=== PATIENT | male | born 1940 | race Caucasian/White ===

== ENCOUNTER 2021-05-01 12:50 | Inpatient (IN) | payer MEDICARE ==
[~2021-05-01] VITALS: Ht 170.5 cm; Wt 85.5 kg
[~2021-05-01 12:50] MED LIST: ALPRAZolam 0.25 MG (XANAX) TAB PO PRN; AMLO-250 PO; ASPI-1238 PO; ATOR80TA76 PO; BISACODYL 10 MG SUPP (DULCOLAX) PR PRN; CALCIUM CARBONATE 500 MG (TUMS) TAB.CHEW PO PRN; CLOP75TA69 PO; DOCUSATE SODIUM 100 MG (COLACE) CAP PO PRN; DOCUSATE SODIUM 100 MG (COLACE) CAP PO SCH; FLEET ENEMA ADULT 1 EA BTL PR PRN; L. A1TAB10 PO; LACTULOSE SYRUP 10GM/15ML (ENULOSE) 30ML UDC PO PRN; LOPERAMIDE 2 MG (IMODIUM) TABLET PO PRN; NALOXONE 0.4 MG/ML 1 ML (NARCAN) VIAL IV PRN; OMEG-132 PO; diphenhydrAMINE 25 MG TAB (BENADRYL) PO PRN; guaiFENesin/CODEINE (ROBITUSSIN AC) 10ML UDC PO PRN; polyethylene glycoL POWDER 17 GM (MIRALAX) PACK PO SCH
[2021-05-01 13:00] VITALS: BP 128/58
[2021-05-01] MEDS ORDERED: SULF1TAB38 PO (13:18)
--- NOTE | 2021-05-01 14:27 | Physical Therapy Evaluation ---
PT Evaluation-General Medical Diagnosis Admission Date May 01, 2021 at 12:50 Medical Diagnosis: CVA Onset Date: Apr 27, 2021 Therapy Diagnosis Therapy Diagnosis: impaired mobility, strength, endurance, balance Precautions Precautions/Isolations: Fall Prevention, Standard Precautions Referral Physician: Anabel Garcia DO Reason for Referral: Evaluation/Treatment Medical History Additional Medical History HLD, hiatal hernia, kidney stones, TIA x3, cholecystectomy Reviewed History: Yes Social History Home: Single Level Current Living Status: Spouse Entry Into Home: Stairs With Railing PT Steps Into Home: 4 Prior Prior Level of Function SCALE: Activities may be completed with or without assistive devices. 2-Tpsgoplrkd-fgjpsba completes the activity by him/herself with no assistance from a helper. 5-Set-up or Clean-up Assistance-helper sets up or cleans up; patient completes activity. [place] assists only prior to or following the activity. 4-Supervision or Touching Assistance-helper provides verbal cues and/or touching/steadying and/or contact guard assistance as patient completes activity. Assistance may be provided throughout the activity or intermittently. 3-Partial/Moderate Assistance-helper does LESS THAN HALF the effort. [place] lifts, holds or supports trunk or limbs, but provides less than half the effort. 2-Substantial/Maximal Assistance-helper does MORE THAN HALF the effort. [place] lifts or holds trunk or limbs and provides more than half the effort. 7-Tqfsbkwev-ynkxfz does ALL the effort. Patient does none of the effort to complete the activity. Or, the assistance of 2 or more helpers is required for the patient to complete the activity. If activity was not attempted, code reason: 7-Patient Refused. 9-Not Applicable-not attempted and the patient did not perform the activity before the current illness, exacerbation or injury. 10-Not Attempted due to Environmental Limitations-(lack of equipment, weather restraints, etc.). 88-Not Attempted due to Medical Conditions or Safety Concerns. Bed Mobility: 6 Transfers (B,C,W/C): 6 Gait: 6 Stairs: 6 Indoor Mobility (Ambulation): Independent Stairs: Independent PT Evaluation-Current Subjective Patient arrives via family transport. Agrees to PT, has no complaints of pain but does have a rash all over his body from aloe that itches. Pt/Family Goals to be independent at home Objective Patient Orientation: Person, Place, Situation ROM/Strength ROM Lower Extremities WNL Strength Lower Extremities LLE (hip flexion 3/5, knee flexion 3-/5, knee extension 3-/5, dorsiflexion 4/5), RLE (hip flexion 4/5, knee flexion 5/5, knee extension 5/5, dorsiflexion 5/5) Neuromuscular (Tone, Coordination, Reflexes) Patient has impaired peripheral vision and tracking on the left side. Sensory Hearing: Functional Sensation Right Lower Extremit: Intact Sensation Left Lower Extremity: Impaired (doesn't have light touch sensation in his toes) Transfers Roll Left & Right (QC): 3 Sit to Lying (QC): 3 Lying to Sitting/Side of Bed(Q: 3 Sit to Stand (QC): 3 Chair/Ycp-ay-Balib Xfer(QC): 3 Toilet Transfer (QC): 3 Car Transfer (QC): 3 Patient performs bed mobility with min assist, supine <-> sit and sit <-> stand mod assist, transfers and car transfer mod assist. Patient often needs cues for safety and hand placement, can be impulsive. Patient has poor sitting balance and can fall to the left side without assist. Patient also stood in the parallel bars x3 for about 1 minute each time working on balance. Gait Does the Patient Walk?: Yes Mode of Locomotion: Walk Anticipated Mode of Locomotion: Walk Walk 10 feet (QC): 3 Walk 50 ft with 2 Turns(QC): 88 Walk 150 ft (QC): 88 Walking 10ft/uneven surface-QC: 88 Distance: 20'x2, 10' Gait Assistive Device: Walker Juan Jose Comments/Gait Description Patient can ambulate 20' with a hemiwalker with mod assist. Initially ambulated with a platform walker and he ambulated with it with min assist but a hemiwalker will be used in therapy in order to improve balance more effectively. Patient needs assist with balance and step pattern, leans to the left. Wheelchair Training Does the Pt Use a Wheelchair?: Yes Distance: 400' Wheel 50 ft with 2 turns (QC): 3 Wheel 150 ft (QC): 3 Type of Wheelchair: Manual Stairs 1 Step (curb) (QC): 88 4 Steps (QC): 88 12 Steps (QC): 88 Balance Sitting Static: Poor Sitting Dynamic: Poor Standing Static: Poor Standing Dynamic: Poor Picking up an Object (QC): 88 Treatment PT worked on bed mobility and transfers, ambulation, WC mobility, standing and positioning during bathing and dressing and ADL's, OT worked on ADL's, bathing, dressing, UE positioning and safety during activity. Assessment/Needs Patient in bed post tx with nurse call, phone, tray, all needs met, bed alarm on. Patient has impaired mobility, strength, endurance, balance. Has left hemiparesis. Patient can be impulsive and loses balance to the left side. Rehab Potential: Fair PT Short Term Goals Short Term Goals Time Frame: May 08, 2021 Roll Left & Right: 4 Sit to lyin (Cynthia) Lying to sitting on side of be: 3 (Cynthia) Sit to stand: 3 (Cynthia) Chair/zma-zc-ydvqv transfer: 3 (Cynthia) Walk 10 feet: 3 (Cynthia) Walk 50 feet with two turns: 3 (Cynthia) PT Assisted Goals Abrasive Band Winder Goals PT Assisted Goals Time Frame: May 22, 2021 Roll Left & Right (QC): 6 Sit to Lying (QC): 4 (SBA) Lying-Sitting on Side/Bed(QC): 4 (SBA) Sit to Stand (QC): 4 (SBA) Chair/Nut-wa-Kqdbl Xfer(QC): 4 (SBA) Toilet Transfer (QC): 4 (SBA) Car Transfer (QC): 4 (SBA) Does the Patient Walk: Yes Walk 10 feet (QC): 4 (CGA) Walk 50ft with 2 Turns (QC): 4 (CGA) Walk 150 ft (QC): 88 Walking 10ft on Uneven Surface: 4 (CGA) 1 Step (curb) (QC): 4 (CGA) 4 Steps (QC): 4 (CGA) 12 Steps (QC): 88 Picking up an Object (QC): 88 Wheel 50 feet with 2 turns (QC: 5 Wheel 150 feet: 5 PT Plan Problem List Problem List: Activity Tolerance, Functional Strength, Safety, Balance, Gait, Transfer, Bed Mobility, ROM Treatment/Plan Treatment Plan: Continue Plan of Care Treatment Plan: Bed Mobility, Education, Functional Activity Jose Carlos, Functional Strength, Group Therapy, Gait, Safety, Therapeutic Exercise, Transfers Treatment Duration: May 22, 2021 Frequency: At least 5 of 7 days/Wk (IRF) Estimated Hrs Per Day: 1.5 hours per day Patient and/or Family Agrees t: Yes Safety Risks/Education Patient Education: Gait Training, Transfer Techniques, Steps, Correct Positioning, W/C Management, Safety Issues Teaching Recipient: Patient Teaching Methods: Demonstration, Discussion Response to Teaching: Reinforcement Needed Discharge Recommendations Plan Patient will perform bed mobility and transfer training, balance and endurance training, functional strengthening, stair training, gait training, and education, to improve functional mobility and independence at home. Therapy Discharge Recommendati: Scheduled Assistance, Home & Family, Post Acute PT Time/GCodes Time In: 1250 Time Out: 1430 Total Billed Treatment Time: 90 Total Billed Treatment 1 visit EVM 10' FA 80' PT eval from [id number], OT eval from [id number], co-treat from [id number] FELIZ GRIMM PT May 01, 2021 14:27
--- NOTE | 2021-05-01 14:32 | Occupational Therapy Eval ---
OT Evaluation-General/PLF Medical Diagnosis Admission Date May 01, 2021 at 12:50 Medical Diagnosis: CVA Onset Date: Apr 27, 2021 Therapy Diagnosis Therapy Diagnosis: weakness, decreased ADL Status Precautions Precautions/Isolations: Fall Prevention, Standard Precautions Referral Physician: Radha Whitehead Reason: Evaluation/Treatment Medical History Additional Medical History HLD, hiatal hernia, kidney stones, TIA x3, cholecystectomy Current History Pt admitted to OSH with loss of vision in R eye, found R carotid artery 95% occluded. 04-27-21 underwent R carotid endarterectomy. 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 05-01 admitted to [facility] for continued medication management and skilled therapy. Social History Home: Single Level Current Living Status: Spouse Entry Into Home: Stairs With Railing Steps Into Home: 4 ADL-Prior Level of Function SCALE: Activities may be completed with or without assistive devices. 4-Tvhebpguck-avcdkfs completes the activity by him/herself with no assistance from a helper. 5-Set-up or Clean-up Assistance-helper sets up or cleans up; patient completes activity. [place] assists only prior to or following the activity. 4-Supervision or Touching Assistance-helper provides verbal cues and/or touching/steadying and/or contact guard assistance as patient completes activity. Assistance may be provided throughout the activity or intermittently. 3-Partial/Moderate Assistance-helper does LESS THAN HALF the effort. [place] lifts, holds or supports trunk or limbs, but provides less than half the effort. 2-Substantial/Maximal Assistance-helper does MORE THAN HALF the effort. [place] lifts or holds trunk or limbs and provides more than half the effort. 2-Eygxgqcvh-nudyme does ALL the effort. Patient does none of the effort to compl ete the activity. Or, the assistance of 2 or more helpers is required for the patient to complete the activity. If activity was not attempted, code reason: 7-Patient Refused. 9-Not Applicable-not attempted and the patient did not perform the activity before the current illness, exacerbation or injury. 10-Not Attempted due to Environmental Limitations-(lack of equipment, weather restraints, etc.). 88-Not Attempted due to Medical Conditions or Safety Concerns. ADL PLOF Comments Pt reports IND with all ADLs and functional mobility at PLOF, no AD/AE Self Care: Independent Functional Cognition: Independent DME/Equipment: Grab Bars, Shower OT Current Status Subjective Pt agreeable to OT evaluation and OT/PT cotreat Mental Status/Objective Patient Orientation: Person, Place, Situation Attachments: Samano Catheter Current Dentures/Partials: Yes Hand Dominance: Right Upper Extremity ROM RUE WFL, shoulder flexion to approx 140 degrees. LUE decreased, pt able to slightly shrug shoulders, and trace elbow movements. No movement noted at wrist/fingers. Upper Extremity Coordination Decreased due to limited LUE movement, L visual field cut, and impaired depth perception Upper Extremity Sensation RUE WFL LUE: Pt reports intact light touch, decreased proprioception Upper Extremity Strength RUE grossly 4/5 LUE impaired ADL-Treatment Eating (QC): 3 (Pt requires assistance to cut food and open contiainers. Assistance to locate food due to impaired vision.) Oral Hygiene (QC): 3 (Pt removed dentures, brushed mouth after set up of toothbrush. Assist to brush dentures.) Shower/Bathe Self (QC): 2 (Pt able to wash chest/abdomen, periarea, thighs, and LUE with cues. Assist to wash RUE, buttocks, bilateral lower legs/feet) Upper Body Dressing (QC): 3 (Pt able to doff shirt. Pt required assistance with orientation of shirt, assist threading head and LUE) Lower Body Dressing (QC): 1 (Assist threading BLEs and pant hike) On/Off Footwear (QC): 1 (Assist donning/doffing footwear) Toileting Hygiene (QC): 1 (assist with clothing management and hygiene) Other Treatments OT evaluation complete. OT/PT cotreat due to skill of 2 clinicians required which a rehabilitation therapist could not perform in order to coordinate UE/LEs, decrease fall risk and due to pt's limitations in strength, activity tolerance, transfers/mobility, L side weakness, vision deficits (impaired peripheral vision and tracking on L side). OT focused on UE placement, cues for sequencing and safety, ADLs, PT focused on LE placement, gross overall movement, and transfers/mobility. Pt used L platform walker with min A, hemiwalker with mod A 20'. Pt performed functional transfers, please refer to PT note for QCs. Pt then taken into bathroom, transferring to ID. Pt completed shower, then transferred to w/c to don clothes, and sat at sink to brush teeth. QC scores listed above. Pt then performed w/c mobility, and stood at parallel bars x3 trials, ~1 min each time. Pt returned to room, transferring to bed. Post tx, pt laying in bed, call light in reach and all needs met. min A bed mobility, mod A supine to/from sit, mod A sit to/from stand, mod A transfers. Cues for hand placement and safety as pt can be impulsive. Education OT Patient Education: Correct positioning, Modified ADL techniques, Progress toward Goal/Update tx plan, Purpose of tx/functional activities, Rehab process, Safety issues, Transfer techniques Teaching Recipient: Patient Teaching Methods: Discussion Response to Teaching: Verbalize Understanding OT Short Term Goals Short Term Goals Time Frame: May 11, 2021 Shower/bathe self: 3 Upper body dressin Lower body dressin Putting on/taking off footwear: 3 OT [facility] Goals [place] Goals Time Frame: Jun 01, 2021 Eating (QC): 5 Oral Hygiene (QC): 5 Toileting Hygiene (QC): 4 Shower/Bathe Self (QC): 4 Upper Body Dressing (QC): 5 Lower Body Dressing (QC): 4 On/Off Footwear (QC): 4 Additional Goals: 1-Demonstrate ADL Tasks, 2-Verbalize Understanding, 3- ImproveStrength/Jose Carlos 1=Demonstrate adherence to instructed precautions during ADL tasks. 2=Patient will verbalize/demonstrate understanding of assistive devices/modifications for ADL. 3=Patient will improve strength/tolerance for activity to enable patient to perform ADL's. OT Education/Plan Problem List/Assessment Assessment: Decreased Activ Tolerance, Decreased Safety Aware, Decreased UE Strength, Impaired Bed Mobility, Impaired Coordination, Impaired Funct Balance, Impaired I ADL's, Impaired Self-Care Skills, Visual-Perceptual Deficit Discharge Recommendations Plan/Recommendations: Continue POC Equpiment Recommendations-D/C: Bath Chair Treatment Plan/Plan of Care Patient would benefit from OT for education, treatment and training to promote independence in ADL's, mobility, safety and/or upper extremity function for ADL's. Plan of Care: ADL Retraining, Functional Mobility, Group Exercise/Act as Ind, UE Funct Exercise/Act Treatment Duration: Jun 01, 2021 Frequency: At least 5 of 7 days/Wk (IRF) Estimated Hrs Per Day: 1.5 hours per day Agreement: Yes Rehab Potential: Fair Time/GCodes Start Time: 13:00 Stop Time: 14:30 Total Time Billed (hr/min): 90 Billed Treatment Time [id number] OT eval, [id number] OT/PT cotreat 1, EVM (10'), FA 3 (45), ADL 2 (35) BURKE ROCHA OT May 01, 2021 14:32
--- NOTE | 2021-05-01 15:15 | Progress Note ---
JACINTO BARR MED STUDENT 05/01/21 1515: Progress Note CC: Weakness and debility. HPI: Mo Allen is an 80 y/o WM who presents to [facility] via [facility] by private vehicle after being discharged from [facility] in [place], [place]. He states that several weeks ago he was sitting at this computer and suffered sudden painless vision loss in the right eye. He went to urgent care in [place] and was subsequently sent to an ophthamologist. Patient reports he was subseq uently admitted to the hospital and was told he'd had a stroke. Upon subsequent workup it was found that he had severe right carotid artery stenosis and underwent a carotid endarectomy on April 27, [address] Arias. Postoperatively he developed LUE and LLE weakness and underwent a CTA of the head and neck which was negative for acute findings. The next day he continued having LUE and LLE weakness as well as worsening left eyelid ptosis and left mouth droop. An MRI or the head was ordered and neurology was consulted. Patient was started on plavix, ASA, and lipitor. Due to urinary retention postop flomax was started. MRI demonstrated worsened multifocal moderate to large ischemic infarct involving right temporal, parietal, and occipital lobe. There was also an acute lacunar infarct in the right thalamus. No evidence of mass effect, midline shift, or hydrocephalus. Patient transferred to rehab unit to work with PT/OT/ST. Currently he denies chest pain, SOB, fevers, chills, constipation, dizziness, and vomiting. Denies pain. Reports rash all over body after being exposed to bathing wipes with aloe. PMH: Carotid artery stenosis, HLP, TIA x3, CVA x 2, Hiatal hernia, Nephrolithiasis, Urinary retention, PSH: Carotid endarectomy right side, Cholecystectomy, vasectomy, cataract x 2, Allergy: Flu vaccine, anaphylaxis and nausea. Aloe, hives. Keflex, anaphylaxis and hives. Denies environmental and food allergies. Medications: Asa 81mg po daily. Lactobacillus 1 capsule po daily. Plavix 75mg po daily. Norvasc 5mg po daily. Lipitor 80mg po hs daily. Ibuprofen 200-400mg po q6hr prn. SH: Retired from [employer] in 1993. Lives at home in [place], [place] with . Recently relocated here from [facility] in February 2021. 40 pack year smoking history, quit in 2001. No alcohol. No recreational drug use. FH: Mom, from [facility]. Dad, from [place]. Eldest son from cancer. 1 son with heart problems. ROS: General: Denies fevers, chills, malaise, night sweats. Reports generalized weakness. HEENT: Reports new onset headaches post recent CVA's. Reports left eye lid droop which is worse than normal post CVA. Loss of vision R eye post recent CVA. No ot orrhea. No rhinorrhea. Denies sore thorat. Neck: Denies sore throat or drainage. CV: Denies chest pain, palpitation, fluttering, syncopal episodes. Denies lower extrem swelling. Pulm: Denies cough, SOB, and wheezing. GI: Denies abdominal pain, constipation, diarrhea, nausea, and vomiting. Reports chronic dysphagia. : Reports recent difficulty with voiding. Denies dysuria, frequency, or urgency. Reports trouble emptying bladder at times. Neruo: Reports vision loss R eye. Reports left arm weakness and left leg weakness post stroke. Denies numbness and tingling of extremities. Denies seizure history. Skin: Reports generalized rash after using aloe recently as surgical bath prep Friday. Reports some residual itching and hives. Denies skin ulcers, tears, or other lesions. Physical Exam: BP R RR T SPO2 General: Elderly male appearing stated age in no apparent distress resting comfortably HEENT: Normocephalic and atraumatic. Left severe eyelid ptosis. PERRLA. No otorrhea noted. Nares patent bilaterally without rhinorrhea. Throat without erythema or exudates. CV: RRR. No murmur. Cap refill <2 seconds bilateral hands. No edema of lower extremities. Pulm: Lungs CTAB. No retractions or accessory muscle use. Abdomen: Abdomen soft and non-distended. BS normoactive x4 quadrants. No rebound or guarding. Extremities: Left arm limited in flexion to about 35-40 degrees. Minimal ability to abduct, extend, and adduct left shoulder. Absent palmar grasp left hand. Left hip flexion strength 3/5 vs right hip flexion of 5/5. Skin: Warm dry and pink. Diffuse maculopapular rash noted on patient abdomen, back, legs, and arms. Scattered ecchymotic areas bilateral arms. Right carotid endarectomy incision well approximated without drainage. No erythema. Open to air. Neuro: Left significant eyelid ptosis noted as compared to right. Left arm strength 2/5 in flexion at the shoulder. Absent palmar grasp left hand. Sensation intact to entire left arm. Left hip flexion 3/5 as compared to right 5/5. Sensation intact to entirety of left leg. Cranial nerves 2-12 grossly intact. Labs: On 04-30-21 from OSH. WBC 8.8. Hgb 11.2 Plat 189. Na 137. K 3.7. Creat 0.7. Images: None. Assessment: Debility S/P right carotid endarectomy 04-27-21 complicated by Right MCA CVA S/P recent embolic CVA with vision loss R eye Carotid artery stenosis HLP H/O TIA x 3 Urinary retention Plan: PT and OT evaluate and treat Diet consistency per speech language pathology Activity to be determined by therapy Restart home meds Start flomax Consult Dr. Bernardo due to postop urinary retention with indwelling marino in place Vitals per protocol Fall precautions Aspiration precautions IS q2hr WA ANABEL CABELLO DO 05/02/21 0549: Supervisory-Addendum Brief Verification & Attestation Participated in pt care: history, MDM, physical Personally performed: exam, history, MDM, supervision of care Care discussed with: Medical Student Procedures: n/a Results interpretation: Verified all documentation Verification and Attestation of Medical Student E/M Service A medical student performed and documented this service in my presence. I reviewed and verified all information documented by the medical student and made modifications to such information, when appropriate. I personally performed the physical exam and medical decision making. Anabel Cabello, May 02, 2021,05:49 JACINTO BARR MED STUDENT May 01, 2021 15:15 ANABEL CABELLO DO May 02, 2021 05:49
[2021-05-01] MEDS ORDERED: ANTACID SUSP 30 ML UDC (MYLANTA) PO PRN (18:00)
[2021-05-01 18:11] LABS: CLARITY,URINE CLEAR; COLOR,URINE YELLOW; GLUCOSE, URINE (UA) NEGATIVE (NEGATIVE); KETONES,URINE 2+ (NEGATIVE); LEUKOCYTE ESTERASE ,URINE 1+ (NEGATIVE); NITRITE,URINE NEGATIVE (NEGATIVE); PROTEIN,URINE TRACE (NEGATIVE)
[2021-05-01] MEDS: TAMSULOSIN 0.4 MG (FLOMAX) CAP PO SCH (18:25)
[2021-05-01] MEDS: TRIM/SULFAMETH 160/800 (SEPTRA DS) TAB PO SCH (18:25)
[2021-05-01 18:31] LABS: BILIRUBIN,URINE 1+ (NEGATIVE)
[2021-05-01 18:34] LABS: AMORPHOUS SEDIMENT,UR FEW AMOR URATES /LPF; BACTERIA,URINE TRACE /HPF; RBC,URINE 25-50 /HPF
[2021-05-01 20:00] VITALS: BP 119/72
[2021-05-01] MEDS: polyethylene glycoL POWDER 17 GM (MIRALAX) PACK PO SCH (20:43)
[2021-05-01] MEDS: SUCRALFATE 1 GM (CARAFATE) TAB PO SCH (20:58)
[2021-05-01] MEDS: CALCIUM CARBONATE 500 MG (TUMS) TAB.CHEW PO SCH (20:58)
[2021-05-01] MEDS: PANTOPRAZOLE 40 MG (PROTONIX) TAB PO SCH (20:59)
[2021-05-01] MEDS: MELATONIN 3 MG TABLET PO PRN (21:00)
[2021-05-01] MEDS: HYDROcodone/APAP 5 MG/325 MG (LORTAB) TAB PO PRN (21:00)
--- NOTE | 2021-05-01 21:35 | PM&R Post Admission Assessment ---
PM&R HP Date of Visit: May 01, 2021 Time of Visit: 20:00 History of Present Illness Chief complaint: CVA with left-sided weakness History of present illness: This is an 80-year-old white male who just relocated from [facility] in the [facility] who previously retired from [employer] who is currently who is just arrived from [place] after suffering a stroke post right carotid endarterectomy by Dr. Arias. He will need aggressive therapy in order to regain function of his left side. He is having significant urinary retention Bactrim was placed for prophylaxis of UTI and urology will be consulted due to indwelling catheter. Patient denies any pain. He denies any oxygen supplementation. Bowels are not moving so will maintain laxative regimen. Prior level of functioning was ambulatory without use of assistive devices and independent with ADLs. H&P from Иван Fields, MARLINEV: CC: Weakness and debility. HPI: Mo Allen is an 80 y/o WM who presents to [facility] via [facility] rehab by private vehicle after being discharged from [facility] in [place], [place]. He states that several weeks ago he was sitting at this computer and suffered sudden painless vision loss in the right eye. He went to urgent care in [place] and was subsequently sent to an ophthamologist. Patient reports he was s ubsequently admitted to the hospital and was told he'd had a stroke. Upon subsequent workup it was found that he had severe right carotid artery stenosis and underwent a carotid endarectomy on April 27, [address] Arias. Postoperatively he developed LUE and LLE weakness and underwent a CTA of the head and neck which was negative for acute findings. The next day he continued having LUE and LLE weakness as well as worsening left eyelid ptosis and left mouth droop. An MRI or the head was ordered and neurology was consulted. Patient was started on plavix, ASA, and lipitor. Due to urinary retention postop flomax was started. MRI demonstrated worsened multifocal moderate to large ischemic infarct involving right temporal, parietal, and occipital lobe. There was also an acute lacunar infarct in the right thalamus. No evidence of mass effect, midline shift, or hydrocephalus. Patient transferred to rehab unit to work with PT/OT/ST. Currently he denies chest pain, SOB, fevers, chills, constipation, dizziness, and vomiting. Denies pain. Reports rash all over body after being exposed to bathing wipes with aloe. PMH: Carotid artery stenosis, HLP, TIA x3, CVA x 2, Hiatal hernia, Nephrolithiasis, Urinary retention, PSH: Carotid endarectomy right side, Cholecystectomy, vasectomy, cataract x 2, Allergy: Flu vaccine, anaphylaxis and nausea. Aloe, hives. Keflex, anaphylaxis and hives. Denies environmental and food allergies. Medications: Asa 81mg po daily. Lactobacillus 1 capsule po daily. Plavix 75mg po daily. Norvasc 5mg po daily. Lipitor 80mg po hs daily. Ibuprofen 200-400mg po q6hr prn. SH: Retired from [employer] in 1993. Lives at home in [place], [place] with . Recently relocated here from [facility] in February 2021. 40 pack year smoking history, quit in 2001. No alcohol. No recreational drug use. FH: Mom, from [facility]. Dad, from [employer]. Eldest son from cancer. 1 son with heart problems. ROS: General: Denies fevers, chills, malaise, night sweats. Reports generalized weakness. HEENT: Reports new onset headaches post recent CVA's. Reports left eye lid droop which is worse than normal post CVA. Loss of vision R eye post recent CVA. No otorrhea. No rhinorrhea. Denies sore thorat. Neck: Denies sore throat or drainage. CV: Denies chest pain, palpitation, fluttering, syncopal episodes. Denies lower extrem swelling. Pulm: Denies cough, SOB, and wheezing. GI: Denies abdominal pain, constipation, diarrhea, nausea, and vomiting. Reports chronic dysphagia. : Reports recent difficulty with voiding. Denies dysuria, frequency, or urgency. Reports trouble emptying bladder at times. Neruo: Reports vision loss R eye. Reports left arm weakness and left leg weakness post stroke. Denies numbness and tingling of extremities. Denies seizure history. Skin: Reports generalized rash after using aloe recently as surgical bath prep Friday. Reports some residual itching and hives. Denies skin ulcers, tears, or other lesions. Physical Exam: BP R RR T SPO2 General: Elderly male appearing stated age in no apparent distress resting comfortably HEENT: Normocephalic and atraumatic. Left severe eyelid ptosis. PERRLA. No otorrhea noted. Nares patent bilaterally without rhinorrhea. Throat without erythema or exudates. CV: RRR. No murmur. Cap refill <2 seconds bilateral hands. No edema of lower extremities. Pulm: Lungs CTAB. No retractions or accessory muscle use. Abdomen: Abdomen soft and non-distended. BS normoactive x4 quadrants. No rebound or guarding. Extremities: Left arm limited in flexion to about 35-40 degrees. Minimal ability to abduct, extend, and adduct left shoulder. Absent palmar grasp left hand. Left hip flexion strength 3/5 vs right hip flexion of 5/5. Skin: Warm dry and pink. Diffuse maculopapular rash noted on patient abdomen, back, legs, and arms. Scattered ecchymotic areas bilateral arms. Right carotid endarectomy incision well approximated without drainage. No erythema. Open to air. Neuro: Left significant eyelid ptosis noted as compared to right. Left arm strength 2/5 in flexion at the shoulder. Absent palmar grasp left hand. Sensation intact to entire left arm. Left hip flexion 3/5 as compared to right 5/5. Sensation intact to entirety of left leg. Cranial nerves 2-12 grossly intact. Labs: On 04-30-21 from OSH. WBC 8.8. Hgb 11.2 Plat 189. Na 137. K 3.7. Creat 0.7. Images: None. Assessment: Debility S/P right carotid endarectomy 04-27-21 complicated by Right MCA CVA S/P recent embolic CVA with vision loss R eye Carotid artery stenosis HLP H/O TIA x 3 Urinary retention Plan: PT and OT evaluate and treat Diet consistency per speech language pathology Activity to be determined by therapy Restart home meds Start flomax Consult Dr. Bernardo due to postop urinary retention with indwelling marino in place Vitals per protocol Fall precautions Aspiration precautions IS q2hr WA Past Cnpocuz-Dmnaom-Ltgofj Hx Past Med/Social Hx: Reviewed Nursing Past Med/Soc Hx, Reviewed and Corrections made Patient Social History Marrital Status: Employed/Student: retired Alcohol Use: Denies Use Smoking Status: Former Smoker (Quit in 2001) Past Medical History Surgeries: Vascular Surgery (Carotid endarterectomy right) Cardiac: High Cholesterol, Hypertension Neurological: Stroke, TIA Genitourinary: Prostate Problems Gastrointestinal: Gastroesophageal Reflux Musculoskeletal: Arthritis Prior Level of Function Bed Mobility: 6 Transfers: 6 Gait: 6 Stairs: 6 Indoor Mobility (Ambulation): Independent Stairs: Independent Self Care: Independent Functional Cognition: Independent Current Level of Fuctioning Roll Left to Right: 3 Sit to Lyin Lying to Sitting/Side of Bed: 3 Sit to Stand: 3 Chair/Mre-mw-Bvicv Xfer: 3 Car Transfer: 3 Does the Patient Walk: Yes Mode of Locomotion: Walk Anticipated Mode of Locomotion: Walk Walk 10 feet: 3 Walk 50 ft with 2 Turns: 88 Walk 150 ft: 88 Walking 10ft on uneven surface: 88 Gait Assistive Device: Walker Juan Jose Does the Pt Use a Wheelchair: Yes Wheelchair Distance: 400' Wheel 50 ft with 2 turns: 3 Wheel 150 ft: 3 Type of Wheelchair: Manual 1 Step (curb): 88 4 Steps: 88 12 Steps: 88 Eatin (Pt requires assistance to cut food and open contiainers. Assistance to locate food due to impaired vision.) Oral Hygiene: 3 (Pt removed dentures, brushed mouth after set up of toothbrush. Assist to brush dentures.) Shower/Bathe Self: 2 (Pt able to wash chest/abdomen, periarea, thighs, and LUE with cues. Assist to wash RUE, buttocks, bilateral lower legs/feet) Upper Body Dressin (Pt able to doff shirt. Pt required assistance with orientation of shirt, assist threading head and LUE) Lower Body Dressin (Assist threading BLEs and pant hike) On/Off Footwear: 1 (Assist donning/doffing footwear) Toileting Hygiene: 1 (assist with clothing management and hygiene) PM&R Allergy/Meds/Data Review Allergies Coded Allergies: aloe vera (Verified Allergy, Unknown, 05/01/21) cephalexin (Verified Allergy, Unknown, 05/01/21) influenza virus vaccine ts [id number] (36 mos,up) (Verified Allergy, Unknown, 05/01/21) Home Medications Scheduled Amlodipine Besylate (Amlodipine Besylate), 5 MG PO DAILY, (Reported) Aspirin (Aspirin EC), 81 MG PO DAILY, (Reported) Atorvastatin Calcium (Atorvastatin Calcium), 80 MG PO HS, (Reported) Clopidogrel Bisulfate (Plavix), 75 MG PO DAILY, (Reported) L. Acidophilus/L.bulgaricus (Lactobacillus Tablet), 1 EACH PO DAILY, (Reported) Omega3,5,6,7,9 No.1/[place] Oil (Complete [place] Softgel), 1 EACH PO DAILY, (Reported) Sulfamethoxazole/Trimethoprim (Bactrim Ds Tablet), 1 EACH PO BID, (Reported) Current Medications Current Medications Reviewed Laboratory Data Laboratory Tests 05/01/21 17:55: Urine Color YELLOW, Urine Clarity CLEAR, Urine pH 6.0, Urine Specific [place] 1.025H, Urine Protein TRACEH, Urine Glucose (UA) NEGATIVE, Urine Ketones 2+H, Urine Nitrite NEGATIVE, Urine Bilirubin 1+H, Urine Urobilinogen 0.2, Urine Leukocyte Esterase 1+H, Urine RBC (Auto) 3+H, Urine RBC 25-50H, Urine WBC 5-10H, Urine Crystals PRESENTH, Urine Amorphous Sediment FEW HENOK URATESH, Urine Bacteria TRACE, Urine Casts PRESENT, Urine Hyaline Casts 2-5H, Urine Mucus MODERATEH, Urine Culture Indicated YES Review of Systems Constitutional: see HPI, malaise, weakness EENTM: other (Dysphagia) Respiratory: no symptoms reported Cardiovascular: no symptoms reported Gastrointestinal: no symptoms reported Genitourinary: other (Retention) Skin: no symptoms reported Psychiatric/Neurological: Weakness All Other Systems Reviewed Negative Unless Noted: Yes Physical Exam Physical Exam Vital Signs Vital Signs - First Documented 05/01/21 13:00 Temp 36.0 Pulse 107 Resp 20 B/P (MAP) 128/58 (81) Pulse Ox 94 O2 Delivery Room Air Capillary Refill : Height, Weight, BMI Height: '" Weight: lbs. oz. kg; 27.93 BMI Method: General Appearance: No Apparent Distress, WD/WN, Chronically ill Eyes: Bilateral Eye Normal Inspection, Bilateral Eye PERRL HEENT: PERRL/EOMI, Normal ENT Inspection, Pharynx Normal Neck: Full Range of Motion, Normal Inspection, Non Tender, Supple, Carotid Bruit Respiratory: Chest Non Tender, Lungs Clear, Normal Breath Sounds, No Accessory Muscle Use, No Respiratory Distress Cardiovascular: Regular Rate, Rhythm, No Edema, No Gallop, No JVD, No Murmur, Normal Peripheral Pulses Gastrointestinal: Normal Bowel Sounds, No Organomegaly, No Pulsatile Mass, Non Tender, Soft Back: Normal Inspection, No CVA Tenderness, No Vertebral Tenderness Extremity: Normal Capillary Refill, Normal Inspection, Normal Range of Motion, Non Tender, No Calf Tenderness, No Pedal Edema Neurologic/Psychiatric: Alert, Oriented x3, Normal Mood/Affect, 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 Norm as Tested, Abnormal Gait, EOM Palsy (Left), Facial Droop (Left side), Motor Weakness (Left-sided weakness 2/5 upper and lower extremities) Skin: Normal Color, Warm/Dry Lymphatic: No Adenopathy PM&R Medical Assessment & Plan REHAB/MEDICAL ASSESSMENT AND PLAN: REHAB IMPAIRMENT GROUP: CVA ETIOLOGIC DIAGNOSIS: CVA The comorbidities that impact the patients function and/or functional outcome by: Left-sided weakness, left-sided neglect, advanced age REHAB PLAN: The patient is being admitted to our comprehensive inpatient rehabilitation facility and can tolerate the intensity of service consisting of at least: 180 minutes of therapy a day, 5 out of 7 days a week Rehab treatment will consist of: PT and OT will focus on regaining enough ambulatory function with the use of assistive devices and increase ADL independence in order to return to independent living with her his The patient/family has a good understanding of our discharge process and will benefit from an interdisciplinary inpatient rehabilitation program. The patient has potential to make improvement and is in need of at least two of the following multidisciplinary therapies including but not limited to physical, occupational, speech, and prosthetics and orthotics. Additionally the patient will need services from respiratory, nutritional services, wound care, psychology, etc. (Customize this to each patient). Given the patients complex condition and risk of further medical complications, rehabilitation services cannot be safely or effectively provided at a lower level of care such as a intermediate facility. BARRIERS TO DISCHARGE: Advanced age with left-sided weakness ESTIMATED LOS: 10 days DISPOSITION: Home RELEVANT CHANGES SINCE PREADMISSION SCREENING: I have compared the patients medical and functional status at the time of the preadmission screening and there are: No changes PROGNOSIS: Good REHABILITATION GOALS: 1. PT and OT will focus on regaining enough ambulatory function with the use of assistive devices and increase ADL independence in order to return to independent living with her his All the above goals were reviewed with the patient and he/she is in agreement. By signing this document, I acknowledge that I have personally performed a full physical examination on this patient within 24 hours of admission to this inpatient rehabilitation facility and have determined the patient to be able to tolerate the above course of treatment at an intensive level for a reasonable period of time. I will be completing a detailed individualized Plan of Care for this patient by day #4 of the patients stay based upon the Preadmission Screen, the Post-Admission Evaluation, and the therapy evaluations. Admission Dx/Comorbidities: (1) CVA (cerebral vascular accident) ICD Codes: I63.9 - Cerebral infarction, unspecified Assessment/Plan Assessment and Plan Assess & Plan/Chief Complaint Assessment: S/P right carotid endarectomy 04-27-21 complicated by Right MCA CVA S/P recent embolic CVA with vision loss R eye Carotid artery stenosis HLP H/O TIA x 3 Urinary retention with indwelling Marino in place Plan: Aggressive therapy Urology consult Monitor closely GUILLERMO CABELLO DO May 01, 2021 21:35
[2021-05-01] MEDS: SENNA W/DOCUSATE (SENOKOT S) TABLET PO SCH (21:55)
[2021-05-01] MEDS: DOCUSATE SODIUM 100 MG (COLACE) CAP PO SCH (21:55)
[2021-05-01 22:00] VITALS: BP 119/72
[2021-05-01] MEDS: ONDANSETRON 4 MG (ZOFRAN) ORAL DISSOLVE TAB PO PRN (22:18)
[2021-05-02] MEDS: CALCIUM CARBONATE 500 MG (TUMS) TAB.CHEW PO SCH ×6 (01:03→18:36)
--- NOTE | 2021-05-02 06:26 | PM&R Progress Note ---
Subjective HPI/CC On Admission Date Seen by Provider: May 02, 2021 Time Seen by Provider: 11:00 Subjective/Events-last exam 05/02/2021: Pt doing pretty well Became tearful a bit today No BM since 04/27 so laxatives given Nausea a bit last night Dr. Valencia saw him and will perform a cystoscopy tomorrow Dysphasia noted Left arm is tingling so hopefully we will regain some function Review of Systems General: Fatigue Neurological: Weakness, Incoordination Objective Exam Vital Signs Vital Signs Date Time Temp Pulse Resp B/P (MAP) Pulse Ox O2 Delivery O2 Flow Rate FiO2 05/02/21 09:00 Room Air 05/02/21 08:00 36.5 89 20 135/62 (86) 99 Capillary Refill : General Appearance: No Apparent Distress, WD/WN, Chronically ill HEENT: PERRL/EOMI, Normal ENT Inspection, Pharynx Normal Neck: Full Range of Motion, Normal Inspection, Non Tender, Supple, Carotid Bruit Respiratory: Chest Non Tender, Lungs Clear, Normal Breath Sounds, No Accessory Muscle Use, No Respiratory Distress Cardiovascular: Regular Rate, Rhythm, No Edema, No Gallop, No JVD, No Murmur, Normal Peripheral Pulses Gastrointestinal: Normal Bowel Sounds, No Organomegaly, No Pulsatile Mass, Non Tender, Soft Back: Normal Inspection, No CVA Tenderness, No Vertebral Tenderness Extremity: Normal Capillary Refill, Normal Inspection, Normal Range of Motion, Non Tender, No Calf Tenderness, No Pedal Edema Neurologic/Psychiatric: Alert, Oriented x3, Normal Mood/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 FIM Transfers Therapy Code Descriptions/Definitions Functional [place] Measure: 0=Not Assessed/NA 4=Minimal Assistance 1=Total Assistance 5=Supervision or Setup 2=Maximal Assistance 6=Modified [place] 3=Moderate Assistance 7=Complete IndependenceSCALE: Activities may be completed with or without assistive devices. 9-Ipffshqmeq-jivfass completes the activity by him/herself with no assistance from a helper. 5-Set-up or Clean-up Assistance-helper sets up or cleans up; patient completes activity. [place] assists only prior to or following the activity. 4-Supervision or Touching Assistance-helper provides verbal cues and/or touching/steadying and/or contact guard assistance as patient completes activity. Assistance may be provided throughout the activity or intermittently. 3-Partial/Moderate Assistance-helper does LESS THAN HALF the effort. [place] lifts, holds or supports trunk or limbs, but provides less than half the effort. 2-Substantial/Maximal Assistance-helper does MORE THAN HALF the effort. [place] lifts or holds trunk or limbs and provides more than half the effort. 5-Wgbkurldd-sieost does ALL the effort. Patient does none of the effort to complete the activity. Or, the assistance of 2 or more helpers is required for the patient to complete the activity. If activity was not attempted, code reason: 7-Patient Refused. 9-Not Applicable-not attempted and the patient did not perform the activity before the current illness, exacerbation or injury. 10-Not Attempted due to Environmental Limitations-(lack of equipment, weather restraints, etc.). 88-Not Attempted due to Medical Conditions or Safety Concerns. Roll Left to Right (QC): 3 Sit to Lying (QC): 3 Sit to Stand (QC): 3 Chair/Fsz-na-Ypcrn Xfer(QC): 3 Car Transfer (QC): 3 Gait Training Does the Patient Walk?: Yes Walk 10 feet (QC): 3 Walk 50 ft with 2 Turns(QC): 88 Walk 150 ft (QC): 88 Walking 10ft/uneven surface-QC: 88 Gait Assistive Device: Walker Juan Jose Wheelchair Training Does the Pt Use a Wheelchair?: Yes Distance: 400' Wheel 50 ft with 2 turns (QC): 3 Wheel 150 ft (QC): 3 Type of Wheelchair: Manual Stair Training 1 Step (curb) (QC): 88 4 Steps (QC): 88 12 Steps (QC): 88 ADL-Treatment Eating (QC): 3 (Pt requires assistance to cut food and open contiainers. Assistance to locate food due to impaired vision.) Oral Hygiene (QC): 3 (Pt removed dentures, brushed mouth after set up of toothbrush. Assist to brush dentures.) Shower/Bathe Self (QC): 2 (Pt able to wash chest/abdomen, periarea, thighs, and LUE with cues. Assist to wash RUE, buttocks, bilateral lower legs/feet) Upper Body Dressing (QC): 3 (Pt able to doff shirt. Pt required assistance with orientation of shirt, assist threading head and LUE) Lower Body Dressing (QC): 1 (Assist threading BLEs and pant hike) On/Off Footwear (QC): 1 (Assist donning/doffing footwear) Toileting Hygiene (QC): 1 (assist with clothing management and hygiene) Assessment/Plan Assessment and Plan Assess & Plan/Chief Complaint Assessment: S/P right carotid endarectomy 04-27-21 complicated by Right MCA CVA S/P recent embolic CVA with vision loss R eye Carotid artery stenosis HLP H/O TIA x 3 Urinary retention with indwelling Samano in place Plan: Aggressive therapy Urology consult Monitor closely 05/02/2021: Appreciate urology Cystoscopy tomorrow Bowel regimen (1) CVA (cerebral vascular accident) GUILLERMO CABELLO DO May 02, 2021 06:26
--- NOTE | 2021-05-02 06:27 | Individualized Plan of Care ---
Individualized Plan of Care Rehab Nursing IPOC Order Admission Date May 01, 2021 at 12:50 Current Orders Orders Admission Order(Inpt,Obs,Sdc) (05/01/21 06:42) Vital Signs: Per Unit Policy ( ,16,00 (05/01/21 06:42) Nilesh Morales (05/01/21 06:42) Sequential Compression Device .admit (05/01/21 06:42) Electronic Organ Mechanic-Inpt Rehab Con (05/01/21 06:42) Rehab Nursing Orders-Ipoc (05/01/21 06:42) Physical Therapy Rehab Orders (05/01/21 06:42) Occupational Therapy Rehab Ord (05/01/21 06:42) Speech Therapy Rehab Orders (05/01/21 06:42) Cbc With Automated Diff (05/02/21 06:00) Comprehensive Metabolic Panel (05/02/21 06:00) Precautions (Aru) (05/01/21 06:42) Rehab-Intensity Of Therapy (05/01/21 06:42) Initiate Admission Nursing Pro .admission (05/01/21 06:42) Alprazolam Tablet (Xanax Tablet) (05/01/21 06:45) Calcium Carbonate Chew Tablet (Antacid C (05/01/21 06:45) Diphenhydramine Tablet (Benadryl Tablet) (05/01/21 06:45) Docusate Sodium Capsule (Colace Capsule) (05/01/21 09:00) Docusate Sodium Capsule (Colace Capsule) (05/01/21 06:45) Bisacodyl Suppository (Dulcolax Supposit (05/01/21 06:45) Lactulose Oral Solution (Enulose Oral So (05/01/21 06:45) Na Phos/Na Biphos Enema (Fleet Enema Christiano (05/01/21 06:45) Guaifenesin/Codeine Syrup (Robitussin Ac (05/01/21 06:45) Loperamide Tablet (Imodium Tablet) (05/01/21 06:45) Melatonin Tablet (Melatonin Tablet) (05/01/21 06:45) Polyethylene Glycol Powder Pkt (Miralax (05/01/21 09:00) Ondansetron Oral Dissolve Tab (Zofran (05/01/21 06:45) Senna S Tablet (Senokot S Tablet) (05/01/21 21:00) Therapeutic Activity Goals: .PRN (05/01/21 06:42) Nursing Communication (Order) (05/01/21 ) Naloxone Injection (Narcan Injection) (05/01/21 06:45) Initiate Admission Nursing Pro .admission (05/01/21 06:42) Acetaminophen Tablet/Caplet (Tylenol T (05/01/21 06:45) Hydrocodone/Apap 5/325 Tablet (Lortab 5 (05/01/21 06:45) Admission Arrival Bed Request (05/01/21 12:59) Polyethylene Glycol Powder Pkt (Miralax (05/01/21 21:00) Docusate Sodium Capsule (Colace Capsule) (05/01/21 21:00) Amlodipine Tablet (Norvasc Tablet) (05/02/21 09:00) Aspirin Enteric Coated Tablet (Ecotrin T (05/02/21 09:00) Atorvastatin Tablet (Lipitor Tablet) (05/01/21 21:00) Clopidogrel Tablet (Plavix Tablet) (05/02/21 09:00) Sulfamethoxazole/Trimet Ds Tab (Bactrim (05/01/21 18:00) (Nf) L. Acidophilus/L.Bulgaricus (Lactob (05/02/21 09:00) (Nf) Omega3,5,6,7,9 No.1/[place] Oil (Com (05/02/21 09:00) Dys2 Mechanically Altered (05/01/21 Dinner) Patient Visit (05/01/21 ) Pt Eval Moderate Complexity (05/01/21 ) Functional Activities, Ea 15 (05/01/21 ) Lactobacillus Acidophilus Cap (Acidophil (05/02/21 09:00) [place] 3 Capsule (Fish Oil Capsule) (05/02/21 09:00) Urinalysis (05/01/21 17:53) Tamsulosin Capsule (Flomax Capsule) (05/01/21 18:00) Consult Urology (05/01/21 15:43) Calcium Carbonate Chew Tablet (Antacid C (05/01/21 20:00) Antacid Suspension (Mylanta Suspension (05/01/21 18:00) Pantoprazole Tablet (Protonix Tablet) (05/01/21 21:00) Sucralfate Tablet (Carafate Tablet) (05/01/21 21:00) Urine Culture (05/01/21 17:55) Consent-Obtain Consent For (05/02/21 09:04) Preop Checklist (05/02/21 09:04) Nursing Communication (Order) (05/02/21 10:35) Nursing Communication (Order) DAILY (05/02/21 10:42) Patient Visit (05/02/21 ) Speech Sound Lang Comp (05/02/21 ) Treat. Speech/Lang/Voice (05/02/21 ) Patient Visit (05/02/21 ) Dysphagia Evaluation Std (05/02/21 ) Dysphagia Therapy (05/02/21 ) Enlive Variety (05/02/21 14:00) Patient Visit (05/02/21 ) Exercise Therap, Ea 15 Min (05/02/21 ) Functional Activities, Ea 15 (05/02/21 ) Rehab Nursing Orders: Ongoing Assess. of Cognitive Status, Ongoing Assess. of Function Status, Bladder Management, Bladder Scan, Bladder Training, Bowel Management, Bowel Training, Disease Management & Educaiton, DVT Prophylaxis, Fall Prevention, Fluid/Electrolyte/Nutrition Mgmt, Infection Prevention, Medication Management & Education, Management of Risks & Complications, Management of Skin Intergrity, Nutrition Management, Pain Management, Patient/Family Support, Safety Management Intensity of Therapy to be met Patient to be seen: Min.3h per day/5 of 7d PT IPOC Problem List: Activity Tolerance, Functional Strength, Safety, Balance, Gait, Transfer, Bed Mobility, ROM Treatment Plan: Continue Plan of Care Bed Mobility, Education, Functional Activity Jose Carlos, Functional Strength, Group Therapy, Gait, Safety, Therapeutic Exercise, Transfers Treatment Duration: May 22, 2021 Frequency: At least 5 of 7 days/Wk (IRF) Estimated Hrs Per Day: 1.5 hours per day OT IPOC Problems: Decreased Activ Tolerance, Decreased Safety Aware, Decreased UE Strength, Impaired Bed Mobility, Impaired Coordination, Impaired Funct Balance, Impaired I ADL's, Impaired Self-Care Skills, Visual-Perceptual Deficit OT Treatment, Training and Edu: Yes Plan of Care: ADL Retraining, Functional Mobility, Group Exercise/Act as Ind, UE Funct Exercise/Act Treatment Duration: Jun 01, 2021 Frequency: At least 5 of 7 days/Wk (IRF) Estimated Hrs Per Day: 1.5 hours per day [facility] Speech Therapy Treatment Plan: Continue Plan of Care Treatment Duration: May 02, 2021 Frequency: 3 times per week Estimated Hrs Per Day: .5 hour per day Electronic Organ Mechanic/Case Mgmt Electronic Organ Mechanic/Case Managemen: Discharge Planning Dietitian/Manager Shift Dietitian/Manager Shift to monitor nutritional status and make changes and/or recommendations as needed and work with speech pathology on dietary upgrades as the occur. Physician IP Medical Issues being managed closely and that require the 24 hour availability of a physician: Recent catastrophic stroke will require close monitoring of blood pressure along with urinary retention management with urology along with close monitoring due to high risk for decompensation Medical Issues: Bowel/Bladder Function, DVT Prophylaxis, Falls Precautions, Fluid/Electrolyte/Nutrition Balance, Infection Protection, Pain Management, Swallowing Precautions Brief Synthesis of Preadmission Screen, Post-Admission Evaluation, and Therapy Evaluations: PT and OT will focus on regaining left-sided strength from stroke and using assistive devices to increase independence in ADLs. In order to return to independent living aggressive regimen will be required. Medical Prognosis: Fair Anticipated Length of Stay: 14 days GUILLERMO CABELLO DO May 02, 2021 06:26
[2021-05-02 06:37] LABS: BASOPHILS # (AUTO) 0.1 10^3/uL (0.0-0.1); BASOPHILS % (AUTO) 1 % (0-10); EOSINOPHILS # (AUTO) 0.3 10^3/uL (0.0-0.3); EOSINOPHILS % (AUTO) 4 % (0-10); HEMATOCRIT 35 % (40-54); HEMOGLOBIN 10.9 g/dL (13.3-17.7); LYMPHOCYTES # (AUTO) 1.5 10^3/uL (1.0-4.0); LYMPHOCYTES % (AUTO) 20 % (12-44); MEAN CORPUSCULAR HEMOGLOBIN 29 pg (25-34); MEAN CORPUSCULAR HGB CONC 32 g/dL (32-36); MEAN CORPUSCULAR VOLUME 93 fL (80-99); MONOCYTES # (AUTO) 0.7 10^3/uL (0.0-1.0); MONOCYTES % (AUTO) 9 % (0-12); NEUTROPHILS % (AUTO) 66 % (42-75); PLATELET COUNT 208 10^3/uL (130-400); WHITE BLOOD COUNT 7.6 10^3/uL (4.3-11.0)
[2021-05-02 06:48] LABS: ALBUMIN 3.3 GM/DL (3.2-4.5); POTASSIUM 3.6 MMOL/L (3.6-5.0)
[2021-05-02] MEDS: SUCRALFATE 1 GM (CARAFATE) TAB PO SCH ×4 (06:48→20:39)
[2021-05-02 06:49] LABS: CALCIUM 8.5 MG/DL (8.5-10.1)
[2021-05-02 06:51] LABS: TOTAL PROTEIN 6.5 GM/DL (6.4-8.2)
[2021-05-02 06:52] LABS: BILIRUBIN,TOTAL 0.6 MG/DL (0.1-1.0)
[2021-05-02 06:54] LABS: CREATININE SERUM 0.94 MG/DL (0.60-1.30)
[2021-05-02 08:00] VITALS: BP 135/62
--- NOTE | 2021-05-02 08:53 | Physical Therapy Daily Note ---
PT Daily Note-Current Subjective Patient in bed pre tx, agrees to PT, has no complaints of pain, states he is very tired. Appearance Patient in recliner post tx with nurse call, phone, tray, all needs met. Mental Status Patient Orientation: Person, Place, Situation Transfers SCALE: Activities may be completed with or without assistive devices. 4-Dhpzmubdup-tbphkwb completes the activity by him/herself with no assistance from a helper. 5-Set-up or Clean-up Assistance-helper sets up or cleans up; patient completes activity. [place] assists only prior to or following the activity. 4-Supervision or Touching Assistance-helper provides verbal cues and/or touching/steadying and/or contact guard assistance as patient completes activity. Assistance may be provided throughout the activity or intermittently. 3-Partial/Moderate Assistance-helper does LESS THAN HALF the effort. [place] lift s, holds or supports trunk or limbs, but provides less than half the effort. 2-Substantial/Maximal Assistance-helper does MORE THAN HALF the effort. [place] lifts or holds trunk or limbs and provides more than half the effort. 8-Llgpmqijb-ymnbqv does ALL the effort. Patient does none of the effort to complete the activity. Or, the assistance of 2 or more helpers is required for the patient to complete the activity. If activity was not attempted, code reason: 7-Patient Refused. 9-Not Applicable-not attempted and the patient did not perform the activity before the current illness, exacerbation or injury. 10-Not Attempted due to Environmental Limitations-(lack of equipment, weather restraints, etc.). 88-Not Attempted due to Medical Conditions or Safety Concerns. Roll Left & Right (QC): 3 Lying to Sitting/Side of Bed(Q: 3 Sit to Stand (QC): 3 Chair/Vko-ud-Wbjqk Xfer(QC): 3 Gait Training Distance: 20'x3 Walk 10 feet (QC): 3 Gait Persons Needed: 1 Gait Assistive Device: Walker Juan Jose Patient ambulated 20' x3 with a hemiwalker with mod assist for balance, cues for step sequence Wheelchair Training Does the Pt Use a Wheelchair?: Yes Wheel 50 ft with 2 turns (QC): 3 Wheel 150 ft (QC): 3 Type of Wheelchair: Manual 150'x2 Exercises NuStep Minutes: 15 NuStep Workload: 5 Treatments bed mobility and transfers, ambulation, WC mobility, functional strengthening Assessment Current Status: Fair Progress Patient has a lot of trouble with his left neglect, needs constant cues to look to his left and directions on how to get around obstacles. PT Short Term Goals Short Term Goals Time Frame: May 08, 2021 Roll Left & Right: 4 Sit to lyin (Cynthia) Lying to sitting on side of be: 3 (Cynthia) Sit to stand: 3 (Cynthia) Chair/uba-ds-ljzqf transfer: 3 (Cynthia) Walk 10 feet: 3 (Cynthia) Walk 50 feet with two turns: 3 (Cynthia) PT Assisted Goals Assisted Goals PT Assisted Goals Time Frame: May 22, 2021 Roll Left & Right (QC): 6 Sit to Lying (QC): 4 (SBA) Lying-Sitting on Side/Bed(QC): 4 (SBA) Sit to Stand (QC): 4 (SBA) Chair/Wzq-gz-Wamex Xfer(QC): 4 (SBA) Toilet Transfer (QC): 4 (SBA) Car Transfer (QC): 4 (SBA) Does the Patient Walk: Yes Walk 10 feet (QC): 4 (CGA) Walk 50ft with 2 Turns (QC): 4 (CGA) Walk 150 ft (QC): 88 Walking 10ft on Uneven Surface: 4 (CGA) 1 Step (curb) (QC): 4 (CGA) 4 Steps (QC): 4 (CGA) 12 Steps (QC): 88 Picking up an Object (QC): 88 Wheel 50 feet with 2 turns (QC: 5 Wheel 150 feet: 5 PT Plan Problem List Problem List: Activity Tolerance, Functional Strength, Safety, Balance, Gait, Transfer, Bed Mobility, ROM Treatment/Plan Treatment Plan: Continue Plan of Care Treatment Plan: Bed Mobility, Education, Functional Activity Jose Carlos, Functional Strength, Group Therapy, Gait, Safety, Therapeutic Exercise, Transfers Treatment Duration: May 22, 2021 Frequency: At least 5 of 7 days/Wk (IRF) Estimated Hrs Per Day: 1.5 hours per day Patient and/or Family Agrees t: Yes Safety Risks/Education Patient Education: Gait Training, Transfer Techniques, Correct Positioning, W/C Management, Safety Issues Teaching Recipient: Patient Teaching Methods: Demonstration, Discussion Response to Teaching: Reinforcement Needed Time/GCodes Time In: 0800 Time Out: 0900 Total Billed Treatment Time: 60 Total Billed Treatment 1 visit EX 15' FA 45' FELIZ GRIMM PT May 02, 2021 08:53
[2021-05-02] MEDS ORDERED: [UNRECOGNIZED DRUG - OTHER] PO SCH (09:00)
[2021-05-02] MEDS: polyethylene glycoL POWDER 17 GM (MIRALAX) PACK PO SCH ×2 (09:00→21:00)
[2021-05-02] MEDS: OMEGA 3 (FISH OIL) 1000 MG CAP PO SCH (09:26)
[2021-05-02] MEDS: SENNA W/DOCUSATE (SENOKOT S) TABLET PO SCH ×2 (09:26→21:00)
[2021-05-02] MEDS: DOCUSATE SODIUM 100 MG (COLACE) CAP PO SCH ×2 (09:26→21:00)
[2021-05-02] MEDS: ASPIRIN E.C. 81 MG (ECOTRIN) TAB PO SCH (09:26)
[2021-05-02] MEDS: TRIM/SULFAMETH 160/800 (SEPTRA DS) TAB PO SCH ×2 (09:26→18:17)
[2021-05-02] MEDS: PANTOPRAZOLE 40 MG (PROTONIX) TAB PO SCH ×2 (09:26→20:39)
[2021-05-02] MEDS: LACTOBACILLUS ACIDOPHILUS (PROBIOTIC) CAPSULE PO SCH (09:26)
[2021-05-02] MEDS: CLOPIDOGREL 75 MG (PLAVIX) TABLET PO SCH (09:26)
[2021-05-02] MEDS: amLODIPine 5 MG (NORVASC) TAB PO SCH (09:26)
--- NOTE | 2021-05-02 09:48 | CONSULTATION REPORT ---
DATE OF SERVICE: ATTENDING PHYSICIAN: Dr. Garcia. SUMMARY: After reviewing the patient's records, interviewing him, this is an 80-year-old white man admitted after sustaining a stroke after a carotid endarterectomy in [place], admitted to the rehabilitation unit, has been recovering fairly decently, and had been found to have urinary retention, has a Samano catheter in and has a history of voiding problem according to him, has never seen a urologist before. He was put on Flomax 0.4 mg early April at [place], which he tolerated well. I reviewed his history and physical. IMPRESSION: Urinary retention, obstructive and/or neurogenic. PLAN: Flexible bedside local cystoscopy, probably either tomorrow or after tomorrow at bedside and physical exam at that time. The patient was doing his physical therapy. The plan was fully explained to the patient. Job ID: [id number] DocumentID: [id number] Dictated Date: 05/02/2021 09:04:34 Glass Handler Date: 05/02/2021 09:48:14 Dictated By: QING WAN MD
--- NOTE | 2021-05-02 10:54 | Occupational Ther Daily Note ---
OT Current Status-Daily Note Subjective Pt alert, sitting in recliner. Pt c/o fatigue today, was not able to sleep last night. Pt does agrees to therapy. No c/o pain at this time. Mental Status/Objective Patient Orientation: Person, Place, Time, Situation ADL-Treatment Pt declines bathing, dressing. Does agree to complete oral care. Pt able to complete oral care by self. Depth perception and multiple visual field cuts noted, OT to complete visual motor test. Pt has difficulty with turning head to left when scanning due to incision on R neck. Pt takes increased time to complete all tasks due to fatigue and need for multiple recovery breaks. Therapy Code Descriptions/Definitions Functional [place] Measure: 0=Not Assessed/NA 4=Minimal Assistance 1=Total Assistance 5=Supervision or Setup 2=Maximal Assistance 6=Modified [place] 3=Moderate Assistance 7=Complete IndependenceSCALE: Activities may be completed with or without assistive devices. 0-Scvgxnjcvq-cssibam completes the activity by him/herself with no assistance from a helper. 5-Set-up or Clean-up Assistance-helper sets up or cleans up; patient completes activity. [place] assists only prior to or following the activity. 4-Supervision or Touching Assistance-helper provides verbal cues and/or touching/steadying and/or contact guard assistance as patient completes activity. Assistance may be provided throughout the activity or intermittently. 3-Partial/Moderate Assistance-helper does LESS THAN HALF the effort. [place] lifts, holds or supports trunk or limbs, but provides less than half the effort. 2-Substantial/Maximal Assistance-helper does MORE THAN HALF the effort. [place] lifts or holds trunk or limbs and provides more than half the effort. 6-Kdrqyxcbu-qnpuni does ALL the effort. Patient does none of the effort to complete the activity. Or, the assistance of 2 or more helpers is required for the patient to complete the activity. If activity was not attempted, code reason: 7-Patient Refused. 9-Not Applicable-not attempted and the patient did not perform the activity before the current illness, exacerbation or injury. 10-Not Attempted due to Environmental Limitations-(lack of equipment, weather restraints, etc.). 88-Not Attempted due to Medical Conditions or Safety Concerns. Oral Hygiene (QC): 6 Other Treatment Pt has L shldr, bicep, tricep, finger flex and supination movement, trace movement in wrist flex/ext and finger ext. Pt was CGA to min A for safety during transfers to R side. Exercises with gravity eliminated completed for L UE to increase correct movements due to compensatory patterns. After therapy, pt lying in bed with call light/phone in reach. All needs met in room. OT Short Term Goals Short Term Goals Time Frame: May 11, 2021 Shower/bathe self: 3 Upper body dressin Lower body dressin Putting on/taking off footwear: 3 OT Penitentiary Goals Penitentiary Goals Time Frame: Jun 01, 2021 Eating (QC): 5 Oral Hygiene (QC): 5 Toileting Hygiene (QC): 4 Shower/Bathe Self (QC): 4 Upper Body Dressing (QC): 5 Lower Body Dressing (QC): 4 On/Off Footwear (QC): 4 Additional Goals: 1-Demonstrate ADL Tasks, 2-Verbalize Understanding, 3- ImproveStrength/Jose Carlos 1=Demonstrate adherence to instructed precautions during ADL tasks. 2=Patient will verbalize/demonstrate understanding of assistive devices/modifications for ADL. 3=Patient will improve strength/tolerance for activity to enable patient to perform ADL's. OT Education/Plan Problem List/Assessment Assessment: Decreased Activ Tolerance, Decreased Safety Aware, Decreased UE Strength, Impaired Coordination, Impaired Funct Balance, Impaired Self-Care Skills, Restricted Funct UE ROM, Visual-Perceptual Deficit Discharge Recommendations Plan/Recommendations: Continue POC Treatment Plan/Plan of Care Patient would benefit from OT for education, treatment and training to promote independence in ADL's, mobility, safety and/or upper extremity function for ADL's. Plan of Care: ADL Retraining, Functional Mobility, Group Exercise/Act as Ind, UE Funct Exercise/Act Treatment Duration: Jun 01, 2021 Frequency: At least 5 of 7 days/Wk (IRF) Estimated Hrs Per Day: 1.5 hours per day Agreement: Yes Rehab Potential: Fair Time/GCodes Start Time: 09:00 Stop Time: 10:15 Total Time Billed (hr/min): 75 Billed Treatment Time 1 visit-ADL 2 (30 min) NM 3 (45 min) AAKASH HODGES May 02, 2021 10:54
--- NOTE | 2021-05-02 11:53 | Physical Therapy Daily Note ---
PT Daily Note-Current Subjective Patient in bed pre tx, agrees to PT, has no complaints of pain. Appearance Patient in bed post tx with nurse call, phone, tray, all needs met. Mental Status Patient Orientation: Person, Place, Situation Transfers SCALE: Activities may be completed with or without assistive devices. 1-Wjexlzlwtm-rwgmjwq completes the activity by him/herself with no assistance from a helper. 5-Set-up or Clean-up Assistance-helper sets up or cleans up; patient completes activity. [place] assists only prior to or following the activity. 4-Supervision or Touching Assistance-helper provides verbal cues and/or touching/steadying and/or contact guard assistance as patient completes activity. Assistance may be provided throughout the activity or intermittently. 3-Partial/Moderate Assistance-helper does LESS THAN HALF the effort. [place] lifts, holds or supports trunk or limbs, but provides less than half the effort. 2-Substantial/Maximal Assistance-helper does MORE THAN HALF the effort. [place] lifts or holds trunk or limbs and provides more than half the effort. 4-Iqdordkmv-pjplel does ALL the effort. Patient does none of the effort to complete the activity. Or, the assistance of 2 or more helpers is required for the patient to complete the activity. If activity was not attempted, code reason: 7-Patient Refused. 9-Not Applicable-not attempted and the patient did not perform the activity before the current illness, exacerbation or injury. 10-Not Attempted due to Environmental Limitations-(lack of equipment, weather restraints, etc.). 88-Not Attempted due to Medical Conditions or Safety Concerns. Exercises Supine Ex: Bridging, Ankle pumps, Quad Set, Glut sets, Heel Slides, Short Arc Quads, Straight leg raise, Hip abd/add Supine Reps: 20 Treatments LE strengthening Assessment Current Status: Fair Progress improving strength in LLE PT Short Term Goals Short Term Goals Time Frame: May 08, 2021 Roll Left & Right: 4 Sit to lyin (Cynthia) Lying to sitting on side of be: 3 (Cynthia) Sit to stand: 3 (Cynthia) Chair/ydd-jh-xobao transfer: 3 (Cynthia) Walk 10 feet: 3 (Cynthia) Walk 50 feet with two turns: 3 (Cynthia) PT Detention Goals Media Senior Recruiter Goals PT Media Senior Recruiter Goals Time Frame: May 22, 2021 Roll Left & Right (QC): 6 Sit to Lying (QC): 4 (SBA) Lying-Sitting on Side/Bed(QC): 4 (SBA) Sit to Stand (QC): 4 (SBA) Chair/Qia-oj-Supna Xfer(QC): 4 (SBA) Toilet Transfer (QC): 4 (SBA) Car Transfer (QC): 4 (SBA) Does the Patient Walk: Yes Walk 10 feet (QC): 4 (CGA) Walk 50ft with 2 Turns (QC): 4 (CGA) Walk 150 ft (QC): 88 Walking 10ft on Uneven Surface: 4 (CGA) 1 Step (curb) (QC): 4 (CGA) 4 Steps (QC): 4 (CGA) 12 Steps (QC): 88 Picking up an Object (QC): 88 Wheel 50 feet with 2 turns (QC: 5 Wheel 150 feet: 5 PT Plan Problem List Problem List: Activity Tolerance, Functional Strength, Safety, Balance, Gait, Transfer, Bed Mobility, ROM Treatment/Plan Treatment Plan: Continue Plan of Care Treatment Plan: Bed Mobility, Education, Functional Activity Jose Carlos, Functional Strength, Group Therapy, Gait, Safety, Therapeutic Exercise, Transfers Treatment Duration: May 22, 2021 Frequency: At least 5 of 7 days/Wk (IRF) Estimated Hrs Per Day: 1.5 hours per day Patient and/or Family Agrees t: Yes Safety Risks/Education Patient Education: Correct Positioning, Safety Issues Teaching Recipient: Patient Teaching Methods: Demonstration, Discussion Response to Teaching: Reinforcement Needed Time/GCodes Time In: 1135 Time Out: 1150 Total Billed Treatment Time: 15 Total Billed Treatment 1 visit EX [place]' FELIZ GRIMM PT May 02, 2021 11:53
[2021-05-02] MEDS ORDERED: CALC-250 PO (15:10)
[2021-05-02] MEDS ORDERED: ZINC10LO4 PO (15:10)
[2021-05-02] MEDS ORDERED: GARL500C2 PO (15:10)
--- NOTE | 2021-05-02 15:29 | ST Cognitive Linguistic Eval ---
Speech Evaluation-General Medical Diagnosis CVA Onset Date: Apr 27, 2021 Therapy Diagnosis Therapy Diagnosis: Cognitive-communication, Oropharyngeal Dysphagia Precautions Precautions: Aspiration Precautions/Isolations: Aspiration, Fall Prevention, Standard Precautions Referral Referring Physician: Dr. Garcia Medical History NEAL, HLP, TIA x3, CVAx2, Hiatal Hernia, Nephrolithiasis, Urinary Retention Current History CVA Reviewed History: Yes Social History Home: Single Level Current Living Status: Spouse Speech PLF-Current Status Prior Level of Function Patient lived in his own home with his where he was independent for his daily needs. Subjective Patient was pleasant and cooperative with the cognitive assessment and dysphagia evaluation. Language Eval: Auditory Comprehends Simple Yes/No Ques: Functional Indent/Objects Multiple Fisher: Functional Ident/Pics in Multiple Fisher: Functional Follows 1-Step Commands: Functional Follows Complex Directions: Functional Follows General Conversations: Functional Language Eval: Verbal Language Completes Spontaneous Greeting: Functional Produces Auto, Serial Info: Functional Imitates Simple Words/Phrases: Functional Word Finding: Functional Requests Basic Needs: Functional States Basic Personal Info: Functional Expresses Complex Ideas: Functional Objective Cognitive Domain Attention: WNL Memory: WNL Problem Solving: Functional Executive Functions: WNL Visuospatial Skills: WNL Composite Severity Rating: WNL Objective Formal/Standardized Tests [facility] Status ([facility]), Bedside Dysphagia Evaluation Results 27/30, within normal range of function for cognitive function, Mild oropharyngeal dysphagia currently on Dysphagia II diet with thin liquids Oral Motor/Speech Production Within Normal Limits Impression Patient is a very pleasant 80 y/o male who was admitted to the ARU from [facility] in [place]. 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 Patient was given the SLUMS at bedside with a score of 27/30 obtained. This score does not indicate a need for cognitive therapy. The patient also completed a Bedside Dysphagia Evaluation which indicates Dysphagia II diet level with thin liquids continues to be the appropriate diet level for least restrictive intake. The patient and nursing report he is having the most difficulty with uncoated medications which "get stuck". Patient would benefit from dysphagia therapy for compensatory strategy training and modifications as needed. Patient's diet level will be an ongoing assessment. Speech Patient Assess Expression of Ideas/Wants: Expression (4) Understanding Verbal Content: Understands (4) Brief Interview-Mental Status: Yes Repetition of Three Words: Three (3) Temporal Orientation: Year: Correct (3) Temporal Orientation: Month: Accurate within 5 days(2) Temporal Orientation: Day: Correct (1) Recall : Wear to say "Sock": Yes, no cue required (2) Recall : Color: Yes, after cueing (1) Recall : Bed: Yes, no cue required (2) Memory/Recall Ability: Current season, Location of own room, That he or she is in a hsp/hsp unit Speech Short Term Goals Short Term Goals Short Term Goals 1) Patient will tolerate least restrictive diet level without s/s of aspiration at 90% or greater. 2) Patient will utilize compensatory strategies for safe oral intake at 90% or greater with minimal cues. Speech Mcc Goals Oil Well Shooter Goals Patient will maintain adequate nutrition/hydration via safe effective swallow function. Speech-Plan Patient/Family Goals Patient/Family Goals: Patient plans on returning to his home where he lives with his . Treatment Plan Speech Therapy Treatment Plan: Continue Plan of Care Treatment Duration: May 18, 2021 Frequency: 4 times per week (Patient will receive skilled ST 4-5x per week) Estimated Hrs Per Day: .5 hour per day Rehab Potential: Fair Barriers to Learning: Patient's recent CVA, left side neglect, dysphagia Pt/Family Agrees to Plan: Yes Safety Risks/Education Teaching Recipient: Patient Teaching Methods: Discussion Response to Teaching: Verbalize Understanding Education Topics Provided: Safety of oral intake, diet levels Time Speech Therapy Time In: 15:00 Speech Therapy Time Out: 15:30 Total Billed Time: 30 Billed Treatment Time 1, SPSNDCOMP, SLTS, DYSEVS, DYST No PITO OSBORN May 02, 2021 15:29
[2021-05-02] MEDS: TAMSULOSIN 0.4 MG (FLOMAX) CAP PO SCH (18:17)
[2021-05-02 20:00] VITALS: BP 121/65
[2021-05-02] MEDS: HYDROcodone/APAP 5 MG/325 MG (LORTAB) TAB PO PRN (20:39)
[2021-05-02] MEDS: MELATONIN 3 MG TABLET PO PRN (20:40)
[2021-05-03] MEDS: CALCIUM CARBONATE 500 MG (TUMS) TAB.CHEW PO SCH ×7 (01:17→20:52)
[2021-05-03] MEDS: SUCRALFATE 1 GM (CARAFATE) TAB PO SCH ×4 (06:25→20:30)
[2021-05-03 07:43] VITALS: BP 138/65
[2021-05-03] MEDS: ONDANSETRON 4 MG (ZOFRAN) ORAL DISSOLVE TAB PO PRN (08:14)
--- NOTE | 2021-05-03 08:50 | Occupational Ther Daily Note ---
OT Current Status-Daily Note Subjective Pt alert, lying in bed. Pt agrees to therapy. During session, pt c/o dizziness and nausea this was reported to nrsg. BP in normal range. Nrsg brought Zofran for nausea. Mental Status/Objective Patient Orientation: Person, Place, Time, Situation ADL-Treatment Pt did agree to shower initially. Pt then became dizzy and nauseous, sponge bath was completed. Min A for supine to EOB. Min A to SPT towards L side. CGA to transfer to R side. Pt is demonstrating gross movement throughout L UE. Continues to demonstrate significant L visual field cut in multiple quadrants. Toilet transfer min A using w/c and grabbars. Assist to manipulate clothing and cleanse self, max A. Pt able to bathe upper body, patrick area, upper legs then assist with all other areas. Pt demonstrated ability to cross legs in a figure 4 technique to complete lower body dressing, max A due to visual field cut and decrease awareness of L side. Doffs shirt with verbal cues using one handed technique. Dons shirt with mod A using one handed technique. Pt then transferred back to bed due to continued dizziness. Therapy Code Descriptions/Definitions Functional [place] Measure: 0=Not Assessed/NA 4=Minimal Assistance 1=Total Assistance 5=Supervision or Setup 2=Maximal Assistance 6=Modified [place] 3=Moderate Assistance 7=Complete IndependenceSCALE: Activities may be completed with or without assistive devices. 4-Zjorbakplt-dbyuorj completes the activity by him/herself with no assistance from a helper. 5-Set-up or Clean-up Assistance-helper sets up or cleans up; patient completes activity. [place] assists only prior to or following the activity. 4-Supervision or Touching Assistance-helper provides verbal cues and/or touching/steadying and/or contact guard assistance as patient completes activity. Assistance may be provided throughout the activity or intermittently. 3-Partial/Moderate Assistance-helper does LESS THAN HALF the effort. [place] lifts, holds or supports trunk or limbs, but provides less than half the effort. 2-Substantial/Maximal Assistance-helper does MORE THAN HALF the effort. [place] lifts or holds trunk or limbs and provides more than half the effort. 9-Cabgxnsis-lguqst does ALL the effort. Patient does none of the effort to complete the activity. Or, the assistance of 2 or more helpers is required for the patient to complete the activity. If activity was not attempted, code reason: 7-Patient Refused. 9-Not Applicable-not attempted and the patient did not perform the activity before the current illness, exacerbation or injury. 10-Not Attempted due to Environmental Limitations-(lack of equipment, weather restraints, etc.). 88-Not Attempted due to Medical Conditions or Safety Concerns. Eating (QC): 4 (Supervision and set up due to visual field cut, pt is not scanning toward L side and requires reminders to find food and utensils on L side.) Bathing Location: L Arm, L Upper Leg, R Upper Leg, Chest, Abdomen, Perineal Area Shower/Bathe Self (QC): 2 Upper Body Dressing (QC): 3 Lower Body Dressing (QC): 2 On/Off Footwear: 2 Toileting Hygiene (QC): 2 Toilet Transfer (QC): 3 Other Treatment Discussed with nrsg ordering topical pain ointment for L shldr. Massage and stretch to L shldr to decrease pain. After therapy, pt lying in bed with call light/phone in reach. All needs met in room. OT Short Term Goals Short Term Goals Time Frame: May 11, 2021 Shower/bathe self: 3 Upper body dressin Lower body dressin Putting on/taking off footwear: 3 OT Housing Case Manager Goals Housing Case Manager Goals Time Frame: Jun 01, 2021 Eating (QC): 5 Oral Hygiene (QC): 5 Toileting Hygiene (QC): 4 Shower/Bathe Self (QC): 4 Upper Body Dressing (QC): 5 Lower Body Dressing (QC): 4 On/Off Footwear (QC): 4 Additional Goals: 1-Demonstrate ADL Tasks, 2-Verbalize Understanding, 3-ImproveStrength/Jose Carlos 1=Demonstrate adherence to instructed precautions during ADL tasks. 2=Patient will verbalize/demonstrate understanding of assistive devices/modifications for ADL. 3=Patient will improve strength/tolerance for activity to enable patient to perform ADL's. OT Education/Plan Problem List/Assessment Assessment: Decreased Activ Tolerance, Decreased Safety Aware, Decreased UE Strength, Impaired Bed Mobility, Impaired Coordination, Impaired Funct Balance, Impaired I ADL's, Impaired Self-Care Skills, Restricted Funct UE ROM, Visual- Perceptual Deficit Discharge Recommendations Plan/Recommendations: Continue POC Treatment Plan/Plan of Care Patient would benefit from OT for education, treatment and training to promote independence in ADL's, mobility, safety and/or upper extremity function for ADL's. Plan of Care: ADL Retraining, Functional Mobility, Group Exercise/Act as Ind, UE Funct Exercise/Act Treatment Duration: Jun 01, 2021 Frequency: At least 5 of 7 days/Wk (IRF) Estimated Hrs Per Day: 1.5 hours per day Agreement: Yes Rehab Potential: Fair Time/GCodes Start Time: 07:30 Stop Time: 08:45 Total Time Billed (hr/min): 75 Billed Treatment Time 1 visit-ADL 4 (60 min) NM 1 (15 min) AAKASH HODGES May 03, 2021 08:50
[2021-05-03] MEDS: polyethylene glycoL POWDER 17 GM (MIRALAX) PACK PO SCH ×2 (09:00→20:20)
[2021-05-03] MEDS: amLODIPine 5 MG (NORVASC) TAB PO SCH (09:52)
[2021-05-03] MEDS: LACTOBACILLUS ACIDOPHILUS (PROBIOTIC) CAPSULE PO SCH (09:52)
[2021-05-03] MEDS: DOCUSATE SODIUM 100 MG (COLACE) CAP PO SCH ×2 (09:52→20:30)
[2021-05-03] MEDS: PANTOPRAZOLE 40 MG (PROTONIX) TAB PO SCH ×2 (09:52→20:30)
[2021-05-03] MEDS: CLOPIDOGREL 75 MG (PLAVIX) TABLET PO SCH (09:52)
[2021-05-03] MEDS: OMEGA 3 (FISH OIL) 1000 MG CAP PO SCH (09:52)
[2021-05-03] MEDS: ASPIRIN E.C. 81 MG (ECOTRIN) TAB PO SCH (09:52)
[2021-05-03] MEDS: SENNA W/DOCUSATE (SENOKOT S) TABLET PO SCH ×2 (09:52→20:29)
[2021-05-03] MEDS: TRIM/SULFAMETH 160/800 (SEPTRA DS) TAB PO SCH (09:52)
--- NOTE | 2021-05-03 10:55 | Physical Therapy Daily Note ---
PT Daily Note-Current Subjective Patient in bed pre tx, agrees to PT, has some minor pain in left shoulder, states he is very tired. Appearance Patient in recliner post tx with nurse call, phone, tray, legs elevated. Mental Status Patient Orientation: Person, Place, Situation Attachments: Samano Catheter Transfers SCALE: Activities may be completed with or without assistive devices. 3-Jvcpodehcp-ykqitcj completes the activity by him/herself with no assistance from a helper. 5-Set-up or Clean-up Assistance-helper sets up or cleans up; patient completes activity. [place] assists only prior to or following the activity. 4-Supervision or Touching Assistance-helper provides verbal cues and/or touching/steadying and/or contact guard assistance as patient completes activity. Assistance may be provided throughout the activity or intermittently. 3-Partial/Moderate Assistance-helper does LESS THAN HALF the effort. [place] lifts, holds or supports trunk or limbs, but provides less than half the effort. 2-Substantial/Maximal Assistance-helper does MORE THAN HALF the effort. [place] lifts or holds trunk or limbs and provides more than half the effort. 7-Kstylmahx-xivkbx does ALL the effort. Patient does none of the effort to complete the activity. Or, the assistance of 2 or more helpers is required for the patient to complete the activity. If activity was not attempted, code reason: 7-Patient Refused. 9-Not Applicable-not attempted and the patient did not perform the activity before the current illness, exacerbation or injury. 10-Not Attempted due to Environmental Limitations-(lack of equipment, weather restraints, etc.). 88-Not Attempted due to Medical Conditions or Safety Concerns. Roll Left & Right (QC): 6 Lying to Sitting/Side of Bed(Q: 4 Sit to Stand (QC): 3 Chair/Mpv-pz-Dbirs Xfer(QC): 3 Patient now performs a stand pivot transfer to the left side with min assist and to the right with CGA, cues for hand placement and positioning Gait Training Distance: 20'x3 Walk 10 feet (QC): 3 Gait Persons Needed: 1 Gait Assistive Device: Walker Juan Jose better step through on the left and better balance during ambulation, patient has a bit of a difficult time using the hemiwalker, he may benefit from using a quad cane Wheelchair Training Does the Pt Use a Wheelchair?: Yes Wheel 50 ft with 2 turns (QC): 3 Wheel 150 ft (QC): 3 Type of Wheelchair: Manual 150'x2, min assist for occasional assist around obstacles or through doorways Exercises NuStep Minutes: 15 NuStep Workload: 5 Treatments bed mobility and transfers, ambulation, functional strengthening, WC mobility Assessment Current Status: Fair Progress Patient has a lot of trouble with his left neglect and visual impairment, needs constant cues to look to the left PT Short Term Goals Short Term Goals Time Frame: May 08, 2021 Roll Left & Right: 4 Sit to lyin (Cynthia) Lying to sitting on side of be: 3 (Cynthia) Sit to stand: 3 (Cynthia) Chair/ekb-dg-vlhxj transfer: 3 (Cynthia) Walk 10 feet: 3 (Cynthia) Walk 50 feet with two turns: 3 (Cynthia) PT Custodial Goals Equipment Mechanic Specialist Goals PT Equipment Mechanic Specialist Goals Time Frame: May 22, 2021 Roll Left & Right (QC): 6 Sit to Lying (QC): 4 (SBA) Lying-Sitting on Side/Bed(QC): 4 (SBA) Sit to Stand (QC): 4 (SBA) Chair/Owh-ul-Kyvvd Xfer(QC): 4 (SBA) Toilet Transfer (QC): 4 (SBA) Car Transfer (QC): 4 (SBA) Does the Patient Walk: Yes Walk 10 feet (QC): 4 (CGA) Walk 50ft with 2 Turns (QC): 4 (CGA) Walk 150 ft (QC): 88 Walking 10ft on Uneven Surface: 4 (CGA) 1 Step (curb) (QC): 4 (CGA) 4 Steps (QC): 4 (CGA) 12 Steps (QC): 88 Picking up an Object (QC): 88 Wheel 50 feet with 2 turns (QC: 5 Wheel 150 feet: 5 PT Plan Problem List Problem List: Activity Tolerance, Functional Strength, Safety, Balance, Gait, Transfer, Bed Mobility, ROM Treatment/Plan Treatment Plan: Continue Plan of Care Treatment Plan: Bed Mobility, Education, Functional Activity Jose Carlos, Functional Strength, Group Therapy, Gait, Safety, Therapeutic Exercise, Transfers Treatment Duration: May 22, 2021 Frequency: At least 5 of 7 days/Wk (IRF) Estimated Hrs Per Day: 1.5 hours per day Patient and/or Family Agrees t: Yes Safety Risks/Education Patient Education: Gait Training, Transfer Techniques, Correct Positioning, W/C Management, Safety Issues Teaching Recipient: Patient Teaching Methods: Demonstration, Discussion Response to Teaching: Reinforcement Needed Time/GCodes Time In: 1000 Time Out: 1100 Total Billed Treatment Time: 60 Total Billed Treatment EX 15' FA 45' FELIZ GRIMM PT May 03, 2021 10:55
--- NOTE | 2021-05-03 12:28 | PM&R Progress Note ---
Subjective HPI/CC On Admission Date Seen by Provider: May 03, 2021 Time Seen by Provider: 12:30 Subjective/Events-last exam 05/03/2021: Pt doing pretty well Cystoscope done and now voiding well DC Bactrim since he is having difficulty swallowing GERD issues continue Proton pump inhibitor and Carafate maintained Will have a suppository if bowels have not moved later 05/02/2021: Pt doing pretty well Became tearful a bit today No BM since 04/27 so laxatives given Nausea a bit last night Dr. Valencia saw him and will perform a cystoscopy tomorrow Dysphasia noted Left arm is tingling so hopefully we will regain some function Review of Systems General: Fatigue Neurological: Weakness, Incoordination Objective Exam Vital Signs Vital Signs Date Time Temp Pulse Resp B/P (MAP) Pulse Ox O2 Delivery O2 Flow Rate FiO2 05/03/21 20:45 Room Air 05/03/21 20:00 37.2 90 18 125/60 (81) 92 Capillary Refill : General Appearance: No Apparent Distress, WD/WN, Chronically ill HEENT: PERRL/EOMI, Normal ENT Inspection, Pharynx Normal Neck: Full Range of Motion, Normal Inspection, Non Tender, Supple, Carotid Bruit Respiratory: Chest Non Tender, Lungs Clear, Normal Breath Sounds, No Accessory Muscle Use, No Respiratory Distress Cardiovascular: Regular Rate, Rhythm, No Edema, No Gallop, No JVD, No Murmur, Normal Peripheral Pulses Gastrointestinal: Normal Bowel Sounds, No Organomegaly, No Pulsatile Mass, Non Tender, Soft Back: Normal Inspection, No CVA Tenderness, No Vertebral Tenderness Extremity: Normal Capillary Refill, Normal Inspection, Normal Range of Motion, Non Tender, No Calf Tenderness, No Pedal Edema Neurologic/Psychiatric: Alert, Oriented x3, Normal Mood/Affect, tip mender II-XII Norm as Tested, Abnormal Gait, EOM Palsy (Left), Facial Droop (Left side), Motor Weakness (Left-sided weakness 2/5 upper and lower extremities) Skin: Normal Color, Warm/Dry Lymphatic: No Adenopathy Results/Procedures Lab Patient resulted labs reviewed. FIM Transfers Therapy Code Descriptions/Definitions Functional [place] Measure: 0=Not Assessed/NA 4=Minimal Assistance 1=Total Assistance 5=Supervision or Setup 2=Maximal Assistance 6=Modified [place] 3=Moderate Assistance 7=Complete IndependenceSCALE: Activities may be completed with or without assistive devices. 1-Szrbandont-rceqmfp completes the activity by him/herself with no assistance from a helper. 5-Set-up or Clean-up Assistance-helper sets up or cleans up; patient completes activity. [place] assists only prior to or following the activity. 4-Supervision or Touching Assistance-helper provides verbal cues and/or t ouching/steadying and/or contact guard assistance as patient completes activity. Assistance may be provided throughout the activity or intermittently. 3-Partial/Moderate Assistance-helper does LESS THAN HALF the effort. [place] lifts, holds or supports trunk or limbs, but provides less than half the effort. 2-Substantial/Maximal Assistance-helper does MORE THAN HALF the effort. [place] lifts or holds trunk or limbs and provides more than half the effort. 4-Yvuvlipwg-ridfgm does ALL the effort. Patient does none of the effort to complete the activity. Or, the assistance of 2 or more helpers is required for the patient to complete the activity. If activity was not attempted, code reason: 7-Patient Refused. 9-Not Applicable-not attempted and the patient did not perform the activity before the current illness, exacerbation or injury. 10-Not Attempted due to Environmental Limitations-(lack of equipment, weather restraints, etc.). 88-Not Attempted due to Medical Conditions or Safety Concerns. Roll Left to Right (QC): 6 Sit to Lying (QC): 3 Sit to Stand (QC): 3 Chair/Fwx-cc-Mpirr Xfer(QC): 3 Car Transfer (QC): 3 Gait Training Does the Patient Walk?: Yes Distance: 20'x3 Walk 10 feet (QC): 3 Walk 50 ft with 2 Turns(QC): 88 Walk 150 ft (QC): 88 Walking 10ft/uneven surface-QC: 88 Gait Persons Needed: 1 Gait Assistive Device: Walker Juan Jose Wheelchair Training Does the Pt Use a Wheelchair?: Yes Distance: 400' Wheel 50 ft with 2 turns (QC): 3 Wheel 150 ft (QC): 3 Type of Wheelchair: Manual Stair Training 1 Step (curb) (QC): 88 4 Steps (QC): 88 12 Steps (QC): 88 Balance Picking up an Object (QC): 88 ADL-Treatment Eating (QC): 4 (Supervision and set up due to visual field cut, pt is not scanning toward L side and requires reminders to find food and utensils on L side.) Oral Hygiene (QC): 6 Bathing Location: L Arm, L Upper Leg, R Upper Leg, Chest, Abdomen, Perineal Area Shower/Bathe Self (QC): 2 Upper Body Dressing (QC): 3 Lower Body Dressing (QC): 2 On/Off Footwear (QC): 2 Toileting Hygiene (QC): 2 Toilet Transfer (QC): 3 Assessment/Plan Assessment and Plan Assess & Plan/Chief Complaint Assessment: S/P right carotid endarectomy 04-27-21 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
[2021-05-03] MEDS: DICLOFENAC 1% GEL 100 GM (VOLTAREN) TUBE TOP PRN (12:45)
--- NOTE | 2021-05-03 13:35 | Speech Therapy Daily Note ---
Speech Daily Progress Note Subjective Date Seen by Provider: May 03, 2021 Time Seen by Provider: 00:30 Patient c/o "raw throat" from medications getting stuck in his throat. Objective Patient exhibited safe intake with utilization of chin tuck at 80% with 10% verbal cues. Assessment Assessment Current Status: Good Progress Treatment Plan Continue Plan of Care Speech Short Term Goals Short Term Goals Short Term Goals 1) Patient will tolerate least restrictive diet level without s/s of aspiration at 90% or greater. 2) Patient will utilize compensatory strategies for safe oral intake at 90% or greater with minimal cues. Speech Half-Way Goals Technology Services Manager Goals Patient will maintain adequate nutrition/hydration via safe effective swallow function. Speech-Plan Patient/Family Goals Patient/Family Goals: Patient plans on returning to his home where he lives with his . Treatment Plan Speech Therapy Treatment Plan: Continue Plan of Care Treatment Duration: May 18, 2021 Frequency: 4 times per week (Patient will receive skilled ST 4-5x per week) Estimated Hrs Per Day: .5 hour per day Rehab Potential: Fair Barriers to Learning: Patient's recent CVA with debility Pt/Family Agrees to Plan: Yes Safety Risks/Education Teaching Recipient: Patient Teaching Methods: Demonstration, Discussion Response to Teaching: Verbalize Understanding, Return Demonstration Education Topics Provided: Continued safety strategies for oral intake, especially pills Time Speech Therapy Time In: 11:30 Speech Therapy Time Out: 12:00 Total Billed Time: 30 Billed Treatment Time 1CARIN B[address] ST May 03, 2021 13:35
--- NOTE | 2021-05-03 14:18 | Physical Therapy Daily Note ---
PT Daily Note-Current Subjective Patient agrees to exercise. Transfers SCALE: Activities may be completed with or without assistive devices. 1-Akamopohyl-yldljmw completes the activity by him/herself with no assistance from a helper. 5-Set-up or Clean-up Assistance-helper sets up or cleans up; patient completes activity. [place] assists only prior to or following the activity. 4-Supervision or Touching Assistance-helper provides verbal cues and/or touching/steadying and/or contact guard assistance as patient completes activity. Assistance may be provided throughout the activity or intermittently. 3-Partial/Moderate Assistance-helper does LESS THAN HALF the effort. [place] lifts, holds or supports trunk or limbs, but provides less than half the effort. 2-Substantial/Maximal Assistance-helper does MORE THAN HALF the effort. [place] lifts or holds trunk or limbs and provides more than half the effort. 0-Nrmrtwxss-ifqddl does ALL the effort. Patient does none of the effort to complete the activity. Or, the assistance of 2 or more helpers is required for the patient to complete the activity. If activity was not attempted, code reason: 7-Patient Refused. 9-Not Applicable-not attempted and the patient did not perform the activity before the current illness, exacerbation or injury. 10-Not Attempted due to Environmental Limitations-(lack of equipment, weather restraints, etc.). 88-Not Attempted due to Medical Conditions or Safety Concerns. Exercises Supine Ex: Ankle pumps, Quad Set, Heel Slides, Straight leg raise, Hip abd/add Supine Reps: 15 Assessment Patient tolerated exercises and repositioned independently in bed without difficulty. PT Short Term Goals Short Term Goals Time Frame: May 08, 2021 Roll Left & Right: 4 Sit to lyin (Cynthia) Lying to sitting on side of be: 3 (Cynthia) Sit to stand: 3 (Cynthia) Chair/bcz-th-xqrft transfer: 3 (Cynthia) Walk 10 feet: 3 (Cynthia) Walk 50 feet with two turns: 3 (Cynthia) PT Jail Goals Engine Lathe Operator Goals PT Engine Lathe Operator Goals Time Frame: May 22, 2021 Roll Left & Right (QC): 6 Sit to Lying (QC): 4 (SBA) Lying-Sitting on Side/Bed(QC): 4 (SBA) Sit to Stand (QC): 4 (SBA) Chair/Xsx-vk-Xqmxz Xfer(QC): 4 (SBA) Toilet Transfer (QC): 4 (SBA) Car Transfer (QC): 4 (SBA) Does the Patient Walk: Yes Walk 10 feet (QC): 4 (CGA) Walk 50ft with 2 Turns (QC): 4 (CGA) Walk 150 ft (QC): 88 Walking 10ft on Uneven Surface: 4 (CGA) 1 Step (curb) (QC): 4 (CGA) 4 Steps (QC): 4 (CGA) 12 Steps (QC): 88 Picking up an Object (QC): 88 Wheel 50 feet with 2 turns (QC: 5 Wheel 150 feet: 5 PT Plan Treatment/Plan Treatment Plan: Continue Plan of Care Treatment Plan: Bed Mobility, Education, Functional Activity Jose Carlos, Functional Strength, Group Therapy, Gait, Safety, Therapeutic Exercise, Transfers Treatment Duration: May 22, 2021 Frequency: At least 5 of 7 days/Wk (IRF) Estimated Hrs Per Day: 1.5 hours per day Patient and/or Family Agrees t: Yes Time/GCodes Time In: 1340 Time Out: 1355 Total Billed Treatment Time: 15 Total Billed Treatment 1 visit EX 15 min KIZZY VILLEGAS PT May 03, 2021 14:18
--- NOTE | 2021-05-03 17:42 | Podiatry Progress Note ---
Standard Progress Note Progress Notes/Assess & Plan Date Seen by a Provider: May 03, 2021 Time Seen by a Provider: 17:40 Progress/Assessment & Plan Consultation dictated. Foot care given. Discussed treatment options for ingrown toenails. Final Diagnosis Onychocryptosis, onychomycosis, neuropathy NARCISA HUTCHINS DPPeterson May 03, 2021 17:42
[2021-05-03] MEDS: TAMSULOSIN 0.4 MG (FLOMAX) CAP PO SCH (18:10)
--- NOTE | 2021-05-03 18:30 | CONSULTATION REPORT ---
DATE OF SERVICE: 05/03/2021 HISTORY OF PRESENT ILLNESS: The patient is complaining about painful ingrown left great toenail. He also has difficulty reaching for and caring for his feet. 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 He is currently at [facility] for rehabilitation and seems to be improving. PAST MEDICAL HISTORY: Includes coronary artery disease, TIA x3, CVA x2. Hiatal hernia. Nephrolithiasis, urinary retention. PAST SURGICAL HISTORY: Includes endarterectomy for carotid, cholecystectomy, vasectomy, cataract surgery x2. ALLERGIES: He is allergic to ALOE VERA, CEPHALEXIN, INFLUENZA VACCINE. CURRENT MEDICATIONS: Listed on the patient's chart. SOCIAL HISTORY: The patient is retired from [employer], currently lives in [place] with his . A 71-yxif-xalr history of smoking, quit in 2001. He denies alcohol or illicit drug use. PHYSICAL EXAMINATION: LOWER EXTREMITY: The patient has a 1/4 dorsalis pedis pulse, 2/4 posterior tibial pulse bilaterally. Cap refill time is less than 3 seconds. NEUROLOGIC: He has intact protective sensation with 10 gram monofilament wire examination bilaterally. Diminished vibratory sensation to the forefoot bilaterally. INTEGUMENTARY: The patient has thick yellow dystrophic toenail, R1, L1 and 2 digits. The patient has incurvated borders to the L1 toenail without any significant erythema, edema or gross signs of bacterial infection. The patient has 5/5 muscle strength to the four major quadrants of the foot including the left lower extremity. ASSESSMENT: 1. Onychocryptosis L1. 2. Onychomycosis. 3. Peripheral neuropathy. PLAN: Various treatment options were discussed with the patient today. With verbal permission and without the aid of anesthesia, the offending distal medial and lateral nail plate was reduced. There was no bleeding involved with this procedure. However, after the nails were debrided. Betadine was applied with a light dressing. We will continue with Betadine and a light dressing to the L1 toenail for the next 5 days as a precaution. As incurvated as the toenails are at this point, I would recommend a matrixectomy to avoid complications for this toe in the future. I think this would best be done once he stabilized and we can safely take him off anticoagulants to treat due to the nail procedure. The rest of his toenails were debrided today manually mechanically. Betadine applied. He is welcome to follow up in my clinic upon discharge. Job ID: [id number] DocumentID: [id number] Dictated Date: 05/03/2021 17:48:01 Vault Attendant Date: 05/03/2021 18:29:19 Dictated By: NARCISA HUTCHINS DPM
[2021-05-03 20:00] VITALS: BP 125/60
[2021-05-03] MEDS: HYDROcodone/APAP 5 MG/325 MG (LORTAB) TAB PO PRN (21:08)
[2021-05-04] MEDS: SUCRALFATE 1 GM (CARAFATE) TAB PO SCH ×4 (06:24→20:42)
[2021-05-04 08:00] VITALS: BP 110/55
[2021-05-04] MEDS: DOCUSATE SODIUM 100 MG (COLACE) CAP PO SCH ×2 (08:30→20:41)
[2021-05-04] MEDS: ASPIRIN E.C. 81 MG (ECOTRIN) TAB PO SCH (08:30)
[2021-05-04] MEDS: SENNA W/DOCUSATE (SENOKOT S) TABLET PO SCH ×2 (08:30→20:41)
[2021-05-04] MEDS: amLODIPine 5 MG (NORVASC) TAB PO SCH (08:30)
[2021-05-04] MEDS: PANTOPRAZOLE 40 MG (PROTONIX) TAB PO SCH ×2 (08:30→20:42)
[2021-05-04] MEDS: CALCIUM CARBONATE 500 MG (TUMS) TAB.CHEW PO SCH ×4 (08:30→20:40)
[2021-05-04] MEDS: CLOPIDOGREL 75 MG (PLAVIX) TABLET PO SCH (08:30)
[2021-05-04] MEDS: OMEGA 3 (FISH OIL) 1000 MG CAP PO SCH (08:30)
[2021-05-04] MEDS: LACTOBACILLUS ACIDOPHILUS (PROBIOTIC) CAPSULE PO SCH (08:30)
[2021-05-04] MEDS: polyethylene glycoL POWDER 17 GM (MIRALAX) PACK PO SCH ×2 (08:43→19:58)
[2021-05-04] MEDS: DICLOFENAC 1% GEL 100 GM (VOLTAREN) TUBE TOP PRN (08:46)
--- NOTE | 2021-05-04 09:06 | Occupational Ther Daily Note ---
OT Current Status-Daily Note Subjective Pt alert, lying in bed. Pt agrees to therapy. Nrsg in room. Pt states that pain is not bad and does not need pain meds. Mental Status/Objective Patient Orientation: Person, Place, Time, Situation ADL-Treatment Pt agrees to shower. With HOB elevated, pt able to go from supine to EOB using bed rail. SPT with min A due to leaning toward L side though is able to correct when instructed to. Shower transfer using grabbar, shower bench and w/c with min A. Pt doffed socks by using figure 4 technique, completed R sock by self then required assist to place L ankle on R knee then pt able to doff L sock. Doffed shirt by self. Pt completed shower sitting on shower bench using grabbars and hand held shower. Pt able to complete shower with assist cleansing and drying buttocks by leaning toward L side and R UE. Assist to dry feet and lower legs. Mod A to don shirt. Pt able to thread B feet into pant legs then stood with grabbar and min A to stabilize while assist to hike pants over hips. Pt sat at sink to complete grooming and oral care independently. Therapy Code Descriptions/Definitions Functional [place] Measure: 0=Not Assessed/NA 4=Minimal Assistance 1=Total Assistance 5=Supervision or Setup 2=Maximal Assistance 6=Modified [place] 3=Moderate Assistance 7=Complete IndependenceSCALE: Activities may be completed with or without assistive devices. 4-Jnxffakvbf-yuzsgas completes the activity by him/herself with no assistance from a helper. 5-Set-up or Clean-up Assistance-helper sets up or cleans up; patient completes activity. [place] assists only prior to or following the activity. 4-Supervision or Touching Assistance-helper provides verbal cues and/or touching/steadying and/or contact guard assistance as patient completes activity. Assistance may be provided throughout the activity or intermittently. 3-Partial/Moderate Assistance-helper does LESS THAN HALF the effort. [place] lifts, holds or supports trunk or limbs, but provides less than half the effort. 2-Substantial/Maximal Assistance-helper does MORE THAN HALF the effort. [place] lifts or holds trunk or limbs and provides more than half the effort. 0-Yoschmkyw-mjdmzs does ALL the effort. Patient does none of the effort to complete the activity. Or, the assistance of 2 or more helpers is required for the patient to complete the activity. If activity was not attempted, code reason: 7-Patient Refused. 9-Not Applicable-not attempted and the patient did not perform the activity before the current illness, exacerbation or injury. 10-Not Attempted due to Environmental Limitations-(lack of equipment, weather restraints, etc.). 88-Not Attempted due to Medical Conditions or Safety Concerns. Oral Hygiene (QC): 6 Bathing Location: L Arm, L Upper Leg, R Upper Leg, Chest, Abdomen, Perineal Area Shower/Bathe Self (QC): 3 Upper Body Dressing (QC): 3 Lower Body Dressing (QC): 3 Other Treatment Pt c/o pain with L shldr. Massage and gentle stretch to L shldr to decrease pain and increase AROM. After session, pt lying in bed with call light/phone in reach. All needs met in room. OT Short Term Goals Short Term Goals Time Frame: May 11, 2021 Shower/bathe self: 3 Upper body dressin Lower body dressin Putting on/taking off footwear: 3 OT Abrasive Grader Helper Goals Abrasive Grader Helper Goals Time Frame: Jun 01, 2021 Eating (QC): 5 Oral Hygiene (QC): 5 Toileting Hygiene (QC): 4 Shower/Bathe Self (QC): 4 Upper Body Dressing (QC): 5 Lower Body Dressing (QC): 4 On/Off Footwear (QC): 4 Additional Goals: 1-Demonstrate ADL Tasks, 2-Verbalize Understanding, 3- ImproveStrength/Jose Carlos 1=Demonstrate adherence to instructed precautions during ADL tasks. 2=Patient will verbalize/demonstrate understanding of assistive devices/modifications for ADL. 3=Patient will improve strength/tolerance for activity to enable patient to perform ADL's. OT Education/Plan Problem List/Assessment Assessment: Decreased Activ Tolerance, Decreased UE Strength, Impaired Bed Mobility, Impaired Coordination, Impaired Funct Balance, Impaired Self-Care Skills, Restricted Funct UE ROM, Visual-Perceptual Deficit (L peripheral and lower quadrant visual field cut) Discharge Recommendations Plan/Recommendations: Continue POC Treatment Plan/Plan of Care Patient would benefit from OT for education, treatment and training to promote independence in ADL's, mobility, safety and/or upper extremity function for ADL's. Plan of Care: ADL Retraining, Functional Mobility, Group Exercise/Act as Ind, UE Funct Exercise/Act Treatment Duration: Jun 01, 2021 Frequency: At least 5 of 7 days/Wk (IRF) Estimated Hrs Per Day: 1.5 hours per day Agreement: Yes Rehab Potential: Fair Time/GCodes Start Time: 08:45 Stop Time: 10:00 Total Time Billed (hr/min): 75 Billed Treatment Time 1 visit-ADL 4 (60 min) NM 1 (15 min) AAKASH HODGES May 04, 2021 09:06
--- NOTE | 2021-05-04 11:07 | Physical Therapy Daily Note ---
PT Daily Note-Current Subjective Patient in bed pre tx, agrees to PT, has no complaints of pain. Appearance Patient in bed post tx with nurse call, phone, tray, bed alarm on. Mental Status Patient Orientation: Person, Place, Situation Transfers SCALE: Activities may be completed with or without assistive devices. 1-Xldhlremhc-aoermol completes the activity by him/herself with no assistance from a helper. 5-Set-up or Clean-up Assistance-helper sets up or cleans up; patient completes activity. [place] assists only prior to or following the activity. 4-Supervision or Touching Assistance-helper provides verbal cues and/or touching/steadying and/or contact guard assistance as patient completes activity. Assistance may be provided throughout the activity or intermittently. 3-Partial/Moderate Assistance-helper does LESS THAN HALF the effort. [place] lifts, holds or supports trunk or limbs, but provides less than half the effort. 2-Substantial/Maximal Assistance-helper does MORE THAN HALF the effort. [place] lifts or holds trunk or limbs and provides more than half the effort. 4-Lxjzeqpre-bcglmn does ALL the effort. Patient does none of the effort to complete the activity. Or, the assistance of 2 or more helpers is required for the patient to complete the activity. If activity was not attempted, code reason: 7-Patient Refused. 9-Not Applicable-not attempted and the patient did not perform the activity before the current illness, exacerbation or injury. 10-Not Attempted due to Environmental Limitations-(lack of equipment, weather restraints, etc.). 88-Not Attempted due to Medical Conditions or Safety Concerns. Roll Left & Right (QC): 6 Sit to Lying (QC): 3 Lying to Sitting/Side of Bed(Q: 4 Sit to Stand (QC): 3 Chair/Qst-hs-Fkqku Xfer(QC): 3 Gait Training Distance: 150', 75'x2 Walk 10 feet (QC): 3 Walk 50 ft with 2 Turns(QC): 3 Walk 150 ft (QC): 3 Gait Persons Needed: 1 Gait Assistive Device: Handheld Assist Patient ambulated 150' with MOVING CONSULTANT with min assist for balance. Patient had improved balance and step through not using the hemiwalker, however he still leans to the left just not as much. Exercises Seated Therapy Exercises: Ankle pumps, Hip flexion, Hip abd/add Seated Reps: 20 Standing: Hip Abduction, Heel/toe raises, Marching, Mini squats Standing Reps: 15 LAQ alternating for 5 min NuStep Minutes: 15 NuStep Workload: 5 Treatments bed mobility and transfers, ambulation, functional strengthening, balance training Assessment Current Status: Fair Progress Patient has a lot of difficulty with his left neglect and visual impairments but can do better with cues to slow down and scan his environment. He is very drowsy it seems all the time and needs a lot of rest breaks. PT Short Term Goals Short Term Goals Time Frame: May 08, 2021 Roll Left & Right: 4 Sit to lyin (Cynthia) Lying to sitting on side of be: 3 (Cynthia) Sit to stand: 3 (Cynthia) Chair/ytk-vx-ywupv transfer: 3 (Cynthia) Walk 10 feet: 3 (Cynthia) Walk 50 feet with two turns: 3 (Cynthia) PT Game Author Goals Game Author Goals PT Mcfp Goals Time Frame: May 22, 2021 Roll Left & Right (QC): 6 Sit to Lying (QC): 4 (SBA) Lying-Sitting on Side/Bed(QC): 4 (SBA) Sit to Stand (QC): 4 (SBA) Chair/Ztu-io-Mofrf Xfer(QC): 4 (SBA) Toilet Transfer (QC): 4 (SBA) Car Transfer (QC): 4 (SBA) Does the Patient Walk: Yes Walk 10 feet (QC): 4 (CGA) Walk 50ft with 2 Turns (QC): 4 (CGA) Walk 150 ft (QC): 88 Walking 10ft on Uneven Surface: 4 (CGA) 1 Step (curb) (QC): 4 (CGA) 4 Steps (QC): 4 (CGA) 12 Steps (QC): 88 Picking up an Object (QC): 88 Wheel 50 feet with 2 turns (QC: 5 Wheel 150 feet: 5 PT Plan Problem List Problem List: Activity Tolerance, Functional Strength, Safety, Balance, Gait, Transfer, Bed Mobility, ROM Treatment/Plan Treatment Plan: Continue Plan of Care Treatment Plan: Bed Mobility, Education, Functional Activity Jose Carlos, Functional Strength, Group Therapy, Gait, Safety, Therapeutic Exercise, Transfers Treatment Duration: May 22, 2021 Frequency: At least 5 of 7 days/Wk (IRF) Estimated Hrs Per Day: 1.5 hours per day Patient and/or Family Agrees t: Yes Safety Risks/Education Patient Education: Gait Training, Transfer Techniques, Correct Positioning, Safety Issues Teaching Recipient: Patient Teaching Methods: Demonstration, Discussion Response to Teaching: Reinforcement Needed Time/GCodes Time In: 1000 Time Out: 1115 Total Billed Treatment Time: 75 Total Billed Treatment 1 visit EX 45' FA 30' FELIZ GRIMM PT May 04, 2021 11:07
--- NOTE | 2021-05-04 11:24 | Speech Therapy Daily Note ---
Speech Daily Progress Note Subjective Date Seen by Provider: May 04, 2021 Time Seen by Provider: 00:30 Patient was resting in his bed following his OT and PT sessions. He stated he was really tired. Objective Patient is continuing to have difficulty with his antibiotic pill. The other medications are easier to take without incidence of choking. Patient utilizes compensatory strategies with his modified diet at 90% without cues. Assessment Assessment Current Status: Good Progress Treatment Plan Continue Plan of Care Speech Short Term Goals Short Term Goals Short Term Goals 1) Patient will tolerate least restrictive diet level without s/s of aspiration at 90% or greater. 2) Patient will utilize compensatory strategies for safe oral intake at 90% or greater with minimal cues. Speech Care Home Goals Professor Of Religion Goals Patient will maintain adequate nutrition/hydration via safe effective swallow function. Speech-Plan Patient/Family Goals Patient/Family Goals: Patient plans on returning to his home where he lives with his . Treatment Plan Speech Therapy Treatment Plan: Continue Plan of Care Treatment Duration: May 18, 2021 Frequency: 4 times per week (Patient will receive skilled ST 4-5x per week) Estimated Hrs Per Day: .5 hour per day Rehab Potential: Fair Barriers to Learning: Patient's recent CVA, age Pt/Family Agrees to Plan: Yes Safety Risks/Education Teaching Recipient: Patient Teaching Methods: Demonstration, Discussion Response to Teaching: Verbalize Understanding, Return Demonstration Education Topics Provided: Continued safety with oral intake Time Speech Therapy Time In: 11:30 Speech Therapy Time Out: 12:00 Total Billed Time: 30 Billed Treatment Time 1, PITO Turner May 04, 2021 11:24
--- NOTE | 2021-05-04 12:49 | PM&R Progress Note ---
Subjective HPI/CC On Admission Date Seen by Provider: May 04, 2021 Time Seen by Provider: 12:00 Subjective/Events-last exam 05/04/2021: Pt doing pretty well Walked in the halls Bowels moving a little bit now Urination doing pretty well 05/03/2021: Pt doing pretty well Cystoscope done and now voiding well DC Bactrim since he is having difficulty swallowing GERD issues continue Proton pump inhibitor and Carafate maintained Will have a suppository if bowels have not moved later 05/02/2021: Pt doing pretty well Became tearful a bit today No BM since 04/27 so laxatives given Nausea a bit last night Dr. Valencia saw him and will perform a cystoscopy tomorrow Dysphasia noted Left arm is tingling so hopefully we will regain some function Review of Systems General: Fatigue, Malaise Objective Exam Vital Signs Vital Signs Date Time Temp Pulse Resp B/P (MAP) Pulse Ox O2 Delivery O2 Flow Rate FiO2 05/04/21 20:20 Room Air 05/04/21 19:54 36.5 85 16 117/70 (86) 95 Capillary Refill : General Appearance: No Apparent Distress, WD/WN, Chronically ill HEENT: PERRL/EOMI, Normal ENT Inspection, Pharynx Normal Neck: Full Range of Motion, Normal Inspection, Non Tender, Supple, Carotid Bruit Respiratory: Chest Non Tender, Lungs Clear, Normal Breath Sounds, No Accessory Muscle Use, No Respiratory Distress Cardiovascular: Regular Rate, Rhythm, No Edema, No Gallop, No JVD, No Murmur, Normal Peripheral Pulses Gastrointestinal: Normal Bowel Sounds, No Organomegaly, No Pulsatile Mass, Non Tender, Soft Back: Normal Inspection, No CVA Tenderness, No Vertebral Tenderness Extremity: Normal Capillary Refill, Normal Inspection, Normal Range of Motion, Non Tender, No Calf Tenderness, No Pedal Edema Neurologic/Psychiatric: Alert, Oriented x3, Normal Mood/Affect, tobacco drummer II-XII Norm as Tested, Abnormal Gait, EOM Palsy (Left), Facial Droop (Left side), Motor Weakness (Left-sided weakness 2/5 upper and lower extremities) Skin: Normal Color, Warm/Dry Lymphatic: No Adenopathy Results/Procedures Lab Patient resulted labs reviewed. FIM Transfers Therapy Code Descriptions/Definitions Functional [place] Measure: 0=Not Assessed/NA 4=Minimal Assistance 1=Total Assistance 5=Supervision or Setup 2=Maximal Assistance 6=Modified [place] 3=Moderate Assistance 7=Complete IndependenceSCALE: Activities may be completed with or without assistive devices. 9-Erpuilqrlo-ovwsmwi completes the activity by him/herself with no assistance from a helper. 5-Set-up or Clean-up Assistance-helper sets up or cleans up; patient completes activity. [place] assists only prior to or following the activity. 4-Supervision or Touching Assistance-helper provides verbal cues and/or touching/steadying and/or contact guard assistance as patient completes activity. Assistance may be provided throughout the activity or intermittently. 3-Partial/Moderate Assistance-helper does LESS THAN HALF the effort. [place] lifts, holds or supports trunk or limbs, but provides less than half the effort. 2-Substantial/Maximal Assistance-helper does MORE THAN HALF the effort. [place] lifts or holds trunk or limbs and provides more than half the effort. 0-Hyvecjrgu-hoilwe does ALL the effort. Patient does none of the effort to complete the activity. Or, the assistance of 2 or more helpers is required for the patient to complete the activity. If activity was not attempted, code reason: 7-Patient Refused. 9-Not Applicable-not attempted and the patient did not perform the activity before the current illness, exacerbation or injury. 10-Not Attempted due to Environmental Limitations-(lack of equipment, weather restraints, etc.). 88-Not Attempted due to Medical Conditions or Safety Concerns. Roll Left to Right (QC): 6 Sit to Lying (QC): 3 Sit to Stand (QC): 3 Chair/Iid-mm-Dknha Xfer(QC): 3 Car Transfer (QC): 3 Gait Training Does the Patient Walk?: Yes Distance: 150', 75'x2 Walk 10 feet (QC): 3 Walk 50 ft with 2 Turns(QC): 3 Walk 150 ft (QC): 3 Walking 10ft/uneven surface-QC: 88 Gait Persons Needed: 1 Gait Assistive Device: Handheld Assist Wheelchair Training Does the Pt Use a Wheelchair?: Yes Distance: 400' Wheel 50 ft with 2 turns (QC): 3 Wheel 150 ft (QC): 3 Type of Wheelchair: Manual Stair Training 1 Step (curb) (QC): 88 4 Steps (QC): 88 12 Steps (QC): 88 Balance Picking up an Object (QC): 88 ADL-Treatment Eating (QC): 4 (Supervision and set up due to visual field cut, pt is not scanning toward L side and requires reminders to find food and utensils on L side.) Oral Hygiene (QC): 6 Bathing Location: L Arm, L Upper Leg, R Upper Leg, Chest, Abdomen, Perineal Area Shower/Bathe Self (QC): 3 Upper Body Dressing (QC): 3 Lower Body Dressing (QC): 3 On/Off Footwear (QC): 2 Toileting Hygiene (QC): 2 Toilet Transfer (QC): 3 Assessment/Plan Assessment and Plan Assess & Plan/Chief Complaint Assessment: S/P right carotid endarectomy 04-27-21 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
--- NOTE | 2021-05-04 12:52 | Progress Note - Urology ---
Progress Note-Urology Progress Notes/Assess & Plan Progress/Assessment & Plan VOIDING WELL. NO TAYLOR FOR CATH. TOLERATES FLOMAX WELL. KEEP SAME PLAN Final Diagnosis RETENTION (RESOLVING) QING WAN MD May 04, 2021 12:52
[2021-05-04] MEDS: TAMSULOSIN 0.4 MG (FLOMAX) CAP PO SCH (18:16)
[2021-05-04 19:54] VITALS: BP 117/70
[2021-05-04] MEDS: MELATONIN 3 MG TABLET PO PRN (20:41)
[2021-05-05] MEDS: CALCIUM CARBONATE 500 MG (TUMS) TAB.CHEW PO SCH ×7 (00:25→23:52)
[2021-05-05] MEDS: ONDANSETRON 4 MG (ZOFRAN) ORAL DISSOLVE TAB PO PRN (00:48)
[2021-05-05] MEDS: SUCRALFATE 1 GM (CARAFATE) TAB PO SCH (05:49)
[2021-05-05 07:30] VITALS: BP 134/66
[2021-05-05] MEDS: PANTOPRAZOLE 40 MG (PROTONIX) TAB PO SCH ×2 (07:52→20:42)
[2021-05-05] MEDS: SENNA W/DOCUSATE (SENOKOT S) TABLET PO SCH ×2 (07:52→20:42)
[2021-05-05] MEDS: CLOPIDOGREL 75 MG (PLAVIX) TABLET PO SCH (07:52)
[2021-05-05] MEDS: amLODIPine 5 MG (NORVASC) TAB PO SCH (07:52)
[2021-05-05] MEDS: ASPIRIN E.C. 81 MG (ECOTRIN) TAB PO SCH (07:52)
[2021-05-05] MEDS: DOCUSATE SODIUM 100 MG (COLACE) CAP PO SCH ×2 (07:52→20:42)
[2021-05-05] MEDS: OMEGA 3 (FISH OIL) 1000 MG CAP PO SCH (07:53)
[2021-05-05] MEDS: LACTOBACILLUS ACIDOPHILUS (PROBIOTIC) CAPSULE PO SCH (07:53)
[2021-05-05] MEDS: polyethylene glycoL POWDER 17 GM (MIRALAX) PACK PO SCH ×2 (09:12→20:42)
--- NOTE | 2021-05-05 10:31 | Physical Therapy Daily Note ---
PT Daily Note-Current Subjective Patient in bed pre tx, agrees to PT, has no complaints of pain but says he is very tired. Appearance Patient in bed post tx with nurse call, phone, tray, all needs met, bed alarm on. Mental Status Patient Orientation: Person, Place, Situation Transfers SCALE: Activities may be completed with or without assistive devices. 3-Sgxkziutek-pmkqdba completes the activity by him/herself with no assistance from a helper. 5-Set-up or Clean-up Assistance-helper sets up or cleans up; patient completes activity. [place] assists only prior to or following the activity. 4-Supervision or Touching Assistance-helper provides verbal cues and/or touching/steadying and/or contact guard assistance as patient completes activity. Assistance may be provided throughout the activity or intermittently. 3-Partial/Moderate Assistance-helper does LESS THAN HALF the effort. [place] lifts, holds or supports trunk or limbs, but provides less than half the effort. 2-Substantial/Maximal Assistance-helper does MORE THAN HALF the effort. [place] lifts or holds trunk or limbs and provides more than half the effort. 7-Oniaxycio-ggzyxs does ALL the effort. Patient does none of the effort to complete the activity. Or, the assistance of 2 or more helpers is required for the patient to complete the activity. If activity was not attempted, code reason: 7-Patient Refused. 9-Not Applicable-not attempted and the patient did not perform the activity before the current illness, exacerbation or injury. 10-Not Attempted due to Environmental Limitations-(lack of equipment, weather restraints, etc.). 88-Not Attempted due to Medical Conditions or Safety Concerns. Roll Left & Right (QC): 6 Sit to Lying (QC): 4 Lying to Sitting/Side of Bed(Q: 4 Sit to Stand (QC): 3 Chair/Iqs-yv-Uxshb Xfer(QC): 3 Gait Training Distance: 150'x2 Walk 10 feet (QC): 3 Walk 50 ft with 2 Turns(QC): 3 Walk 150 ft (QC): 3 Gait Persons Needed: 1 Gait Assistive Device: Handheld Assist Patient has difficulty using an assistive device, does much better with balance and coordination with RN MATERNITY and assist with balance from a therapist. Treatments bed mobility and transfers, ambulation Assessment Current Status: Fair Progress patient continues to struggle with his left neglect and visual impairment. He needs constant cues to scan to the left and for obstacles, etc. PT Short Term Goals Short Term Goals Time Frame: May 08, 2021 Roll Left & Right: 4 Sit to lyin (Cynthia) Lying to sitting on side of be: 3 (Cynthia) Sit to stand: 3 (Cynthia) Chair/vvi-ft-zoord transfer: 3 (Cynthia) Walk 10 feet: 3 (Cynthia) Walk 50 feet with two turns: 3 (Cynthia) PT Network Solutions Architect Goals Senior Care Goals PT Senior Care Goals Time Frame: May 22, 2021 Roll Left & Right (QC): 6 Sit to Lying (QC): 4 (SBA) Lying-Sitting on Side/Bed(QC): 4 (SBA) Sit to Stand (QC): 4 (SBA) Chair/Ekf-rj-Lsyuw Xfer(QC): 4 (SBA) Toilet Transfer (QC): 4 (SBA) Car Transfer (QC): 4 (SBA) Does the Patient Walk: Yes Walk 10 feet (QC): 4 (CGA) Walk 50ft with 2 Turns (QC): 4 (CGA) Walk 150 ft (QC): 88 Walking 10ft on Uneven Surface: 4 (CGA) 1 Step (curb) (QC): 4 (CGA) 4 Steps (QC): 4 (CGA) 12 Steps (QC): 88 Picking up an Object (QC): 88 Wheel 50 feet with 2 turns (QC: 5 Wheel 150 feet: 5 PT Plan Problem List Problem List: Activity Tolerance, Functional Strength, Safety, Balance, Gait, Transfer, Bed Mobility, ROM Treatment/Plan Treatment Plan: Continue Plan of Care Treatment Plan: Bed Mobility, Education, Functional Activity Jose Carlos, Functional Strength, Group Therapy, Gait, Safety, Therapeutic Exercise, Transfers Treatment Duration: May 22, 2021 Frequency: At least 5 of 7 days/Wk (IRF) Estimated Hrs Per Day: 1.5 hours per day Patient and/or Family Agrees t: Yes Safety Risks/Education Patient Education: Gait Training, Transfer Techniques, Correct Positioning, Safety Issues Teaching Recipient: Patient Teaching Methods: Demonstration, Discussion Response to Teaching: Reinforcement Needed Time/GCodes Time In: 1003 Time Out: 1017 Total Billed Treatment Time: 14 Total Billed Treatment 1 visit GT 14' FELIZ GRIMM PT May 05, 2021 10:31
--- NOTE | 2021-05-05 10:56 | PM&R Progress Note ---
Subjective HPI/CC On Admission Date Seen by Provider: May 05, 2021 Time Seen by Provider: 11:00 Subjective/Events-last exam 05/05/2021: Patient doing really well Seems to have little confidence Discontinue Carafate due to side effects Incision looks good on the right carotid Voiding well Bowels are moving 05/04/2021: Pt doing pretty well Walked in the halls Bowels moving a little bit now Urination doing pretty well 05/03/2021: Pt doing pretty well Cystoscope done and now voiding well DC Bactrim since he is having difficulty swallowing GERD issues continue Proton pump inhibitor and Carafate maintained Will have a suppository if bowels have not moved later 05/02/2021: Pt doing pretty well Became tearful a bit today No BM since 04/27 so laxatives given Nausea a bit last night Dr. Valencia saw him and will perform a cystoscopy tomorrow Dysphasia noted Left arm is tingling so hopefully we will regain some function Review of Systems General: Fatigue, Malaise Neurological: Weakness Objective Exam Vital Signs Vital Signs Date Time Temp Pulse Resp B/P (MAP) Pulse Ox O2 Delivery O2 Flow Rate FiO2 05/05/21 09:01 Room Air 05/05/21 07:30 36.8 81 20 134/66 (88) 92 Capillary Refill : General Appearance: No Apparent Distress, WD/WN, Chronically ill HEENT: PERRL/EOMI, Normal ENT Inspection, Pharynx Normal Neck: Full Range of Motion, Normal Inspection, Non Tender, Supple, Carotid Bruit Respiratory: Chest Non Tender, Lungs Clear, Normal Breath Sounds, No Accessory Muscle Use, No Respiratory Distress Cardiovascular: Regular Rate, Rhythm, No Edema, No Gallop, No JVD, No Murmur, Normal Peripheral Pulses Gastrointestinal: Normal Bowel Sounds, No Organomegaly, No Pulsatile Mass, Non Tender, Soft Back: Normal Inspection, No CVA Tenderness, No Vertebral Tenderness Extremity: Normal Capillary Refill, Normal Inspection, Normal Range of Motion, Non Tender, No Calf Tenderness, No Pedal Edema Neurologic/Psychiatric: Alert, Oriented x3, Normal Mood/Affect, char dust cleaner and salvager II-XII Norm as Tested, Abnormal Gait, EOM Palsy (Left), Facial Droop (Left side), Motor Weakness (Left-sided weakness 2/5 upper and lower extremities) Skin: Normal Color, Warm/Dry Lymphatic: No Adenopathy Results/Procedures Lab Patient resulted labs reviewed. FIM Transfers Therapy Code Descriptions/Definitions Functional [place] Measure: 0=Not Assessed/NA 4=Minimal Assistance 1=Total Assistance 5=Supervision or Setup 2=Maximal Assistance 6=Modified [place] 3=Moderate Assistance 7=Complete IndependenceSCALE: Activities may be completed with or without assistive devices. 3-Pddxnrautz-bzxxswl completes the activity by him/herself with no assistance from a helper. 5-Set-up or Clean-up Assistance-helper sets up or cleans up; patient completes activity. [place] assists only prior to or following the activity. 4-Supervision or Touching Assistance-helper provides verbal cues and/or touching/steadying and/or contact guard assistance as patient completes activity. Assistance may be provided throughout the activity or intermittently. 3-Partial/Moderate Assistance-helper does LESS THAN HALF the effort. [place] lifts, holds or supports trunk or limbs, but provides less than half the effort. 2-Substantial/Maximal Assistance-helper does MORE THAN HALF the effort. [place] lifts or holds trunk or limbs and provides more than half the effort. 1-Hdinmliqh-dlellv does ALL the effort. Patient does none of the effort to complete the activity. Or, the assistance of 2 or more helpers is required for the patient to complete the activity. If activity was not attempted, code reason: 7-Patient Refused. 9-Not Applicable-not attempted and the patient did not perform the activity before the current illness, exacerbation or injury. 10-Not Attempted due to Environmental Limitations-(lack of equipment, weather restraints, etc.). 88-Not Attempted due to Medical Conditions or Safety Concerns. Roll Left to Right (QC): 6 Sit to Lying (QC): 4 Sit to Stand (QC): 3 Chair/Drc-ps-Gdbwk Xfer(QC): 3 Car Transfer (QC): 3 Gait Training Does the Patient Walk?: Yes Distance: 150'x2 Walk 10 feet (QC): 3 Walk 50 ft with 2 Turns(QC): 3 Walk 150 ft (QC): 3 Walking 10ft/uneven surface-QC: 88 Gait Persons Needed: 1 Gait Assistive Device: Handheld Assist Wheelchair Training Does the Pt Use a Wheelchair?: Yes Distance: 400' Wheel 50 ft with 2 turns (QC): 3 Wheel 150 ft (QC): 3 Type of Wheelchair: Manual Stair Training 1 Step (curb) (QC): 88 4 Steps (QC): 88 12 Steps (QC): 88 Balance Picking up an Object (QC): 88 ADL-Treatment Eating (QC): 4 (Supervision and set up due to visual field cut, pt is not scanning toward L side and requires reminders to find food and utensils on L side.) Oral Hygiene (QC): 6 Bathing Location: L Arm, L Upper Leg, R Upper Leg, Chest, Abdomen, Perineal Area Shower/Bathe Self (QC): 3 Upper Body Dressing (QC): 3 Lower Body Dressing (QC): 3 On/Off Footwear (QC): 2 Toileting Hygiene (QC): 2 Toilet Transfer (QC): 3 Assessment/Plan Assessment and Plan Assess & Plan/Chief Complaint Assessment: S/P right carotid endarectomy 04-27-21 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
[2021-05-05] MEDS: TAMSULOSIN 0.4 MG (FLOMAX) CAP PO SCH (18:11)
[2021-05-05 20:00] VITALS: BP 139/69
[2021-05-06] MEDS: CALCIUM CARBONATE 500 MG (TUMS) TAB.CHEW PO SCH ×6 (00:12→20:44)
--- NOTE | 2021-05-06 06:38 | PM&R Progress Note ---
Subjective HPI/CC On Admission Date Seen by Provider: May 06, 2021 Time Seen by Provider: 12:30 Subjective/Events-last exam 05/06/2021: Patient doing really well today Bowels moved today Eating a bit more We will have speech therapy change diet 05/05/2021: Patient doing really well Seems to have little confidence Discontinue Carafate due to side effects Incision looks good on the right carotid Voiding well Bowels are moving 05/04/2021: Pt doing pretty well Walked in the halls Bowels moving a little bit now Urination doing pretty well 05/03/2021: Pt doing pretty well Cystoscope done and now voiding well DC Bactrim since he is having difficulty swallowing GERD issues continue Proton pump inhibitor and Carafate maintained Will have a suppository if bowels have not moved later 05/02/2021: Pt doing pretty well Became tearful a bit today No BM since 04/27 so laxatives given Nausea a bit last night Dr. Valencia saw him and will perform a cystoscopy tomorrow Dysphasia noted Left arm is tingling so hopefully we will regain some function Review of Systems General: Fatigue, Malaise Objective Exam Vital Signs Vital Signs Date Time Temp Pulse Resp B/P (MAP) Pulse Ox O2 Delivery O2 Flow Rate FiO2 05/06/21 20:49 Room Air 05/06/21 20:00 37.0 77 20 136/73 (94) 93 Capillary Refill : General Appearance: No Apparent Distress, WD/WN, Chronically ill HEENT: PERRL/EOMI, Normal ENT Inspection, Pharynx Normal Neck: Full Range of Motion, Normal Inspection, Non Tender, Supple, Carotid Bruit Respiratory: Chest Non Tender, Lungs Clear, Normal Breath Sounds, No Accessory Muscle Use, No Respiratory Distress Cardiovascular: Regular Rate, Rhythm, No Edema, No Gallop, No JVD, No Murmur, Normal Peripheral Pulses Gastrointestinal: Normal Bowel Sounds, No Organomegaly, No Pulsatile Mass, Non Tender, Soft Back: Normal Inspection, No CVA Tenderness, No Vertebral Tenderness Extremity: Normal Capillary Refill, Normal Inspection, Normal Range of Motion, Non Tender, No Calf Tenderness, No Pedal Edema Neurologic/Psychiatric: Alert, Oriented x3, Normal Mood/Affect, chronometer tester II-XII Norm as Tested, Abnormal Gait, EOM Palsy (Left), Facial Droop (Left side), Motor Weakness (Left-sided weakness 2/5 upper and lower extremities) Skin: Normal Color, Warm/Dry Lymphatic: No Adenopathy Results/Procedures Lab Patient resulted labs reviewed. FIM Transfers Therapy Code Descriptions/Definitions Functional [place] Measure: 0=Not Assessed/NA 4=Minimal Assistance 1=Total Assistance 5=Supervision or Setup 2=Maximal Assistance 6=Modified [place] 3=Moderate Assistance 7=Complete IndependenceSCALE: Activities may be completed with or without assistive devices. 1-Kdfockucnl-yhacgcq completes the activity by him/herself with no assistance from a helper. 5-Set-up or Clean-up Assistance-helper sets up or cleans up; patient completes activity. [place] assists only prior to or following the activity. 4-Supervision or Touching Assistance-helper provides verbal cues and/or touching/steadying and/or contact guard assistance as patient completes activity. Assistance may be provided throughout the activity or intermittently. 3-Partial/Moderate Assistance-helper does LESS THAN HALF the effort. [place] lifts, holds or supports trunk or limbs, but provides less than half the effort. 2-Substantial/Maximal Assistance-helper does MORE THAN HALF the effort. [place] lifts or holds trunk or limbs and provides more than half the effort. 6-Iaczgpoah-lzazop does ALL the effort. Patient does none of the effort to complete the activity. Or, the assistance of 2 or more helpers is required for the patient to complete the activity. If activity was not attempted, code reason: 7-Patient Refused. 9-Not Applicable-not attempted and the patient did not perform the activity before the current illness, exacerbation or injury. 10-Not Attempted due to Environmental Limitations-(lack of equipment, weather restraints, etc.). 88-Not Attempted due to Medical Conditions or Safety Concerns. Roll Left to Right (QC): 6 Sit to Lying (QC): 4 Sit to Stand (QC): 3 Chair/Czo-gw-Tkvil Xfer(QC): 3 Car Transfer (QC): 3 Gait Training Does the Patient Walk?: Yes Distance: 150'x2 Walk 10 feet (QC): 3 Walk 50 ft with 2 Turns(QC): 3 Walk 150 ft (QC): 3 Walking 10ft/uneven surface-QC: 88 Gait Persons Needed: 1 Gait Assistive Device: Handheld Assist Wheelchair Training Does the Pt Use a Wheelchair?: Yes Distance: 400' Wheel 50 ft with 2 turns (QC): 3 Wheel 150 ft (QC): 3 Type of Wheelchair: Manual Stair Training 1 Step (curb) (QC): 88 4 Steps (QC): 88 12 Steps (QC): 88 Balance Picking up an Object (QC): 88 ADL-Treatment Eating (QC): 4 (Supervision and set up due to visual field cut, pt is not scanning toward L side and requires reminders to find food and utensils on L side.) Oral Hygiene (QC): 6 Bathing Location: L Arm, L Upper Leg, R Upper Leg, Chest, Abdomen, Perineal Area Shower/Bathe Self (QC): 3 Upper Body Dressing (QC): 3 Lower Body Dressing (QC): 3 On/Off Footwear (QC): 2 Toileting Hygiene (QC): 2 Toilet Transfer (QC): 3 Assessment/Plan Assessment and Plan Assess & Plan/Chief Complaint Assessment: S/P right carotid endarectomy 04-27-21 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
[2021-05-06 08:28] VITALS: BP 137/72
[2021-05-06] MEDS: amLODIPine 5 MG (NORVASC) TAB PO SCH (08:29)
[2021-05-06] MEDS: OMEGA 3 (FISH OIL) 1000 MG CAP PO SCH (08:29)
[2021-05-06] MEDS: LACTOBACILLUS ACIDOPHILUS (PROBIOTIC) CAPSULE PO SCH (08:29)
[2021-05-06] MEDS: ASPIRIN E.C. 81 MG (ECOTRIN) TAB PO SCH (08:29)
[2021-05-06] MEDS: PANTOPRAZOLE 40 MG (PROTONIX) TAB PO SCH ×2 (08:29→20:42)
[2021-05-06] MEDS: CLOPIDOGREL 75 MG (PLAVIX) TABLET PO SCH (08:29)
[2021-05-06] MEDS: DOCUSATE SODIUM 100 MG (COLACE) CAP PO SCH ×2 (08:30→20:42)
[2021-05-06] MEDS: polyethylene glycoL POWDER 17 GM (MIRALAX) PACK PO SCH ×2 (09:51→20:44)
[2021-05-06] MEDS: SENNA W/DOCUSATE (SENOKOT S) TABLET PO SCH ×2 (09:51→20:42)
[2021-05-06] MEDS: TAMSULOSIN 0.4 MG (FLOMAX) CAP PO SCH (17:44)
[2021-05-06 20:00] VITALS: BP 136/73
[2021-05-06] MEDS: MELATONIN 3 MG TABLET PO PRN (21:06)
[2021-05-07] MEDS: CALCIUM CARBONATE 500 MG (TUMS) TAB.CHEW PO SCH ×3 (00:43→08:25)
[2021-05-07 05:55] LABS: BASOPHILS % (AUTO) 1 % (0-10); EOSINOPHILS # (AUTO) 0.2 10^3/uL (0.0-0.3); EOSINOPHILS % (AUTO) 3 % (0-10); HEMATOCRIT 32 % (40-54); HEMOGLOBIN 10.9 g/dL (13.3-17.7); LYMPHOCYTES % (AUTO) 28 % (12-44); MEAN CORPUSCULAR HEMOGLOBIN 29 pg (25-34); MEAN CORPUSCULAR HGB CONC 34 g/dL (32-36); MEAN CORPUSCULAR VOLUME 87 fL (80-99); MEAN PLATELET VOLUME 9.5 fL (9.0-12.2); MONOCYTES # (AUTO) 0.6 10^3/uL (0.0-1.0); MONOCYTES % (AUTO) 8 % (0-12); NEUTROPHILS # (AUTO) 4.4 10^3/uL (1.8-7.8); NEUTROPHILS % (AUTO) 60 % (42-75); PLATELET COUNT 296 10^3/uL (130-400); WHITE BLOOD COUNT 7.3 10^3/uL (4.3-11.0)
[2021-05-07 06:01] LABS: ALBUMIN 3.2 GM/DL (3.2-4.5); POTASSIUM 3.5 MMOL/L (3.6-5.0)
[2021-05-07 06:02] LABS: CALCIUM 8.7 MG/DL (8.5-10.1)
[2021-05-07 06:04] LABS: TOTAL PROTEIN 6.4 GM/DL (6.4-8.2)
[2021-05-07 06:05] LABS: BILIRUBIN,TOTAL 0.5 MG/DL (0.1-1.0)
[2021-05-07 06:07] LABS: CREATININE SERUM 0.95 MG/DL (0.60-1.30)
[2021-05-07 07:51] VITALS: BP 122/63
[2021-05-07] MEDS: CLOPIDOGREL 75 MG (PLAVIX) TABLET PO SCH (08:24)
[2021-05-07] MEDS: PANTOPRAZOLE 40 MG (PROTONIX) TAB PO SCH ×2 (08:24→20:03)
[2021-05-07] MEDS: SENNA W/DOCUSATE (SENOKOT S) TABLET PO SCH ×2 (08:24→20:03)
[2021-05-07] MEDS: amLODIPine 5 MG (NORVASC) TAB PO SCH (08:24)
[2021-05-07] MEDS: OMEGA 3 (FISH OIL) 1000 MG CAP PO SCH (08:24)
[2021-05-07] MEDS: ASPIRIN E.C. 81 MG (ECOTRIN) TAB PO SCH (08:24)
[2021-05-07] MEDS: LACTOBACILLUS ACIDOPHILUS (PROBIOTIC) CAPSULE PO SCH (08:24)
[2021-05-07] MEDS: DOCUSATE SODIUM 100 MG (COLACE) CAP PO SCH ×2 (08:25→20:03)
[2021-05-07] MEDS: polyethylene glycoL POWDER 17 GM (MIRALAX) PACK PO SCH ×2 (08:27→19:37)
--- NOTE | 2021-05-07 08:48 | Speech Therapy Daily Note ---
Speech Daily Progress Note Subjective Date Seen by Provider: May 07, 2021 Time Seen by Provider: 00:30 Patient was resting in his bed. He states he is "tired of this bed". Objective Patient took medications individually without difficulty. Patient is no longer on the large antibiotic that was difficult for him to take. Assessment Assessment Current Status: Good Progress Treatment Plan Continue Plan of Care Speech Short Term Goals Short Term Goals Short Term Goals 1) Patient will tolerate least restrictive diet level without s/s of aspiration at 90% or greater. 2) Patient will utilize compensatory strategies for safe oral intake at 90% or greater with minimal cues. Speech Culture Manager Goals Culture Manager Goals Patient will maintain adequate nutrition/hydration via safe effective swallow function. Speech-Plan Patient/Family Goals Patient/Family Goals: Patient plans on returning to his home Treatment Plan Speech Therapy Treatment Plan: Continue Plan of Care Treatment Duration: May 18, 2021 Frequency: 4 times per week (Patient will receive skilled ST 4-5x per week) Estimated Hrs Per Day: .5 hour per day Rehab Potential: Fair Barriers to Learning: Patient's recent CVA Pt/Family Agrees to Plan: Yes Safety Risks/Education Teaching Recipient: Patient Teaching Methods: Demonstration, Discussion Response to Teaching: Verbalize Understanding, Return Demonstration Education Topics Provided: Continued safety of oral intake Time Speech Therapy Time In: 08:30 Speech Therapy Time Out: 09:00 Total Billed Time: 30 Billed Treatment Time [address] May 07, 2021 08:48
--- NOTE | 2021-05-07 09:53 | PM&R Progress Note ---
Subjective HPI/CC On Admission Date Seen by Provider: May 07, 2021 Time Seen by Provider: 10:00 Subjective/Events-last exam 05/07/2021: Pt doing pretty well but having things stuck in his throat He has had multiple EGDs and stretching before so will have Dr. Umana see him Multiple somatic complaints 05/06/2021: Patient doing really well today Bowels moved today Eating a bit more We will have speech therapy change diet 05/05/2021: Patient doing really well Seems to have little confidence Discontinue Carafate due to side effects Incision looks good on the right carotid Voiding well Bowels are moving 05/04/2021: Pt doing pretty well Walked in the halls Bowels moving a little bit now Urination doing pretty well 05/03/2021: Pt doing pretty well Cystoscope done and now voiding well DC Bactrim since he is having difficulty swallowing GERD issues continue Proton pump inhibitor and Carafate maintained Will have a suppository if bowels have not moved later 05/02/2021: Pt doing pretty well Became tearful a bit today No BM since 04/27 so laxatives given Nausea a bit last night Dr. Valencia saw him and will perform a cystoscopy tomorrow Dysphasia noted Left arm is tingling so hopefully we will regain some function Review of Systems General: Fatigue Objective Exam Vital Signs Vital Signs Date Time Temp Pulse Resp B/P (MAP) Pulse Ox O2 Delivery O2 Flow Rate FiO2 05/07/21 20:30 Room Air 05/07/21 20:00 37.3 73 18 138/70 (92) 95 Capillary Refill : General Appearance: No Apparent Distress, WD/WN, Chronically ill HEENT: PERRL/EOMI, Normal ENT Inspection, Pharynx Normal Neck: Full Range of Motion, Normal Inspection, Non Tender, Supple, Carotid Bruit Respiratory: Chest Non Tender, Lungs Clear, Normal Breath Sounds, No Accessory Muscle Use, No Respiratory Distress Cardiovascular: Regular Rate, Rhythm, No Edema, No Gallop, No JVD, No Murmur, Normal Peripheral Pulses Gastrointestinal: Normal Bowel Sounds, No Organomegaly, No Pulsatile Mass, Non Tender, Soft Back: Normal Inspection, No CVA Tenderness, No Vertebral Tenderness Extremity: Normal Capillary Refill, Normal Inspection, Normal Range of Motion, Non Tender, No Calf Tenderness, No Pedal Edema Neurologic/Psychiatric: Alert, Oriented x3, Normal Mood/Affect, public health microbiologist II-XII Norm as Tested, Abnormal Gait, EOM Palsy (Left), Facial Droop (Left side), Motor Weakness (Left-sided weakness 2/5 upper and lower extremities) Skin: Normal Color, Warm/Dry Lymphatic: No Adenopathy Results/Procedures Lab Patient resulted labs reviewed. FIM Transfers Therapy Code Descriptions/Definitions Functional [place] Measure: 0=Not Assessed/NA 4=Minimal Assistance 1=Total Assistance 5=Supervision or Setup 2=Maximal Assistance 6=Modified [place] 3=Moderate Assistance 7=Complete IndependenceSCALE: Activities may be completed with or without assistive devices. 3-Gnpasqjebd-lqiqhua completes the activity by him/herself with no assistance from a helper. 5-Set-up or Clean-up Assistance-helper sets up or cleans up; patient completes activity. [place] assists only prior to or following the activity. 4-Supervision or Touching Assistance-helper provides verbal cues and/or touching/steadying and/or contact guard assistance as patient completes activity. Assistance may be provided throughout the activity or intermittently. 3-Partial/Moderate Assistance-helper does LESS THAN HALF the effort. [place] lifts, holds or supports trunk or limbs, but provides less than half the effort. 2-Substantial/Maximal Assistance-helper does MORE THAN HALF the effort. [place] lifts or holds trunk or limbs and provides more than half the effort. 5-Sujbsmpgh-nxhntp does ALL the effort. Patient does none of the effort to complete the activity. Or, the assistance of 2 or more helpers is required for the patient to complete the activity. If activity was not attempted, code reason: 7-Patient Refused. 9-Not Applicable-not attempted and the patient did not perform the activity before the current illness, exacerbation or injury. 10-Not Attempted due to Environmental Limitations-(lack of equipment, weather restraints, etc.). 88-Not Attempted due to Medical Conditions or Safety Concerns. Roll Left to Right (QC): 6 Sit to Lying (QC): 4 Sit to Stand (QC): 3 Chair/Ivu-fu-Hhfek Xfer(QC): 3 Car Transfer (QC): 3 Gait Training Does the Patient Walk?: Yes Distance: 150'x2 Walk 10 feet (QC): 3 Walk 50 ft with 2 Turns(QC): 3 Walk 150 ft (QC): 3 Walking 10ft/uneven surface-QC: 88 Gait Persons Needed: 1 Gait Assistive Device: Handheld Assist Wheelchair Training Does the Pt Use a Wheelchair?: Yes Distance: 400' Wheel 50 ft with 2 turns (QC): 3 Wheel 150 ft (QC): 3 Type of Wheelchair: Manual Stair Training 1 Step (curb) (QC): 88 4 Steps (QC): 88 12 Steps (QC): 88 Balance Picking up an Object (QC): 88 ADL-Treatment Eating (QC): 4 (Supervision and set up due to visual field cut, pt is not scanning toward L side and requires reminders to find food and utensils on L side.) Oral Hygiene (QC): 6 Bathing Location: L Arm, L Upper Leg, R Upper Leg, Chest, Abdomen, Perineal Area Shower/Bathe Self (QC): 3 Upper Body Dressing (QC): 3 Lower Body Dressing (QC): 3 On/Off Footwear (QC): 2 Toileting Hygiene (QC): 2 Toilet Transfer (QC): 3 Assessment/Plan Assessment and Plan Assess & Plan/Chief Complaint Assessment: S/P right carotid endarectomy 04-27-21 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 Umana Plan: Aggressive therapy Urology consult Monitor closely 05/02/2021: Appreciate urology Cystoscopy tomorrow Bowel regimen 05/03/2021: Status post cystoscopy Voiding well now DC Bactrim 05/04/2021: Much improved Moving around much better Monitor bowel function 05/05/2021: Supportive care Ambulating well 05/06/2021: Supportive care Monitor closely 05/07/2021: Dr. Umana appreciated Dysphagia management (1) CVA (cerebral vascular accident) GUILLERMO CABELLO DO May 07, 2021 09:53
--- NOTE | 2021-05-07 11:05 | Progress Note - Urology ---
Progress Note-Urology Progress Notes/Assess & Plan Progress/Assessment & Plan CONTINUES VOIDING WELL ON OWN. TO CONTINUE FLOMAX AFTER DISCHARGE AND SEE ME IN 2 WEEKS Final Diagnosis RETENTION (RESOLVED) QING WAN MD May 07, 2021 11:05
--- NOTE | 2021-05-07 11:28 | Occupational Ther Daily Note ---
OT Current Status-Daily Note Subjective Pt in bed with eyes closed. Pt agrees to therapy though c/o fatigue. During therapy, pt c/o slight dizziness and being hard to lift head. Pt able to participate in therapy session. Mental Status/Objective Patient Orientation: Person, Place, Time, Situation ADL-Treatment Pt agrees to shower. Pt independent with supine to sitting EOB then sat EOB independently. CGA for SPT from EOB to w/c going toward L side. Pt sat at sink in w/c to brush mouth after dentures where out of mouth. Set up required for o ral care at this time. Transferred to/from shower bench with CGA using grabbars and w/c. Pt completed shower after set up with SBA for safety. Assist to dry buttocks and L UE. Assisted pt to thread B LE into pant legs then assist to stand and hike pants over hips. Pt able to thread B UE into shirt after set up then assist to find neck of shirt to place over head, assist to pull shirt down. Educated pt on one handed sock donning technique while pt able to doff L sock independently and min A to doff L sock with figure 4 tech, max A to complete. Therapy Code Descriptions/Definitions Functional [place] Measure: 0=Not Assessed/NA 4=Minimal Assistance 1=Total Assistance 5=Supervision or Setup 2=Maximal Assistance 6=Modified [place] 3=Moderate Assistance 7=Complete IndependenceSCALE: Activities may be completed with or without assistive devices. 5-Vysloyzqqj-pjgjnpx completes the activity by him/herself with no assistance from a helper. 5-Set-up or Clean-up Assistance-helper sets up or cleans up; patient completes activity. [place] assists only prior to or following the activity. 4-Supervision or Touching Assistance-helper provides verbal cues and/or touching/steadying and/or contact guard assistance as patient completes activity. Assistance may be provided throughout the activity or intermittently. 3-Partial/Moderate Assistance-helper does LESS THAN HALF the effort. [place] lifts, holds or supports trunk or limbs, but provides less than half the effort. 2-Substantial/Maximal Assistance-helper does MORE THAN HALF the effort. [place] lifts or holds trunk or limbs and provides more than half the effort. 7-Srepanycj-ojfoxv does ALL the effort. Patient does none of the effort to complete the activity. Or, the assistance of 2 or more helpers is required for the patient to complete the activity. If activity was not attempted, code reason: 7-Patient Refused. 9-Not Applicable-not attempted and the patient did not perform the activity before the current illness, exacerbation or injury. 10-Not Attempted due to Environmental Limitations-(lack of equipment, weather restraints, etc.). 88-Not Attempted due to Medical Conditions or Safety Concerns. Oral Hygiene (QC): 3 Bathing Location: L Arm, R Arm, L Upper Leg, R Upper Leg, L Lower Leg (including foot), R Lower Leg (including foot), Chest, Abdomen, Buttocks, Perineal Area Shower/Bathe Self (QC): 3 Upper Body Dressing (QC): 2 Lower Body Dressing (QC): 2 On/Off Footwear: 2 Other Treatment Pt propelled w/c 1/2 way to therapy gym with min A and verbal cues to look to the left. Pt has demonstrated increased L side awareness. In supine, pt able to complete L UE movement with AAROM for correct positioning and decreasing compensatory patterns. PT/OT co-treat ([id number]), skills of 2 clinicians to increase dynamic balance during sitting, increased functional mobility and decrease fall risk. PT focusing on sitting balance while OT focusing on L UE AROM, visual scanning toward L side. Pt able to reach and grasp cones with L UE with L shldr at 90* then to cross midline to place in designated area, 5x's each side. After session, pt left in care of PT. All needs met. OT Short Term Goals Short Term Goals Time Frame: May 11, 2021 Shower/bathe self: 3 Upper body dressin Lower body dressin Putting on/taking off footwear: 3 OT Intermediate Goals Intermediate Goals Time Frame: Jun 01, 2021 Eating (QC): 5 Oral Hygiene (QC): 5 Toileting Hygiene (QC): 4 Shower/Bathe Self (QC): 4 Upper Body Dressing (QC): 5 Lower Body Dressing (QC): 4 On/Off Footwear (QC): 4 Additional Goals: 1-Demonstrate ADL Tasks, 2-Verbalize Understanding, 3- ImproveStrength/Jose Carlos 1=Demonstrate adherence to instructed precautions during ADL tasks. 2=Patient will verbalize/demonstrate understanding of assistive devices/modifications for ADL. 3=Patient will improve strength/tolerance for activity to enable patient to perform ADL's. OT Education/Plan Problem List/Assessment Assessment: Decreased Activ Tolerance, Decreased Safety Aware, Decreased UE Strength, Impaired Bed Mobility, Impaired Coordination, Impaired Funct Balance, Impaired I ADL's, Impaired Self-Care Skills, Restricted Funct UE ROM, Visual- Perceptual Deficit (L visual field cut) Discharge Recommendations Plan/Recommendations: Continue POC Equpiment Recommendations-D/C: Bath Chair Treatment Plan/Plan of Care Patient would benefit from OT for education, treatment and training to promote independence in ADL's, mobility, safety and/or upper extremity function for ADL's. Plan of Care: ADL Retraining, Functional Mobility, Group Exercise/Act as Ind, UE Funct Exercise/Act Treatment Duration: Jun 01, 2021 Frequency: At least 5 of 7 days/Wk (IRF) Estimated Hrs Per Day: 1.5 hours per day Agreement: Yes Rehab Potential: Fair Time/GCodes Start Time: 10:00 Stop Time: 11:15 Total Time Billed (hr/min): 75 Billed Treatment Time 1 visit-ADL 3 (45 min) NM 2 (30 min) co-treat with PT [id number], individual [id number] AAKASH HODGES May 07, 2021 11:28
--- NOTE | 2021-05-07 11:56 | Physical Therapy Daily Note ---
PT Daily Note-Current Subjective Patient in therapy gym pre tx, agrees to PT, has no complaints of pain. Will be co-treating with OT due to poor balance, endurance, work on more advanced scanning and reaching activity. Appearance Patient in bed post tx with nurse call, phone, tray, all needs met, bed alarm on. Mental Status Patient Orientation: Person, Place, Situation Transfers SCALE: Activities may be completed with or without assistive devices. 5-Fbhetwvbwu-tnymwvg completes the activity by him/herself with no assistance from a helper. 5-Set-up or Clean-up Assistance-helper sets up or cleans up; patient completes activity. [place] assists only prior to or following the activity. 4-Supervision or Touching Assistance-helper provides verbal cues and/or touc lis/steadying and/or contact guard assistance as patient completes activity. Assistance may be provided throughout the activity or intermittently. 3-Partial/Moderate Assistance-helper does LESS THAN HALF the effort. [place] lifts, holds or supports trunk or limbs, but provides less than half the effort. 2-Substantial/Maximal Assistance-helper does MORE THAN HALF the effort. [place] lifts or holds trunk or limbs and provides more than half the effort. 8-Mjjxqnhis-cadwty does ALL the effort. Patient does none of the effort to complete the activity. Or, the assistance of 2 or more helpers is required for the patient to complete the activity. If activity was not attempted, code reason: 7-Patient Refused. 9-Not Applicable-not attempted and the patient did not perform the activity before the current illness, exacerbation or injury. 10-Not Attempted due to Environmental Limitations-(lack of equipment, weather restraints, etc.). 88-Not Attempted due to Medical Conditions or Safety Concerns. Roll Left & Right (QC): 6 Sit to Lying (QC): 3 Sit to Stand (QC): 4 Chair/Qvx-sg-Ouohe Xfer(QC): 4 Min assist for sit to supine, needs assist getting his left leg into bed. CGA for sit to stand and transfers Gait Training Distance: 200', 120' Walk 10 feet (QC): 3 Walk 50 ft with 2 Turns(QC): 3 Walk 150 ft (QC): 3 Gait Persons Needed: 1 Gait Assistive Device: Handheld Assist min assist for balance, cues for direction and obstacles Exercises Standing: Hip Abduction, Heel/toe raises, Marching, Mini squats LAQ alternating for 5 min, seated activity scanning to left and reaching for cones, balance activity grabbing cones and turning and ambulating place cones on another surface (work on scanning and balance and turning) NuStep Minutes: 15 NuStep Workload: 5 Treatments bed mobility and transfers, ambulation, balance and scanning activity, LE strengthening. co-treated with OT for 15 min during scanning and reaching for cone activity Assessment Current Status: Fair Progress Patient still fatigues quickly and needs frequent rest breaks, very tired, yawns continually during tx. PT Short Term Goals Short Term Goals Time Frame: May 08, 2021 Roll Left & Right: 4 Sit to lyin (Cynthia) Lying to sitting on side of be: 3 (Cynthia) Sit to stand: 3 (Cynthia) Chair/vjq-sv-pvvjv transfer: 3 (Cynthia) Walk 10 feet: 3 (Cynthia) Walk 50 feet with two turns: 3 (Cynthia) PT Skilled Nursing Goals Skilled Nursing Goals PT Skilled Nursing Goals Time Frame: May 22, 2021 Roll Left & Right (QC): 6 Sit to Lying (QC): 4 (SBA) Lying-Sitting on Side/Bed(QC): 4 (SBA) Sit to Stand (QC): 4 (SBA) Chair/Aop-nb-Htqav Xfer(QC): 4 (SBA) Toilet Transfer (QC): 4 (SBA) Car Transfer (QC): 4 (SBA) Does the Patient Walk: Yes Walk 10 feet (QC): 4 (CGA) Walk 50ft with 2 Turns (QC): 4 (CGA) Walk 150 ft (QC): 88 Walking 10ft on Uneven Surface: 4 (CGA) 1 Step (curb) (QC): 4 (CGA) 4 Steps (QC): 4 (CGA) 12 Steps (QC): 88 Picking up an Object (QC): 88 Wheel 50 feet with 2 turns (QC: 5 Wheel 150 feet: 5 PT Plan Problem List Problem List: Activity Tolerance, Functional Strength, Safety, Balance, Gait, Transfer, Bed Mobility, ROM Treatment/Plan Treatment Plan: Continue Plan of Care Treatment Plan: Bed Mobility, Education, Functional Activity Jose Carlos, Functional Strength, Group Therapy, Gait, Safety, Therapeutic Exercise, Transfers Treatment Duration: May 22, 2021 Frequency: At least 5 of 7 days/Wk (IRF) Estimated Hrs Per Day: 1.5 hours per day Patient and/or Family Agrees t: Yes Safety Risks/Education Patient Education: Gait Training, Transfer Techniques, Correct Positioning, Safety Issues Teaching Recipient: Patient Teaching Methods: Demonstration, Discussion Response to Teaching: Reinforcement Needed Time/GCodes Time In: 1100 Time Out: 1200 Total Billed Treatment Time: 60 Total Billed Treatment 1 visit GT 15' EX 45' FELIZ GRIMM PT May 07, 2021 11:56
--- NOTE | 2021-05-07 12:30 | Consultation - Surgery ---
MARTHA NOLASCO 05/07/21 1230: History of Present Illness History of Present Illness Patient Consulted On(tristin/time) 05/07/21 12:25 Date Seen by Provider: May 07, 2021 Time Seen by Provider: 12:25 History of Present Illness Consult ordered by Dr. Garcia. Patient is an 80 year old male consulted for GERD issues. Patient states he has had a hiatal hernia diagnosed over 25 years ago. Patient last had an EGD 5 years ago and esophageal dilations 2 years ago. Patient states his reflux hasn't been bothering that much, but he had to take a tums while I was in the room, and elevate his legs to help with the reflux. Patient states the only way he can sleep is in a reclined position, otherwise the reflux bothers him too much. Patient feels like food gets stuck in the epigastric region and cannot swallow pills that are not enteric coated. Patient states the acid reflux feels like it is in the epigastric region as well. Patient stated that if Dr. Garcia and Dr. Vaughn saw it pertinent he would under EGD as he has had these in the past and they did not bother him too much. Patient denies vomiting has had intermittent bouts of nausea. Patient denies constipation, abdominal pain, fever, chills, SOB. Patient is in the hospital for a CVA, underwent a Carotid endarterectomy on the right. Allergies and Home Medications Allergies Coded Allergies: aloe vera (Verified Allergy, Unknown, 05/01/21) cephalexin (Verified Allergy, Unknown, 05/01/21) influenza virus vaccine ts [id number] (36 mos,up) (Verified Allergy, Unknown, 05/01/21) Home Medications Amlodipine Besylate 5 Mg Tablet, 5 MG PO DAILY, (Reported) Last Action: Continued Aspirin 81 Mg Tablet.dr, 81 MG PO DAILY, (Reported) Last Action: Continued Atorvastatin Calcium 80 Mg Tablet, 80 MG PO HS, (Reported) Last Action: Continued Cholecalciferol (Vitamin D3) 125 Mcg Tablet, 125 MCG PO DAILY, (Reported) Last Action: Reviewed Clopidogrel Bisulfate 75 Mg Tablet, 75 MG PO DAILY, (Reported) Last Action: Continued Garlic 500 Mg Capsule, 500 MG PO DAILY, (Reported) Last Action: Reviewed L. Acidophilus/L.bulgaricus 1 Each Tablet, 1 EACH PO DAILY, (Reported) Last Action: Converted Omega3,5,6,7,9 No.1/[place] Oil 1 Each Capsule, 1 EACH PO DAILY, (Reported) Last Action: Converted Zinc Gluconate 10 Mg Lozenge, 10 MG PO DAILY, (Reported) Last Action: Reviewed Past Aealkzr-Tckdfg-Mkmimn Hx Patient Social History Smoking Status: Former Smoker (Quit in 2001) Alcohol Use?: No Substance type: Caffeine (1 cup of coffee qd; 1 soda.) Have you traveled recently?: Yes Surgeries Surgeries: Gallbladder, Vascular Surgery (Carotid endarterectomy right), Vasectomy Cardiovascular Cardiac Disorders: High Cholesterol, Hypertension Neurological Neurological Disorders: Stroke, TIA Genitourinary Genitourinary Disorders: Prostate Problems Gastrointestinal Gastrointestinal Disorders: Gastroesophageal Reflux, Hiatal Hernia (Doctor in [place] dx'd) Musculoskeletal Musculoskeletal Disorders: Arthritis (knee) HEENT HEENT Disorders: Cataract (cataract surgery bilateral 10 years ago) Family Medical History Significant Family History: Cancer (son passed from lung cancer with mets to brain at 41. Grandfather had skin cancer; father had prostate cancer), Stroke (M other, father, paternal grandparents) Review of Systems-General Constitutional: No chills, No fever EENTM: vision loss (Right eye; has been getting better. peripheral vision still bad. depth perception still an issue. central vision is better); No blurred vision, No double vision, No eye pain Respiratory: No cough, No orthopnea, No short of breath Gastrointestinal: No abdominal pain, No diarrhea; dysphagia (cannot swallow pills.), heartburn, nausea; No vomiting; other (been sleeping at an incline, only way he can get coated) Genitourinary: No decreased output, No dysuria Physical Exam-General Problems Physical Exam Vital Signs Vital Signs - First Documented 05/01/21 13:00 Temp 36.0 Pulse 107 Resp 20 B/P (MAP) 128/58 (81) Pulse Ox 94 O2 Delivery Room Air Capillary Refill : General Appearance: no apparent distress HEENT: PERRL/EOMI Neck: non-tender Respiratory: lungs clear, normal breath sounds, no respiratory distress, no accessory muscle use Cardiovascular: regular rate, rhythm Gastrointestinal: normal bowel sounds, non tender, soft Extremities: no pedal edema, no calf tenderness, normal capillary refill Neurologic/Psychiatric: alert, oriented x 3 Skin: normal color, warm/dry, ecchymosis (left forearm) Data Review Labs Laboratory Tests 05/07/21 05:34: White Blood Count 7.3, Red Blood Count 3.72L, Hemoglobin 10.9L, Hematocrit 32L, Mean Corpuscular Volume 87, Mean Corpuscular Hemoglobin 29, Mean Corpuscular Hemoglobin Concent 34, Red Cell Distribution Width 13.1, Platelet Count 296, Mean Platelet Volume 9.5, Immature Granulocyte % (Auto) 1, Neutrophils (%) (Auto) 60, Lymphocytes (%) (Auto) 28, Monocytes (%) (Auto) 8, Eosinophils (%) (Auto) 3, Basophils (%) (Auto) 1, Neutrophils # (Auto) 4.4, Lymphocytes # (Auto) 2.0, Monocytes # (Auto) 0.6, Eosinophils # (Auto) 0.2, Basophils # (Auto) 0.0, Immature Granulocyte # (Auto) 0.1, Percent Immature Platelet Fraction 2.2, Sodium Level 138, Potassium Level 3.5L, Chloride Level 104, Carbon Dioxide Level 24, Anion Gap 10, Blood Urea Nitrogen 10, Creatinine 0.95, Estimat Glomerular Filtration Rate 76, BUN/Creatinine Ratio 11, Glucose Level 99, Calcium Level 8.7, Corrected Calcium 9.3, Total Bilirubin 0.5, Aspartate Amino Transf (AST/SGOT) 48H, Alanine Aminotransferase (ALT/SGPT) 47, Alkaline Phosphatase 76, Total Protein 6.4, Albumin 3.2 Microbiology 05/01/21 Urine Culture - Final, Complete NO GROWTH Assessment/Plan Assessment/Plan Assessment/Plan Assessment: GERD with possible hiatal hernia S/P right carotid endarectomy 04-27-21 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 Had not been taking anything prior for reflux. Taking tums on occasion. Patient known hiatal hernia and history of dilations. Patient has not had much issues with reflux since being started on Protonix. He is tolerating diet at this time. He had stroke that has left him with left arm weakness and some slight difficulty ambulating, but improving. Had right CEA. Dysphagia is seeming to get better. Pain in the epigastric area at times with eating drinks and can get it down. Denies n/v fever sweats chills shortness of breath or chest pain. Allergies and Home Medications Allergies Coded Allergies: aloe vera (Verified Allergy, Unknown, 05/01/21) cephalexin (Verified Allergy, Unknown, 05/01/21) influenza virus vaccine ts [id number] (36 mos,up) (Verified Allergy, Unknown, 05/01/21) Home Medications Amlodipine Besylate 5 Mg Tablet, 5 MG PO DAILY, (Reported) Last Action: Continued Aspirin 81 Mg Tablet.dr, 81 MG PO DAILY, (Reported) Last Action: Continued Atorvastatin Calcium 80 Mg Tablet, 80 MG PO HS, (Reported) Last Action: Continued Cholecalciferol (Vitamin D3) 125 Mcg Tablet, 125 MCG PO DAILY, (Reported) Last Action: Reviewed Clopidogrel Bisulfate 75 Mg Tablet, 75 MG PO DAILY, (Reported) Last Action: Continued Garlic 500 Mg Capsule, 500 MG PO DAILY, (Reported) Last Action: Reviewed L. Acidophilus/L.bulgaricus 1 Each Tablet, 1 EACH PO DAILY, (Reported) Last Action: Converted Omega3,5,6,7,9 No.1/[place] Oil 1 Each Capsule, 1 EACH PO DAILY, (Reported) Last Action: Converted Zinc Gluconate 10 Mg Lozenge, 10 MG PO DAILY, (Reported) Last Action: Reviewed Patient Home Medication List Home Medication List Reviewed: Yes Past Kkxnxke-Ikspex-Okcrey Hx Surgeries Surgeries: Vascular Surgery (Carotid endarterectomy right) Reviewed Nursing Assessment Reviewed/Agree w Nursing PMH: Yes Review of Systems-General Constitutional: No chills, No fever EENTM: No ear pain, No double vision, No eye pain Respiratory: No cough, No orthopnea, No short of breath Gastrointestinal: No abdominal pain, No diarrhea; dysphagia (cannot swallow pills.), heartburn; No nausea, No vomiting; other (been sleeping at an incline, only way he can get coated) Genitourinary: No decreased output, No dysuria Musculoskeletal: No back pain; muscle weakness (left upper extremity) Skin: No change in color, No change in hair/nails Psychiatric/Neurological: Denies Anxiety, Denies Depressed, Denies Emotional Problems All Other Systems Reviewed Negative Unless Noted: Yes (Negative excepted noted.) Physical Exam-General Problems Physical Exam General Appearance: WD/WN, no apparent distress HEENT: PERRL/EOMI, normal ENT inspection Neck: non-tender, other (right neck incision c/d/i) Respiratory: chest non-tender, no respiratory distress, no accessory muscle use Cardiovascular: regular rate, rhythm, no JVD Gastrointestinal: non tender, soft Rectal: deferred Back: no vertebral tenderness Extremities: no pedal edema, no calf tenderness Neurologic/Psychiatric: alert, oriented x 3, motor weakness (left upper extremity) Skin: normal color, warm/dry, ecchymosis (left forearm) Lymphatic: no adenopathy Assessment/Plan Assessment/Plan Assessment/Plan GERD dysphagia hiatal hernia antiplatelet therarpy S/P right carotid endarectomy 04-27-21 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 Would get UGI to further evaluate, may not be possible to be done here to due to equipment being out of service, may be able to arrange at outside facility. Would continue on Protonix and add Pepcid. Diet as tolerates. Continue therapy. Supervisory-Addendum Brief Verification & Attestation Participated in pt care: history, MDM, physical Personally performed: exam, history, MDM, supervision of care Care discussed with: Medical Student Procedures: n/a Results interpretation: Verified all documentation Verification and Attestation of Medical Student E/M Service A medical student performed and documented this service in my presence. I reviewed and verified all information documented by the medical student and made modifications to such information, when appropriate. I personally performed the physical exam and medical decision making. Dann Vaughn, May 07, 2021,20:22 MARTHA NOLASCO May 07, 2021 12:30 DANN VAUGHN DO May 07, 2021 19:58
--- NOTE | 2021-05-07 12:58 | Progress Note ---
LOLA SILVA 05/07/21 1258: Progress Note 80yo M with LUE and LLE weakness and debility after a stroke post right carotid enderterectomy (04/27/2021) by Dr. Arias. Pt states that he still has some weakness on his left side and still has a slight L sided facial droop. Pt seems fatigued and complains of sore throat and cough from "swallowing all those pi lls." Pt with PMH of GERD also reports some abdominal pain and consulted surgery for EGD. Denies chest pain, fever, vomiting, or diarrhea. Speech therapy will change diet. Estimated time left in rehab 0.5-1wk due to planned egd. ANABEL CABELLO DO 05/08/21 0602: Supervisory-Addendum Brief Verification & Attestation Participated in pt care: history, MDM, physical Personally performed: exam, history, MDM, supervision of care Care discussed with: Medical Student Procedures: n/a Results interpretation: Verified all documentation Verification and Attestation of Medical Student E/M Service A medical student performed and documented this service in my presence. I reviewed and verified all information documented by the medical student and made modifications to such information, when appropriate. I personally performed the physical exam and medical decision making. Anabel Cabello, May 08, 2021,06:02 LOLA SILVA May 07, 2021 12:58 ANABEL CABELLO DO May 08, 2021 06:02
--- NOTE | 2021-05-07 14:18 | Physical Therapy Daily Note ---
PT Daily Note-Current Subjective Patient in bed pre tx, agrees to PT, has no complaints of pain. Appearance Patient in bed post tx with nurse call, phone, tray, all needs met, bed alarm on. Mental Status Patient Orientation: Person, Place, Situation Transfers SCALE: Activities may be completed with or without assistive devices. 2-Bdpzbwhkea-oydhgui completes the activity by him/herself with no assistance from a helper. 5-Set-up or Clean-up Assistance-helper sets up or cleans up; patient completes activity. [place] assists only prior to or following the activity. 4-Supervision or Touching Assistance-helper provides verbal cues and/or touching/steadying and/or contact guard assistance as patient completes activity. Assistance may be provided throughout the activity or intermittently. 3-Partial/Moderate Assistance-helper does LESS THAN HALF the effort. [place] lifts, holds or supports trunk or limbs, but provides less than half the effort. 2-Substantial/Maximal Assistance-helper does MORE THAN HALF the effort. [place] lifts or holds trunk or limbs and provides more than half the effort. 2-Gfmkuypza-zudpbx does ALL the effort. Patient does none of the effort to complete the activity. Or, the assistance of 2 or more helpers is required for the patient to complete the activity. If activity was not attempted, code reason: 7-Patient Refused. 9-Not Applicable-not attempted and the patient did not perform the activity before the current illness, exacerbation or injury. 10-Not Attempted due to Environmental Limitations-(lack of equipment, weather restraints, etc.). 88-Not Attempted due to Medical Conditions or Safety Concerns. Roll Left & Right (QC): 6 Sit to Lying (QC): 3 Lying to Sitting/Side of Bed(Q: 6 Sit to Stand (QC): 4 Chair/Ekt-ow-Cuvey Xfer(QC): 4 Gait Training Distance: 150'x2 Walk 10 feet (QC): 3 Walk 50 ft with 2 Turns(QC): 3 Walk 150 ft (QC): 3 Gait Persons Needed: 1 Gait Assistive Device: Cane Single Point Min assist for occasional unsteadiness, used a SPC to see if it helped with his balance. Patient certainly used it more effectively than the hemiwalker but balance seemed to be about the same as COMPLETIONS ENGINEER. Patient fatigues with ambulation, needed rest breaks between bouts of ambulation. Patient states he is very tired, yawns continually during tx. Treatments bed mobility and transfers, ambulation Assessment Current Status: Fair Progress improving endurance PT Short Term Goals Short Term Goals Time Frame: May 08, 2021 Roll Left & Right: 4 Sit to lyin (Cynthia) Lying to sitting on side of be: 3 (Cynthia) Sit to stand: 3 (Cynthia) Chair/wua-mj-gkdth transfer: 3 (Cynthia) Walk 10 feet: 3 (Cynthia) Walk 50 feet with two turns: 3 (Cynthia) PT Manager Data Goals Manager Data Goals PT Manager Data Goals Time Frame: May 22, 2021 Roll Left & Right (QC): 6 Sit to Lying (QC): 4 (SBA) Lying-Sitting on Side/Bed(QC): 4 (SBA) Sit to Stand (QC): 4 (SBA) Chair/Ipw-bo-Iponj Xfer(QC): 4 (SBA) Toilet Transfer (QC): 4 (SBA) Car Transfer (QC): 4 (SBA) Does the Patient Walk: Yes Walk 10 feet (QC): 4 (CGA) Walk 50ft with 2 Turns (QC): 4 (CGA) Walk 150 ft (QC): 88 Walking 10ft on Uneven Surface: 4 (CGA) 1 Step (curb) (QC): 4 (CGA) 4 Steps (QC): 4 (CGA) 12 Steps (QC): 88 Picking up an Object (QC): 88 Wheel 50 feet with 2 turns (QC: 5 Wheel 150 feet: 5 PT Plan Problem List Problem List: Activity Tolerance, Functional Strength, Safety, Balance, Gait, Transfer, Bed Mobility, ROM Treatment/Plan Treatment Plan: Continue Plan of Care Treatment Plan: Bed Mobility, Education, Functional Activity Jose Carlos, Functional Strength, Group Therapy, Gait, Safety, Therapeutic Exercise, Transfers Treatment Duration: May 22, 2021 Frequency: At least 5 of 7 days/Wk (IRF) Estimated Hrs Per Day: 1.5 hours per day Patient and/or Family Agrees t: Yes Safety Risks/Education Patient Education: Gait Training, Transfer Techniques, Correct Positioning, Safety Issues Teaching Recipient: Patient Teaching Methods: Demonstration, Discussion Response to Teaching: Reinforcement Needed Time/GCodes Time In: 1400 Time Out: 1415 Total Billed Treatment Time: 15 Total Billed Treatment 1 visit GT 15' FELIZ GRIMM PT May 07, 2021 14:18
[2021-05-07] MEDS: TAMSULOSIN 0.4 MG (FLOMAX) CAP PO SCH (18:01)
[2021-05-07] MEDS ORDERED: FAMOTIDINE 20 MG (PEPCID) TABLET PO PRN (19:15)
[2021-05-07 20:00] VITALS: BP 138/70
[2021-05-07] MEDS: MELATONIN 3 MG TABLET PO PRN (20:03)
--- NOTE | 2021-05-08 07:44 | Progress Note - Surgery ---
MARTHA NOLASCO 05/08/21 0744: Subjective Date Seen by a Provider: May 08, 2021 Time Seen by a Provider: 07:38 Subjective/Events-last exam Patient states he wasn't bothered by his GERD last night. States that the meds that are crushed up and put in his pudding leave a bad taste in his mouth that he cannot get out. States GERD pain is a 1/10. Patient states urinating and passing stool with no problem. Patient has been up and ambulating with rehab team. No N/V, fever, chills, abdominal pain. Patient began pepcid yesterday, will take with pantoprazole for management of reflux Review of Systems General: No Chills, No Night Sweats HEENT: Head Aches (frontal); No Visual Changes Pulmonary: No Dyspnea, No Cough Cardiovascular: No: Chest Pain, Palpitations Gastrointestinal: No: Nausea, Vomiting, Abdominal Pain, Constipation Genitourinary: No Dysuria, No Incontinence Musculoskeletal: foot pain (on left big toe from in grown toe nail removal) Objective Exam Vital Signs Date Time Temp Pulse Resp B/P (MAP) Pulse Ox O2 Delivery O2 Flow Rate FiO2 05/07/21 20:30 Room Air 05/07/21 20:00 37.3 73 18 138/70 (92) 95 Room Air 05/07/21 09:00 Room Air 05/07/21 07:51 36.2 83 16 122/63 (82) 96 Room Air Capillary Refill : General Appearance: No Apparent Distress, WD/WN, Chronically ill HEENT: PERRL/EOMI, Normal ENT Inspection, Pharynx Normal Neck: Full Range of Motion, Normal Inspection, Non Tender, Supple, Carotid Bruit Respiratory: Chest Non Tender, Lungs Clear, Normal Breath Sounds, No Accessory Muscle Use, No Respiratory Distress Cardiovascular: Regular Rate, Rhythm, Normal Peripheral Pulses Gastrointestinal: non tender, soft Extremity: Normal Capillary Refill, Non Tender, No Calf Tenderness, No Pedal Edema Neurologic/Psychiatric: Alert, Oriented x3, Normal Mood/Affect, Motor Weakness (Left-sided weakness upper and lower extremities) Skin: Normal Color, Warm/Dry Lymphatic: No Adenopathy Results Lab Microbiology 05/01/21 Urine Culture - Final, Complete NO GROWTH Assessment/Plan Assessment/Plan Assessment/Plan GERD dysphagia hiatal hernia antiplatelet therarpy S/P right carotid endarectomy 04-27-21 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 Would get UGI to further evaluate, may not be possible to be done here to due to equipment being out of service, may be able to arrange at outside facility. Would continue on Protonix and Pepcid. Diet as tolerates. Continue therapy. DANN UMANA DO 05/08/211931: Subjective Subjective/Events-last exam Feeling well today. Reflux last night well controlled. No reflux symptoms. Swallowing okay today. No issues with food getting stuck. No n/v. Denies fever sweats chills shortness of breath or chest pain. Objective Exam General Appearance: No Apparent Distress, Chronically ill HEENT: PERRL/EOMI, Normal ENT Inspection Neck: Normal Inspection, Non Tender Respiratory: Chest Non Tender, No Accessory Muscle Use, No Respiratory Distress Cardiovascular: Regular Rate, Rhythm, No JVD Gastrointestinal: non tender, soft, no organomegaly Extremity: Non Tender, No Calf Tenderness Neurologic/Psychiatric: Alert, Oriented x3, Normal Mood/Affect, Motor Weakness (Left-sided weakness upper and lower extremities) Skin: Normal Color, Warm/Dry Lymphatic: No Adenopathy Assessment/Plan Assessment/Plan Assessment/Plan GERD dysphagia hiatal hernia antiplatelet therarpy S/P right carotid endarectomy 04-27-21 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 Continue on protonix/pepcid. Since on antiplatelet would not scope at this time. Can not get UGI to further evaluate at this time, will arrange outpatient. When can come off of antiplatelets will consider egd and depending on UGi. Will sign off at this time Please call if needed. Supervisory-Addendum Brief Verification & Attestation Participated in pt care: history, MDM, physical Personally performed: exam, history, MDM, supervision of care Care discussed with: Medical Student Procedures: n/a Results interpretation: Verified all documentation Verification and Attestation of Medical Student E/M Service A medical student performed and documented this service in my presence. I reviewed and verified all information documented by the medical student and made modifications to such information, when appropriate. I personally performed the physical exam and medical decision making. Dann Umana, May 08, 2021,19:35 MARTHA NOLASCO May 08, 2021 07:44 DANN UMANA DO May 08, 2021 19:32
[2021-05-08 08:00] VITALS: BP 138/62
--- NOTE | 2021-05-08 08:50 | Speech Therapy Daily Note ---
Speech Daily Progress Note Subjective Date Seen by Provider: May 08, 2021 Time Seen by Provider: 00:30 Patient was resting in bed and states he didn't rest well at all last night. Objective Patient tolerating his upgrade to regular diet level without s/s of aspiration at 90%. Assessment Assessment Current Status: Good Progress Treatment Plan Continue Plan of Care Speech Short Term Goals Short Term Goals Short Term Goals 1) Patient will tolerate least restrictive diet level without s/s of aspiration at 90% or greater. 2) Patient will utilize compensatory strategies for safe oral intake at 90% or greater with minimal cues. Speech Intermediate Goals [place] Supervisor Goals Patient will maintain adequate nutrition/hydration via safe effective swallow function. Speech-Plan Patient/Family Goals Patient/Family Goals: Patient plans on returning to his home with his upon discharge. Treatment Plan Speech Therapy Treatment Plan: Continue Plan of Care Treatment Duration: May 18, 2021 Frequency: 4 times per week (Patient will receive skilled ST 4-5x per week) Estimated Hrs Per Day: .5 hour per day Rehab Potential: Fair Barriers to Learning: None identified Pt/Family Agrees to Plan: Yes Safety Risks/Education Teaching Recipient: Patient Teaching Methods: Demonstration, Discussion Response to Teaching: Verbalize Understanding, Return Demonstration Education Topics Provided: Continued safety strategies with oral intake of regular diet as trained Time Speech Therapy Time In: 08:30 Speech Therapy Time Out: 09:00 Total Billed Time: 30 Billed Treatment Time 1, SLTS No QUALITY CODES EXPRESSION OF IDEAS/WANTS: 4 UNDERSTANDING VERBAL CONTENT: 4 BRIEF INTERVIEW MENTAL STATUS: YES REPETITION OF 3 WORDS: 3 TEMPORAL ORIENTATION: YEAR: CORRECT, MONTH: CORRECT, DAY: CORRECT RECALL: SOCK: YES, COLOR: YES WITH CUE, BED: YES WITH CUE MEMORY/RECALL ABILITY: SEASON, LOCATION OF ROOM, STAFF NAMES, THAT HE IS IN THE [facility] May 08, 2021 08:50
[2021-05-08] MEDS: amLODIPine 5 MG (NORVASC) TAB PO SCH (09:28)
[2021-05-08] MEDS: CLOPIDOGREL 75 MG (PLAVIX) TABLET PO SCH (09:28)
[2021-05-08] MEDS: ASPIRIN E.C. 81 MG (ECOTRIN) TAB PO SCH (09:28)
[2021-05-08] MEDS: DOCUSATE SODIUM 100 MG (COLACE) CAP PO SCH ×2 (09:28→20:13)
[2021-05-08] MEDS: OMEGA 3 (FISH OIL) 1000 MG CAP PO SCH (09:28)
[2021-05-08] MEDS: PANTOPRAZOLE 40 MG (PROTONIX) TAB PO SCH ×2 (09:28→20:13)
[2021-05-08] MEDS: LACTOBACILLUS ACIDOPHILUS (PROBIOTIC) CAPSULE PO SCH (09:28)
[2021-05-08] MEDS: SENNA W/DOCUSATE (SENOKOT S) TABLET PO SCH ×2 (09:29→20:13)
[2021-05-08] MEDS: polyethylene glycoL POWDER 17 GM (MIRALAX) PACK PO SCH ×2 (09:41→20:05)
--- NOTE | 2021-05-08 09:56 | PM&R Progress Note ---
Subjective HPI/CC On Admission Date Seen by Provider: May 08, 2021 Time Seen by Provider: 10:00 Subjective/Events-last exam 05/08/2021: Pt walking with a cane and a gait belt Left side neglect is noted Vision is improved Barium swallow will need to be done on the Pt as an outpatient Fish oil will be changed to bunny red per his home dose 05/07/2021: Pt doing pretty well but having things stuck in his throat He has had multiple EGDs and stretching before so will have Dr. Umana see him Multiple somatic complaints 05/06/2021: Patient doing really well today Bowels moved today Eating a bit more We will have speech therapy change diet 05/05/2021: Patient doing really well Seems to have little confidence Discontinue Carafate due to side effects Incision looks good on the right carotid Voiding well Bowels are moving 05/04/2021: Pt doing pretty well Walked in the halls Bowels moving a little bit now Urination doing pretty well 05/03/2021: Pt doing pretty well Cystoscope done and now voiding well DC Bactrim since he is having difficulty swallowing GERD issues continue Proton pump inhibitor and Carafate maintained Will have a suppository if bowels have not moved later 05/02/2021: Pt doing pretty well Became tearful a bit today No BM since 04/27 so laxatives given Nausea a bit last night Dr. Valencia saw him and will perform a cystoscopy tomorrow Dysphasia noted Left arm is tingling so hopefully we will regain some function Review of Systems General: Fatigue HEENT: Dysphasia Neurological: Weakness, Incoordination Objective Exam Vital Signs Vital Signs Date Time Temp Pulse Resp B/P (MAP) Pulse Ox O2 Delivery O2 Flow Rate FiO2 05/08/21 20:00 Room Air 05/08/21 20:00 37.4 72 18 119/63 (81) 96 Capillary Refill : General Appearance: No Apparent Distress, WD/WN, Chronically ill HEENT: PERRL/EOMI, Normal ENT Inspection, Pharynx Normal Neck: Full Range of Motion, Normal Inspection, Non Tender, Supple, Carotid Bruit Respiratory: Chest Non Tender, Lungs Clear, Normal Breath Sounds, No Accessory Muscle Use, No Respiratory Distress Cardiovascular: Regular Rate, Rhythm, Normal Peripheral Pulses Gastrointestinal: Normal Bowel Sounds, No Organomegaly, No Pulsatile Mass, Non Tender, Soft Back: Normal Inspection, No CVA Tenderness, No Vertebral Tenderness Extremity: Normal Capillary Refill, Non Tender, No Calf Tenderness, No Pedal Edema Neurologic/Psychiatric: Alert, Oriented x3, Normal Mood/Affect, Motor Weakness (Left-sided weakness upper and lower extremities) Skin: Normal Color, Warm/Dry Lymphatic: No Adenopathy Results/Procedures Lab Patient resulted labs reviewed. FIM Transfers Therapy Code Descriptions/Definitions Functional [place] Measure: 0=Not Assessed/NA 4=Minimal Assistance 1=Total Assistance 5=Supervision or Setup 2=Maximal Assistance 6=Modified [place] 3=Moderate Assistance 7=Complete IndependenceSCALE: Activities may be completed with or without assistive devices. 5-Wgbqndvjkb-yndsrxf completes the activity by him/herself with no assistance from a helper. 5-Set-up or Clean-up Assistance-helper sets up or cleans up; patient completes activity. [place] assists only prior to or following the activity. 4-Supervision or Touching Assistance-helper provides verbal cues and/or touching/steadying and/or contact guard assistance as patient completes activity. Assistance may be provided throughout the activity or intermittently. 3-Partial/Moderate Assistance-helper does LESS THAN HALF the effort. [place] lifts, holds or supports trunk or limbs, but provides less than half the effort. 2-Substantial/Maximal Assistance-helper does MORE THAN HALF the effort. [place] lifts or holds trunk or limbs and provides more than half the effort. 3-Kgmqcktlz-sfoilw does ALL the effort. Patient does none of the effort to complete the activity. Or, the assistance of 2 or more helpers is required for the patient to complete the activity. If activity was not attempted, code reason: 7-Patient Refused. 9-Not Applicable-not attempted and the patient did not perform the activity before the current illness, exacerbation or injury. 10-Not Attempted due to Environmental Limitations-(lack of equipment, weather restraints, etc.). 88-Not Attempted due to Medical Conditions or Safety Concerns. Roll Left to Right (QC): 6 Sit to Lying (QC): 3 Sit to Stand (QC): 4 Chair/Iej-ht-Adkgv Xfer(QC): 4 Car Transfer (QC): 3 Gait Training Does the Patient Walk?: Yes Distance: 150'x2 Walk 10 feet (QC): 3 Walk 50 ft with 2 Turns(QC): 3 Walk 150 ft (QC): 3 Walking 10ft/uneven surface-QC: 88 Gait Persons Needed: 1 Gait Assistive Device: Cane Single Point Wheelchair Training Does the Pt Use a Wheelchair?: Yes Distance: 400' Wheel 50 ft with 2 turns (QC): 3 Wheel 150 ft (QC): 3 Type of Wheelchair: Manual Stair Training 1 Step (curb) (QC): 88 4 Steps (QC): 88 12 Steps (QC): 88 Balance Picking up an Object (QC): 88 ADL-Treatment Eating (QC): 4 (Supervision and set up due to visual field cut, pt is not scanning toward L side and requires reminders to find food and utensils on L side.) Oral Hygiene (QC): 3 Bathing Location: L Arm, R Arm, L Upper Leg, R Upper Leg, L Lower Leg (including foot), R Lower Leg (including foot), Chest, Abdomen, Buttocks, Perineal Area Shower/Bathe Self (QC): 3 Upper Body Dressing (QC): 2 Lower Body Dressing (QC): 2 On/Off Footwear (QC): 2 Toileting Hygiene (QC): 2 Toilet Transfer (QC): 3 Assessment/Plan Assessment and Plan Assess & Plan/Chief Complaint Assessment: S/P right carotid endarectomy 04-27-21 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 Umana Plan: Aggressive therapy Urology consult Monitor closely 05/02/2021: Appreciate urology Cystoscopy tomorrow Bowel regimen 05/03/2021: Status post cystoscopy Voiding well now DC Bactrim 05/04/2021: Much improved Moving around much better Monitor bowel function 05/05/2021: Supportive care Ambulating well 05/06/2021: Supportive care Monitor closely 05/07/2021: Dr. Umana appreciated Dysphagia management 05/08/2021: Monitor closely Dysphagia management (1) CVA (cerebral vascular accident) GUILLERMO CABELLO DO May 08, 2021 09:56
[2021-05-08] MEDS ORDERED: PATIENT MAY USE OWN MED,SINGLE MED PO SCH (10:00)
--- NOTE | 2021-05-08 10:20 | Occupational Ther Daily Note ---
OT Current Status-Daily Note Subjective Pt alert, lying in bed. Took over care from BINDING NICKER. Pt c/o fatigue due to not sleeping last night. Pt agrees to therapy. Mental Status/Objective Patient Orientation: Person, Place, Time, Situation ADL-Treatment Pt declines shower. Pt able to roll toward L side after education on sequencing roll. Supine <--> sitting EOB completed with SBA for safety. After set up, pt able to don/doff R/L shoe by sliding foot in/out. Therapy Code Descriptions/Definitions Functional [place] Measure: 0=Not Assessed/NA 4=Minimal Assistance 1=Total Assistance 5=Supervision or Setup 2=Maximal Assistance 6=Modified [place] 3=Moderate Assistance 7=Complete IndependenceSCALE: Activities may be completed with or without assistive devices. 9-Pejbpsclyu-mqexnwb completes the activity by him/herself with no assistance from a helper. 5-Set-up or Clean-up Assistance-helper sets up or cleans up; patient completes activity. [place] assists only prior to or following the activity. 4-Supervision or Touching Assistance-helper provides verbal cues and/or t ouching/steadying and/or contact guard assistance as patient completes activity. Assistance may be provided throughout the activity or intermittently. 3-Partial/Moderate Assistance-helper does LESS THAN HALF the effort. [place] lifts, holds or supports trunk or limbs, but provides less than half the effort. 2-Substantial/Maximal Assistance-helper does MORE THAN HALF the effort. [place] lifts or holds trunk or limbs and provides more than half the effort. 5-Npiwxghef-xgfnwv does ALL the effort. Patient does none of the effort to complete the activity. Or, the assistance of 2 or more helpers is required for the patient to complete the activity. If activity was not attempted, code reason: 7-Patient Refused. 9-Not Applicable-not attempted and the patient did not perform the activity before the current illness, exacerbation or injury. 10-Not Attempted due to Environmental Limitations-(lack of equipment, weather restraints, etc.). 88-Not Attempted due to Medical Conditions or Safety Concerns. Eating (QC): 5 (Set up required then uses hands or regular utensils to eat.) On/Off Footwear: 5 Other Treatment CGA for SPT from surface to surface, verbal cues to check foot position prior to standing. Pt uses R UE and B LE to propel w/c from room to therapy gym with verbal cues on when to turn toward L. Pt is improving with vision. Pt demonstrates increased movement, functional assist and spontaneous use of L UE. Pt continues to work on control and strength over gross motor movements with L UE. E-stim used for L wrist extension, trace movements noted and with e-stim pt able to reach neutral. Pt able to lean toward L side and keep L UE in place for wt bearing, 10x's then went to R side 10x's. Pt required recovery break after due to dizziness. After session, pt lying in bed with call light/phone in reach. All needs met in room. OT Short Term Goals Short Term Goals Time Frame: May 11, 2021 Shower/bathe self: 3 Upper body dressin Lower body dressin Putting on/taking off footwear: 3 OT Fondant Cooker Goals Fdc Goals Time Frame: Jun 01, 2021 Eating (QC): 5 Oral Hygiene (QC): 5 Toileting Hygiene (QC): 4 Shower/Bathe Self (QC): 4 Upper Body Dressing (QC): 5 Lower Body Dressing (QC): 4 On/Off Footwear (QC): 4 Additional Goals: 1-Demonstrate ADL Tasks, 2-Verbalize Understanding, 3- ImproveStrength/Jose Carlos 1=Demonstrate adherence to instructed precautions during ADL tasks. 2=Patient will verbalize/demonstrate understanding of assistive devices/modifications for ADL. 3=Patient will improve strength/tolerance for activity to enable patient to perform ADL's. OT Education/Plan Problem List/Assessment Assessment: Decreased Activ Tolerance, Decreased UE Strength, Impaired Bed Mobility, Impaired Coordination, Impaired Funct Balance, Impaired I ADL's, Impaired Self-Care Skills, Restricted Funct UE ROM, Visual-Perceptual Deficit Discharge Recommendations Plan/Recommendations: Continue POC Treatment Plan/Plan of Care Patient would benefit from OT for education, treatment and training to promote independence in ADL's, mobility, safety and/or upper extremity function for ADL's. Plan of Care: ADL Retraining, Functional Mobility, Group Exercise/Act as Ind, UE Funct Exercise/Act Treatment Duration: Jun 01, 2021 Frequency: At least 5 of 7 days/Wk (IRF) Estimated Hrs Per Day: 1.5 hours per day Agreement: Yes Rehab Potential: Fair Time/GCodes Start Time: 09:00 Stop Time: 10:15 Total Time Billed (hr/min): 75 Billed Treatment Time 1 visit-ADL 1 (10 min) FA 1 (20 min) NM 3 (45 min) AAKASH HODGES May 08, 2021 10:20
--- NOTE | 2021-05-08 13:06 | Physical Therapy Daily Note ---
PT Daily Note-Current Subjective Pt R sidelying in bed upon arrival. Pt agrees to PT. Pain Location: No Pain Reported Mental Status Patient Orientation: Person, Place, Situation Transfers SCALE: Activities may be completed with or without assistive devices. 8-Ezfgpfszph-pxplbnx completes the activity by him/herself with no assistance from a helper. 5-Set-up or Clean-up Assistance-helper sets up or cleans up; patient completes activity. [place] assists only prior to or following the activity. 4-Supervision or Touching Assistance-helper provides verbal cues and/or touching/steadying and/or contact guard assistance as patient completes activity. Assistance may be provided throughout the activity or intermittently. 3-Partial/Moderate Assistance-helper does LESS THAN HALF the effort. [place] lifts, holds or supports trunk or limbs, but provides less than half the effort. 2-Substantial/Maximal Assistance-helper does MORE THAN HALF the effort. [place] lifts or holds trunk or limbs and provides more than half the effort. 0-Cqkxcdsch-wiznkj does ALL the effort. Patient does none of the effort to complete the activity. Or, the assistance of 2 or more helpers is required for the patient to complete the activity. If activity was not attempted, code reason: 7-Patient Refused. 9-Not Applicable-not attempted and the patient did not perform the activity before the current illness, exacerbation or injury. 10-Not Attempted due to Environmental Limitations-(lack of equipment, weather restraints, etc.). 88-Not Attempted due to Medical Conditions or Safety Concerns. Sit to Lying (QC): 4 Lying to Sitting/Side of Bed(Q: 4 Sit to Stand (QC): 4 Weight Bearing Full Weight Bearing Full Weight Bearing Gait Training Does the Patient Walk?: Yes Distance: 50' x2, 100' Walk 10 feet (QC): 4 Walk 50 ft with 2 Turns(QC): 4 Walk 150 ft (QC): 4 Gait Persons Needed: 1 Gait Assistive Device: Cane Single Point Wheelchair Training Does the Pt Use a Wheelchair?: Yes Type of Wheelchair: Manual Treatments [id number]: Pt is eating his lunch upon arrival so PEARL GLUE DRIER & pt engage in Pt educ. while eating. Pt has good support at home but pt is worried about d/c before he is ready to go home. PEARL GLUE DRIER assures pt that pt has made progress and will continue to make progress while on ARU. SW will set up equipment as necessary for home. Pt transfers to standing and amb. in hallway, taking RB a couple times during amb. Pt returns to room at end of tx with all needs met, call light in hand. Pt resting in R sidelying to get some sleep before afternoon tx. [id number]: Pt is able to complete transfer from bed to EOB w/o assistance. Pt declines needing BR. Pt wants to sit EOB before returning back to bed. All needs met. Assessment Current Status: Good Progress Pt needs VC to slow down while ambulating to ensure better posture/body control. PT Short Term Goals Short Term Goals Time Frame: May 08, 2021 Roll Left & Right: 4 Sit to lyin (Cynthia) Lying to sitting on side of be: 3 (Cynthia) Sit to stand: 3 (Cynthia) Chair/bqg-fz-dcnwx transfer: 3 (Cynthia) Walk 10 feet: 3 (Cynthia) Walk 50 feet with two turns: 3 (Cynthia) PT Oil Burner Goals Oil Burner Goals PT Half-Way Goals Time Frame: May 22, 2021 Roll Left & Right (QC): 6 Sit to Lying (QC): 4 (SBA) Lying-Sitting on Side/Bed(QC): 4 (SBA) Sit to Stand (QC): 4 (SBA) Chair/Mck[place]vi-Mahwi Xfer(QC): 4 (SBA) Toilet Transfer (QC): 4 (SBA) Car Transfer (QC): 4 (SBA) Does the Patient Walk: Yes Walk 10 feet (QC): 4 (CGA) Walk 50ft with 2 Turns (QC): 4 (CGA) Walk 150 ft (QC): 88 Walking 10ft on Uneven Surface: 4 (CGA) 1 Step (curb) (QC): 4 (CGA) 4 Steps (QC): 4 (CGA) 12 Steps (QC): 88 Picking up an Object (QC): 88 Wheel 50 feet with 2 turns (QC: 5 Wheel 150 feet: 5 PT Plan Problem List Problem List: Activity Tolerance, Safety, Gait Treatment/Plan Treatment Plan: Continue Plan of Care Treatment Plan: Bed Mobility, Education, Functional Activity Jose Carlos, Functional Strength, Group Therapy, Gait, Safety, Therapeutic Exercise, Transfers Treatment Duration: May 22, 2021 Frequency: At least 5 of 7 days/Wk (IRF) Estimated Hrs Per Day: 1.5 hours per day Patient and/or Family Agrees t: Yes Safety Risks/Education Patient Education: Gait Training, Correct Positioning, Safety Issues Teaching Recipient: Patient Teaching Methods: Discussion Response to Teaching: Verbalize Understanding Time/GCodes Time In: 1100 Time Out: 1200 Total Billed Treatment Time: 60 Total Billed Treatment [id number]: 1, GT x2 (30m) & FA x2 (30m) [id number]: 1, FA (15m) TAYLA KERNS PEARL GLUE DRIER May 08, 2021 13:06
[2021-05-08] MEDS: TAMSULOSIN 0.4 MG (FLOMAX) CAP PO SCH (17:51)
[2021-05-08 20:00] VITALS: BP 119/63
[2021-05-08] MEDS: MELATONIN 3 MG TABLET PO PRN (20:13)
[2021-05-09] MEDS: HYDROcodone/APAP 5 MG/325 MG (LORTAB) TAB PO PRN ×3 (05:21→15:41)
[2021-05-09] MEDS: MEGA RED PO SCH (07:24)
[2021-05-09] MEDS: ASPIRIN E.C. 81 MG (ECOTRIN) TAB PO SCH (07:24)
[2021-05-09] MEDS: SENNA W/DOCUSATE (SENOKOT S) TABLET PO SCH ×2 (07:24→21:40)
[2021-05-09] MEDS: LACTOBACILLUS ACIDOPHILUS (PROBIOTIC) CAPSULE PO SCH (07:24)
[2021-05-09] MEDS: PANTOPRAZOLE 40 MG (PROTONIX) TAB PO SCH ×2 (07:24→21:00)
[2021-05-09] MEDS: CLOPIDOGREL 75 MG (PLAVIX) TABLET PO SCH (07:24)
[2021-05-09] MEDS: amLODIPine 5 MG (NORVASC) TAB PO SCH (07:25)
[2021-05-09] MEDS: DOCUSATE SODIUM 100 MG (COLACE) CAP PO SCH ×2 (07:25→21:00)
[2021-05-09 08:00] VITALS: BP 126/61
--- NOTE | 2021-05-09 09:56 | Occupational Ther Daily Note ---
OT Current Status-Daily Note Subjective Pt. was alert, relaxing in bed. Pt. had a rough night, didn't sleep well. Pt. agreed to therapy with had no c/o of pain. Mental Status/Objective Patient Orientation: Person, Place, Time ADL-Treatment Pt. set up and SBA for safety in shower. Therapy Code Descriptions/Definitions Functional [place] Measure: 0=Not Assessed/NA 4=Minimal Assistance 1=Total Assistance 5=Supervision or Setup 2=Maximal Assistance 6=Modified [place] 3=Moderate Assistance 7=Complete IndependenceSCALE: Activities may be completed with or without assistive devices. 3-Dqbyhunqvp-rlpfnwq completes the activity by him/herself with no assistance from a helper. 5-Set-up or Clean-up Assistance-helper sets up or cleans up; patient completes activity. [place] assists only prior to or following the activity. 4-Supervision or Touching Assistance-helper provides verbal cues and/or touching/steadying and/or contact guard assistance as patient completes activity. Assistance may be provided throughout the activity or intermittently. 3-Partial/Moderate Assistance-helper does LESS THAN HALF the effort. [place] lifts, holds or supports trunk or limbs, but provides less than half the effort. 2-Substantial/Maximal Assistance-helper does MORE THAN HALF the effort. [place] lifts or holds trunk or limbs and provides more than half the effort. 2-Dyzqdrofz-bhdghm does ALL the effort. Patient does none of the effort to complete the activity. Or, the assistance of 2 or more helpers is required for the patient to complete the activity. If activity was not attempted, code reason: 7-Patient Refused. 9-Not Applicable-not attempted and the patient did not perform the activity before the current illness, exacerbation or injury. 10-Not Attempted due to Environmental Limitations-(lack of equipment, weather restraints, etc.). 88-Not Attempted due to Medical Conditions or Safety Concerns. Oral Hygiene (QC): 4 (Supervision and verbal cues to incorporate L UE functionally during task.) Bathing Location: L Arm, R Arm, L Upper Leg, R Upper Leg, L Lower Leg (including foot), R Lower Leg (including foot), Chest, Abdomen, Buttocks, Perineal Area Upper Body Dressing (QC): 3 (Min. A Pt. required instruction and help threading left arm into arm hole and then cues to continue sequencing until complete.) Lower Body Dressing (QC): 2 (Mod A. needed verbal cue identifying that shorts were on backwards and to switch them around then to pull up L LE. Assist to stand and hike pants over L hip.) OT Short Term Goals Short Term Goals Time Frame: May 11, 2021 Shower/bathe self: 3 Upper body dressin Lower body dressin Putting on/taking off footwear: 3 OT Apprentice Architect Goals Apprentice Architect Goals Time Frame: Jun 01, 2021 Eating (QC): 5 Oral Hygiene (QC): 5 Toileting Hygiene (QC): 4 Shower/Bathe Self (QC): 4 Upper Body Dressing (QC): 5 Lower Body Dressing (QC): 4 On/Off Footwear (QC): 4 Additional Goals: 1-Demonstrate ADL Tasks, 2-Verbalize Understanding, 3- ImproveStrength/Jose Carlos 1=Demonstrate adherence to instructed precautions during ADL tasks. 2=Patient will verbalize/demonstrate understanding of assistive devices/modifications for ADL. 3=Patient will improve strength/tolerance for activity to enable patient to perform ADL's. OT Education/Plan Problem List/Assessment Assessment: Decreased Activ Tolerance, Decreased UE Strength, Impaired Coordination, Impaired Funct Balance, Impaired Self-Care Skills, Restricted Funct UE ROM, Visual-Perceptual Deficit Discharge Recommendations Plan/Recommendations: Continue POC Treatment Plan/Plan of Care Patient would benefit from OT for education, treatment and training to promote independence in ADL's, mobility, safety and/or upper extremity function for ADL's. Plan of Care: ADL Retraining, Functional Mobility, Group Exercise/Act as Ind, UE Funct Exercise/Act Treatment Duration: Jun 01, 2021 Frequency: At least 5 of 7 days/Wk (IRF) Estimated Hrs Per Day: 1.5 hours per day Agreement: Yes Rehab Potential: Fair Time/GCodes Start Time: 09:00 Stop Time: 10:00 Total Time Billed (hr/min): 60 Billed Treatment Time 1 visit-ADL 4 (60 min) AAKASH HODGES May 09, 2021 09:56
[2021-05-09] MEDS: polyethylene glycoL POWDER 17 GM (MIRALAX) PACK PO SCH ×2 (11:56→21:40)
--- NOTE | 2021-05-09 12:27 | Physical Therapy Daily Note ---
PT Daily Note-Current Subjective Pt laying in bed upon arrival. Pt agrees to PT. Pain Location: No Pain Reported Mental Status Patient Orientation: Person, Place, Situation Transfers SCALE: Activities may be completed with or without assistive devices. 9-Qlwpaubxae-ndduuot completes the activity by him/herself with no assistance from a helper. 5-Set-up or Clean-up Assistance-helper sets up or cleans up; patient completes activity. [place] assists only prior to or following the activity. 4-Supervision or Touching Assistance-helper provides verbal cues and/or touching/steadying and/or contact guard assistance as patient completes activity. Assistance may be provided throughout the activity or intermittently. 3-Partial/Moderate Assistance-helper does LESS THAN HALF the effort. [place] lifts, holds or supports trunk or limbs, but provides less than half the effort. 2-Substantial/Maximal Assistance-helper does MORE THAN HALF the effort. [place] lifts or holds trunk or limbs and provides more than half the effort. 3-Sjljzmxhy-ckocjp does ALL the effort. Patient does none of the effort to complete the activity. Or, the assistance of 2 or more helpers is required for the patient to complete the activity. If activity was not attempted, code reason: 7-Patient Refused. 9-Not Applicable-not attempted and the patient did not perform the activity before the current illness, exacerbation or injury. 10-Not Attempted due to Environmental Limitations-(lack of equipment, weather restraints, etc.). 88-Not Attempted due to Medical Conditions or Safety Concerns. Lying to Sitting/Side of Bed(Q: 5 Sit to Stand (QC): 4 Weight Bearing Full Weight Bearing Full Weight Bearing Gait Training Does the Patient Walk?: Yes Distance: 75'x3, 100' Walk 10 feet (QC): 4 Walk 50 ft with 2 Turns(QC): 4 Gait Persons Needed: 1 Gait Assistive Device: Cane Large Base Quad BONDING MACHINE SETTER assists at Min A while ambulating, occasionally needing to be Mod A when pt increases speed and loses body control. Exercises NuStep Minutes: 15 NuStep Workload: 5 Treatments Pt transfers to EOB then stands and amb. after getting his balance. Pt amb. in hallway taking a couple short RB as needed for fatigue. Pt uses NuStep for 15m at WL 5. Pt again walks in hallway, returning to room. Pt declines needing RB but wants to rest EOB to eat lunch. BONDING MACHINE SETTER assists with setup of lunch and opening containers as needed. All needs met, call light in hand. Assessment Current Status: Good Progress Pt is very motivated to get stronger and be more independent. Pt needs occasional VC to slow down for improved body control and balance. PT Short Term Goals Short Term Goals Time Frame: May 08, 2021 Roll Left & Right: 4 Sit to lyin (Cynthia) Lying to sitting on side of be: 3 (Cynthia) Sit to stand: 3 (Cynthia) Chair/ajr-wr-vzpuw transfer: 3 (Cynthia) Walk 10 feet: 3 (Cynthia) Walk 50 feet with two turns: 3 (Cynthia) PT Clothing Pattern Preparer Goals Clothing Pattern Preparer Goals PT Clothing Pattern Preparer Goals Time Frame: May 22, 2021 Roll Left & Right (QC): 6 Sit to Lying (QC): 4 (SBA) Lying-Sitting on Side/Bed(QC): 4 (SBA) Sit to Stand (QC): 4 (SBA) Chair/Fhm-zi-Jwcdk Xfer(QC): 4 (SBA) Toilet Transfer (QC): 4 (SBA) Car Transfer (QC): 4 (SBA) Does the Patient Walk: Yes Walk 10 feet (QC): 4 (CGA) Walk 50ft with 2 Turns (QC): 4 (CGA) Walk 150 ft (QC): 88 Walking 10ft on Uneven Surface: 4 (CGA) 1 Step (curb) (QC): 4 (CGA) 4 Steps (QC): 4 (CGA) 12 Steps (QC): 88 Picking up an Object (QC): 88 Wheel 50 feet with 2 turns (QC: 5 Wheel 150 feet: 5 PT Plan Problem List Problem List: Activity Tolerance, Functional Strength, Safety, Balance, Gait Treatment/Plan Treatment Plan: Continue Plan of Care Treatment Plan: Bed Mobility, Education, Functional Activity Jose Carlos, Functional Strength, Group Therapy, Gait, Safety, Therapeutic Exercise, Transfers Treatment Duration: May 22, 2021 Frequency: At least 5 of 7 days/Wk (IRF) Estimated Hrs Per Day: 1.5 hours per day Patient and/or Family Agrees t: Yes Safety Risks/Education Patient Education: Gait Training, Correct Positioning, Safety Issues Teaching Recipient: Patient Teaching Methods: Discussion Response to Teaching: Verbalize Understanding Time/GCodes Time In: 1115 Time Out: 1215 Total Billed Treatment Time: 60 Total Billed Treatment 1, GT (20m), EX (15m) & FA x2 (25m) TAYLA KERNS BONDING MACHINE SETTER May 09, 2021 12:27
--- NOTE | 2021-05-09 13:41 | Occupational Ther Daily Note ---
OT Current Status-Daily Note Subjective Pt. alert and in bed when entered. Pt. agreed to therapy. No c/o of pain Mental Status/Objective Patient Orientation: Person, Place, Time, Situation ADL-Treatment Therapy Code Descriptions/Definitions Functional [place] Measure: 0=Not Assessed/NA 4=Minimal Assistance 1=Total Assistance 5=Supervision or Setup 2=Maximal Assistance 6=Modified [place] 3=Moderate Assistance 7=Complete IndependenceSCALE: Activities may be completed with or without assistive devices. 7-Lysdiivdhu-salfgyv completes the activity by him/herself with no assistance from a helper. 5-Set-up or Clean-up Assistance-helper sets up or cleans up; patient completes activity. [place] assists only prior to or following the activity. 4-Supervision or Touching Assistance-helper provides verbal cues and/or touching/steadying and/or contact guard assistance as patient completes activity. Assistance may be provided throughout the activity or intermittently. 3-Partial/Moderate Assistance-helper does LESS THAN HALF the effort. [place] lifts, holds or supports trunk or limbs, but provides less than half the effort. 2-Substantial/Maximal Assistance-helper does MORE THAN HALF the effort. [place] lifts or holds trunk or limbs and provides more than half the effort. 4-Ggvdzovzn-yxcuxs does ALL the effort. Patient does none of the effort to complete the activity. Or, the assistance of 2 or more helpers is required for the patient to complete the activity. If activity was not attempted, code reason: 7-Patient Refused. 9-Not Applicable-not attempted and the patient did not perform the activity before the current illness, exacerbation or injury. 10-Not Attempted due to Environmental Limitations-(lack of equipment, weather restraints, etc.). 88-Not Attempted due to Medical Conditions or Safety Concerns. Other Treatment Pt. maneuvered a wheelchair to gym. Pt. transferred with CGA from wheelchair to mat in gym where they performed WB exercise 5x's each side. Pt. was able to roll ball in circular motion with L UE clockwise and counter clockwise. With support of left hand pt. was able to extend L UE for scapular protraction, and then flex for to scapular retraction. At end of session Pt. no c/o of pain. Call light/phone within reach. All needs met in room. OT Short Term Goals Short Term Goals Time Frame: May 11, 2021 Shower/bathe self: 3 Upper body dressin Lower body dressin Putting on/taking off footwear: 3 OT Retirement Goals B2B Managed Service Sales Exec Goals Time Frame: Jun 01, 2021 Eating (QC): 5 Oral Hygiene (QC): 5 Toileting Hygiene (QC): 4 Shower/Bathe Self (QC): 4 Upper Body Dressing (QC): 5 Lower Body Dressing (QC): 4 On/Off Footwear (QC): 4 Additional Goals: 1-Demonstrate ADL Tasks, 2-Verbalize Understanding, 3-Impro veStrength/Jose Carlos 1=Demonstrate adherence to instructed precautions during ADL tasks. 2=Patient will verbalize/demonstrate understanding of assistive devices/modifications for ADL. 3=Patient will improve strength/tolerance for activity to enable patient to perform ADL's. OT Education/Plan Problem List/Assessment Assessment: Decreased Activ Tolerance, Decreased Safety Aware, Decreased UE Strength, Impaired Cognition, Impaired Coordination, Impaired Funct Balance, Impaired I ADL's, Impaired Self-Care Skills, Restricted Funct UE ROM, Visual- Perceptual Deficit Discharge Recommendations Plan/Recommendations: Continue POC Treatment Plan/Plan of Care Patient would benefit from OT for education, treatment and training to promote independence in ADL's, mobility, safety and/or upper extremity function for ADL's. Plan of Care: ADL Retraining, Functional Mobility, Group Exercise/Act as Ind, UE Funct Exercise/Act Treatment Duration: Jun 01, 2021 Frequency: At least 5 of 7 days/Wk (IRF) Estimated Hrs Per Day: 1.5 hours per day Agreement: Yes Rehab Potential: Fair Time/GCodes Start Time: 13:00 Stop Time: 13:30 Total Time Billed (hr/min): 30 Billed Treatment Time 1 visit- NM 2 (30 min) AAKASH HODGES May 09, 2021 13:41
--- NOTE | 2021-05-09 16:22 | Physical Therapy Daily Note ---
PT Daily Note-Current Subjective Pt laying Supine in bed after finishing lunch. Pt agrees to PT. Pain Location: No Pain Reported Mental Status Patient Orientation: Person, Place, Situation Transfers SCALE: Activities may be completed with or without assistive devices. 4-Zpnocmnabg-lqgynnk completes the activity by him/herself with no assistance from a helper. 5-Set-up or Clean-up Assistance-helper sets up or cleans up; patient completes activity. [place] assists only prior to or following the activity. 4-Supervision or Touching Assistance-helper provides verbal cues and/or touching/steadying and/or contact guard assistance as patient completes activity. Assistance may be provided throughout the activity or intermittently. 3-Partial/Moderate Assistance-helper does LESS THAN HALF the effort. [place] lifts, holds or supports trunk or limbs, but provides less than half the effort. 2-Substantial/Maximal Assistance-helper does MORE THAN HALF the effort. [place] lifts or holds trunk or limbs and provides more than half the effort. 1-Uubhcnswr-poixoe does ALL the effort. Patient does none of the effort to compl ete the activity. Or, the assistance of 2 or more helpers is required for the patient to complete the activity. If activity was not attempted, code reason: 7-Patient Refused. 9-Not Applicable-not attempted and the patient did not perform the activity before the current illness, exacerbation or injury. 10-Not Attempted due to Environmental Limitations-(lack of equipment, weather restraints, etc.). 88-Not Attempted due to Medical Conditions or Safety Concerns. Weight Bearing Full Weight Bearing Full Weight Bearing Exercises Supine Ex: Ankle pumps, Quad Set, Glut sets, Heel Slides, Short Arc Quads, Straight leg raise, Hip abd/add Supine Reps: 15 Treatments Pt completes Supine Ex then rests with all needs met. Call light in hand. Assessment Current Status: Good Progress Pt tolerates tx well. PT Short Term Goals Short Term Goals Time Frame: May 08, 2021 Roll Left & Right: 4 Sit to lyin (Cynthia) Lying to sitting on side of be: 3 (Cynthia) Sit to stand: 3 (Cynthia) Chair/jkq-ay-zjasd transfer: 3 (Cynthia) Walk 10 feet: 3 (Cynthia) Walk 50 feet with two turns: 3 (Cynthia) PT Senior Care Goals Cephalometric Analyst Goals PT Cephalometric Analyst Goals Time Frame: May 22, 2021 Roll Left & Right (QC): 6 Sit to Lying (QC): 4 (SBA) Lying-Sitting on Side/Bed(QC): 4 (SBA) Sit to Stand (QC): 4 (SBA) Chair/Fee-ad-Llpih Xfer(QC): 4 (SBA) Toilet Transfer (QC): 4 (SBA) Car Transfer (QC): 4 (SBA) Does the Patient Walk: Yes Walk 10 feet (QC): 4 (CGA) Walk 50ft with 2 Turns (QC): 4 (CGA) Walk 150 ft (QC): 88 Walking 10ft on Uneven Surface: 4 (CGA) 1 Step (curb) (QC): 4 (CGA) 4 Steps (QC): 4 (CGA) 12 Steps (QC): 88 Picking up an Object (QC): 88 Wheel 50 feet with 2 turns (QC: 5 Wheel 150 feet: 5 PT Plan Problem List Problem List: Activity Tolerance Treatment/Plan Treatment Plan: Continue Plan of Care Treatment Plan: Bed Mobility, Education, Functional Activity Jose Carlos, Functional Strength, Group Therapy, Gait, Safety, Therapeutic Exercise, Transfers Treatment Duration: May 22, 2021 Frequency: At least 5 of 7 days/Wk (IRF) Estimated Hrs Per Day: 1.5 hours per day Patient and/or Family Agrees t: Yes Time/GCodes Time In: 1400 Time Out: 1430 Total Billed Treatment Time: 30 Total Billed Treatment 1, EX x2 (30m) TAYLA KERNS COMPUTER TRAINING SPECIALIST May 09, 2021 16:22
--- NOTE | 2021-05-09 17:22 | Podiatry Progress Note ---
Standard Progress Note Progress Notes/Assess & Plan Date Seen by a Provider: May 09, 2021 Time Seen by a Provider: 17:18 Progress/Assessment & Plan The patient hit his left great toe on the end of the bed yesterday and had pain throughout the night. No drainage, no treatment done except for pain medication. The patient has a 1/4 dorsalis pedis pulse, 2/4 posterior tibial pulse bilaterally. CFT is less than 3 seconds to the left hallux. NEUROLOGIC: He has intact protective sensation with 10 gram monofilament wire examination bilaterally. Diminished vibratory sensation to the forefoot bilaterally. INTEGUMENTARY: The patient has incurvated borders to the L1 toenail without any significant erythema, edema or gross signs of bacterial infection. There is pain with palpation to the distal lateral left hallux toenail. No proximal streaking The patient has 5/5 muscle strength to the four major quadrants of the foot including the left lower extremity. ASSESSMENT: 1. Onychocryptosis L1. 2. Onychomycosis. 3. Peripheral neuropathy. PLAN: Various treatment options were discussed with the patient today. With verbal permission and without the aid of anesthesia, more of the offending distal lateral nail plate was reduced. There was no bleeding involved with this procedure. However, after the nails were debrided. Betadine was applied with a light dressing. We will continue with Betadine and a light dressing to the L1 toenail for the next 5 days as a precaution. Final Diagnosis Onychocryptosis, L1 toe NARCISA HUTCHINS DPM May 09, 2021 17:22
[2021-05-09] MEDS: TAMSULOSIN 0.4 MG (FLOMAX) CAP PO SCH (17:54)
[2021-05-09 20:15] VITALS: BP 105/54
--- NOTE | 2021-05-09 21:20 | PM&R Progress Note ---
Subjective HPI/CC On Admission Date Seen by Provider: May 09, 2021 Time Seen by Provider: 10:00 Subjective/Events-last exam 05/09/2021: Patient progressing well Bowels moved last night Vision is better in the right eye Somatic complaints 05/08/2021: Pt walking with a cane and a gait belt Left side neglect is noted Vision is improved Barium swallow will need to be done on the Pt as an outpatient Fish oil will be changed to bunny red per his home dose 05/07/2021: Pt doing pretty well but having things stuck in his throat He has had multiple EGDs and stretching before so will have Dr. Umana see him Multiple somatic complaints 05/06/2021: Patient doing really well today Bowels moved today Eating a bit more We will have speech therapy change diet 05/05/2021: Patient doing really well Seems to have little confidence Discontinue Carafate due to side effects Incision looks good on the right carotid Voiding well Bowels are moving 05/04/2021: Pt doing pretty well Walked in the halls Bowels moving a little bit now Urination doing pretty well 05/03/2021: Pt doing pretty well Cystoscope done and now voiding well DC Bactrim since he is having difficulty swallowing GERD issues continue Proton pump inhibitor and Carafate maintained Will have a suppository if bowels have not moved later 05/02/2021: Pt doing pretty well Became tearful a bit today No BM since 04/27 so laxatives given Nausea a bit last night Dr. Valencia saw him and will perform a cystoscopy tomorrow Dysphasia noted Left arm is tingling so hopefully we will regain some function Review of Systems General: Fatigue Neurological: Weakness, Incoordination Objective Exam Vital Signs Vital Signs Date Time Temp Pulse Resp B/P (MAP) Pulse Ox O2 Delivery O2 Flow Rate FiO2 05/09/21 21:00 Room Air 05/09/21 20:15 37.6 71 18 105/54 (71) 97 Capillary Refill : General Appearance: No Apparent Distress, WD/WN, Chronically ill HEENT: PERRL/EOMI, Normal ENT Inspection, Pharynx Normal Neck: Full Range of Motion, Normal Inspection, Non Tender, Supple, Carotid Bruit Respiratory: Chest Non Tender, Lungs Clear, Normal Breath Sounds, No Accessory Muscle Use, No Respiratory Distress Cardiovascular: Regular Rate, Rhythm, Normal Peripheral Pulses Gastrointestinal: Normal Bowel Sounds, No Organomegaly, No Pulsatile Mass, Non Tender, Soft Back: Normal Inspection, No CVA Tenderness, No Vertebral Tenderness Extremity: Normal Capillary Refill, Non Tender, No Calf Tenderness, No Pedal Edema Neurologic/Psychiatric: Alert, Oriented x3, Normal Mood/Affect, Motor Weakness (Left-sided weakness upper and lower extremities) Skin: Normal Color, Warm/Dry Lymphatic: No Adenopathy Results/Procedures Lab Patient resulted labs reviewed. FIM Transfers Therapy Code Descriptions/Definitions Functional [place] Measure: 0=Not Assessed/NA 4=Minimal Assistance 1=Total Assistance 5=Supervision or Setup 2=Maximal Assistance 6=Modified [place] 3=Moderate Assistance 7=Complete IndependenceSCALE: Activities may be completed with or without assistive devices. 7-Dklklsbqil-qvxsqpu completes the activity by him/herself with no assistance from a helper. 5-Set-up or Clean-up Assistance-helper sets up or cleans up; patient completes activity. [place] assists only prior to or following the activity. 4-Supervision or Touching Assistance-helper provides verbal cues and/or touchin g/steadying and/or contact guard assistance as patient completes activity. Assistance may be provided throughout the activity or intermittently. 3-Partial/Moderate Assistance-helper does LESS THAN HALF the effort. [place] lifts, holds or supports trunk or limbs, but provides less than half the effort. 2-Substantial/Maximal Assistance-helper does MORE THAN HALF the effort. [place] lifts or holds trunk or limbs and provides more than half the effort. 0-Btfclwwjh-rzaetk does ALL the effort. Patient does none of the effort to complete the activity. Or, the assistance of 2 or more helpers is required for the patient to complete the activity. If activity was not attempted, code reason: 7-Patient Refused. 9-Not Applicable-not attempted and the patient did not perform the activity before the current illness, exacerbation or injury. 10-Not Attempted due to Environmental Limitations-(lack of equipment, weather restraints, etc.). 88-Not Attempted due to Medical Conditions or Safety Concerns. Roll Left to Right (QC): 6 Sit to Lying (QC): 4 Sit to Stand (QC): 4 Chair/Btj-ft-Sscex Xfer(QC): 4 Car Transfer (QC): 3 Gait Training Does the Patient Walk?: Yes Distance: 75'x3, 100' Walk 10 feet (QC): 4 Walk 50 ft with 2 Turns(QC): 4 Walk 150 ft (QC): 4 Walking 10ft/uneven surface-QC: 88 Gait Persons Needed: 1 Gait Assistive Device: Cane Large Base Quad Wheelchair Training Does the Pt Use a Wheelchair?: Yes Distance: 400' Wheel 50 ft with 2 turns (QC): 3 Wheel 150 ft (QC): 3 Type of Wheelchair: Manual Stair Training 1 Step (curb) (QC): 88 4 Steps (QC): 88 12 Steps (QC): 88 Balance Picking up an Object (QC): 88 ADL-Treatment Eating (QC): 5 (Set up required then uses hands or regular utensils to eat.) Oral Hygiene (QC): 4 (Supervision and verbal cues to incorporate L UE functionally during task.) Bathing Location: L Arm, R Arm, L Upper Leg, R Upper Leg, L Lower Leg (including foot), R Lower Leg (including foot), Chest, Abdomen, Buttocks, Perineal Area Shower/Bathe Self (QC): 3 Upper Body Dressing (QC): 3 (Min. A Pt. required instruction and help threading left arm into arm hole and then cues to continue sequencing until complete.) Lower Body Dressing (QC): 2 (Mod A. needed verbal cue identifying that shorts were on backwards and to switch them around then to pull up L LE. 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 Umana Plan: Aggressive therapy Urology consult Monitor closely 05/02/2021: Appreciate urology Cystoscopy tomorrow Bowel regimen 05/03/2021: Status post cystoscopy Voiding well now DC Bactrim 05/04/2021: Much improved Moving around much better Monitor bowel function 05/05/2021: Supportive care Ambulating well 05/06/2021: Supportive care Monitor closely 05/07/2021: Dr. Umana appreciated Dysphagia management 05/08/2021: Monitor closely Dysphagia management 05/09/2021: Supportive care Dysphagia management Monitor closely (1) CVA (cerebral vascular accident) GUILLERMO CABELLO DO May 09, 2021 21:20
[2021-05-10 08:00] VITALS: BP 114/54
--- NOTE | 2021-05-10 09:01 | Progress Note - Urology ---
Progress Note-Urology Progress Notes/Assess & Plan Progress/Assessment & Plan CONTINUES WELL JOO CHACON. WE WILL SEE HIM IN 2 WEEKS AT OFFICE Final Diagnosis RETENTION RESOLVED QIGN WAN MD May 10, 2021 09:01
[2021-05-10] MEDS: amLODIPine 5 MG (NORVASC) TAB PO SCH (09:59)
[2021-05-10] MEDS: DOCUSATE SODIUM 100 MG (COLACE) CAP PO SCH ×2 (09:59→19:50)
[2021-05-10] MEDS: SENNA W/DOCUSATE (SENOKOT S) TABLET PO SCH ×2 (09:59→19:50)
[2021-05-10] MEDS: ASPIRIN E.C. 81 MG (ECOTRIN) TAB PO SCH (09:59)
[2021-05-10] MEDS: CLOPIDOGREL 75 MG (PLAVIX) TABLET PO SCH (09:59)
[2021-05-10] MEDS: PANTOPRAZOLE 40 MG (PROTONIX) TAB PO SCH ×2 (09:59→19:51)
[2021-05-10] MEDS: polyethylene glycoL POWDER 17 GM (MIRALAX) PACK PO SCH ×2 (09:59→19:39)
[2021-05-10] MEDS: LACTOBACILLUS ACIDOPHILUS (PROBIOTIC) CAPSULE PO SCH (09:59)
[2021-05-10] MEDS: MEGA RED PO SCH (10:01)
[2021-05-10] MEDS: DICLOFENAC 1% GEL 100 GM (VOLTAREN) TUBE TOP PRN (10:22)
--- NOTE | 2021-05-10 10:31 | Occupational Ther Daily Note ---
OT Current Status-Daily Note Subjective Pt. resting in bed when entered room. Pt. didn't sleep well. No c/o pain. Pt. agreed to therapy. Mental Status/Objective Patient Orientation: Person, Place, Time, Situation ADL-Treatment Pt. was set up and verbally instructed and demonstrated a one handed technique on donning L sock lying in bed and sat up EOB attempted to don R sock. Set up for Pt. to don shoes. Pt. performed oral hygiene with verbal cues and hand placement techniques to complete oral care by self. Toilet transfer CGA using grabbar and w/c. Pt. attempted to manipulate clothing with L UE while supporting self with R UE using grabbar, Pt. unable to manipulate clothing due to fatigue assist given. Pt. able to complete toilet hygiene after BM sitting on toilet by self. Pt required assist to open denture package and rinsed dentures by self. After therapy, pt lying in bed with call light/phone in reach. All needs met in room. Therapy Code Descriptions/Definitions Functional [place] Measure: 0=Not Assessed/NA 4=Minimal Assistance 1=Total Assistance 5=Supervision or Setup 2=Maximal Assistance 6=Modified [place] 3=Moderate Assistance 7=Complete IndependenceSCALE: Activities may be completed with or without assistive devices. 4-Hqoxkyqllm-sxsjczx completes the activity by him/herself with no assistance from a helper. 5-Set-up or Clean-up Assistance-helper sets up or cleans up; patient completes activity. [place] assists only prior to or following the activity. 4-Supervision or Touching Assistance-helper provides verbal cues and/or touching/steadying and/or contact guard assistance as patient completes activity. Assistance may be provided throughout the activity or intermittently. 3-Partial/Moderate Assistance-helper does LESS THAN HALF the effort. [place] lifts, holds or supports trunk or limbs, but provides less than half the effort. 2-Substantial/Maximal Assistance-helper does MORE THAN HALF the effort. [place] lifts or holds trunk or limbs and provides more than half the effort. 1-Rtjyjoyop-irxmbw does ALL the effort. Patient does none of the effort to co mplete the activity. Or, the assistance of 2 or more helpers is required for the patient to complete the activity. If activity was not attempted, code reason: 7-Patient Refused. 9-Not Applicable-not attempted and the patient did not perform the activity before the current illness, exacerbation or injury. 10-Not Attempted due to Environmental Limitations-(lack of equipment, weather restraints, etc.). 88-Not Attempted due to Medical Conditions or Safety Concerns. Oral Hygiene (QC): 5 Toileting Hygiene (QC): 3 Toilet Transfer (QC): 4 Other Treatment Pt ambulated using FWW with min A, pt fatigued quickly. Pt then sat in w/c and propelled self to therapy gym. Pt completed B UE exercises to increase L UE AROM and strength, R UE strength and overall increased activity tolerance. When using arm bike, wrapping L hand onto L handle pt able to complete 4 min of B UE rotation then 1 min of only L UE rotation. Pt required 3 recovery breaks using arm bike. Using L UE to grasp 5 cones on one side then moving across midline to place on other side, 2x's. Using hand pulleys, wrapping pt's L hand on handle, pt able to complete for 2 min with B UE then 2 min with L UE while OTAS presented resistance to increase L UE strengthening. Pt then propelled w/c back to room. OT Short Term Goals Short Term Goals Time Frame: May 11, 2021 Shower/bathe self: 3 Upper body dressin Lower body dressin Putting on/taking off footwear: 3 OT Supervisor Finishing Room Goals Supervisor Finishing Room Goals Time Frame: Jun 01, 2021 Eating (QC): 5 Oral Hygiene (QC): 5 Toileting Hygiene (QC): 4 Shower/Bathe Self (QC): 4 Upper Body Dressing (QC): 5 Lower Body Dressing (QC): 4 On/Off Footwear (QC): 4 Additional Goals: 1-Demonstrate ADL Tasks, 2-Verbalize Understanding, 3- ImproveStrength/Jose Carlos 1=Demonstrate adherence to instructed precautions during ADL tasks. 2=Patient will verbalize/demonstrate understanding of assistive devices/modifications for ADL. 3=Patient will improve strength/tolerance for activity to enable patient to perform ADL's. OT Education/Plan Problem List/Assessment Assessment: Decreased Activ Tolerance, Decreased Safety Aware, Decreased UE Strength, Impaired Coordination, Impaired Funct Balance, Impaired I ADL's, Impaired Self-Care Skills, Restricted Funct UE ROM, Visual-Perceptual Deficit Discharge Recommendations Plan/Recommendations: Continue POC Treatment Plan/Plan of Care Patient would benefit from OT for education, treatment and training to promote independence in ADL's, mobility, safety and/or upper extremity function for ADL's. Plan of Care: ADL Retraining, Functional Mobility, Group Exercise/Act as Ind, UE Funct Exercise/Act Treatment Duration: Jun 01, 2021 Frequency: At least 5 of 7 days/Wk (IRF) Estimated Hrs Per Day: 1.5 hours per day Agreement: Yes Rehab Potential: Fair Time/GCodes Start Time: 09:00 Stop Time: 10:30 Total Time Billed (hr/min): 90 Billed Treatment Time 1 visit-ADL 3 (45 min) NM 3 (45 min) AAKASH HODGES May 10, 2021 10:31
--- NOTE | 2021-05-10 10:46 | PM&R Progress Note ---
Subjective HPI/CC On Admission Date Seen by Provider: May 10, 2021 Time Seen by Provider: 10:45 Subjective/Events-last exam 05/10/2021: Pt doing really well He didnt sleep again well last night so will initiated Melatonin 6 mg and Remeron of 15 Dr. Valencia will see him PRN now Changed bed to make it more comfortable Bowels moved today 05/09/2021: Patient progressing well Bowels moved last night Vision is better in the right eye Somatic complaints 05/08/2021: Pt walking with a cane and a gait belt Left side neglect is noted Vision is improved Barium swallow will need to be done on the Pt as an outpatient Fish oil will be changed to bunny red per his home dose 05/07/2021: Pt doing pretty well but having things stuck in his throat He has had multiple EGDs and stretching before so will have Dr. Umana see him Multiple somatic complaints 05/06/2021: Patient doing really well today Bowels moved today Eating a bit more We will have speech therapy change diet 05/05/2021: Patient doing really well Seems to have little confidence Discontinue Carafate due to side effects Incision looks good on the right carotid Voiding well Bowels are moving 05/04/2021: Pt doing pretty well Walked in the halls Bowels moving a little bit now Urination doing pretty well 05/03/2021: Pt doing pretty well Cystoscope done and now voiding well DC Bactrim since he is having difficulty swallowing GERD issues continue Proton pump inhibitor and Carafate maintained Will have a suppository if bowels have not moved later 05/02/2021: Pt doing pretty well Became tearful a bit today No BM since 04/27 so laxatives given Nausea a bit last night Dr. Valencia saw him and will perform a cystoscopy tomorrow Dysphasia noted Left arm is tingling so hopefully we will regain some function Review of Systems General: Fatigue Neurological: Weakness, Incoordination Objective Exam Vital Signs Vital Signs Date Time Temp Pulse Resp B/P (MAP) Pulse Ox O2 Delivery O2 Flow Rate FiO2 05/10/21 20:48 Room Air 05/10/21 19:33 36.9 82 18 107/68 (81) 97 Capillary Refill : General Appearance: No Apparent Distress, WD/WN, Chronically ill HEENT: PERRL/EOMI, Normal ENT Inspection, Pharynx Normal Neck: Full Range of Motion, Normal Inspection, Non Tender, Supple, Carotid Bruit Respiratory: Chest Non Tender, Lungs Clear, Normal Breath Sounds, No Accessory Muscle Use, No Respiratory Distress Cardiovascular: Regular Rate, Rhythm, Normal Peripheral Pulses Gastrointestinal: Normal Bowel Sounds, No Organomegaly, No Pulsatile Mass, Non Tender, Soft Back: Normal Inspection, No CVA Tenderness, No Vertebral Tenderness Extremity: Normal Capillary Refill, Non Tender, No Calf Tenderness, No Pedal Edema Neurologic/Psychiatric: Alert, Oriented x3, Normal Mood/Affect, Motor Weakness (Left-sided weakness upper and lower extremities) Skin: Normal Color, Warm/Dry Lymphatic: No Adenopathy Results/Procedures Lab Patient resulted labs reviewed. FIM Transfers Therapy Code Descriptions/Definitions Functional [place] Measure: 0=Not Assessed/NA 4=Minimal Assistance 1=Total Assistance 5=Supervision or Setup 2=Maximal Assistance 6=Modified [place] 3=Moderate Assistance 7=Complete IndependenceSCALE: Activities may be completed with or without assistive devices. 0-Ientcflivn-nzylerx completes the activity by him/herself with no assistance from a helper. 5-Set-up or Clean-up Assistance-helper sets up or cleans up; patient completes activity. [place] assists only prior to or following the activity. 4-Supervision or Touching Assistance-helper provides verbal cues and/or touching/steadying and/or contact guard assistance as patient completes activity. Assistance may be provided throughout the activity or intermittently. 3-Partial/Moderate Assistance-helper does LESS THAN HALF the effort. [place] lifts, holds or supports trunk or limbs, but provides less than half the effort. 2-Substantial/Maximal Assistance-helper does MORE THAN HALF the effort. [place] lifts or holds trunk or limbs and provides more than half the effort. 7-Eorscaqtp-nodxgo does ALL the effort. Patient does none of the effort to complete the activity. Or, the assistance of 2 or more helpers is required for the patient to complete the activity. If activity was not attempted, code reason: 7-Patient Refused. 9-Not Applicable-not attempted and the patient did not perform the activity before the current illness, exacerbation or injury. 10-Not Attempted due to Environmental Limitations-(lack of equipment, weather restraints, etc.). 88-Not Attempted due to Medical Conditions or Safety Concerns. Roll Left to Right (QC): 6 Sit to Lying (QC): 4 Sit to Stand (QC): 4 Chair/Ahj-qk-Robtv Xfer(QC): 4 Car Transfer (QC): 3 Gait Training Does the Patient Walk?: Yes Distance: 75'x3, 100' Walk 10 feet (QC): 4 Walk 50 ft with 2 Turns(QC): 4 Walk 150 ft (QC): 4 Walking 10ft/uneven surface-QC: 88 Gait Persons Needed: 1 Gait Assistive Device: Cane Large Base Quad Wheelchair Training Does the Pt Use a Wheelchair?: Yes Distance: 400' Wheel 50 ft with 2 turns (QC): 3 Wheel 150 ft (QC): 3 Type of Wheelchair: Manual Stair Training 1 Step (curb) (QC): 88 4 Steps (QC): 88 12 Steps (QC): 88 Balance Picking up an Object (QC): 88 ADL-Treatment Eating (QC): 5 (Set up required then uses hands or regular utensils to eat.) Oral Hygiene (QC): 4 (Supervision and verbal cues to incorporate L UE functionally during task.) Bathing Location: L Arm, R Arm, L Upper Leg, R Upper Leg, L Lower Leg (including foot), R Lower Leg (including foot), Chest, Abdomen, Buttocks, Perineal Area Shower/Bathe Self (QC): 3 Upper Body Dressing (QC): 3 (Min. A Pt. required instruction and help threading left arm into arm hole and then cues to continue sequencing until complete.) Lower Body Dressing (QC): 2 (Mod A. needed verbal cue identifying that shorts were on backwards and to switch them around then to pull up L LE. 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 Umana Plan: Aggressive therapy Urology consult Monitor closely 05/02/2021: Appreciate urology Cystoscopy tomorrow Bowel regimen 05/03/2021: Status post cystoscopy Voiding well now DC Bactrim 05/04/2021: Much improved Moving around much better Monitor bowel function 05/05/2021: Supportive care Ambulating well 05/06/2021: Supportive care Monitor closely 05/07/2021: Dr. Umana appreciated Dysphagia management 05/08/2021: Monitor closely Dysphagia management 05/09/2021: Supportive care Dysphagia management Monitor closely 05/10/2021: Focus on insomnia tonight Monitor closely (1) CVA (cerebral vascular accident) GUILLERMO CABELLO DO May 10, 2021 10:46
--- NOTE | 2021-05-10 11:25 | Physical Therapy Daily Note ---
PT Daily Note-Current Subjective Pt R sidelying upon arrival. Pt agrees to PT. Pt reports not sleeping well and being tired this morning. Pain Location: No Pain Reported Mental Status Patient Orientation: Person, Place, Situation Transfers SCALE: Activities may be completed with or without assistive devices. 1-Xuimhhvgim-cfzksvu completes the activity by him/herself with no assistance from a helper. 5-Set-up or Clean-up Assistance-helper sets up or cleans up; patient completes activity. [place] assists only prior to or following the activity. 4-Supervision or Touching Assistance-helper provides verbal cues and/or touching/steadying and/or contact guard assistance as patient completes activity. Assistance may be provided throughout the activity or intermittently. 3-Partial/Moderate Assistance-helper does LESS THAN HALF the effort. [place] lifts, holds or supports trunk or limbs, but provides less than half the effort. 2-Substantial/Maximal Assistance-helper does MORE THAN HALF the effort. [place] lifts or holds trunk or limbs and provides more than half the effort. 9-Gwmoycaic-kvvehk does ALL the effort. Patient does none of the effort to complete the activity. Or, the assistance of 2 or more helpers is required for the patient to complete the activity. If activity was not attempted, code reason: 7-Patient Refused. 9-Not Applicable-not attempted and the patient did not perform the activity before the current illness, exacerbation or injury. 10-Not Attempted due to Environmental Limitations-(lack of equipment, weather restraints, etc.). 88-Not Attempted due to Medical Conditions or Safety Concerns. Roll Left & Right (QC): 6 Sit to Stand (QC): 5 Weight Bearing Full Weight Bearing Full Weight Bearing Gait Training Does the Patient Walk?: Yes Distance: 150' Walk 10 feet (QC): 4 Walk 50 ft with 2 Turns(QC): 4 Walk 150 ft (QC): 4 Gait Persons Needed: 1 Gait Assistive Device: Cane Large Base Quad Pt demonstrates better body control due to speed is slown down. Wheelchair Training Does the Pt Use a Wheelchair?: No Exercises Supine Ex: Ankle pumps, Quad Set, Glut sets, Heel Slides, Short Arc Quads, Straight leg raise, Hip abd/add Supine Reps: 15 Treatments [id number]: Pt completes Supine Ex then resting in bed to try to get some sleep before lunch. [id number]: Pt is R sidelying in bed upon arrival. Pt transfers to EOB and reports dizziness so sits until it subsides. Pt transfers to standing then amb. in hallway, taking one RB as needed for fatigue. Pt returns to room at end of tx to rest EOB. Pt again reports dizziness so AIRLINE STATION AGENT sits with pt until subsides. AIRLINE STATION AGENT discusses what to watch for with dizziness and what to do as well as reviewed HEP. Pt resting with all needs met, call light in hand. Assessment Current Status: Good Progress Pt is improving with muscle control and improved ambulation. PT Short Term Goals Short Term Goals Time Frame: May 08, 2021 Roll Left & Right: 4 Sit to lyin (Cynthia) Lying to sitting on side of be: 3 (Cynthia) Sit to stand: 3 (Cynthia) Chair/ccv-gh-qvfxg transfer: 3 (Cynthia) Walk 10 feet: 3 (Cynthia) Walk 50 feet with two turns: 3 (Cynthia) PT Mcfp Goals Mcfp Goals PT Mcfp Goals Time Frame: May 22, 2021 Roll Left & Right (QC): 6 Sit to Lying (QC): 4 (SBA) Lying-Sitting on Side/Bed(QC): 4 (SBA) Sit to Stand (QC): 4 (SBA) Chair/Cgm-gv-Uviqy Xfer(QC): 4 (SBA) Toilet Transfer (QC): 4 (SBA) Car Transfer (QC): 4 (SBA) Does the Patient Walk: Yes Walk 10 feet (QC): 4 (CGA) Walk 50ft with 2 Turns (QC): 4 (CGA) Walk 150 ft (QC): 88 Walking 10ft on Uneven Surface: 4 (CGA) 1 Step (curb) (QC): 4 (CGA) 4 Steps (QC): 4 (CGA) 12 Steps (QC): 88 Picking up an Object (QC): 88 Wheel 50 feet with 2 turns (QC: 5 Wheel 150 feet: 5 PT Plan Problem List Problem List: Activity Tolerance, Functional Strength, Gait Treatment/Plan Treatment Plan: Continue Plan of Care Treatment Plan: Bed Mobility, Education, Functional Activity Jose Carlos, Functional Strength, Group Therapy, Gait, Safety, Therapeutic Exercise, Transfers Treatment Duration: May 22, 2021 Frequency: At least 5 of 7 days/Wk (IRF) Estimated Hrs Per Day: 1.5 hours per day Patient and/or Family Agrees t: Yes Safety Risks/Education Patient Education: Gait Training, Transfer Techniques, Correct Positioning Teaching Recipient: Patient Teaching Methods: Discussion Response to Teaching: Verbalize Understanding Time/GCodes Time In: 1100 Time Out: 1130 Total Billed Treatment Time: 30 Total Billed Treatment [id number]: 1, EX x2 (30m) [id number]: 1, FA x2 (30m) & GT x2 (30m) TAYLA KERNS AIRLINE STATION AGENT May 10, 2021 11:25
[2021-05-10] MEDS: TAMSULOSIN 0.4 MG (FLOMAX) CAP PO SCH (18:58)
[2021-05-10 19:33] VITALS: BP 107/68
[2021-05-10] MEDS: MELATONIN 3 MG TABLET PO SCH (19:50)
[2021-05-10] MEDS: HYDROcodone/APAP 5 MG/325 MG (LORTAB) TAB PO PRN (19:50)
[2021-05-10] MEDS: MIRTAZAPINE 15 MG (REMERON) TAB PO SCH (19:51)
--- NOTE | 2021-05-11 05:46 | PM&R Progress Note ---
Subjective HPI/CC On Admission Date Seen by Provider: May 11, 2021 Time Seen by Provider: 06:00 Subjective/Events-last exam 05/11/2021: Patient feels pretty good Slept very well last night No change in medication Patient doing pretty well 05/10/2021: Pt doing really well He didnt sleep again well last night so will initiated Melatonin 6 mg and Remeron of 15 Dr. Valencia will see him PRN now Changed bed to make it more comfortable Bowels moved today 05/09/2021: Patient progressing well Bowels moved last night Vision is better in the right eye Somatic complaints 05/08/2021: Pt walking with a cane and a gait belt Left side neglect is noted Vision is improved Barium swallow will need to be done on the Pt as an outpatient Fish oil will be changed to bunny red per his home dose 05/07/2021: Pt doing pretty well but having things stuck in his throat He has had multiple EGDs and stretching before so will have Dr. Umana see him Multiple somatic complaints 05/06/2021: Patient doing really well today Bowels moved today Eating a bit more We will have speech therapy change diet 05/05/2021: Patient doing really well Seems to have little confidence Discontinue Carafate due to side effects Incision looks good on the right carotid Voiding well Bowels are moving 05/04/2021: Pt doing pretty well Walked in the halls Bowels moving a little bit now Urination doing pretty well 05/03/2021: Pt doing pretty well Cystoscope done and now voiding well DC Bactrim since he is having difficulty swallowing GERD issues continue Proton pump inhibitor and Carafate maintained Will have a suppository if bowels have not moved later 05/02/2021: Pt doing pretty well Became tearful a bit today No BM since 04/27 so laxatives given Nausea a bit last night Dr. Valencia saw him and will perform a cystoscopy tomorrow Dysphasia noted Left arm is tingling so hopefully we will regain some function Review of Systems Neurological: Weakness, Incoordination Objective Exam Vital Signs Vital Signs Date Time Temp Pulse Resp B/P (MAP) Pulse Ox O2 Delivery O2 Flow Rate FiO2 05/11/21 09:00 Room Air 05/11/21 07:40 36.5 87 18 112/55 (74) 96 Capillary Refill : General Appearance: No Apparent Distress, WD/WN, Chronically ill HEENT: PERRL/EOMI, Normal ENT Inspection, Pharynx Normal Neck: Full Range of Motion, Normal Inspection, Non Tender, Supple, Carotid Bruit Respiratory: Chest Non Tender, Lungs Clear, Normal Breath Sounds, No Accessory Muscle Use, No Respiratory Distress Cardiovascular: Regular Rate, Rhythm, Normal Peripheral Pulses Gastrointestinal: Normal Bowel Sounds, No Organomegaly, No Pulsatile Mass, Non Tender, Soft Back: Normal Inspection, No CVA Tenderness, No Vertebral Tenderness Extremity: Normal Capillary Refill, Non Tender, No Calf Tenderness, No Pedal Edema Neurologic/Psychiatric: Alert, Oriented x3, Normal Mood/Affect, Motor Weakness (Left-sided weakness upper and lower extremities) Skin: Normal Color, Warm/Dry Lymphatic: No Adenopathy Results/Procedures Lab Patient resulted labs reviewed. FIM Transfers Therapy Code Descriptions/Definitions Functional [place] Measure: 0=Not Assessed/NA 4=Minimal Assistance 1=Total Assistance 5=Supervision or Setup 2=Maximal Assistance 6=Modified [place] 3=Moderate Assistance 7=Complete IndependenceSCALE: Activities may be completed with or without assistive devices. 2-Ednsmbxbui-jdbmpew completes the activity by him/herself with no assistance from a helper. 5-Set-up or Clean-up Assistance-helper sets up or cleans up; patient completes activity. [place] assists only prior to or following the activity. 4-Supervision or Touching Assistance-helper provides verbal cues and/or touching/steadying and/or contact guard assistance as patient completes activity. Assistance may be provided throughout the activity or intermittently. 3-Partial/Moderate Assistance-helper does LESS THAN HALF the effort. [place] lifts, holds or supports trunk or limbs, but provides less than half the effort. 2-Substantial/Maximal Assistance-helper does MORE THAN HALF the effort. [place] lifts or holds trunk or limbs and provides more than half the effort. 0-Rvcoyllyz-xzwbng does ALL the effort. Patient does none of the effort to complete the activity. Or, the assistance of 2 or more helpers is required for the patient to complete the activity. If activity was not attempted, code reason: 7-Patient Refused. 9-Not Applicable-not attempted and the patient did not perform the activity before the current illness, exacerbation or injury. 10-Not Attempted due to Environmental Limitations-(lack of equipment, weather restraints, etc.). 88-Not Attempted due to Medical Conditions or Safety Concerns. Roll Left to Right (QC): 6 Sit to Lying (QC): 4 Sit to Stand (QC): 5 Chair/Gup-um-Moswb Xfer(QC): 4 Car Transfer (QC): 3 Gait Training Does the Patient Walk?: Yes Distance: 150' Walk 10 feet (QC): 4 Walk 50 ft with 2 Turns(QC): 4 Walk 150 ft (QC): 4 Walking 10ft/uneven surface-QC: 88 Gait Persons Needed: 1 Gait Assistive Device: Cane Large Base Quad Wheelchair Training Does the Pt Use a Wheelchair?: No Distance: 400' Wheel 50 ft with 2 turns (QC): 3 Wheel 150 ft (QC): 3 Type of Wheelchair: Manual Stair Training 1 Step (curb) (QC): 88 4 Steps (QC): 88 12 Steps (QC): 88 Balance Picking up an Object (QC): 88 ADL-Treatment Eating (QC): 5 (Set up required then uses hands or regular utensils to eat.) Oral Hygiene (QC): 5 Bathing Location: L Arm, R Arm, L Upper Leg, R Upper Leg, L Lower Leg (including foot), R Lower Leg (including foot), Chest, Abdomen, Buttocks, Perineal Area Shower/Bathe Self (QC): 3 Upper Body Dressing (QC): 3 (Min. A Pt. required instruction and help threading left arm into arm hole and then cues to continue sequencing until complete.) Lower Body Dressing (QC): 2 (Mod A. needed verbal cue identifying that shorts were on backwards and to switch them around then to pull up L LE. 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 Umana Plan: Aggressive therapy Urology consult Monitor closely 05/02/2021: Appreciate urology Cystoscopy tomorrow Bowel regimen 05/03/2021: Status post cystoscopy Voiding well now DC Bactrim 05/04/2021: Much improved Moving around much better Monitor bowel function 05/05/2021: Supportive care Ambulating well 05/06/2021: Supportive care Monitor closely 05/07/2021: Dr. Umana appreciated Dysphagia management 05/08/2021: Monitor closely Dysphagia management 05/09/2021: Supportive care Dysphagia management Monitor closely 05/10/2021: Focus on insomnia tonight Monitor closely 05/11/2021: Supportive care Monitor closely (1) CVA (cerebral vascular accident) GUILLERMO CABELLO DO May 11, 2021 05:46
[2021-05-11 07:40] VITALS: BP 112/55
[2021-05-11] MEDS: PANTOPRAZOLE 40 MG (PROTONIX) TAB PO SCH ×2 (09:22→20:06)
[2021-05-11] MEDS: LACTOBACILLUS ACIDOPHILUS (PROBIOTIC) CAPSULE PO SCH (09:22)
[2021-05-11] MEDS: CLOPIDOGREL 75 MG (PLAVIX) TABLET PO SCH (09:22)
[2021-05-11] MEDS: SENNA W/DOCUSATE (SENOKOT S) TABLET PO SCH ×2 (09:22→20:06)
[2021-05-11] MEDS: amLODIPine 5 MG (NORVASC) TAB PO SCH (09:22)
[2021-05-11] MEDS: DOCUSATE SODIUM 100 MG (COLACE) CAP PO SCH ×2 (09:22→20:06)
[2021-05-11] MEDS: ASPIRIN E.C. 81 MG (ECOTRIN) TAB PO SCH (09:22)
[2021-05-11] MEDS: polyethylene glycoL POWDER 17 GM (MIRALAX) PACK PO SCH ×2 (09:24→21:00)
[2021-05-11] MEDS: MEGA RED PO SCH (09:24)
--- NOTE | 2021-05-11 09:28 | Occupational Ther Daily Note ---
OT Current Status-Daily Note Subjective Pt. alert in bed. Pt. slept better last night. No c/o pain. Pt. Agrees to therapy. Mental Status/Objective Patient Orientation: Person, Place, Time, Situation ADL-Treatment Pt. educated on equipment to don/doff socks. Pt. set up with equipment able to don shoes. Pt. walked to bathroom CGA. Pt. performed oral hygiene at sink requiring less verbal cues.Pt. will be set up for sock aid use. Once Pt. proficient donning sock with sock aid then teach how to place sock on sock aid with one handed sock donning techniques. Therapy Code Descriptions/Definitions Functional [place] Measure: 0=Not Assessed/NA 4=Minimal Assistance 1=Total Assistance 5=Supervision or Setup 2=Maximal Assistance 6=Modified [place] 3=Moderate Assistance 7=Complete IndependenceSCALE: Activities may be completed with or without assistive devices. 2-Wbagtaremv-hfkfjvl completes the activity by him/herself with no assistance from a helper. 5-Set-up or Clean-up Assistance-helper sets up or cleans up; patient completes activity. [place] assists only prior to or following the activity. 4-Supervision or Touching Assistance-helper provides verbal cues and/or touching/steadying and/or contact guard assistance as patient completes activity. Assistance may be provided throughout the activity or intermittently. 3-Partial/Moderate Assistance-helper does LESS THAN HALF the effort. [place] lifts, holds or supports trunk or limbs, but provides less than half the effort. 2-Substantial/Maximal Assistance-helper does MORE THAN HALF the effort. [place] lifts or holds trunk or limbs and provides more than half the effort. 4-Dxngwcxrb-pbootn does ALL the effort. Patient does none of the effort to comp lete the activity. Or, the assistance of 2 or more helpers is required for the patient to complete the activity. If activity was not attempted, code reason: 7-Patient Refused. 9-Not Applicable-not attempted and the patient did not perform the activity before the current illness, exacerbation or injury. 10-Not Attempted due to Environmental Limitations-(lack of equipment, weather restraints, etc.). 88-Not Attempted due to Medical Conditions or Safety Concerns. Oral Hygiene (QC): 4 (verbal cues) On/Off Footwear: 3 (Min A.) Other Treatment Pt. participated in AROM for shoulder flexion 3x's, shoulder flexion elbow extension by placing hand behind head 3 x's, horizontal shoulder add 3x's, AAROM shoulder flexion 2x's. Pt. maneuvered w/c to gym needing verbal cues due to L side visual cuts. Pt. participated in WB 5x's B UE. Pt. felt dizzy, SBA for balance.Pt. gathered pillow case on table with L UE using finger flex/exten. Pt. rested arm on incline attempted flex/exten of wrist did not complete. Manual muscle manipulation of forearm to perform finger flex/exten. Pt. maneuvered w/c back to room. Pt. transferred back to bed SBA. Pt. left with call light/phone within reach. Nursing entered room. All Pt. needs met in room. Education OT Patient Education: Use of adapted equipment Teaching Recipient: Patient Teaching Methods: Demonstration, Discussion Response to Teaching: Verbalize Understanding, Return Demonstration, Reinforcement Needed OT Short Term Goals Short Term Goals Time Frame: May 11, 2021 Shower/bathe self: 3 Upper body dressin Lower body dressin Putting on/taking off footwear: 3 OT Manager Pmo Goals Jail Goals Time Frame: Jun 01, 2021 Eating (QC): 5 Oral Hygiene (QC): 5 Toileting Hygiene (QC): 4 Shower/Bathe Self (QC): 4 Upper Body Dressing (QC): 5 Lower Body Dressing (QC): 4 On/Off Footwear (QC): 4 Additional Goals: 1-Demonstrate ADL Tasks, 2-Verbalize Understanding, 3- ImproveStrength/Jose Carlos 1=Demonstrate adherence to instructed precautions during ADL tasks. 2=Patient will verbalize/demonstrate understanding of assistive devices/modifications for ADL. 3=Patient will improve strength/tolerance for activity to enable patient to perform ADL's. OT Education/Plan Problem List/Assessment Assessment: Decreased Activ Tolerance, Decreased Safety Aware, Decreased UE Strength, Impaired Coordination, Impaired Funct Balance, Impaired I ADL's, Impaired Self-Care Skills, Restricted Funct UE ROM, Visual-Perceptual Deficit Discharge Recommendations Plan Plan/Recommendations: Continue POC Treatment Plan/Plan of Care Patient would benefit from OT for education, treatment and training to promote independence in ADL's, mobility, safety and/or upper extremity function for ADL's. Plan of Care: ADL Retraining, Functional Mobility, Group Exercise/Act as Ind, UE Funct Exercise/Act Treatment Duration: Jun 01, 2021 Frequency: 2 times per week Estimated Hrs Per Day: 1.5 hours per day Agreement: Yes Rehab Potential: Fair Time/GCodes Start Time: 08:30 Stop Time: 09:30 Total Time Billed (hr/min): 60 Billed Treatment Time 1 visit- ADL 2 (30 min), NM 2 (30 min). AAKASH HODGES May 11, 2021 09:28
--- NOTE | 2021-05-11 11:44 | Physical Therapy Daily Note ---
PT Daily Note-Current Subjective Pt in bed upon arrival. Agreeable to PT. Pt denies pain. Pt c/o fatigue. Mental Status Patient Orientation: Person, Place, Situation Transfers SCALE: Activities may be completed with or without assistive devices. 9-Pzunpmigsf-kgtazrs completes the activity by him/herself with no assistance from a helper. 5-Set-up or Clean-up Assistance-helper sets up or cleans up; patient completes activity. [place] assists only prior to or following the activity. 4-Supervision or Touching Assistance-helper provides verbal cues and/or touching/steadying and/or contact guard assistance as patient completes activity. Assistance may be provided throughout the activity or intermittently. 3-Partial/Moderate Assistance-helper does LESS THAN HALF the effort. [place] lifts, holds or supports trunk or limbs, but provides less than half the effort. 2-Substantial/Maximal Assistance-helper does MORE THAN HALF the effort. [place] lifts or holds trunk or limbs and provides more than half the effort. 1-Plphggoxs-garhop does ALL the effort. Patient does none of the effort to complete the activity. Or, the assistance of 2 or more helpers is required for the patient to complete the activity. If activity was not attempted, code reason: 7-Patient Refused. 9-Not Applicable-not attempted and the patient did not perform the activity before the current illness, exacerbation or injury. 10-Not Attempted due to Environmental Limitations-(lack of equipment, weather restraints, etc.). 88-Not Attempted due to Medical Conditions or Safety Concerns. Pt transfers min A - CGA. Pt turned to sit prematurely during transfer to [facility]. Pt educated and instructed in proper way to approach chair or bed. Pt verbalized understanding and demonstrated proper approach and proximity to [facility] and bed. Weight Bearing Full Weight Bearing Full Weight Bearing Gait Training Gait Assistive Device: Cane Large Base Quad Pt amb with QC and CGA 2 x 120ft. Pt had one unsteady episode. Pt tends to exaggerate step length on (L) LE and pt became overbalanced anteriorly but able to self right. Exercises Supine Ex: Ankle pumps, Quad Set, Heel Slides, Short Arc Quads, Hip abd/add Supine Reps: 20 NuStep Minutes: 5 NuStep Workload: 5 Treatments Pt requested BR privileges. Pt required max A to doff and don shorts. Assessment Current Status: Good Progress Pt progressing appropriately with functional mobility. Pt requires min A at times and cues for safe transfers and mobility. Pt tends to veer (L) but showed some awareness of this tendency. Pt fatigues easily. Pt resting in bed with all bed rails up and call light in reach. (L) UE supported on pillow. PT Short Term Goals Short Term Goals Time Frame: May 08, 2021 Roll Left & Right: 4 Sit to lyin (Cynthia) Lying to sitting on side of be: 3 (Cynthia) Sit to stand: 3 (Cynthia) Chair/zem-nk-udcht transfer: 3 (Cynthia) Walk 10 feet: 3 (Cynthia) Walk 50 feet with two turns: 3 (Cynthia) PT Credit Compliance Officer Goals Senior Care Goals PT Credit Compliance Officer Goals Time Frame: May 22, 2021 Roll Left & Right (QC): 6 Sit to Lying (QC): 4 (SBA) Lying-Sitting on Side/Bed(QC): 4 (SBA) Sit to Stand (QC): 4 (SBA) Chair/Bim-nv-Olahg Xfer(QC): 4 (SBA) Toilet Transfer (QC): 4 (SBA) Car Transfer (QC): 4 (SBA) Does the Patient Walk: Yes Walk 10 feet (QC): 4 (CGA) Walk 50ft with 2 Turns (QC): 4 (CGA) Walk 150 ft (QC): 88 Walking 10ft on Uneven Surface: 4 (CGA) 1 Step (curb) (QC): 4 (CGA) 4 Steps (QC): 4 (CGA) 12 Steps (QC): 88 Picking up an Object (QC): 88 Wheel 50 feet with 2 turns (QC: 5 Wheel 150 feet: 5 PT Plan Treatment/Plan Treatment Plan: Continue Plan of Care Treatment Plan: Bed Mobility, Education, Functional Activity Jose Carlos, Functional Strength, Group Therapy, Gait, Safety, Therapeutic Exercise, Transfers Treatment Duration: May 22, 2021 Frequency: At least 5 of 7 days/Wk (IRF) Estimated Hrs Per Day: 1.5 hours per day Patient and/or Family Agrees t: Yes Time/GCodes Time In: 1015 Time Out: 1100 Total Billed Treatment Time: 45 Total Billed Treatment 1, ther ex 15', gait 15' FA 15' CHARAN THOMPSON CPTA May 11, 2021 11:44
--- NOTE | 2021-05-11 14:30 | Therapy Group Daily Note ---
Therapy Daily Group Note Patient Education Topic Other List Below (memory) Exercises LE Seated Exercise, UE Exercise Session Ratio (pt:therapist): 4:1 Goal of Session: Education on ARU Expectations, Memory Strategies, UE/LE Strengthing Goal Met for this Session: Yes Pt Benefit of Group: Contributions to Others, F/U Use of Strategies @Home, Increased Functional Safety, Increased Functional Strength, Improved Cognition, Recognition of Peers, Socialization Other/Notes [facility]. Group consisted of introductions (name, place living, roll a dice questions), socialization, B UE/LE seated exercises, education of memory strategies and memory activity. Pt introduced self appropriately and actively listened to peers. Pt able to complete B UE exercises with self ROM technique then only R LE exercises only due to L LE muscle weakness. Pt demonstrated understanding of educational topic by verbalizing understanding. Pt requires assistance for memory activity, 2 out of 6. After therapy, pt lying in bed with call light/phone in reach. All needs met in room. Start Time: 13:00 Stop Time: 14:00 Total Billed Treatment Time: 60 Total Billed Treatment 1-GRP AAKASH HODGES May 11, 2021 14:30
--- NOTE | 2021-05-11 15:35 | Speech Therapy Daily Note ---
Speech Daily Progress Note Subjective Time Seen by Provider: 14:08 Pt laying in bed. Pleasant and cooperative for speech therapy tasks. Objective Pt verbalized swallow strategies and demonstrated during snack. Pt tolerated fruit loops and thin liquids with no difficulty. Pt reports he has always had difficulty with breads and meats d/t his hernia. Pt appears to be independent with swallow strategies. Treatment Plan Continue Plan of Care Speech Short Term Goals Short Term Goals Short Term Goals 1) Patient will tolerate least restrictive diet level without s/s of aspiration at 90% or greater. 2) Patient will utilize compensatory strategies for safe oral intake at 90% or greater with minimal cues. Speech Agriculture Technician Goals Agriculture Technician Goals Patient will maintain adequate nutrition/hydration via safe effective swallow function. Speech-Plan Treatment Plan Speech Therapy Treatment Plan: Continue Plan of Care Treatment Duration: May 18, 2021 Frequency: 4 times per week (Patient will receive skilled ST 4-5x per week) Estimated Hrs Per Day: .5 hour per day Rehab Potential: Fair Time Speech Therapy Time In: 14:40 Speech Therapy Time Out: 15:10 Billed Treatment Time 1, DYST 30 MIN EDMUNDO MONTERO May 11, 2021 15:35
[2021-05-11] MEDS: TAMSULOSIN 0.4 MG (FLOMAX) CAP PO SCH (18:29)
[2021-05-11 20:00] VITALS: BP 118/70
[2021-05-11] MEDS: MIRTAZAPINE 15 MG (REMERON) TAB PO SCH (20:06)
[2021-05-11] MEDS: MELATONIN 3 MG TABLET PO SCH (20:06)
[2021-05-11] MEDS: HYDROcodone/APAP 5 MG/325 MG (LORTAB) TAB PO PRN (22:47)
--- NOTE | 2021-05-12 06:24 | PM&R Progress Note ---
Subjective HPI/CC On Admission Date Seen by Provider: May 12, 2021 Time Seen by Provider: 06:30 Subjective/Events-last exam 05/12/21: Patient doing well Not sleeping too well at times No falls Walking well Voiding well 05/11/2021: Patient feels pretty good Slept very well last night No change in medication Patient doing pretty well 05/10/2021: Pt doing really well He didnt sleep again well last night so will initiated Melatonin 6 mg and Remeron of 15 Dr. Valencia will see him PRN now Changed bed to make it more comfortable Bowels moved today 05/09/2021: Patient progressing well Bowels moved last night Vision is better in the right eye Somatic complaints 05/08/2021: Pt walking with a cane and a gait belt Left side neglect is noted Vision is improved Barium swallow will need to be done on the Pt as an outpatient Fish oil will be changed to bunny red per his home dose 05/07/2021: Pt doing pretty well but having things stuck in his throat He has had multiple EGDs and stretching before so will have Dr. Umana see him Multiple somatic complaints 05/06/2021: Patient doing really well today Bowels moved today Eating a bit more We will have speech therapy change diet 05/05/2021: Patient doing really well Seems to have little confidence Discontinue Carafate due to side effects Incision looks good on the right carotid Voiding well Bowels are moving 05/04/2021: Pt doing pretty well Walked in the halls Bowels moving a little bit now Urination doing pretty well 05/03/2021: Pt doing pretty well Cystoscope done and now voiding well DC Bactrim since he is having difficulty swallowing GERD issues continue Proton pump inhibitor and Carafate maintained Will have a suppository if bowels have not moved later 05/02/2021: Pt doing pretty well Became tearful a bit today No BM since 04/27 so laxatives given Nausea a bit last night Dr. Valencia saw him and will perform a cystoscopy tomorrow Dysphasia noted Left arm is tingling so hopefully we will regain some function Review of Systems General: Fatigue, Malaise Neurological: Weakness, Incoordination Objective Exam Vital Signs Vital Signs Date Time Temp Pulse Resp B/P (MAP) Pulse Ox O2 Delivery O2 Flow Rate FiO2 05/12/21 09:01 Room Air 05/12/21 07:54 37.0 66 20 120/64 (82) 94 Capillary Refill : General Appearance: No Apparent Distress, WD/WN, Chronically ill HEENT: PERRL/EOMI, Normal ENT Inspection, Pharynx Normal Neck: Full Range of Motion, Normal Inspection, Non Tender, Supple, Carotid Bruit Respiratory: Chest Non Tender, Lungs Clear, Normal Breath Sounds, No Accessory Muscle Use, No Respiratory Distress Cardiovascular: Regular Rate, Rhythm, Normal Peripheral Pulses Gastrointestinal: Normal Bowel Sounds, No Organomegaly, No Pulsatile Mass, Non Tender, Soft Back: Normal Inspection, No CVA Tenderness, No Vertebral Tenderness Extremity: Normal Capillary Refill, Non Tender, No Calf Tenderness, No Pedal Edema Neurologic/Psychiatric: Alert, Oriented x3, Normal Mood/Affect, Motor Weakness (Left-sided weakness upper and lower extremities) Skin: Normal Color, Warm/Dry Lymphatic: No Adenopathy Results/Procedures Lab Patient resulted labs reviewed. FIM Transfers Therapy Code Descriptions/Definitions Functional [place] Measure: 0=Not Assessed/NA 4=Minimal Assistance 1=Total Assistance 5=Supervision or Setup 2=Maximal Assistance 6=Modified [place] 3=Moderate Assistance 7=Complete IndependenceSCALE: Activities may be completed with or without assistive devices. 2-Brmyvacghg-icarhvw completes the activity by him/herself with no assistance from a helper. 5-Set-up or Clean-up Assistance-helper sets up or cleans up; patient completes activity. [place] assists only prior to or following the activity. 4-Supervision or Touching Assistance-helper provides verbal cues and/or touching/steadying and/or contact guard assistance as patient completes activity. Assistance may be provided throughout the activity or intermittently. 3-Partial/Moderate Assistance-helper does LESS THAN HALF the effort. [place] lifts, holds or supports trunk or limbs, but provides less than half the effort. 2-Substantial/Maximal Assistance-helper does MORE THAN HALF the effort. [place] lifts or holds trunk or limbs and provides more than half the effort. 6-Duqmvjlmg-vdmrnf does ALL the effort. Patient does none of the effort to complete the activity. Or, the assistance of 2 or more helpers is required for the patient to complete the activity. If activity was not attempted, code reason: 7-Patient Refused. 9-Not Applicable-not attempted and the patient did not perform the activity before the current illness, exacerbation or injury. 10-Not Attempted due to Environmental Limitations-(lack of equipment, weather restraints, etc.). 88-Not Attempted due to Medical Conditions or Safety Concerns. Roll Left to Right (QC): 6 Sit to Lying (QC): 4 Sit to Stand (QC): 5 Chair/Rka-al-Pjzwj Xfer(QC): 4 Car Transfer (QC): 3 Gait Training Does the Patient Walk?: Yes Distance: 150' Walk 10 feet (QC): 4 Walk 50 ft with 2 Turns(QC): 4 Walk 150 ft (QC): 4 Walking 10ft/uneven surface-QC: 88 Gait Persons Needed: 1 Gait Assistive Device: Cane Large Base Quad Wheelchair Training Does the Pt Use a Wheelchair?: No Distance: 400' Wheel 50 ft with 2 turns (QC): 3 Wheel 150 ft (QC): 3 Type of Wheelchair: Manual Stair Training 1 Step (curb) (QC): 88 4 Steps (QC): 88 12 Steps (QC): 88 Balance Picking up an Object (QC): 88 ADL-Treatment Eating (QC): 5 (Set up required then uses hands or regular utensils to eat.) Oral Hygiene (QC): 4 (verbal cues) Bathing Location: L Arm, R Arm, L Upper Leg, R Upper Leg, L Lower Leg (including foot), R Lower Leg (including foot), Chest, Abdomen, Buttocks, Perineal Area Shower/Bathe Self (QC): 3 Upper Body Dressing (QC): 3 (Min. A Pt. required instruction and help threading left arm into arm hole and then cues to continue sequencing until complete.) Lower Body Dressing (QC): 2 (Mod A. needed verbal cue identifying that shorts were on backwards and to switch them around then to pull up L LE. 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 Umana Plan: Aggressive therapy Urology consult Monitor closely 05/02/2021: Appreciate urology Cystoscopy tomorrow Bowel regimen 05/03/2021: Status post cystoscopy Voiding well now DC Bactrim 05/04/2021: Much improved Moving around much better Monitor bowel function 05/05/2021: Supportive care Ambulating well 05/06/2021: Supportive care Monitor closely 05/07/2021: Dr. Umana appreciated Dysphagia management 05/08/2021: Monitor closely Dysphagia management 05/09/2021: Supportive care Dysphagia management Monitor closely 05/10/2021: Focus on insomnia tonight Monitor closely 05/11/2021: Supportive care Monitor closely 05/12/21: Monitor closely Monitor pain (1) CVA (cerebral vascular accident) GUILLERMO CABELLO DO May 12, 2021 06:24
[2021-05-12 07:54] VITALS: BP 120/64
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
[2021-05-12] MEDS: LACTOBACILLUS ACIDOPHILUS (PROBIOTIC) CAPSULE PO SCH (08:43)
[2021-05-12] MEDS: CLOPIDOGREL 75 MG (PLAVIX) TABLET PO SCH (08:43)
[2021-05-12] MEDS: ASPIRIN E.C. 81 MG (ECOTRIN) TAB PO SCH (08:43)
[2021-05-12] MEDS: SENNA W/DOCUSATE (SENOKOT S) TABLET PO SCH ×2 (08:43→20:43)
[2021-05-12] MEDS: PANTOPRAZOLE 40 MG (PROTONIX) TAB PO SCH ×2 (08:43→19:56)
[2021-05-12] MEDS: DOCUSATE SODIUM 100 MG (COLACE) CAP PO SCH ×2 (08:43→20:43)
[2021-05-12] MEDS: amLODIPine 5 MG (NORVASC) TAB PO SCH (08:43)
[2021-05-12] MEDS: MEGA RED PO SCH (08:45)
[2021-05-12] MEDS: polyethylene glycoL POWDER 17 GM (MIRALAX) PACK PO SCH ×2 (08:45→20:43)
[2021-05-12] MEDS: TAMSULOSIN 0.4 MG (FLOMAX) CAP PO SCH (17:30)
[2021-05-12] MEDS: MIRTAZAPINE 15 MG (REMERON) TAB PO SCH (19:56)
[2021-05-12] MEDS: ACETAMINOPHEN 325 MG TABLET PO PRN (19:56)
[2021-05-12] MEDS: MELATONIN 3 MG TABLET PO SCH (19:56)
[2021-05-12 20:14] VITALS: BP 107/58
--- NOTE | 2021-05-13 05:43 | PM&R Progress Note ---
Subjective HPI/CC On Admission Date Seen by Provider: May 13, 2021 Time Seen by Provider: 05:45 Subjective/Events-last exam 05/13/21: Slept a bit better No dizziness after getting up this morning Somatic complaints Very slow recovery mentally from CVA 05/12/21: Patient doing well Not sleeping too well at times No falls Walking well Voiding well 05/11/2021: Patient feels pretty good Slept very well last night No change in medication Patient doing pretty well 05/10/2021: Pt doing really well He didnt sleep again well last night so will initiated Melatonin 6 mg and Remeron of 15 Dr. Valencia will see him PRN now Changed bed to make it more comfortable Bowels moved today 05/09/2021: Patient progressing well Bowels moved last night Vision is better in the right eye Somatic complaints 05/08/2021: Pt walking with a cane and a gait belt Left side neglect is noted Vision is improved Barium swallow will need to be done on the Pt as an outpatient Fish oil will be changed to bunny red per his home dose 05/07/2021: Pt doing pretty well but having things stuck in his throat He has had multiple EGDs and stretching before so will have Dr. Umana see him Multiple somatic complaints 05/06/2021: Patient doing really well today Bowels moved today Eating a bit more We will have speech therapy change diet 05/05/2021: Patient doing really well Seems to have little confidence Discontinue Carafate due to side effects Incision looks good on the right carotid Voiding well Bowels are moving 05/04/2021: Pt doing pretty well Walked in the halls Bowels moving a little bit now Urination doing pretty well 05/03/2021: Pt doing pretty well Cystoscope done and now voiding well DC Bactrim since he is having difficulty swallowing GERD issues continue Proton pump inhibitor and Carafate maintained Will have a suppository if bowels have not moved later 05/02/2021: Pt doing pretty well Became tearful a bit today No BM since 04/27 so laxatives given Nausea a bit last night Dr. Valencia saw him and will perform a cystoscopy tomorrow Dysphasia noted Left arm is tingling so hopefully we will regain some function Review of Systems General: Fatigue, Malaise Neurological: Weakness, Incoordination Objective Exam Vital Signs Vital Signs Date Time Temp Pulse Resp B/P (MAP) Pulse Ox O2 Delivery O2 Flow Rate FiO2 05/13/21 09:04 Room Air 05/13/21 07:44 36.6 78 20 116/58 (77) 95 Capillary Refill : General Appearance: No Apparent Distress, WD/WN, Chronically ill HEENT: PERRL/EOMI, Normal ENT Inspection, Pharynx Normal Neck: Full Range of Motion, Normal Inspection, Non Tender, Supple, Carotid Bruit Respiratory: Chest Non Tender, Lungs Clear, Normal Breath Sounds, No Accessory Muscle Use, No Respiratory Distress Cardiovascular: Regular Rate, Rhythm, Normal Peripheral Pulses Gastrointestinal: Normal Bowel Sounds, No Organomegaly, No Pulsatile Mass, Non Tender, Soft Back: Normal Inspection, No CVA Tenderness, No Vertebral Tenderness Extremity: Normal Capillary Refill, Non Tender, No Calf Tenderness, No Pedal Edema Neurologic/Psychiatric: Alert, Oriented x3, Normal Mood/Affect, Motor Weakness (Left-sided weakness upper and lower extremities) Skin: Normal Color, Warm/Dry Lymphatic: No Adenopathy Results/Procedures Lab Patient resulted labs reviewed. FIM Transfers Therapy Code Descriptions/Definitions Functional [place] Measure: 0=Not Assessed/NA 4=Minimal Assistance 1=Total Assistance 5=Supervision or Setup 2=Maximal Assistance 6=Modified [place] 3=Moderate Assistance 7=Complete IndependenceSCALE: Activities may be completed with or without assistive devices. 4-Pfahffpaoy-juedkmr completes the activity by him/herself with no assistance from a helper. 5-Set-up or Clean-up Assistance-helper sets up or cleans up; patient completes activity. [place] assists only prior to or following the activity. 4-Supervision or Touching Assistance-helper provides verbal cues and/or touching/steadying and/or contact guard assistance as patient completes activity. Assistance may be provided throughout the activity or intermittently. 3-Partial/Moderate Assistance-helper does LESS THAN HALF the effort. [place] lifts, holds or supports trunk or limbs, but provides less than half the effort. 2-Substantial/Maximal Assistance-helper does MORE THAN HALF the effort. [place] lifts or holds trunk or limbs and provides more than half the effort. 3-Qqvjykpqr-xzyops does ALL the effort. Patient does none of the effort to complete the activity. Or, the assistance of 2 or more helpers is required for the patient to complete the activity. If activity was not attempted, code reason: 7-Patient Refused. 9-Not Applicable-not attempted and the patient did not perform the activity before the current illness, exacerbation or injury. 10-Not Attempted due to Environmental Limitations-(lack of equipment, weather restraints, etc.). 88-Not Attempted due to Medical Conditions or Safety Concerns. Roll Left to Right (QC): 6 Sit to Lying (QC): 4 (SBA) Sit to Stand (QC): 5 Chair/Sxu-lq-Ykulp Xfer(QC): 4 Car Transfer (QC): 3 Gait Training Does the Patient Walk?: Yes Distance: 150' Walk 10 feet (QC): 4 Walk 50 ft with 2 Turns(QC): 4 Walk 150 ft (QC): 4 Walking 10ft/uneven surface-QC: 88 Gait Persons Needed: 1 Gait Assistive Device: Cane Large Base Quad Wheelchair Training Does the Pt Use a Wheelchair?: No Distance: 400' Wheel 50 ft with 2 turns (QC): 3 Wheel 150 ft (QC): 3 Type of Wheelchair: Manual Stair Training 1 Step (curb) (QC): 88 4 Steps (QC): 88 12 Steps (QC): 88 Balance Picking up an Object (QC): 88 ADL-Treatment Eating (QC): 5 (Set up required then uses hands or regular utensils to eat.) Oral Hygiene (QC): 4 (verbal cues) Bathing Location: L Arm, R Arm, L Upper Leg, R Upper Leg, L Lower Leg (including foot), R Lower Leg (including foot), Chest, Abdomen, Buttocks, Perineal Area Shower/Bathe Self (QC): 3 Upper Body Dressing (QC): 3 (Min. A Pt. required instruction and help threading left arm into arm hole and then cues to continue sequencing until complete.) Lower Body Dressing (QC): 2 (Mod A. needed verbal cue identifying that shorts were on backwards and to switch them around then to pull up L LE. 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 Umana Plan: Aggressive therapy Urology consult Monitor closely 05/02/2021: Appreciate urology Cystoscopy tomorrow Bowel regimen 05/03/2021: Status post cystoscopy Voiding well now DC Bactrim 05/04/2021: Much improved Moving around much better Monitor bowel function 05/05/2021: Supportive care Ambulating well 05/06/2021: Supportive care Monitor closely 05/07/2021: Dr. Umana appreciated Dysphagia management 05/08/2021: Monitor closely Dysphagia management 05/09/2021: Supportive care Dysphagia management Monitor closely 05/10/2021: Focus on insomnia tonight Monitor closely 05/11/2021: Supportive care Monitor closely 05/12/21: Monitor closely Monitor pain 05/13/21: Monitor dysphagia Fall risk (1) CVA (cerebral vascular accident) GUILLERMO CABELLO DO May 13, 2021 05:43
[2021-05-13 07:44] VITALS: BP 116/58
[2021-05-13] MEDS: ASPIRIN E.C. 81 MG (ECOTRIN) TAB PO SCH (08:31)
[2021-05-13] MEDS: CLOPIDOGREL 75 MG (PLAVIX) TABLET PO SCH (08:31)
[2021-05-13] MEDS: amLODIPine 5 MG (NORVASC) TAB PO SCH (08:31)
[2021-05-13] MEDS: PANTOPRAZOLE 40 MG (PROTONIX) TAB PO SCH ×2 (08:31→20:01)
[2021-05-13] MEDS: LACTOBACILLUS ACIDOPHILUS (PROBIOTIC) CAPSULE PO SCH (08:31)
[2021-05-13] MEDS: MEGA RED PO SCH (08:32)
[2021-05-13] MEDS: DOCUSATE SODIUM 100 MG (COLACE) CAP PO SCH ×2 (08:32→20:40)
[2021-05-13] MEDS: SENNA W/DOCUSATE (SENOKOT S) TABLET PO SCH ×2 (08:33→20:40)
[2021-05-13] MEDS: polyethylene glycoL POWDER 17 GM (MIRALAX) PACK PO SCH ×2 (08:33→20:40)
[2021-05-13] MEDS: TAMSULOSIN 0.4 MG (FLOMAX) CAP PO SCH (17:40)
[2021-05-13] MEDS: DICLOFENAC 1% GEL 100 GM (VOLTAREN) TUBE TOP PRN (19:57)
[2021-05-13] MEDS: MELATONIN 3 MG TABLET PO SCH (20:00)
[2021-05-13] MEDS: ACETAMINOPHEN 325 MG TABLET PO PRN (20:01)
[2021-05-13] MEDS: MIRTAZAPINE 15 MG (REMERON) TAB PO SCH (20:01)
[2021-05-13 20:18] VITALS: BP 122/60
[2021-05-14 06:13] LABS: BASOPHILS # (AUTO) 0.1 10^3/uL (0.0-0.1); BASOPHILS % (AUTO) 1 % (0-10); EOSINOPHILS # (AUTO) 0.4 10^3/uL (0.0-0.3); EOSINOPHILS % (AUTO) 7 % (0-10); HEMATOCRIT 35 % (40-54); HEMOGLOBIN 10.9 g/dL (13.3-17.7); LYMPHOCYTES % (AUTO) 38 % (12-44); MEAN CORPUSCULAR HEMOGLOBIN 29 pg (25-34); MEAN CORPUSCULAR HGB CONC 32 g/dL (32-36); MEAN CORPUSCULAR VOLUME 91 fL (80-99); MEAN PLATELET VOLUME 9.8 fL (9.0-12.2); MONOCYTES # (AUTO) 0.5 10^3/uL (0.0-1.0); MONOCYTES % (AUTO) 8 % (0-12); NEUTROPHILS # (AUTO) 2.4 10^3/uL (1.8-7.8); NEUTROPHILS % (AUTO) 46 % (42-75); PLATELET COUNT 271 10^3/uL (130-400); WHITE BLOOD COUNT 5.4 10^3/uL (4.3-11.0)
[2021-05-14 06:26] LABS: ALBUMIN 3.1 GM/DL (3.2-4.5); POTASSIUM 3.4 MMOL/L (3.6-5.0)
[2021-05-14 06:27] LABS: CALCIUM 8.5 MG/DL (8.5-10.1)
[2021-05-14 06:30] LABS: BILIRUBIN,TOTAL 0.3 MG/DL (0.1-1.0)
[2021-05-14 06:32] LABS: CREATININE SERUM 0.91 MG/DL (0.60-1.30)
--- NOTE | 2021-05-14 06:59 | PM&R Progress Note ---
Subjective HPI/CC On Admission Date Seen by Provider: May 14, 2021 Time Seen by Provider: 09:00 Subjective/Events-last exam 05/14/2021: Pt doing really well Potassium 3.4 Bowels moving Feels like he is not doing well but he is 05/13/21: Slept a bit better No dizziness after getting up this morning Somatic complaints Very slow recovery mentally from CVA 05/12/21: Patient doing well Not sleeping too well at times No falls Walking well Voiding well 05/11/2021: Patient feels pretty good Slept very well last night No change in medication Patient doing pretty well 05/10/2021: Pt doing really well He didnt sleep again well last night so will initiated Melatonin 6 mg and Remeron of 15 Dr. Valencia will see him PRN now Changed bed to make it more comfortable Bowels moved today 05/09/2021: Patient progressing well Bowels moved last night Vision is better in the right eye Somatic complaints 05/08/2021: Pt walking with a cane and a gait belt Left side neglect is noted Vision is improved Barium swallow will need to be done on the Pt as an outpatient Fish oil will be changed to bunny red per his home dose 05/07/2021: Pt doing pretty well but having things stuck in his throat He has had multiple EGDs and stretching before so will have Dr. Umana see him Multiple somatic complaints 05/06/2021: Patient doing really well today Bowels moved today Eating a bit more We will have speech therapy change diet 05/05/2021: Patient doing really well Seems to have little confidence Discontinue Carafate due to side effects Incision looks good on the right carotid Voiding well Bowels are moving 05/04/2021: Pt doing pretty well Walked in the halls Bowels moving a little bit now Urination doing pretty well 05/03/2021: Pt doing pretty well Cystoscope done and now voiding well DC Bactrim since he is having difficulty swallowing GERD issues continue Proton pump inhibitor and Carafate maintained Will have a suppository if bowels have not moved later 05/02/2021: Pt doing pretty well Became tearful a bit today No BM since 04/27 so laxatives given Nausea a bit last night Dr. Valencia saw him and will perform a cystoscopy tomorrow Dysphasia noted Left arm is tingling so hopefully we will regain some function Review of Systems Neurological: Weakness, Incoordination Objective Exam Vital Signs Vital Signs Date Time Temp Pulse Resp B/P (MAP) Pulse Ox O2 Delivery O2 Flow Rate FiO2 05/14/21 21:30 Room Air 05/14/21 19:25 37.4 81 18 94/50 (65) 97 Capillary Refill : General Appearance: No Apparent Distress, WD/WN, Chronically ill HEENT: PERRL/EOMI, Normal ENT Inspection, Pharynx Normal Neck: Full Range of Motion, Normal Inspection, Non Tender, Supple, Carotid Bruit Respiratory: Chest Non Tender, Lungs Clear, Normal Breath Sounds, No Accessory Muscle Use, No Respiratory Distress Cardiovascular: Regular Rate, Rhythm, Normal Peripheral Pulses Gastrointestinal: Normal Bowel Sounds, No Organomegaly, No Pulsatile Mass, Non Tender, Soft Back: Normal Inspection, No CVA Tenderness, No Vertebral Tenderness Extremity: Normal Capillary Refill, Non Tender, No Calf Tenderness, No Pedal Edema Neurologic/Psychiatric: Alert, Oriented x3, Normal Mood/Affect, Motor Weakness (Left-sided weakness upper and lower extremities) Skin: Normal Color, Warm/Dry Lymphatic: No Adenopathy Results/Procedures Lab Laboratory Tests 05/14/21 05:53 Patient resulted labs reviewed. FIM Transfers Therapy Code Descriptions/Definitions Functional [place] Measure: 0=Not Assessed/NA 4=Minimal Assistance 1=Total Assistance 5=Supervision or Setup 2=Maximal Assistance 6=Modified [place] 3=Moderate Assistance 7=Complete IndependenceSCALE: Activities may be completed with or without assistive devices. 8-Fhhcbkzuiq-emoqheg completes the activity by him/herself with no assistance from a helper. 5-Set-up or Clean-up Assistance-helper sets up or cleans up; patient completes activity. [place] assists only prior to or following the activity. 4-Supervision or Touching Assistance-helper provides verbal cues and/or touching/steadying and/or contact guard assistance as patient completes activity. Assistance may be provided throughout the activity or intermittently. 3-Partial/Moderate Assistance-helper does LESS THAN HALF the effort. [place] lifts, holds or supports trunk or limbs, but provides less than half the effort. 2-Substantial/Maximal Assistance-helper does MORE THAN HALF the effort. [place] lifts or holds trunk or limbs and provides more than half the effort. 7-Nlfsimbiz-gvdiid does ALL the effort. Patient does none of the effort to complete the activity. Or, the assistance of 2 or more helpers is required for the patient to complete the activity. If activity was not attempted, code reason: 7-Patient Refused. 9-Not Applicable-not attempted and the patient did not perform the activity before the current illness, exacerbation or injury. 10-Not Attempted due to Environmental Limitations-(lack of equipment, weather restraints, etc.). 88-Not Attempted due to Medical Conditions or Safety Concerns. Roll Left to Right (QC): 6 Sit to Lying (QC): 4 (SBA) Sit to Stand (QC): 5 Chair/Cig-pr-Tagwx Xfer(QC): 4 Car Transfer (QC): 3 Gait Training Does the Patient Walk?: Yes Distance: 150' Walk 10 feet (QC): 4 Walk 50 ft with 2 Turns(QC): 4 Walk 150 ft (QC): 4 Walking 10ft/uneven surface-QC: 88 Gait Persons Needed: 1 Gait Assistive Device: Cane Large Base Quad Wheelchair Training Does the Pt Use a Wheelchair?: No Distance: 400' Wheel 50 ft with 2 turns (QC): 3 Wheel 150 ft (QC): 3 Type of Wheelchair: Manual Stair Training 1 Step (curb) (QC): 88 4 Steps (QC): 88 12 Steps (QC): 88 Balance Picking up an Object (QC): 88 ADL-Treatment Eating (QC): 5 (Set up required then uses hands or regular utensils to eat.) Oral Hygiene (QC): 4 (verbal cues) Bathing Location: L Arm, R Arm, L Upper Leg, R Upper Leg, L Lower Leg (including foot), R Lower Leg (including foot), Chest, Abdomen, Buttocks, Perineal Area Shower/Bathe Self (QC): 3 Upper Body Dressing (QC): 3 (Min. A Pt. required instruction and help threading left arm into arm hole and then cues to continue sequencing until complete.) Lower Body Dressing (QC): 2 (Mod A. needed verbal cue identifying that shorts were on backwards and to switch them around then to pull up L LE. 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 Umana Plan: Aggressive therapy Urology consult Monitor closely 05/02/2021: Appreciate urology Cystoscopy tomorrow Bowel regimen 05/03/2021: Status post cystoscopy Voiding well now DC Bactrim 05/04/2021: Much improved Moving around much better Monitor bowel function 05/05/2021: Supportive care Ambulating well 05/06/2021: Supportive care Monitor closely 05/07/2021: Dr. Umana appreciated Dysphagia management 05/08/2021: Monitor closely Dysphagia management 05/09/2021: Supportive care Dysphagia management Monitor closely 05/10/2021: Focus on insomnia tonight Monitor closely 05/11/2021: Supportive care Monitor closely 05/12/21: Monitor closely Monitor pain 05/13/21: Monitor dysphagia Fall risk 05/14/2021: Supportive care Build confidence (1) CVA (cerebral vascular accident) GUILLERMO CABELLO DO May 14, 2021 06:59
[2021-05-14] MEDS: SENNA W/DOCUSATE (SENOKOT S) TABLET PO SCH ×2 (07:20→21:35)
[2021-05-14] MEDS: amLODIPine 5 MG (NORVASC) TAB PO SCH (07:20)
[2021-05-14] MEDS: DOCUSATE SODIUM 100 MG (COLACE) CAP PO SCH ×2 (07:20→21:34)
[2021-05-14] MEDS: LACTOBACILLUS ACIDOPHILUS (PROBIOTIC) CAPSULE PO SCH (07:20)
[2021-05-14] MEDS: CLOPIDOGREL 75 MG (PLAVIX) TABLET PO SCH (07:20)
[2021-05-14] MEDS: PANTOPRAZOLE 40 MG (PROTONIX) TAB PO SCH ×2 (07:20→21:28)
[2021-05-14] MEDS: ASPIRIN E.C. 81 MG (ECOTRIN) TAB PO SCH (07:20)
[2021-05-14] MEDS: MEGA RED PO SCH (07:21)
[2021-05-14 07:24] VITALS: BP 118/60
[2021-05-14] MEDS: polyethylene glycoL POWDER 17 GM (MIRALAX) PACK PO SCH ×2 (08:06→21:34)
[2021-05-14] MEDS ORDERED: KCL 10 MEQ TAB (MICRO K) PO ONE (09:30)
--- NOTE | 2021-05-14 09:58 | Occupational Ther Daily Note ---
OT Current Status-Daily Note Subjective Pt dozing in bed, opened eyes to name. Pt agrees to therapy. C/o fatigue, no pain. Mental Status/Objective Patient Orientation: Person, Place, Time, Situation ADL-Treatment Pt agrees to shower. Mod I using grabbars and HOB elevated for supine<-->sittin g EOB. CGA to ambulate to bathroom door using cane. Pt. performed oral hygiene and shaving at sink in w/c independently. CGA to transfer to/from toilet. CGA for pt to hike pants over hips then performed toilet hygiene sitting on toilet independently. Pt. transferred to shower bench CGA. Pt. cleansed self independently except for buttocks. Pt. rinsed self independently. Pt. dried self independently except buttocks. Pt. transferred back to w/c for dressing. Pt. threaded pants over feet with verbal cues and min A then assist to stabilize self in standing while hiking pants over L hip and assist to hike over R hip. Pt. completed UE dressing with verbal cues and mod A. Pt. don L sock by placing Dycem on R knee crossing left ankle on R knee and using one handed technique with less verbal cues than previously. Pt. donned R sock using set up sock aid and verbal cues. Therapy Code Descriptions/Definitions Functional [place] Measure: 0=Not Assessed/NA 4=Minimal Assistance 1=Total Assistance 5=Supervision or Setup 2=Maximal Assistance 6=Modified [place] 3=Moderate Assistance 7=Complete IndependenceSCALE: Activities may be completed with or without assistive devices. 5-Yepnyayapa-hbgiyiw completes the activity by him/herself with no assistance from a helper. 5-Set-up or Clean-up Assistance-helper sets up or cleans up; patient completes activity. [place] assists only prior to or following the activity. 4-Supervision or Touching Assistance-helper provides verbal cues and/or touching/steadying and/or contact guard assistance as patient completes activity. Assistance may be provided throughout the activity or intermittently. 3-Partial/Moderate Assistance-helper does LESS THAN HALF the effort. [place] lifts, holds or supports trunk or limbs, but provides less than half the effort. 2-Substantial/Maximal Assistance-helper does MORE THAN HALF the effort. [place] lifts or holds trunk or limbs and provides more than half the effort. 0-Vxwtfcjfq-lptvdr does ALL the effort. Patient does none of the effort to complete the activity. Or, the assistance of 2 or more helpers is required for the patient to complete the activity. If activity was not attempted, code reason: 7-Patient Refused. 9-Not Applicable-not attempted and the patient did not perform the activity before the current illness, exacerbation or injury. 10-Not Attempted due to Environmental Limitations-(lack of equipment, weather restraints, etc.). 88-Not Attempted due to Medical Conditions or Safety Concerns. Oral Hygiene (QC): 6 Shower/Bathe Self (QC): 3 Upper Body Dressing (QC): 3 Lower Body Dressing (QC): 3 On/Off Footwear: 3 Toileting Hygiene (QC): 3 Toilet Transfer (QC): 4 Other Treatment Co-treat with PT([id number]), 2 clinicians required for skilled instruction to increase L UE/LE strength/AROM, decrease fall risk and increase functional mobility. Pt stood at parallel bars to wt bear with L UE and strengthen R UE with fine/gross motor strengthening activities. Pt then ambulated with PT using quadcane around [facility]. Pt left in care of PT. All needs met. OT Short Term Goals Short Term Goals Time Frame: May 11, 2021 Shower/bathe self: 3 Upper body dressin Lower body dressin Putting on/taking off footwear: 3 OT Crystalizer Tender Goals Senior Living Goals Time Frame: Jun 01, 2021 Eating (QC): 5 Oral Hygiene (QC): 5 Toileting Hygiene (QC): 4 Shower/Bathe Self (QC): 4 Upper Body Dressing (QC): 5 Lower Body Dressing (QC): 4 On/Off Footwear (QC): 4 Additional Goals: 1-Demonstrate ADL Tasks, 2-Verbalize Understanding, 3- ImproveStrength/Jose Carlos 1=Demonstrate adherence to instructed precautions during ADL tasks. 2=Patient will verbalize/demonstrate understanding of assistive devices/mo difications for ADL. 3=Patient will improve strength/tolerance for activity to enable patient to perform ADL's. OT Education/Plan Problem List/Assessment Assessment: Decreased Activ Tolerance, Decreased Safety Aware (L neglect), Decreased UE Strength, Impaired Coordination, Impaired Funct Balance, Impaired Self-Care Skills, Restricted Funct UE ROM, Visual-Perceptual Deficit (L visual field cut) Discharge Recommendations Plan/Recommendations: Continue POC Treatment Plan/Plan of Care Patient would benefit from OT for education, treatment and training to promote independence in ADL's, mobility, safety and/or upper extremity function for ADL's. Plan of Care: ADL Retraining, Functional Mobility, Group Exercise/Act as Ind, UE Funct Exercise/Act Treatment Duration: Jun 01, 2021 Frequency: 2 times per week Estimated Hrs Per Day: 1.5 hours per day Agreement: Yes Rehab Potential: Fair Time/GCodes Start Time: 09:00 Stop Time: 10:30 Total Time Billed (hr/min): 90 Billed Treatment Time 1 visit-ADL 5 (70 min) NM 1 (20 min) co-treat with PT [id number], individual [id number] AAKASH HODGES May 14, 2021 09:58
--- NOTE | 2021-05-14 11:10 | Speech Therapy Daily Note ---
Speech Daily Progress Note Subjective Date Seen by Provider: May 14, 2021 Time Seen by Provider: 00:30 Patient was resting in his recliner following his OT and PT sessions. He states they "wore me out today" Objective Patient completed safety intake of regular snack with thin liquids without s/s of aspiration. Assessment Assessment Current Status: Good Progress Treatment Plan Continue Plan of Care Speech Short Term Goals Short Term Goals Short Term Goals 1) Patient will tolerate least restrictive diet level without s/s of aspiration at 90% or greater. 2) Patient will utilize compensatory strategies for safe oral intake at 90% or greater with minimal cues. Speech Mcfp Goals Manager Administrative Goals Patient will maintain adequate nutrition/hydration via safe effective swallow function. Speech-Plan Patient/Family Goals Patient/Family Goals: Patient plans on returning to his home where he lives with his . Treatment Plan Speech Therapy Treatment Plan: Continue Plan of Care Treatment Duration: May 18, 2021 Frequency: 4 times per week (Patient will receive skilled ST 4-5x per week) Estimated Hrs Per Day: .5 hour per day Rehab Potential: Fair Barriers to Learning: Patient's recent CVA Pt/Family Agrees to Plan: Yes Safety Risks/Education Teaching Recipient: Patient Teaching Methods: Demonstration, Discussion Response to Teaching: Verbalize Understanding, Return Demonstration Education Topics Provided: Continued safety with oral intake Time Speech Therapy Time In: 11:00 Speech Therapy Time Out: 11:30 Total Billed Time: 30 Billed Treatment Time 1, PITO Turner May 14, 2021 11:10
--- NOTE | 2021-05-14 11:33 | Physical Therapy Daily Note ---
PT Daily Note-Current Subjective Pt sitting in Therapy Gym working w/OT upon arrival. Pt agrees to short co- treat then Ind. w/PT. Pain Location: No Pain Reported Mental Status Patient Orientation: Person, Place, Situation Transfers SCALE: Activities may be completed with or without assistive devices. 8-Qbvqfgcorv-iheimzr completes the activity by him/herself with no assistance from a helper. 5-Set-up or Clean-up Assistance-helper sets up or cleans up; patient completes activity. [place] assists only prior to or following the activity. 4-Supervision or Touching Assistance-helper provides verbal cues and/or touching/steadying and/or contact guard assistance as patient completes activity. Assistance may be provided throughout the activity or intermittently. 3-Partial/Moderate Assistance-helper does LESS THAN HALF the effort. [place] lifts, holds or supports trunk or limbs, but provides less than half the effort. 2-Substantial/Maximal Assistance-helper does MORE THAN HALF the effort. [place] lifts or holds trunk or limbs and provides more than half the effort. 8-Vzdcmrpcd-bgluho does ALL the effort. Patient does none of the effort to complete the activity. Or, the assistance of 2 or more helpers is required for the patient to complete the activity. If activity was not attempted, code reason: 7-Patient Refused. 9-Not Applicable-not attempted and the patient did not perform the activity before the current illness, exacerbation or injury. 10-Not Attempted due to Environmental Limitations-(lack of equipment, weather restraints, etc.). 88-Not Attempted due to Medical Conditions or Safety Concerns. Sit to Stand (QC): 4 Weight Bearing Full Weight Bearing Full Weight Bearing Gait Training Does the Patient Walk?: Yes Distance: 150', 100' Walk 10 feet (QC): 4 Walk 50 ft with 2 Turns(QC): 4 Walk 150 ft (QC): 4 Gait Persons Needed: 1 Gait Assistive Device: Cane Large Base Quad Pt gait involved scissoring with veering to L side. Pt required multiple VC and TC to stay centered with gt. With turns, pt scissored w/ acceleration and slight L lean. Wheelchair Training Does the Pt Use a Wheelchair?: No Exercises Seated Therapy Exercises: Ankle pumps, Long arc quads, Hip flexion, Hip abd/add, Glut set Seated Reps: 15 Standing: Mini squats (2 sets), Sit to Stand Standing Reps: 15 Treatments [id number]: During tx, need for two skilled clinicians d/t poor balance and easily fatigued. PT focused on dynamic standing balance and transfers, as well gait training. OT focuses on L UE landscape foreman strength as well as visual scanning. Pt performed standing dynamic balance while performing UE landscape foreman strengthening involving cones and clothes pins. Pt amb from gym 150' to room for seated rest break. OT then finished their tx. Pt performed sit to stand activity x15. Pt required VC to use L UE to A with pushing off chair as well as reaching back with L UE to grab chair arm when sitting. Pt amb 100' with one seated rest b reak. Pt returned to recliner with call light in hand. [id number]: Pt completes Seated Ex with RB as needed. Pt resting and about to have lunch at end of tx. All needs met, call light in hand. Assessment Current Status: Good Progress Pt continues to gain improvements in transfers, ambulation and even use of L UE. Pt still fatigues at times and needs RB. PT Short Term Goals Short Term Goals Time Frame: May 08, 2021 Roll Left & Right: 4 Sit to lyin (Cynthia) Lying to sitting on side of be: 3 (Cynthia) Sit to stand: 3 (Cynthia) Chair/ykv-hl-kdboh transfer: 3 (Cynthia) Walk 10 feet: 3 (Cynthia) Walk 50 feet with two turns: 3 (Cynthia) PT Business Development Professional Goals Business Development Professional Goals PT Business Development Professional Goals Time Frame: May 22, 2021 Roll Left & Right (QC): 6 Sit to Lying (QC): 4 (SBA) Lying-Sitting on Side/Bed(QC): 4 (SBA) Sit to Stand (QC): 4 (SBA) Chair/Mwx-gd-Hhjnx Xfer(QC): 4 (SBA) Toilet Transfer (QC): 4 (SBA) Car Transfer (QC): 4 (SBA) Does the Patient Walk: Yes Walk 10 feet (QC): 4 (CGA) Walk 50ft with 2 Turns (QC): 4 (CGA) Walk 150 ft (QC): 88 Walking 10ft on Uneven Surface: 4 (CGA) 1 Step (curb) (QC): 4 (CGA) 4 Steps (QC): 4 (CGA) 12 Steps (QC): 88 Picking up an Object (QC): 88 Wheel 50 feet with 2 turns (QC: 5 Wheel 150 feet: 5 PT Plan Problem List Problem List: Activity Tolerance, Gait Treatment/Plan Treatment Plan: Continue Plan of Care Treatment Plan: Bed Mobility, Education, Functional Activity Jose Carlos, Functional Strength, Group Therapy, Gait, Safety, Therapeutic Exercise, Transfers Treatment Duration: May 22, 2021 Frequency: At least 5 of 7 days/Wk (IRF) Estimated Hrs Per Day: 1.5 hours per day Patient and/or Family Agrees t: Yes Safety Risks/Education Patient Education: Gait Training, Transfer Techniques, Correct Positioning, Safety Issues Teaching Recipient: Patient Teaching Methods: Discussion Response to Teaching: Verbalize Understanding Time/GCodes Time In: 1000 Time Out: 1045 Total Billed Treatment Time: 45 Total Billed Treatment [id number]: GT x2 (25m) & FA (20m) 5030-2500: 1, EX (15m) TAYLA KERNS SQL DATA ARCHITECT May 14, 2021 11:33
[2021-05-14] MEDS: TAMSULOSIN 0.4 MG (FLOMAX) CAP PO SCH (17:25)
[2021-05-14 19:25] VITALS: BP 94/50
[2021-05-14] MEDS: MELATONIN 3 MG TABLET PO SCH (21:28)
[2021-05-14] MEDS: MIRTAZAPINE 15 MG (REMERON) TAB PO SCH (21:28)
[2021-05-15] MEDS: KCL 10 MEQ TAB (MICRO K) PO SCH (06:29)
[2021-05-15 07:13] VITALS: BP 104/58
[2021-05-15] MEDS: ASPIRIN E.C. 81 MG (ECOTRIN) TAB PO SCH (07:15)
[2021-05-15] MEDS: amLODIPine 5 MG (NORVASC) TAB PO SCH (07:15)
[2021-05-15] MEDS: LACTOBACILLUS ACIDOPHILUS (PROBIOTIC) CAPSULE PO SCH (07:15)
[2021-05-15] MEDS: DOCUSATE SODIUM 100 MG (COLACE) CAP PO SCH ×2 (07:15→19:35)
[2021-05-15] MEDS: PANTOPRAZOLE 40 MG (PROTONIX) TAB PO SCH ×2 (07:16→19:36)
[2021-05-15] MEDS: SENNA W/DOCUSATE (SENOKOT S) TABLET PO SCH ×2 (07:16→19:36)
[2021-05-15] MEDS: CLOPIDOGREL 75 MG (PLAVIX) TABLET PO SCH (07:16)
[2021-05-15] MEDS: MEGA RED PO SCH (07:18)
--- NOTE | 2021-05-15 09:59 | Occupational Ther Daily Note ---
OT Current Status-Daily Note Subjective Pt alert, lying in bed. Pt agrees to therapy. No c/o pain. Pt states that he has an adjustable bed at home. Mental Status/Objective Patient Orientation: Person, Place, Time, Situation ADL-Treatment 1st session([id number])With HOB raised, pt able to go from supine to EOB independently. Close SBA for SPT from EOB to w/c. Min A to don L sock and set up to don sock with sock aide. Pt propelled w/c to sink in bathroom to complete oral care independently. CGA for toilet transfer using grabbars and w/c. CGA to manipulate clothing for toilet. Therapy Code Descriptions/Definitions Functional [place] Measure: 0=Not Assessed/NA 4=Minimal Assistance 1=Total Assistance 5=Supervision or Setup 2=Maximal Assistance 6=Modified [place] 3=Moderate Assistance 7=Complete IndependenceSCALE: Activities may be completed with or without assistive devices. 0-Nvlbjkljii-ikclekx completes the activity by him/herself with no assistance from a helper. 5-Set-up or Clean-up Assistance-helper sets up or cleans up; patient completes activity. [place] assists only prior to or following the activity. 4-Supervision or Touching Assistance-helper provides verbal cues and/or [place]/steadying and/or contact guard assistance as patient completes activity. Assistance may be provided throughout the activity or intermittently. 3-Partial/Moderate Assistance-helper does LESS THAN HALF the effort. [place] lifts, holds or supports trunk or limbs, but provides less than half the effort. 2-Substantial/Maximal Assistance-helper does MORE THAN HALF the effort. [place] lifts or holds trunk or limbs and provides more than half the effort. 5-Vfldejbcg-midepc does ALL the effort. Patient does none of the effort to complete the activity. Or, the assistance of 2 or more helpers is required for the patient to complete the activity. If activity was not attempted, code reason: 7-Patient Refused. 9-Not Applicable-not attempted and the patient did not perform the activity before the current illness, exacerbation or injury. 10-Not Attempted due to Environmental Limitations-(lack of equipment, weather restraints, etc.). 88-Not Attempted due to Medical Conditions or Safety Concerns. Oral Hygiene (QC): 6 On/Off Footwear: 3 Toileting Hygiene (QC): 4 Toilet Transfer (QC): 4 Other Treatment 1st session([id number]), Pt propelled w/c to therapy gym with 1 cue to turn L and 1 cue to scan toward L before running into object. Pt completed B UE exercises to increase good L UE mechanics and B UE strength for daily functional tasks. Arm bike using minimal resistance completed for 1 min without L hand being supported then pt fatigued and assist with hand over hand and CECILE wrap. Then for 5 more minutes alternated between only using L hand and using B hands to complete 6 min with arm bike. Pt working on visual scanning (L<->R,Up<->down) while using L UE gross manipulation of cards to gather in designated area. Cues needed for visual scanning to reach all cards without pushing off of table. 2nd session([id number]), Pt completed B UE dowel allegra exercises with assist to maintain L sales recruitment specialist to increase strength and movement for daily functional tasks. 3 sets 10 reps of bicep curls, horizontal shldr abd/add and shldr flexion. Completed with resistance for bicep curls and rows, 3 sets 10 reps. Pt then transferred to recliner with CGA. Able to picking machine operator wadded up paper towels with R and L hand when placed on floor 2 sets 5 reps. After session, pt sitting in recliner with call light/phone in reach. All needs met in room. OT Short Term Goals Short Term Goals Time Frame: May 11, 2021 Shower/bathe self: 3 Upper body dressin Lower body dressin Putting on/taking off footwear: 3 OT Gravity Prospecting Operator Goals Correction Goals Time Frame: Jun 01, 2021 Eating (QC): 5 Oral Hygiene (QC): 5 Toileting Hygiene (QC): 4 Shower/Bathe Self (QC): 4 Upper Body Dressing (QC): 5 Lower Body Dressing (QC): 4 On/Off Footwear (QC): 4 Additional Goals: 1-Demonstrate ADL Tasks, 2-Verbalize Understanding, 3- ImproveStrength/Jose Carlos 1=Demonstrate adherence to instructed precautions during ADL tasks. 2=Patient will verbalize/demonstrate understanding of assistive devices/modifications for ADL. 3=Patient will improve strength/tolerance for activity to enable patient to perform ADL's. OT Education/Plan Problem List/Assessment Assessment: Decreased Activ Tolerance, Decreased UE Strength, Impaired Coordination, Impaired Funct Balance, Impaired Self-Care Skills, Restricted Funct UE ROM, Visual-Perceptual Deficit Discharge Recommendations Plan/Recommendations: Continue POC Treatment Plan/Plan of Care Patient would benefit from OT for education, treatment and training to promote independence in ADL's, mobility, safety and/or upper extremity function for ADL's. Plan of Care: ADL Retraining, Functional Mobility, Group Exercise/Act as Ind, UE Funct Exercise/Act Treatment Duration: Jun 01, 2021 Frequency: 2 times per week Estimated Hrs Per Day: 1.5 hours per day Agreement: Yes Rehab Potential: Fair Time/GCodes Start Time: 09:00 (1130) Stop Time: 10:00 (1200) Total Time Billed (hr/min): 90 Billed Treatment Time 1 visit([id number]) ADL 2 (30 min) EX 1 (15 min) FA 1 (15 min) 1 visit([id number]) EX 2 (30 min) AAKASH HODGES May 15, 2021 09:59
--- NOTE | 2021-05-15 10:54 | Physical Therapy Daily Note ---
PT Daily Note-Current Subjective Patient in therapy gym pre tx, agrees to PT, has no complaints of pain. Appearance Patient in bed post tx with nurse call, phone, tray, all needs met, bed alarm on. Mental Status Patient Orientation: Person, Place, Situation Transfers SCALE: Activities may be completed with or without assistive devices. 1-Hvxqljqyjd-cotolry completes the activity by him/herself with no assistance from a helper. 5-Set-up or Clean-up Assistance-helper sets up or cleans up; patient completes activity. [place] assists only prior to or following the activity. 4-Supervision or Touching Assistance-helper provides verbal cues and/or touching/steadying and/or contact guard assistance as patient completes activity. Assistance may be provided throughout the activity or intermittently. 3-Partial/Moderate Assistance-helper does LESS THAN HALF the effort. [place] lifts, holds or supports trunk or limbs, but provides less than half the effort. 2-Substantial/Maximal Assistance-helper does MORE THAN HALF the effort. [place] lifts or holds trunk or limbs and provides more than half the effort. 0-Ciriyvfct-eawnzt does ALL the effort. Patient does none of the effort to complete the activity. Or, the assistance of 2 or more helpers is required for the patient to complete the activity. If activity was not attempted, code reason: 7-Patient Refused. 9-Not Applicable-not attempted and the patient did not perform the activity before the current illness, exacerbation or injury. 10-Not Attempted due to Environmental Limitations-(lack of equipment, weather restraints, etc.). 88-Not Attempted due to Medical Conditions or Safety Concerns. Roll Left & Right (QC): 6 Sit to Lying (QC): 4 Sit to Stand (QC): 4 Chair/Pfy-aa-Lnofh Xfer(QC): 4 Weight Bearing Full Weight Bearing Full Weight Bearing Gait Training Distance: 150'x2, 120' Walk 10 feet (QC): 4 Walk 50 ft with 2 Turns(QC): 4 Walk 150 ft (QC): 4 Gait Persons Needed: 1 Gait Assistive Device: Cane Single Point Patient needs occasional steadying assist, leans a little to the left side but not enough to lose balance, his left neglect requires constant cues for direction and safety. Exercises Standing: Hip Abduction, Hamstring curls, Heel/toe raises, Marching, Mini squats Standing Reps: 15 sidestepping in parallel bars 6' x 6, SLS with right hand support 40 seconds each side NuStep Minutes: 15 NuStep Workload: 5 Treatments bed mobility and transfers, ambulation, LE strengthening, balance training Assessment Current Status: Fair Progress improved endurance, his left neglect continues to be a big obstacle PT Short Term Goals Short Term Goals Time Frame: May 08, 2021 Roll Left & Right: 4 Sit to lyin (Cynthia) Lying to sitting on side of be: 3 (Cynthia) Sit to stand: 3 (Cynthia) Chair/stn-na-syycj transfer: 3 (Cynthia) Walk 10 feet: 3 (Cynthia) Walk 50 feet with two turns: 3 (Cynthia) PT Fpc Goals Fpc Goals PT Fpc Goals Time Frame: May 22, 2021 Roll Left & Right (QC): 6 Sit to Lying (QC): 4 (SBA) Lying-Sitting on Side/Bed(QC): 4 (SBA) Sit to Stand (QC): 4 (SBA) Chair/Axu-uh-Ariou Xfer(QC): 4 (SBA) Toilet Transfer (QC): 4 (SBA) Car Transfer (QC): 4 (SBA) Does the Patient Walk: Yes Walk 10 feet (QC): 4 (CGA) Walk 50ft with 2 Turns (QC): 4 (CGA) Walk 150 ft (QC): 88 Walking 10ft on Uneven Surface: 4 (CGA) 1 Step (curb) (QC): 4 (CGA) 4 Steps (QC): 4 (CGA) 12 Steps (QC): 88 Picking up an Object (QC): 88 Wheel 50 feet with 2 turns (QC: 5 Wheel 150 feet: 5 PT Plan Problem List Problem List: Activity Tolerance, Functional Strength, Safety, Balance, Gait, Transfer, Bed Mobility, ROM Treatment/Plan Treatment Plan: Continue Plan of Care Treatment Plan: Bed Mobility, Education, Functional Activity Jose Carlos, Functional Strength, Group Therapy, Gait, Safety, Therapeutic Exercise, Transfers Treatment Duration: May 22, 2021 Frequency: At least 5 of 7 days/Wk (IRF) Estimated Hrs Per Day: 1.5 hours per day Patient and/or Family Agrees t: Yes Safety Risks/Education Patient Education: Gait Training, Transfer Techniques, Correct Positioning, Safety Issues Teaching Recipient: Patient Teaching Methods: Demonstration, Discussion Response to Teaching: Reinforcement Needed Time/GCodes Time In: 1000 Time Out: 1100 Total Billed Treatment Time: 60 Total Billed Treatment 1 visit EX 30' GT 30' FELIZ GRIMM PT May 15, 2021 10:54
--- NOTE | 2021-05-15 13:26 | Physical Therapy Daily Note ---
PT Daily Note-Current Subjective Patient in bed pre tx, agrees to PT, has no complaints of pain. Appearance Patient in bed post tx with nurse call, phone, bed alarm on. Mental Status Patient Orientation: Person, Place, Situation Transfers SCALE: Activities may be completed with or without assistive devices. 6-Tueemxyink-hncgzii completes the activity by him/herself with no assistance fr om a helper. 5-Set-up or Clean-up Assistance-helper sets up or cleans up; patient completes activity. [place] assists only prior to or following the activity. 4-Supervision or Touching Assistance-helper provides verbal cues and/or touching/steadying and/or contact guard assistance as patient completes activity. Assistance may be provided throughout the activity or intermittently. 3-Partial/Moderate Assistance-helper does LESS THAN HALF the effort. [place] lifts, holds or supports trunk or limbs, but provides less than half the effort. 2-Substantial/Maximal Assistance-helper does MORE THAN HALF the effort. [place] lifts or holds trunk or limbs and provides more than half the effort. 4-Rkgmbbmix-wjihdm does ALL the effort. Patient does none of the effort to complete the activity. Or, the assistance of 2 or more helpers is required for the patient to complete the activity. If activity was not attempted, code reason: 7-Patient Refused. 9-Not Applicable-not attempted and the patient did not perform the activity before the current illness, exacerbation or injury. 10-Not Attempted due to Environmental Limitations-(lack of equipment, weather restraints, etc.). 88-Not Attempted due to Medical Conditions or Safety Concerns. Roll Left & Right (QC): 6 Sit to Lying (QC): 4 Lying to Sitting/Side of Bed(Q: 4 Sit to Stand (QC): 4 Chair/Qaf-rh-Lsyuj Xfer(QC): 4 Weight Bearing Full Weight Bearing Full Weight Bearing Gait Training Distance: 150'x2 Walk 10 feet (QC): 4 Walk 50 ft with 2 Turns(QC): 4 Walk 150 ft (QC): 4 Gait Persons Needed: 1 Gait Assistive Device: Cane Single Point Patient needs steadying assist pretty often but has good step through and clearance on the left side now, frequent cues for direction due to his left neglect and visual impairments Stair Training Stair Training: Handrails/: 1 handrail #of Steps: 4 1 Step (curb) (QC): 3 4 Steps (QC): 3 Stairs: Pattern: Step to min assist for balance, cues for foot placement and positioning Exercises LAQ alternating for 5 min Treatments bed mobility and transfers, ambulation, stair training, LE strengthening Assessment Current Status: Fair Progress fair improvement overall but his neglect and visual impairments require assist from another person for transfers and ambulation and stairs PT Short Term Goals Short Term Goals Time Frame: May 08, 2021 Roll Left & Right: 4 Sit to lyin (Cynthia) Lying to sitting on side of be: 3 (Cynthia) Sit to stand: 3 (Cynthia) Chair/tpk-kl-wwhud transfer: 3 (Cynthia) Walk 10 feet: 3 (Cynthia) Walk 50 feet with two turns: 3 (Cynthia) PT Reimbursement Manager Goals Reimbursement Manager Goals PT Reimbursement Manager Goals Time Frame: May 22, 2021 Roll Left & Right (QC): 6 Sit to Lying (QC): 4 (SBA) Lying-Sitting on Side/Bed(QC): 4 (SBA) Sit to Stand (QC): 4 (SBA) Chair/Iep-ds-Vvycn Xfer(QC): 4 (SBA) Toilet Transfer (QC): 4 (SBA) Car Transfer (QC): 4 (SBA) Does the Patient Walk: Yes Walk 10 feet (QC): 4 (CGA) Walk 50ft with 2 Turns (QC): 4 (CGA) Walk 150 ft (QC): 88 Walking 10ft on Uneven Surface: 4 (CGA) 1 Step (curb) (QC): 4 (CGA) 4 Steps (QC): 4 (CGA) 12 Steps (QC): 88 Picking up an Object (QC): 88 Wheel 50 feet with 2 turns (QC: 5 Wheel 150 feet: 5 PT Plan Problem List Problem List: Activity Tolerance, Functional Strength, Safety, Balance, Gait, Transfer, Bed Mobility, ROM Treatment/Plan Treatment Plan: Continue Plan of Care Treatment Plan: Bed Mobility, Education, Functional Activity Jose Carlos, Functional Strength, Group Therapy, Gait, Safety, Therapeutic Exercise, Transfers Treatment Duration: May 22, 2021 Frequency: At least 5 of 7 days/Wk (IRF) Estimated Hrs Per Day: 1.5 hours per day Patient and/or Family Agrees t: Yes Safety Risks/Education Patient Education: Gait Training, Transfer Techniques, Steps, Correct Positioning, Safety Issues Teaching Recipient: Patient Teaching Methods: Demonstration, Discussion Response to Teaching: Reinforcement Needed Time/GCodes Time In: 1255 Time Out: 1325 Total Billed Treatment Time: 30 Total Billed Treatment 1 visit FA 30' FELIZ GRIMM PT May 15, 2021 13:26
[2021-05-15] MEDS: polyethylene glycoL POWDER 17 GM (MIRALAX) PACK PO SCH ×2 (17:33→19:25)
[2021-05-15] MEDS: TAMSULOSIN 0.4 MG (FLOMAX) CAP PO SCH (17:41)
[2021-05-15] MEDS: MIRTAZAPINE 15 MG (REMERON) TAB PO SCH (19:35)
[2021-05-15] MEDS: MELATONIN 3 MG TABLET PO SCH (19:36)
[2021-05-15 20:00] VITALS: BP 108/57
[2021-05-16] MEDS: KCL 10 MEQ TAB (MICRO K) PO SCH (06:22)
--- NOTE | 2021-05-16 07:09 | PM&R Progress Note ---
Subjective HPI/CC On Admission Date Seen by Provider: May 15, 2021 Time Seen by Provider: 10:00 Subjective/Events-last exam Ms. note inadvertently late entry 05/15/2021: Pt slept really well last night Bowels moved a couple of days ago No pain is reported Doing very well with a fabiano-cane 05/14/2021: Pt doing really well Potassium 3.4 Bowels moving Feels like he is not doing well but he is 05/13/21: Slept a bit better No dizziness after getting up this morning Somatic complaints Very slow recovery mentally from CVA 05/12/21: Patient doing well Not sleeping too well at times No falls Walking well Voiding well 05/11/2021: Patient feels pretty good Slept very well last night No change in medication Patient doing pretty well 05/10/2021: Pt doing really well He didnt sleep again well last night so will initiated Melatonin 6 mg and Remeron of 15 Dr. Valencia will see him PRN now Changed bed to make it more comfortable Bowels moved today 05/09/2021: Patient progressing well Bowels moved last night Vision is better in the right eye Somatic complaints 05/08/2021: Pt walking with a cane and a gait belt Left side neglect is noted Vision is improved Barium swallow will need to be done on the Pt as an outpatient Fish oil will be changed to bunny red per his home dose 05/07/2021: Pt doing pretty well but having things stuck in his throat He has had multiple EGDs and stretching before so will have Dr. Umana see him Multiple somatic complaints 05/06/2021: Patient doing really well today Bowels moved today Eating a bit more We will have speech therapy change diet 05/05/2021: Patient doing really well Seems to have little confidence Discontinue Carafate due to side effects Incision looks good on the right carotid Voiding well Bowels are moving 05/04/2021: Pt doing pretty well Walked in the halls Bowels moving a little bit now Urination doing pretty well 05/03/2021: Pt doing pretty well Cystoscope done and now voiding well DC Bactrim since he is having difficulty swallowing GERD issues continue Proton pump inhibitor and Carafate maintained Will have a suppository if bowels have not moved later 05/02/2021: Pt doing pretty well Became tearful a bit today No BM since 04/27 so laxatives given Nausea a bit last night Dr. Valencia saw him and will perform a cystoscopy tomorrow Dysphasia noted Left arm is tingling so hopefully we will regain some function Review of Systems General: Fatigue, Malaise Objective Exam Vital Signs Vital Signs Date Time Temp Pulse Resp B/P (MAP) Pulse Ox O2 Delivery O2 Flow Rate FiO2 05/15/21 20:00 37.6 72 18 108/57 (74) 96 Room Air Capillary Refill : General Appearance: No Apparent Distress, WD/WN, Chronically ill HEENT: PERRL/EOMI, Normal ENT Inspection, Pharynx Normal Neck: Full Range of Motion, Normal Inspection, Non Tender, Supple, Carotid Bruit Respiratory: Chest Non Tender, Lungs Clear, Normal Breath Sounds, No Accessory Muscle Use, No Respiratory Distress Cardiovascular: Regular Rate, Rhythm, Normal Peripheral Pulses Gastrointestinal: Normal Bowel Sounds, No Organomegaly, No Pulsatile Mass, Non Tender, Soft Back: Normal Inspection, No CVA Tenderness, No Vertebral Tenderness Extremity: Normal Capillary Refill, Non Tender, No Calf Tenderness, No Pedal Edema Neurologic/Psychiatric: Alert, Oriented x3, Normal Mood/Affect, Motor Weakness (Left-sided weakness upper and lower extremities) Skin: Normal Color, Warm/Dry Lymphatic: No Adenopathy Results/Procedures Lab Patient resulted labs reviewed. FIM Transfers Therapy Code Descriptions/Definitions Functional [place] Measure: 0=Not Assessed/NA 4=Minimal Assistance 1=Total Assistance 5=Supervision or Setup 2=Maximal Assistance 6=Modified [place] 3=Moderate Assistance 7=Complete IndependenceSCALE: Activities may be completed with or without assistive devices. 0-Pkdrpkozoj-ibwttoc completes the activity by him/herself with no assistance from a helper. 5-Set-up or Clean-up Assistance-helper sets up or cleans up; patient completes activity. [place] assists only prior to or following the activity. 4-Supervision or Touching Assistance-helper provides verbal cues and/or touching/steadying and/or contact guard assistance as patient completes activity. Assistance may be provided throughout the activity or intermittently. 3-Partial/Moderate Assistance-helper does LESS THAN HALF the effort. [place] lifts, holds or supports trunk or limbs, but provides less than half the effort. 2-Substantial/Maximal Assistance-helper does MORE THAN HALF the effort. [place] lifts or holds trunk or limbs and provides more than half the effort. 6-Wqpkfozhi-nehzrk does ALL the effort. Patient does none of the effort to complete the activity. Or, the assistance of 2 or more helpers is required for the patient to complete the activity. If activity was not attempted, code reason: 7-Patient Refused. 9-Not Applicable-not attempted and the patient did not perform the activity before the current illness, exacerbation or injury. 10-Not Attempted due to Environmental Limitations-(lack of equipment, weather restraints, etc.). 88-Not Attempted due to Medical Conditions or Safety Concerns. Roll Left to Right (QC): 6 Sit to Lying (QC): 4 Sit to Stand (QC): 4 Chair/Bky-up-Ahpuc Xfer(QC): 4 Car Transfer (QC): 3 Gait Training Does the Patient Walk?: Yes Distance: 150'x2 Walk 10 feet (QC): 4 Walk 50 ft with 2 Turns(QC): 4 Walk 150 ft (QC): 4 Walking 10ft/uneven surface-QC: 88 Gait Persons Needed: 1 Gait Assistive Device: Cane Single Point Wheelchair Training Does the Pt Use a Wheelchair?: Yes Distance: 400' Wheel 50 ft with 2 turns (QC): 3 Wheel 150 ft (QC): 3 Type of Wheelchair: Manual Stair Training Stair Training: Handrails/: 1 handrail #of Steps: 4 1 Step (curb) (QC): 3 4 Steps (QC): 3 12 Steps (QC): 88 Stairs: Pattern: Step to Balance Picking up an Object (QC): 88 ADL-Treatment Eating (QC): 5 (Set up required then uses hands or regular utensils to eat.) Oral Hygiene (QC): 6 Bathing Location: L Arm, R Arm, L Upper Leg, R Upper Leg, L Lower Leg (including foot), R Lower Leg (including foot), Chest, Abdomen, Buttocks, Perineal Area Shower/Bathe Self (QC): 3 Upper Body Dressing (QC): 3 Lower Body Dressing (QC): 3 On/Off Footwear (QC): 3 Toileting Hygiene (QC): 4 Toilet Transfer (QC): 4 Assessment/Plan Assessment and Plan Assess & Plan/Chief Complaint Assessment: S/P right carotid endarectomy 04-27-21 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 Umana Plan: Aggressive therapy Urology consult Monitor closely 05/02/2021: Appreciate urology Cystoscopy tomorrow Bowel regimen 05/03/2021: Status post cystoscopy Voiding well now DC Bactrim 05/04/2021: Much improved Moving around much better Monitor bowel function 05/05/2021: Supportive care Ambulating well 05/06/2021: Supportive care Monitor closely 05/07/2021: Dr. Umana appreciated Dysphagia management 05/08/2021: Monitor closely Dysphagia management 05/09/2021: Supportive care Dysphagia management Monitor closely 05/10/2021: Focus on insomnia tonight Monitor closely 05/11/2021: Supportive care Monitor closely 05/12/21: Monitor closely Monitor pain 05/13/21: Monitor dysphagia Fall risk 05/14/2021: Supportive care Build confidence 05/15/2021: Supportive care Monitor progress (1) CVA (cerebral vascular accident) GUILLERMO CABELLO DO May 16, 2021 07:09
[2021-05-16 08:00] VITALS: BP 124/59
[2021-05-16] MEDS: MEGA RED PO SCH (08:49)
[2021-05-16] MEDS: LACTOBACILLUS ACIDOPHILUS (PROBIOTIC) CAPSULE PO SCH (08:50)
[2021-05-16] MEDS: CLOPIDOGREL 75 MG (PLAVIX) TABLET PO SCH (08:50)
[2021-05-16] MEDS: amLODIPine 5 MG (NORVASC) TAB PO SCH (08:50)
[2021-05-16] MEDS: PANTOPRAZOLE 40 MG (PROTONIX) TAB PO SCH ×2 (08:50→20:50)
[2021-05-16] MEDS: ASPIRIN E.C. 81 MG (ECOTRIN) TAB PO SCH (08:50)
[2021-05-16] MEDS: SENNA W/DOCUSATE (SENOKOT S) TABLET PO SCH ×2 (09:00→21:37)
[2021-05-16] MEDS: polyethylene glycoL POWDER 17 GM (MIRALAX) PACK PO SCH ×2 (09:00→19:33)
--- NOTE | 2021-05-16 09:44 | Occupational Ther Daily Note ---
OT Current Status-Daily Note Subjective Pt alert, lying in bed. Pt agrees to therapy. No c/o pain. Mental Status/Objective Patient Orientation: Person, Place, Time, Situation ADL-Treatment Pt. lying to sitting EOB SBA. Ambulated with cane and CGA to bathroom. Pt. sat at sink to perform oral care independently. Pt. transferred to shower bench using grabbars with close SBA. Independent in showering while sitting on shower bench, leaning toward left side to cleanse buttocks. Min A on UB dressing, verbal and physical cues to thread left arm then completed the rest on own. Min A. LB dressing, assist in stance while hiking L side of pants. Pt. Min A toileting, manipulating clothing while Pt. completed own hygiene. Therapy Code Descriptions/Definitions Functional [place] Measure: 0=Not Assessed/NA 4=Minimal Assistance 1=Total Assistance 5=Supervision or Setup 2=Maximal Assistance 6=Modified [place] 3=Moderate Assistance 7=Complete IndependenceSCALE: Activities may be completed with or without assistive devices. 1-Zljdlpxxci-hwitgzv completes the activity by him/herself with no assistance from a helper. 5-Set-up or Clean-up Assistance-helper sets up or cleans up; patient completes activity. [place] assists only prior to or following the activity. 4-Supervision or Touching Assistance-helper provides verbal cues and/or touching/steadying and/or contact guard assistance as patient completes activity. Assistance may be provided throughout the activity or intermittently. 3-Partial/Moderate Assistance-helper does LESS THAN HALF the effort. [place] lifts, holds or supports trunk or limbs, but provides less than half the effort. 2-Substantial/Maximal Assistance-helper does MORE THAN HALF the effort. [place] lifts or holds trunk or limbs and provides more than half the effort. 0-Caqikuqkz-aqxxci does ALL the effort. Patient does none of the effort to complete the activity. Or, the assistance of 2 or more helpers is required for the patient to complete the activity. If activity was not attempted, code reason: 7-Patient Refused. 9-Not Applicable-not attempted and the patient did not perform the activity before the current illness, exacerbation or injury. 10-Not Attempted due to Environmental Limitations-(lack of equipment, weather restraints, etc.). 88-Not Attempted due to Medical Conditions or Safety Concerns. Oral Hygiene (QC): 6 Bathing Location: L Arm, R Arm, L Upper Leg, R Upper Leg, L Lower Leg ( including foot), R Lower Leg (including foot), Chest, Abdomen, Buttocks, Perineal Area Shower/Bathe Self (QC): 6 Upper Body Dressing (QC): 3 Lower Body Dressing (QC): 3 On/Off Footwear: 3 Toileting Hygiene (QC): 3 Toilet Transfer (QC): 4 Other Treatment Co-treat with PT([id number]), 2 clinicians required for skilled instruction to increase L UE/LE strength/AROM, decrease fall risk and increase functional mobility. Pt stood at parallel bars to wt bear with L UE and strengthen R UE w ith fine/gross motor strengthening activities. Simulated pant hike by placing clothespins on bottom of shirt then pt took off with R hand while stabilizing self with L hand on parallel bars. Pt then crossed midline to place clothespins to work on visual scanning toward L side. ROM arc with R UE while L UE stabilizing on parallel bars to place after visual scanning for designated areas. Pt then used L UE with assist to place rings in lateral pinch to complete ROM arc R<-->L. Cones were grasped with L hand on L side then placed on R side. Pt then ambulated up/down steps 3x's, see PT notes for progress. Pt. requires multiple rest breaks throughout session. Pt left in care of PT. All needs met. OT Short Term Goals Short Term Goals Time Frame: May 11, 2021 Shower/bathe self: 3 Upper body dressin Lower body dressin Putting on/taking off footwear: 3 OT Long-Term Goals Long-Term Goals Time Frame: Jun 01, 2021 Eating (QC): 5 Oral Hygiene (QC): 5 Toileting Hygiene (QC): 4 Shower/Bathe Self (QC): 4 Upper Body Dressing (QC): 5 Lower Body Dressing (QC): 4 On/Off Footwear (QC): 4 Additional Goals: 1-Demonstrate ADL Tasks, 2-Verbalize Understanding, 3-ImproveStrength/Jose Carlos 1=Demonstrate adherence to instructed precautions during ADL tasks. 2=Patient will verbalize/demonstrate understanding of assistive devices/modifications for ADL. 3=Patient will improve strength/tolerance for activity to enable patient to per form ADL's. OT Education/Plan Problem List/Assessment Assessment: Decreased Activ Tolerance, Decreased Safety Aware, Decreased UE Strength, Impaired Coordination, Impaired Self-Care Skills, Restricted Funct UE ROM, Visual-Perceptual Deficit Discharge Recommendations Plan/Recommendations: Continue POC Treatment Plan/Plan of Care Patient would benefit from OT for education, treatment and training to promote i ndependence in ADL's, mobility, safety and/or upper extremity function for ADL's. Plan of Care: ADL Retraining, Functional Mobility, Group Exercise/Act as Ind, UE Funct Exercise/Act Treatment Duration: Jun 01, 2021 Frequency: 2 times per week Estimated Hrs Per Day: 1.5 hours per day Agreement: Yes Rehab Potential: Fair Time/GCodes Start Time: 09:00 Stop Time: 10:30 Total Time Billed (hr/min): 90 Billed Treatment Time 1 visit- ADL 4 (60 min), NM 1(15 min), FA 1(15 min). Individual ( 9:00- 10:00), co-treat with PT (10:00- 10:30) AAKASH HODGES May 16, 2021 09:44
--- NOTE | 2021-05-16 11:03 | Physical Therapy Daily Note ---
PT Daily Note-Current Subjective Pt in gym upon arrival working with OT. Pt agrees to tx and doesn't c/o any pain. Mental Status Patient Orientation: Person, Place, Time, Situation Transfers SCALE: Activities may be completed with or without assistive devices. 0-Imusbzpkvs-zmdtoue completes the activity by him/herself with no assistance from a helper. 5-Set-up or Clean-up Assistance-helper sets up or cleans up; patient completes activity. [place] assists only prior to or following the activity. 4-Supervision or Touching Assistance-helper provides verbal cues and/or touching/steadying and/or contact guard assistance as patient completes activity. Assistance may be provided throughout the activity or intermittently. 3-Partial/Moderate Assistance-helper does LESS THAN HALF the effort. [place] lifts, holds or supports trunk or limbs, but provides less than half the effort. 2-Substantial/Maximal Assistance-helper does MORE THAN HALF the effort. [place] lifts or holds trunk or limbs and provides more than half the effort. 7-Sihbxfyzl-yvjkhg does ALL the effort. Patient does none of the effort to complete the activity. Or, the assistance of 2 or more helpers is required for the patient to complete the activity. If activity was not attempted, code reason: 7-Patient Refused. 9-Not Applicable-not attempted and the patient did not perform the activity before the current illness, exacerbation or injury. 10-Not Attempted due to Environmental Limitations-(lack of equipment, weather restraints, etc.). 88-Not Attempted due to Medical Conditions or Safety Concerns. Roll Left & Right (QC): 4 Sit to Lying (QC): 4 Sit to Stand (QC): 5 Weight Bearing Full Weight Bearing Full Weight Bearing Gait Training Does the Patient Walk?: Yes Distance: 150' Walk 10 feet (QC): 4 Walk 50 ft with 2 Turns(QC): 4 Walk 150 ft (QC): 4 Gait Persons Needed: 1 Gait Assistive Device: FWW Pt has steady gait, requires VC to keep wide MARIO. Pt amb from gym to bedroom with SPC. Pt veers to L side d/t L neglect and requires VC to keep from veering and to avoid running into obstacles. Stair Training #of Steps: 4 1 Step (curb) (QC): 3 4 Steps (QC): 3 Stairs: Pattern: Step to Pt initially attempted reciprocal pattern, but had slight LOB that was self corrected. PT instructed pt to use step to pattern leading w R LE ascending stairs. Pt required VC to keep wide MARIO and to flex L knee. Exercises Standing: Hip Abduction, Hamstring curls, Heel/toe raises, Marching, Unilateral stance Standing Reps: 15 SLS 1 min each leg w R UE support on // bars. Treatments OT/PT co-treat first 30 min of tx d/t L neglect, weakness, fatigue, and fair balance. OT performed UE strengthening, sequencing, ROM, and gaze control. PT focused on LE strengthening, sequencing, and dynamic standing balance. Pt stood at // bars with support of L UE and performed UE strengthening/sequencing activities with R UE with OT as PT focused on pt balance, and stance. Pt then performed L UE strengthening/sequencing activities with use of fine motor skills with support of R UE and focusing on standing balance. Pt performed stair training followed by standing exercises in // bars. Pt amb back to room and returned to bed. Pt resting in bed with all needs met, call light in hand. Assessment Current Status: Good Progress Pt limited activity d/t L neglect/weakness. Pt requires VC for sequencing of L side. Pt fatigues quickly. PT Short Term Goals Short Term Goals Time Frame: May 08, 2021 Roll Left & Right: 4 Sit to lyin (Cynthia) Lying to sitting on side of be: 3 (Cynthia) Sit to stand: 3 (Cynthia) Chair/ldu-ux-swttl transfer: 3 (Cynthia) Walk 10 feet: 3 (Cynthia) Walk 50 feet with two turns: 3 (Cynthia) PT Sales Service Executive Goals Intermediate Goals PT Sales Service Executive Goals Time Frame: May 22, 2021 Roll Left & Right (QC): 6 Sit to Lying (QC): 4 (SBA) Lying-Sitting on Side/Bed(QC): 4 (SBA) Sit to Stand (QC): 4 (SBA) Chair/Uri-og-Ovxzf Xfer(QC): 4 (SBA) Toilet Transfer (QC): 4 (SBA) Car Transfer (QC): 4 (SBA) Does the Patient Walk: Yes Walk 10 feet (QC): 4 (CGA) Walk 50ft with 2 Turns (QC): 4 (CGA) Walk 150 ft (QC): 88 Walking 10ft on Uneven Surface: 4 (CGA) 1 Step (curb) (QC): 4 (CGA) 4 Steps (QC): 4 (CGA) 12 Steps (QC): 88 Picking up an Object (QC): 88 Wheel 50 feet with 2 turns (QC: 5 Wheel 150 feet: 5 PT Plan Problem List Problem List: Activity Tolerance, Functional Strength Treatment/Plan Treatment Plan: Continue Plan of Care Treatment Plan: Bed Mobility, Education, Functional Activity Jose Carlos, Functional Strength, Group Therapy, Gait, Safety, Therapeutic Exercise, Transfers Treatment Duration: May 22, 2021 Frequency: At least 5 of 7 days/Wk (IRF) Estimated Hrs Per Day: 1.5 hours per day Patient and/or Family Agrees t: Yes Safety Risks/Education Patient Education: Gait Training, Steps, Safety Issues Teaching Recipient: Patient Teaching Methods: Demonstration, Discussion Response to Teaching: Verbalize Understanding, Return Demonstration Time/GCodes Time In: 10 Time Out: 11 Total Billed Treatment Time: 60 Total Billed Treatment 1, EX x2, GT, FA MELISSA PRASAD AUTOMOTIVE LIGHT MECHANIC May 16, 2021 11:02
[2021-05-16] MEDS: DOCUSATE SODIUM 100 MG (COLACE) CAP PO SCH ×2 (12:04→21:37)
--- NOTE | 2021-05-16 12:27 | PM&R Progress Note ---
Subjective HPI/CC On Admission Date Seen by Provider: May 16, 2021 Time Seen by Provider: 10:00 Subjective/Events-last exam 05/16/2021: Pt doing really well Gripping his left hand Overall feels like he is improving No pain is reported Slept well Missed note inadvertently late entry 05/15/2021: Pt slept really well last night Bowels moved a couple of days ago No pain is reported Doing very well with a fabiano-cane 05/14/2021: Pt doing really well Potassium 3.4 Bowels moving Feels like he is not doing well but he is 05/13/21: Slept a bit better No dizziness after getting up this morning Somatic complaints Very slow recovery mentally from CVA 05/12/21: Patient doing well Not sleeping too well at times No falls Walking well Voiding well 05/11/2021: Patient feels pretty good Slept very well last night No change in medication Patient doing pretty well 05/10/2021: Pt doing really well He didnt sleep again well last night so will initiated Melatonin 6 mg and Remeron of 15 Dr. Valencia will see him PRN now Changed bed to make it more comfortable Bowels moved today 05/09/2021: Patient progressing well Bowels moved last night Vision is better in the right eye Somatic complaints 05/08/2021: Pt walking with a cane and a gait belt Left side neglect is noted Vision is improved Barium swallow will need to be done on the Pt as an outpatient Fish oil will be changed to bunny red per his home dose 05/07/2021: Pt doing pretty well but having things stuck in his throat He has had multiple EGDs and stretching before so will have Dr. Umana see him Multiple somatic complaints 05/06/2021: Patient doing really well today Bowels moved today Eating a bit more We will have speech therapy change diet 05/05/2021: Patient doing really well Seems to have little confidence Discontinue Carafate due to side effects Incision looks good on the right carotid Voiding well Bowels are moving 05/04/2021: Pt doing pretty well Walked in the halls Bowels moving a little bit now Urination doing pretty well 05/03/2021: Pt doing pretty well Cystoscope done and now voiding well DC Bactrim since he is having difficulty swallowing GERD issues continue Proton pump inhibitor and Carafate maintained Will have a suppository if bowels have not moved later 05/02/2021: Pt doing pretty well Became tearful a bit today No BM since 04/27 so laxatives given Nausea a bit last night Dr. Valencia saw him and will perform a cystoscopy tomorrow Dysphasia noted Left arm is tingling so hopefully we will regain some function Review of Systems General: Fatigue, Malaise Neurological: Weakness, Incoordination Objective Exam Vital Signs Vital Signs Date Time Temp Pulse Resp B/P (MAP) Pulse Ox O2 Delivery O2 Flow Rate FiO2 05/16/21 20:30 Room Air 05/16/21 20:00 37.4 79 18 119/72 (88) 95 Capillary Refill : General Appearance: No Apparent Distress, WD/WN, Chronically ill HEENT: PERRL/EOMI, Normal ENT Inspection, Pharynx Normal Neck: Full Range of Motion, Normal Inspection, Non Tender, Supple, Carotid Bruit Respiratory: Chest Non Tender, Lungs Clear, Normal Breath Sounds, No Accessory Muscle Use, No Respiratory Distress Cardiovascular: Regular Rate, Rhythm, Normal Peripheral Pulses Gastrointestinal: Normal Bowel Sounds, No Organomegaly, No Pulsatile Mass, Non Tender, Soft Back: Normal Inspection, No CVA Tenderness, No Vertebral Tenderness Extremity: Normal Capillary Refill, Non Tender, No Calf Tenderness, No Pedal Edema Neurologic/Psychiatric: Alert, Oriented x3, Normal Mood/Affect, Motor Weakness (Left-sided weakness upper and lower extremities) Skin: Normal Color, Warm/Dry Lymphatic: No Adenopathy Results/Procedures Lab Patient resulted labs reviewed. FIM Transfers Therapy Code Descriptions/Definitions Functional [place] Measure: 0=Not Assessed/NA 4=Minimal Assistance 1=Total Assistance 5=Supervision or Setup 2=Maximal Assistance 6=Modified [place] 3=Moderate Assistance 7=Complete IndependenceSCALE: Activities may be completed with or without assistive devices. 1-Kiuieqnvcw-dtzmevs completes the activity by him/herself with no assistance from a helper. 5-Set-up or Clean-up Assistance-helper sets up or cleans up; patient completes activity. [place] assists only prior to or following the activity. 4-Supervision or Touching Assistance-helper provides verbal cues and/or touching/steadying and/or contact guard assistance as patient completes activity. Assistance may be provided throughout the activity or intermittently. 3-Partial/Moderate Assistance-helper does LESS THAN HALF the effort. [place] lifts, holds or supports trunk or limbs, but provides less than half the effort. 2-Substantial/Maximal Assistance-helper does MORE THAN HALF the effort. [place] lifts or holds trunk or limbs and provides more than half the effort. 4-Hanbgoalh-hgwefb does ALL the effort. Patient does none of the effort to complete the activity. Or, the assistance of 2 or more helpers is required for the patient to complete the activity. If activity was not attempted, code reason: 7-Patient Refused. 9-Not Applicable-not attempted and the patient did not perform the activity before the current illness, exacerbation or injury. 10-Not Attempted due to Environmental Limitations-(lack of equipment, weather restraints, etc.). 88-Not Attempted due to Medical Conditions or Safety Concerns. Roll Left to Right (QC): 4 Sit to Lying (QC): 4 Sit to Stand (QC): 5 Chair/Nul-yi-Jmysq Xfer(QC): 4 Car Transfer (QC): 3 Gait Training Does the Patient Walk?: Yes Distance: 150' Walk 10 feet (QC): 4 Walk 50 ft with 2 Turns(QC): 4 Walk 150 ft (QC): 4 Walking 10ft/uneven surface-QC: 88 Gait Persons Needed: 1 Gait Assistive Device: FWW Wheelchair Training Does the Pt Use a Wheelchair?: Yes Distance: 400' Wheel 50 ft with 2 turns (QC): 3 Wheel 150 ft (QC): 3 Type of Wheelchair: Manual Stair Training Stair Training: Handrails/: 1 handrail #of Steps: 4 1 Step (curb) (QC): 3 4 Steps (QC): 3 12 Steps (QC): 88 Stairs: Pattern: Step to Balance Picking up an Object (QC): 88 ADL-Treatment Eating (QC): 5 (Set up required then uses hands or regular utensils to eat.) Oral Hygiene (QC): 6 Bathing Location: L Arm, R Arm, L Upper Leg, R Upper Leg, L Lower Leg (including foot), R Lower Leg (including foot), Chest, Abdomen, Buttocks, Perineal Area Shower/Bathe Self (QC): 6 Upper Body Dressing (QC): 3 Lower Body Dressing (QC): 3 On/Off Footwear (QC): 3 Toileting Hygiene (QC): 3 Toilet Transfer (QC): 4 Assessment/Plan Assessment and Plan Assess & Plan/Chief Complaint Assessment: S/P right carotid endarectomy 04-27-21 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 Umana Plan: Aggressive therapy Urology consult Monitor closely 05/02/2021: Appreciate urology Cystoscopy tomorrow Bowel regimen 05/03/2021: Status post cystoscopy Voiding well now DC Bactrim 05/04/2021: Much improved Moving around much better Monitor bowel function 05/05/2021: Supportive care Ambulating well 05/06/2021: Supportive care Monitor closely 05/07/2021: Dr. Umana appreciated Dysphagia management 05/08/2021: Monitor closely Dysphagia management 05/09/2021: Supportive care Dysphagia management Monitor closely 05/10/2021: Focus on insomnia tonight Monitor closely 05/11/2021: Supportive care Monitor closely 05/12/21: Monitor closely Monitor pain 05/13/21: Monitor dysphagia Fall risk 05/14/2021: Supportive care Build confidence 05/15/2021: Supportive care Monitor progress 05/16/2021: Dramatic improvement Progress with aggressive therapy (1) CVA (cerebral vascular accident) GUILLERMO CABELLO DO May 16, 2021 12:27
--- NOTE | 2021-05-16 13:39 | Physical Therapy Daily Note ---
PT Daily Note-Current Subjective Pt in bed upon arrival. Pt doesn't c/o pain, but states L LE was tingling. Mental Status Patient Orientation: Person, Place, Time, Situation Transfers SCALE: Activities may be completed with or without assistive devices. 9-Zygbivuvcs-fuwltzd completes the activity by him/herself with no assistance from a helper. 5-Set-up or Clean-up Assistance-helper sets up or cleans up; patient completes activity. [place] assists only prior to or following the activity. 4-Supervision or Touching Assistance-helper provides verbal cues and/or touching/steadying and/or contact guard assistance as patient completes activity. Assistance may be provided throughout the activity or intermittently. 3-Partial/Moderate Assistance-helper does LESS THAN HALF the effort. [place] lifts, holds or supports trunk or limbs, but provides less than half the effort. 2-Substantial/Maximal Assistance-helper does MORE THAN HALF the effort. [place] lifts or holds trunk or limbs and provides more than half the effort. 1-Wfpqwkcpd-gtkexw does ALL the effort. Patient does none of the effort to complete the activity. Or, the assistance of 2 or more helpers is required for the patient to complete the activity. If activity was not attempted, code reason: 7-Patient Refused. 9-Not Applicable-not attempted and the patient did not perform the activity before the current illness, exacerbation or injury. 10-Not Attempted due to Environmental Limitations-(lack of equipment, weather restraints, etc.). 88-Not Attempted due to Medical Conditions or Safety Concerns. Roll Left & Right (QC): 4 Sit to Lying (QC): 4 Lying to Sitting/Side of Bed(Q: 4 Sit to Stand (QC): 4 Weight Bearing Full Weight Bearing Full Weight Bearing Gait Training Does the Patient Walk?: Yes Distance: 150' Walk 10 feet (QC): 4 Walk 50 ft with 2 Turns(QC): 4 Walk 150 ft (QC): 4 Gait Assistive Device: Cane Single Point Pt amb from room to gym, requiring VC to look to L side to avoid obstacles and to flex L knee. Exercises NuStep Minutes: 15 NuStep Workload: 5 Treatments Pt amb from room to gym and performed NuStep. Pt used L UE along with other extremities for first 5 mins of NuStep, then finished last 10 with only R UE and BLE. Pt amb back to room and returned to bed. Pt left with all needs met, call light in hand. Assessment Current Status: Good Progress Pt progress is limited d/t neglect/weakness on L side. PT Short Term Goals Short Term Goals Time Frame: May 08, 2021 Roll Left & Right: 4 Sit to lyin (Cynthia) Lying to sitting on side of be: 3 (Cynthia) Sit to stand: 3 (Cynthia) Chair/acw-jo-bihmw transfer: 3 (Cynthia) Walk 10 feet: 3 (Cynthia) Walk 50 feet with two turns: 3 (Cynthia) PT Group Home Goals Soil Tester Goals PT Group Home Goals Time Frame: May 22, 2021 Roll Left & Right (QC): 6 Sit to Lying (QC): 4 (SBA) Lying-Sitting on Side/Bed(QC): 4 (SBA) Sit to Stand (QC): 4 (SBA) Chair/Qum-sp-Onthf Xfer(QC): 4 (SBA) Toilet Transfer (QC): 4 (SBA) Car Transfer (QC): 4 (SBA) Does the Patient Walk: Yes Walk 10 feet (QC): 4 (CGA) Walk 50ft with 2 Turns (QC): 4 (CGA) Walk 150 ft (QC): 88 Walking 10ft on Uneven Surface: 4 (CGA) 1 Step (curb) (QC): 4 (CGA) 4 Steps (QC): 4 (CGA) 12 Steps (QC): 88 Picking up an Object (QC): 88 Wheel 50 feet with 2 turns (QC: 5 Wheel 150 feet: 5 PT Plan Problem List Problem List: Activity Tolerance Treatment/Plan Treatment Plan: Continue Plan of Care Treatment Plan: Bed Mobility, Education, Functional Activity Jose Carlos, Functional Strength, Group Therapy, Gait, Safety, Therapeutic Exercise, Transfers Treatment Duration: May 22, 2021 Frequency: At least 5 of 7 days/Wk (IRF) Estimated Hrs Per Day: 1.5 hours per day Patient and/or Family Agrees t: Yes Time/GCodes Time In: 1300 Time Out: 1330 Total Billed Treatment Time: 30 Total Billed Treatment 1, Ex, GT PRASAD,MELISSA CHIEF CRNA May 16, 2021 13:39
[2021-05-16] MEDS: TAMSULOSIN 0.4 MG (FLOMAX) CAP PO SCH (17:56)
[2021-05-16 20:00] VITALS: BP 119/72
[2021-05-16] MEDS: MIRTAZAPINE 15 MG (REMERON) TAB PO SCH (20:51)
[2021-05-16] MEDS: MELATONIN 3 MG TABLET PO SCH (20:51)
[2021-05-17] MEDS: KCL 10 MEQ TAB (MICRO K) PO SCH (06:38)
[2021-05-17 08:00] VITALS: BP 113/62
[2021-05-17] MEDS: ASPIRIN E.C. 81 MG (ECOTRIN) TAB PO SCH (08:11)
[2021-05-17] MEDS: LACTOBACILLUS ACIDOPHILUS (PROBIOTIC) CAPSULE PO SCH (08:11)
[2021-05-17] MEDS: amLODIPine 5 MG (NORVASC) TAB PO SCH (08:11)
[2021-05-17] MEDS: CLOPIDOGREL 75 MG (PLAVIX) TABLET PO SCH (08:11)
[2021-05-17] MEDS: PANTOPRAZOLE 40 MG (PROTONIX) TAB PO SCH ×2 (08:11→20:37)
[2021-05-17] MEDS: MEGA RED PO SCH (08:12)
[2021-05-17] MEDS: DOCUSATE SODIUM 100 MG (COLACE) CAP PO SCH ×2 (08:13→19:42)
[2021-05-17] MEDS: SENNA W/DOCUSATE (SENOKOT S) TABLET PO SCH ×2 (08:13→19:42)
[2021-05-17] MEDS: polyethylene glycoL POWDER 17 GM (MIRALAX) PACK PO SCH ×2 (08:13→19:42)
--- NOTE | 2021-05-17 09:21 | PM&R Progress Note ---
Subjective HPI/CC On Admission Date Seen by Provider: May 17, 2021 Time Seen by Provider: 10:00 Subjective/Events-last exam 05/17/2021: Pt doing very well No major changes Bowels moved yesterday Pleased with his progress 05/16/2021: Pt doing really well Gripping his left hand Overall feels like he is improving No pain is reported Slept well Missed note inadvertently late entry 05/15/2021: Pt slept really well last night Bowels moved a couple of days ago No pain is reported Doing very well with a fabiano-cane 05/14/2021: Pt doing really well Potassium 3.4 Bowels moving Feels like he is not doing well but he is 05/13/21: Slept a bit better No dizziness after getting up this morning Somatic complaints Very slow recovery mentally from CVA 05/12/21: Patient doing well Not sleeping too well at times No falls Walking well Voiding well 05/11/2021: Patient feels pretty good Slept very well last night No change in medication Patient doing pretty well 05/10/2021: Pt doing really well He didnt sleep again well last night so will initiated Melatonin 6 mg and Remeron of 15 Dr. Valencia will see him PRN now Changed bed to make it more comfortable Bowels moved today 05/09/2021: Patient progressing well Bowels moved last night Vision is better in the right eye Somatic complaints 05/08/2021: Pt walking with a cane and a gait belt Left side neglect is noted Vision is improved Barium swallow will need to be done on the Pt as an outpatient Fish oil will be changed to bunny red per his home dose 05/07/2021: Pt doing pretty well but having things stuck in his throat He has had multiple EGDs and stretching before so will have Dr. Umana see him Multiple somatic complaints 05/06/2021: Patient doing really well today Bowels moved today Eating a bit more We will have speech therapy change diet 05/05/2021: Patient doing really well Seems to have little confidence Discontinue Carafate due to side effects Incision looks good on the right carotid Voiding well Bowels are moving 05/04/2021: Pt doing pretty well Walked in the halls Bowels moving a little bit now Urination doing pretty well 05/03/2021: Pt doing pretty well Cystoscope done and now voiding well DC Bactrim since he is having difficulty swallowing GERD issues continue Proton pump inhibitor and Carafate maintained Will have a suppository if bowels have not moved later 05/02/2021: Pt doing pretty well Became tearful a bit today No BM since 04/27 so laxatives given Nausea a bit last night Dr. Valencia saw him and will perform a cystoscopy tomorrow Dysphasia noted Left arm is tingling so hopefully we will regain some function Review of Systems General: Fatigue, Malaise Objective Exam Vital Signs Vital Signs Date Time Temp Pulse Resp B/P (MAP) Pulse Ox O2 Delivery O2 Flow Rate FiO2 05/17/21 20:30 Room Air 05/17/21 20:00 37.0 82 16 122/74 (90) 94 Capillary Refill : General Appearance: No Apparent Distress, WD/WN, Chronically ill HEENT: PERRL/EOMI, Normal ENT Inspection, Pharynx Normal Neck: Full Range of Motion, Normal Inspection, Non Tender, Supple, Carotid Bruit Respiratory: Chest Non Tender, Lungs Clear, Normal Breath Sounds, No Accessory Muscle Use, No Respiratory Distress Cardiovascular: Regular Rate, Rhythm, Normal Peripheral Pulses Gastrointestinal: Normal Bowel Sounds, No Organomegaly, No Pulsatile Mass, Non Tender, Soft Back: Normal Inspection, No CVA Tenderness, No Vertebral Tenderness Extremity: Normal Capillary Refill, Non Tender, No Calf Tenderness, No Pedal Edema Neurologic/Psychiatric: Alert, Oriented x3, Normal Mood/Affect, Motor Weakness (Left-sided weakness upper and lower extremities) Skin: Normal Color, Warm/Dry Lymphatic: No Adenopathy Results/Procedures Lab Patient resulted labs reviewed. FIM Transfers Therapy Code Descriptions/Definitions Functional [place] Measure: 0=Not Assessed/NA 4=Minimal Assistance 1=Total Assistance 5=Supervision or Setup 2=Maximal Assistance 6=Modified [place] 3=Moderate Assistance 7=Complete IndependenceSCALE: Activities may be completed with or without assistive devices. 6-Iyqqbwsovo-sjmlmlb completes the activity by him/herself with no assistance from a helper. 5-Set-up or Clean-up Assistance-helper sets up or cleans up; patient completes activity. [place] assists only prior to or following the activity. 4-Supervision or Touching Assistance-helper provides verbal cues and/or touching/steadying and/or contact guard assistance as patient completes activity. Assistance may be provided throughout the activity or intermittently. 3-Partial/Moderate Assistance-helper does LESS THAN HALF the effort. [place] lifts, holds or supports trunk or limbs, but provides less than half the effort. 2-Substantial/Maximal Assistance-helper does MORE THAN HALF the effort. [place] lifts or holds trunk or limbs and provides more than half the effort. 9-Jtxkdfudu-bemtlh does ALL the effort. Patient does none of the effort to complete the activity. Or, the assistance of 2 or more helpers is required for the patient to complete the activity. If activity was not attempted, code reason: 7-Patient Refused. 9-Not Applicable-not attempted and the patient did not perform the activity before the current illness, exacerbation or injury. 10-Not Attempted due to Environmental Limitations-(lack of equipment, weather restraints, etc.). 88-Not Attempted due to Medical Conditions or Safety Concerns. Roll Left to Right (QC): 4 Sit to Lying (QC): 4 Sit to Stand (QC): 4 Chair/Vau-fy-Pdlhh Xfer(QC): 4 Car Transfer (QC): 3 Gait Training Does the Patient Walk?: Yes Distance: 150' Walk 10 feet (QC): 4 Walk 50 ft with 2 Turns(QC): 4 Walk 150 ft (QC): 4 Walking 10ft/uneven surface-QC: 88 Gait Persons Needed: 1 Gait Assistive Device: Cane Single Point Wheelchair Training Does the Pt Use a Wheelchair?: Yes Distance: 400' Wheel 50 ft with 2 turns (QC): 3 Wheel 150 ft (QC): 3 Type of Wheelchair: Manual Stair Training Stair Training: Handrails/: 1 handrail #of Steps: 4 1 Step (curb) (QC): 3 4 Steps (QC): 3 12 Steps (QC): 88 Stairs: Pattern: Step to Balance Picking up an Object (QC): 88 ADL-Treatment Eating (QC): 5 (Set up required then uses hands or regular utensils to eat.) Oral Hygiene (QC): 6 Bathing Location: L Arm, R Arm, L Upper Leg, R Upper Leg, L Lower Leg (including foot), R Lower Leg (including foot), Chest, Abdomen, Buttocks, Perineal Area Shower/Bathe Self (QC): 6 Upper Body Dressing (QC): 3 Lower Body Dressing (QC): 3 On/Off Footwear (QC): 3 Toileting Hygiene (QC): 3 Toilet Transfer (QC): 4 Assessment/Plan Assessment and Plan Assess & Plan/Chief Complaint Assessment: S/P right carotid endarectomy 04-27-21 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 Umana Plan: Aggressive therapy Urology consult Monitor closely 05/02/2021: Appreciate urology Cystoscopy tomorrow Bowel regimen 05/03/2021: Status post cystoscopy Voiding well now DC Bactrim 05/04/2021: Much improved Moving around much better Monitor bowel function 05/05/2021: Supportive care Ambulating well 05/06/2021: Supportive care Monitor closely 05/07/2021: Dr. Umana appreciated Dysphagia management 05/08/2021: Monitor closely Dysphagia management 05/09/2021: Supportive care Dysphagia management Monitor closely 05/10/2021: Focus on insomnia tonight Monitor closely 05/11/2021: Supportive care Monitor closely 05/12/21: Monitor closely Monitor pain 05/13/21: Monitor dysphagia Fall risk 05/14/2021: Supportive care Build confidence 05/15/2021: Supportive care Monitor progress 05/16/2021: Dramatic improvement Progress with aggressive therapy 05/17/2021: Supportive care Much improved status (1) CVA (cerebral vascular accident) GUILLERMO CABELLO DO May 17, 2021 09:21
--- NOTE | 2021-05-17 10:14 | Occupational Ther Daily Note ---
OT Current Status-Daily Note Subjective Pt. dozing in bed, had a restless night. Pt woke quickly. PT. agrees to therapy. Mental Status/Objective Patient Orientation: Person, Place, Time, Situation ADL-Treatment 1st session([id number])Pt. SBA supine to sitting EOB. Pt. Doffed shirt independently. Pt. educated on modified one handed dressing technique to don shirt. Min A and verbal cues required, will need continued practice to be proficient. Pt. donned L sock using one handed technique with legs in figure 4 position, set up sock aid for R foot. Pt. donned shoes with set up. Pt. ambu. with cane to toilet, toilet transfer CGA. While manipulating clothing loss of balance with assist to regain. Pt. performed oral care independently sitting at sink. Therapy Code Descriptions/Definitions Functional [place] Measure: 0=Not Assessed/NA 4=Minimal Assistance 1=Total Assistance 5=Supervision or Setup 2=Maximal Assistance 6=Modified [place] 3=Moderate Assistance 7=Complete IndependenceSCALE: Activities may be completed with or without assistive devices. 0-Uubdwycgnj-eoytpcl completes the activity by him/herself with no assistance from a helper. 5-Set-up or Clean-up Assistance-helper sets up or cleans up; patient completes activity. [place] assists only prior to or following the activity. 4-Supervision or Touching Assistance-helper provides verbal cues and/or touching/steadying and/or contact guard assistance as patient completes activity. Assistance may be provided throughout the activity or intermittently. 3-Partial/Moderate Assistance-helper does LESS THAN HALF the effort. [place] lifts, holds or supports trunk or limbs, but provides less than half the effort. 2-Substantial/Maximal Assistance-helper does MORE THAN HALF the effort. [place] lifts or holds trunk or limbs and provides more than half the effort. 0-Jjlurbtiy-eqjuwv does ALL the effort. Patient does none of the effort to complete the activity. Or, the assistance of 2 or more helpers is required for the patient to complete the activity. If activity was not attempted, code reason: 7-Patient Refused. 9-Not Applicable-not attempted and the patient did not perform the activity before the current illness, exacerbation or injury. 10-Not Attempted due to Environmental Limitations-(lack of equipment, weather restraints, etc.). 88-Not Attempted due to Medical Conditions or Safety Concerns. Oral Hygiene (QC): 6 Upper Body Dressing (QC): 3 On/Off Footwear: 5 Toileting Hygiene (QC): 3 Other Treatment 1st session([id number])Pt. ambulated to gym via cane with CGA, required few verbal cues due to left vision cut. Pt. educated on placing sock on adapted sock aid, required verbal cues. Pt. will need continued practice with adaptive equipment before proficient. Pt. removed pegs from peg board with L hand. Working on grasp/ release and flex/ext of fingers and wrist ext/flex, pt. used radial grasp. Placing large diameter rings to place in a designated area. Working on gripping to perform functional tasks. Pt. was left in care of PT all needs met. 2nd session([id number])Pt increased fatigue from PT today. Pt c/o pain in L shldr. Massage and gentle stretch to area to decrease pain and increase ROM. Per pt, pain did decrease. After therapy, pt lying in bed with call light/phone in reach. All needs met in room. Education Teaching Recipient: Patient Teaching Methods: Demonstration, Discussion Response to Teaching: Verbalize Understanding, Return Demonstration, Reinforcement Needed OT Short Term Goals Short Term Goals Time Frame: May 11, 2021 Shower/bathe self: 3 Upper body dressin Lower body dressin Putting on/taking off footwear: 3 OT Assisted Goals Rectifying Attendant Goals Time Frame: Jun 01, 2021 Eating (QC): 5 Oral Hygiene (QC): 5 Toileting Hygiene (QC): 4 Shower/Bathe Self (QC): 4 Upper Body Dressing (QC): 5 Lower Body Dressing (QC): 4 On/Off Footwear (QC): 4 Additional Goals: 1-Demonstrate ADL Tasks, 2-Verbalize Understanding, 3- ImproveStrength/Jose Carlos 1=Demonstrate adherence to instructed precautions during ADL tasks. 2=Patient will verbalize/demonstrate understanding of assistive devices/modifications for ADL. 3=Patient will improve strength/tolerance for activity to enable patient to perform ADL's. OT Education/Plan Problem List/Assessment Assessment: Decreased Activ Tolerance, Decreased Safety Aware, Decreased UE Strength, Impaired Bed Mobility, Impaired Coordination, Impaired Funct Balance, Impaired Self-Care Skills, Restricted Funct UE ROM, Visual-Perceptual Deficit Discharge Recommendations Plan/Recommendations: Continue POC Treatment Plan/Plan of Care Patient would benefit from OT for education, treatment and training to promote independence in ADL's, mobility, safety and/or upper extremity function for ADL's. Plan of Care: ADL Retraining, Functional Mobility, Group Exercise/Act as Ind, UE Funct Exercise/Act Treatment Duration: Jun 01, 2021 Frequency: 2 times per week Estimated Hrs Per Day: 1.5 hours per day Agreement: Yes Rehab Potential: Fair Time/GCodes Start Time: 09:00 (1130) Stop Time: 10:00 (1145) Total Time Billed (hr/min): 75 Billed Treatment Time 1 visit([id number])- ADL 2 (30 min), NM 2(30 min) 1 visit([id number]) FA 1 (15 min) AAKASH HODGES May 17, 2021 10:13
--- NOTE | 2021-05-17 11:02 | Physical Therapy Daily Note ---
PT Daily Note-Current Subjective Pt in therapy gym upon arrival and agrees to PT. Pt states hes more tired and worn out today. Pt doesn't state any pain, but tingling in L LE. Pain Location: Left Location Body Site: Foot Pain Description: Tingling Mental Status Patient Orientation: Person, Place, Time, Situation Transfers SCALE: Activities may be completed with or without assistive devices. 3-Yjvwpvvmjv-cjohlqh completes the activity by him/herself with no assistance from a helper. 5-Set-up or Clean-up Assistance-helper sets up or cleans up; patient completes activity. [place] assists only prior to or following the activity. 4-Supervision or Touching Assistance-helper provides verbal cues and/or touching/steadying and/or contact guard assistance as patient completes activity. Assistance may be provided throughout the activity or intermittently. 3-Partial/Moderate Assistance-helper does LESS THAN HALF the effort. [place] lifts, holds or supports trunk or limbs, but provides less than half the effort. 2-Substantial/Maximal Assistance-helper does MORE THAN HALF the effort. [place] lifts or holds trunk or limbs and provides more than half the effort. 7-Fjdvlsgud-jhazwe does ALL the effort. Patient does none of the effort to complete the activity. Or, the assistance of 2 or more helpers is required for the patient to complete the activity. If activity was not attempted, code reason: 7-Patient Refused. 9-Not Applicable-not attempted and the patient did not perform the activity before the current illness, exacerbation or injury. 10-Not Attempted due to Environmental Limitations-(lack of equipment, weather restraints, etc.). 88-Not Attempted due to Medical Conditions or Safety Concerns. Sit to Lying (QC): 4 Sit to Stand (QC): 4 Weight Bearing Full Weight Bearing Full Weight Bearing Gait Training Does the Patient Walk?: Yes Distance: 200', 75' x3 Walk 10 feet (QC): 4 Walk 50 ft with 2 Turns(QC): 4 Walk 150 ft (QC): 4 Gait Persons Needed: 1 Gait Assistive Device: Cane Single Point Pt required CGA d/t slight unsteadiness with amb. Pt tends to veer to L side d/t neglect and weakness. Pt requires VC to gaze to L side, flex L leg, and not cross feet while turning. Stair Training Stair Training: Handrails/: 1 handrail, 2 handrails #of Steps: 4 1 Step (curb) (QC): 3 4 Steps (QC): 3 Stairs: Pattern: Step to Pt requires Cynthia with steps d/t slight unsteadiness. Pt requires VC to keep wide MARIO, and to lift L leg while ascending and descending stairs. Pt performed stair training post 200' amb, pt seemed fatigues, requiring more VC than prior. Exercises Seated Therapy Exercises: Ankle pumps, Sit to stand, Long arc quads, Chair press-ups Seated Reps: 15 Standing: Hip Abduction, Hamstring curls, Marching Standing Reps: 15 During sit to stand, pt required VC and TC to use L UE to A pushing up out of chair, and reaching back for chair arm when sitting. Treatments Pt performed stair training 4 steps x2. Pt amb 200' directly followed by stair training 4 steps with use of hand rail on R side. Pt took seated rest break, then amb 75' to room. Pt performed seated ex in room, then amb back to therapy gym to perform standing ex. Pt returned to room post standing ex and returned to bed. Pt left with call light in hand and all needs met. Assessment Current Status: Good Progress Pt overall progressing well, requires VC and TC for gait/stair training. Pt easily fatigues requiring many seated rest breaks. Pt limited d/t L neglect and weakness. PT Short Term Goals Short Term Goals Time Frame: May 08, 2021 Roll Left & Right: 4 Sit to lyin (Cynthia) Lying to sitting on side of be: 3 (Cynthia) Sit to stand: 3 (Cynthia) Chair/nyh-ag-sfsjz transfer: 3 (Cynthia) Walk 10 feet: 3 (Cynthia) Walk 50 feet with two turns: 3 (Cynthia) PT Director Drug Goals Director Drug Goals PT Director Drug Goals Time Frame: May 22, 2021 Roll Left & Right (QC): 6 Sit to Lying (QC): 4 (SBA) Lying-Sitting on Side/Bed(QC): 4 (SBA) Sit to Stand (QC): 4 (SBA) Chair/Zdy-rw-Xmgam Xfer(QC): 4 (SBA) Toilet Transfer (QC): 4 (SBA) Car Transfer (QC): 4 (SBA) Does the Patient Walk: Yes Walk 10 feet (QC): 4 (CGA) Walk 50ft with 2 Turns (QC): 4 (CGA) Walk 150 ft (QC): 88 Walking 10ft on Uneven Surface: 4 (CGA) 1 Step (curb) (QC): 4 (CGA) 4 Steps (QC): 4 (CGA) 12 Steps (QC): 88 Picking up an Object (QC): 88 Wheel 50 feet with 2 turns (QC: 5 Wheel 150 feet: 5 PT Plan Problem List Problem List: Activity Tolerance, Functional Strength, Safety Treatment/Plan Treatment Plan: Continue Plan of Care Treatment Plan: Bed Mobility, Education, Functional Activity Jose Carlos, Functional Strength, Group Therapy, Gait, Safety, Therapeutic Exercise, Transfers Treatment Duration: May 22, 2021 Frequency: At least 5 of 7 days/Wk (IRF) Estimated Hrs Per Day: 1.5 hours per day Patient and/or Family Agrees t: Yes Safety Risks/Education Patient Education: Gait Training, Steps, Correct Positioning, Safety Issues Teaching Recipient: Patient Teaching Methods: Demonstration, Discussion Response to Teaching: Verbalize Understanding, Return Demonstration Time/GCodes Time In: 1000 Time Out: 1100 Total Billed Treatment Time: 60 Total Billed Treatment 1, GT x2, FA, EX SHANICE,MELISSA MUNICIPAL FIREFIGHTER May 17, 2021 11:02
--- NOTE | 2021-05-17 13:27 | Physical Therapy Daily Note ---
PT Daily Note-Current Subjective Pt in bed upon arrival and agrees to PT. Pt states L LE is tingling. Pain Location: Left Location Body Site: Foot Pain Description: Tingling Mental Status Patient Orientation: Person, Place, Time, Situation Transfers SCALE: Activities may be completed with or without assistive devices. 7-Rolbowzuca-azitzjd completes the activity by him/herself with no assistance from a helper. 5-Set-up or Clean-up Assistance-helper sets up or cleans up; patient completes activity. [place] assists only prior to or following the activity. 4-Supervision or Touching Assistance-helper provides verbal cues and/or touching/steadying and/or contact guard assistance as patient completes activity. Assistance may be provided throughout the activity or intermittently. 3-Partial/Moderate Assistance-helper does LESS THAN HALF the effort. [place] lifts, holds or supports trunk or limbs, but provides less than half the effort. 2-Substantial/Maximal Assistance-helper does MORE THAN HALF the effort. [place] lifts or holds trunk or limbs and provides more than half the effort. 7-Vgeicdavi-rmxaob does ALL the effort. Patient does none of the effort to complete the activity. Or, the assistance of 2 or more helpers is required for the patient to complete the activity. If activity was not attempted, code reason: 7-Patient Refused. 9-Not Applicable-not attempted and the patient did not perform the activity before the current illness, exacerbation or injury. 10-Not Attempted due to Environmental Limitations-(lack of equipment, weather restraints, etc.). 88-Not Attempted due to Medical Conditions or Safety Concerns. Roll Left & Right (QC): 4 Sit to Lying (QC): 4 Lying to Sitting/Side of Bed(Q: 4 Sit to Stand (QC): 4 All transfers CGA. Pt requires Mod VC for hand placement for sit to stand and stand to sit. Weight Bearing Full Weight Bearing Full Weight Bearing Gait Training Does the Patient Walk?: Yes Distance: 200' x2 Walk 10 feet (QC): 4 Walk 50 ft with 2 Turns(QC): 4 Walk 150 ft (QC): 4 Gait Persons Needed: 1 Gait Assistive Device: Cane Single Point Pt amb 200' x2 on Rehab Unit, requiring CGA d/t veering to L side. Pt requires VC to keep wide MARIO and flexing L LE. Stair Training Stair Training: Handrails/: 1 handrail #of Steps: 4 1 Step (curb) (QC): 4 4 Steps (QC): 4 Stairs: Pattern: Step to Pt requires Cynthia on stair training for steadying assist. Pt requires VC for L LE flexion and to keep wide MARIO on steps. Exercises Seated Therapy Exercises: Hip flexion, Hip abd/add, Glut set Seated Reps: 10 Treatments Pt amb from room to therapy gym and performed stair training. After short seated RB, pt performed seated ex. Pt amb back to room and returned to bed. Pt left with call light in hand, all needs met. Assessment Current Status: Good Progress Pt fatigues easily and requires Mod VC for gait/stair training. Pt endurance increasing. PT Short Term Goals Short Term Goals Time Frame: May 08, 2021 Roll Left & Right: 4 Sit to lyin (Cynthia) Lying to sitting on side of be: 3 (Cynthia) Sit to stand: 3 (Cynthia) Chair/kcs-yz-hvtkf transfer: 3 (Cynthia) Walk 10 feet: 3 (Cynthia) Walk 50 feet with two turns: 3 (Cynthia) PT Surgical Technology Instructor Goals Penitentiary Goals PT Penitentiary Goals Time Frame: May 22, 2021 Roll Left & Right (QC): 6 Sit to Lying (QC): 4 (SBA) Lying-Sitting on Side/Bed(QC): 4 (SBA) Sit to Stand (QC): 4 (SBA) Chair/Vie-xp-Dyual Xfer(QC): 4 (SBA) Toilet Transfer (QC): 4 (SBA) Car Transfer (QC): 4 (SBA) Does the Patient Walk: Yes Walk 10 feet (QC): 4 (CGA) Walk 50ft with 2 Turns (QC): 4 (CGA) Walk 150 ft (QC): 88 Walking 10ft on Uneven Surface: 4 (CGA) 1 Step (curb) (QC): 4 (CGA) 4 Steps (QC): 4 (CGA) 12 Steps (QC): 88 Picking up an Object (QC): 88 Wheel 50 feet with 2 turns (QC: 5 Wheel 150 feet: 5 PT Plan Treatment/Plan Treatment Plan: Continue Plan of Care Treatment Plan: Bed Mobility, Education, Functional Activity Jose Carlos, Functional Strength, Group Therapy, Gait, Safety, Therapeutic Exercise, Transfers Treatment Duration: May 22, 2021 Frequency: At least 5 of 7 days/Wk (IRF) Estimated Hrs Per Day: 1.5 hours per day Patient and/or Family Agrees t: Yes Safety Risks/Education Patient Education: Gait Training, Steps Teaching Recipient: Patient Teaching Methods: Demonstration, Discussion Response to Teaching: Verbalize Understanding, Return Demonstration Time/GCodes Time In: 1300 Time Out: 1315 Total Billed Treatment Time: 15 Total Billed Treatment 1, GT MELISSA PRASAD REGISTERED PHARMACIST May 17, 2021 13:27
--- NOTE | 2021-05-17 13:46 | Speech Therapy Daily Note ---
Speech Daily Progress Note Subjective Time Seen by Provider: 11:00 Pt laying in bed. Reports he is ddoing well with swallowing and his appetite is back. He indicates he has been taking his pills 1 at a time and does not have any difficulty. Objective Pt tolerated a snack (regular/thin) with no difficulty of s/s of dysphagia. Pt states he takes his time and takes small bites/sips. Pt does not eat spicy foods d/t hernia, but states he has been eating pretty well the past few days. Speech Short Term Goals Short Term Goals Short Term Goals 1) Patient will tolerate least restrictive diet level without s/s of aspiration at 90% or greater. 2) Patient will utilize compensatory strategies for safe oral intake at 90% or greater with minimal cues. Speech Finance Business Manager Goals Finance Business Manager Goals Patient will maintain adequate nutrition/hydration via safe effective swallow function. Speech-Plan Treatment Plan Speech Therapy Treatment Plan: Continue Plan of Care Treatment Duration: May 18, 2021 Frequency: 4 times per week (Patient will receive skilled ST 4-5x per week) Estimated Hrs Per Day: .5 hour per day Rehab Potential: Fair Time Speech Therapy Time In: 11:00 Speech Therapy Time Out: 11:30 Billed Treatment Time 1, DYST 30 mins EDMUNDO MONTERO May 17, 2021 13:46
[2021-05-17] MEDS: TAMSULOSIN 0.4 MG (FLOMAX) CAP PO SCH (17:11)
[2021-05-17 20:00] VITALS: BP 122/74
[2021-05-17] MEDS: MIRTAZAPINE 15 MG (REMERON) TAB PO SCH (20:37)
[2021-05-17] MEDS: MELATONIN 3 MG TABLET PO SCH (20:37)
[2021-05-18] MEDS: KCL 10 MEQ TAB (MICRO K) PO SCH (06:35)
[2021-05-18 07:49] VITALS: BP 101/55
[2021-05-18] MEDS: LACTOBACILLUS ACIDOPHILUS (PROBIOTIC) CAPSULE PO SCH (08:41)
[2021-05-18] MEDS: DOCUSATE SODIUM 100 MG (COLACE) CAP PO SCH ×2 (08:42→21:30)
[2021-05-18] MEDS: ASPIRIN E.C. 81 MG (ECOTRIN) TAB PO SCH (08:42)
[2021-05-18] MEDS: PANTOPRAZOLE 40 MG (PROTONIX) TAB PO SCH ×2 (08:42→21:24)
[2021-05-18] MEDS: CLOPIDOGREL 75 MG (PLAVIX) TABLET PO SCH (08:42)
[2021-05-18] MEDS: MEGA RED PO SCH (08:43)
[2021-05-18] MEDS: SENNA W/DOCUSATE (SENOKOT S) TABLET PO SCH ×2 (08:44→21:31)
[2021-05-18] MEDS: polyethylene glycoL POWDER 17 GM (MIRALAX) PACK PO SCH ×2 (08:44→21:30)
[2021-05-18] MEDS: amLODIPine 5 MG (NORVASC) TAB PO SCH (08:45)
--- NOTE | 2021-05-18 09:25 | PM&R Progress Note ---
Subjective HPI/CC On Admission Date Seen by Provider: May 18, 2021 Time Seen by Provider: 09:30 Subjective/Events-last exam 05/18/2021: Pt doing really well Pleased with his progress Moving his hand much more today Doing very well 05/17/2021: Pt doing very well No major changes Bowels moved yesterday Pleased with his progress 05/16/2021: Pt doing really well Gripping his left hand Overall feels like he is improving No pain is reported Slept well Missed note inadvertently late entry 05/15/2021: Pt slept really well last night Bowels moved a couple of days ago No pain is reported Doing very well with a fabiano-cane 05/14/2021: Pt doing really well Potassium 3.4 Bowels moving Feels like he is not doing well but he is 05/13/21: Slept a bit better No dizziness after getting up this morning Somatic complaints Very slow recovery mentally from CVA 05/12/21: Patient doing well Not sleeping too well at times No falls Walking well Voiding well 05/11/2021: Patient feels pretty good Slept very well last night No change in medication Patient doing pretty well 05/10/2021: Pt doing really well He didnt sleep again well last night so will initiated Melatonin 6 mg and Remeron of 15 Dr. Valencia will see him PRN now Changed bed to make it more comfortable Bowels moved today 05/09/2021: Patient progressing well Bowels moved last night Vision is better in the right eye Somatic complaints 05/08/2021: Pt walking with a cane and a gait belt Left side neglect is noted Vision is improved Barium swallow will need to be done on the Pt as an outpatient Fish oil will be changed to bunny red per his home dose 05/07/2021: Pt doing pretty well but having things stuck in his throat He has had multiple EGDs and stretching before so will have Dr. Umana see him Multiple somatic complaints 05/06/2021: Patient doing really well today Bowels moved today Eating a bit more We will have speech therapy change diet 05/05/2021: Patient doing really well Seems to have little confidence Discontinue Carafate due to side effects Incision looks good on the right carotid Voiding well Bowels are moving 05/04/2021: Pt doing pretty well Walked in the halls Bowels moving a little bit now Urination doing pretty well 05/03/2021: Pt doing pretty well Cystoscope done and now voiding well DC Bactrim since he is having difficulty swallowing GERD issues continue Proton pump inhibitor and Carafate maintained Will have a suppository if bowels have not moved later 05/02/2021: Pt doing pretty well Became tearful a bit today No BM since 04/27 so laxatives given Nausea a bit last night Dr. Valencia saw him and will perform a cystoscopy tomorrow Dysphasia noted Left arm is tingling so hopefully we will regain some function Review of Systems General: Fatigue Neurological: Weakness, Incoordination Objective Exam Vital Signs Vital Signs Date Time Temp Pulse Resp B/P (MAP) Pulse Ox O2 Delivery O2 Flow Rate FiO2 05/18/21 21:28 Room Air 05/18/21 21:25 37.4 05/18/21 20:00 76 18 118/63 (81) 94 Capillary Refill : General Appearance: No Apparent Distress, WD/WN, Chronically ill HEENT: PERRL/EOMI, Normal ENT Inspection, Pharynx Normal Neck: Full Range of Motion, Normal Inspection, Non Tender, Supple, Carotid Bruit Respiratory: Chest Non Tender, Lungs Clear, Normal Breath Sounds, No Accessory Muscle Use, No Respiratory Distress Cardiovascular: Regular Rate, Rhythm, Normal Peripheral Pulses Gastrointestinal: Normal Bowel Sounds, No Organomegaly, No Pulsatile Mass, Non Tender, Soft Back: Normal Inspection, No CVA Tenderness, No Vertebral Tenderness Extremity: Normal Capillary Refill, Non Tender, No Calf Tenderness, No Pedal Edema Neurologic/Psychiatric: Alert, Oriented x3, Normal Mood/Affect, Motor Weakness (Left-sided weakness upper and lower extremities) Skin: Normal Color, Warm/Dry Lymphatic: No Adenopathy Results/Procedures Lab Patient resulted labs reviewed. FIM Transfers Therapy Code Descriptions/Definitions Functional [place] Measure: 0=Not Assessed/NA 4=Minimal Assistance 1=Total Assistance 5=Supervision or Setup 2=Maximal Assistance 6=Modified [place] 3=Moderate Assistance 7=Complete IndependenceSCALE: Activities may be completed with or without assistive devices. 1-Ornbcxgyos-xghrbbi completes the activity by him/herself with no assistance from a helper. 5-Set-up or Clean-up Assistance-helper sets up or cleans up; patient completes activity. [place] assists only prior to or following the activity. 4-Supervision or Touching Assistance-helper provides verbal cues and/or touching/steadying and/or contact guard assistance as patient completes activity. Assistance may be provided throughout the activity or intermittently. 3-Partial/Moderate Assistance-helper does LESS THAN HALF the effort. [place] lifts, holds or supports trunk or limbs, but provides less than half the effort. 2-Substantial/Maximal Assistance-helper does MORE THAN HALF the effort. [place] lifts or holds trunk or limbs and provides more than half the effort. 1-Thvaztypx-qvpuer does ALL the effort. Patient does none of the effort to complete the activity. Or, the assistance of 2 or more helpers is required for the patient to complete the activity. If activity was not attempted, code reason: 7-Patient Refused. 9-Not Applicable-not attempted and the patient did not perform the activity before the current illness, exacerbation or injury. 10-Not Attempted due to Environmental Limitations-(lack of equipment, weather restraints, etc.). 88-Not Attempted due to Medical Conditions or Safety Concerns. Roll Left to Right (QC): 4 Sit to Lying (QC): 4 Sit to Stand (QC): 4 Chair/Kyp-fo-Wurda Xfer(QC): 4 Car Transfer (QC): 3 Gait Training Does the Patient Walk?: Yes Distance: 200' x2 Walk 10 feet (QC): 4 Walk 50 ft with 2 Turns(QC): 4 Walk 150 ft (QC): 4 Walking 10ft/uneven surface-QC: 88 Gait Persons Needed: 1 Gait Assistive Device: Cane Single Point Wheelchair Training Does the Pt Use a Wheelchair?: Yes Distance: 400' Wheel 50 ft with 2 turns (QC): 3 Wheel 150 ft (QC): 3 Type of Wheelchair: Manual Stair Training Stair Training: Handrails/: 1 handrail #of Steps: 4 1 Step (curb) (QC): 4 4 Steps (QC): 4 12 Steps (QC): 88 Stairs: Pattern: Step to Balance Picking up an Object (QC): 88 ADL-Treatment Eating (QC): 5 (Set up required then uses hands or regular utensils to eat.) Oral Hygiene (QC): 6 Bathing Location: L Arm, R Arm, L Upper Leg, R Upper Leg, L Lower Leg (including foot), R Lower Leg (including foot), Chest, Abdomen, Buttocks, Perineal Area Shower/Bathe Self (QC): 6 Upper Body Dressing (QC): 3 Lower Body Dressing (QC): 3 On/Off Footwear (QC): 5 Toileting Hygiene (QC): 3 Toilet Transfer (QC): 4 Assessment/Plan Assessment and Plan Assess & Plan/Chief Complaint Assessment: S/P right carotid endarectomy 04-27-21 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 Umana Plan: Aggressive therapy Urology consult Monitor closely 05/02/2021: Appreciate urology Cystoscopy tomorrow Bowel regimen 05/03/2021: Status post cystoscopy Voiding well now DC Bactrim 05/04/2021: Much improved Moving around much better Monitor bowel function 05/05/2021: Supportive care Ambulating well 05/06/2021: Supportive care Monitor closely 05/07/2021: Dr. Umana appreciated Dysphagia management 05/08/2021: Monitor closely Dysphagia management 05/09/2021: Supportive care Dysphagia management Monitor closely 05/10/2021: Focus on insomnia tonight Monitor closely 05/11/2021: Supportive care Monitor closely 05/12/21: Monitor closely Monitor pain 05/13/21: Monitor dysphagia Fall risk 05/14/2021: Supportive care Build confidence 05/15/2021: Supportive care Monitor progress 05/16/2021: Dramatic improvement Progress with aggressive therapy 05/17/2021: Supportive care Much improved status 05/18/2021: Supportive care Much improved status with hand now (1) CVA (cerebral vascular accident) GUILLERMO CABELLO DO May 18, 2021 09:25
--- NOTE | 2021-05-18 11:49 | Occupational Ther Daily Note ---
OT Current Status-Daily Note Subjective Pt alert, lying in bed. Pt agrees to therapy. Pt states that he feels mediocre. Pt stated that he felt a pain sensation in L fingers. Mental Status/Objective Patient Orientation: Person, Place, Time, Situation ADL-Treatment 2nd session(11:00-12:00)- Pt. alert lying in bed agrees to therapy and shower. Pt. Min A supine to sitting EOB. Pt. ambulated SBA to sink via cane. Sitting at sink Pt. independently performed oral care. Pt. transferred with SBA into shower. Pt using grabbars to stabilize self so OT could doff shorts(pt fatigued and requested assist to manipulate shorts). Pt. sat on shower bench and doffed shirt. Pt. performed shower independently sitting on shower bench using grabbars and hand held shower. Pt. Mod A to don. shirt, via one handed techniques with verbal cues to complete. Pt. threaded L LE into shorts, needed verbal cues to complete then threaded R LE, needed verbal cue to notice need to re-thread into designated hole. Pt. ambulated SBA to recliner in room to don footwear. Pt. verbalized understanding of threading sock on modified sock aid, after verbal cues, holding modifications, and physical cues Pt. completed donning R sock and set up shoe. OT donned L sock and educated Pt. on long handled shoe horn equip. Pt. verbalized understanding and donned L shoe. Pt. waiting for lunch in room, call light/phone in reach. All needs met in room. Therapy Code Descriptions/Definitions Functional [place] Measure: 0=Not Assessed/NA 4=Minimal Assistance 1=Total Assistance 5=Supervision or Setup 2=Maximal Assistance 6=Modified [place] 3=Moderate Assistance 7=Complete IndependenceSCALE: Activities may be completed with or without assistive devices. 8-Iobzrjdoud-lojixuc completes the activity by him/herself with no assistance from a helper. 5-Set-up or Clean-up Assistance-helper sets up or cleans up; patient completes activity. [place] assists only prior to or following the activity. 4-Supervision or Touching Assistance-helper provides verbal cues and/or touching/steadying and/or contact guard assistance as patient completes activity. Assistance may be provided throughout the activity or intermittently. 3-Partial/Moderate Assistance-helper does LESS THAN HALF the effort. [place] lifts, holds or supports trunk or limbs, but provides less than half the effort. 2-Substantial/Maximal Assistance-helper does MORE THAN HALF the effort. [place] lifts or holds trunk or limbs and provides more than half the effort. 5-Jxvoucbbv-hikqcw does ALL the effort. Patient does none of the effort to complete the activity. Or, the assistance of 2 or more helpers is required for the patient to complete the activity. If activity was not attempted, code reason: 7-Patient Refused. 9-Not Applicable-not attempted and the patient did not perform the activity before the current illness, exacerbation or injury. 10-Not Attempted due to Environmental Limitations-(lack of equipment, weather restraints, etc.). 88-Not Attempted due to Medical Conditions or Safety Concerns. Oral Hygiene (QC): 6 Shower/Bathe Self (QC): 6 Upper Body Dressing (QC): 3 (mod A) Lower Body Dressing (QC): 3 (Min A to untangle shorts from toes while threading.) On/Off Footwear: 3 (mod A) Other Treatment 1st session([id number]) ROM massage, stretching and Ex. Pt reported less pain and demonstrated increased AROM throughout L UE. After therapy, pt lying in bed with call light/phone in reach. All needs met in room. Education Teaching Recipient: Patient Teaching Methods: Demonstration, Discussion Response to Teaching: Verbalize Understanding, Return Demonstration, Reinforcement Needed OT Short Term Goals Short Term Goals Time Frame: May 11, 2021 Shower/bathe self: 3 Upper body dressin Lower body dressin Putting on/taking off footwear: 3 OT Skilled Nursing Goals Skilled Nursing Goals Time Frame: Jun 01, 2021 Eating (QC): 5 Oral Hygiene (QC): 5 Toileting Hygiene (QC): 4 Shower/Bathe Self (QC): 4 Upper Body Dressing (QC): 5 Lower Body Dressing (QC): 4 On/Off Footwear (QC): 4 Additional Goals: 1-Demonstrate ADL Tasks, 2-Verbalize Understanding, 3- ImproveStrength/Jose Carlos 1=Demonstrate adherence to instructed precautions during ADL tasks. 2=Patient will verbalize/demonstrate understanding of assistive devices/modifications for ADL. 3=Patient will improve strength/tolerance for activity to enable patient to perform ADL's. OT Education/Plan Problem List/Assessment Assessment: Decreased Activ Tolerance, Decreased UE Strength, Impaired Funct Balance, Impaired Self-Care Skills, Restricted Funct UE ROM, Visual-Perceptual Deficit Discharge Recommendations Plan/Recommendations: Continue POC Treatment Plan/Plan of Care Patient would benefit from OT for education, treatment and training to promote independence in ADL's, mobility, safety and/or upper extremity function for ADL's. Plan of Care: ADL Retraining, Functional Mobility, Group Exercise/Act as Ind, UE Funct Exercise/Act Treatment Duration: Jun 01, 2021 Frequency: 2 times per week Estimated Hrs Per Day: 1.5 hours per day Agreement: Yes Rehab Potential: Fair Time/GCodes Start Time: 09:00 (1100) Stop Time: 09:30 (1200) Total Time Billed (hr/min): 90 Billed Treatment Time 1 visit([id number])- NM 2 (30 min) 2 visit([id number])- ADL 4 (60 min) AAKASH HODGES May 18, 2021 11:49
--- NOTE | 2021-05-18 14:56 | Physical Therapy Daily Note ---
PT Daily Note-Current Subjective Pt agreeable. Pt reports he will check and see if he has a cane. "I know I have everything else I will need. We have a bunch of handicap equipment from when my dad was sick." Pt denies pain. Pt reports he is getting stronger. Mental Status Patient Orientation: Person, Place, Situation Transfers SCALE: Activities may be completed with or without assistive devices. 7-Pjsdaptzeh-hajuwth completes the activity by him/herself with no assistance from a helper. 5-Set-up or Clean-up Assistance-helper sets up or cleans up; patient completes activity. [place] assists only prior to or following the activity. 4-Supervision or Touching Assistance-helper provides verbal cues and/or touching/steadying and/or contact guard assistance as patient completes ac tivity. Assistance may be provided throughout the activity or intermittently. 3-Partial/Moderate Assistance-helper does LESS THAN HALF the effort. [place] lifts, holds or supports trunk or limbs, but provides less than half the effort. 2-Substantial/Maximal Assistance-helper does MORE THAN HALF the effort. [place] lifts or holds trunk or limbs and provides more than half the effort. 8-Mjlthzbmt-xgejhi does ALL the effort. Patient does none of the effort to complete the activity. Or, the assistance of 2 or more helpers is required for the patient to complete the activity. If activity was not attempted, code reason: 7-Patient Refused. 9-Not Applicable-not attempted and the patient did not perform the activity before the current illness, exacerbation or injury. 10-Not Attempted due to Environmental Limitations-(lack of equipment, weather restraints, etc.). 88-Not Attempted due to Medical Conditions or Safety Concerns. CGA for all functional mobility Weight Bearing Full Weight Bearing Full Weight Bearing Gait Training Gait Assistive Device: Cane Single Point Pt amb with SPC and CGA 1 x 200ft, 1 x 75ft Exercises Supine Ex: Ankle pumps, Quad Set, Heel Slides, Short Arc Quads, Hip abd/add Supine Reps: 20 Pt performed opp hand to opp knee x 15 in hooklying and bridge x 15 NuStep Minutes: 10 NuStep Workload: 1 Treatments Practiced donning socks with set up and sock aid. Pt slipped shoes on with set up. Pt toileted with SBA Assessment Current Status: Good Progress Pt is CGA for all mobility for safety. PT Short Term Goals Short Term Goals Time Frame: May 08, 2021 Roll Left & Right: 4 Sit to lyin (Cynthia) Lying to sitting on side of be: 3 (Cynthia) Sit to stand: 3 (Cynthia) Chair/qzu-lw-rteuv transfer: 3 (Cynthia) Walk 10 feet: 3 (Cynthia) Walk 50 feet with two turns: 3 (Cynthia) PT Furnace Fitter Goals Furnace Fitter Goals PT Halfway Goals Time Frame: May 22, 2021 Roll Left & Right (QC): 6 Sit to Lying (QC): 4 (SBA) Lying-Sitting on Side/Bed(QC): 4 (SBA) Sit to Stand (QC): 4 (SBA) Chair/Muj-tj-Glbhz Xfer(QC): 4 (SBA) Toilet Transfer (QC): 4 (SBA) Car Transfer (QC): 4 (SBA) Does the Patient Walk: Yes Walk 10 feet (QC): 4 (CGA) Walk 50ft with 2 Turns (QC): 4 (CGA) Walk 150 ft (QC): 88 Walking 10ft on Uneven Surface: 4 (CGA) 1 Step (curb) (QC): 4 (CGA) 4 Steps (QC): 4 (CGA) 12 Steps (QC): 88 Picking up an Object (QC): 88 Wheel 50 feet with 2 turns (QC: 5 Wheel 150 feet: 5 PT Plan Treatment/Plan Treatment Plan: Continue Plan of Care Treatment Plan: Bed Mobility, Education, Functional Activity Jose Carlos, Functional Strength, Group Therapy, Gait, Safety, Therapeutic Exercise, Transfers Treatment Duration: May 22, 2021 Frequency: At least 5 of 7 days/Wk (IRF) Estimated Hrs Per Day: 1.5 hours per day Patient and/or Family Agrees t: Yes Time/GCodes Time In: 1000 Time Out: 1100 Total Billed Treatment Time: 60 Total Billed Treatment 1, FA x 15', Gait x 15', Ex x 30' CHARAN THOMPSON CPTA May 18, 2021 14:56
--- NOTE | 2021-05-18 15:03 | Physical Therapy Daily Note ---
PT Daily Note-Current Subjective Pt agreeable and without complaint. Pt up in recliner with shoes on and ready for PT. Mental Status Patient Orientation: Person, Place, Situation Transfers SCALE: Activities may be completed with or without assistive devices. 6-Xpjxtvpoco-cikyjcn completes the activity by him/herself with no assistance from a helper. 5-Set-up or Clean-up Assistance-helper sets up or cleans up; patient completes activity. [place] assists only prior to or following the activity. 4-Supervision or Touching Assistance-helper provides verbal cues and/or touching/steadying and/or contact guard assistance as patient completes activity. Assistance may be provided throughout the activity or intermittently. 3-Partial/Moderate Assistance-helper does LESS THAN HALF the effort. [place] lifts, holds or supports trunk or limbs, but provides less than half the effort. 2-Substantial/Maximal Assistance-helper does MORE THAN HALF the effort. [place] lifts or holds trunk or limbs and provides more than half the effort. 7-Ypdedjslc-ekkngu does ALL the effort. Patient does none of the effort to complete the activity. Or, the assistance of 2 or more helpers is required for the patient to complete the activity. If activity was not attempted, code reason: 7-Patient Refused. 9-Not Applicable-not attempted and the patient did not perform the activity before the current illness, exacerbation or injury. 10-Not Attempted due to Environmental Limitations-(lack of equipment, weather restraints, etc.). 88-Not Attempted due to Medical Conditions or Safety Concerns. CGA for all transfers. Practiced approach and transfer between (triangle) efadb-msjwwepj-jyr x 3 bouts each. Weight Bearing Full Weight Bearing Full Weight Bearing Gait Training Gait Assistive Device: Cane Single Point Pt amb 2 x 15' with CGA Exercises Seated Therapy Exercises: Ankle pumps, Long arc quads, Hip flexion Seated Reps: 20 Treatments Pt stood at counter top for support: november, curl, hip abd x 20 each. Pt performed seated horizontal dusting, standing circular dusting with (L) hand. Pt seated EOB post therapy to eat [place]. Assessment Current Status: Good Progress Pt progressing nicely with all functional mobility. Pt showing safe mobility and awareness during treatment session. Pt with call light and all needs met. PT Short Term Goals Short Term Goals Time Frame: May 08, 2021 Roll Left & Right: 4 Sit to lyin (Cynthia) Lying to sitting on side of be: 3 (Cynthia) Sit to stand: 3 (Cynthia) Chair/dyu-ec-xnktq transfer: 3 (Cynthia) Walk 10 feet: 3 (Cynthia) Walk 50 feet with two turns: 3 (Cynthia) PT Longterm Goals Longterm Goals PT Manager Business Management Goals Time Frame: May 22, 2021 Roll Left & Right (QC): 6 Sit to Lying (QC): 4 (SBA) Lying-Sitting on Side/Bed(QC): 4 (SBA) Sit to Stand (QC): 4 (SBA) Chair/Vlz-kl-Pswbo Xfer(QC): 4 (SBA) Toilet Transfer (QC): 4 (SBA) Car Transfer (QC): 4 (SBA) Does the Patient Walk: Yes Walk 10 feet (QC): 4 (CGA) Walk 50ft with 2 Turns (QC): 4 (CGA) Walk 150 ft (QC): 88 Walking 10ft on Uneven Surface: 4 (CGA) 1 Step (curb) (QC): 4 (CGA) 4 Steps (QC): 4 (CGA) 12 Steps (QC): 88 Picking up an Object (QC): 88 Wheel 50 feet with 2 turns (QC: 5 Wheel 150 feet: 5 PT Plan Treatment/Plan Treatment Plan: Continue Plan of Care Treatment Plan: Bed Mobility, Education, Functional Activity Jose Carlos, Functional Strength, Group Therapy, Gait, Safety, Therapeutic Exercise, Transfers Treatment Duration: May 22, 2021 Frequency: At least 5 of 7 days/Wk (IRF) Estimated Hrs Per Day: 1.5 hours per day Patient and/or Family Agrees t: Yes Time/GCodes Time In: 1300 Time Out: 1330 Total Billed Treatment Time: 30 Total Billed Treatment 1, ther ex 15', FA 15' CHARAN THOMPSON CPTA May 18, 2021 15:03
[2021-05-18] MEDS: TAMSULOSIN 0.4 MG (FLOMAX) CAP PO SCH (17:34)
[2021-05-18 20:00] VITALS: BP 118/63
[2021-05-18] MEDS: MIRTAZAPINE 15 MG (REMERON) TAB PO SCH (21:24)
[2021-05-18] MEDS: ACETAMINOPHEN 325 MG TABLET PO PRN (21:25)
[2021-05-18] MEDS: MELATONIN 3 MG TABLET PO SCH (21:25)
--- NOTE | 2021-05-19 06:46 | PM&R Progress Note ---
Subjective HPI/CC On Admission Date Seen by Provider: May 19, 2021 Time Seen by Provider: 12:30 Subjective/Events-last exam 05/19/2021: Patient doing really well Bowels moved yesterday Restarted his home supplements of vitamins 05/18/2021: Pt doing really well Pleased with his progress Moving his hand much more today Doing very well 05/17/2021: Pt doing very well No major changes Bowels moved yesterday Pleased with his progress 05/16/2021: Pt doing really well Gripping his left hand Overall feels like he is improving No pain is reported Slept well Missed note inadvertently late entry 05/15/2021: Pt slept really well last night Bowels moved a couple of days ago No pain is reported Doing very well with a fabiano-cane 05/14/2021: Pt doing really well Potassium 3.4 Bowels moving Feels like he is not doing well but he is 05/13/21: Slept a bit better No dizziness after getting up this morning Somatic complaints Very slow recovery mentally from CVA 05/12/21: Patient doing well Not sleeping too well at times No falls Walking well Voiding well 05/11/2021: Patient feels pretty good Slept very well last night No change in medication Patient doing pretty well 05/10/2021: Pt doing really well He didnt sleep again well last night so will initiated Melatonin 6 mg and Remeron of 15 Dr. Valencia will see him PRN now Changed bed to make it more comfortable Bowels moved today 05/09/2021: Patient progressing well Bowels moved last night Vision is better in the right eye Somatic complaints 05/08/2021: Pt walking with a cane and a gait belt Left side neglect is noted Vision is improved Barium swallow will need to be done on the Pt as an outpatient Fish oil will be changed to bunny red per his home dose 05/07/2021: Pt doing pretty well but having things stuck in his throat He has had multiple EGDs and stretching before so will have Dr. Umana see him Multiple somatic complaints 05/06/2021: Patient doing really well today Bowels moved today Eating a bit more We will have speech therapy change diet 05/05/2021: Patient doing really well Seems to have little confidence Discontinue Carafate due to side effects Incision looks good on the right carotid Voiding well Bowels are moving 05/04/2021: Pt doing pretty well Walked in the halls Bowels moving a little bit now Urination doing pretty well 05/03/2021: Pt doing pretty well Cystoscope done and now voiding well DC Bactrim since he is having difficulty swallowing GERD issues continue Proton pump inhibitor and Carafate maintained Will have a suppository if bowels have not moved later 05/02/2021: Pt doing pretty well Became tearful a bit today No BM since 04/27 so laxatives given Nausea a bit last night Dr. Valencia saw him and will perform a cystoscopy tomorrow Dysphasia noted Left arm is tingling so hopefully we will regain some function Review of Systems General: Fatigue, Malaise Objective Exam Vital Signs Vital Signs Date Time Temp Pulse Resp B/P (MAP) Pulse Ox O2 Delivery O2 Flow Rate FiO2 05/19/21 21:10 Room Air 05/19/21 19:56 37.0 71 16 108/64 (79) 97 Capillary Refill : General Appearance: No Apparent Distress, WD/WN, Chronically ill HEENT: PERRL/EOMI, Normal ENT Inspection, Pharynx Normal Neck: Full Range of Motion, Normal Inspection, Non Tender, Supple, Carotid Bruit Respiratory: Chest Non Tender, Lungs Clear, Normal Breath Sounds, No Accessory Muscle Use, No Respiratory Distress Cardiovascular: Regular Rate, Rhythm, Normal Peripheral Pulses Gastrointestinal: Normal Bowel Sounds, No Organomegaly, No Pulsatile Mass, Non Tender, Soft Back: Normal Inspection, No CVA Tenderness, No Vertebral Tenderness Extremity: Normal Capillary Refill, Non Tender, No Calf Tenderness, No Pedal Edema Neurologic/Psychiatric: Alert, Oriented x3, Normal Mood/Affect, Motor Weakness (Left-sided weakness upper and lower extremities) Skin: Normal Color, Warm/Dry Lymphatic: No Adenopathy Results/Procedures Lab Patient resulted labs reviewed. FIM Transfers Therapy Code Descriptions/Definitions Functional [place] Measure: 0=Not Assessed/NA 4=Minimal Assistance 1=Total Assistance 5=Supervision or Setup 2=Maximal Assistance 6=Modified [place] 3=Moderate Assistance 7=Complete IndependenceSCALE: Activities may be completed with or without assistive devices. 1-Lhbcmhcjea-dpgkljl completes the activity by him/herself with no assistance from a helper. 5-Set-up or Clean-up Assistance-helper sets up or cleans up; patient completes activity. [place] assists only prior to or following the activity. 4-Supervision or Touching Assistance-helper provides verbal cues and/or touching/steadying and/or contact guard assistance as patient completes activity. Assistance may be provided throughout the activity or intermittently. 3-Partial/Moderate Assistance-helper does LESS THAN HALF the effort. [place] lifts, holds or supports trunk or limbs, but provides less than half the effort. 2-Substantial/Maximal Assistance-helper does MORE THAN HALF the effort. [place] lifts or holds trunk or limbs and provides more than half the effort. 7-Iscpkyjhy-uouixz does ALL the effort. Patient does none of the effort to complete the activity. Or, the assistance of 2 or more helpers is required for the patient to complete the activity. If activity was not attempted, code reason: 7-Patient Refused. 9-Not Applicable-not attempted and the patient did not perform the activity before the current illness, exacerbation or injury. 10-Not Attempted due to Environmental Limitations-(lack of equipment, weather restraints, etc.). 88-Not Attempted due to Medical Conditions or Safety Concerns. Roll Left to Right (QC): 4 Sit to Lying (QC): 4 Sit to Stand (QC): 4 Chair/Bic-la-Xeeem Xfer(QC): 4 Car Transfer (QC): 3 Gait Training Does the Patient Walk?: Yes Distance: 200' x2 Walk 10 feet (QC): 4 Walk 50 ft with 2 Turns(QC): 4 Walk 150 ft (QC): 4 Walking 10ft/uneven surface-QC: 88 Gait Persons Needed: 1 Gait Assistive Device: Cane Single Point Wheelchair Training Does the Pt Use a Wheelchair?: Yes Distance: 400' Wheel 50 ft with 2 turns (QC): 3 Wheel 150 ft (QC): 3 Type of Wheelchair: Manual Stair Training Stair Training: Handrails/: 1 handrail #of Steps: 4 1 Step (curb) (QC): 4 4 Steps (QC): 4 12 Steps (QC): 88 Stairs: Pattern: Step to Balance Picking up an Object (QC): 88 ADL-Treatment Eating (QC): 5 (Set up required then uses hands or regular utensils to eat.) Oral Hygiene (QC): 6 Bathing Location: L Arm, R Arm, L Upper Leg, R Upper Leg, L Lower Leg (including foot), R Lower Leg (including foot), Chest, Abdomen, Buttocks, Perineal Area Shower/Bathe Self (QC): 6 Upper Body Dressing (QC): 3 (mod A) Lower Body Dressing (QC): 3 (Min A to untangle shorts from toes while threading.) On/Off Footwear (QC): 3 (mod A) Toileting Hygiene (QC): 3 Toilet Transfer (QC): 4 Assessment/Plan Assessment and Plan Assess & Plan/Chief Complaint Assessment: S/P right carotid endarectomy 04-27-21 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 Umana Plan: Aggressive therapy Urology consult Monitor closely 05/02/2021: Appreciate urology Cystoscopy tomorrow Bowel regimen 05/03/2021: Status post cystoscopy Voiding well now DC Bactrim 05/04/2021: Much improved Moving around much better Monitor bowel function 05/05/2021: Supportive care Ambulating well 05/06/2021: Supportive care Monitor closely 05/07/2021: Dr. Umana appreciated Dysphagia management 05/08/2021: Monitor closely Dysphagia management 05/09/2021: Supportive care Dysphagia management Monitor closely 05/10/2021: Focus on insomnia tonight Monitor closely 05/11/2021: Supportive care Monitor closely 05/12/21: Monitor closely Monitor pain 05/13/21: Monitor dysphagia Fall risk 05/14/2021: Supportive care Build confidence 05/15/2021: Supportive care Monitor progress 05/16/2021: Dramatic improvement Progress with aggressive therapy 05/17/2021: Supportive care Much improved status 05/18/2021: Supportive care Much improved status with hand now 05/19/2021: Supportive care Monitor closely (1) CVA (cerebral vascular accident) GUILLERMO CABELLO DO May 19, 2021 06:46
[2021-05-19] MEDS: KCL 10 MEQ TAB (MICRO K) PO SCH (06:55)
[2021-05-19] MEDS: LACTOBACILLUS ACIDOPHILUS (PROBIOTIC) CAPSULE PO SCH (08:26)
[2021-05-19] MEDS: amLODIPine 5 MG (NORVASC) TAB PO SCH (08:26)
[2021-05-19] MEDS: PANTOPRAZOLE 40 MG (PROTONIX) TAB PO SCH ×2 (08:26→21:03)
[2021-05-19] MEDS: CLOPIDOGREL 75 MG (PLAVIX) TABLET PO SCH (08:26)
[2021-05-19] MEDS: ASPIRIN E.C. 81 MG (ECOTRIN) TAB PO SCH (08:26)
[2021-05-19] MEDS: MEGA RED PO SCH (08:28)
[2021-05-19] MEDS: polyethylene glycoL POWDER 17 GM (MIRALAX) PACK PO SCH ×2 (08:30→21:07)
[2021-05-19] MEDS: SENNA W/DOCUSATE (SENOKOT S) TABLET PO SCH ×2 (08:30→21:07)
[2021-05-19] MEDS: DOCUSATE SODIUM 100 MG (COLACE) CAP PO SCH ×2 (08:30→21:06)
[2021-05-19 08:31] VITALS: BP 119/75
--- NOTE | 2021-05-19 11:54 | Physical Therapy Daily Note ---
PT Daily Note-Current Subjective Pt is agreeable to treatment. No issues voiced on arrival or during treatment. Mental Status Patient Orientation: Person, Place Transfers SCALE: Activities may be completed with or without assistive devices. 9-Plukudocep-tjwyalx completes the activity by him/herself with no assistance from a helper. 5-Set-up or Clean-up Assistance-helper sets up or cleans up; patient completes activity. [place] assists only prior to or following the activity. 4-Supervision or Touching Assistance-helper provides verbal cues and/or touching/steadying and/or contact guard assistance as patient completes activity. Assistance may be provided throughout the activity or intermittently. 3-Partial/Moderate Assistance-helper does LESS THAN HALF the effort. [place] li fts, holds or supports trunk or limbs, but provides less than half the effort. 2-Substantial/Maximal Assistance-helper does MORE THAN HALF the effort. [place] lifts or holds trunk or limbs and provides more than half the effort. 7-Jzehguhqk-zxzmzp does ALL the effort. Patient does none of the effort to complete the activity. Or, the assistance of 2 or more helpers is required for the patient to complete the activity. If activity was not attempted, code reason: 7-Patient Refused. 9-Not Applicable-not attempted and the patient did not perform the activity before the current illness, exacerbation or injury. 10-Not Attempted due to Environmental Limitations-(lack of equipment, weather restraints, etc.). 88-Not Attempted due to Medical Conditions or Safety Concerns. Roll Left & Right (QC): 3 Sit to Lying (QC): 3 Lying to Sitting/Side of Bed(Q: 3 Sit to Stand (QC): 3 Weight Bearing Full Weight Bearing Full Weight Bearing Gait Training Does the Patient Walk?: Yes Distance: 215ft Walk 10 feet (QC): 4 Walk 50 ft with 2 Turns(QC): 4 Walk 150 ft (QC): 4 Gait Assistive Device: Cane Single Point Needs cueing due to (L) neglect. Exercises Seated Therapy Exercises: LE Protocol Seated Reps: 20 Assessment Current Status: Good Progress Pt is stable throughout gait, but had (L) neglect issues in the last 50ft. PT Short Term Goals Short Term Goals Time Frame: May 08, 2021 Roll Left & Right: 4 Sit to lyin (Cynthia) Lying to sitting on side of be: 3 (Cynthia) Sit to stand: 3 (Cynthia) Chair/vnq-sn-owlhv transfer: 3 (Cynthia) Walk 10 feet: 3 (Cynthia) Walk 50 feet with two turns: 3 (Cynthia) PT Manager Supply Goals Assisted Goals PT Manager Supply Goals Time Frame: May 22, 2021 Roll Left & Right (QC): 6 Sit to Lying (QC): 4 (SBA) Lying-Sitting on Side/Bed(QC): 4 (SBA) Sit to Stand (QC): 4 (SBA) Chair/Pkd-ow-Rzjov Xfer(QC): 4 (SBA) Toilet Transfer (QC): 4 (SBA) Car Transfer (QC): 4 (SBA) Does the Patient Walk: Yes Walk 10 feet (QC): 4 (CGA) Walk 50ft with 2 Turns (QC): 4 (CGA) Walk 150 ft (QC): 88 Walking 10ft on Uneven Surface: 4 (CGA) 1 Step (curb) (QC): 4 (CGA) 4 Steps (QC): 4 (CGA) 12 Steps (QC): 88 Picking up an Object (QC): 88 Wheel 50 feet with 2 turns (QC: 5 Wheel 150 feet: 5 PT Plan Treatment/Plan Treatment Plan: Continue Plan of Care Treatment Plan: Bed Mobility, Education, Functional Activity Jose Carlos, Functional Strength, Group Therapy, Gait, Safety, Therapeutic Exercise, Transfers Treatment Duration: May 22, 2021 Frequency: At least 5 of 7 days/Wk (IRF) Estimated Hrs Per Day: 1.5 hours per day Patient and/or Family Agrees t: Yes Time/GCodes Time In: 0952 Time Out: 1007 Total Billed Treatment Time: 15 Total Billed Treatment 1, gt 15 LASHANDA VALADEZ PT May 19, 2021 11:54
[2021-05-19] MEDS: ACETAMINOPHEN 325 MG TABLET PO PRN (15:49)
[2021-05-19] MEDS: TAMSULOSIN 0.4 MG (FLOMAX) CAP PO SCH (17:13)
[2021-05-19 19:56] VITALS: BP 108/64
[2021-05-19] MEDS: MIRTAZAPINE 15 MG (REMERON) TAB PO SCH (21:03)
[2021-05-19] MEDS: MELATONIN 3 MG TABLET PO SCH (21:03)
[2021-05-20] MEDS: KCL 10 MEQ TAB (MICRO K) PO SCH (06:43)
[2021-05-20 07:30] VITALS: BP 117/58
[2021-05-20] MEDS ORDERED: ZINC GLUCONATE 10 MG PO SCH (09:00)
[2021-05-20] MEDS ORDERED: GARLIC 500 MG PO SCH (09:00)
[2021-05-20] MEDS: MEGA RED PO SCH (09:13)
[2021-05-20] MEDS: PANTOPRAZOLE 40 MG (PROTONIX) TAB PO SCH ×2 (09:14→19:59)
[2021-05-20] MEDS: LACTOBACILLUS ACIDOPHILUS (PROBIOTIC) CAPSULE PO SCH (09:14)
[2021-05-20] MEDS: CLOPIDOGREL 75 MG (PLAVIX) TABLET PO SCH (09:15)
[2021-05-20] MEDS: amLODIPine 5 MG (NORVASC) TAB PO SCH (09:15)
[2021-05-20] MEDS: VITAMIN D3 125 MCG (5,000 UNITS) CAPSULE PO SCH (09:15)
[2021-05-20] MEDS: SENNA W/DOCUSATE (SENOKOT S) TABLET PO SCH ×2 (09:16→19:52)
[2021-05-20] MEDS: polyethylene glycoL POWDER 17 GM (MIRALAX) PACK PO SCH ×2 (09:16→19:52)
[2021-05-20] MEDS: ASPIRIN E.C. 81 MG (ECOTRIN) TAB PO SCH (09:17)
[2021-05-20] MEDS: DOCUSATE SODIUM 100 MG (COLACE) CAP PO SCH ×2 (09:17→19:52)
--- NOTE | 2021-05-20 11:26 | PM&R Progress Note ---
Subjective HPI/CC On Admission Date Seen by Provider: May 20, 2021 Time Seen by Provider: 12:00 Subjective/Events-last exam 05/20/2021: Patient doing very well Moving left hand Using OT techniques for left hand weakness Moving around well 05/19/2021: Patient doing really well Bowels moved yesterday Restarted his home supplements of vitamins 05/18/2021: Pt doing really well Pleased with his progress Moving his hand much more today Doing very well 05/17/2021: Pt doing very well No major changes Bowels moved yesterday Pleased with his progress 05/16/2021: Pt doing really well Gripping his left hand Overall feels like he is improving No pain is reported Slept well Missed note inadvertently late entry 05/15/2021: Pt slept really well last night Bowels moved a couple of days ago No pain is reported Doing very well with a fabiano-cane 05/14/2021: Pt doing really well Potassium 3.4 Bowels moving Feels like he is not doing well but he is 05/13/21: Slept a bit better No dizziness after getting up this morning Somatic complaints Very slow recovery mentally from CVA 05/12/21: Patient doing well Not sleeping too well at times No falls Walking well Voiding well 05/11/2021: Patient feels pretty good Slept very well last night No change in medication Patient doing pretty well 05/10/2021: Pt doing really well He didnt sleep again well last night so will initiated Melatonin 6 mg and Remeron of 15 Dr. Valencia will see him PRN now Changed bed to make it more comfortable Bowels moved today 05/09/2021: Patient progressing well Bowels moved last night Vision is better in the right eye Somatic complaints 05/08/2021: Pt walking with a cane and a gait belt Left side neglect is noted Vision is improved Barium swallow will need to be done on the Pt as an outpatient Fish oil will be changed to bunny red per his home dose 05/07/2021: Pt doing pretty well but having things stuck in his throat He has had multiple EGDs and stretching before so will have Dr. Umana see him Multiple somatic complaints 05/06/2021: Patient doing really well today Bowels moved today Eating a bit more We will have speech therapy change diet 05/05/2021: Patient doing really well Seems to have little confidence Discontinue Carafate due to side effects Incision looks good on the right carotid Voiding well Bowels are moving 05/04/2021: Pt doing pretty well Walked in the halls Bowels moving a little bit now Urination doing pretty well 05/03/2021: Pt doing pretty well Cystoscope done and now voiding well DC Bactrim since he is having difficulty swallowing GERD issues continue Proton pump inhibitor and Carafate maintained Will have a suppository if bowels have not moved later 05/02/2021: Pt doing pretty well Became tearful a bit today No BM since 04/27 so laxatives given Nausea a bit last night Dr. Valencia saw him and will perform a cystoscopy tomorrow Dysphasia noted Left arm is tingling so hopefully we will regain some function Review of Systems General: Fatigue Neurological: Weakness Objective Exam Vital Signs Vital Signs Date Time Temp Pulse Resp B/P (MAP) Pulse Ox O2 Delivery O2 Flow Rate FiO2 05/20/21 09:00 Room Air 05/20/21 07:30 37.0 81 20 117/58 (77) 96 Capillary Refill : General Appearance: No Apparent Distress, WD/WN, Chronically ill HEENT: PERRL/EOMI, Normal ENT Inspection, Pharynx Normal Neck: Full Range of Motion, Normal Inspection, Non Tender, Supple, Carotid Bruit Respiratory: Chest Non Tender, Lungs Clear, Normal Breath Sounds, No Accessory Muscle Use, No Respiratory Distress Cardiovascular: Regular Rate, Rhythm, Normal Peripheral Pulses Gastrointestinal: Normal Bowel Sounds, No Organomegaly, No Pulsatile Mass, Non Tender, Soft Back: Normal Inspection, No CVA Tenderness, No Vertebral Tenderness Extremity: Normal Capillary Refill, Non Tender, No Calf Tenderness, No Pedal Ed vita Neurologic/Psychiatric: Alert, Oriented x3, Normal Mood/Affect, Motor Weakness (Left-sided weakness upper and lower extremities) Skin: Normal Color, Warm/Dry Lymphatic: No Adenopathy Results/Procedures Lab Patient resulted labs reviewed. FIM Transfers Therapy Code Descriptions/Definitions Functional [place] Measure: 0=Not Assessed/NA 4=Minimal Assistance 1=Total Assistance 5=Supervision or Setup 2=Maximal Assistance 6=Modified [place] 3=Moderate Assistance 7=Complete IndependenceSCALE: Activities may be completed with or without assistive devices. 8-Icrshdwjoj-renjzyu completes the activity by him/herself with no assistance from a helper. 5-Set-up or Clean-up Assistance-helper sets up or cleans up; patient completes activity. [place] assists only prior to or following the activity. 4-Supervision or Touching Assistance-helper provides verbal cues and/or touching/steadying and/or contact guard assistance as patient completes activity. Assistance may be provided throughout the activity or intermittently. 3-Partial/Moderate Assistance-helper does LESS THAN HALF the effort. [place] lifts, holds or supports trunk or limbs, but provides less than half the effort. 2-Substantial/Maximal Assistance-helper does MORE THAN HALF the effort. [place] lifts or holds trunk or limbs and provides more than half the effort. 5-Kyzitwvit-ojhvue does ALL the effort. Patient does none of the effort to complete the activity. Or, the assistance of 2 or more helpers is required for the patient to complete the activity. If activity was not attempted, code reason: 7-Patient Refused. 9-Not Applicable-not attempted and the patient did not perform the activity before the current illness, exacerbation or injury. 10-Not Attempted due to Environmental Limitations-(lack of equipment, weather restraints, etc.). 88-Not Attempted due to Medical Conditions or Safety Concerns. Roll Left to Right (QC): 3 Sit to Lying (QC): 3 Sit to Stand (QC): 3 Chair/Don-cr-Hppqp Xfer(QC): 4 Car Transfer (QC): 3 Gait Training Does the Patient Walk?: Yes Distance: 215ft Walk 10 feet (QC): 4 Walk 50 ft with 2 Turns(QC): 4 Walk 150 ft (QC): 4 Walking 10ft/uneven surface-QC: 88 Gait Persons Needed: 1 Gait Assistive Device: Cane Single Point Wheelchair Training Does the Pt Use a Wheelchair?: Yes Distance: 400' Wheel 50 ft with 2 turns (QC): 3 Wheel 150 ft (QC): 3 Type of Wheelchair: Manual Stair Training Stair Training: Handrails/: 1 handrail #of Steps: 4 1 Step (curb) (QC): 4 4 Steps (QC): 4 12 Steps (QC): 88 Stairs: Pattern: Step to Balance Picking up an Object (QC): 88 ADL-Treatment Eating (QC): 5 (Set up required then uses hands or regular utensils to eat.) Oral Hygiene (QC): 6 Bathing Location: L Arm, R Arm, L Upper Leg, R Upper Leg, L Lower Leg (including foot), R Lower Leg (including foot), Chest, Abdomen, Buttocks, Perineal Area Shower/Bathe Self (QC): 6 Upper Body Dressing (QC): 3 (mod A) Lower Body Dressing (QC): 3 (Min A to untangle shorts from toes while threading.) On/Off Footwear (QC): 3 (mod A) Toileting Hygiene (QC): 3 Toilet Transfer (QC): 4 Assessment/Plan Assessment and Plan Assess & Plan/Chief Complaint Assessment: S/P right carotid endarectomy 04-27-21 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 Umana Plan: Aggressive therapy Urology consult Monitor closely 05/02/2021: Appreciate urology Cystoscopy tomorrow Bowel regimen 05/03/2021: Status post cystoscopy Voiding well now DC Bactrim 05/04/2021: Much improved Moving around much better Monitor bowel function 05/05/2021: Supportive care Ambulating well 05/06/2021: Supportive care Monitor closely 05/07/2021: Dr. Umana appreciated Dysphagia management 05/08/2021: Monitor closely Dysphagia management 05/09/2021: Supportive care Dysphagia management Monitor closely 05/10/2021: Focus on insomnia tonight Monitor closely 05/11/2021: Supportive care Monitor closely 05/12/21: Monitor closely Monitor pain 05/13/21: Monitor dysphagia Fall risk 05/14/2021: Supportive care Build confidence 05/15/2021: Supportive care Monitor progress 05/16/2021: Dramatic improvement Progress with aggressive therapy 05/17/2021: Supportive care Much improved status 05/18/2021: Supportive care Much improved status with hand now 05/19/2021: Supportive care Monitor closely 05/20/2021: Patient much improved Left hand exercises (1) CVA (cerebral vascular accident) GUILLERMO CABELLO DO May 20, 2021 11:26
[2021-05-20] MEDS: TAMSULOSIN 0.4 MG (FLOMAX) CAP PO SCH (18:08)
[2021-05-20] MEDS: MIRTAZAPINE 15 MG (REMERON) TAB PO SCH (19:59)
[2021-05-20] MEDS: MELATONIN 3 MG TABLET PO SCH (19:59)
[2021-05-20 20:00] VITALS: BP 122/73
[2021-05-21] MEDS: ACETAMINOPHEN 325 MG TABLET PO PRN (01:40)
[2021-05-21 05:53] LABS: BASOPHILS # (AUTO) 0.1 10^3/uL (0.0-0.1); BASOPHILS % (AUTO) 1 % (0-10); EOSINOPHILS # (AUTO) 0.4 10^3/uL (0.0-0.3); EOSINOPHILS % (AUTO) 7 % (0-10); HEMATOCRIT 35 % (40-54); HEMOGLOBIN 10.7 g/dL (13.3-17.7); LYMPHOCYTES # (AUTO) 2.3 10^3/uL (1.0-4.0); LYMPHOCYTES % (AUTO) 36 % (12-44); MEAN CORPUSCULAR HEMOGLOBIN 29 pg (25-34); MEAN CORPUSCULAR HGB CONC 31 g/dL (32-36); MEAN CORPUSCULAR VOLUME 92 fL (80-99); MONOCYTES # (AUTO) 0.5 10^3/uL (0.0-1.0); MONOCYTES % (AUTO) 8 % (0-12); NEUTROPHILS % (AUTO) 48 % (42-75); PLATELET COUNT 254 10^3/uL (130-400); WHITE BLOOD COUNT 6.3 10^3/uL (4.3-11.0)
--- NOTE | 2021-05-21 06:11 | PM&R Progress Note ---
Subjective HPI/CC On Admission Date Seen by Provider: May 21, 2021 Time Seen by Provider: 09:30 Subjective/Events-last exam 05/21/2021: Pt doing really well No bowels moving for a couple of days so will work on that No other issues 05/20/2021: Patient doing very well Moving left hand Using OT techniques for left hand weakness Moving around well 05/19/2021: Patient doing really well Bowels moved yesterday Restarted his home supplements of vitamins 05/18/2021: Pt doing really well Pleased with his progress Moving his hand much more today Doing very well 05/17/2021: Pt doing very well No major changes Bowels moved yesterday Pleased with his progress 05/16/2021: Pt doing really well Gripping his left hand Overall feels like he is improving No pain is reported Slept well Missed note inadvertently late entry 05/15/2021: Pt slept really well last night Bowels moved a couple of days ago No pain is reported Doing very well with a fabiano-cane 05/14/2021: Pt doing really well Potassium 3.4 Bowels moving Feels like he is not doing well but he is 05/13/21: Slept a bit better No dizziness after getting up this morning Somatic complaints Very slow recovery mentally from CVA 05/12/21: Patient doing well Not sleeping too well at times No falls Walking well Voiding well 05/11/2021: Patient feels pretty good Slept very well last night No change in medication Patient doing pretty well 05/10/2021: Pt doing really well He didnt sleep again well last night so will initiated Melatonin 6 mg and Remeron of 15 Dr. Valencia will see him PRN now Changed bed to make it more comfortable Bowels moved today 05/09/2021: Patient progressing well Bowels moved last night Vision is better in the right eye Somatic complaints 05/08/2021: Pt walking with a cane and a gait belt Left side neglect is noted Vision is improved Barium swallow will need to be done on the Pt as an outpatient Fish oil will be changed to bunny red per his home dose 05/07/2021: Pt doing pretty well but having things stuck in his throat He has had multiple EGDs and stretching before so will have Dr. Umana see him Multiple somatic complaints 05/06/2021: Patient doing really well today Bowels moved today Eating a bit more We will have speech therapy change diet 05/05/2021: Patient doing really well Seems to have little confidence Discontinue Carafate due to side effects Incision looks good on the right carotid Voiding well Bowels are moving 05/04/2021: Pt doing pretty well Walked in the halls Bowels moving a little bit now Urination doing pretty well 05/03/2021: Pt doing pretty well Cystoscope done and now voiding well DC Bactrim since he is having difficulty swallowing GERD issues continue Proton pump inhibitor and Carafate maintained Will have a suppository if bowels have not moved later 05/02/2021: Pt doing pretty well Became tearful a bit today No BM since 04/27 so laxatives given Nausea a bit last night Dr. Valencia saw him and will perform a cystoscopy tomorrow Dysphasia noted Left arm is tingling so hopefully we will regain some function Review of Systems General: Fatigue, Malaise Objective Exam Vital Signs Vital Signs Date Time Temp Pulse Resp B/P (MAP) Pulse Ox O2 Delivery O2 Flow Rate FiO2 05/21/21 21:00 Room Air 05/21/21 20:00 37.0 73 16 105/66 (79) 97 Capillary Refill : General Appearance: No Apparent Distress, WD/WN, Chronically ill HEENT: PERRL/EOMI, Normal ENT Inspection, Pharynx Normal Neck: Full Range of Motion, Normal Inspection, Non Tender, Supple, Carotid Bruit Respiratory: Chest Non Tender, Lungs Clear, Normal Breath Sounds, No Accessory Muscle Use, No Respiratory Distress Cardiovascular: Regular Rate, Rhythm, Normal Peripheral Pulses Gastrointestinal: Normal Bowel Sounds, No Organomegaly, No Pulsatile Mass, Non Tender, Soft Back: Normal Inspection, No CVA Tenderness, No Vertebral Tenderness Extremity: Normal Capillary Refill, Non Tender, No Calf Tenderness, No Pedal Edema Neurologic/Psychiatric: Alert, Oriented x3, Normal Mood/Affect, Motor Weakness (Left-sided weakness upper and lower extremities) Skin: Normal Color, Warm/Dry Lymphatic: No Adenopathy Results/Procedures Lab Laboratory Tests 05/21/21 05:18 Patient resulted labs reviewed. FIM Transfers Therapy Code Descriptions/Definitions Functional [place] Measure: 0=Not Assessed/NA 4=Minimal Assistance 1=Total Assistance 5=Supervision or Setup 2=Maximal Assistance 6=Modified [place] 3=Moderate Assistance 7=Complete IndependenceSCALE: Activities may be completed with or without assistive devices. 2-Tsyfoqbdgj-jitynkl completes the activity by him/herself with no assistance from a helper. 5-Set-up or Clean-up Assistance-helper sets up or cleans up; patient completes activity. [place] assists only prior to or following the activity. 4-Supervision or Touching Assistance-helper provides verbal cues and/or touching/steadying and/or contact guard assistance as patient completes activity. Assistance may be provided throughout the activity or intermittently. 3-Partial/Moderate Assistance-helper does LESS THAN HALF the effort. [place] lifts, holds or supports trunk or limbs, but provides less than half the effort. 2-Substantial/Maximal Assistance-helper does MORE THAN HALF the effort. [place] lifts or holds trunk or limbs and provides more than half the effort. 2-Fnvaywsfu-cyckns does ALL the effort. Patient does none of the effort to complete the activity. Or, the assistance of 2 or more helpers is required for the patient to complete the activity. If activity was not attempted, code reason: 7-Patient Refused. 9-Not Applicable-not attempted and the patient did not perform the activity before the current illness, exacerbation or injury. 10-Not Attempted due to Environmental Limitations-(lack of equipment, weather restraints, etc.). 88-Not Attempted due to Medical Conditions or Safety Concerns. Roll Left to Right (QC): 3 Sit to Lying (QC): 3 Sit to Stand (QC): 3 Chair/Gua-id-Ireuv Xfer(QC): 4 Car Transfer (QC): 3 Gait Training Does the Patient Walk?: Yes Distance: 215ft Walk 10 feet (QC): 4 Walk 50 ft with 2 Turns(QC): 4 Walk 150 ft (QC): 4 Walking 10ft/uneven surface-QC: 88 Gait Persons Needed: 1 Gait Assistive Device: Cane Single Point Wheelchair Training Does the Pt Use a Wheelchair?: Yes Distance: 400' Wheel 50 ft with 2 turns (QC): 3 Wheel 150 ft (QC): 3 Type of Wheelchair: Manual Stair Training Stair Training: Handrails/: 1 handrail #of Steps: 4 1 Step (curb) (QC): 4 4 Steps (QC): 4 12 Steps (QC): 88 Stairs: Pattern: Step to Balance Picking up an Object (QC): 88 ADL-Treatment Eating (QC): 5 (Set up required then uses hands or regular utensils to eat.) Oral Hygiene (QC): 6 Bathing Location: L Arm, R Arm, L Upper Leg, R Upper Leg, L Lower Leg (including foot), R Lower Leg (including foot), Chest, Abdomen, Buttocks, Perineal Area Shower/Bathe Self (QC): 6 Upper Body Dressing (QC): 3 (mod A) Lower Body Dressing (QC): 3 (Min A to untangle shorts from toes while threading.) On/Off Footwear (QC): 3 (mod A) Toileting Hygiene (QC): 3 Toilet Transfer (QC): 4 Assessment/Plan Assessment and Plan Assess & Plan/Chief Complaint Assessment: S/P right carotid endarectomy 04-27-21 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 Umana Plan: Aggressive therapy Urology consult Monitor closely 05/02/2021: Appreciate urology Cystoscopy tomorrow Bowel regimen 05/03/2021: Status post cystoscopy Voiding well now DC Bactrim 05/04/2021: Much improved Moving around much better Monitor bowel function 05/05/2021: Supportive care Ambulating well 05/06/2021: Supportive care Monitor closely 05/07/2021: Dr. Umana appreciated Dysphagia management 05/08/2021: Monitor closely Dysphagia management 05/09/2021: Supportive care Dysphagia management Monitor closely 05/10/2021: Focus on insomnia tonight Monitor closely 05/11/2021: Supportive care Monitor closely 05/12/21: Monitor closely Monitor pain 05/13/21: Monitor dysphagia Fall risk 05/14/2021: Supportive care Build confidence 05/15/2021: Supportive care Monitor progress 05/16/2021: Dramatic improvement Progress with aggressive therapy 05/17/2021: Supportive care Much improved status 05/18/2021: Supportive care Much improved status with hand now 05/19/2021: Supportive care Monitor closely 05/20/2021: Patient much improved Left hand exercises 05/21/2021: Much improved status Discharge plan soon (1) CVA (cerebral vascular accident) GUILLERMO CABELLO DO May 21, 2021 06:11
[2021-05-21 06:12] LABS: ALBUMIN 3.2 GM/DL (3.2-4.5); POTASSIUM 3.9 MMOL/L (3.6-5.0)
[2021-05-21 06:13] LABS: CALCIUM 8.6 MG/DL (8.5-10.1)
[2021-05-21 06:14] LABS: TOTAL PROTEIN 6.1 GM/DL (6.4-8.2)
[2021-05-21 06:16] LABS: BILIRUBIN,TOTAL 0.4 MG/DL (0.1-1.0)
[2021-05-21 06:18] LABS: CREATININE SERUM 0.88 MG/DL (0.60-1.30)
[2021-05-21] MEDS: KCL 10 MEQ TAB (MICRO K) PO SCH (06:44)
[2021-05-21 07:56] VITALS: BP 131/68
[2021-05-21] MEDS: LACTOBACILLUS ACIDOPHILUS (PROBIOTIC) CAPSULE PO SCH (08:06)
[2021-05-21] MEDS: SENNA W/DOCUSATE (SENOKOT S) TABLET PO SCH ×2 (08:06→19:43)
[2021-05-21] MEDS: ASPIRIN E.C. 81 MG (ECOTRIN) TAB PO SCH (08:06)
[2021-05-21] MEDS: DOCUSATE SODIUM 100 MG (COLACE) CAP PO SCH ×2 (08:06→19:43)
[2021-05-21] MEDS: PANTOPRAZOLE 40 MG (PROTONIX) TAB PO SCH ×2 (08:07→20:52)
[2021-05-21] MEDS: CLOPIDOGREL 75 MG (PLAVIX) TABLET PO SCH (08:07)
[2021-05-21] MEDS: VITAMIN D3 125 MCG (5,000 UNITS) CAPSULE PO SCH (08:07)
[2021-05-21] MEDS: amLODIPine 5 MG (NORVASC) TAB PO SCH (08:07)
[2021-05-21] MEDS: MEGA RED PO SCH (08:07)
[2021-05-21] MEDS: polyethylene glycoL POWDER 17 GM (MIRALAX) PACK PO SCH ×2 (08:08→19:43)
--- NOTE | 2021-05-21 10:33 | Physical Therapy Daily Note ---
PT Daily Note-Current Subjective Pt laying Supine in bed upon arrival. Pt agrees to PT and is excited for d/c on (05/24). Pain Location: No Pain Reported Mental Status Patient Orientation: Person, Place, Time, Situation Transfers SCALE: Activities may be completed with or without assistive devices. 2-Ttodskdszx-lbzzmdr completes the activity by him/herself with no assistance from a helper. 5-Set-up or Clean-up Assistance-helper sets up or cleans up; patient completes activity. [place] assists only prior to or following the activity. 4-Supervision or Touching Assistance-helper provides verbal cues and/or touching/steadying and/or contact guard assistance as patient completes activity. Assistance may be provided throughout the activity or intermittently. 3-Partial/Moderate Assistance-helper does LESS THAN HALF the effort. [place] lifts, holds or supports trunk or limbs, but provides less than half the effort. 2-Substantial/Maximal Assistance-helper does MORE THAN HALF the effort. [place] lifts or holds trunk or limbs and provides more than half the effort. 4-Ywadfcjbv-qoupmu does ALL the effort. Patient does none of the effort to complete the activity. Or, the assistance of 2 or more helpers is required for the patient to complete the activity. If activity was not attempted, code reason: 7-Patient Refused. 9-Not Applicable-not attempted and the patient did not perform the activity before the current illness, exacerbation or injury. 10-Not Attempted due to Environmental Limitations-(lack of equipment, weather restraints, etc.). 88-Not Attempted due to Medical Conditions or Safety Concerns. Sit to Stand (QC): 5 Toilet Transfer (QC): 5 Weight Bearing Full Weight Bearing Full Weight Bearing Gait Training Does the Patient Walk?: Yes Distance: 125', 150', 200' Walk 10 feet (QC): 4 Walk 50 ft with 2 Turns(QC): 4 Walk 150 ft (QC): 4 Gait Persons Needed: 1 Gait Assistive Device: Cane Single Point CGA for occasional sessions of misstepping but pt able to self correct. Wheelchair Training Does the Pt Use a Wheelchair?: No Exercises Standing: Hip Abduction, Hamstring curls, Marching, Mini squats, Weight shifts Standing Reps: 15 NuStep Minutes: 16 NuStep Workload: 4 Treatments TF to standing and uses BR. Pt amb. in hallway. Pt uses NuStep then takes short RB. Pt completes Standing Ex at //bars. Pt takes several RB during EX and after. Pt amb. in hallway then returns to room to rest Supine in bed. All needs met, call light in hand. Assessment Current Status: Good Progress Pt needs rest breaks during amb. PT Short Term Goals Short Term Goals Time Frame: May 08, 2021 Roll Left & Right: 4 Sit to lyin (Cynthia) Lying to sitting on side of be: 3 (Cynthia) Sit to stand: 3 (Cynthia) Chair/uza-pa-sctkh transfer: 3 (Cynthia) Walk 10 feet: 3 (Cynthia) Walk 50 feet with two turns: 3 (Cynthia) PT Die Cutter Operator Goals Die Cutter Operator Goals PT Half-Way Goals Time Frame: May 22, 2021 Roll Left & Right (QC): 6 Sit to Lying (QC): 4 (SBA) Lying-Sitting on Side/Bed(QC): 4 (SBA) Sit to Stand (QC): 4 (SBA) Chair/Rgb-rz-Yxlua Xfer(QC): 4 (SBA) Toilet Transfer (QC): 4 (SBA) Car Transfer (QC): 4 (SBA) Does the Patient Walk: Yes Walk 10 feet (QC): 4 (CGA) Walk 50ft with 2 Turns (QC): 4 (CGA) Walk 150 ft (QC): 88 Walking 10ft on Uneven Surface: 4 (CGA) 1 Step (curb) (QC): 4 (CGA) 4 Steps (QC): 4 (CGA) 12 Steps (QC): 88 Picking up an Object (QC): 88 Wheel 50 feet with 2 turns (QC: 5 Wheel 150 feet: 5 PT Plan Problem List Problem List: Activity Tolerance, Gait Treatment/Plan Treatment Plan: Continue Plan of Care Treatment Plan: Bed Mobility, Education, Functional Activity Jose Carlos, Functional Strength, Group Therapy, Gait, Safety, Therapeutic Exercise, Transfers Treatment Duration: May 22, 2021 Frequency: At least 5 of 7 days/Wk (IRF) Estimated Hrs Per Day: 1.5 hours per day Patient and/or Family Agrees t: Yes Safety Risks/Education Patient Education: Gait Training, Correct Positioning, Safety Issues Teaching Recipient: Patient Teaching Methods: Discussion Response to Teaching: Verbalize Understanding Time/GCodes Time In: 800 Time Out: 930 Total Billed Treatment Time: 90 Total Billed Treatment 1, GT x2 (30m), EX x 3 (45m) & FA (15m) TAYLA KERNS TIRE BUILDING SUPERVISOR May 21, 2021 10:33
--- NOTE | 2021-05-21 12:07 | Occupational Ther Daily Note ---
OT Current Status-Daily Note Subjective Pt. dozing in bed, alert easily. Pt. agrees to therapy. Mental Status/Objective Patient Orientation: Person, Place, Time, Situation ADL-Treatment Pt. agrees to shower. Pt. SBA transition from supine to sitting EOB. Pt. CGA during ambulation with cane from bed to armed chair in bathroom. Pt. performed oral care independently sitting at sink. Pt. CGA to walk to toilet, used grabbars to stand and doff shorts CGA, sitting on toilet pt completes hygiene by self. Pt. CGA ambulation across bathroom to shower bench. Pt. cleansed self independently seated on shower bench with safety concerns due to initiating problem solving when frustrated. Pt. Mod A. donning t-shirt, requiring verbal cues and assist to thread L UE. Pt. Mod A donning shorts seated on armed chair i n bathroom, requiring verbal cues and assist to thread L LE. Pt. educated placing sock on sock aid techniques, Mod. A requiring verbal and assist to complete, Pt. can don socks once on sock aid. Pt. donned shoes Mod A, L shoe heel breaking down pt. required assistance placing equipment to keep heel from scrunching down. Therapy Code Descriptions/Definitions Functional [place] Measure: 0=Not Assessed/NA 4=Minimal Assistance 1=Total Assistance 5=Supervision or Setup 2=Maximal Assistance 6=Modified [place] 3=Moderate Assistance 7=Complete IndependenceSCALE: Activities may be completed with or without assistive devices. 4-Crzpovwkre-ihvnkjg completes the activity by him/herself with no assistance from a helper. 5-Set-up or Clean-up Assistance-helper sets up or cleans up; patient completes activity. [place] assists only prior to or following the activity. 4-Supervision or Touching Assistance-helper provides verbal cues and/or touching/steadying and/or contact guard assistance as patient completes activity. Assistance may be provided throughout the activity or intermittently. 3-Partial/Moderate Assistance-helper does LESS THAN HALF the effort. [place] lifts, holds or supports trunk or limbs, but provides less than half the effort. 2-Substantial/Maximal Assistance-helper does MORE THAN HALF the effort. [place] lifts or holds trunk or limbs and provides more than half the effort. 4-Muxzmrgig-wfdmvg does ALL the effort. Patient does none of the effort to complete the activity. Or, the assistance of 2 or more helpers is required for the patient to complete the activity. If activity was not attempted, code reason: 7-Patient Refused. 9-Not Applicable-not attempted and the patient did not perform the activity before the current illness, exacerbation or injury. 10-Not Attempted due to Environmental Limitations-(lack of equipment, weather restraints, etc.). 88-Not Attempted due to Medical Conditions or Safety Concerns. Oral Hygiene (QC): 6 Bathing Location: L Arm, R Arm, L Upper Leg, R Upper Leg, L Lower Leg (including foot), R Lower Leg (including foot), Chest, Abdomen, Buttocks, Perineal Area Shower/Bathe Self (QC): 6 Upper Body Dressing (QC): 3 (Mod A) Lower Body Dressing (QC): 3 (Mod A) Toileting Hygiene (QC): 4 (SBA while pt. stabalized self with grabbar.) Toilet Transfer (QC): 4 (CGA) Other Treatment Pt. CGA to ambulate using SPC from room to therapy gym. Pt. completed B UE and focused on L UE tasks to increase strength and AROM for daily tasks. Pt. completed arm bike for 8 minutes, 2 minute and 15 seconds Pt. independently grasped the handle bar until L UE fatigued, then wrapped with elias bandage to maintain proper alignment/lead ramp agent. Pt. gripped 5 colored cones with L UE moving to opposite side of table, then back. Pt. used L UE to lead ramp agent beanbags (7) off table top and place them one at a time in basket on L side of body. Pt picked 7 hickman bags up off the floor and placed them in basket on L side at hip height. After therapy, pt lying in bed with call light/phone in reach. All needs met in room. Education Teaching Recipient: Patient Teaching Methods: Demonstration, Discussion Response to Teaching: Verbalize Understanding, Return Demonstration, Reinforcement Needed OT Short Term Goals Short Term Goals Time Frame: May 11, 2021 Shower/bathe self: 3 Upper body dressin Lower body dressin Putting on/taking off footwear: 3 OT Long-Term Goals Software Engineering Supervisor Goals Time Frame: Jun 01, 2021 Eating (QC): 5 Oral Hygiene (QC): 5 Toileting Hygiene (QC): 4 Shower/Bathe Self (QC): 4 Upper Body Dressing (QC): 5 Lower Body Dressing (QC): 4 On/Off Footwear (QC): 4 Additional Goals: 1-Demonstrate ADL Tasks, 2-Verbalize Understanding, 3- ImproveStrength/Jose Carlos 1=Demonstrate adherence to instructed precautions during ADL tasks. 2=Patient will verbalize/demonstrate understanding of assistive devices/modifications for ADL. 3=Patient will improve strength/tolerance for activity to enable patient to perform ADL's. OT Education/Plan Problem List/Assessment Assessment: Decreased Activ Tolerance, Decreased Safety Aware, Decreased UE Strength, Impaired Coordination, Impaired Self-Care Skills, Restricted Funct UE ROM, Visual-Perceptual Deficit Discharge Recommendations Plan/Recommendations: Continue POC Treatment Plan/Plan of Care Patient would benefit from OT for education, treatment and training to promote independence in ADL's, mobility, safety and/or upper extremity function for ADL's. Plan of Care: ADL Retraining, Functional Mobility, Group Exercise/Act as Ind, UE Funct Exercise/Act Treatment Duration: Jun 01, 2021 Frequency: 2 times per week Estimated Hrs Per Day: 1.5 hours per day Agreement: Yes Rehab Potential: Fair Time/GCodes Start Time: 10:30 Stop Time: 12:00 Total Time Billed (hr/min): 90 Billed Treatment Time 1 visit- ADL 4(60 min), NM 1 (20 min), Ex 1 (10 min) AAKASH HODGES May 21, 2021 12:07
[2021-05-21] MEDS: TAMSULOSIN 0.4 MG (FLOMAX) CAP PO SCH (17:20)
[2021-05-21 20:00] VITALS: BP 105/66
[2021-05-21] MEDS: MELATONIN 3 MG TABLET PO SCH (20:52)
[2021-05-21] MEDS: MIRTAZAPINE 15 MG (REMERON) TAB PO SCH (20:52)
[2021-05-22] MEDS: KCL 10 MEQ TAB (MICRO K) PO SCH (06:29)
[2021-05-22 07:42] VITALS: BP 109/53
[2021-05-22] MEDS: VITAMIN D3 125 MCG (5,000 UNITS) CAPSULE PO SCH (08:07)
[2021-05-22] MEDS: CLOPIDOGREL 75 MG (PLAVIX) TABLET PO SCH (08:07)
[2021-05-22] MEDS: LACTOBACILLUS ACIDOPHILUS (PROBIOTIC) CAPSULE PO SCH (08:07)
[2021-05-22] MEDS: PANTOPRAZOLE 40 MG (PROTONIX) TAB PO SCH ×2 (08:07→20:56)
[2021-05-22] MEDS: amLODIPine 5 MG (NORVASC) TAB PO SCH (08:07)
[2021-05-22] MEDS: ASPIRIN E.C. 81 MG (ECOTRIN) TAB PO SCH (08:07)
[2021-05-22] MEDS: MEGA RED PO SCH (08:08)
[2021-05-22] MEDS: SENNA W/DOCUSATE (SENOKOT S) TABLET PO SCH ×2 (08:09→21:03)
[2021-05-22] MEDS: DOCUSATE SODIUM 100 MG (COLACE) CAP PO SCH ×2 (08:09→21:03)
[2021-05-22] MEDS: polyethylene glycoL POWDER 17 GM (MIRALAX) PACK PO SCH ×2 (08:09→21:03)
--- NOTE | 2021-05-22 08:47 | PM&R Progress Note ---
Subjective HPI/CC On Admission Date Seen by Provider: May 22, 2021 Time Seen by Provider: 09:00 Subjective/Events-last exam 05/23/2021: Pt doing really well Worried about scalp lesion and it appears to be an abrasion and will monitor that but it may need to be biopsied Feels good otherwise DC is planned for 05/21/2021: Pt doing really well No bowels moving for a couple of days so will work on that No other issues 05/20/2021: Patient doing very well Moving left hand Using OT techniques for left hand weakness Moving around well 05/19/2021: Patient doing really well Bowels moved yesterday Restarted his home supplements of vitamins 05/18/2021: Pt doing really well Pleased with his progress Moving his hand much more today Doing very well 05/17/2021: Pt doing very well No major changes Bowels moved yesterday Pleased with his progress 05/16/2021: Pt doing really well Gripping his left hand Overall feels like he is improving No pain is reported Slept well Missed note inadvertently late entry 05/15/2021: Pt slept really well last night Bowels moved a couple of days ago No pain is reported Doing very well with a juan jose-cane 05/14/2021: Pt doing really well Potassium 3.4 Bowels moving Feels like he is not doing well but he is 05/13/21: Slept a bit better No dizziness after getting up this morning Somatic complaints Very slow recovery mentally from CVA 05/12/21: Patient doing well Not sleeping too well at times No falls Walking well Voiding well 05/11/2021: Patient feels pretty good Slept very well last night No change in medication Patient doing pretty well 05/10/2021: Pt doing really well He didnt sleep again well last night so will initiated Melatonin 6 mg and Remeron of 15 Dr. Valencia will see him PRN now Changed bed to make it more comfortable Bowels moved today 05/09/2021: Patient progressing well Bowels moved last night Vision is better in the right eye Somatic complaints 05/08/2021: Pt walking with a cane and a gait belt Left side neglect is noted Vision is improved Barium swallow will need to be done on the Pt as an outpatient Fish oil will be changed to bunny red per his home dose 05/07/2021: Pt doing pretty well but having things stuck in his throat He has had multiple EGDs and stretching before so will have Dr. Umana see him Multiple somatic complaints 05/06/2021: Patient doing really well today Bowels moved today Eating a bit more We will have speech therapy change diet 05/05/2021: Patient doing really well Seems to have little confidence Discontinue Carafate due to side effects Incision looks good on the right carotid Voiding well Bowels are moving 05/04/2021: Pt doing pretty well Walked in the halls Bowels moving a little bit now Urination doing pretty well 05/03/2021: Pt doing pretty well Cystoscope done and now voiding well DC Bactrim since he is having difficulty swallowing GERD issues continue Proton pump inhibitor and Carafate maintained Will have a suppository if bowels have not moved later 05/02/2021: Pt doing pretty well Became tearful a bit today No BM since 04/27 so laxatives given Nausea a bit last night Dr. Valencia saw him and will perform a cystoscopy tomorrow Dysphasia noted Left arm is tingling so hopefully we will regain some function Review of Systems Neurological: Weakness, Incoordination Objective Exam Vital Signs Vital Signs Date Time Temp Pulse Resp B/P (MAP) Pulse Ox O2 Delivery O2 Flow Rate FiO2 05/22/21 20:58 95 Room Air 05/22/21 20:00 37.2 80 16 131/64 (86) Capillary Refill : General Appearance: No Apparent Distress, WD/WN, Chronically ill HEENT: PERRL/EOMI, Normal ENT Inspection, Pharynx Normal Neck: Full Range of Motion, Normal Inspection, Non Tender, Supple, Carotid Bruit Respiratory: Chest Non Tender, Lungs Clear, Normal Breath Sounds, No Accessory Muscle Use, No Respiratory Distress Cardiovascular: Regular Rate, Rhythm, Normal Peripheral Pulses Gastrointestinal: Normal Bowel Sounds, No Organomegaly, No Pulsatile Mass, Non Tender, Soft Back: Normal Inspection, No CVA Tenderness, No Vertebral Tenderness Extremity: Normal Capillary Refill, Non Tender, No Calf Tenderness, No Pedal Edema Neurologic/Psychiatric: Alert, Oriented x3, Normal Mood/Affect, Motor Weakness (Left-sided weakness upper and lower extremities) Skin: Normal Color, Warm/Dry Lymphatic: No Adenopathy Results/Procedures Lab Patient resulted labs reviewed. FIM Transfers Therapy Code Descriptions/Definitions Functional [place] Measure: 0=Not Assessed/NA 4=Minimal Assistance 1=Total Assistance 5=Supervision or Setup 2=Maximal Assistance 6=Modified [place] 3=Moderate Assistance 7=Complete IndependenceSCALE: Activities may be completed with or without assistive devices. 6-Gyfbqpepiz-fixiqdk completes the activity by him/herself with no assistance from a helper. 5-Set-up or Clean-up Assistance-helper sets up or cleans up; patient completes activity. [place] assists only prior to or following the activity. 4-Supervision or Touching Assistance-helper provides verbal cues and/or touching/steadying and/or contact guard assistance as patient completes activity. Assistance may be provided throughout the activity or intermittently. 3-Partial/Moderate Assistance-helper does LESS THAN HALF the effort. [place] lifts, holds or supports trunk or limbs, but provides less than half the effort. 2-Substantial/Maximal Assistance-helper does MORE THAN HALF the effort. [place] lifts or holds trunk or limbs and provides more than half the effort. 4-Bofeujmen-nupfqs does ALL the effort. Patient does none of the effort to complete the activity. Or, the assistance of 2 or more helpers is required for the patient to complete the activity. If activity was not attempted, code reason: 7-Patient Refused. 9-Not Applicable-not attempted and the patient did not perform the activity before the current illness, exacerbation or injury. 10-Not Attempted due to Environmental Limitations-(lack of equipment, weather restraints, etc.). 88-Not Attempted due to Medical Conditions or Safety Concerns. Roll Left to Right (QC): 3 Sit to Lying (QC): 3 Sit to Stand (QC): 3 Chair/Yhi-lt-Lrgla Xfer(QC): 3 Car Transfer (QC): 3 Gait Training Does the Patient Walk?: Yes Distance: 75' Walk 10 feet (QC): 3 Walk 50 ft with 2 Turns(QC): 3 Walk 150 ft (QC): 4 Walking 10ft/uneven surface-QC: 88 Gait Persons Needed: 1 Gait Assistive Device: Walker Juan Jose Wheelchair Training Does the Pt Use a Wheelchair?: No Distance: 400' Wheel 50 ft with 2 turns (QC): 4 Wheel 150 ft (QC): 3 Type of Wheelchair: Manual Stair Training Stair Training: Handrails/: 1 handrail #of Steps: 4 1 Step (curb) (QC): 4 4 Steps (QC): 4 12 Steps (QC): 88 Stairs: Pattern: Step to Balance Picking up an Object (QC): 88 ADL-Treatment Eating (QC): 5 (Set up required then uses hands or regular utensils to eat.) Oral Hygiene (QC): 6 Bathing Location: L Arm, R Arm, L Upper Leg, R Upper Leg, L Lower Leg (including foot), R Lower Leg (including foot), Chest, Abdomen, Buttocks, Perineal Area Shower/Bathe Self (QC): 6 Upper Body Dressing (QC): 3 (Mod A) Lower Body Dressing (QC): 3 (Mod A) On/Off Footwear (QC): 3 (mod A) Toileting Hygiene (QC): 4 (SBA while pt. 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 Umana Plan: Aggressive therapy Urology consult Monitor closely 05/02/2021: Appreciate urology Cystoscopy tomorrow Bowel regimen 05/03/2021: Status post cystoscopy Voiding well now DC Bactrim 05/04/2021: Much improved Moving around much better Monitor bowel function 05/05/2021: Supportive care Ambulating well 05/06/2021: Supportive care Monitor closely 05/07/2021: Dr. Umana appreciated Dysphagia management 05/08/2021: Monitor closely Dysphagia management 05/09/2021: Supportive care Dysphagia management Monitor closely 05/10/2021: Focus on insomnia tonight Monitor closely 05/11/2021: Supportive care Monitor closely 05/12/21: Monitor closely Monitor pain 05/13/21: Monitor dysphagia Fall risk 05/14/2021: Supportive care Build confidence 05/15/2021: Supportive care Monitor progress 05/16/2021: Dramatic improvement Progress with aggressive therapy 05/17/2021: Supportive care Much improved status 05/18/2021: Supportive care Much improved status with hand now 05/19/2021: Supportive care Monitor closely 05/20/2021: Patient much improved Left hand exercises 05/21/2021: Much improved status Discharge plan soon 05/22/2021: Supportive care Monitor closely We will follow up on right scalp lesion as an outpatient (1) CVA (cerebral vascular accident) GUILLERMO CABELLO DO May 22, 2021 08:47
--- NOTE | 2021-05-22 10:37 | Physical Therapy Daily Note ---
PT Daily Note-Current Subjective Pt R sidelying in bed upon arrival. Nurse gives morning meds. Pt agrees to PT. Pain Location: No Pain Reported Mental Status Patient Orientation: Person, Place, Time, Situation Transfers SCALE: Activities may be completed with or without assistive devices. 3-Wqcagdzgla-kbsfdnb completes the activity by him/herself with no assistance from a helper. 5-Set-up or Clean-up Assistance-helper sets up or cleans up; patient completes activity. [place] assists only prior to or following the activity. 4-Supervision or Touching Assistance-helper provides verbal cues and/or touching/steadying and/or contact guard assistance as patient completes activity. Assistance may be provided throughout the activity or intermittently. 3-Partial/Moderate Assistance-helper does LESS THAN HALF the effort. [place] lifts, holds or supports trunk or limbs, but provides less than half the effort. 2-Substantial/Maximal Assistance-helper does MORE THAN HALF the effort. [place] lifts or holds trunk or limbs and provides more than half the effort. 4-Khnqdxbjt-hstdhl does ALL the effort. Patient does none of the effort to complete the activity. Or, the assistance of 2 or more helpers is required for the patient to complete the activity. If activity was not attempted, code reason: 7-Patient Refused. 9-Not Applicable-not attempted and the patient did not perform the activity before the current illness, exacerbation or injury. 10-Not Attempted due to Environmental Limitations-(lack of equipment, weather restraints, etc.). 88-Not Attempted due to Medical Conditions or Safety Concerns. Sit to Stand (QC): 5 Weight Bearing Full Weight Bearing Full Weight Bearing Gait Training Does the Patient Walk?: Yes Distance: 500' Walk 10 feet (QC): 5 Walk 50 ft with 2 Turns(QC): 5 Walk 150 ft (QC): 5 Walking 10ft/uneven surface-QC: 5 Gait Persons Needed: 1 Gait Assistive Device: Cane Single Point INSURANCE WRITER stays close but pt is able to self correct as needed. VC to slow down for better body control. Doorways or if walkway is more cluttered, pt had difficulty preventing himself fro running into items on L side. Wheelchair Training Does the Pt Use a Wheelchair?: Yes Wheel 50 ft with 2 turns (QC): 6 Wheel 150 ft (QC): 6 Type of Wheelchair: Manual Stair Training Stair Training: Handrails/: 2 handrails #of Steps: 8 1 Step (curb) (QC): 5 4 Steps (QC): 4 Treatments TF to EOB and takes morning meds. Pt completes sit to stand then amb. in [place] llway. Pt completes 1 set of stairs then rests. Pt completes Seated EX then amb. in hallway. Pt rests in [facility] as extended amb. fatigues pt. Pt leaves unit to work on varying surface per pt request. Pt is able to amb. uneven surface, stairs and ramp. Pt returns to [facility] for energy conservation. Pt returns to ARU and then room to rest. Pt resting in bed with all needs met, call light in hand. Assessment Current Status: Good Progress Pt continues to push self and has seen gains in transfers and ambulation independence. PT Short Term Goals Short Term Goals Time Frame: May 08, 2021 Roll Left & Right: 4 Sit to lyin (Cynthia) Lying to sitting on side of be: 3 (Cynthia) Sit to stand: 3 (Cynthia) Chair/bpa-yj-nbedv transfer: 3 (Cynthia) Walk 10 feet: 3 (Cynthia) Walk 50 feet with two turns: 3 (Cynthia) PT Skilled Nursing Goals Skilled Nursing Goals PT Hand Roller Goals Time Frame: May 22, 2021 Roll Left & Right (QC): 6 Sit to Lying (QC): 4 (SBA) Lying-Sitting on Side/Bed(QC): 4 (SBA) Sit to Stand (QC): 4 (SBA) Chair/Xjg-yh-Ldizb Xfer(QC): 4 (SBA) Toilet Transfer (QC): 4 (SBA) Car Transfer (QC): 4 (SBA) Does the Patient Walk: Yes Walk 10 feet (QC): 4 (CGA) Walk 50ft with 2 Turns (QC): 4 (CGA) Walk 150 ft (QC): 88 Walking 10ft on Uneven Surface: 4 (CGA) 1 Step (curb) (QC): 4 (CGA) 4 Steps (QC): 4 (CGA) 12 Steps (QC): 88 Picking up an Object (QC): 88 Wheel 50 feet with 2 turns (QC: 5 Wheel 150 feet: 5 PT Plan Problem List Problem List: Activity Tolerance, Gait Treatment/Plan Treatment Plan: Continue Plan of Care Treatment Plan: Bed Mobility, Education, Functional Activity Jose Carlos, Functional Strength, Group Therapy, Gait, Safety, Therapeutic Exercise, Transfers Treatment Duration: May 22, 2021 Frequency: At least 5 of 7 days/Wk (IRF) Estimated Hrs Per Day: 1.5 hours per day Patient and/or Family Agrees t: Yes Safety Risks/Education Patient Education: Gait Training, Safety Issues Teaching Recipient: Patient Teaching Methods: Discussion Response to Teaching: Verbalize Understanding Time/GCodes Time In: 800 Time Out: 930 Total Billed Treatment Time: 90 Total Billed Treatment 1,GT x3 (40m), EX (15m) & FA x2 (35m) TAYLA KERNS INSURANCE WRITER May 22, 2021 10:37
--- NOTE | 2021-05-22 12:06 | Occupational Ther Daily Note ---
OT Current Status-Daily Note Subjective Pt. resting in bed, easy to wake. No c/o pain, Pt. agrees to therapy. Mental Status/Objective Patient Orientation: Person, Place, Time, Situation ADL-Treatment Pt. moved supine to sit EOB independently. Pt. attempted to don socks EOB, but CGA for balance, transfer to recliner to have better sitting support. Pt. set up to don R/L sock using a one handed technique and was successful. Pt. ambulated CGA for balance concerns to toilet. Pt. CGA while holding onto grab bar with L hand to doff shorts from hips with R hand. Pt. CGA to stand at toilet holding grab bars to hike shorts up over hips. Pt. CGA for steadiness, ambulated to armed chair sat at sink to perform oral care using one handed techniques independently. Therapy Code Descriptions/Definitions Functional [place] Measure: 0=Not Assessed/NA 4=Minimal Assistance 1=Total Assistance 5=Supervision or Setup 2=Maximal Assistance 6=Modified [place] 3=Moderate Assistance 7=Complete IndependenceSCALE: Activities may be completed with or without assistive devices. 8-Gpqberofnn-sbjvccm completes the activity by him/herself with no assistance from a helper. 5-Set-up or Clean-up Assistance-helper sets up or cleans up; patient completes activity. [place] assists only prior to or following the activity. 4-Supervision or Touching Assistance-helper provides verbal cues and/or touching/steadying and/or contact guard assistance as patient completes activity. Assistance may be provided throughout the activity or intermittently. 3-Partial/Moderate Assistance-helper does LESS THAN HALF the effort. [place] lifts, holds or supports trunk or limbs, but provides less than half the effort. 2-Substantial/Maximal Assistance-helper does MORE THAN HALF the effort. [place] lifts or holds trunk or limbs and provides more than half the effort. 7-Bsnpfvqmc-ijuxab does ALL the effort. Patient does none of the effort to complete the activity. Or, the assistance of 2 or more helpers is required for the patient to complete the activity. If activity was not attempted, code reason: 7-Patient Refused. 9-Not Applicable-not attempted and the patient did not perform the activity before the current illness, exacerbation or injury. 10-Not Attempted due to Environmental Limitations-(lack of equipment, weather restraints, etc.). 88-Not Attempted due to Medical Conditions or Safety Concerns. Other Treatment Pt. CGA to ambulate with SPC to [facility] practicing kitchen navigation. Pt. was advised to use the counter top to stabilize and side stepping back/forth around kitchen set up. Pt. found strategically placed cones throughout kitchen. Pt. ambulated to gym CGA for balance. Pt. moved 5 cones using L UE community director/release 2x's in a armed chair. Pt. removed clothes pins with R hand, handed clothes pin to L hand and set pin on L side of box. Pt. replaced clothes pins on hanging dowels by scanning to the left, retrieving with L hand and placing it in R hand and putting clothes pin back on dowel. Pt. grasped ring toss rings in R hand, placing them on designated peg stabilized vertically on table 2x's.Pt. moved 16 rings from one side of the ROM arc to the other. Pt. ambulated back to room CGA for balance. Pt. tired and requested to lay down. Pt. left in bed, call light/phone in reach. All needs met in room. Education Teaching Methods: Demonstration, Discussion Response to Teaching: Verbalize Understanding, Return Demonstration OT Short Term Goals Short Term Goals Time Frame: May 11, 2021 Shower/bathe self: 3 Upper body dressin Lower body dressin Putting on/taking off footwear: 3 OT Intermediate Goals Customer Sales Advisor Goals Time Frame: Jun 01, 2021 Eating (QC): 5 Oral Hygiene (QC): 5 Toileting Hygiene (QC): 4 Shower/Bathe Self (QC): 4 Upper Body Dressing (QC): 5 Lower Body Dressing (QC): 4 On/Off Footwear (QC): 4 Additional Goals: 1-Demonstrate ADL Tasks, 2-Verbalize Understanding, 3- ImproveStrength/Jose Carlos 1=Demonstrate adherence to instructed precautions during ADL tasks. 2=Patient will verbalize/demonstrate understanding of assistive devices/modifications for ADL. 3=Patient will improve strength/tolerance for activity to enable patient to perform ADL's. OT Education/Plan Problem List/Assessment Assessment: Decreased Activ Tolerance, Decreased Safety Aware, Decreased UE Strength, Impaired Coordination, Impaired Funct Balance, Impaired Self-Care Skills, Restricted Funct UE ROM, Visual-Perceptual Deficit Discharge Recommendations Plan/Recommendations: Continue POC Treatment Plan/Plan of Care Patient would benefit from OT for education, treatment and training to promote independence in ADL's, mobility, safety and/or upper extremity function for ADL's. Plan of Care: ADL Retraining, Functional Mobility, Group Exercise/Act as Ind, UE Funct Exercise/Act Treatment Duration: Jun 01, 2021 Frequency: 2 times per week Estimated Hrs Per Day: 1.5 hours per day Agreement: Yes Rehab Potential: Fair Time/GCodes Start Time: 10:30 Stop Time: 12:00 Total Time Billed (hr/min): 90 Billed Treatment Time 1 visit- ADL 3 (45 min), NM 2 (30 min), FA 1 (15 min) AAKASH HODGES May 22, 2021 12:06
[2021-05-22] MEDS: TAMSULOSIN 0.4 MG (FLOMAX) CAP PO SCH (17:30)
[2021-05-22 20:00] VITALS: BP 131/64
[2021-05-22] MEDS: MELATONIN 3 MG TABLET PO SCH (20:56)
[2021-05-22] MEDS: ACETAMINOPHEN 325 MG TABLET PO PRN (20:57)
[2021-05-22] MEDS: MIRTAZAPINE 15 MG (REMERON) TAB PO SCH (20:57)
[2021-05-23] MEDS: KCL 10 MEQ TAB (MICRO K) PO SCH (06:45)
[2021-05-23 07:45] VITALS: BP 123/57
[2021-05-23] MEDS: ASPIRIN E.C. 81 MG (ECOTRIN) TAB PO SCH (08:08)
[2021-05-23] MEDS: CLOPIDOGREL 75 MG (PLAVIX) TABLET PO SCH (08:08)
[2021-05-23] MEDS: PANTOPRAZOLE 40 MG (PROTONIX) TAB PO SCH ×2 (08:08→20:33)
[2021-05-23] MEDS: LACTOBACILLUS ACIDOPHILUS (PROBIOTIC) CAPSULE PO SCH (08:08)
[2021-05-23] MEDS: VITAMIN D3 125 MCG (5,000 UNITS) CAPSULE PO SCH (08:08)
[2021-05-23] MEDS: amLODIPine 5 MG (NORVASC) TAB PO SCH (08:08)
[2021-05-23] MEDS: MEGA RED PO SCH (08:09)
[2021-05-23] MEDS: DOCUSATE SODIUM 100 MG (COLACE) CAP PO SCH ×2 (09:19→20:35)
[2021-05-23] MEDS: polyethylene glycoL POWDER 17 GM (MIRALAX) PACK PO SCH ×2 (09:19→20:35)
[2021-05-23] MEDS: SENNA W/DOCUSATE (SENOKOT S) TABLET PO SCH ×2 (09:20→20:35)
--- NOTE | 2021-05-23 10:00 | Physical Therapy Daily Note ---
PT Daily Note-Current Subjective Pt laying Supine in bed upon arrival. Pt agrees to PT. Pain Location: No Pain Reported Mental Status Patient Orientation: Person, Place, Time, Situation Transfers SCALE: Activities may be completed with or without assistive devices. 0-Gduprigoie-wrkrvle completes the activity by him/herself with no assistance from a helper. 5-Set-up or Clean-up Assistance-helper sets up or cleans up; patient completes activity. [place] assists only prior to or following the activity. 4-Supervision or Touching Assistance-helper provides verbal cues and/or touching/steadying and/or contact guard assistance as patient completes activity. Assistance may be provided throughout the activity or intermittently. 3-Partial/Moderate Assistance-helper does LESS THAN HALF the effort. [place] lifts, holds or supports trunk or limbs, but provides less than half the effort. 2-Substantial/Maximal Assistance-helper does MORE THAN HALF the effort. [place] lifts or holds trunk or limbs and provides more than half the effort. 2-Uofwtyagw-wkyntw does ALL the effort. Patient does none of the effort to complete the activity. Or, the assistance of 2 or more helpers is required for the patient to complete the activity. If activity was not attempted, code reason: 7-Patient Refused. 9-Not Applicable-not attempted and the patient did not perform the activity be fore the current illness, exacerbation or injury. 10-Not Attempted due to Environmental Limitations-(lack of equipment, weather restraints, etc.). 88-Not Attempted due to Medical Conditions or Safety Concerns. Roll Left & Right (QC): 6 Sit to Lying (QC): 6 Lying to Sitting/Side of Bed(Q: 6 Sit to Stand (QC): 5 Chair/Wrt-ji-Iymlu Xfer(QC): 5 Toilet Transfer (QC): 5 Car Transfer (QC): 5 Weight Bearing Full Weight Bearing Full Weight Bearing Gait Training Does the Patient Walk?: Yes Distance: 150' x2 Walk 10 feet (QC): 5 Walk 50 ft with 2 Turns(QC): 5 Walk 150 ft (QC): 5 Walking 10ft/uneven surface-QC: 5 Gait Persons Needed: 1 Gait Assistive Device: Cane Single Point Pt correction or VC for drifting to L side or prevention of running into something on L side. Wheelchair Training Does the Pt Use a Wheelchair?: No Stair Training Stair Training: Handrails/: 2 handrails #of Steps: 4 1 Step (curb) (QC): 5 4 Steps (QC): 5 Stairs: Pattern: Step to Balance Picking up an Object (QC): 88 Special Test Comments Pt and [place]GING MACHINE OPERATOR agree this is not safe to test due to balance when bending over. Pt has good support at home and will have a dip tube assembler machine. Exercises NuStep Minutes: 15 NuStep Workload: 4 Treatments Pt completes QC scoring listed above as well as uses NuStep and amb. in hallway. Pt returns to room at end of tx to rest in bed before OT tx later this morning. All needs met, call light in hand. Assessment Current Status: Good Progress Pt continues to push self, motivated to get home. Pt has made gains in strength, mobility and independence of tasks although still limited by visual L side. PT Short Term Goals Short Term Goals Time Frame: May 08, 2021 Roll Left & Right: 4 Sit to lyin (Cynthia) Lying to sitting on side of be: 3 (Cynthia) Sit to stand: 3 (Cynthia) Chair/cqs-pr-ggyoe transfer: 3 (Cynthia) Walk 10 feet: 3 (Cynthia) Walk 50 feet with two turns: 3 (Cynthia) PT [facility] Goals Pediatric Urologist Goals PT Pediatric Urologist Goals Time Frame: May 22, 2021 Roll Left & Right (QC): 6 Sit to Lying (QC): 4 (SBA) Lying-Sitting on Side/Bed(QC): 4 (SBA) Sit to Stand (QC): 4 (SBA) Chair/Qix-vp-Ggvct Xfer(QC): 4 (SBA) Toilet Transfer (QC): 4 (SBA) Car Transfer (QC): 4 (SBA) Does the Patient Walk: Yes Walk 10 feet (QC): 4 (CGA) Walk 50ft with 2 Turns (QC): 4 (CGA) Walk 150 ft (QC): 88 Walking 10ft on Uneven Surface: 4 (CGA) 1 Step (curb) (QC): 4 (CGA) 4 Steps (QC): 4 (CGA) 12 Steps (QC): 88 Picking up an Object (QC): 88 Wheel 50 feet with 2 turns (QC: 5 Wheel 150 feet: 5 PT Plan Problem List Problem List: Activity Tolerance, Safety Treatment/Plan Treatment Plan: Continue Plan of Care Treatment Plan: Bed Mobility, Education, Functional Activity Jose Carlos, Functional Strength, Group Therapy, Gait, Safety, Therapeutic Exercise, Transfers Treatment Duration: May 22, 2021 Frequency: At least 5 of 7 days/Wk (IRF) Estimated Hrs Per Day: 1.5 hours per day Patient and/or Family Agrees t: Yes Safety Risks/Education Patient Education: Gait Training, Safety Issues Teaching Recipient: Patient Teaching Methods: Discussion Response to Teaching: Verbalize Understanding Time/GCodes Time In: 800 Time Out: 900 Total Billed Treatment Time: 60 Total Billed Treatment 1, GT (15m), FA x2 (30m) & EX (15m) TAYLA KERNS PTA May 23, 2021 10:00
--- NOTE | 2021-05-23 10:44 | PM&R Progress Note ---
Subjective HPI/CC On Admission Date Seen by Provider: May 23, 2021 Time Seen by Provider: 10:45 Subjective/Events-last exam 05/23/2021: Pt ready for discharge tomorrow Sent all meds to [facility] I will see him on Friday Left-sided neglect will special care at home 05/22/2021: Pt doing really well Worried about scalp lesion and it appears to be an abrasion and will monitor that but it may need to be biopsied Feels good otherwise DC is planned for 05/21/2021: Pt doing really well No bowels moving for a couple of days so will work on that No other issues 05/20/2021: Patient doing very well Moving left hand Using OT techniques for left hand weakness Moving around well 05/19/2021: Patient doing really well Bowels moved yesterday Restarted his home supplements of vitamins 05/18/2021: Pt doing really well Pleased with his progress Moving his hand much more today Doing very well 05/17/2021: Pt doing very well No major changes Bowels moved yesterday Pleased with his progress 05/16/2021: Pt doing really well Gripping his left hand Overall feels like he is improving No pain is reported Slept well Missed note inadvertently late entry 05/15/2021: Pt slept really well last night Bowels moved a couple of days ago No pain is reported Doing very well with a fabiano-cane 05/14/2021: Pt doing really well Potassium 3.4 Bowels moving Feels like he is not doing well but he is 05/13/21: Slept a bit better No dizziness after getting up this morning Somatic complaints Very slow recovery mentally from CVA 05/12/21: Patient doing well Not sleeping too well at times No falls Walking well Voiding well 05/11/2021: Patient feels pretty good Slept very well last night No change in medication Patient doing pretty well 05/10/2021: Pt doing really well He didnt sleep again well last night so will initiated Melatonin 6 mg and Remeron of 15 Dr. Valencia will see him PRN now Changed bed to make it more comfortable Bowels moved today 05/09/2021: Patient progressing well Bowels moved last night Vision is better in the right eye Somatic complaints 05/08/2021: Pt walking with a cane and a gait belt Left side neglect is noted Vision is improved Barium swallow will need to be done on the Pt as an outpatient Fish oil will be changed to bunny red per his home dose 05/07/2021: Pt doing pretty well but having things stuck in his throat He has had multiple EGDs and stretching before so will have Dr. Umana see him Multiple somatic complaints 05/06/2021: Patient doing really well today Bowels moved today Eating a bit more We will have speech therapy change diet 05/05/2021: Patient doing really well Seems to have little confidence Discontinue Carafate due to side effects Incision looks good on the right carotid Voiding well Bowels are moving 05/04/2021: Pt doing pretty well Walked in the halls Bowels moving a little bit now Urination doing pretty well 05/03/2021: Pt doing pretty well Cystoscope done and now voiding well DC Bactrim since he is having difficulty swallowing GERD issues continue Proton pump inhibitor and Carafate maintained Will have a suppository if bowels have not moved later 05/02/2021: Pt doing pretty well Became tearful a bit today No BM since 04/27 so laxatives given Nausea a bit last night Dr. Valencia saw him and will perform a cystoscopy tomorrow Dysphasia noted Left arm is tingling so hopefully we will regain some function Review of Systems General: Fatigue, Malaise Neurological: Weakness Objective Exam Vital Signs Vital Signs Date Time Temp Pulse Resp B/P (MAP) Pulse Ox O2 Delivery O2 Flow Rate FiO2 05/23/21 20:38 97 Room Air 05/23/21 20:00 37.3 73 16 111/60 (77) Capillary Refill : General Appearance: No Apparent Distress, WD/WN, Chronically ill HEENT: PERRL/EOMI, Normal ENT Inspection, Pharynx Normal Neck: Full Range of Motion, Normal Inspection, Non Tender, Supple, Carotid Bruit Respiratory: Chest Non Tender, Lungs Clear, Normal Breath Sounds, No Accessory Muscle Use, No Respiratory Distress Cardiovascular: Regular Rate, Rhythm, Normal Peripheral Pulses Gastrointestinal: Normal Bowel Sounds, No Organomegaly, No Pulsatile Mass, Non Tender, Soft Back: Normal Inspection, No CVA Tenderness, No Vertebral Tenderness Extremity: Normal Capillary Refill, Non Tender, No Calf Tenderness, No Pedal Edema Neurologic/Psychiatric: Alert, Oriented x3, Normal Mood/Affect, Motor Weakness (Left-sided weakness upper and lower extremities) Skin: Normal Color, Warm/Dry Lymphatic: No Adenopathy Results/Procedures Lab Patient resulted labs reviewed. FIM Transfers Therapy Code Descriptions/Definitions Functional [place] Measure: 0=Not Assessed/NA 4=Minimal Assistance 1=Total Assistance 5=Supervision or Setup 2=Maximal Assistance 6=Modified [place] 3=Moderate Assistance 7=Complete IndependenceSCALE: Activities may be completed with or without assistive devices. 5-Szwtrixmyq-hjplapz completes the activity by him/herself with no assistance from a helper. 5-Set-up or Clean-up Assistance-helper sets up or cleans up; patient completes activity. [place] assists only prior to or following the activity. 4-Supervision or Touching Assistance-helper provides verbal cues and/or touching/steadying and/or contact guard assistance as patient completes activity. Assistance may be provided throughout the activity or intermittently. 3-Partial/Moderate Assistance-helper does LESS THAN HALF the effort. [place] lifts, holds or supports trunk or limbs, but provides less than half the effort. 2-Substantial/Maximal Assistance-helper does MORE THAN HALF the effort. [place] lifts or holds trunk or limbs and provides more than half the effort. 3-Wjdqhxgkx-mzwpsb does ALL the effort. Patient does none of the effort to complete the activity. Or, the assistance of 2 or more helpers is required for the patient to complete the activity. If activity was not attempted, code reason: 7-Patient Refused. 9-Not Applicable-not attempted and the patient did not perform the activity before the current illness, exacerbation or injury. 10-Not Attempted due to Environmental Limitations-(lack of equipment, weather restraints, etc.). 88-Not Attempted due to Medical Conditions or Safety Concerns. Roll Left to Right (QC): 6 Sit to Lying (QC): 6 Sit to Stand (QC): 5 Chair/Wzo-cr-Hpgbd Xfer(QC): 5 Car Transfer (QC): 5 Gait Training Does the Patient Walk?: Yes Distance: 150' x2 Walk 10 feet (QC): 5 Walk 50 ft with 2 Turns(QC): 5 Walk 150 ft (QC): 5 Walking 10ft/uneven surface-QC: 5 Gait Persons Needed: 1 Gait Assistive Device: Cane Single Point Wheelchair Training Does the Pt Use a Wheelchair?: No Distance: 400' Wheel 50 ft with 2 turns (QC): 6 Wheel 150 ft (QC): 6 Type of Wheelchair: Manual Stair Training Stair Training: Handrails/: 2 handrails #of Steps: 4 1 Step (curb) (QC): 5 4 Steps (QC): 5 12 Steps (QC): 88 Stairs: Pattern: Step to Balance Picking up an Object (QC): 88 ADL-Treatment Eating (QC): 5 (Set up required then uses hands or regular utensils to eat.) Oral Hygiene (QC): 6 Bathing Location: L Arm, R Arm, L Upper Leg, R Upper Leg, L Lower Leg (including foot), R Lower Leg (including foot), Chest, Abdomen, Buttocks, Perineal Area Shower/Bathe Self (QC): 6 Upper Body Dressing (QC): 3 (Mod A) Lower Body Dressing (QC): 3 (Mod A) On/Off Footwear (QC): 3 (mod A) Toileting Hygiene (QC): 4 (SBA while pt. 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 Umana Plan: Aggressive therapy Urology consult Monitor closely 05/02/2021: Appreciate urology Cystoscopy tomorrow Bowel regimen 05/03/2021: Status post cystoscopy Voiding well now DC Bactrim 05/04/2021: Much improved Moving around much better Monitor bowel function 05/05/2021: Supportive care Ambulating well 05/06/2021: Supportive care Monitor closely 05/07/2021: Dr. Umana appreciated Dysphagia management 05/08/2021: Monitor closely Dysphagia management 05/09/2021: Supportive care Dysphagia management Monitor closely 05/10/2021: Focus on insomnia tonight Monitor closely 05/11/2021: Supportive care Monitor closely 05/12/21: Monitor closely Monitor pain 05/13/21: Monitor dysphagia Fall risk 05/14/2021: Supportive care Build confidence 05/15/2021: Supportive care Monitor progress 05/16/2021: Dramatic improvement Progress with aggressive therapy 05/17/2021: Supportive care Much improved status 05/18/2021: Supportive care Much improved status with hand now 05/19/2021: Supportive care Monitor closely 05/20/2021: Patient much improved Left hand exercises 05/21/2021: Much improved status Discharge plan soon 05/22/2021: Supportive care Monitor closely We will follow up on right scalp lesion as an outpatient 05/23/2021: Discharge plan for tomorrow (1) CVA (cerebral vascular accident) GUILLERMO CABELLO DO May 23, 2021 10:44
[2021-05-23] MEDS ORDERED: AMLO-250 PO (12:23)
[2021-05-23] MEDS ORDERED: TMSL.4C PO (12:23)
[2021-05-23] MEDS ORDERED: ATOR80TA76 PO (12:23)
[2021-05-23] MEDS ORDERED: DICL100G13 TOP (12:23)
[2021-05-23] MEDS ORDERED: PANT40TA52 PO (12:23)
[2021-05-23] MEDS ORDERED: POTA10TA6 PO (12:23)
[2021-05-23] MEDS ORDERED: FAMO20TA5 PO (12:23)
[2021-05-23] MEDS ORDERED: ACET325T49 PO (12:23)
[2021-05-23] MEDS ORDERED: CLOP75TA69 PO (12:23)
[2021-05-23] MEDS ORDERED: MIRT-47 PO (12:23)
[2021-05-23] MEDS ORDERED: ALPR.25T PO (12:23)
[2021-05-23] MEDS ORDERED: ASPI-1238 PO (12:23)
--- NOTE | 2021-05-23 12:34 | Occupational Ther Daily Note ---
OT Current Status-Daily Note Subjective Pt. in recliner upon entry. Pt. pleasant, agrees to therapy Mental Status/Objective Patient Orientation: Person, Place, Time, Situation ADL-Treatment Pt. ambulated with SPC SBA. Pt. performed oral hygiene independently sitting at sink. Pt. used grab bars to supervisor reinforced steel placing shower to doff shorts, sat on shower bench to doff shirt. Pt. performed cleansing/drying independently. Pt. Mod A. to don shirt. Pt. Min A. don shorts. Pt. set up for footwear. Therapy Code Descriptions/Definitions Functional [place] Measure: 0=Not Assessed/NA 4=Minimal Assistance 1=Total Assistance 5=Supervision or Setup 2=Maximal Assistance 6=Modified [place] 3=Moderate Assistance 7=Complete IndependenceSCALE: Activities may be completed with or without assistive devices. 6-Dnkvtawknw-ibjfswm completes the activity by him/herself with no assistance from a helper. 5-Set-up or Clean-up Assistance-helper sets up or cleans up; patient completes activity. [place] assists only prior to or following the activity. 4-Supervision or Touching Assistance-helper provides verbal cues and/or touching/steadying and/or contact guard assistance as patient completes activity. Assistance may be provided throughout the activity or intermittently. 3-Partial/Moderate Assistance-helper does LESS THAN HALF the effort. [place] lifts, holds or supports trunk or limbs, but provides less than half the effort. 2-Substantial/Maximal Assistance-helper does MORE THAN HALF the effort. [place] lifts or holds trunk or limbs and provides more than half the effort. 0-Kxqhadnhz-sntlby does ALL the effort. Patient does none of the effort to complete the activity. Or, the assistance of 2 or more helpers is required for the patient to complete the activity. If activity was not attempted, code reason: 7-Patient Refused. 9-Not Applicable-not attempted and the patient did not perform the activity before the current illness, exacerbation or injury. 10-Not Attempted due to Environmental Limitations-(lack of equipment, weather restraints, etc.). 88-Not Attempted due to Medical Conditions or Safety Concerns. Eating (QC): 5 (Set up) Oral Hygiene (QC): 6 (Independent sitting at sink) Bathing Location: L Arm, R Arm, L Upper Leg, R Upper Leg, L Lower Leg (including foot), R Lower Leg (including foot), Chest, Abdomen, Buttocks, Perineal Area Shower/Bathe Self (QC): 6 Upper Body Dressing (QC): 3 (Mod A.) Lower Body Dressing (QC): 3 (Min A.) On/Off Footwear: 5 (Set Up) Toileting Hygiene (QC): 3 (Min A. pant hike) Toilet Transfer (QC): 5 Other Treatment Pt. ambulated SPC SBA with verbal cues for scanning to gym. Pt. squeezed and released medium resistance Thera Putty. Pt. squeezed/released with L hand while performing shoulder horizontal abd/add to pull with resistance 3x's. Pt. ambulated to room using SPC SBA. Pt. left in recliner, call light/phone in reach. All needs met in room. OT Short Term Goals Short Term Goals Time Frame: May 11, 2021 Shower/bathe self: 3 Upper body dressin Lower body dressin Putting on/taking off footwear: 3 OT Mcfp Goals Mcfp Goals Time Frame: Jun 01, 2021 Eating (QC): 5 (met) Oral Hygiene (QC): 5 (met) Toileting Hygiene (QC): 4 (met) Shower/Bathe Self (QC): 4 (met) Upper Body Dressing (QC): 5 (not met) Lower Body Dressing (QC): 4 (not met) On/Off Footwear (QC): 4 (met) Additional Goals: 1-Demonstrate ADL Tasks, 2-Verbalize Understanding, 3- ImproveStrength/Jose Carlos 1=Demonstrate adherence to instructed precautions during ADL tasks. 2=Patient will verbalize/demonstrate understanding of assistive devices/modif ications for ADL. 3=Patient will improve strength/tolerance for activity to enable patient to perform ADL's. OT Education/Plan Problem List/Assessment Assessment: Decreased Activ Tolerance, Decreased Safety Aware, Decreased UE Strength, Impaired Coordination, Impaired Self-Care Skills Discharge Recommendations Plan/Recommendations: Continue POC Treatment Plan/Plan of Care Patient would benefit from OT for education, treatment and training to promote independence in ADL's, mobility, safety and/or upper extremity function for ADL's. Plan of Care: ADL Retraining, Functional Mobility, Group Exercise/Act as Ind, UE Funct Exercise/Act Treatment Duration: Jun 01, 2021 Frequency: 2 times per week Estimated Hrs Per Day: 1.5 hours per day Agreement: Yes Rehab Potential: Fair Time/GCodes Start Time: 11:00 Stop Time: 12:00 Total Time Billed (hr/min): 60 Billed Treatment Time 1 visit- ADL 3 (40 min ), Ex 1(20 min) AAKASH HODGES May 23, 2021 12:34
--- NOTE | 2021-05-23 14:30 | Therapy Group Daily Note ---
Therapy Daily Group Note Patient Education Topic Other List Below (ARU, transfers, bed mobility) Exercises LE Seated Exercise, UE Exercise Session Ratio (pt:therapist): 4:1 Goal of Session: Education on ARU Expectations, UE/LE Strengthing, Safety with Transfers Goal Met for this Session: Yes Pt Benefit of Group: Contributions to Others, F/U Use of Strategies @Home, Increased Functional Safety, Increased Functional Strength, Improved Cognition, Recognition of Peers, Socialization Other/Notes Pt ambulated using FWW to [facility] area for OT/PT group. Group consisted of introductions (name, place living, favorite restaurant), socialization, B UE/LE seated exercises and education on bed mobility/transfers. Pt introduced self appropriately and actively listened to peers. Pt acknowledged understanding of educational topics by nodding head in affirmation/verbalization. Pt able to complete B UE/LE seated exercises without difficulty. After therapy, pt lying in bed with call light/phone in reach. All needs met in room. Start Time: 13:00 Stop Time: 14:10 Total Billed Treatment Time: 70 Total Billed Treatment 1-AAKASH CASTORENA May 23, 2021 14:30
[2021-05-23] MEDS: TAMSULOSIN 0.4 MG (FLOMAX) CAP PO SCH (17:38)
[2021-05-23 20:00] VITALS: BP 111/60
[2021-05-23] MEDS: MELATONIN 3 MG TABLET PO SCH (20:32)
[2021-05-23] MEDS: MIRTAZAPINE 15 MG (REMERON) TAB PO SCH (20:33)
[2021-05-23] MEDS: ACETAMINOPHEN 325 MG TABLET PO PRN (20:35)
--- NOTE | 2021-05-24 05:38 | Discharge Summary ---
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 Umana Plan: Aggressive therapy Urology consult Monitor closely 05/02/2021: Appreciate urology Cystoscopy tomorrow Bowel regimen 05/03/2021: Status post cystoscopy Voiding well now DC Bactrim 05/04/2021: Much improved Moving around much better Monitor bowel function 05/05/2021: Supportive care Ambulating well 05/06/2021: Supportive care Monitor closely 05/07/2021: Dr. Umana appreciated Dysphagia management 05/08/2021: Monitor closely Dysphagia management 05/09/2021: Supportive care Dysphagia management Monitor closely 05/10/2021: Focus on insomnia tonight Monitor closely 05/11/2021: Supportive care Monitor closely 05/12/21: Monitor closely Monitor pain 05/13/21: Monitor dysphagia Fall risk 05/14/2021: Supportive care Build confidence 05/15/2021: Supportive care Monitor progress 05/16/2021: Dramatic improvement Progress with aggressive therapy 05/17/2021: Supportive care Much improved status 05/18/2021: Supportive care Much improved status with hand now 05/19/2021: Supportive care Monitor closely 05/20/2021: Patient much improved Left hand exercises 05/21/2021: Much improved status Discharge plan soon 05/22/2021: Supportive care Monitor closely We will follow up on right scalp lesion as an outpatient 05/23/2021: Discharge plan for tomorrow (1) CVA (cerebral vascular accident) Discharge Summary Discharge Physical Examination Allergies: Coded Allergies: aloe vera (Verified Allergy, Unknown, 05/01/21) cephalexin (Verified Allergy, Unknown, 05/01/21) influenza virus vaccine ts [id number] (36 mos,up) (Verified Allergy, Unknown, 05/01/21) Vitals & I&Os Vital Signs Date Time Temp Pulse Resp B/P (MAP) Pulse Ox O2 Delivery O2 Flow Rate FiO2 05/24/21 13:40 36.8 74 20 116/58 97 Room Air General Appearance: Alert, Oriented X3, Cooperative Respiratory: Clear to Auscultation Cardiovascular: Regular Rate Psych/Mental Status: Mental Status NL Hospital Course Was the Problem List Reviewed?: Yes Hospital course: Patient had a lengthy hospital course for 24 days after suffering a stroke and was transferred for intensive rehab. He suffered left- sided weakness with severe urinary retention with Samano catheter maintenance p rompting urology consultation and ultimately resolved with discontinuation of the Samano catheter and resumption of normal voiding. Constipation resolved after aggressive laxatives. Blood pressure remained stable. Overall patient was able to regain enough function to walk with an assistive device and patient was deemed stable for discharge home with close follow-up with me in clinic. Labs (last 24 hrs) Laboratory Tests 05/01/21 12:50: Lab Scanned Report Referred Lab Report 05/01/21 17:55: Urine Color YELLOW, Urine Clarity CLEAR, Urine pH 6.0, Urine Specific [place] 1.025H, Urine Protein TRACEH, Urine Glucose (UA) NEGATIVE, Urine Ketones 2+H, Urine Nitrite NEGATIVE, Urine Bilirubin 1+H, Urine Urobilinogen 0.2, Urine Leukocyte Esterase 1+H, Urine RBC (Auto) 3+H, Urine RBC 25-50H, Urine WBC 5-10H, Urine Crystals PRESENTH, Urine Amorphous Sediment FEW HENOK URATESH, Urine Bacteria TRACE, Urine Casts PRESENT, Urine Hyaline Casts 2-5H, Urine Mucus MODERATEH, Urine Culture Indicated YES 05/02/21 06:25: White Blood Count 7.6, Red Blood Count 3.74L, Hemoglobin 10.9L, Hematocrit 35L, Mean Corpuscular Volume 93, Mean Corpuscular Hemoglobin 29, Mean Corpuscular Hemoglobin Concent 32, Red Cell Distribution Width 13.1, Platelet Count 208, Mean Platelet Volume 10.0, Immature Granulocyte % (Auto) 1, Neutrophils (%) (Auto) 66, Lymphocytes (%) (Auto) 20, Monocytes (%) (Auto) 9, Eosinophils (%) (Auto) 4, Basophils (%) (Auto) 1, Neutrophils # (Auto) 5.0, Lymphocytes # (Auto) 1.5, Monocytes # (Auto) 0.7, Eosinophils # (Auto) 0.3, Basophils # (Auto) 0.1, Immature Granulocyte # (Auto) 0.1, Sodium Level 138, Potassium Level 3.6, Chloride Level 101, Carbon Dioxide Level 25, Anion Gap 12, Blood Urea Nitrogen 17, Creatinine 0.94, Estimat Glomerular Filtration Rate 77, BUN/Creatinine Ratio 18, Glucose Level 101, Calcium Level 8.5, Corrected Calcium 9.1, Total Bilirubin 0.6, Aspartate Amino Transf (AST/SGOT) 29, Alanine Aminotransferase (ALT/SGPT) 29, Alkaline Phosphatase 65, Total Protein 6.5, Albumin 3.3 05/07/21 05:34: White Blood Count 7.3, Red Blood Count 3.72L, Hemoglobin 10.9L, Hematocrit 32L, Mean Corpuscular Volume 87, Mean Corpuscular Hemoglobin 29, Mean Corpuscular Hemoglobin Concent 34, Red Cell Distribution Width 13.1, Platelet Count 296, Mean Platelet Volume 9.5, Immature Granulocyte % (Auto) 1, Neutrophils (%) (Auto) 60, Lymphocytes (%) (Auto) 28, Monocytes (%) (Auto) 8, Eosinophils (%) (Auto) 3, Basophils (%) (Auto) 1, Neutrophils # (Auto) 4.4, Lymphocytes # (Auto) 2.0, Monocytes # (Auto) 0.6, Eosinophils # (Auto) 0.2, Basophils # (Auto) 0.0, Immature Granulocyte # (Auto) 0.1, Sodium Level 138, Potassium Level 3.5L, Chloride Level 104, Carbon Dioxide Level 24, Anion Gap 10, Blood Urea Nitrogen 10, Creatinine 0.95, Estimat Glomerular Filtration Rate 76, BUN/Creatinine Ratio 11, Glucose Level 99, Calcium Level 8.7, Corrected Calcium 9.3, Total Bilirubin 0.5, Aspartate Amino Transf (AST/SGOT) 48H, Alanine Aminotransferase (ALT/SGPT) 47, Alkaline Phosphatase 76, Total Protein 6.4, Albumin 3.2, Percent Immature Platelet Fraction 2.2 05/14/21 05:53: White Blood Count 5.4, Red Blood Count 3.79L, Hemoglobin 10.9L, Hematocrit 35L, Mean Corpuscular Volume 91, Mean Corpuscular Hemoglobin 29, Mean Corpuscular Hemoglobin Concent 32, Red Cell Distribution Width 13.4, Platelet Count 271, Mean Platelet Volume 9.8, Immature Granulocyte % (Auto) 1, Neutrophils (%) (Auto) 46, Lymphocytes (%) (Auto) 38, Monocytes (%) (Auto) 8, Eosinophils (%) (Auto) 7, Basophils (%) (Auto) 1, Neutrophils # (Auto) 2.4, Lymphocytes # (Auto) 2.0, Monocytes # (Auto) 0.5, Eosinophils # (Auto) 0.4H, Basophils # (Auto) 0.1, Immature Granulocyte # (Auto) 0.0, Sodium Level 141, Potassium Level 3.4L, C hloride Level 109H, Carbon Dioxide Level 25, Anion Gap 7, Blood Urea Nitrogen 9, Creatinine 0.91, Estimat Glomerular Filtration Rate 80, BUN/Creatinine Ratio 10, Glucose Level 110H, Calcium Level 8.5, Corrected Calcium 9.2, Total Bilirubin 0.3, Aspartate Amino Transf (AST/SGOT) 37H, Alanine Aminotransferase (ALT/SGPT) 44, Alkaline Phosphatase 70, Total Protein 6.0L, Albumin 3.1L 05/21/21 05:18: White Blood Count 6.3, Red Blood Count 3.76L, Hemoglobin 10.7L, Hematocrit 35L, Mean Corpuscular Volume 92, Mean Corpuscular Hemoglobin 29, Mean Corpuscular Hemoglobin Concent 31L, Red Cell Distribution Width 13.5, Platelet Count 254, Mean Platelet Volume 10.0, Immature Granulocyte % (Auto) 0, Neutrophils (%) (Auto) 48, Lymphocytes (%) (Auto) 36, Monocytes (%) (Auto) 8, Eosinophils (%) (Auto) 7, Basophils (%) (Auto) 1, Neutrophils # (Auto) 3.0, Lymphocytes # (Auto) 2.3, Monocytes # (Auto) 0.5, Eosinophils # (Auto) 0.4H, Basophils # (Auto) 0.1, Immature Granulocyte # (Auto) 0.0, Sodium Level 140, Potassium Level 3.9, Chloride Level 108H, Carbon Dioxide Level 25, Anion Gap 7, Blood Urea Nitrogen 10, Creatinine 0.88, Estimat Glomerular Filtration Rate 83, BUN/Creatinine Ratio 11, Glucose Level 101, Calcium Level 8.6, Corrected Calcium 9.2, Total Bilirubin 0.4, Aspartate Amino Transf (AST/SGOT) 38H, Alanine Aminotransferase (ALT/SGPT) 44, Alkaline Phosphatase 72, Total Protein 6.1L, Albumin 3.2 Microbiology 05/01/21 Urine Culture - Final, Complete NO GROWTH Pending Labs Microbiology Date/Time Source Procedure Growth Status 05/01/21 17:55 Urine Samano Cath Urine Culture - Final NO GROWTH Complete Laboratory Tests 05/01/21 12:50: Lab Scanned Report Referred Lab Report 05/01/21 17:55: Urine Color YELLOW, Urine Clarity CLEAR, Urine pH 6.0, Urine Specific [place] 1.025, Urine Protein TRACE, Urine Glucose (UA) NEGATIVE, Urine Ketones 2+, Urine Nitrite NEGATIVE, Urine Bilirubin 1+, Urine Urobilinogen 0.2, Urine Leukocyte Esterase 1+, Urine RBC (Auto) 3+, Urine RBC 25-50, Urine WBC 5-10, Urine Crystals PRESENT, Urine Amorphous Sediment FEW HENOK URATES, Urine Bacteria TRACE, Urine Casts PRESENT, Urine Hyaline Casts 2-5, Urine Mucus MODERATE, Urine Culture Indicated YES 05/02/21 06:25: White Blood Count 7.6, Red Blood Count 3.74, Hemoglobin 10.9, Hematocrit 35, Mean Corpuscular Volume 93, Mean Corpuscular Hemoglobin 29, Mean Corpuscular Hemoglobin Concent 32, Red Cell Distribution Width 13.1, Platelet Count 208, Mean Platelet Volume 10.0, Immature Granulocyte % (Auto) 1, Neutrophils (%) (Auto) 66, Lymphocytes (%) (Auto) 20, Monocytes (%) (Auto) 9, Eosinophils (%) (Auto) 4, Basophils (%) (Auto) 1, Neutrophils # (Auto) 5.0, Lymphocytes # (Auto) 1.5, Monocytes # (Auto) 0.7, Eosinophils # (Auto) 0.3, Basophils # (Auto) 0.1, Immature Granulocyte # (Auto) 0.1, Sodium Level 138, Potassium Level 3.6, Chloride Level 101, Carbon Dioxide Level 25, Anion Gap 12, Blood Urea Nitrogen 17, Creatinine 0.94, Estimat Glomerular Filtration Rate 77, BUN/Creatinine Ratio 18, Glucose Level 101, Calcium Level 8.5, Corrected Calcium 9.1, Total Bilirubin 0.6, Aspartate Amino Transf (AST/SGOT) 29, Alanine Aminotransferase (ALT/SGPT) 29, Alkaline Phosphatase 65, Total Protein 6.5, Albumin 3.3 05/07/21 05:34: White Blood Count 7.3, Red Blood Count 3.72, Hemoglobin 10.9, Hematocrit 32, Mean Corpuscular Volume 87, Mean Corpuscular Hemoglobin 29, Mean Corpuscular Hemoglobin Concent 34, Red Cell Distribution Width 13.1, Platelet Count 296, Mean Platelet Volume 9.5, Immature Granulocyte % (Auto) 1, Neutrophils (%) (Auto) 60, Lymphocytes (%) (Auto) 28, Monocytes (%) (Auto) 8, Eosinophils (%) (Auto) 3, Basophils (%) (Auto) 1, Neutrophils # (Auto) 4.4, Lymphocytes # (Auto) 2.0, Monocytes # (Auto) 0.6, Eosinophils # (Auto) 0.2, Basophils # (Auto) 0.0, Immature Granulocyte # (Auto) 0.1, Sodium Level 138, Potassium Level 3.5, Chloride Level 104, Carbon Dioxide Level 24, Anion Gap 10, Blood Urea Nitrogen 10, Creatinine 0.95, Estimat Glomerular Filtration Rate 76, BUN/Creatinine Ratio 11, Glucose Level 99, Calcium Level 8.7, Corrected Calcium 9.3, Total Bilirubin 0.5, Aspartate Amino Transf (AST/SGOT) 48, Alanine Aminotransferase (ALT/SGPT) 47, Alkaline Phosphatase 76, Total Protein 6.4, Albumin 3.2, Percent Immature Platelet Fraction 2.2 05/14/21 05:53: White Blood Count 5.4, Red Blood Count 3.79, Hemoglobin 10.9, Hematocrit 35, Mean Corpuscular Volume 91, Mean Corpuscular Hemoglobin 29, Mean Corpuscular Hemoglobin Concent 32, Red Cell Distribution Width 13.4, Platelet Count 271, Mean Platelet Volume 9.8, Immature Granulocyte % (Auto) 1, Neutrophils (%) (Auto) 46, Lymphocytes (%) (Auto) 38, Monocytes (%) (Auto) 8, Eosinophils (%) (Auto) 7, Basophils (%) (Auto) 1, Neutrophils # (Auto) 2.4, Lymphocytes # (Auto) 2.0, Monocytes # (Auto) 0.5, Eosinophils # (Auto) 0.4, Basophils # (Auto) 0.1, Immature Granulocyte # (Auto) 0.0, Sodium Level 141, Potassium Level 3.4, Chloride Level 109, Carbon Dioxide Level 25, Anion Gap 7, Blood Urea Nitrogen 9, Creatinine 0.91, Estimat Glomerular Filtration Rate 80, BUN/Creatinine Ratio 10, Glucose Level 110, Calcium Level 8.5, Corrected Calcium 9.2, Total Bilirubin 0.3, Aspartate Amino Transf (AST/SGOT) 37, Alanine Aminotransferase (ALT/SGPT) 44, Alkaline Phosphatase 70, Total Protein 6.0, Albumin 3.1 05/21/21 05:18: White Blood Count 6.3, Red Blood Count 3.76, Hemoglobin 10.7, Hematocrit 35, Mean Corpuscular Volume 92, Mean Corpuscular Hemoglobin 29, Mean Corpuscular Hemoglobin Concent 31, Red Cell Distribution Width 13.5, Platelet Count 254, Mean Platelet Volume 10.0, Immature Granulocyte % (Auto) 0, Neutrophils (%) (Auto) 48, Lymphocytes (%) (Auto) 36, Monocytes (%) (Auto) 8, Eosinophils (%) (Auto) 7, Basophils (%) (Auto) 1, Neutrophils # (Auto) 3.0, Lymphocytes # (Auto) 2.3, Monocytes # (Auto) 0.5, Eosinophils # (Auto) 0.4, Basophils # (Auto) 0.1, Immature Granulocyte # (Auto) 0.0, Sodium Level 140, Potassium Level 3.9, Chloride Level 108, Carbon Dioxide Level 25, Anion Gap 7, Blood Urea Nitrogen 10, Creatinine 0.88, Estimat Glomerular Filtration Rate 83, BUN/Creatinine Ratio 11, Glucose Level 101, Calcium Level 8.6, Corrected Calcium 9.2, Total Bilirubin 0.4, Aspartate Amino Transf (AST/SGOT) 38, Alanine Aminotransferase (ALT/SGPT) 44, Alkaline Phosphatase 72, Total Protein 6.1, Albumin 3.2 Discharge Home Medications: Active Scripts Active Pantoprazole Sodium 40 Mg Tablet.dr 40 Mg PO BID Famotidine 20 Mg Tablet 20 Mg PO BID PRN Klor-Con 10 (Potassium Chloride) 10 Meq Tablet.er 10 Meq PO DAILY@0700 Xanax Tablet (Alprazolam) 0.25 Mg Tab 0.25 Mg PO Q8H PRN Mirtazapine 15 Mg Tab.rapdis 7.5 Mg PO HS Acetaminophen 325 Mg Tablet 650 Mg PO Q4H PRN Diclofenac Sodium 100 Gm Gel..gram. 1 Gm TOP QID PRN Flomax (Tamsulosin HCl) 0.4 Mg Cap 0.4 Mg PO DAILY@1800 Atorvastatin Calcium 80 Mg Tablet 80 Mg PO HS Amlodipine Besylate 5 Mg Tablet 5 Mg PO DAILY Plavix (Clopidogrel Bisulfate) 75 Mg Tablet 75 Mg PO DAILY Aspirin EC (Aspirin) 81 Mg Tablet.dr 81 Mg PO DAILY Reported Garlic 500 Mg Capsule 500 Mg PO DAILY Zinc (Zinc Gluconate) 10 Mg Lozenge 10 Mg PO DAILY Vitamin D3 (Cholecalciferol (Vitamin D3)) 125 Mcg Tablet 125 Mcg PO DAILY Complete Lund Softgel (Omega3,5,6,7,9 No.1/Norvell Oil) 1 Each Capsule 1 Each PO DAILY Lactobacillus Tablet (L. Acidophilus/L.bulgaricus) 1 Each Tablet 1 Each PO DAILY Instructions to patient/family Please see electronic discharge instructions given to patient. Diagnosis/Problems Diagnosis/Problems (1) CVA (cerebral vascular accident) GUILLERMO CABELLO DO May 24, 2021 05:38
[2021-05-24] MEDS: KCL 10 MEQ TAB (MICRO K) PO SCH (06:41)
[2021-05-24 07:54] VITALS: BP 116/58
[2021-05-24] MEDS: ASPIRIN E.C. 81 MG (ECOTRIN) TAB PO SCH (09:06)
[2021-05-24] MEDS: CLOPIDOGREL 75 MG (PLAVIX) TABLET PO SCH (09:06)
[2021-05-24] MEDS: MEGA RED PO SCH (09:06)
[2021-05-24] MEDS: VITAMIN D3 125 MCG (5,000 UNITS) CAPSULE PO SCH (09:06)
[2021-05-24] MEDS: amLODIPine 5 MG (NORVASC) TAB PO SCH (09:06)
[2021-05-24] MEDS: PANTOPRAZOLE 40 MG (PROTONIX) TAB PO SCH (09:06)
[2021-05-24] MEDS: LACTOBACILLUS ACIDOPHILUS (PROBIOTIC) CAPSULE PO SCH (09:06)
[2021-05-24] MEDS: SENNA W/DOCUSATE (SENOKOT S) TABLET PO SCH (09:19)
[2021-05-24] MEDS: DOCUSATE SODIUM 100 MG (COLACE) CAP PO SCH (09:19)
[2021-05-24] MEDS: polyethylene glycoL POWDER 17 GM (MIRALAX) PACK PO SCH (09:19)
--- NOTE | 2021-05-24 10:18 | Speech Therapy Daily Note ---
Speech Daily Progress Note Subjective Date Seen by Provider: May 24, 2021 Time Seen by Provider: 00:30 Patient was alert and pleasant. He was cooperative with skilled ST and appears to be happy about returning home today Objective Pt participated in skilled ST services to target safe swallow precautions with regular solids/thin liquids. Pt was able to recall safety strategies and precautions for swallowing (e.g. chin tuck, sitting upright, small bites/sips, etc) independently 100% accuracy. Pt was re-educated on sitting upright 30 minutes post mealtime to reduce reflux/emesis. Pt verbalized understanding of precautions and carryover in home setting Assessment Assessment Current Status: Excellent Progress Treatment Plan Discontinue ST, Goals Met Speech Short Term Goals Short Term Goals Short Term Goals 1) Patient will tolerate least restrictive diet level without s/s of aspiration at 90% or greater. 2) Patient will utilize compensatory strategies for safe oral intake at 90% or greater with minimal cues. Speech Detention Goals Airline Pilot Goals Patient will maintain adequate nutrition/hydration via safe effective swallow function. Speech-Plan Patient/Family Goals Patient/Family Goals: Pt d/c to return home with Treatment Plan Speech Therapy Treatment Plan: Discontinue ST, Goals Met Pt has met all ST goals and will d/c today to home. Pt verbalized understanding of safe swallow precautions/strategies and carryover at home setting Treatment Duration: May 18, 2021 Frequency: 4 times per week (Patient will receive skilled ST 4-5x per week) Estimated Hrs Per Day: .5 hour per day Rehab Potential: Good Barriers to Learning: N/A Pt/Family Agrees to Plan: Yes Safety Risks/Education Teaching Recipient: Patient Teaching Methods: Discussion Response to Teaching: Verbalize Understanding Education Topics Provided: safe swallowing strategies/precautions (e.g. chin tuck, sitting upright, small bites/sips, sitting upright 30 minutes post meals). Discharge Recommendations Home & Family Time Speech Therapy Time In: 09:45 Speech Therapy Time Out: 10:15 Total Billed Time: 30 Billed Treatment Time 1, DANETTE Coon May 24, 2021 10:18
--- NOTE | 2021-05-24 10:28 | Therapy Team Discharge Summary ---
Therapy Discharge Summary Discharge Recommendations Date of Discharge 05/24/2021 Therapy D/C Recommendations: Home w/ Family Support Occupational Therapy Decreased Activ Tolerance, Decreased Safety Aware, Decreased UE Strength, Impaired Coordination, Impaired Self-Care Skills Speech-Language Pathology Continue safe swallow precautions/strategies with regular solids/thin liquids. Pt tolerating regular/thins with no overt s/s aspiration. Pt independently recalled compensatory strategy of chin tuck and precautions (e.g. sitting u pright, small bites/sips, alternating bites/sips, etc). He was re-educated on sitting upright 30 minutes post meals. Pt verbalized understanding of precautions/strategies for safe swallowing and plan to carryover in home setting. PT Social Media Marketing Specialist Goals Social Media Marketing Specialist Goals PT Social Media Marketing Specialist Goals Time Frame: May 22, 2021 Roll Left to Right (QC): 6 Sit to Lying (QC): 4 (SBA) Lying-Sitting on Side/Bed(QC): 4 (SBA) Sit to Stand (QC): 4 (SBA) Chair/Iam-jh-Jbqsu Xfer(QC): 4 (SBA) Car Transfer (QC): 4 (SBA) Does the Patient Walk: Yes Walk 10 feet (QC): 4 (CGA) Walk 10ft-Uneven Surface(QC): 4 (CGA) Walk 50ft with 2 Turns (QC): 4 (CGA) Walk 150 ft (QC): 88 Wheel 50 feet with 2 turns (QC: 5 1 Step (curb) (QC): 4 (CGA) 4 Steps (QC): 4 (CGA) 12 Steps (QC): 88 Picking up an Object (QC): 88 OT Social Media Marketing Specialist Goals Social Media Marketing Specialist Goals Time Frame: Jun 01, 2021 Eating (QC): 5 (met) Oral Hygiene (QC): 5 (met) Shower/Bathe Self (QC): 4 (met) Upper Body Dressing (QC): 5 (not met) Lower Body Dressing (QC): 4 (not met) On/Off Footwear (QC): 4 (met) Toileting Hygiene (QC): 4 (met) Toilet/Commode Transfer (QC): 4 (SBA) Additional Goals: 1-Demonstrate ADL Tasks, 2-Verbalize Understanding, 3- ImproveStrength/Jose Carlos 1=Demonstrate adherence to instructed precautions during ADL tasks. 2=Patient will verbalize/demonstrate understanding of assistive devices/modifications for ADL. 3=Patient will improve strength/tolerance for activity to enable patient to perform ADL's. Speech Usp Goals Social Media Marketing Specialist Goals Patient will maintain adequate nutrition/hydration via safe effective swallow function. Comprehension: 6 Expression: 6 Social Interaction: 6 Problem Solvin Memory: 6 DANETTE BOLAND May 24, 2021 10:28
--- NOTE | 2021-05-24 11:00 | Therapy Team Discharge Summary ---
Therapy Discharge Summary Discharge Recommendations Date of Discharge Therapy D/C Recommendations: Home w/ Family Support Physical Therapy Patient came to rehab following a CVA. Upon evaluation patient performed bed mobility with min assist, supine <-> sit and sit <-> stand mod assist, transfers and car transfer mod assist, ambulated 20' with a hemiwalker with mod assist, and propelled a manual WC 400' with min/mod assist. Patient has been performing bed mobility and transfer training, balance and endurance training, functional strengthening, stair training, gait training, and education. Patient has made good progress and has met all of his prison goals, however, he still struggles with visual impairments. Patient now, performs bed mobility and supine <-> sit with independence, sit <-> stand and transfers with SBA, car transfer SBA, ambulates 150' with a single point cane with SBA (including 50' with at least 2 turns of 90 degrees and 10' over an uneven surface), and can go up and down 4 steps using 2 handrails with SBA. Patient is being discharged from this facility today and will be discharged from PT at this time. Occupational Therapy Decreased Activ Tolerance, Decreased Safety Aware, Decreased UE Strength, Impaired Coordination, Impaired Self-Care Skills PT Nursing Home Goals Nursing Home Goals PT Nursing Home Goals Time Frame: May 22, 2021 Roll Left to Right (QC): 6 Sit to Lying (QC): 4 (SBA) Lying-Sitting on Side/Bed(QC): 4 (SBA) Sit to Stand (QC): 4 (SBA) Chair/[id number]-Kgqqg Xfer(QC): 4 (SBA) Car Transfer (QC): 4 (SBA) Does the Patient Walk: Yes Walk 10 feet (QC): 4 (CGA) Walk 10ft-Uneven Surface(QC): 4 (CGA) Walk 50ft with 2 Turns (QC): 4 (CGA) Walk 150 ft (QC): 88 Wheel 50 feet with 2 turns (QC: 5 1 Step (curb) (QC): 4 (CGA) 4 Steps (QC): 4 (CGA) 12 Steps (QC): 88 Picking up an Object (QC): 88 OT Nursing Home Goals Nursing Home Goals Time Frame: Jun 01, 2021 Eating (QC): 5 (met) Oral Hygiene (QC): 5 (met) Shower/Bathe Self (QC): 4 (met) Upper Body Dressing (QC): 5 (not met) Lower Body Dressing (QC): 4 (not met) On/Off Footwear (QC): 4 (met) Toileting Hygiene (QC): 4 (met) Toilet/Commode Transfer (QC): 4 (SBA) Comprehension(FIM): 6 Expression (FIM): 6 Social Interaction(FIM): 6 Problem Solving(FIM): 6 Memory(FIM): 6 Additional Goals: 1-Demonstrate ADL Tasks, 2-Verbalize Understanding, 3-ImproveStrength/Jose Carlos 1=Demonstrate adherence to instructed precautions during ADL tasks. 2=Patient will verbalize/demonstrate understanding of assistive devices/modifications for ADL. 3=Patient will improve strength/tolerance for activity to enable patient to perf orm ADL's. Speech Nursing Home Goals Nursing Home Goals Patient will maintain adequate nutrition/hydration via safe effective swallow function. Comprehension: 6 Expression: 6 Social Interaction: 6 Problem Solvin Memory: 6 FELIZ GRIMM PT May 24, 2021 11:00
[2021-05-24 13:40] VITALS: BP 116/58
== END 2021-05-24 13:47 | disposition home or self-care (01) | DRG 57 ==
PROVIDERS: ADMIT Internal Medicine; ATTEND Internal Medicine
DX: I69.354 Hemiplegia and hemiparesis following cerebral infarction affecting left non-dominant side (principal); R41.4 Neurologic neglect syndrome; I69.392 Facial weakness following cerebral infarction; I69.398 Other sequelae of cerebral infarction; I69.391 Dysphagia following cerebral infarction; H54.61 Unqualified visual loss, right eye, normal vision left eye; R13.10 Dysphagia, unspecified; R33.9 Retention of urine, unspecified; E78.5 Hyperlipidemia, unspecified; E78.00 Pure hypercholesterolemia, unspecified; I10 Essential (primary) hypertension; K21.9 Gastro-esophageal reflux disease without esophagitis; K44.9 Diaphragmatic hernia without obstruction or gangrene; M19.91 Primary osteoarthritis, unspecified site; L60.0 Ingrowing nail; B35.1 Tinea unguium; G62.9 Polyneuropathy, unspecified; K59.00 Constipation, unspecified; L98.9 Disorder of the skin and subcutaneous tissue, unspecified; I25.10 Atherosclerotic heart disease of native coronary artery without angina pectoris; Z79.82 Long term (current) use of aspirin; Z79.52 Long term (current) use of systemic steroids; Z87.891 Personal history of nicotine dependence
CPT/HCPCS: 36415; 80053; 81000; 85025; 87088

== ENCOUNTER 2021-05-03 07:56 | Day surgery (SDC) | payer MEDICARE ==
[~2021-05-03 07:56] MED LIST changes: -ALPRAZolam 0.25 MG (XANAX) TAB PO PRN; -BISACODYL 10 MG SUPP (DULCOLAX) PR PRN; +CALC-250 PO; -CALCIUM CARBONATE 500 MG (TUMS) TAB.CHEW PO PRN; -DOCUSATE SODIUM 100 MG (COLACE) CAP PO PRN; -DOCUSATE SODIUM 100 MG (COLACE) CAP PO SCH; -FLEET ENEMA ADULT 1 EA BTL PR PRN; +GARL500C2 PO; -LACTULOSE SYRUP 10GM/15ML (ENULOSE) 30ML UDC PO PRN; -LOPERAMIDE 2 MG (IMODIUM) TABLET PO PRN; -NALOXONE 0.4 MG/ML 1 ML (NARCAN) VIAL IV PRN; +SULF1TAB38 PO; +ZINC10LO4 PO; -diphenhydrAMINE 25 MG TAB (BENADRYL) PO PRN; -guaiFENesin/CODEINE (ROBITUSSIN AC) 10ML UDC PO PRN; -polyethylene glycoL POWDER 17 GM (MIRALAX) PACK PO SCH
[2021-05-03] MEDS ORDERED: LIDOCAINE UROJET 2% GEL 10 ML PKG ONE (09:27)
--- NOTE | 2021-05-03 11:09 | Progress Note-Pre Operative ---
Pre-Operative Progress Note H&P Reviewed The H&P was reviewed, patient examined and no changes noted. Date Seen by Provider: May 03, 2021 Time Seen by Provider: 11:09 Date H&P Reviewed: May 03, 2021 Time H&P Reviewed: 11:09 Pre-Operative Diagnosis: URINE RETENTION QING WAN MD May 03, 2021 11:09
--- NOTE | 2021-05-03 11:10 | Progress Note-Post Operative ---
Post-Operative Progess Note Surgeon (s)/Insight Leader (s) Surgeon QING WAN MD Insight Leader: NONE Pre-Operative Diagnosis URINE RETENTION Post-Operative Diagnosis SAME Procedure & Operative Findings Date of Procedure 05/03/21 Procedure Performed/Findings CYSTOSCOPY Anesthesia Type LOCAL Estimated Blood Loss Estimated blood loss (mL): NONE Specimens/Packing Specimens Removed NONE Packing: NONE QING WAN MD May 03, 2021 11:10
--- NOTE | 2021-05-03 13:44 | OPERATIVE REPORT ---
DATE OF SERVICE: 05/03/2021 PREOPERATIVE DIAGNOSIS: Urinary retention. POSTOPERATIVE DIAGNOSIS: Urinary retention. OPERATION PERFORMED: Cystoscopy. SURGEON: Navdeep Wan MD ANESTHESIA: Local. COMPLICATIONS: None. DESCRIPTION OF PROCEDURE: With the patient supine in his bed after removing the Samano catheter, the genitalia were prepped and draped in the usual sterile fashion. Urethra was infiltrated with lidocaine jelly. Penile clamp was applied. This was then removed and a flexible cystoscope was introduced under vision. Anterior urethra was normal. The prostate was mildly enlarged with mild bladder neck obstruction. Bladder showed some trabeculations. Ureteric orifices normal with clear effluxes. No foreign body, bladder tumor or stone visualized. Cystoscopy was confirmed in an antegrade fashion and the cystoscope was removed. Examination of the patient revealed external genitalia of adequate male configuration and uncircumcised. Testes down the scrotum and decrease in size. Rectal exam flat, 1+ benign, nontender elastic prostate. PLAN: Trial of voiding straight catheterization if unable to void or postvoid residual greater than 350 on the third catheterization, reinserted the Samano catheter and increased the Flomax to b.i.d. Plan was fully explained to the patient. Job ID: [id number] DocumentID: [id number] Dictated Date: 05/03/2021 11:28:48 Cloth Mender Date: 05/03/2021 13:43:32 Dictated By: NAVDEEP WAN MD
== END 2021-05-03 13:10 | disposition still patient (30) ==
LOC: SDC 07:56
PROVIDERS: ATTEND Urology
DX: N32.0 Bladder-neck obstruction (principal); R33.9 Retention of urine, unspecified; N40.0 Benign prostatic hyperplasia without lower urinary tract symptoms; Z96.0 Presence of urogenital implants

== ENCOUNTER 2021-07-06 11:45 | Outpatient (RCR) | payer MEDICARE ==
[~2021-07-06 11:45] MED LIST changes: +ACET325T49 PO; +ALPR.25T PO; +DICL100G13 TOP; +FAMO20TA5 PO; +MIRT-47 PO; +PANT40TA52 PO; +POTA-160 PO; +TMSL.4C PO
--- NOTE | 2021-08-07 08:52 | 30 Day Event Recorder ---
30-DAY EVENT RECORDER 30-DAY EVENT RECORDER DATE OF PROCEDURE: 07/06/2021-08/04/2021. INDICATION: Personal history of transient ischemic attack/cerebrovascular accident. PROCEDURE: A 30-day event recorder was obtained for a total of 28 days and 16 hours. 40 rhythm strips were presented for review. The study quality is adequate. RESULTS: 1. Baseline sinus rhythm with an average heart rate of 73 bpm, ranging from 50- 161 bpm with occasional, isolated premature supraventricular complexes representing 1% of the total recording time, one 22 beat episode of atrial tachycardia at a heart rate of 161 bpm, rare, isolated premature ventricular complexes representing less than 1% of the total recording time and one 9 beat episode of accelerated idioventricular rhythm at a heart rate of 103 bpm. 2. There was no definitive evidence of atrial fibrillation. 3. There were no pauses exceeding 2 seconds in duration. 4. There were 3 patient events that correlated to sinus rhythm with heart rates ranging from 72-75 bpm with no arrhythmias. IMPRESSION: 1. This is a 30-day event recorder that was obtained for total of 28 days and 16 hours. 2. Baseline sinus rhythm with an average heart rate of 73 bpm, ranging from 50- 161 bpm with occasional, isolated premature supraventricular complexes representing 1% of the total recording time, one 22 beat episode of atrial tachycardia at a heart rate of 161 bpm, and rare, isolated premature ventricular complexes representing less than 1% of the total recording time and one 9 beat episode of accelerated idioventricular rhythm at a heart rate of 103 bpm. 3. There was no definitive evidence of atrial fibrillation. 4. There were 3 patient events that correlated to sinus rhythm with heart rates ranging from 72-75 bpm with no arrhythmias. Certain portions of this document may have been dictated utilizing voice recognition technology. Inherent to this technology, typographical and grammatical errors may exist. As much as I am diligent to identify and correct these mistakes, some errors may remain in the document. JUAN CARLOS CHACKO JR, MD Aug 07, 2021 08:52
== END 2021-09-21 | disposition home or self-care (01) ==
LOC: CARD 11:45
PROVIDERS: ATTEND Internal Medicine Cardiovascular Disease
DX: Z86.73 Personal history of transient ischemic attack (TIA), and cerebral infarction without residual deficits (principal)

== ENCOUNTER 2021-07-19 12:07 | Emergency (ER) | payer MEDICARE ==
[~2021-07-19] VITALS: Ht 172 cm; Wt 77.0 kg
[~2021-07-19 12:07] MED LIST changes: -POTA-160 PO; +POTA10TA6 PO
[2021-07-19 12:11] VITALS: BP 137/80
--- NOTE | 2021-07-19 12:25 | ED General ---
General Stated Complaint: VOMITING;FAINTING Source of Information: Patient Exam Limitations: No Limitations History of Present Illness Date Seen by Provider: Jul 19, 2021 Time Seen by Provider: 12:19 Initial Comments To ER by private vehicle from home with reports of an episode of vomiting and fainting. He was in the bathroom with a heater on when his was changing some dressings on his feet they were being soaked in some hot water. He states that he got dizzy and lightheaded and then passed out. His who is at the bedside and very anxious states that his eyes rolled back into his head and she assumes this must mean that he has had a stroke. He has no new deficit other than the dizziness which is better if he lays still. At this time he feels a little dizzy but otherwise okay. History of CVA with resultant left-sided weakness. This occurred during a right carotid endarterectomy in [facility] in April of this year. Timing/Duration: 1-2 Days Severity: Moderate Associated Systoms: Nausea/Vomiting Allergies and Home Medications Allergies Coded Allergies: aloe vera (Verified Allergy, Unknown, 05/01/21) cephalexin (Verified Allergy, Unknown, 05/01/21) influenza virus vaccine [id number] (36 mos,up) (Verified Allergy, Unknown, 05/01/21) Patient Home Medication List Home Medication List Reviewed: Yes ALPRAZolam (Xanax Tablet) 0.25 Mg Tab, 0.25 MG PO Q8H PRN for ANXIETY Prescribed by: GUILLERMO CABELLO on 05/23/21 1224 Acetaminophen (Acetaminophen) 325 Mg Tablet, 650 MG PO Q4H PRN for PAIN-MILD (1- 4) Prescribed by: GUILLERMO CABELLO on 05/23/21 1223 Amlodipine Besylate (Amlodipine Besylate) 5 Mg Tablet, 5 MG PO DAILY Prescribed by: GUILLERMO CABELLO on 05/23/21 1223 Aspirin (Aspirin EC) 81 Mg Tablet.dr, 81 MG PO DAILY Prescribed by: GUILLERMO CABELLO on 05/23/21 1223 Atorvastatin Calcium (Atorvastatin Calcium) 80 Mg Tablet, 80 MG PO HS Prescribed by: GUILLERMO CABELLO on 05/23/21 1223 Cholecalciferol (Vitamin D3) (Vitamin D3) 125 Mcg Tablet, 125 MCG PO DAILY, (Reported) Entered as Reported by: GUEVARA MONTANO on 05/02/21 1510 Clopidogrel Bisulfate (Plavix) 75 Mg Tablet, 75 MG PO DAILY Prescribed by: GUILLERMO CABELLO on 05/23/21 1223 Diclofenac Sodium (Diclofenac Sodium) 100 Gm Gel..gram., 1 GM TOP QID PRN for Pain Prescribed by: GUILLERMO CABELLO on 05/23/21 1223 Famotidine (Famotidine) 20 Mg Tablet, 20 MG PO BID PRN for INDIGESTION Prescribed by: GUILLERMO CABELLO on 05/23/21 1223 Garlic (Garlic) 500 Mg Capsule, 500 MG PO DAILY, (Reported) Entered as Reported by: GUEVARA MONTANO on 05/02/21 151 L. Acidophilus/L.bulgaricus (Lactobacillus Tablet) 1 Each Tablet, 1 EACH PO DAILY, (Reported) Entered as Reported by: GUEVARA MONTANO on 05/01/21 1156 Mirtazapine (Mirtazapine) 15 Mg Tab.rapdis, 7.5 MG PO HS Prescribed by: GUILLERMO CABELLO on 05/23/21 1223 Omega3,5,6,7,9 No.1/[place] Oil (Complete [place] Softgel) 1 Each Capsule, 1 EACH PO DAILY, (Reported) Entered as Reported by: GUEVARA MONTANO on 05/01/21 1156 Pantoprazole Sodium (Pantoprazole Sodium) 40 Mg Tablet.dr, 40 MG PO BID Prescribed by: GUILLERMO CABELLO on 05/23/21 1223 Potassium Chloride (Klor-Con 10) 10 Meq Tablet.er, 10 MEQ PO DAILY@0700 Prescribed by: GUILLERMO CABELOL on 05/23/21 1223 Tamsulosin HCl (Flomax) 0.4 Mg Cap, 0.4 MG PO DAILY@1800 Prescribed by: GUILLERMO CABELLO on 05/23/21 1223 Zinc Gluconate (Zinc) 10 Mg Lozenge, 10 MG PO DAILY, (Reported) Entered as Reported by: GUEVARA MONTANO on 05/02/21 151 Review of Systems Review of Systems Constitutional: see HPI EENTM: see HPI Respiratory: no symptoms reported Cardiovascular: no symptoms reported Genitourinary: no symptoms reported Musculoskeletal: no symptoms reported Skin: no symptoms reported Psychiatric/Neurological: No Symptoms Reported Hematologic/Lymphatic: No Symptoms Reported Immunological/Allergic: no symptoms reported Past Odicyxd-Spkypt-Lauehm Hx Past Medical History Vascular Surgery High Cholesterol, Hypertension Stroke, TIA Prostate Problems Gastroesophageal Reflux Arthritis Physical Exam Vital Signs Vital Signs - First Documented 07/19/21 12:11 Temp 36.0 Pulse 78 Resp 18 B/P (MAP) 137/80 (99) Pulse Ox 97 Capillary Refill : Height, Weight, BMI Height: '" Weight: lbs. oz. kg; 27.93 BMI Method: General Appearance: No Apparent Distress, WD/WN Neck: Full Range of Motion, Normal Inspection Respiratory: No Accessory Muscle Use, No Respiratory Distress Cardiovascular: Regular Rate, Rhythm, Normal Peripheral Pulses Gastrointestinal: Normal Bowel Sounds, Non Tender, Soft Extremity: Normal Capillary Refill, Normal Inspection, Other (Tremors of the left arm and numbness of the left leg he states is chronic after his stroke. He did not notice any new weakness or numbness after today's episode of syncope. He still has some nausea.) Neurologic/Psychiatric: Alert, Oriented x3 Skin: Normal Color, Warm/Dry Progress/Results/Core Measures Suspected Sepsis SIRS Temperature: Pulse: Respiratory Rate: Laboratory Tests 07/19/21 12:20: White Blood Count 7.1 Blood Pressure / Mean: Laboratory Tests 07/19/21 12:20: Creatinine 1.11, Platelet Count 264, Total Bilirubin 0.5 Results/Orders Lab Results Laboratory Tests Test 07/19/21 12:20 07/19/21 14:14 Range/Units White Blood Count 7.1 4.3-11.0 10^3/uL Red Blood Count 4.44 4.30-5.52 10^6/uL Hemoglobin 12.7 L 13.3-17.7 g/dL Hematocrit 40 40-54 % Mean Corpuscular Volume 89 80-99 fL Mean Corpuscular Hemoglobin 29 25-34 pg Mean Corpuscular Hemoglobin Concent 32 32-36 g/dL Red Cell Distribution Width 14.1 10.0-14.5 % Platelet Count 264 130-400 10^3/uL Mean Platelet Volume 9.9 9.0-12.2 fL Immature Granulocyte % (Auto) 0 % Neutrophils (%) (Auto) 62 42-75 % Lymphocytes (%) (Auto) 27 12-44 % Monocytes (%) (Auto) 7 0-12 % Eosinophils (%) (Auto) 2 0-10 % Basophils (%) (Auto) 1 0-10 % Neutrophils # (Auto) 4.4 1.8-7.8 10^3/uL Lymphocytes # (Auto) 1.9 1.0-4.0 10^3/uL Monocytes # (Auto) 0.5 0.0-1.0 10^3/uL Eosinophils # (Auto) 0.1 0.0-0.3 10^3/uL Basophils # (Auto) 0.1 0.0-0.1 10^3/uL Immature Granulocyte # (Auto) 0.0 0.0-0.1 10^3/uL Sodium Level 143 135-145 MMOL/L Potassium Level 3.6 3.6-5.0 MMOL/L Chloride Level 106 98-107 MMOL/L Carbon Dioxide Level 26 21-32 MMOL/L Anion Gap 11 5-14 MMOL/L Blood Urea Nitrogen 13 7-18 MG/DL Creatinine 1.11 0.60-1.30 MG/DL Estimat Glomerular Filtration Rate 63 BUN/Creatinine Ratio 12 Glucose Level 139 H 70-105 MG/DL Calcium Level 9.5 8.5-10.1 MG/DL Corrected Calcium 9.4 8.5-10.1 MG/DL Total Bilirubin 0.5 0.1-1.0 MG/DL Aspartate Amino Transf (AST/SGOT) 24 5-34 U/L Alanine Aminotransferase (ALT/SGPT) 34 0-55 U/L Alkaline Phosphatase 73 40-136 U/L Total Protein 7.5 6.4-8.2 GM/DL Albumin 4.1 3.2-4.5 GM/DL Urine Color YELLOW Urine Clarity CLEAR Urine pH 7.5 5-9 Urine Specific [place] <=1.005 1.016-1.022 Urine Protein NEGATIVE NEGATIVE Urine Glucose (UA) NEGATIVE NEGATIVE Urine Ketones NEGATIVE NEGATIVE Urine Nitrite NEGATIVE NEGATIVE Urine Bilirubin NEGATIVE NEGATIVE Urine Urobilinogen 0.2 < = 1.0 MG/DL Urine Leukocyte Esterase NEGATIVE NEGATIVE Urine RBC (Auto) NEGATIVE NEGATIVE Urine RBC NONE /HPF Urine WBC RARE /HPF Urine Squamous Epithelial Cells NONE /HPF Urine Crystals NONE /LPF Urine Bacteria NEGATIVE /HPF Urine Casts NONE /LPF Urine Mucus NEGATIVE /LPF Urine Culture Indicated NO My Orders Orders - MARGARET RIZVI MILITARY NURSE Cbc With Automated Diff (07/19/21 12:17) Comprehensive Metabolic Panel (07/19/21 12:17) Ua Culture If Indicated (07/19/21 12:17) Ed Iv/Invasive Line Start (07/19/21 12:17) Ekg Tracing (07/19/21 12:17) Ct Head Wo (07/19/21 12:17) Meclizine Tablet (Antivert Tablet) (07/19/21 12:30) Ondansetron Injection (Zofran Injectio (07/19/21 12:30) Ct Angio Head/Neck (07/19/21 13:06) Iohexol Injection (Omnipaque 350 Mg/Ml 1 (07/19/21 13:30) Received Contrast (Hold Metformin- Contr (07/19/21 13:30) Ns (Ivpb) (Sodium Chloride 0.9% Ivpb Bag (07/19/21 13:30) Medications Given in ED Current Medications Medications Dose Ordered Sig/Otilio Route Start Time Stop Time Status Last Admin Dose Admin Iohexol 75 ml ONCE ONCE IV 07/19/21 13:30 07/19/21 13:35 DC 07/19/21 13:43 75 ML Meclizine HCl 25 mg ONCE ONCE PO 07/19/21 12:30 07/19/21 12:31 DC 07/19/21 12:31 25 MG Ondansetron HCl 8 mg ONCE ONCE IVP 07/19/21 12:30 07/19/21 12:31 DC 07/19/21 12:31 8 MG Sodium Chloride 100 ml ONCE ONCE IV 07/19/21 13:30 07/19/21 13:35 DC 07/19/21 13:43 100 ML Vital Signs/I&O 07/19/21 12:11 Temp 36.0 Pulse 78 Resp 18 B/P (MAP) 137/80 (99) Pulse Ox 97 Capillary Refill : Departure Communication (Admissions) Family Conversation NAME: NIRMALA SEE MED REC#: [id number] PT STATUS: REG ER : 1940 PHYSICIAN: MARGARET RIZVI APRN ADMIT DATE: 07/19/21/ER Signed Date of Exam:07/19/21 CT ANGIO HEAD/NECK PROCEDURE: CT angiography of the head and CT angiography of the neck with and without contrast. TECHNIQUE: Contiguous noncontrast images were obtained from the skull base through the vertex. After intravenous contrast administration, helical CT angiography of the neck was performed. Source data was reformatted into 3D MIP projections. Delayed post contrast acquisition was also obtained. Auto Exposure Controls were utilized during the CT exam to meet ALARA standards for radiation dose reduction. INDICATION: Dizziness. History of stroke. COMPARISON: CT head of 07/11/2021 FINDINGS: CTA NECK Aorta: Aortic arch is normal, with standard three vessel branching pattern. Anterior Circulation: The origin of the bilateral common carotid arteries are patent. No stenosis of the common carotid arteries in the neck. No significant stenosis of the internal carotid arteries per NASCET criteria. Carotid endarterectomy has been performed on the right. The cervical segments of the bilateral ICAs are patent. The proximal external carotid arteries are patent and without significant stenosis. Posterior Circulation: Origins of the bilateral vertebral arteries are normal. Vertebral arteries are co-dominant. The proximal extraousseous, intrasosseous, and distal extraosseous segments of the vertebral arteries are patent without dissection or stenosis. Non-vascular: No cervical lymphadenopathy. The airway is patent. No evidence of mucosal-based mass lesion in the pharynx. Thyroid is normal. Salivary glands are normal. No concerning lesion in the cervical spine. CTA HEAD Anterior Circulation: The distal internal carotid arteries are patent. The bilateral M1 and M2 segments of the middle cerebral arteries are patent and without stenosis. The bilateral M3 and M4 segments are symmetric in size and number. The anterior cerebral arteries are patent and without stenosis. Anterior communicating artery is patent. No saccular aneurysm in the anterior circulation. Posterior Circulation: The bilateral intracranial segments of the vertebral arteries are patent. The basilar artery is patent and without stenosis. 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 Conventional origin of left DIE CUTTER APPRENTICE. Both of the posterior cerebral arteries are patent. Superior cerebellar arteries are normal centrally. Bilateral posterior communicating arteries are patent and without aneurysm. No saccular aneurysm in the posterior circulation. Post Contrast Head: No venous sinuses are patent. No pathologic enhancement on delayed phase imaging IMPRESSION: 1. No intra-cranial major arterial occlusion, significant stenosis or aneurysm. 2. No arterial occlusion or stenosis in the major neck arteries. Right carotid endarterectomy. 3. Dural venous sinuses are patent. Dictated by: Dictated on workstation # [id number] Dict: 07/19/21 1354 Trans: 07/19/21 1403 [facility] [id number] Interpreted by: FRANSISCO PARSONS MD Electronically signed by: FRANSISCO PARSONS MD 07/19/21 1404 His EKG shows a rate of 79 sinus no ectopy no ST segment changes 1316-his dizziness is gone. His nausea is improved but not gone. He remains alert talkative and very pleasant in no distress. Impression Primary Impression: Dizziness Disposition: 01 HOME, SELF-CARE Condition: Stable Departure-Patient Inst. Decision time for Depature: 15:35 Referrals: GUILLERMO CABELLO DO (PCP) Primary Care Physician Patient Instructions: Dizziness, Adult ED MARGARET RIZVI APRN Jul 19, 2021 12:25
[2021-07-19] MEDS ORDERED: ONDANSETRON 4 MG/2 ML (SDV) Z0FRAN IVP ONE (12:30)
[2021-07-19] MEDS ORDERED: MECLIZINE 25 MG (ANTIVERT) TAB PO ONE (12:30)
[2021-07-19 12:33] LABS: BASOPHILS # (AUTO) 0.1 10^3/uL (0.0-0.1); BASOPHILS % (AUTO) 1 % (0-10); EOSINOPHILS # (AUTO) 0.1 10^3/uL (0.0-0.3); EOSINOPHILS % (AUTO) 2 % (0-10); HEMATOCRIT 40 % (40-54); HEMOGLOBIN 12.7 g/dL (13.3-17.7); LYMPHOCYTES # (AUTO) 1.9 10^3/uL (1.0-4.0); LYMPHOCYTES % (AUTO) 27 % (12-44); MEAN CORPUSCULAR HEMOGLOBIN 29 pg (25-34); MEAN CORPUSCULAR HGB CONC 32 g/dL (32-36); MEAN CORPUSCULAR VOLUME 89 fL (80-99); MEAN PLATELET VOLUME 9.9 fL (9.0-12.2); MONOCYTES # (AUTO) 0.5 10^3/uL (0.0-1.0); MONOCYTES % (AUTO) 7 % (0-12); NEUTROPHILS # (AUTO) 4.4 10^3/uL (1.8-7.8); NEUTROPHILS % (AUTO) 62 % (42-75); PLATELET COUNT 264 10^3/uL (130-400); WHITE BLOOD COUNT 7.1 10^3/uL (4.3-11.0)
[2021-07-19 12:46] LABS: ALBUMIN 4.1 GM/DL (3.2-4.5); POTASSIUM 3.6 MMOL/L (3.6-5.0)
[2021-07-19 12:48] LABS: CALCIUM 9.5 MG/DL (8.5-10.1)
[2021-07-19 12:49] LABS: TOTAL PROTEIN 7.5 GM/DL (6.4-8.2)
[2021-07-19 12:51] LABS: BILIRUBIN,TOTAL 0.5 MG/DL (0.1-1.0)
[2021-07-19 12:52] LABS: CREATININE SERUM 1.11 MG/DL (0.60-1.30)
--- NOTE | 2021-07-19 12:56 | Diagnostic Imaging Report ---
INDICATION: Nausea and vomiting and dizziness. TECHNIQUE: Multiple contiguous axial images were obtained through the brain without the use of intravenous contrast. Auto Exposure Controls were utilized during the CT exam to meet ALARA standards for radiation dose reduction. COMPARISON: There is no prior study for comparison. FINDINGS: There are diffuse atrophic changes. There is no hemorrhage or subdural or epidural collection. Ventricles are normal in size for age. There are multiple low-density areas in the right parieto-occipital regions, compatible with infarcts which may be chronic or subacute. There are underlying chronic ischemic changes in the deep white matter, right worse than left. Calvarial windows appear unremarkable. IMPRESSION: There is no acute hemorrhage. There are atrophic changes with multiple right hemispheric infarcts posteriorly which appear to be either subacute or chronic. Underlying chronic changes are noted in the deep white matter compatible with chronic ischemia. MRI could provide additional detail if clinically warranted. Dictated by: Dictated on workstation # [id number]
[2021-07-19] MEDS ORDERED: IOHEXOL 350 MG/ML 100 ML (OMNIPAQUE 350) VIAL IV ONE (13:30)
[2021-07-19] MEDS ORDERED: HOLD METFORMIN - RECEIVED CONTRAST 20 ML VIAL IV SCH (13:30)
[2021-07-19] MEDS ORDERED: NS 100 ML (IVPB) BAG IV ONE (13:30)
--- NOTE | 2021-07-19 14:04 | Diagnostic Imaging Report ---
PROCEDURE: CT angiography of the head and CT angiography of the neck with and without contrast. TECHNIQUE: Contiguous noncontrast images were obtained from the skull base through the vertex. After intravenous contrast administration, helical CT angiography of the neck was performed. Source data was reformatted into 3D MIP projections. Delayed post contrast acquisition was also obtained. Auto Exposure Controls were utilized during the CT exam to meet ALARA standards for radiation dose reduction. INDICATION: Dizziness. History of stroke. COMPARISON: CT head of 07/11/2021 FINDINGS: CTA NECK Aorta: Aortic arch is normal, with standard three vessel branching pattern. Anterior Circulation: The origin of the bilateral common carotid arteries are patent. No stenosis of the common carotid arteries in the neck. No significant stenosis of the internal carotid arteries per NASCET criteria. Carotid endarterectomy has been performed on the right. The cervical segments of the bilateral ICAs are patent. The proximal external carotid arteries are patent and without significant stenosis. Posterior Circulation: Origins of the bilateral vertebral arteries are normal. Vertebral arteries are co-dominant. The proximal extraousseous, intrasosseous, and distal extraosseous segments of the vertebral arteries are patent without dissection or stenosis. Non-vascular: No cervical lymphadenopathy. The airway is patent. No evidence of mucosal-based mass lesion in the pharynx. Thyroid is normal. Salivary glands are normal. No concerning lesion in the cervical spine. CTA HEAD Anterior Circulation: The distal internal carotid arteries are patent. The bilateral M1 and M2 segments of the middle cerebral arteries are patent and without stenosis. The bilateral M3 and M4 segments are symmetric in size and number. The anterior cerebral arteries are patent and without stenosis. Anterior communicating artery is patent. No saccular aneurysm in the anterior circulation. Posterior Circulation: The bilateral intracranial segments of the vertebral arteries are patent. The basilar artery is patent and without stenosis. origin of the right [place]. Conventional origin of left [place]. Both of the posterior cerebral arteries are patent. Superior cerebellar arteries are normal centrally. Bilateral posterior communicating arteries are patent and without aneurysm. No saccular aneurysm in the posterior circulation. Post Contrast Head: No venous sinuses are patent. No pathologic enhancement on delayed phase imaging IMPRESSION: 1. No intra-cranial major arterial occlusion, significant stenosis or aneurysm. 2. No arterial occlusion or stenosis in the major neck arteries. Right carotid endarterectomy. 3. Dural venous sinuses are patent. Dictated by: Dictated on workstation # [id number]
[2021-07-19 14:52] LABS: BILIRUBIN,URINE NEGATIVE (NEGATIVE); CLARITY,URINE CLEAR; COLOR,URINE YELLOW; GLUCOSE, URINE (UA) NEGATIVE (NEGATIVE); KETONES,URINE NEGATIVE (NEGATIVE); LEUKOCYTE ESTERASE ,URINE NEGATIVE (NEGATIVE); NITRITE,URINE NEGATIVE (NEGATIVE); PH,URINE 7.5 (5-9); PROTEIN,URINE NEGATIVE (NEGATIVE)
[2021-07-19 15:13] LABS: BACTERIA,URINE NEGATIVE /HPF; WBC,URINE RARE /HPF
[2021-07-19] MEDS ORDERED: ACETAMINOPHEN 500 MG TAB (TYLENOL) ONE (15:38)
[2021-07-19] MEDS ORDERED: ACETAMINOPHEN 500 MG TAB (TYLENOL) PO ONE (15:45)
== END 2021-07-19 15:44 | disposition home or self-care (01) ==
LOC: EDUNIT# 12:07 → ER 12:08
DX: R42 Dizziness and giddiness (principal); I10 Essential (primary) hypertension; K21.9 Gastro-esophageal reflux disease without esophagitis; E78.00 Pure hypercholesterolemia, unspecified; Z86.73 Personal history of transient ischemic attack (TIA), and cerebral infarction without residual deficits; Z79.82 Long term (current) use of aspirin; Z79.899 Other long term (current) drug therapy; Z79.01 Long term (current) use of anticoagulants
CPT/HCPCS: 36415; 70450; 70496; 70498; 80053; 81000; 85025; 93005

== ENCOUNTER → 2021-08-27 | Outpatient (RCR) | payer MEDICARE ==
[~2021-08-27] MED LIST changes: +POTA-160 PO; -POTA10TA6 PO
== END | disposition home or self-care (01) ==
PROVIDERS: ATTEND Internal Medicine
DX: I97.821 Postprocedural cerebrovascular infarction following other surgery (principal); I63.511 Cerebral infarction due to unspecified occlusion or stenosis of right middle cerebral artery; G81.94 Hemiplegia, unspecified affecting left nondominant side

== ENCOUNTER 2021-09-18 14:33 | Outpatient (RCR) | payer MEDICARE | END 2021-09-21 | disposition home or self-care (01) | PROVIDERS: ATTEND Internal Medicine | DX: I97.821 Postprocedural cerebrovascular infarction following other surgery (principal); I63.511 Cerebral infarction due to unspecified occlusion or stenosis of right middle cerebral artery; G81.94 Hemiplegia, unspecified affecting left nondominant side; H54.61 Unqualified visual loss, right eye, normal vision left eye; R41.4 Neurologic neglect syndrome ==

== ENCOUNTER → 2021-09-28 | Outpatient (CLI) | payer MEDICARE ==
--- NOTE | 2021-09-28 13:01 | Diagnostic Imaging Report ---
EXAMINATION: CT abdomen and pelvis without contrast. TECHNIQUE: Multiple contiguous axial images were obtained through the abdomen and pelvis without the use of intravenous contrast. All CT scans use one or more of the following dose optimizing techniques: automated exposure control, MA and/or KvP adjustment based on patient size and exam type or iterative reconstruction. HISTORY: PROSTATE CANCER COMPARISON: None available. FINDINGS: Lung bases: The lung bases are clear. Solid organs: 1.0 cm inferior right hepatic cyst. The liver is otherwise unremarkable. The gallbladder is surgically absent. There is no biliary ductal dilation. Pancreas is normal. Spleen is normal. Adrenal glands are normal. There is a nonobstructing 0.2 cm right renal calculus without hydronephrosis. There are multiple stones seen within the dependent urinary bladder near the ureterovesicular junctions measuring up to 0.7 cm on the right. Bowel: The stomach and small bowel are normal without obstruction. The colon and appendix are normal. Peritoneum: There is no intraperitoneal free fluid or free air. No suspicious lymphadenopathy. Vasculature: Calcification of the aorta without aneurysm. Musculoskeletal: No suspicious osseous lesion or compression fracture. Pelvis: The prostate gland is normal. Multiple stones within the dependent urinary bladder as discussed above. IMPRESSION: 1. Multiple stones within the dependent urinary bladder near the ureterovesicular junctions measuring up to 0.7 cm. There is no hydronephrosis. This may represent recently passed stones. 2. No findings of metastatic disease within the abdomen or pelvis. Dictated by: Dictated on workstation # [id number]
--- NOTE | 2021-09-28 15:46 | Diagnostic Imaging Report ---
INDICATION: Prostate cancer COMPARISON: CT abdomen pelvis of 09/28/2021 TECHNIQUE: Anterior and posterior scintigraphic images of the whole body were obtained after the intravenous injection of 27.0 mCi of Tc-99m MDP. FINDINGS: There is normal distribution of tracer throughout the skeleton. No abnormal focal area of increased or decreased tracer accumulation is identified with suggest metastatic disease. There are foci of degenerative uptake at the level the knees and shoulders. Normal activity within the kidneys and urinary bladder is identified. IMPRESSION: Normal exam without skeletal metastases. Dictated by: Dictated on workstation # [id number]
== END ==
LOC: CARD 12:00
PROVIDERS: ATTEND Urology
DX: C61 Malignant neoplasm of prostate (principal); N20.9 Urinary calculus, unspecified
CPT/HCPCS: 74176; 78306; A9503

== ENCOUNTER 2021-10-08 11:44 | Outpatient (RCR) | payer MEDICARE ==
[2021-10-08 14:19] LABS: CREATININE SERUM 0.98 MG/DL (0.60-1.30)
== END 2021-10-22 | disposition home or self-care (01) ==
LOC: ONC 11:44
PROVIDERS: ATTEND Radiology Radiation Oncology
DX: C61 Malignant neoplasm of prostate (principal); E78.00 Pure hypercholesterolemia, unspecified; K21.9 Gastro-esophageal reflux disease without esophagitis; I10 Essential (primary) hypertension; Z98.890 Other specified postprocedural states
CPT/HCPCS: 82565; 84153; 84520; G0463; 99204

== ENCOUNTER 2021-10-17 13:47 | Outpatient (RCR) | payer MEDICARE | END 2021-10-22 | disposition home or self-care (01) | PROVIDERS: ATTEND Internal Medicine | DX: I97.821 Postprocedural cerebrovascular infarction following other surgery (principal); I63.511 Cerebral infarction due to unspecified occlusion or stenosis of right middle cerebral artery; G81.94 Hemiplegia, unspecified affecting left nondominant side; H54.61 Unqualified visual loss, right eye, normal vision left eye; R41.4 Neurologic neglect syndrome ==

== ENCOUNTER 2021-11-03 11:19 | Emergency (ER) | payer MEDICARE ==
[~2021-11-03] VITALS: Ht 170.2 cm; Wt 75.7 kg
[2021-11-03] MEDS ORDERED: NS IV 500 ML 500 ML IV ONE (11:45)
[2021-11-03 11:47] LABS: BASOPHILS % (AUTO) 0 % (0-10); EOSINOPHILS % (AUTO) 0 % (0-10); HEMATOCRIT 37 % (40-54); LYMPHOCYTES # (AUTO) 1.4 10^3/uL (1.0-4.0); LYMPHOCYTES % (AUTO) 34 % (12-44); MEAN CORPUSCULAR HEMOGLOBIN 29 pg (25-34); MEAN CORPUSCULAR HGB CONC 32 g/dL (32-36); MEAN CORPUSCULAR VOLUME 91 fL (80-99); MEAN PLATELET VOLUME 9.7 fL (9.0-12.2); MONOCYTES # (AUTO) 0.4 10^3/uL (0.0-1.0); MONOCYTES % (AUTO) 11 % (0-12); NEUTROPHILS # (AUTO) 2.2 10^3/uL (1.8-7.8); NEUTROPHILS % (AUTO) 54 % (42-75); PLATELET COUNT 185 10^3/uL (130-400)
--- NOTE | 2021-11-03 11:50 | ED Syncope ---
General Chief Complaint: Dizziness/Syncope Stated Complaint: SYNCOPE,VOMITTING History of Present Illness Date Seen by Provider: Nov 03, 2021 Time Seen by Provider: 11:20 Initial Comments 81-year-old male brought by EMS after a syncopal episode at home that was witnessed by his and sister, he was assisted to a chair. He vomited after the episode, which occurs with most episodes. He felt like the room was spinning, prior to getting weak. He had eaten breakfast. No n/v/d presently. He did not have a fall or injury today. He has been having episodes 3-4 times weekly for at least the last 3 weeks. When it occurred 3-4 days ago, he fell to the ground and hit the back of his head on a door. His reports it was not hard. He also injured the left knee and is continuing to have pain in the knee, rating it 2/10, denies need for any medication. He has not been evaluated by his primary care provider or cardiology for any of these symptoms. He reports awaking with epistaxis 2-3 days ago, it resolved and no further symptoms. He was recently diagnosed with prostate cancer and was given an injection to block the testosterone. Dr. Valencia is treating for prostate Cancer. He was having episodes prior to the injection. 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 He sees Dr. Escobar for his cardiology follow-up, he has an appointment in 4 days. He denies a previous history of syncopal episodes occurring regularly but possibly remembers them happening once or twice a year but not regularly enough to ever have it evaluated, he moved to [facility] in February 2021, living in [place] prior to that. He was started on Plavix after the stroke and takes Aspirin daily. No history of diabetes, KS, CHF, or other chronic problems. He continues to have weakness in the left UE and LE, using a walker or cane for ambulation. His sister checked a glucose after a recent event, result 150. Accucheck today 140. His B/P is usually 110-116/70s. Timing/Prior Episodes: Recent History Symptoms Prior to Episode: None Precipitating Factors: None Loss of Consciousness: No Loss of Consciousness, Brief (Seconds) Current Symptoms: Back to Normal; No Blurred Vision, No Chest Pain; Diaphoresis (at time of event), Dizziness; No Headache, No Injury, No Lightheadedness, No Loss of Bladder Control, No Loss of Bowel Control, No Motionless, No Nausea, No Pale, No Shallow/Rapid Breathing, No Weak/Absent Pulse; Weakness (Left Upper and lower ext, chronic since CVA Apr 2021) Allergies and Home Medications Allergies Coded Allergies: aloe vera (Verified Allergy, Unknown, 05/01/21) cephalexin (Verified Allergy, Unknown, 05/01/21) influenza virus vaccine ts [id number] (36 mos,up) (Verified Allergy, Unknown, 05/01/21) Patient Home Medication List Home Medication List Reviewed: Yes ALPRAZolam (Xanax Tablet) 0.25 Mg Tab, 0.25 MG PO Q8H PRN for ANXIETY Prescribed by: GUILLERMO CABELLO on 05/23/21 1224 Acetaminophen (Acetaminophen) 325 Mg Tablet, 650 MG PO Q4H PRN for PAIN-MILD (1- 4) Prescribed by: GUILLERMO CABELLO on 05/23/21 1223 Amlodipine Besylate (Amlodipine Besylate) 5 Mg Tablet, 5 MG PO DAILY Prescribed by: GUILLERMO CABELLO on 05/23/21 1223 Aspirin (Aspirin EC) 81 Mg Tablet.dr, 81 MG PO DAILY Prescribed by: GUILLERMO CABELLO on 05/23/21 1223 Atorvastatin Calcium (Atorvastatin Calcium) 80 Mg Tablet, 80 MG PO HS Prescribed by: GUILLERMO CABELLO on 05/23/21 1223 Cholecalciferol (Vitamin D3) (Vitamin D3) 125 Mcg Tablet, 125 MCG PO DAILY, (Reported) Entered as Reported by: GUEVARA MONTANO on 05/02/21 1510 Clopidogrel Bisulfate (Plavix) 75 Mg Tablet, 75 MG PO DAILY Prescribed by: GUILLERMO CABELLO on 05/23/21 1223 Diclofenac Sodium (Diclofenac Sodium) 100 Gm Gel..gram., 1 GM TOP QID PRN for Pain Prescribed by: GUILLERMO CABELLO on 05/23/21 1223 Famotidine (Famotidine) 20 Mg Tablet, 20 MG PO BID PRN for INDIGESTION Prescribed by: GUILLERMO CABELLO on 05/23/21 1223 Garlic (Garlic) 500 Mg Capsule, 500 MG PO DAILY, (Reported) Entered as Reported by: GUEVARA MONTANO on 05/02/21 1510 L. Acidophilus/L.bulgaricus (Lactobacillus Tablet) 1 Each Tablet, 1 EACH PO DAILY, (Reported) Entered as Reported by: GUEVARA MONTANO on 05/01/21 1156 Midodrine HCl (Midodrine HCl) 5 Mg Tablet, 5 MG PO BID Prescribed by: GINETTE PICKERING on 11/03/21 1316 Mirtazapine (Mirtazapine) 15 Mg Tab.rapdis, 7.5 MG PO HS Prescribed by: GUILLERMO CABELLO on 05/23/21 1223 Omega3,5,6,7,9 No.1/[place] Oil (Complete [place] Softgel) 1 Each Capsule, 1 EACH PO DAILY, (Reported) Entered as Reported by: GUEVARA MONTANO on 05/01/21 1156 Pantoprazole Sodium (Pantoprazole Sodium) 40 Mg Tablet.dr, 40 MG PO BID Prescribed by: GUILLERMO CABELLO on 05/23/21 1223 Potassium Chloride (Klor-Con 10) 10 Meq Tablet.er, 10 MEQ PO DAILY@0700 Prescribed by: GUILLERMO CABELLO on 05/23/21 1223 Tamsulosin HCl (Flomax) 0.4 Mg Cap, 0.4 MG PO DAILY@1800 Prescribed by: GUILLERMO CABELLO on 05/23/21 1223 Zinc Gluconate (Zinc) 10 Mg Lozenge, 10 MG PO DAILY, (Reported) Entered as Reported by: GUEVARA MONTANO on 05/02/21 1510 Review of Systems Constitutional: no symptoms reported, see HPI EENTM: see HPI, no symptoms reported Respiratory: no symptoms reported, see HPI Cardiovascular: see HPI; No chest pain, No edema, No palpitations; syncope; No vascular heart diseas Gastrointestinal: no symptoms reported, see HPI Genitourinary: no symptoms reported, see HPI Psychiatric/Neurological: See HPI, Weakness (left from CVA) All Other Systems Reviewed Negative Unless Noted: Yes Past Rjjyuoq-Tstdcs-Uezsdj Hx Patient Social History Tobacco Use?: No Use of E-Cig and/or Vaping dev: No Substance use?: No Alcohol Use?: No Immunizations Up To Date Influenza Vaccine Up-to-Date: No; Not Current First/Initial COVID19 Vaccinat: NONE Second COVID19 Vaccination Sid: NONE Third COVID19 Vaccination Date: NONE 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 oz. kg; 26.00 BMI Method: General Appearance: No Apparent Distress, WD/WN HEENT: PERRL/EOMI, TMs Normal, Normal ENT Inspection, Pharynx Normal, Moist Mucous Membranes Neck: Full Range of Motion, Normal Inspection, Non Tender, Supple Cardiovascular: Regular Rate, Rhythm, No Edema, No JVD, No Murmur, Normal Peripheral Pulses Respiratory: Chest Non Tender, Lungs Clear, Normal Breath Sounds Gastrointestinal: Normal Bowel Sounds, Non Tender, Soft Extremities: Normal Capillary Refill, Normal Inspection, Non Tender, No Calf Tenderness, No Pedal Edema; No Calf Tenderness; Other (superficial abrasion to left knee, trace effusion, tenderness anterior, no instability) Neurologic/Psychiatric: Alert, Oriented x3, No Motor/Sensory Deficits, Normal Mood/Affect Cranial Nerves: Normal Hearing, Normal Speech, PERRL Coordination/Gait: Normal Finger to Nose Motor/Sensory: No Sensory Deficit, Weak Motor Strength LLE (chronic), Weak Motor Strength LUE (chronic) Skin: Normal Color, Warm/Dry Progress/Results/Core Measures Results/Orders Lab Results Laboratory Tests Test 11/03/21 11:28 11/03/21 11:36 Range/Units White Blood Count 4.0 L 4.3-11.0 10^3/uL Red Blood Count 4.12 L 4.30-5.52 10^6/uL Hemoglobin 12.0 L 13.3-17.7 g/dL Hematocrit 37 L 40-54 % Mean Corpuscular Volume 91 80-99 fL Mean Corpuscular Hemoglobin 29 25-34 pg Mean Corpuscular Hemoglobin Concent 32 32-36 g/dL Red Cell Distribution Width 14.1 10.0-14.5 % Platelet Count 185 130-400 10^3/uL Mean Platelet Volume 9.7 9.0-12.2 fL Immature Granulocyte % (Auto) 1 % Neutrophils (%) (Auto) 54 42-75 % Lymphocytes (%) (Auto) 34 12-44 % Monocytes (%) (Auto) 11 0-12 % Eosinophils (%) (Auto) 0 0-10 % Basophils (%) (Auto) 0 0-10 % Neutrophils # (Auto) 2.2 1.8-7.8 10^3/uL Lymphocytes # (Auto) 1.4 1.0-4.0 10^3/uL Monocytes # (Auto) 0.4 0.0-1.0 10^3/uL Eosinophils # (Auto) 0.0 0.0-0.3 10^3/uL Basophils # (Auto) 0.0 0.0-0.1 10^3/uL Immature Granulocyte # (Auto) 0.0 0.0-0.1 10^3/uL Prothrombin Time 13.4 12.2-14.7 SEC INR Comment 1.0 0.8-1.4 Activated Partial Thromboplast Time 34 24-35 SEC Sodium Level 139 135-145 MMOL/L Potassium Level 3.7 3.6-5.0 MMOL/L Chloride Level 105 98-107 MMOL/L Carbon Dioxide Level 22 21-32 MMOL/L Anion Gap 12 5-14 MMOL/L Blood Urea Nitrogen 20 H 7-18 MG/DL Creatinine 1.12 0.60-1.30 MG/DL Estimat Glomerular Filtration Rate 66 BUN/Creatinine Ratio 18 Glucose Level 154 H 70-105 MG/DL Calcium Level 8.6 8.5-10.1 MG/DL Corrected Calcium 8.9 8.5-10.1 MG/DL Magnesium Level 1.9 1.6-2.4 MG/DL Total Bilirubin 0.5 0.1-1.0 MG/DL Aspartate Amino Transf (AST/SGOT) 37 H 5-34 U/L Alanine Aminotransferase (ALT/SGPT) 37 0-55 U/L Alkaline Phosphatase 60 40-136 U/L Myoglobin 52.8 10.0-92.0 NG/ML Troponin I < 0.028 <0.028 NG/ML B-Type Natriuretic Peptide 17.4 <100.0 PG/ML Total Protein 6.7 6.4-8.2 GM/DL Albumin 3.6 3.2-4.5 GM/DL TSH [place] Testing 1.00 0.35-4.94 UIU/ML Glucometer 140 H 70-110 MG/DL My Orders Orders - [address] Head Wo-R/O Stroke (11/03/21 11:39) Bnp Mcmullen (11/03/21 11:39) Cbc With Automated Diff (11/03/21 11:39) Comprehensive Metabolic Panel (11/03/21 11:39) Magnesium (11/03/21 11:39) Protime With Inr (11/03/21 11:39) Partial Thromboplastin Time (11/03/21 11:39) Thyroid Analyzer (11/03/21 11:39) Troponin I Abimael (11/03/21 11:39) Ua Culture If Indicated (11/03/21 11:39) Myoglobin Serum (11/03/21 11:39) Accucheck Stat ONCE (11/03/21 11:39) Chest 1 View, Ap/Pa Only (11/03/21 11:39) Knee, Left, 3 Views (11/03/21 11:39) Ed Iv/Invasive Line Start (11/03/21 11:39) Ns Iv 500 Ml (Sodium Chloride 0.9%) (11/03/21 11:45) Continuous Ekg Monitoring (11/03/21 11:39) Ekg Tracing (11/03/21 11:39) Orthostatic Vital Signs (Adult (11/03/21 11:43) Ed Iv/Invasive Line Start (11/03/21 13:04) Ns Iv 1000 Ml (Sodium Chloride 0.9%) (11/03/21 13:15) Orthostatic Vital Signs (Adult (11/03/21 13:18) Midodrine Tablet (Proamatine) (11/03/21 13:19) Medications Given in ED Current Medications Medications Dose Ordered Sig/Otilio Route Start Time Stop Time Status Last Admin Dose Admin Sodium Chloride 500 ml @ 0 mls/hr Q0M ONCE IV 11/03/21 11:45 11/03/21 11:46 DC 11/03/21 12:12 0 MLS/HR Vital Signs/I&O 11/03/21 11/03/21 11/03/21 11:21 12:23 13:39 Temp 36.2 Pulse 79 72 71 78 73 91 82 Resp 20 B/P (MAP) 103/62 (76) 116/59 (78) 124/69 (87) 91/49 (63) 110/71 (84) 66/47 (53) 101/52 (68) Pulse Ox 96 O2 Delivery Room Air FSBG Bedside Testing Finger Stick Blood Glucose: 140 Blood Glucose Action Taken: reported to Ginette Pickering Progress Progress Note : Time: 11:20 Progress Note Patient seen and evaluated, will obtain labs, EKG, CT head, x-ray left knee and chest x-ray. Normal saline 500 mL IV, EKG shows no ST elevation or acute changes. at bedside. No requests for medication for any symptoms at this time. Will continue to monitor. VS stable 1215 CT head negative, no complaints at this time. Awaiting labs. 1230 B/P decrease from lying 116/59, sitting 91/49, to standing 66/47. Patient did not get dizzy with standing. [address] Escobar, discussed orthostatic hypotension, recommended additional IV fluids, recheck b/p and start Midodrine 5mg BID. Discussed results and plan with patient, and sister. 1400 improved orthostatic blood pressures after fluids. Patient has remained stable with no complaints. Discharge instructions and return precautions reviewed with the patient. Initial ECG Impression Date: Nov 03, 2021 Initial ECG Impression Time: 11:30 Initial ECG Rate: 78 Initial ECG Rhythm: Normal Sinus Initial ECG Intervals: Normal Initial ECG Intervals WI 201, QRSD 94, QT 387, QTc 441. Henderson P 77, QRS 48, T 75. Initial ECG Impression: Normal Initial ECG Comparisson: No Previous ECG Available Diagnostic Imaging Diagonstic Imaging: CT Plain Films/CT/US/NM/MRI: head Comments NAME: MAYINIRMALA Roman [facility] REC#: [id number] PT STATUS: REG ER : 1940 PHYSICIAN: GINETTE PICKERING ADMIT DATE: 11/03/21/ER Draft Date of Exam:11/03/21 CT HEAD WO-R/O STROKE CLINICAL INDICATION: Patient complains of multiple syncopal episodes, falls, lasts 2-3 weeks. Patient usually vomits after episodes. Patient denies hitting head. EXAM: Axial CT scan of the brain performed without IV contrast. High-resolution axial CT brain images with sagittal and coronal reformations were also created. Auto Exposure Controls were utilized during the CT exam to meet ALARA standards for radiation dose reduction. COMPARISON: Head CT without contrast and CT angiogram of the head/neck dated 07/19/2021. FINDINGS: There is stable appearance of the brain parenchyma with no interval acute intracranial process. Stable moderate-sized chronic cerebral infarct involving the posterior right frontal lobe, right parietal lobe regions. There are patchy and confluent low-attenuation white matter changes throughout both cerebral hemispheres, likely representing chronic small vessel ischemic disease. There is no dense vessel sign. There is no intracranial hemorrhage, brain herniation or midline shift. There is no hydrocephalus. The brain parenchymal volume loss. Basal cisterns are unremarkable. There is mild mucosal thickening involving the ethmoid sinus. Mastoid air cells are clear. IMPRESSION: 1: Stable CT scan of the brain with no evidence of acute intracranial process. There is no evidence of intracranial hemorrhage. 2: Stable chronic right cerebral hemisphere infarct. Results of this report were discussed with KIRSTIE Villanueva via the telephone on 11/03/2021 at 1210 hours. Dictated on workstation # [id number] Dict: 11/03/21 1204 Trans: 11/03/21 1219 [facility] 2032-2023 Interpreted by: SANDRA JUAN MD Electronically signed by: Reviewed: Reviewed by Me, Discussed w/Radiologist Diagonstic Imaging: Xray Plain Films/CT/US/NM/MRI: chest Comments NAME: NIRMALA SEE [facility] REC#: [id number] PT STATUS: REG ER : 1940 PHYSICIAN: GINETTE PICKERING ADMIT DATE: 11/03/21/ER Draft Date of Exam:11/03/21 CHEST 1 VIEW, AP/PA ONLY CLINICAL INDICATION: Patient is status post knee pain from fall in last week. EXAM: Portable chest x-ray, upright view. COMPARISON: None. FINDINGS: Lungs/pleura: Lungs are clear. There is no pneumothorax. There is no pleural effusion. Mediastinum: Unremarkable. Pulmonary vasculature: Unremarkable. Heart: Unremarkable. Bones/extrathoracic soft tissue: There are degenerative spurs involving the thoracic spine. IMPRESSION: There is no radiographic evidence of acute cardiopulmonary process. Dictated on workstation # [id number] Dict: 11/03/21 1225 Trans: 11/03/21 1242 [id number] Interpreted by: SANDRA JUAN MD Electronically signed by: Reviewed: Reviewed by Me Diagonstic Imaging: Xray Plain Films/CT/US/NM/MRI: knee Comments NAME: NIRMALA SEE [facility] REC#: [id number] PT STATUS: REG ER : 1940 PHYSICIAN: GINETTE PICKERING ADMIT DATE: 11/03/21/ER Draft Date of Exam:11/03/21 KNEE, LEFT, 3 VIEWS CLINICAL INDICATION: Patient is status post fall, with knee pain. EXAM: X-ray of the left knee, three views. COMPARISON: None. FINDINGS: There is no acute fracture or dislocation. There are small calcifications posterior to the knee, which may represent loose bodies within the adjacent soft tissue. There is unxllomt-yh-fujqmv medial compartment narrowing on these non-weightbearing views. There are tricompartmental hypertrophic spurs, most pronounced involving the medial compartment. There is tibial spur, enthesopathy, and spurring of the patella. There is no significant knee effusion. 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 Dictated on workstation # [id number] Dict: 11/03/21 1225 Trans: 11/03/21 1246 [id number] Interpreted by: SANDRA JUAN MD Electronically signed by: Reviewed: Reviewed by Me Departure Impression Primary Impression: Syncope Qualified Codes: R55 - Syncope and collapse Additional Impression: Orthostatic hypotension Disposition: 01 HOME, SELF-CARE Condition: Stable Departure-Patient Inst. Decision time for Depature: 13:15 Referrals: GUILLERMO CABELLO DO (PCP/Family) Primary Care Physician Patient Instructions: Orthostatic Hypotension (DC) Add. Discharge Instructions: Change positions slowly. If you have been lying down, sit on the side of the bed or the couch for 3 to 5 minutes before standing and walking. Continue to use your walker or cane at all times to prevent falls. Take the Midodrine as prescribed twice daily. Monitor your blood pressure 2-3 times daily and take a log to your appointment with Dr. Escobar. Keep your scheduled appointment with Dr. Escobar for 11/07/2021. If symptoms are not improving or worsen follow-up with your director industrial relations or Dr. Cabello. Continue to take all medications as prescribed. Return to the emergency department for new, urgent healthcare needs. All discharge instructions reviewed with patient and/or family. Voiced understanding. Scripts Midodrine HCl (Midodrine HCl) 5 Mg Tablet 5 MG PO BID, #60 TAB 0 Refills Prov: GINETTE PICKERING 11/03/21 Copy Copies To 1: GUILLERMO CABELLO DO; JUAN CARLOS ESCOBAR JR, MD HITE, AMY ARNP Nov 03, 2021 11:50
[2021-11-03 11:55] LABS: ALBUMIN 3.6 GM/DL (3.2-4.5); CHLORIDE 105 MMOL/L (98-107); POTASSIUM 3.7 MMOL/L (3.6-5.0); SODIUM 139 MMOL/L (135-145)
[2021-11-03 11:56] LABS: CALCIUM 8.6 MG/DL (8.5-10.1); PROTHROMBIN TIME PATIENT 13.4 SEC (12.2-14.7)
[2021-11-03 11:57] LABS: GLUCOSE 154 MG/DL (70-105); TOTAL PROTEIN 6.7 GM/DL (6.4-8.2)
[2021-11-03 11:59] LABS: BILIRUBIN,TOTAL 0.5 MG/DL (0.1-1.0); CARBON DIOXIDE 22 MMOL/L (21-32)
[2021-11-03 12:01] LABS: ALKALINE PHOSPHATASE 60 U/L (40-136); CREATININE SERUM 1.12 MG/DL (0.60-1.30); GFR ESTIMATED 66
[2021-11-03 12:02] LABS: BUN/CREATININE RATIO 18
[2021-11-03 12:04] LABS: ALANINE AMINOTRANSFERASE 37 U/L (0-55); MAGNESIUM 1.9 MG/DL (1.6-2.4)
--- NOTE | 2021-11-03 12:20 | Diagnostic Imaging Report ---
CLINICAL INDICATION: Patient complains of multiple syncopal episodes, falls, lasts 2-3 weeks. Patient usually vomits after episodes. Patient denies hitting head. EXAM: Axial CT scan of the brain performed without IV contrast. High-resolution axial CT brain images with sagittal and coronal reformations were also created. Auto Exposure Controls were utilized during the CT exam to meet ALARA standards for radiation dose reduction. COMPARISON: Head CT without contrast and CT angiogram of the head/neck dated 07/19/2021. FINDINGS: There is stable appearance of the brain parenchyma with no interval acute intracranial process. Stable moderate-sized chronic cerebral infarct involving the posterior right frontal lobe, right parietal lobe regions. There are patchy and confluent low-attenuation white matter changes throughout both cerebral hemispheres, likely representing chronic small vessel ischemic disease. There is no dense vessel sign. There is no intracranial hemorrhage, brain herniation or midline shift. There is no hydrocephalus. The brain parenchymal volume loss. Basal cisterns are unremarkable. There is mild mucosal thickening involving the ethmoid sinus. Mastoid air cells are clear. IMPRESSION: 1: Stable CT scan of the brain with no evidence of acute intracranial process. There is no evidence of intracranial hemorrhage. 2: Stable chronic right cerebral hemisphere infarct. Results of this report were discussed with KIRSTIE Villanueva via the telephone on 11/03/2021 at 1210 hours. Dictated by: Dictated on workstation # [id number]
[2021-11-03 12:23] VITALS: BP_SYST 116; BP_SYST 66; BP_SYST 91; BP_DIAS 47; BP_DIAS 49; BP_DIAS 59
--- NOTE | 2021-11-03 12:42 | Diagnostic Imaging Report ---
CLINICAL INDICATION: Patient is status post knee pain from fall in last week. EXAM: Portable chest x-ray, upright view. COMPARISON: None. FINDINGS: Lungs/pleura: Lungs are clear. There is no pneumothorax. There is no pleural effusion. Mediastinum: Unremarkable. Pulmonary vasculature: Unremarkable. Heart: Unremarkable. Bones/extrathoracic soft tissue: There are degenerative spurs involving the thoracic spine. IMPRESSION: There is no radiographic evidence of acute cardiopulmonary process. Dictated by: Dictated on workstation # [id number]
--- NOTE | 2021-11-03 12:46 | Diagnostic Imaging Report ---
CLINICAL INDICATION: Patient is status post fall, with knee pain. EXAM: X-ray of the left knee, three views. COMPARISON: None. FINDINGS: There is no acute fracture or dislocation. There are small calcifications posterior to the knee, which may represent loose bodies within the adjacent soft tissue. There is eptipfed-aa-giiyoz medial compartment narrowing on these non-weightbearing views. There are tricompartmental hypertrophic spurs, most pronounced involving the medial compartment. There is tibial spur, enthesopathy, and spurring of the patella. There is no significant knee effusion. 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 Dictated by: Dictated on workstation # [id number]
[2021-11-03] MEDS ORDERED: NS IV 1000 ML 1,000 ML IV SCH (13:15)
[2021-11-03] MEDS ORDERED: MIDO5TAB3 PO (13:16)
[2021-11-03] MEDS ORDERED: MIDODRINE 10 MG (PROAMATINE) TAB PO STA (13:19)
[2021-11-03 13:39] VITALS: BP_SYST 101; BP_SYST 110; BP_SYST 124; BP_DIAS 52; BP_DIAS 69; BP_DIAS 71
[2021-11-03 14:08] VITALS: BP 129/65
== END 2021-11-03 14:08 | disposition home or self-care (01) ==
LOC: EDUNIT# 11:19 → ER 11:26
DX: I95.1 Orthostatic hypotension (principal); I10 Essential (primary) hypertension; E78.00 Pure hypercholesterolemia, unspecified; K21.9 Gastro-esophageal reflux disease without esophagitis; Z95.5 Presence of coronary angioplasty implant and graft; Z86.73 Personal history of transient ischemic attack (TIA), and cerebral infarction without residual deficits; Z79.82 Long term (current) use of aspirin; Z79.899 Other long term (current) drug therapy
CPT/HCPCS: 36415; 70450; 71045; 73562; 80053; 82947; 83735; 83874; 83880; 84443; 84484; 85025; 85610; 85730; 93005

== ENCOUNTER 2021-11-05 10:36 | Inpatient (IN) | payer MEDICARE ==
[~2021-11-05] VITALS: Ht 170 cm; Wt 68.9 kg
[~2021-11-05 10:36] MED LIST changes: +MIDO5TAB3 PO
[2021-11-05] MEDS ORDERED: NS IV 1000 ML 1,000 ML IV SCH (10:45)
[2021-11-05 10:58] LABS: BASOPHILS % (AUTO) 0 % (0-10); EOSINOPHILS % (AUTO) 0 % (0-10); HEMATOCRIT 38 % (40-54); HEMOGLOBIN 11.9 g/dL (13.3-17.7); LYMPHOCYTES # (AUTO) 1.1 10^3/uL (1.0-4.0); LYMPHOCYTES % (AUTO) 17 % (12-44); MEAN CORPUSCULAR HEMOGLOBIN 29 pg (25-34); MEAN CORPUSCULAR HGB CONC 32 g/dL (32-36); MEAN CORPUSCULAR VOLUME 91 fL (80-99); MEAN PLATELET VOLUME 9.4 fL (9.0-12.2); MONOCYTES # (AUTO) 0.3 10^3/uL (0.0-1.0); MONOCYTES % (AUTO) 5 % (0-12); NEUTROPHILS # (AUTO) 5.3 10^3/uL (1.8-7.8); NEUTROPHILS % (AUTO) 78 % (42-75); PLATELET COUNT 156 10^3/uL (130-400); WHITE BLOOD COUNT 6.7 10^3/uL (4.3-11.0)
[2021-11-05 11:11] LABS: ALBUMIN 3.5 GM/DL (3.2-4.5); CHLORIDE 104 MMOL/L (98-107); POTASSIUM 3.6 MMOL/L (3.6-5.0); SODIUM 138 MMOL/L (135-145)
[2021-11-05 11:13] LABS: CALCIUM 8.4 MG/DL (8.5-10.1)
[2021-11-05 11:14] LABS: GLUCOSE 149 MG/DL (70-105); TOTAL PROTEIN 6.7 GM/DL (6.4-8.2)
[2021-11-05 11:15] LABS: BILIRUBIN,TOTAL 0.5 MG/DL (0.1-1.0); CARBON DIOXIDE 23 MMOL/L (21-32)
[2021-11-05 11:17] LABS: ALKALINE PHOSPHATASE 55 U/L (40-136)
[2021-11-05 11:18] LABS: CREATININE SERUM 1.17 MG/DL (0.60-1.30); FIBRIN DEGRADATION PRODUCTS 1.15 UG/ML (0.00-0.49); GFR ESTIMATED 62; PROTHROMBIN TIME PATIENT 13.8 SEC (12.2-14.7)
[2021-11-05 11:19] LABS: BUN/CREATININE RATIO 15
[2021-11-05 11:20] LABS: MAGNESIUM 1.8 MG/DL (1.6-2.4)
[2021-11-05 11:21] LABS: ALANINE AMINOTRANSFERASE 37 U/L (0-55); CREATINE KINASE 49 U/L (30-200)
[2021-11-05 11:26] LABS: ERYTHROCYTE SEDIMENTATION RATE 42 MM/HR (0-30)
[2021-11-05 11:29] LABS: CREATINE KINASE MB 0.2 NG/ML (<6.6)
[2021-11-05 11:41] LABS: TSH (THYROID ANALYZER) 1.76 UIU/ML (0.35-4.94)
--- NOTE | 2021-11-05 11:44 | Diagnostic Imaging Report ---
EXAMINATION: Portable erect AP chest at 11:01 a.m. INDICATION: Cough. FINDINGS: The heart size is within normal limits and stable when compared to 09/02/2022. There is a vague area of slightly increased density in the right lung base near the right hemidiaphragm. This does seem somewhat denser than on the prior exam. While this could be in part related to an epicardial fat pad, the possibility that there is an element of mild pneumonia/atelectasis in this area should also be considered. The minimal strand-like atelectasis in the left lung base seen previously is again evident. The upper lungs are clear. The mediastinum is not widened. The osseous structures are intact. IMPRESSION: The vague area of increased density overlying the right lung base is of uncertain etiology. While this could be secondary to an epicardial fat pad, the possibility that there is an element of mild acute pneumonia should also be considered. Dictated by: Dictated on workstation # [id number]
--- NOTE | 2021-11-05 12:22 | ED General ---
General Chief Complaint: Cardiac/General Problems Stated Complaint: LOW BP Nursing Triage Note: PT TO ED BY EMS WITH C/O HYPOTENSION. EMS REPORTS PT WAS FOUND "UNRESPONSIVE" BY FAMILY ON THE TOILET THIS MORNING. INITIAL BP FOR EMS IN 70S SYSTOLIC. PT REPORTS HE HAS HAD ONGOING ISSUES WITH HIS BP DROPPING. PT DENIES CP, SOB, DIZZINESS AT THIS TIME. A&O X4. REPORTS HE HAS HAD COUGH/CONGESTION X 2 DAYS. Source of Information: Patient (SOMEWHAT LIMITED HISTORIAN), EMS History of Present Illness Date Seen by Provider: Nov 05, 2021 Time Seen by Provider: 10:37 Allergies and Home Medications Allergies Coded Allergies: aloe vera (Verified Allergy, Unknown, 05/01/21) cephalexin (Verified Allergy, Unknown, 05/01/21) influenza virus vaccine ts [id number] (36 mos,up) (Verified Allergy, Unknown, 05/01/21) Patient Home Medication List ALPRAZolam (Xanax Tablet) 0.25 Mg Tab, 0.25 MG PO Q8H PRN for ANXIETY Prescribed by: GUILLERMO CABELLO on 05/23/21 1224 Acetaminophen (Acetaminophen) 325 Mg Tablet, 650 MG PO Q4H PRN for PAIN-MILD (1- 4) Prescribed by: GUILLERMO CABELLO on 05/23/21 1223 Amlodipine Besylate (Amlodipine Besylate) 5 Mg Tablet, 5 MG PO DAILY Prescribed by: GUILLERMO CABELLO on 05/23/21 1223 Aspirin (Aspirin EC) 81 Mg Tablet.dr, 81 MG PO DAILY Prescribed by: GUILLERMO CABELLO on 05/23/21 1223 Atorvastatin Calcium (Atorvastatin Calcium) 80 Mg Tablet, 80 MG PO HS Prescribed by: GUILLERMO CABELLO on 05/23/21 1223 Cholecalciferol (Vitamin D3) (Vitamin D3) 125 Mcg Tablet, 125 MCG PO DAILY, (Reported) Entered as Reported by: GUEVARA MONTANO on 05/02/21 1510 Clopidogrel Bisulfate (Plavix) 75 Mg Tablet, 75 MG PO DAILY Prescribed by: GUILLERMO CABELLO on 05/23/21 1223 Diclofenac Sodium (Diclofenac Sodium) 100 Gm Gel..gram., 1 GM TOP QID PRN for Pain Prescribed by: GUILLERMO CABELLO on 05/23/21 1223 Famotidine (Famotidine) 20 Mg Tablet, 20 MG PO BID PRN for INDIGESTION Prescribed by: GUILLERMO CABELLO on 05/23/21 1223 Garlic (Garlic) 500 Mg Capsule, 500 MG PO DAILY, (Reported) Entered as Reported by: GUEVARA MONTANO on 05/02/21 1510 L. Acidophilus/L.bulgaricus (Lactobacillus Tablet) 1 Each Tablet, 1 EACH PO DAILY, (Reported) Entered as Reported by: GUEVARA MONTANO on 05/01/21 1156 Midodrine HCl (Midodrine HCl) 5 Mg Tablet, 5 MG PO BID Prescribed by: PARRISH PICKERING on 11/03/21 1316 Mirtazapine (Mirtazapine) 15 Mg Tab.rapdis, 7.5 MG PO HS Prescribed by: GUILLERMO CABELLO on 05/23/21 1223 Omega3,5,6,7,9 No.1/[place] Oil (Complete [place] Softgel) 1 Each Capsule, 1 EACH PO DAILY, (Reported) Entered as Reported by: GUEVARA MONTANO on 05/01/21 1156 Pantoprazole Sodium (Pantoprazole Sodium) 40 Mg Tablet.dr, 40 MG PO BID Prescribed by: GUILLERMO CABELLO on 05/23/21 1223 Potassium Chloride (Klor-Con 10) 10 Meq Tablet.er, 10 MEQ PO DAILY@0700 Prescribed by: GUILLERMO CABELLO on 05/23/21 1223 Tamsulosin HCl (Flomax) 0.4 Mg Cap, 0.4 MG PO DAILY@1800 Prescribed by: GUILLERMO CABELLO on 05/23/21 1223 Zinc Gluconate (Zinc) 10 Mg Lozenge, 10 MG PO DAILY, (Reported) Entered as Reported by: GUEVARA MONTANO on 05/02/21 1510 Past Zmsipae-Gmvvli-Etxfhk Hx Patient Social History Tobacco Use?: No Use of E-Cig and/or Vaping dev: No Substance use?: No Alcohol Use?: No Pt feels they are or have been: No Immunizations Up To Date Influenza Vaccine Up-to-Date: No; Not Current First/Initial COVID19 Vaccinat: NONE Second COVID19 Vaccination Sid: NONE Third COVID19 Vaccination Date: NONE Past Medical History Surgery/Hospitalization HX: PROSTATE CA, STROKE, TIA SX:NATALIA, CAROTID STENTS Surgeries: Yes Gallbladder, Vascular Surgery High Cholesterol, Hypertension Stroke, TIA Genitourinary: Yes Prostate Problems Gastroesophageal Reflux Arthritis Prostate Did You Recieve Any Treatments: Yes Physical Exam Vital Signs Vital Signs - First Documented 11/05/21 10:37 Temp 36.6 Pulse 79 Resp 13 B/P (MAP) 106/65 (79) Pulse Ox 95 O2 Delivery Room Air Capillary Refill : Less Than 3 Seconds Height, Weight, BMI Height: '" Weight: lbs. oz. kg; 25.00 BMI Method: Progress/Results/Core Measures Suspected Sepsis SIRS Temperature: Pulse: 79 Respiratory Rate: 13 Laboratory Tests 11/05/21 10:45: White Blood Count 6.7 Blood Pressure 106 /65 Mean: 79 Laboratory Tests 11/05/21 10:45: Creatinine 1.17, INR Comment 1.0, Platelet Count 156, Total Bilirubin 0.5 Results/Orders Lab Results Laboratory Tests Test 11/05/21 10:45 11/05/21 10:50 11/05/21 14:20 11/05/21 14:37 Range/Units White Blood Count 6.7 4.3-11.0 10^3/uL Red Blood Count 4.15 L 4.30-5.52 10^6/uL Hemoglobin 11.9 L 13.3-17.7 g/dL Hematocrit 38 L 40-54 % Mean Corpuscular Volume 91 80-99 fL Mean Corpuscular Hemoglobin 29 25-34 pg Mean Corpuscular Hemoglobin Concent 32 32-36 g/dL Red Cell Distribution Width 14.2 10.0-14.5 % Platelet Count 156 130-400 10^3/uL Mean Platelet Volume 9.4 9.0-12.2 fL Immature Granulocyte % (Auto) 0 % Neutrophils (%) (Auto) 78 H 42-75 % Lymphocytes (%) (Auto) 17 12-44 % Monocytes (%) (Auto) 5 0-12 % Eosinophils (%) (Auto) 0 0-10 % Basophils (%) (Auto) 0 0-10 % Neutrophils # (Auto) 5.3 1.8-7.8 10^3/uL Lymphocytes # (Auto) 1.1 1.0-4.0 10^3/uL Monocytes # (Auto) 0.3 0.0-1.0 10^3/uL Eosinophils # (Auto) 0.0 0.0-0.3 10^3/uL Basophils # (Auto) 0.0 0.0-0.1 10^3/uL Immature Granulocyte # (Auto) 0.0 0.0-0.1 10^3/uL Erythrocyte Sedimentation Rate 42 H 0-30 MM/HR Prothrombin Time 13.8 12.2-14.7 SEC INR Comment 1.0 0.8-1.4 Activated Partial Thromboplast Time 40 H 24-35 SEC D-Dimer 1.15 H 0.00-0.49 UG/ML Sodium Level 138 135-145 MMOL/L Potassium Level 3.6 3.6-5.0 MMOL/L Chloride Level 104 98-107 MMOL/L Carbon Dioxide Level 23 21-32 MMOL/L Anion Gap 11 5-14 MMOL/L Blood Urea Nitrogen 17 7-18 MG/DL Creatinine 1.17 0.60-1.30 MG/DL Estimat Glomerular Filtration Rate 62 BUN/Creatinine Ratio 15 Glucose Level 149 H 70-105 MG/DL Calcium Level 8.4 L 8.5-10.1 MG/DL Corrected Calcium 8.8 8.5-10.1 MG/DL Magnesium Level 1.8 1.6-2.4 MG/DL Total Bilirubin 0.5 0.1-1.0 MG/DL Aspartate Amino Transf (AST/SGOT) 36 H 5-34 U/L Alanine Aminotransferase (ALT/SGPT) 37 0-55 U/L Alkaline Phosphatase 55 40-136 U/L Total Creatine Kinase 49 30-200 U/L Creatine Kinase MB 0.2 <6.6 NG/ML Myoglobin 65.1 10.0-92.0 NG/ML Troponin I < 0.028 <0.028 NG/ML C-Reactive Protein High Sensitivity 5.80 H 0.00-0.50 MG/DL B-Type Natriuretic Peptide 23.6 <100.0 PG/ML Total Protein 6.7 6.4-8.2 GM/DL Albumin 3.5 3.2-4.5 GM/DL Procalcitonin 0.12 H <0.10 NG/ML TSH Colbert Testing 1.76 0.35-4.94 UIU/ML Influenza Type A (RT-PCR) Not Detected Not Detecte Influenza Type B (RT-PCR) Not Detected Not Detecte SARS-CoV-2 RNA (RT-PCR) Detected H Not Detecte Blood Gas Puncture Site RR Blood Gas Patient Temperature 36.6 Arterial Blood pH 7.46 H 7.37-7.43 Arterial Blood Partial Pressure CO2 32 L 35-45 MMHG Arterial Blood Partial Pressure O2 86 79-93 MMHG Arterial Blood HCO3 22 L 23-27 MMOL/L Arterial Blood Total CO2 23.2 21.0-31.0 MMOL/L Arterial Blood Oxygen Saturation 98 94-100 % Arterial Blood Base Excess -1.3 -2.5-2.5 MMOL/L Magdi Test YES-POS Blood Gas Ventilator Setting NO Blood Gas Inspired Oxygen 2L My Orders Orders - WIN HAYES DO Ed Iv/Invasive Line Start (11/05/21 10:42) Ekg Tracing (11/05/21 10:42) Monitor-Rhythm Ecg Trace Only (11/05/21 10:42) Chest 1 View, Ap/Pa Only (11/05/21 10:42) Cbc With Automated Diff (11/05/21 10:42) Comprehensive Metabolic Panel (11/05/21 10:42) Fibrin Degradation Products (11/05/21 10:42) Procalcitonin (Pct) (11/05/21 10:42) Hs C Reactive Protein (11/05/21 10:42) Erythrocyte Sedimentation Rate (11/05/21 10:42) Covid 19 Inhouse Test (11/05/21 10:42) Bnp Abimael (11/05/21 10:42) Creatine Kinase (11/05/21 10:42) Creatine Kinase Mb (11/05/21 10:42) Magnesium (11/05/21 10:42) Protime With Inr (11/05/21 10:42) Partial Thromboplastin Time (11/05/21 10:42) Thyroid Analyzer (11/05/21 10:42) Ua Culture If Indicated (11/05/21 10:42) Myoglobin Serum (11/05/21 10:42) Troponin I Stewart (11/05/21 10:42) Ed Iv/Invasive Line Start (11/05/21 10:42) Ns Iv 1000 Ml (Sodium Chloride 0.9%) (11/05/21 10:45) Influenza A And B By Pcr (11/05/21 10:42) Isolation Central Supply Req (11/05/21 10:42) Ct Maryam Chest/Noang Abd-Pelv W (11/05/21 12:18) Iohexol Injection (Omnipaque 350 Mg/Ml 1 (11/05/21 12:45) Received Contrast (Hold Metformin- Contr (11/05/21 12:45) Ns (Ivpb) (Sodium Chloride 0.9% Ivpb Bag (11/05/21 12:45) Straight Cath For Spec.-Adult (11/05/21 13:57) Arterial Blood Gas (11/05/21 13:57) Medications Given in ED Current Medications Medications Dose Ordered Sig/Otilio Route Start Time Stop Time Status Last Admin Dose Admin Iohexol 100 ml ONCE ONCE IV 11/05/21 12:45 11/05/21 12:46 DC 11/05/21 12:58 100 ML Sodium Chloride 100 ml ONCE ONCE IV 11/05/21 12:45 11/05/21 12:46 DC 11/05/21 12:58 80 ML Vital Signs/I&O 11/05/21 10:37 Temp 36.6 Pulse 79 Resp 13 B/P (MAP) 106/65 (79) Pulse Ox 95 O2 Delivery Room Air Capillary Refill : Less Than 3 Seconds Blood Pressure Mean: 79 Progress Note : Progress Note PPE WORN ECG Initial ECG Impression Date: Nov 05, 2021 Initial ECG Impression Time: 11:01 Initial ECG Rate: 73 Initial ECG Rhythm: Normal Sinus Departure Impression Primary Impression: Recurrent syncope Additional Impressions: COVID-19 virus infection Hypotension Prostate cancer Hypoxia Dehydration Disposition: ADMITTED INPATIENT Condition: Stable Admissions Decision to Admit Reason: Admit from ER (General) Departure-Patient Inst. Referrals: GUILLERMO CABELLO DO (PCP/Family) Primary Care Physician WIN HAYES DO Nov 05, 2021 12:22
[2021-11-05] MEDS ORDERED: IOHEXOL 350 MG/ML 100 ML (OMNIPAQUE 350) VIAL IV ONE (12:45)
[2021-11-05] MEDS ORDERED: HOLD METFORMIN - RECEIVED CONTRAST 20 ML VIAL IV SCH (12:45)
[2021-11-05] MEDS ORDERED: NS 100 ML (IVPB) BAG IV ONE (12:45)
--- NOTE | 2021-11-05 13:41 | Diagnostic Imaging Report ---
EXAMINATION: CTA chest, abdomen and pelvis. TECHNIQUE: Thin axial sections through the chest, abdomen and pelvis are obtained following intravenous contrast bolus. Multiplanar MIP images were reconstructed and reviewed. All CT scans use one or more of the following dose optimizing techniques: Automated exposure control, MA and/or KvP adjustment based on patient size and exam type or iterative reconstruction. INDICATION: Syncope, COVID patient, history of prostate cancer. COMPARISON: Exam is correlated with an abdominopelvic CT 10/08/2021. FINDINGS: CHEST: Pulmonary arterial branches are widely patent. No filling defect. No PE. The thoracic aorta is atherosclerotic but patent, nonaneurysmal, and nonacute. There are coronary artery atherosclerotic vascular calcifications. There is thickening of the central airways as well as some linear mucoid impactions in the right lung base involving the lower greater than middle lobes. This is all new from the comparison abdominopelvic CT. There are some right greater than left linear interstitial infiltrates. No effusion or pneumothorax. No acute chest wall pathology. ABDOMEN AND PELVIS: Bladder calculi are chronic, the largest stone on the right is 7 mm. No bladder wall thickening. No perivesical edema. No opaque ureteral stone. No hydroureteronephrosis. There is no abdominopelvic retroperitoneal or mesenteric lymphadenopathy. The liver, spleen, adrenals, and pancreas are unremarkable. There is atherosclerotic aortic disease, nonaneurysmal. No ascites, abscess, hematoma, or acute fluid collection. Benign fatty nodules in the kidney are stable without hemorrhage. There are a few renal cysts, chronic and benign. No mesenteric or retroperitoneal lymphadenopathy. No acute bony pathology. No perienteric or pericolonic edema. No inflammatory process. No ascites. No abscess or hemorrhage. IMPRESSION: CHEST: Negative for PE or acute aortic disease. New predominantly right basilar interstitial infiltrates accompanied by thickening of the airways and features of bronchitis with zones of mucoid impaction. ABDOMEN AND PELVIS: The abdominopelvic portion shows stable bladder stones, benign renal cystic and fatty nodules. No bowel, biliary, or urinary tract obstruction. No inflammatory process, hemorrhage, fluid collection, or ascites. No evidence for metastatic disease. Dictated by: Dictated on workstation # [id number]
[2021-11-05 14:30] LABS: ABG BASE EXCESS -1.3 MMOL/L (-2.5-2.5); ABG OXYGEN SATURATION 98 % (94-100); ABG PCO2 32 MMHG (35-45); ABG PH 7.46 (7.37-7.43); ABG PO2 86 MMHG (79-93); ABG TCO2 23.2 MMOL/L (21.0-31.0)
[2021-11-05 14:38] LABS: ALLENS TEST YES-POS; INSPIRED O2 2L; PATIENT TEMP 36.6; VENTILATOR NO
[2021-11-05 14:53] LABS: BILIRUBIN,URINE NEGATIVE (NEGATIVE); CLARITY,URINE CLEAR; COLOR,URINE YELLOW; GLUCOSE, URINE (UA) NEGATIVE (NEGATIVE); KETONES,URINE NEGATIVE (NEGATIVE); LEUKOCYTE ESTERASE ,URINE NEGATIVE (NEGATIVE); NITRITE,URINE NEGATIVE (NEGATIVE); PROTEIN,URINE NEGATIVE (NEGATIVE)
[2021-11-05 15:25] LABS: BACTERIA,URINE NEGATIVE /HPF; RBC,URINE 0-2 /HPF
[2021-11-05] MEDS ORDERED: diphenhydrAMINE 25 MG TAB (BENADRYL) PO PRN (16:15)
[2021-11-05] MEDS ORDERED: CALCIUM CARBONATE 500 MG (TUMS) TAB.CHEW PO PRN (16:15)
[2021-11-05] MEDS ORDERED: LACTULOSE SYRUP 10GM/15ML (ENULOSE) 30ML UDC PO PRN (16:15)
[2021-11-05] MEDS ORDERED: ONDANSETRON 4 MG (ZOFRAN) ORAL DISSOLVE TAB PO PRN (16:15)
[2021-11-05] MEDS ORDERED: MELATONIN 3 MG TABLET PO PRN (16:15)
[2021-11-05] MEDS ORDERED: ONDANSETRON 4 MG/2 ML (SDV) Z0FRAN IV PRN (16:15)
[2021-11-05] MEDS ORDERED: ANTACID SUSP 30 ML UDC (MYLANTA) PO PRN (16:15)
[2021-11-05] MEDS ORDERED: ACETAMINOPHEN 325 MG TABLET PO PRN (16:15)
[2021-11-05] MEDS ORDERED: diphenhydrAMINE 50 MG/ML INJ (BENADRYL) IVP PRN (16:15)
[2021-11-05] MEDS ORDERED: PATIENT MAY USE OWN MEDS, ALL PO SCH (16:15)
[2021-11-05] MEDS ORDERED: BISACODYL 10 MG SUPP (DULCOLAX) PR PRN (16:15)
[2021-11-05] MEDS ORDERED: morphine INJ 4 MG/ML 1 ML (VIAL/SYRINGE) IV PRN (16:15)
[2021-11-05] MEDS ORDERED: polyethylene glycoL POWDER 17 GM (MIRALAX) PACK PO PRN (16:15)
[2021-11-05] MEDS ORDERED: MILK OF MAGNESIA 400 MG/5 ML 30 ML UDC PO PRN (16:15)
[2021-11-05] MEDS ORDERED: NALOXONE 0.4 MG/ML 1 ML (NARCAN) VIAL IV PRN (16:15)
[2021-11-05 16:22] VITALS: BP 106/65
[2021-11-05] MEDS ORDERED: RT-ALBUTEROL HFA 8.5 GM INHALER IH PRN (16:30)
--- NOTE | 2021-11-05 16:41 | History & Physical ---
EDGARDO SHARMA 11/05/21 1641: History of Present Illness History of Present Illness Reason for visit/HPI Chief complaint: Mo is a 81yo M who presented to the ER after passing out in his home. He was getting ready to take a shower and sat down on his toilet before getting in when he passed out. He denies falling or hitting his head on anything when it happened. He says his was right there when it happened and is the one who called EMS. For the past month he has been passing out and he says it is because of his low BP. His records his BP and he says that it has been as low as 90/59 before. Systolic BP was in the 70s when EMS picked him up. Reports that he has been congested the past two days and had diarrhea. He has felt fine besides that. He came to the ER on Friday for a different syncope episode. He tested positive for COVID in the ER and he is unvaccinated. He was put on 2L of oxygen. D-dimer and procalcitonin were elevated. ABG 7.46/32/86. Chest X-ray showed a density of the right lung base and CT had signs of bronchitis. HPI: PMH includes stroke, TIA, high cholesterol, GERD, arthrits, and prostatic cancer. He has had carotid stents placed and a cholecystectomy. His reoccurring syncope has been going on for about a month now. He has not had a diagnosis made for why it is happening. He has worn a heart monitor before and has been following up with a audio visual equipment rental clerk. Patient denies having any concerns or being in any pain during the interview. Date of Admission Nov 05, 2021 at 15:44 Date Seen by a Provider: Nov 05, 2021 Time Seen by a Provider: 15:30 I consulted on this patient on 11/05/21 16:25 Attending Physician Anabel Cabello DO Admitting Physician Anabel Cabello DO Consult Allergies and Home Medications Allergies Coded Allergies: aloe vera (Verified Allergy, Unknown, 05/01/21) cephalexin (Verified Allergy, Unknown, 05/01/21) influenza virus vaccine ts [id number] (36 mos,up) (Verified Allergy, Unknown, 05/01/21) Patient Home Medication List ALPRAZolam (Xanax Tablet) 0.25 Mg Tab, 0.25 MG PO Q8H PRN for ANXIETY Prescribed by: ANABEL CABELLO on 05/23/21 1224 Acetaminophen (Acetaminophen) 325 Mg Tablet, 650 MG PO Q4H PRN for PAIN-MILD (1- 4) Prescribed by: ANABEL CABELLO on 05/23/21 1223 Amlodipine Besylate (Amlodipine Besylate) 5 Mg Tablet, 5 MG PO DAILY Prescribed by: ANABEL CABELLO on 05/23/21 1223 Aspirin (Aspirin EC) 81 Mg Tablet.dr, 81 MG PO DAILY Prescribed by: ANABEL CABELLO on 05/23/21 1223 Atorvastatin Calcium (Atorvastatin Calcium) 80 Mg Tablet, 80 MG PO HS Prescribed by: ANABEL CABELLO on 05/23/21 1223 Cholecalciferol (Vitamin D3) (Vitamin D3) 125 Mcg Tablet, 125 MCG PO DAILY, (Reported) Entered as Reported by: GUEVARA MONTANO on 05/02/21 1510 Clopidogrel Bisulfate (Plavix) 75 Mg Tablet, 75 MG PO DAILY Prescribed by: ANABEL CABELLO on 05/23/21 1223 Diclofenac Sodium (Diclofenac Sodium) 100 Gm Gel..gram., 1 GM TOP QID PRN for Pain Prescribed by: ANABEL CABELLO on 05/23/21 1223 Famotidine (Famotidine) 20 Mg Tablet, 20 MG PO BID PRN for INDIGESTION Prescribed by: ANABEL CABELLO on 05/23/21 1223 Garlic (Garlic) 500 Mg Capsule, 500 MG PO DAILY, (Reported) Entered as Reported by: GUEVARA MONTANO on 05/02/21 1510 L. Acidophilus/L.bulgaricus (Lactobacillus Tablet) 1 Each Tablet, 1 EACH PO DAILY, (Reported) Entered as Reported by: GUEVARA MONTANO on 05/01/21 1156 Midodrine HCl (Midodrine HCl) 5 Mg Tablet, 5 MG PO BID Prescribed by: PARRISH PICKERING on 11/03/21 1316 Mirtazapine (Mirtazapine) 15 Mg Tab.rapdis, 7.5 MG PO HS Prescribed by: ANABEL CABELLO on 05/23/21 1223 Omega3,5,6,7,9 No.1/[place] Oil (Complete [place] Softgel) 1 Each Capsule, 1 EACH PO DAILY, (Reported) Entered as Reported by: GUEVARA MONTANO on 05/01/21 1156 Pantoprazole Sodium (Pantoprazole Sodium) 40 Mg Tablet.dr, 40 MG PO BID Prescribed by: ANABEL CABELLO on 05/23/21 1223 Potassium Chloride (Klor-Con 10) 10 Meq Tablet.er, 10 MEQ PO DAILY@0700 Prescribed by: ANABEL CABELLO on 05/23/21 1223 Tamsulosin HCl (Flomax) 0.4 Mg Cap, 0.4 MG PO DAILY@1800 Prescribed by: ANABEL CABELLO on 05/23/21 1223 Zinc Gluconate (Zinc) 10 Mg Lozenge, 10 MG PO DAILY, (Reported) Entered as Reported by: GUEVARA MONTANO on 05/02/21 1510 Past Azojact-Qbjdsh-Wyzqah Hx Patient Social History Marrital Status: Employed/Student: retired Tobacco Use?: No Use of E-Cig and/or Vaping dev: No Substance use?: No Alcohol Use?: No Pt feels they are or have been: No Immunizations Up To Date First/Initial COVID19 Vaccinat: NONE Second COVID19 Vaccination Sid: NONE Tetanus Booster (TDap): Unknown Current Status Communicates: Verbally Primary Language: Puerto [place]ican Preferred Spoken Language: [place]ican Is interpretation needed?: No Past Medical History Surgeries: Gallbladder, Vascular Surgery High Cholesterol, Hypertension Stroke, TIA Prostate Problems Gastroesophageal Reflux Arthritis Prostate Did You Recieve Any Treatments: Yes (Receiving ) Review of Systems Constitutional: No chills, No dizziness, No fever EENTM: no symptoms reported Respiratory: No cough, No short of breath Cardiovascular: No chest pain, No edema, No palpitations Gastrointestinal: No abdominal pain; diarrhea Genitourinary: No dysuria Musculoskeletal: no symptoms reported Skin: no symptoms reported Psychiatric/Neurological: No Symptoms Reported Physical Exam Vital Signs Vital Signs - First Documented 11/05/21 11/05/21 10:37 16:22 Temp 36.6 Pulse 79 Resp 13 B/P (MAP) 106/65 (79) Pulse Ox 95 O2 Delivery Room Air FiO2 21 Capillary Refill : Less Than 3 Seconds Height, Weight, BMI Height: '" Weight: lbs. oz. kg; 25.00 BMI Method: General Appearance: No Apparent Distress, WD/WN Eyes: Bilateral Eye Normal Inspection HEENT: PERRL/EOMI, Normal ENT Inspection Neck: Full Range of Motion, Normal Inspection, Non Tender Respiratory: Chest Non Tender, Lungs Clear, Normal Breath Sounds, No Accessory Muscle Use, No Respiratory Distress Cardiovascular: Regular Rate, Rhythm, No Edema, No Gallop, No Murmur Gastrointestinal: Normal Bowel Sounds, No Organomegaly, No Pulsatile Mass, Non Tender, Soft Extremity: Normal Capillary Refill, Normal Inspection Neurologic/Psychiatric: Alert, Oriented x3, Normal Mood/Affect, flatwork folder II-XII Norm as Tested, Motor Weakness (Left arm is weak due to previous stroke) Skin: Normal Color, Warm/Dry Assessment/Plan Assessment and Plan Problems: (1) Hypoxia Status: Acute (2) Dehydration Status: Acute (3) Prostate cancer Status: Acute (4) COVID-19 virus infection Status: Acute (5) Recurrent syncope Status: Acute Admission Diagnosis Assessment: Recurrent syncope Bronchitis COVID-19 Hypoxia Dehydration Prostate cancer HTN GERD High cholesterol DVT prophylaxis Ulcer prophylaxis Plan: Recurrent syncope - likely libertarian caused by dehydration - patient should have IV and oral fluids Bronchitis - viral bronchitis most likely - Continue to give albuterol and dexamethasone COVID-19 - monitor oxygen levels - repeat ABG should be done tomorrow Hypoxia - continue giving oxygen via nasal canula as needed Dehydration - Oral and IV fluids will be given Prostate cancer - restart home medication Tamsulosin DVT prophylaxis - Enoxaparin Ulcer prophylaxis -Pantoprazole Admission Status: Inpatient Order (span 2 midnights) Reason for Inpatient Admission: Bronchitis and recurrent syncope DESTINEYNEDIsrael MAGALLANES 11/06/21 0542: History of Present Illness History of Present Illness Reason for visit/HPI Chief complaint: Syncope History of present illness: This is an 81-year-old white male with a past medical history of CVA with left-sided weakness and CAD who presents to the ER with syncopal episode. We have adjusted blood pressure medications recently due to recurrent syncope episodes. Dr. Escobar has been consulted. He was swabbed for Covid and it was positive although he does not believe that Covid is real and he is a conspiracy. Allergies and Home Medications Allergies Coded Allergies: aloe vera (Verified Allergy, Unknown, 05/01/21) cephalexin (Verified Allergy, Unknown, 05/01/21) influenza virus vaccine ts [id number] (36 mos,up) (Verified Allergy, Unknown, 05/01/21) Patient Home Medication List Home Medication List Reviewed: Yes ALPRAZolam (Xanax Tablet) 0.25 Mg Tab, 0.25 MG PO Q8H PRN for ANXIETY Prescribed by: ANABEL CABELLO on 05/23/21 1224 Acetaminophen (Acetaminophen) 325 Mg Tablet, 650 MG PO Q4H PRN for PAIN-MILD (1- 4) Prescribed by: ANABEL CABELLO on 05/23/21 1223 Amlodipine Besylate (Amlodipine Besylate) 5 Mg Tablet, 5 MG PO DAILY Prescribed by: ANABEL CABELLO on 05/23/21 1223 Aspirin (Aspirin EC) 81 Mg Tablet.dr, 81 MG PO DAILY Prescribed by: ANABEL CABELLO on 05/23/21 1223 Atorvastatin Calcium (Atorvastatin Calcium) 80 Mg Tablet, 80 MG PO HS Prescribed by: ANABEL CABELLO on 05/23/21 1223 Cholecalciferol (Vitamin D3) (Vitamin D3) 125 Mcg Tablet, 125 MCG PO DAILY, (Reported) Entered as Reported by: GUEVARA MONTANO on 05/02/21 1510 Clopidogrel Bisulfate (Plavix) 75 Mg Tablet, 75 MG PO DAILY Prescribed by: ANABEL CABELLO on 05/23/21 1223 Diclofenac Sodium (Diclofenac Sodium) 100 Gm Gel..gram., 1 GM TOP QID PRN for Pain Prescribed by: ANABEL CABELLO on 05/23/21 1223 Famotidine (Famotidine) 20 Mg Tablet, 20 MG PO BID PRN for INDIGESTION Prescribed by: ANABEL CABELLO on 05/23/21 1223 Garlic (Garlic) 500 Mg Capsule, 500 MG PO DAILY, (Reported) Entered as Reported by: GUEVARA MONTANO on 05/02/21 1510 L. Acidophilus/L.bulgaricus (Lactobacillus Tablet) 1 Each Tablet, 1 EACH PO DAILY, (Reported) Entered as Reported by: GUEVARA MONTANO on 05/01/21 1156 Midodrine HCl (Midodrine HCl) 5 Mg Tablet, 5 MG PO BID Prescribed by: PARRISH PICKERING on 11/03/21 1316 Mirtazapine (Mirtazapine) 15 Mg Tab.rapdis, 7.5 MG PO HS Prescribed by: ANABEL CABELLO on 05/23/21 1223 Omega3,5,6,7,9 No.1/[place] Oil (Complete [place] Softgel) 1 Each Capsule, 1 EACH PO DAILY, (Reported) Entered as Reported by: GUEVARA MONTANO on 05/01/21 1156 Pantoprazole Sodium (Pantoprazole Sodium) 40 Mg Tablet.dr, 40 MG PO BID Prescribed by: ANABEL CABELLO on 05/23/21 1223 Potassium Chloride (Klor-Con 10) 10 Meq Tablet.er, 10 MEQ PO DAILY@0700 Prescribed by: ANABEL CABELLO on 05/23/21 1223 Tamsulosin HCl (Flomax) 0.4 Mg Cap, 0.4 MG PO DAILY@1800 Prescribed by: ANABEL CABELLO on 05/23/21 1223 Zinc Gluconate (Zinc) 10 Mg Lozenge, 10 MG PO DAILY, (Reported) Entered as Reported by: GUEVARA MONTANO on 05/02/21 1510 Past Wcrgtqe-Iyjcso-Igvhfk Hx Patient Social History Marrital Status: Employed/Student: retired Smoking Status: Former Smoker Past Medical History Surgeries: Coronary Stent Coronary Artery Disease, High Cholesterol, Hypertension Stroke Benign Prostatic Hyperpl Gastroesophageal Reflux Arthritis, Chronic Back Pain Review of Systems Constitutional: see HPI, dizziness, malaise, weakness EENTM: no symptoms reported Respiratory: no symptoms reported Cardiovascular: no symptoms reported Gastrointestinal: no symptoms reported Genitourinary: no symptoms reported Musculoskeletal: no symptoms reported Skin: no symptoms reported Psychiatric/Neurological: No Symptoms Reported All Other Systems Reviewed Negative Unless Noted: Yes Physical Exam General Appearance: No Apparent Distress, WD/WN, Chronically ill Eyes: Bilateral Eye Normal Inspection, Bilateral Eye PERRL, Bilateral Eye EOMI HEENT: PERRL/EOMI, Normal ENT Inspection, Pharynx Normal Neck: Full Range of Motion, Normal Inspection, Non Tender, Supple, Carotid Bruit Respiratory: Chest Non Tender, Lungs Clear, Normal Breath Sounds, No Accessory Muscle Use, No Respiratory Distress Cardiovascular: Regular Rate, Rhythm, No Edema, No Gallop, No JVD, No Murmur, Normal Peripheral Pulses Gastrointestinal: Normal Bowel Sounds, No Organomegaly, No Pulsatile Mass, Non Tender, Soft Back: Normal Inspection, No CVA Tenderness, No Vertebral Tenderness Extremity: Normal Capillary Refill, Normal Inspection, Normal Range of Motion, Non Tender, No Calf Tenderness, No Pedal Edema Neurologic/Psychiatric: Alert, Oriented x3, No Motor/Sensory Deficits, Normal Mood/Affect, Motor Weakness (Left arm is weak due to previous stroke) Skin: Normal Color, Warm/Dry Lymphatic: No Adenopathy Assessment/Plan Assessment and Plan Assessment: Acute on chronic recurrent syncopal episode Covid positive with mild hypoxia Previous stroke with left-sided weakness CAD previous stents Hypertension Hyperlipidemia Prostate cancer Plan: Supportive care Oxygen supplementation Supervisory-Addendum Brief Verification & Attestation Participated in pt care: history, MDM, physical Personally performed: exam, history, MDM, supervision of care Care discussed with: Medical Student Procedures: n/a Results interpretation: Verified all documentation Verification and Attestation of Medical Student E/M Service A medical student performed and documented this service in my presence. I rev iewed and verified all information documented by the medical student and made modifications to such information, when appropriate. I personally performed the physical exam and medical decision making. Anabel Cabello, Nov 06, 2021,05:42 EDGARDO SHARMA Nov 05, 2021 16:41 ANABEL CABELLO DO Nov 06, 2021 05:42
[2021-11-05] MEDS: NS IV 1000 ML 1,000 ML IV SCH (17:13)
[2021-11-05] MEDS: ENOXAPARIN 40 MG/0.4 ML (LOVENOX) SYR SC SCH (17:13)
[2021-11-05] MEDS: RT-ALBUTEROL HFA 8.5 GM INHALER IH SCH (20:15)
[2021-11-05] MEDS: SENNOSIDES 8.6 MG (SENOKOT) TAB PO SCH (22:09)
[2021-11-05] MEDS: DOCUSATE SODIUM 100 MG (COLACE) CAP PO SCH (22:09)
[2021-11-06] MEDS: RT-ALBUTEROL HFA 8.5 GM INHALER IH SCH ×4 (02:12→21:23)
[2021-11-06 05:58] LABS: BASOPHILS % (AUTO) 0 % (0-10); EOSINOPHILS % (AUTO) 0 % (0-10); HEMATOCRIT 34 % (40-54); HEMOGLOBIN 10.9 g/dL (13.3-17.7); LYMPHOCYTES # (AUTO) 0.7 10^3/uL (1.0-4.0); LYMPHOCYTES % (AUTO) 25 % (12-44); MEAN CORPUSCULAR HEMOGLOBIN 29 pg (25-34); MEAN CORPUSCULAR HGB CONC 32 g/dL (32-36); MEAN CORPUSCULAR VOLUME 90 fL (80-99); MEAN PLATELET VOLUME 9.7 fL (9.0-12.2); MONOCYTES # (AUTO) 0.3 10^3/uL (0.0-1.0); MONOCYTES % (AUTO) 11 % (0-12); NEUTROPHILS # (AUTO) 1.8 10^3/uL (1.8-7.8); NEUTROPHILS % (AUTO) 63 % (42-75); PLATELET COUNT 133 10^3/uL (130-400); WHITE BLOOD COUNT 2.8 10^3/uL (4.3-11.0)
[2021-11-06 06:19] LABS: BILIRUBIN,TOTAL 0.3 MG/DL (0.1-1.0); CALCIUM 7.8 MG/DL (8.5-10.1); CREATININE SERUM 0.82 MG/DL (0.60-1.30); POTASSIUM 3.4 MMOL/L (3.6-5.0); TOTAL PROTEIN 5.8 GM/DL (6.4-8.2)
[2021-11-06] MEDS ORDERED: KCL 20 MEQ TAB (K-DUR) PO ONE (06:45)
[2021-11-06] MEDS: CLOPIDOGREL 75 MG (PLAVIX) TABLET PO SCH (08:57)
[2021-11-06] MEDS: SENNOSIDES 8.6 MG (SENOKOT) TAB PO SCH ×2 (08:57→21:51)
[2021-11-06] MEDS: DOCUSATE SODIUM 100 MG (COLACE) CAP PO SCH ×2 (08:58→21:51)
[2021-11-06] MEDS: NS IV 1000 ML 1,000 ML IV SCH ×2 (09:24→17:46)
--- NOTE | 2021-11-06 09:29 | Consultation-Cardiology ---
HPI-Cardiology Cardiology Consultation: Date of Consultation 11/06/2021 Date of Admission 11/05/2021 Attending Physician Anabel Cabello DO Admitting Physician Anabel Cabello DO Consulting Physician JUAN CARLOS CHACKO JR, MD HPI: Time Seen by a Provider: 09:24 Chief Complaint: Reason for consultation: Syncope. At the pleasure of speaking with Mo on the cardiac stepdown unit at [facility] in [place], [place] this morning. I interviewed the patient from his doorway due to his positive COVID status. I actually know the patient from my office. He has a history of hypertension, hyperlipidemia, previous cerebrovascular accident with possible transient ischemic attacks prior to the stroke, bilateral carotid stenosis with right carotid endarterectomy in May 2021, gastroesophageal reflux disease, prostate carcinoma, and anemia. He lives in a house here in [place] with his . On Friday he had gotten up to use the bathroom to urinate and as he was walking to the bathroom, after about 3 steps he became extremely lightheaded and slid down onto the floor against the wall. His told him he was unconscious for short period of time. She called an ambulance and he was brought to the emergency room for further evaluation. While he was in the emergency room, he was having some low blood pressures but no significant arrhythmias. The ER provider called me that evening and I recommended that he be started on midodrine 5 mg twice daily and he received a fluid bolus. His symptoms improved and he was discharged home. Then yesterday he was sitting on the toilet and again felt lightheaded and had another syncopal spell. He did not fall off the toilet or injure himself. His called to the EMS again and he was brought to the hospital and admitted for further evaluation. He states that he has taken a couple of doses of the midodrine. He denies any palpitations. From time to time he gets a sharp focal pain in the left side of his chest near the costochondral junction. These are short-lived. He denies chest pressure. He denies dyspnea, paroxysmal nocturnal dyspnea, orthopnea, or lower extremity edema. Certain portions of this document may have been dictated utilizing voice recognition technology. Inherent to this technology, typographical and grammatical errors may exist. As much as I am diligent to identify and correct these mistakes, some errors may remain in the document. Review of Systems-Cardiology Review of Systems Other comments Review of 10 organ systems is as per the history of present illness, otherwise negative. All Other Systems Reviewed Negative Unless Noted: Yes TGK-Worowd-Ovywud Hx Patient Social History Marrital Status: Employed/Student: retired Smoking Status: Former Smoker Have you traveled recently?: No Alcohol Use?: No Pt feels they are or have been: No Past Medical History PMH As described under Assessment. Family Medical History Family Medical History: The patient does not know of any family history of premature coronary artery disease in first-degree relatives. Allergies and Home Medications Allergies Coded Allergies: aloe vera (Verified Allergy, Unknown, 05/01/21) cephalexin (Verified Allergy, Unknown, 05/01/21) influenza virus vaccine ts [id number] (36 mos,up) (Verified Allergy, Unkn own, 05/01/21) Patient Home Medication List Home Medication List Reviewed: Yes Acetaminophen (Acetaminophen) 325 Mg Tablet, 650 MG PO Q4H PRN for PAIN-MILD (1- 4) Prescribed by: ANABEL CABELLO on 05/23/21 1223 Last Action: Reviewed Aspirin (Aspirin EC) 81 Mg Tablet.dr, 81 MG PO DAILY, (Reported) Entered as Reported by: GUEVARA MONTANO on 11/06/21 101 Last Action: Reviewed Atorvastatin Calcium (Atorvastatin Calcium) 80 Mg Tablet, 80 MG PO HS, (Reported) Entered as Reported by: GUEVARA MONTANO on 11/06/21 101 Last Action: Reviewed Clopidogrel Bisulfate (Clopidogrel) 75 Mg Tablet, 75 MG PO DAILY, (Reported) Entered as Reported by: GUEVARA MONTANO on 11/06/21 101 Last Action: Reviewed Diclofenac Sodium (Diclofenac Sodium) 100 Gm Gel..gram., 1 APPLIC TP QID PRN for PAIN-BREAKTHROUGH, (Reported) Entered as Reported by: GUEVARA MONTANO on 11/06/21 101 Last Action: Reviewed Famotidine (Acid Lab Instructor (FAMOTIDINE)) 20 Mg Tablet, 20 MG PO DAILY, (Reported) Entered as Reported by: GUEVARA MONTANO on 11/06/21 101 Last Action: Reviewed Lactobacillus Combo No.10 (Probiotic) 1 Each Capsule, 1 EACH PO DAILY, (Reported) Entered as Reported by: GUEVARA MONTANO on 11/06/21 101 Last Action: Reviewed Midodrine HCl (Midodrine HCl) 5 Mg Tablet, 5 MG PO BID, (Reported) Entered as Reported by: GUEVARA MONTANO on 11/06/21 101 Last Action: Reviewed Omega3,5,6,7,9 No.1/Combs Oil (Complete [place] Softgel) 1 Each Capsule, 1 EACH PO DAILY, (Reported) Entered as Reported by: GUEVARA MONTANO on 05/01/21 1156 Last Action: Reviewed Pantoprazole Sodium (Pantoprazole Sodium) 40 Mg Tablet.dr, 40 MG PO BIDAC, (Reported) Entered as Reported by: GUEVARA MONTANO on 11/06/21 101 Last Action: Reviewed Tamsulosin HCl (Flomax) 0.4 Mg Cap, 0.4 MG PO 1800, (Reported) Entered as Reported by: GUEVARA MONTANO on 11/06/21 101 Last Action: Continued Discontinued Medications ALPRAZolam (Xanax Tablet) 0.25 Mg Tab, 0.25 MG PO Q8H PRN for ANXIETY Discontinued Reason: No Longer Taking Prescribed by: ANABEL CABELLO on 05/23/21 1224 Last Action: Discontinued Amlodipine Besylate (Amlodipine Besylate) 5 Mg Tablet, 5 MG PO DAILY Discontinued Reason: No Longer Taking Prescribed by: ANABEL CABELLO on 05/23/211222 Last Action: Discontinued Aspirin (Aspirin EC) 81 Mg Tablet.dr, 81 MG PO DAILY Discontinued Reason: No Longer Taking Prescribed by: ANABEL CABELLO on 05/23/21 1223 Last Action: Discontinued Atorvastatin Calcium (Atorvastatin Calcium) 80 Mg Tablet, 80 MG PO HS Discontinued Reason: No Longer Taking Prescribed by: ANABEL CABELLO on 05/23/213 Last Action: Discontinued Cholecalciferol (Vitamin D3) (Vitamin D3) 125 Mcg Tablet, 125 MCG PO DAILY, (Reported) Discontinued Reason: No Longer Taking Entered as Reported by: GUEVARA MONTANO on 05/02/21 1510 Last Action: Discontinued Clopidogrel Bisulfate (Plavix) 75 Mg Tablet, 75 MG PO DAILY Discontinued Reason: No Longer Taking Prescribed by: ANABEL CABELLO on 05/23/21 1223 Last Action: Discontinued Diclofenac Sodium (Diclofenac Sodium) 100 Gm Gel..gram., 1 GM TOP QID PRN for Pain Discontinued Reason: No Longer Taking Prescribed by: ANABEL CABELLO on 05/23/211222 Last Action: Discontinued Famotidine (Famotidine) 20 Mg Tablet, 20 MG PO BID PRN for INDIGESTION Discontinued Reason: No Longer Taking Prescribed by: ANABEL CABELLO on 05/23/211222 Last Action: Discontinued Garlic (Garlic) 500 Mg Capsule, 500 MG PO DAILY, (Reported) Discontinued Reason: No Longer Taking Entered as Reported by: GUEVARA MONTANO on 05/02/211509 Last Action: Discontinued L. Acidophilus/L.bulgaricus (Lactobacillus Tablet) 1 Each Tablet, 1 EACH PO DAILY, (Reported) Discontinued Reason: No Longer Taking Entered as Reported by: GUEVARA MONTANO on 05/01/21 115 Last Action: Discontinued Midodrine HCl (Midodrine HCl) 5 Mg Tablet, 5 MG PO BID Discontinued Reason: No Longer Taking Prescribed by: PARRISH PICKERING on 11/03/21 1316 Last Action: Discontinued Mirtazapine (Mirtazapine) 15 Mg Tab.rapdis, 7.5 MG PO HS Discontinued Reason: No Longer Taking Prescribed by: ANABEL CABELLO on 05/23/211222 Last Action: Discontinued Pantoprazole Sodium (Pantoprazole Sodium) 40 Mg Tablet.dr, 40 MG PO BID Discontinued Reason: No Longer Taking Prescribed by: ANABEL CABELLO on 05/23/211222 Last Action: Discontinued Potassium Chloride (Klor-Con 10) 10 Meq Tablet.er, 10 MEQ PO DAILY@0700 Discontinued Reason: No Longer Taking Prescribed by: ANABEL CABELLO on 05/23/211222 Last Action: Discontinued Tamsulosin HCl (Flomax) 0.4 Mg Cap, 0.4 MG PO DAILY@1800 Discontinued Reason: No Longer Taking Prescribed by: ANABEL CABELLO on 05/23/211222 Last Action: Discontinued Zinc Gluconate (Zinc) 10 Mg Lozenge, 10 MG PO DAILY, (Reported) Discontinued Reason: Prescription changed Entered as Reported by: GUEVARA MONTANO on 05/02/211509 Last Action: Reviewed Exam Vital Signs Vital Signs Date Time Temp Pulse Resp B/P (MAP) Pulse Ox O2 Delivery O2 Flow Rate FiO2 11/06/21 11:46 36.2 91 136/72 94 Nasal Cannula 2.00 11/05/21 20:00 22 11/05/21 16:22 21 Physical Exam Due to the patient's COVID status, I viewed the patient from the doorway. General: The patient is not on a ventilator. He is awake and alert. He appears well nourished and appears his stated age. HENT: Normocephalic. Atraumatic. Skin: There is no pallor. Neurologic: Oriented x3. Cranial nerves III through XII grossly intact. Moving all 4 extremities. Psychiatric: Appears cooperative. Labs Laboratory Tests Test 11/05/21 14:37 11/06/21 05:35 Range/Units Urine Color YELLOW Urine Clarity CLEAR Urine pH 7.0 5-9 Urine Specific [place] 1.010 L 1.016-1.022 Urine Protein NEGATIVE NEGATIVE Urine Glucose (UA) NEGATIVE NEGATIVE Urine Ketones NEGATIVE NEGATIVE Urine Nitrite NEGATIVE NEGATIVE Urine Bilirubin NEGATIVE NEGATIVE Urine Urobilinogen 0.2 < = 1.0 MG/DL Urine Leukocyte Esterase NEGATIVE NEGATIVE Urine RBC (Auto) TRACE-I H NEGATIVE Urine RBC 0-2 /HPF Urine WBC NONE /HPF Urine Crystals NONE /LPF Urine Bacteria NEGATIVE /HPF Urine Casts NONE /LPF Urine Mucus NEGATIVE /LPF Urine Culture Indicated NO White Blood Count 2.8 L 4.3-11.0 10^3/uL Red Blood Count 3.73 L 4.30-5.52 10^6/uL Hemoglobin 10.9 L 13.3-17.7 g/dL Hematocrit 34 L 40-54 % Mean Corpuscular Volume 90 80-99 fL Mean Corpuscular Hemoglobin 29 25-34 pg Mean Corpuscular Hemoglobin Concent 32 32-36 g/dL Red Cell Distribution Width 14.3 10.0-14.5 % Platelet Count 133 130-400 10^3/uL Mean Platelet Volume 9.7 9.0-12.2 fL Immature Granulocyte % (Auto) 0 % Neutrophils (%) (Auto) 63 42-75 % Lymphocytes (%) (Auto) 25 12-44 % Monocytes (%) (Auto) 11 0-12 % Eosinophils (%) (Auto) 0 0-10 % Basophils (%) (Auto) 0 0-10 % Neutrophils # (Auto) 1.8 1.8-7.8 10^3/uL Lymphocytes # (Auto) 0.7 L 1.0-4.0 10^3/uL Monocytes # (Auto) 0.3 0.0-1.0 10^3/uL Eosinophils # (Auto) 0.0 0.0-0.3 10^3/uL Basophils # (Auto) 0.0 0.0-0.1 10^3/uL Immature Granulocyte # (Auto) 0.0 0.0-0.1 10^3/uL Sodium Level 140 135-145 MMOL/L Potassium Level 3.4 L 3.6-5.0 MMOL/L Chloride Level 109 H 98-107 MMOL/L Carbon Dioxide Level 18 L 21-32 MMOL/L Anion Gap 13 5-14 MMOL/L Blood Urea Nitrogen 13 7-18 MG/DL Creatinine 0.82 0.60-1.30 MG/DL Estimat Glomerular Filtration Rate 88 BUN/Creatinine Ratio 16 Glucose Level 96 70-105 MG/DL Calcium Level 7.8 L 8.5-10.1 MG/DL Corrected Calcium 8.6 8.5-10.1 MG/DL Total Bilirubin 0.3 0.1-1.0 MG/DL Aspartate Amino Transf (AST/SGOT) 36 H 5-34 U/L Alanine Aminotransferase (ALT/SGPT) 32 0-55 U/L Alkaline Phosphatase 50 40-136 U/L Total Protein 5.8 L 6.4-8.2 GM/DL Albumin 3.0 L 3.2-4.5 GM/DL Radiology 30-DAY EVENT MONITOR REPORT (07/06/2021-08/04/2021): 1. This is a 30-day event recorder that was obtained for total of 28 days and 16 hours. 2. Baseline sinus rhythm with an average heart rate of 73 bpm, ranging from 50- 161 bpm with occasional, isolated premature supraventricular complexes representing 1% of the total recording time, one 22 beat episode of atrial tachycardia at a heart rate of 161 bpm, and rare, isolated premature ventricular complexes representing less than 1% of the total recording time and one 9 beat episode of accelerated idioventricular rhythm at a heart rate of 103 bpm. 3. There was no definitive evidence of atrial fibrillation. 4. There were 3 patient events that correlated to sinus rhythm with heart rates ranging from 72-75 bpm with no arrhythmias. ELECTROCARDIOGRAM (07/02/2021): Sinus rhythm with nonspecific anterolateral T wave changes. LABS (05/21/2021): Hemoglobin 10.7. Platelets 254,000. Sodium 140. Potassium 3.9. Creatinine 0.88. GFR 83. Alkaline phosphatase 72. AST 38 (upper cutoff 34). ALT 44. MRI BRAIN WITHOUT CONTRAST (04/28/2021): 1. Development of much worsened, multifocal new area of moderate to large ischemic infarct within the right temporal, parietal, occipital region and to a lesser degree of the right temporal lobe. Additional acute lacunar infarct within the right thalamus. 2. No hemorrhage, mass-effect, midline shift or hydrocephalus. ECHOCARDIOGRAM (04/28/2021): 1. No embolic source identified. This is essentially a normal study. CT ANGIOGRAM HEAD WITHOUT CONTRAST (04/27/2021): 1. Patient has history of embolic infarcts. At this time, there is no significant stenosis or occlusion of the [place]. 2. Extensive intracranial and distal bilateral ICA atherosclerotic plaques. 3. Mild vasospasm of both vertebral arteries. 4. Age-related cerebral changes. ULTRASOUND RIGHT CAROTID (04/27/2021): 1. Much improved previously seen significant right carotid stenosis. CTA NECK (04/27/2021): 1. Interval right carotid endarterectomy changes, with subcutaneous gas and drain. Much improved previously seen significant right ICA stenosis. 2. Mild 30% stenosis of the left ICA similar to prior exam. 3. Vertebral arteries are patent. RIGHT CAROTID ENDARTERECTOMY (04/27/2021): 1. Right carotid endarterectomy utilizing 8-14 mm intraluminal shunt and bovine pericardial patch angioplasty. ECG Impression ECG Comment Electrocardiogram from the emergency room on 11/05 shows sinus rhythm with first-degree AV block and borderline low voltage in the limb leads. Diagnosis/Problems Diagnosis/Problems (1) Syncope Status: Acute Assessment & Plan: I suspect this is due to orthostatic hypotension. I will increase his dose of midodrine. If he continues to have syncope, then we may need to consider an implantable loop recorder at that time. (2) Orthostatic hypotension Status: Acute Assessment & Plan: As above, I had the emergency room start him on midodrine over the weekend. He then had another episode of syncope and was having some low blood pressures in the emergency room. I will increase the midodrine from 5 mg twice daily to 5 mg 3 times daily. We may need to allow for some permissive hypertension to help avoid iatrogenic orthostatic hypotension. For the time being, I would not recommend restarting any outpatient antihypertensive medication that he may be taking. (3) Mixed hyperlipidemia Assessment & Plan: Continue statin. (4) Primary hypertension Assessment & Plan: Stop amolodipine and any other antihypertensive medications. (5) History of cerebrovascular accident Assessment & Plan: Continue clopidogrel and statin medication. (6) COVID-19 virus infection Status: Acute Assessment & Plan: Unclear whether or not this had anything to do with his syncope. The Covid infection is being managed by the hospitalist. JUAN CARLOS CHACKO JR, MD Nov 06, 2021 09:29
[2021-11-06] MEDS ORDERED: PANT40TA52 PO (10:19)
[2021-11-06] MEDS ORDERED: TMSL.4C PO (10:19)
[2021-11-06] MEDS ORDERED: ATOR80TA76 PO (10:19)
[2021-11-06] MEDS ORDERED: CLOP75TA28 PO (10:19)
[2021-11-06] MEDS ORDERED: DICL100G27 TP (10:19)
[2021-11-06] MEDS ORDERED: MIDO5TAB3 PO (10:19)
[2021-11-06] MEDS ORDERED: LACT1CAP72 PO (10:19)
[2021-11-06] MEDS ORDERED: ASPI-1238 PO (10:19)
[2021-11-06] MEDS ORDERED: FAMO20TA3 PO (10:19)
--- NOTE | 2021-11-06 11:23 | Occupational Therapy Eval ---
OT Evaluation-General/PLF Medical Diagnosis Admission Date Nov 05, 2021 at 15:44 Medical Diagnosis: reoccuring syncope Onset Date: Nov 05, 2021 Therapy Diagnosis Therapy Diagnosis: reduced adl status Precautions Precautions/Isolations: Airborne Isolation (Covid 19 +), Fall Prevention Referral Referral Reason: Evaluation/Treatment Medical History Pertinent Medical History: Arthritis, CVA, GERD Additional Medical History prostatic cancer Current History Pt presents to ER after passing out at home. He reports reoccurring syncope for past couple of months. Pt reports living in a single story home with . He receives assistance with dressing and bathing due to impaired functional use of LUE from CVA in April 2021. He is able to complete toileting and eating indep. He uses a single point cane for mobility. He was receiving outpatient therapy up until he started his cancer treatments. Reviewed History: Yes Social History Home: Single Level Current Living Status: Spouse Entry Into Home: Stairs With Railing Steps Into Home: 3 ADL-Prior Level of Function SCALE: Activities may be completed with or without assistive devices. 6-Etvapvyjvf-zbchznt completes the activity by him/herself with no assistance from a helper. 5-Set-up or Clean-up Assistance-helper sets up or cleans up; patient completes activity. Ponder assists only prior to or following the activity. 4-Supervision or Touching Assistance-helper provides verbal cues and/or touching/steadying and/or contact guard assistance as patient completes activity. Assistance may be provided throughout the activity or intermittently. 3-Partial/Moderate Assistance-helper does LESS THAN HALF the effort. Ponder lifts, holds or supports trunk or limbs, but provides less than half the effort. 2-Substantial/Maximal Assistance-helper does MORE THAN HALF the effort. Ponder lifts or holds trunk or limbs and provides more than half the effort. 8-Xfjcceapc-bmsavv does ALL the effort. Patient does none of the effort to complete the activity. Or, the assistance of 2 or more helpers is required for the patient to complete the activity. If activity was not attempted, code reason: 7-Patient Refused. 9-Not Applicable-not attempted and the patient did not perform the activity before the current illness, exacerbation or injury. 10-Not Attempted due to Environmental Limitations-(lack of equipment, weather restraints, etc.). 88-Not Attempted due to Medical Conditions or Safety Concerns. Self Care: Needed Some Help Functional Cognition: Needed Some Help DME/Equipment: Bath Chair, Grab Bars, Shower Drive Self: No OT Current Status Subjective Pt denies pain, reports dizziness at rest. Appearance Returned to supine in bed, all needs within reach. Mental Status/Objective Patient Orientation: Person, Place, Situation Attachments: IV, Telemetry Current Hand Dominance: Right Upper Extremity ROM Impaired LUE secondary to CVA in April 2021. PROM shoulder flex: ~70 degrees (to pain tolerance), full elbow flex/ext with extra time, poor coordination. finger opposition thumb to index only. ADL-Treatment On/Off Footwear (QC): 1 Toileting Hygiene (QC): 3 (per clinical judgment) Supine<>sit: CGA-Min A. C/o dizziness upon sitting upright. HR: 130's. Extra ti me to resolve. Dependent to don bilateral socks, yet pt reports this is baseline. He is aware of one handed techniques but reports that his performs task due to time requirements. Sit<>stand: CGA. Pt able to take 3-4 steps towards HOB with hand held assist. He reports increased dizziness following limited activity. Assist to return to supine. Complaints of pain when laying down on Left shoulder. Education on preferred technique to reduce pain and improve performance. Education OT Patient Education: Correct positioning, Energy conservation, Modified ADL techniques, Progress toward Goal/Update tx plan, Purpose of tx/functional activities, Safety issues, Transfer techniques Teaching Recipient: Patient Teaching Methods: Discussion Response to Teaching: Verbalize Understanding, Reinforcement Needed OT Soap Tender Goals Mcc Goals Time Frame: Nov 20, 2021 Eating (QC): 5 Oral Hygiene (QC): 5 Toileting Hygiene (QC): 4 Upper Body Dressing (QC): 4 Lower Body Dressing (QC): 4 On/Off Footwear (QC): 3 1=Demonstrate adherence to instructed precautions during ADL tasks. 2=Patient will verbalize/demonstrate understanding of assistive devices/modifications for ADL. 3=Patient will improve strength/tolerance for activity to enable patient to perform ADL's. OT Education/Plan Problem List/Assessment Assessment: Decreased Activ Tolerance, Decreased UE Strength, Impaired Bed Mobility, Impaired Coordination, Impaired Funct Balance, Impaired I ADL's, Impaired Self-Care Skills, Restricted Funct UE ROM Discharge Recommendations Plan/Recommendations: Continue POC Therapy Discharge Recommendati: Post Acute OT Treatment Plan/Plan of Care Treatment,Training & Education: Yes Patient would benefit from OT for education, treatment and training to promote independence in ADL's, mobility, safety and/or upper extremity function for ADL's. Plan of Care: ADL Retraining, Functional Mobility, Group Exercise/Act as Ind, UE Funct Exercise/Act, UE Neuromus Re-Ed/Coord Treatment Duration: Nov 20, 2021 Frequency: 3 times per week (3-5x/week) Estimated Hrs Per Day: .25 hour per day Agreement: Yes Rehab Potential: Fair Time/GCodes Start Time: 10:36 Stop Time: 10:56 Total Time Billed (hr/min): 20 Billed Treatment Time 1 visit Susi Crandall OT Nov 06, 2021 11:23
--- NOTE | 2021-11-06 12:11 | CONSULTATION REPORT ---
DATE OF SERVICE: 11/06/2021 ATTENDING PHYSICIAN: Dr. Garcia. SUMMARY: After reviewing the patient's record in the office, in the hospital, this is an 81-year-old white man known to me with prostate cancer, has been treated with ADT to be followed by [facility], [facility] and external beam radiation treatment. He was admitted because of CVA symptoms and was found to have some trouble urinating. He has been off his Flomax. He denies any hematuria. His urinalysis on admission is negative. IMPRESSION: CA of the prostate with voiding symptoms. PLAN: We will resume the Flomax and manage accordingly. Job ID: [id number] DocumentID: [id number] Dictated Date: 11/06/2021 11:59:22 Managing Consultant Clinical Professor Date: 11/06/2021 12:10:55 Dictated By: QING WAN MD
--- NOTE | 2021-11-06 12:41 | Progress Note ---
EDGARDO SHARMA 11/06/21 1241: Subjective Date Seen by a Provider: Nov 06, 2021 Time Seen by a Provider: 10:00 Subjective/Events-last exam Mo was awake watching television during the interview. He reported being up all night because of several trips to the restroom. He says there was blood in his urine and that it was difficult for him to form a stream. Was on 1L of oxygen and is normally on room air. Patient states that he feels weak and that he isn't able to physically do as much on his own such as sitting up in bed. His helps him get around at home. Review of Systems General: No Chills; Fatigue HEENT: No Head Aches, No Visual Changes Pulmonary: No Dyspnea, No Cough Cardiovascular: No: Chest Pain, Palpitations Gastrointestinal: No: Nausea, Vomiting, Abdominal Pain Genitourinary: Dysuria, Frequency (Increased), Hematuria Neurological: Weakness; No: Confusion Objective Exam Last Set of Vital Signs Vital Signs Date Time Temp Pulse Resp B/P (MAP) Pulse Ox O2 Delivery O2 Flow Rate FiO2 11/06/21 11:46 36.2 91 136/72 94 Nasal Cannula 2.00 11/05/21 20:00 22 11/05/21 16:22 21 Capillary Refill : Less Than 3 Seconds I&O Intake and Output 11/05/21 23:59 Intake Total 50 ml Balance 50 ml Intake Oral 50 ml # Voids 3 Daily Weight Change Unsure General: Alert, Oriented X3, Cooperative, No Acute Distress HEENT: Atraumatic Neck: Supple, No JVD Lungs: Clear to Auscultation, Normal Air Movement Heart: Regular Rate, No Murmurs Abdomen: Normal Bowel Sounds, Soft, No Tenderness Extremities: No Clubbing, No Cyanosis, No Edema Skin: No Rashes Neuro: Normal Speech, Normal Tone Results Lab Laboratory Tests 11/05/21 14:20: Blood Gas Puncture Site RR, Blood Gas Patient Temperature 36.6, Arterial Blood pH 7.46H, Arterial Blood Partial Pressure CO2 32L, Arterial Blood Partial Pressure O2 86, Arterial Blood HCO3 22L, Arterial Blood Total CO2 23.2, Arterial Blood Oxygen Saturation 98, Arterial Blood Base Excess -1.3, Magdi Test YES-POS, Blood Gas Ventilator Setting NO, Blood Gas Inspired Oxygen 2L 11/05/21 14:37: Urine Color YELLOW, Urine Clarity CLEAR, Urine pH 7.0, Urine Specific [place] 1.010L, Urine Protein NEGATIVE, Urine Glucose (UA) NEGATIVE, Urine Ketones NEGATIVE, Urine Nitrite NEGATIVE, Urine Bilirubin NEGATIVE, Urine Urobilinogen 0.2, Urine Leukocyte Esterase NEGATIVE, Urine RBC (Auto) TRACE-IH, Urine RBC 0- 2, Urine WBC NONE, Urine Crystals NONE, Urine Bacteria NEGATIVE, Urine Casts NONE, Urine Mucus NEGATIVE, Urine Culture Indicated NO 11/06/21 05:35: White Blood Count 2.8L, Red Blood Count 3.73L, Hemoglobin 10.9L, Hematocrit 34L, Mean Corpuscular Volume 90, Mean Corpuscular Hemoglobin 29, Mean Corpuscular Hemoglobin Concent 32, Red Cell Distribution Width 14.3, Platelet Count 133, Mean Platelet Volume 9.7, Immature Granulocyte % (Auto) 0, Neutrophils (%) (Auto) 63, Lymphocytes (%) (Auto) 25, Monocytes (%) (Auto) 11, Eosinophils (%) (Auto) 0, Basophils (%) (Auto) 0, Neutrophils # (Auto) 1.8, Lymphocytes # (Auto) 0.7L, Monocytes # (Auto) 0.3, Eosinophils # (Auto) 0.0, Basophils # (Auto) 0.0, Immature Granulocyte # (Auto) 0.0, Sodium Level 140, Potassium Level 3.4L, Chloride Level 109H, Carbon Dioxide Level 18L, Anion Gap 13, Blood Urea Nitrogen 13, Creatinine 0.82, Estimat Glomerular Filtration Rate 88, BUN/Creatinine Ratio 16, Glucose Level 96, Calcium Level 7.8L, Corrected Calcium 8.6, Total Bilirubin 0.3, Aspartate Amino Transf (AST/SGOT) 36H, Alanine Aminotransferase (ALT/SGPT) 32, Alkaline Phosphatase 50, Total Protein 5.8L, Albumin 3.0L Assessment/Plan Assessment/Plan Assess & Plan/Chief Complaint Assessment: Recurrent syncope Bronchitis COVID-19 Hypoxia Dehydration Prostate cancer Hematuria Hypokalemia Debility HTN GERD High cholesterol DVT prophylaxis Ulcer prophylaxis Stroke history Plan: Recurrent syncope - likely libertarian caused by dehydration so patient should have IV and oral fluids - midodrine was restarted from home medications - patient is unsure what medications he is taking exactly, there is concern he may still be taking amlodipine when he was not supposed to - a final review of his medication list will be needed before he can be discharged Bronchitis - viral bronchitis most likely from COVID - Continue to give albuterol and dexamethasone ID-19 - monitor oxygen levels - patient in isolation Hypoxia - continue giving oxygen via nasal canula as needed - patient should do trials of being on just room air Dehydration - Oral and IV fluids will be given Prostate cancer - Tamsulosin was restarted from home medications Hematuria - patient is currently receiving treatment for prostate cancer with injectable GnRH receptor antagonists which is most likely causing the hematuria - condition stable Hypokalemia - oral potassium started Debility - patient is being referred to work with PT/OT Stroke history - dual antiplatelet therapy of aspirin/clopidogrel was restarted from home medications DVT prophylaxis - Enoxaparin Ulcer prophylaxis -Pantoprazole Diagnosis/Problems Diagnosis/Problems (1) Hypoxia Status: Acute (2) Dehydration Status: Acute (3) Prostate cancer Status: Acute (4) COVID-19 virus infection Status: Acute (5) Recurrent syncope Status: Acute (6) Hypokalemia (7) Hematuria (8) Debility Clinical Quality Measures Admission Status Admission Dx Assessment: Recurrent syncope Bronchitis COVID-19 Hypoxia Dehydration Prostate cancer HTN GERD High cholesterol DVT prophylaxis Ulcer prophylaxis Plan: Recurrent syncope - likely libertarian caused by dehydration - patient should have IV and oral fluids Bronchitis - viral bronchitis most likely - Continue to give albuterol and dexamethasone - monitor oxygen levels - repeat ABG should be done tomorrow Hypoxia - continue giving oxygen via nasal canula as needed Dehydration - Oral and IV fluids will be given Prostate cancer - restart home medication Tamsulosin DVT prophylaxis - Enoxaparin Ulcer prophylaxis -Pantoprazole ANABEL CABELLO DO 11/07/21 0556: Subjective Subjective/Events-last exam Pt is doing about the same Transferring to 4th floor Overall very weak PT and OT and in-patient rehab will be ordered Dr. Valencia will see him for hematuria and frequency Flomax was restarted Review of Systems General: Fatigue, Malaise Objective Exam General: Alert, Oriented X3, Cooperative, No Acute Distress Lungs: Clear to Auscultation, Normal Air Movement Heart: Regular Rate, Normal S1, Normal S2, No Murmurs Psych/Mental Status: Mental Status NL, Mood NL Assessment/Plan Assessment/Plan Assess & Plan/Chief Complaint COVID-19 management Appreciate cardiology Orthostasis Supervisory-Addendum Brief Verification & Attestation Participated in pt care: history, MDM, physical Personally performed: exam, history, MDM, supervision of care Care discussed with: Medical Student Procedures: n/a Results interpretation: Verified all documentation Verification and Attestation of Medical Student E/M Service A medical student performed and documented this service in my presence. I revi ewed and verified all information documented by the medical student and made modifications to such information, when appropriate. I personally performed the physical exam and medical decision making. Anabel Cabello, Nov 07, 2021,05:55 EDGARDO SHARMA Nov 06, 2021 12:41 ANABEL CABELLO DO Nov 07, 2021 05:56
[2021-11-06] MEDS: MIDODRINE 10 MG (PROAMATINE) TAB PO SCH ×2 (12:45→20:13)
--- NOTE | 2021-11-06 14:43 | Physical Therapy Evaluation ---
PT Evaluation-General Medical Diagnosis Admission Date Nov 05, 2021 at 15:44 Medical Diagnosis: reoccuring syncope Onset Date: Nov 05, 2021 Therapy Diagnosis Therapy Diagnosis: impaired mobility, strength, endurance Precautions Precautions/Isolations: Airborne Isolation (Covid 19 +), Fall Prevention Weight Bear Status Right Lower Extremity: Right Weight Bearing/Tolerated Left Lower Extremity: Left Weight Bearing/Tolerated Referral Physician: Anabel Garcia DO Reason for Referral: Evaluation/Treatment Medical History Pertinent Medical History: Arthritis, CVA, GERD Additional Medical History Past Medical History Surgeries: Gallbladder, Vascular Surgery High Cholesterol, Hypertension Stroke, TIA Prostate Problems Gastroesophageal Reflux Arthritis Prostate Reviewed History: Yes Social History Home: Single Level Current Living Status: Spouse Entry Into Home: Stairs With Railing PT Steps Into Home: 4 Prior Prior Level of Function SCALE: Activities may be completed with or without assistive devices. 0-Iocoamnrsu-yoslkxx completes the activity by him/herself with no assistance from a helper. 5-Set-up or Clean-up Assistance-helper sets up or cleans up; patient completes activity. [place] assists only prior to or following the activity. 4-Supervision or Touching Assistance-helper provides verbal cues and/or touching/steadying and/or contact guard assistance as patient completes activity. Assistance may be provided throughout the activity or intermittently. 3-Partial/Moderate Assistance-helper does LESS THAN HALF the effort. [place] lifts, holds or supports trunk or limbs, but provides less than half the effort. 2-Substantial/Maximal Assistance-helper does MORE THAN HALF the effort. [place] lifts or holds trunk or limbs and provides more than half the effort. 4-Iigzcgnuz-ncstbr does ALL the effort. Patient does none of the effort to complete the activity. Or, the assistance of 2 or more helpers is required for the patient to complete the activity. If activity was not attempted, code reason: 7-Patient Refused. 9-Not Applicable-not attempted and the patient did not perform the activity before the current illness, exacerbation or injury. 10-Not Attempted due to Environmental Limitations-(lack of equipment, weather restraints, etc.). 88-Not Attempted due to Medical Conditions or Safety Concerns. Bed Mobility: 6 Transfers (B,C,W/C): 6 Gait: 6 Stairs: 6 Indoor Mobility (Ambulation): Independent Stairs: Independent Prior Device Use: [facility] [place] PT Evaluation-Current Subjective Patient in recliner pre tx, agrees to PT, has no complaints of pain. Pt/Family Goals to be independent at home Objective Patient Orientation: Person, Place, Situation Attachments: Oxygen ROM/Strength ROM Lower Extremities WNL Strength Lower Extremities RLE grossly 5/5, LLE grossly 4/5 Sensory Vision: Functional Hearing: Functional Hand Dominance: Right Sensation Right Lower Extremit: Intact Sensation Left Lower Extremity: Impaired Transfers Roll Left to Right (QC): 6 Sit to Lying (QC): 6 Sit to Stand (QC): 4 Chair/Gol-lv-Kjmub Xfer(QC): 4 Gait Does the Patient Walk?: Yes Mode of Locomotion: Walk Anticipated Mode of Locomotion: Walk Walk 10 feet (QC): 4 Distance: 30' Gait Assistive Device: None Comments/Gait Description patient ambulated 30' in his room without an assistive device with SBA, O2 was 93% post ambulation Balance Sitting Static: Normal Sitting Dynamic: Normal Standing Static: Good Standing Dynamic: Fair Treatment seated BLE exercises x20 (AP, LAQ) Assessment/Needs Patient in bed post tx with nurse call, phone, tray, all needs met. Patient has impaired mobility, strength, endurance. He would benefit using a SPC in his room, he cannot use the rolling walker in his room due to left hand weakness. Rehab Potential: Fair PT Respiratory Manager Goals Longterm Goals PT Respiratory Manager Goals Time Frame: Nov 13, 2021 Roll Left & Right (QC): 6 Sit to Lying (QC): 6 Lying-Sitting on Side/Bed(QC): 6 Sit to Stand (QC): 6 Chair/Itt-vi-Jesmu Xfer(QC): 6 Walk 10 feet (QC): 6 Walk 50ft with 2 Turns (QC): 6 PT Plan Problem List Problem List: Activity Tolerance, Functional Strength, Safety, Balance, Gait, Transfer, Bed Mobility, ROM Treatment/Plan Treatment Plan: Continue Plan of Care Treatment Plan: Bed Mobility, Education, Functional Activity Jose Carlos, Functional Strength, Gait, Safety, Therapeutic Exercise, Transfers Treatment Duration: Nov 13, 2021 Frequency: 6 times per week Estimated Hrs Per Day: .25 hour per day Patient and/or Family Agrees t: Yes Safety Risks/Education Patient Education: Gait Training, Transfer Techniques, Correct Positioning, Safety Issues Teaching Recipient: Patient Teaching Methods: Demonstration, Discussion Response to Teaching: Reinforcement Needed Discharge Recommendations Plan Patient will perform bed mobility and transfer training, balance and endurance training, functional strengthening, stair training, gait training, and education, to improve functional mobility and independence at home. Therapy Discharge Recommendati: Home & Family, Post Acute PT Time/GCodes Time In: 1418 Time Out: 1430 Total Billed Treatment Time: 12 Total Billed Treatment 1 visit EVL 12' FELIZ GRIMM PT Nov 06, 2021 14:43
[2021-11-06] MEDS: ENOXAPARIN 40 MG/0.4 ML (LOVENOX) SYR SC SCH (15:48)
[2021-11-06] MEDS ORDERED: TAMSULOSIN 0.4 MG (FLOMAX) CAP PO SCH (18:00)
[2021-11-06] MEDS ORDERED: ACETAMINOPHEN 325 MG TABLET PO PRN (19:15)
[2021-11-06] MEDS ORDERED: NON-FORMULARY MEDICATION 1 EA EA (Midodrine HCl 5 MG) PO SCH (21:00)
[2021-11-06] MEDS ORDERED: DICLOFENAC 1% GEL 100 GM (VOLTAREN) TUBE TOP PRN (22:15)
[2021-11-07] MEDS: RT-ALBUTEROL HFA 8.5 GM INHALER IH SCH ×2 (03:40→08:23)
[2021-11-07] MEDS: NS IV 1000 ML 1,000 ML IV SCH (06:09)
[2021-11-07 06:30] LABS: BASOPHILS % (AUTO) 0 % (0-10); EOSINOPHILS % (AUTO) 0 % (0-10); HEMATOCRIT 36 % (40-54); HEMOGLOBIN 11.4 g/dL (13.3-17.7); LYMPHOCYTES # (AUTO) 0.3 10^3/uL (1.0-4.0); LYMPHOCYTES % (AUTO) 14 % (12-44); MEAN CORPUSCULAR HEMOGLOBIN 29 pg (25-34); MEAN CORPUSCULAR HGB CONC 32 g/dL (32-36); MEAN CORPUSCULAR VOLUME 90 fL (80-99); MEAN PLATELET VOLUME 9.5 fL (9.0-12.2); MONOCYTES # (AUTO) 0.3 10^3/uL (0.0-1.0); MONOCYTES % (AUTO) 15 % (0-12); NEUTROPHILS # (AUTO) 1.6 10^3/uL (1.8-7.8); NEUTROPHILS % (AUTO) 70 % (42-75); PLATELET COUNT 161 10^3/uL (130-400); WHITE BLOOD COUNT 2.2 10^3/uL (4.3-11.0)
[2021-11-07 06:46] LABS: ALBUMIN 3.2 GM/DL (3.2-4.5); BILIRUBIN,TOTAL 0.3 MG/DL (0.1-1.0); CALCIUM 8.4 MG/DL (8.5-10.1); CREATININE SERUM 0.76 MG/DL (0.60-1.30); POTASSIUM 3.6 MMOL/L (3.6-5.0); TOTAL PROTEIN 6.2 GM/DL (6.4-8.2)
--- NOTE | 2021-11-07 06:54 | Progress Note - Urology ---
Progress Note-Urology Progress Notes/Assess & Plan Progress/Assessment & Plan VOIDING WELL. NO PROBLEM. NO HEMATURIA. TOLERATES FLOMAX WELL Final Diagnosis CA PROSTATE AND PROSTATISM QING WAN MD Nov 07, 2021 06:54
[2021-11-07] MEDS ORDERED: PANTOPRAZOLE 40 MG (PROTONIX) TAB PO SCH (07:00)
[2021-11-07] MEDS: CLOPIDOGREL 75 MG (PLAVIX) TABLET PO SCH (08:42)
[2021-11-07] MEDS: MIDODRINE 10 MG (PROAMATINE) TAB PO SCH (08:43)
[2021-11-07] MEDS: SENNOSIDES 8.6 MG (SENOKOT) TAB PO SCH (08:44)
[2021-11-07] MEDS: DOCUSATE SODIUM 100 MG (COLACE) CAP PO SCH (08:47)
[2021-11-07] MEDS ORDERED: MIDODRINE 10 MG (PROAMATINE) TAB PO SCH (09:00)
[2021-11-07] MEDS ORDERED: OMEGA 3 (FISH OIL) 1000 MG CAP PO SCH (09:00)
[2021-11-07] MEDS ORDERED: ASPIRIN E.C. 81 MG (ECOTRIN) TAB PO SCH (09:00)
[2021-11-07] MEDS ORDERED: LACTOBACILLUS ACIDOPHILUS (PROBIOTIC) CAPSULE PO SCH (09:00)
[2021-11-07] MEDS ORDERED: FAMOTIDINE 20 MG (PEPCID) TABLET PO SCH (09:00)
--- NOTE | 2021-11-07 10:15 | Cardiology Progress Note ---
Progress Note-Cardiology Events since last exam Date Seen by Provider: Nov 07, 2021 Time Seen by Provider: 10:14 Events since last exam I am following him due to orthostatic hypotension and recurrent syncope. He remains in isolation on the Covid unit but not the intensive care unit. I spoke to him from the doorway. He denies any further syncope since being in the hospital. He denies chest pain, dyspnea, palpitations, or ankle edema. Certain portions of this document may have been dictated utilizing voice recognition technology. Inherent to this technology, typographical and grammatical errors may exist. As much as I am diligent to identify and correct these mistakes, some errors may remain in the document. Vitals Last set of Vitals Signs Vital Signs 11/05/21 2 2 16:22 16:30 11:46 Temp 36.1 Pulse 74 Resp 18 B/P (MAP) 133/66 Pulse Ox 93 O2 Delivery Room Air O2 Flow Rate 2.00 FiO2 21 Labs Labs Laboratory Tests 11/07/21 06:05 Exam Vital Signs Vital Signs Date Time Temp Pulse Resp B/P (MAP) Pulse Ox O2 Delivery O2 Flow Rate FiO2 11/07/21 11:46 36.1 74 18 133/66 93 Room Air 11/06/21 16:30 2.00 11/05/21 16:22 21 Physical Exam Due to the patient's COVID status, I viewed the patient from the doorway. General: The patient is not on a ventilator. He is in no acute distress. HENT: Normocephalic. Atraumatic. Skin: There is no pallor. Neurologic: Oriented x3. Cranial nerves III through XII grossly intact. Moving all 4 extremities. Psychiatric: Appears cooperative. Labs Laboratory Tests Test 11/07/21 06:05 Range/Units White Blood Count 2.2 L 4.3-11.0 10^3/uL Red Blood Count 3.99 L 4.30-5.52 10^6/uL Hemoglobin 11.4 L 13.3-17.7 g/dL Hematocrit 36 L 40-54 % Mean Corpuscular Volume 90 80-99 fL Mean Corpuscular Hemoglobin 29 25-34 pg Mean Corpuscular Hemoglobin Concent 32 32-36 g/dL Red Cell Distribution Width 14.0 10.0-14.5 % Platelet Count 161 130-400 10^3/uL Mean Platelet Volume 9.5 9.0-12.2 fL Immature Granulocyte % (Auto) 1 % Neutrophils (%) (Auto) 70 42-75 % Lymphocytes (%) (Auto) 14 12-44 % Monocytes (%) (Auto) 15 H 0-12 % Eosinophils (%) (Auto) 0 0-10 % Basophils (%) (Auto) 0 0-10 % Neutrophils # (Auto) 1.6 L 1.8-7.8 10^3/uL Lymphocytes # (Auto) 0.3 L 1.0-4.0 10^3/uL Monocytes # (Auto) 0.3 0.0-1.0 10^3/uL Eosinophils # (Auto) 0.0 0.0-0.3 10^3/uL Basophils # (Auto) 0.0 0.0-0.1 10^3/uL Immature Granulocyte # (Auto) 0.0 0.0-0.1 10^3/uL Sodium Level 143 135-145 MMOL/L Potassium Level 3.6 3.6-5.0 MMOL/L Chloride Level 112 H 98-107 MMOL/L Carbon Dioxide Level 20 L 21-32 MMOL/L Anion Gap 11 5-14 MMOL/L Blood Urea Nitrogen 14 7-18 MG/DL Creatinine 0.76 0.60-1.30 MG/DL Estimat Glomerular Filtration Rate 90 BUN/Creatinine Ratio 18 Glucose Level 136 H 70-105 MG/DL Calcium Level 8.4 L 8.5-10.1 MG/DL Corrected Calcium 9.0 8.5-10.1 MG/DL Total Bilirubin 0.3 0.1-1.0 MG/DL Aspartate Amino Transf (AST/SGOT) 33 5-34 U/L Alanine Aminotransferase (ALT/SGPT) 31 0-55 U/L Alkaline Phosphatase 59 40-136 U/L Total Protein 6.2 L 6.4-8.2 GM/DL Albumin 3.2 3.2-4.5 GM/DL Diagnosis/Problems Diagnosis/Problems (1) Syncope Status: Acute Assessment & Plan: I suspect this is due to orthostatic hypotension. There is no evidence of Hgqyi-Jnuoeysvc-Qoxpd, Brugada syndrome, or prolonged QT on his resting electrocardiogram. I increase his dose of midodrine. If he continues to have syncope despite the medication change, then we may need to consider an implantable loop recorder at that time. There are no strong indications for tilt table testing at this point in time. His symptoms do not necessarily sound consistent with vasovagal syncope which is typically what we would use a tilt table test to confirm. (2) Orthostatic hypotension Status: Acute Assessment & Plan: As above, I had the emergency room start him on midodrine over the weekend. He then had another episode of syncope and was having some low blood pressures in the emergency room. I increased the midodrine from 5 mg twice daily to 5 mg 3 times daily. We may need to allow for some permissive hypertension to help avoid iatrogenic orthostatic hypotension. For the time being, I would not recommend restarting any outpatient antihypertensive medication that he may be taking. (3) Mixed hyperlipidemia Assessment & Plan: Continue statin. (4) Primary hypertension Assessment & Plan: Stop amolodipine and any other antihypertensive medications. As above, we may need to allow for some permissive hypertension to help avoid iatrogenic hypotension which may be causing him to have syncope. (5) History of cerebrovascular accident Assessment & Plan: Continue clopidogrel and statin medication. (6) COVID-19 virus infection Status: Acute Assessment & Plan: Unclear whether or not this had anything to do with his syncope. The Covid infection is being managed by the hospitalist. JUAN CARLOS CHACKO JR, MD Nov 07, 2021 10:15
[2021-11-07] MEDS ORDERED: RT-ALBUINH IH (11:45)
[2021-11-07] MEDS ORDERED: MIDO10TA PO (11:45)
[2021-11-07] MEDS ORDERED: DEXA6TAB6 PO (11:45)
--- NOTE | 2021-11-07 11:47 | Discharge Summary ---
Diagnosis/Chief Complaint Date of Admission Nov 05, 2021 at 15:44 Date of Discharge Discharge Date: Nov 07, 2021 Discharge Diagnosis Admission Dx Assessment: Recurrent syncope Bronchitis COVID-19 Hypoxia Dehydration Prostate cancer HTN GERD High cholesterol DVT prophylaxis Ulcer prophylaxis Plan: Recurrent syncope - likely constitution party caused by dehydration - patient should have IV and oral fluids Bronchitis - viral bronchitis most likely - Continue to give albuterol and dexamethasone COVID-19 - monitor oxygen levels - repeat ABG should be done tomorrow Hypoxia - continue giving oxygen via nasal canula as needed Dehydration - Oral and IV fluids will be given Prostate cancer - restart home medication Tamsulosin DVT prophylaxis - Enoxaparin Ulcer prophylaxis -Pantoprazole Reason Hospital Visit Chief complaint: Syncope History of present illness: This is an 81-year-old white male with a past medical history of CVA with left-sided weakness and CAD who presents to the ER with syncopal episode. We have adjusted blood pressure medications recently due to recurrent syncope episodes. Dr. Escobar has been consulted. He was swabbed for Covid and it was positive although he does not believe that Covid is real and he is a conspiracy. Discharge Summary Discharge Physical Examination Allergies: Coded Allergies: aloe vera (Verified Allergy, Unknown, 05/01/21) cephalexin (Verified Allergy, Unknown, 05/01/21) influenza virus vaccine ts [id number] (36 mos,up) (Verified Allergy, Unknown, 05/01/21) Vitals & I&Os Vital Signs Date Time Temp Pulse Resp B/P (MAP) Pulse Ox O2 Delivery O2 Flow Rate FiO2 11/07/21 11:46 36.1 74 18 133/66 93 Room Air 11/06/21 16:30 2.00 11/05/21 16:22 21 General Appearance: Alert, Oriented X3, Cooperative Respiratory: Clear to Auscultation Cardiovascular: Regular Rate Psych/Mental Status: Mental Status NL Hospital Course Was the Problem List Reviewed?: Yes Hospital course: Mo is a 81yo M with a PMH includes stroke, TIA, high cholesterol, GERD, arthrits, and prostatic cancer. He presented to the [place] ER on 11/05/21 after passing out in his home. He was getting ready to take a shower and sat down on his toilet before getting in when he passed out. He denied falling or hitting his head on anything when it happened. He says his was right there when it happened and is the one who called EMS. For the past month he has been having episodes of syncope and low blood pressure which is being investigated by Dr. Ragland the sifter and miller. His records his BP and he says that it has been as low as 90/59 before. Systolic BP was in the 70s when EMS picked him up. He came to the ER on Friday for a different syncope episode and was prescribed midodrine which he says he has taken a few times since leaving the ER. He tested positive for COVID in the ER and he is unvaccinated. He was put on 2L of oxygen while in the ER. D-dimer and procalcitonin were elevated. ABG 7.46/32/86. Chest X-ray showed a density of the right lung base and CT had signs of bronchitis. Patient admitted for bronchitis due to COVID and recurrent syncope. On his second day in the hospital the patient was on 1L of oxygen via nasal cannula and he developed hematuria. The hematuria was likely from his treatment for prostate cancer. On his third day of his hospital stay he was on room air and his hematuria had resolved. At no point during his hospital stay did the patient develop a cough or feel short of breath. Cardiology consulted with him and decided to increase his dose Midodrine 5mg to 3 times a day to prevent the syncope. Patient worked with PT and OT to regain strength and return him to his baseline. Patient is being discharged with the increased dose of Midodrine, dexamethasone 60mg daily, and Albuterol inhaler. Labs (last 24 hrs) Laboratory Tests 11/05/21 10:45: White Blood Count 6.7, Red Blood Count 4.15L, Hemoglobin 11.9L, Hematocrit 38L, Mean Corpuscular Volume 91, Mean Corpuscular Hemoglobin 29, Mean Corpuscular Hemoglobin Concent 32, Red Cell Distribution Width 14.2, Platelet Count 156, Mean Platelet Volume 9.4, Immature Granulocyte % (Auto) 0, Neutrophils (%) (Auto) 78H, Lymphocytes (%) (Auto) 17, Monocytes (%) (Auto) 5, Eosinophils (%) (Auto) 0, Basophils (%) (Auto) 0, Neutrophils # (Auto) 5.3, Lymphocytes # (Auto) 1.1, Monocytes # (Auto) 0.3, Eosinophils # (Auto) 0.0, Basophils # (Auto) 0.0, Immature Granulocyte # (Auto) 0.0, Erythrocyte Sedimentation Rate 42H, Prothrombin Time 13.8, INR Comment 1.0, Activated Partial Thromboplast Time 40H, D-Dimer 1.15H, Sodium Level 138, Potassium Level 3.6, Chloride Level 104, Carbon Dioxide Level 23, Anion Gap 11, Blood Urea Nitrogen 17, Creatinine 1.17, Estimat Glomerular Filtration Rate 62, BUN/Creatinine Ratio 15, Glucose Level 149H, Calcium Level 8.4L, Corrected Calcium 8.8, Magnesium Level 1.8, Total Bilirubin 0.5, Aspartate Amino Transf (AST/SGOT) 36H, Alanine Aminotransferase (ALT/SGPT) 37, Alkaline Phosphatase 55, Total Creatine Kinase 49, Creatine Kinase MB 0.2, Myoglobin 65.1, Troponin I < 0.028, C-Reactive Protein High Sensitivity 5.80H, B-Type Natriuretic Peptide 23.6, Total Protein 6.7, Albumin 3.5, Procalcitonin 0.12H, TSH [place] Testing 1.76, Total Cortisol 24.7H 11/05/21 10:50: Influenza Type A (RT-PCR) Not Detected, Influenza Type B (RT-PCR) Not Detected, SARS-CoV-2 RNA (RT-PCR) DetectedH 11/05/21 14:20: Blood Gas Puncture Site RR, Blood Gas Patient Temperature 36.6, Arterial Blood pH 7.46H, Arterial Blood Partial Pressure CO2 32L, Arterial Blood Partial Pressure O2 86, Arterial Blood HCO3 22L, Arterial Blood Total CO2 23.2, Arterial Blood Oxygen Saturation 98, Arterial Blood Base Excess -1.3, Magdi Test YES-POS, Blood Gas Ventilator Setting NO, Blood Gas Inspired Oxygen 2L 11/05/21 14:37: Urine Color YELLOW, Urine Clarity CLEAR, Urine pH 7.0, Urine Specific [place] 1.010L, Urine Protein NEGATIVE, Urine Glucose (UA) NEGATIVE, Urine Ketones NEGATIVE, Urine Nitrite NEGATIVE, Urine Bilirubin NEGATIVE, Urine Urobilinogen 0.2, Urine Leukocyte Esterase NEGATIVE, Urine RBC (Auto) TRACE-IH, Urine RBC 0- 2, Urine WBC NONE, Urine Crystals NONE, Urine Bacteria NEGATIVE, Urine Casts NONE, Urine Mucus NEGATIVE, Urine Culture Indicated NO 11/06/21 05:35: White Blood Count 2.8L, Red Blood Count 3.73L, Hemoglobin 10.9L, Hematocrit 34L, Mean Corpuscular Volume 90, Mean Corpuscular Hemoglobin 29, Mean Corpuscular Hemoglobin Concent 32, Red Cell Distribution Width 14.3, Platelet Count 133, Mean Platelet Volume 9.7, Immature Granulocyte % (Auto) 0, Neutrophils (%) (Auto) 63, Lymphocytes (%) (Auto) 25, Monocytes (%) (Auto) 11, Eosinophils (%) (Auto) 0, Basophils (%) (Auto) 0, Neutrophils # (Auto) 1.8, Lymphocytes # (Auto) 0.7L, Monocytes # (Auto) 0.3, Eosinophils # (Auto) 0.0, Basophils # (Auto) 0.0, Immature Granulocyte # (Auto) 0.0, Sodium Level 140, Potassium Level 3.4L, Chloride Level 109H, Carbon Dioxide Level 18L, Anion Gap 13, Blood Urea Nitrogen 13, Creatinine 0.82, Estimat Glomerular Filtration Rate 88, BUN/Creatinine Ratio 16, Glucose Level 96, Calcium Level 7.8L, Corrected Calcium 8.6, Total Bilirubin 0.3, Aspartate Amino Transf (AST/SGOT) 36H, Alanine Aminotransferase (ALT/SGPT) 32, Alkaline Phosphatase 50, Total Protein 5.8L, Albumin 3.0L 11/07/21 06:05: White Blood Count 2.2L, Red Blood Count 3.99L, Hemoglobin 11.4L, Hematocrit 36L, Mean Corpuscular Volume 90, Mean Corpuscular Hemoglobin 29, Mean Corpuscular Hemoglobin Concent 32, Red Cell Distribution Width 14.0, Platelet Count 161, Mean Platelet Volume 9.5, Immature Granulocyte % (Auto) 1, Neutrophils (%) (Auto) 70, Lymphocytes (%) (Auto) 14, Monocytes (%) (Auto) 15H, Eosinophils (%) (Auto) 0, Basophils (%) (Auto) 0, Neutrophils # (Auto) 1.6L, Lymphocytes # (Auto) 0.3L, Monocytes # (Auto) 0.3, Eosinophils # (Auto) 0.0, Basophils # (Auto) 0.0, Immature Granulocyte # (Auto) 0.0, Sodium Level 143, Potassium Level 3.6, Chloride Level 112H, Carbon Dioxide Level 20L, Anion Gap 11, Blood Urea Nitrogen 14, Creatinine 0.76, Estimat Glomerular Filtration Rate 90, BUN/Creatinine Ratio 18, Glucose Level 136H, Calcium Level 8.4L, Corrected Calcium 9.0, Total Bilirubin 0.3, Aspartate Amino Transf (AST/SGOT) 33, Alanine Aminotransferase (ALT/SGPT) 31, Alkaline Phosphatase 59, Total Protein 6.2L, Albumin 3.2 Pending Labs Laboratory Tests 11/05/21 10:45: White Blood Count 6.7, Red Blood Count 4.15, Hemoglobin 11.9, Hematocrit 38, Mean Corpuscular Volume 91, Mean Corpuscular Hemoglobin 29, Mean Corpuscular Hemoglobin Concent 32, Red Cell Distribution Width 14.2, Platelet Count 156, Mean Platelet Volume 9.4, Immature Granulocyte % (Auto) 0, Neutrophils (%) (Auto) 78, Lymphocytes (%) (Auto) 17, Monocytes (%) (Auto) 5, Eosinophils (%) (Auto) 0, Basophils (%) (Auto) 0, Neutrophils # (Auto) 5.3, Lymphocytes # (Auto) 1.1, Monocytes # (Auto) 0.3, Eosinophils # (Auto) 0.0, Basophils # (Auto) 0.0, Immature Granulocyte # (Auto) 0.0, Erythrocyte Sedimentation Rate 42, Prothrombin Time 13.8, INR Comment 1.0, Activated Partial Thromboplast Time 40, D-Dimer 1.15, Sodium Level 138, Potassium Level 3.6, Chloride Level 104, Carbon Dioxide Level 23, Anion Gap 11, Blood Urea Nitrogen 17, Creatinine 1.17, Estimat Glomerular Filtration Rate 62, BUN/Creatinine Ratio 15, Glucose Level 149, Calcium Level 8.4, Corrected Calcium 8.8, Magnesium Level 1.8, Total Bilirubin 0.5, Aspartate Amino Transf (AST/SGOT) 36, Alanine Aminotransferase (ALT/SGPT) 37, Alkaline Phosphatase 55, Total Creatine Kinase 49, Creatine Kinase MB 0.2, Myoglobin 65.1, Troponin I < 0.028, C-Reactive Protein High Sensitivity 5.80, B- Type Natriuretic Peptide 23.6, Total Protein 6.7, Albumin 3.5, Procalcitonin 0.12, TSH [place] Testing 1.76, Total Cortisol 24.7 11/05/21 10:50: Influenza Type A (RT-PCR) Not Detected, Influenza Type B (RT-PCR) Not Detected, SARS-CoV-2 RNA (RT-PCR) Detected 11/05/21 14:20: Blood Gas Puncture Site RR, Blood Gas Patient Temperature 36.6, Arterial Blood pH 7.46, Arterial Blood Partial Pressure CO2 32, Arterial Blood Partial Pressure O2 86, Arterial Blood HCO3 22, Arterial Blood Total CO2 23.2, Arterial Blood Oxygen Saturation 98, Arterial Blood Base Excess -1.3, Magdi Test YES-POS, Blood Gas Ventilator Setting NO, Blood Gas Inspired Oxygen 2L 11/05/21 14:37: Urine Color YELLOW, Urine Clarity CLEAR, Urine pH 7.0, Urine Specific [place] 1.010, Urine Protein NEGATIVE, Urine Glucose (UA) NEGATIVE, Urine Ketones NEGATIVE, Urine Nitrite NEGATIVE, Urine Bilirubin NEGATIVE, Urine Urobilinogen 0.2, Urine Leukocyte Esterase NEGATIVE, Urine RBC (Auto) TRACE-I, Urine RBC 0-2, Urine WBC NONE, Urine Crystals NONE, Urine Bacteria NEGATIVE, Urine Casts NONE, Urine Mucus NEGATIVE, Urine Culture Indicated NO 11/06/21 05:35: White Blood Count 2.8, Red Blood Count 3.73, Hemoglobin 10.9, Hematocrit 34, Mean Corpuscular Volume 90, Mean Corpuscular Hemoglobin 29, Mean Corpuscular Hemoglobin Concent 32, Red Cell Distribution Width 14.3, Platelet Count 133, Mean Platelet Volume 9.7, Immature Granulocyte % (Auto) 0, Neutrophils (%) (Auto) 63, Lymphocytes (%) (Auto) 25, Monocytes (%) (Auto) 11, Eosinophils (%) (Auto) 0, Basophils (%) (Auto) 0, Neutrophils # (Auto) 1.8, Lymphocytes # (Auto) 0.7, Monocytes # (Auto) 0.3, Eosinophils # (Auto) 0.0, Basophils # (Auto) 0.0, Immature Granulocyte # (Auto) 0.0, Sodium Level 140, Potassium Level 3.4, Chloride Level 109, Carbon Dioxide Level 18, Anion Gap 13, Blood Urea Nitrogen 13, Creatinine 0.82, Estimat Glomerular Filtration Rate 88, BUN/Creatinine Ratio 16, Glucose Level 96, Calcium Level 7.8, Corrected Calcium 8.6, Total Bilirubin 0.3, Aspartate Amino Transf (AST/SGOT) 36, Alanine Aminotransferase (ALT/SGPT) 32, Alkaline Phosphatase 50, Total Protein 5.8, Albumin 3.0 11/07/21 06:05: White Blood Count 2.2, Red Blood Count 3.99, Hemoglobin 11.4, Hematocrit 36, Mean Corpuscular Volume 90, Mean Corpuscular Hemoglobin 29, Mean Corpuscular He moglobin Concent 32, Red Cell Distribution Width 14.0, Platelet Count 161, Mean Platelet Volume 9.5, Immature Granulocyte % (Auto) 1, Neutrophils (%) (Auto) 70, Lymphocytes (%) (Auto) 14, Monocytes (%) (Auto) 15, Eosinophils (%) (Auto) 0, Basophils (%) (Auto) 0, Neutrophils # (Auto) 1.6, Lymphocytes # (Auto) 0.3, Monocytes # (Auto) 0.3, Eosinophils # (Auto) 0.0, Basophils # (Auto) 0.0, Immature Granulocyte # (Auto) 0.0, Sodium Level 143, Potassium Level 3.6, Chloride Level 112, Carbon Dioxide Level 20, Anion Gap 11, Blood Urea Nitrogen 14, Creatinine 0.76, Estimat Glomerular Filtration Rate 90, BUN/Creatinine Ratio 18, Glucose Level 136, Calcium Level 8.4, Corrected Calcium 9.0, Total Bilirubin 0.3, Aspartate Amino Transf (AST/SGOT) 33, Alanine Aminotransferase (ALT/SGPT) 31, Alkaline Phosphatase 59, Total Protein 6.2, Albumin 3.2 Discharge Home Medications: Active Scripts Active Decadron (Dexamethasone) 6 Mg Tablet 6 Mg PO DAILY Proair Hfa (Albuterol Sulfate) 1 Puff Puff 2 Puff IH Q4H 1 PUFF = 90 MCG Midodrine HCl 10 Mg Tablet 5 Mg PO TID Acetaminophen 325 Mg Tablet 650 Mg PO Q4H PRN Reported Probiotic (Lactobacillus Combo No.10) 1 Each Capsule 1 Each PO DAILY Diclofenac Sodium 100 Gm Gel..gram. 1 Applic TP QID PRN APPLY TO AFFECTED AREAS Pantoprazole Sodium 40 Mg Tablet.dr 40 Mg PO BIDAC Atorvastatin Calcium 80 Mg Tablet 80 Mg PO HS BREAKS THE TAB IN HALF AND TAKES BOTH HALVES AT THE SAME TIME Flomax (Tamsulosin HCl) 0.4 Mg Cap 0.4 Mg PO 1800 Clopidogrel (Clopidogrel Bisulfate) 75 Mg Tablet 75 Mg PO DAILY Acid Risk Control Analyst (FAMOTIDINE) (Famotidine) 20 Mg Tablet 20 Mg PO DAILY Complete Story Softgel (Omega3,5,6,7,9 No.1/Pitcher Oil) 1 Each Capsule 1 Each PO DAILY Instructions to patient/family Please see electronic discharge instructions given to patient. GUILLERMO CABELLO DO Nov 07, 2021 11:47
--- NOTE | 2021-11-07 11:58 | Occupational Ther Daily Note ---
OT Current Status-Daily Note Subjective Pt in bed, agreeable to OT Tx. Mental Status/Objective Patient Orientation: Person, Place, Situation ADL-Treatment Therapy Code Descriptions/Definitions Functional [place] Measure: 0=Not Assessed/NA 4=Minimal Assistance 1=Total Assistance 5=Supervision or Setup 2=Maximal Assistance 6=Modified [place] 3=Moderate Assistance 7=Complete IndependenceSCALE: Activities may be completed with or without assistive devices. 8-Bchumxpdrl-cczlmaz completes the activity by him/herself with no assistance from a helper. 5-Set-up or Clean-up Assistance-helper sets up or cleans up; patient completes activity. [place] assists only prior to or following the activity. 4-Supervision or Touching Assistance-helper provides verbal cues and/or touching/steadying and/or contact guard assistance as patient completes activity. Assistance may be provided throughout the activity or intermittently. 3-Partial/Moderate Assistance-helper does LESS THAN HALF the effort. [place] lifts, holds or supports trunk or limbs, but provides less than half the effort. 2-Substantial/Maximal Assistance-helper does MORE THAN HALF the effort. [place] lifts or holds trunk or limbs and provides more than half the effort. 3-Rnfwnqwah-wtagtk does ALL the effort. Patient does none of the effort to complete the activity. Or, the assistance of 2 or more helpers is required for the patient to complete the activity. If activity was not attempted, code reason: 7-Patient Refused. 9-Not Applicable-not attempted and the patient did not perform the activity before the current illness, exacerbation or injury. 10-Not Attempted due to Environmental Limitations-(lack of equipment, weather restraints, etc.). 88-Not Attempted due to Medical Conditions or Safety Concerns. Eating (QC): 5 (set up to open pudding container, pt able to stabilize with LUE and eat with RUE) Other Treatment Pt in bed, agreeable to OT tx. Pt looking for razor in his bags. OT located electric razor and handed to pt, pt able to push button to turn razor on, then bring to face. Pt had not taken off the plastic cover on the razor, OT removed cover, then handed back to pt. Pt able to shave his face with set up assistance. Pt wanting to eat pudding, but unable to open. OT opened pudding, then placed on tray table. Pt able to reach for pudding with RUE, place in LUE for stabilization, then hold utensil in RUE to eat. Post tx, pt in bed, call light in reach and all needs met. Education OT Patient Education: Correct positioning, Energy conservation, Modified ADL techniques, Progress toward Goal/Update tx plan, Purpose of tx/functional activities, Rehab process Teaching Recipient: Patient Teaching Methods: Discussion Response to Teaching: Verbalize Understanding OT Custodial Goals Electric Refrigerator Servicer Goals Time Frame: Nov 20, 2021 Eating (QC): 5 Oral Hygiene (QC): 5 Toileting Hygiene (QC): 4 Upper Body Dressing (QC): 4 Lower Body Dressing (QC): 4 On/Off Footwear (QC): 3 1=Demonstrate adherence to instructed precautions during ADL tasks. 2=Patient will verbalize/demonstrate understanding of assistive devices/modifications for ADL. 3=Patient will improve strength/tolerance for activity to enable patient to perform ADL's. OT Education/Plan Problem List/Assessment Assessment: Decreased Activ Tolerance, Decreased UE Strength, Impaired Funct Balance, Impaired I ADL's, Impaired Self-Care Skills, Restricted Funct UE ROM Discharge Recommendations Plan/Recommendations: Continue POC Treatment Plan/Plan of Care Patient would benefit from OT for education, treatment and training to promote independence in ADL's, mobility, safety and/or upper extremity function for ADL's. Plan of Care: ADL Retraining, Functional Mobility, Group Exercise/Act as Ind, UE Funct Exercise/Act, UE Neuromus Re-Ed/Coord Treatment Duration: Nov 20, 2021 Frequency: 3 times per week (3-5x/week) Estimated Hrs Per Day: .25 hour per day Agreement: Yes Rehab Potential: Fair Time/GCodes Start Time: 10:26 Stop Time: 10:36 Total Time Billed (hr/min): 10 Billed Treatment Time 1, ADL BURKE ROCHA OT Nov 07, 2021 11:58
--- NOTE | 2021-11-07 12:57 | Physical Therapy Daily Note ---
PT Daily Note-Current Subjective Patient lying supine in bed upon PT arrival, agreeable to treatment. Transfers SCALE: Activities may be completed with or without assistive devices. 0-Xgithebzwy-ebxbqus completes the activity by him/herself with no assistance from a helper. 5-Set-up or Clean-up Assistance-helper sets up or cleans up; patient completes activity. [place] assists only prior to or following the activity. 4-Supervision or Touching Assistance-helper provides verbal cues and/or touching/steadying and/or contact guard assistance as patient completes act ivity. Assistance may be provided throughout the activity or intermittently. 3-Partial/Moderate Assistance-helper does LESS THAN HALF the effort. [place] lifts, holds or supports trunk or limbs, but provides less than half the effort. 2-Substantial/Maximal Assistance-helper does MORE THAN HALF the effort. [place] lifts or holds trunk or limbs and provides more than half the effort. 5-Blfpxqxcy-dinffg does ALL the effort. Patient does none of the effort to complete the activity. Or, the assistance of 2 or more helpers is required for the patient to complete the activity. If activity was not attempted, code reason: 7-Patient Refused. 9-Not Applicable-not attempted and the patient did not perform the activity before the current illness, exacerbation or injury. 10-Not Attempted due to Environmental Limitations-(lack of equipment, weather restraints, etc.). 88-Not Attempted due to Medical Conditions or Safety Concerns. Roll Left & Right (QC): 4 Sit to Lying (QC): 4 Lying to Sitting/Side of Bed(Q: 4 Sit to Stand (QC): 4 Chair/Wzo-qf-Rduln Xfer(QC): 4 Weight Bearing Right Lower Extremity: Right Weight Bearing/Tolerated Left Lower Extremity: Left Weight Bearing/Tolerated Gait Training Does the Patient Walk?: Yes Distance: 80 Walk 10 feet (QC): 4 Walk 50 ft with 2 Turns(QC): 4 Gait Persons Needed: 1 Exercises Supine Ex: Ankle pumps, Quad Set, Glut sets, Short Arc Quads, Straight leg raise, Hip abd/add Supine Reps: 10 Assessment Current Status: Fair Progress Patient tolerated treatment well. Demonstrates improved overall ability to perform transfers and bed mobility. Patient ambulates 80 feet with SBA, with verbal cues for safety in the room. Upon returning to bed patient performs LE therapeutic exercise as listed. Patient in bed per his request post treatment with all needs met, nursing notified, call light in reach. PT Senior Living Goals Hot Mill Operator Goals PT Hot Mill Operator Goals Time Frame: Nov 13, 2021 Roll Left & Right (QC): 6 Sit to Lying (QC): 6 Lying-Sitting on Side/Bed(QC): 6 Sit to Stand (QC): 6 Chair/Rvc-co-Vrant Xfer(QC): 6 Walk 10 feet (QC): 6 Walk 50ft with 2 Turns (QC): 6 PT Plan Treatment/Plan Treatment Plan: Continue Plan of Care Treatment Plan: Bed Mobility, Education, Functional Activity Jose Carlos, Functional Strength, Gait, Safety, Therapeutic Exercise, Transfers Treatment Duration: Nov 13, 2021 Frequency: 6 times per week Estimated Hrs Per Day: .25 hour per day Patient and/or Family Agrees t: Yes Safety Risks/Education Patient Education: Gait Training Teaching Recipient: Patient Teaching Methods: Demonstration, Discussion Response to Teaching: Verbalize Understanding, Return Demonstration Time/GCodes Time In: 1010 Time Out: 1027 Total Billed Treatment Time: 17 Total Billed Treatment Visit, MARGARITA Mccray PT Nov 07, 2021 12:57
--- NOTE | 2021-11-07 14:46 | Progress Note ---
EDGARDO SHARMA 11/07/21 1446: Subjective Date Seen by a Provider: Nov 07, 2021 Time Seen by a Provider: 11:00 Subjective/Events-last exam Subjective: Today is Mo's second day in the hospital. He is on room air. His hematuria has resolved. He has been working with PT and OT and is able to walk to the bathroom by himself but needs help when sitting or standing. Patient feels that he is back to his baseline as far as energy level and physical ability. Hospital course: Mo is a 81yo M with a PMH includes stroke, TIA, high cholesterol, GERD, arthrits, and prostatic cancer. He presented to the [facility] on 11/05/21 after passing out in his home. He was getting ready to take a shower and sat down on his toilet before getting in when he passed out. He denied falling or hitting his head on anything when it happened. He says his was right there when it happened and is the one who called EMS. For the past month he has been having episodes of syncope and low blood pressure which is being investigated by Dr. Ragland the gold assayer. His records his BP and he says that it has been as low as 90/59 before. Systolic BP was in the 70s when EMS picked him up. He came to the ER on Friday for a different syncope episode and was prescribed midodrine which he says he has taken a few times since leaving the ER. He tested positive for COVID in the ER and he is unvaccinated. He was put on 2L of oxygen while in the ER. D-dimer and procalcitonin were elevated. ABG 7.46/32/86. Chest X-ray showed a density of the right lung base and CT had signs of bronchitis. Patient admitted for bronchitis due to COVID and recurrent syncope. On his second day in the hospital the patient was on 1L of oxygen via nasal cannula and he developed hematuria. The hematuria was likely from his treatment for prostate cancer. On his third day of his hospital stay he was on room air and his hematuria had resolved. At no point during his hospital stay did the patient develop a cough or feel short of breath. Cardiology consulted with him and decided to increase his dose Midodrine 5mg to 3 times a day to prevent the syncope. Patient worked with PT and OT to regain strength and return him to his baseline. Patient is being discharged with the increased dose of Midodrine, dexamethasone 60mg daily, and Albuterol inhaler. Review of Systems General: No Chills, No Fatigue HEENT: No Head Aches, No Visual Changes Pulmonary: No Dyspnea, No Cough Cardiovascular: No: Chest Pain, Palpitations Gastrointestinal: No: Nausea, Vomiting, Diarrhea, Constipation Genitourinary: No Dysuria, No Frequency, No Hematuria Musculoskeletal: shoulder pain (Has chronic left shoulder pain in left) Neurological: No: Weakness, Confusion Objective Exam Last Set of Vital Signs Vital Signs Date Time Temp Pulse Resp B/P (MAP) Pulse Ox O2 Delivery O2 Flow Rate FiO2 11/07/21 11:46 36.1 74 18 133/66 93 Room Air 11/06/21 16:30 2.00 11/05/21 16:22 21 Capillary Refill : Less Than 3 Seconds I&O Intake and Output 11/07/21 00:00 Intake Total 960 ml Balance 960 ml Intake Oral 960 ml # Voids 13 # Bowel Movements 2 General: Alert, Oriented X3, Cooperative, No Acute Distress HEENT: Atraumatic, PERRLA, EOMI Neck: Supple, No JVD Lungs: Clear to Auscultation, Normal Air Movement Heart: Regular Rate, No Murmurs Abdomen: Normal Bowel Sounds, Soft, No Tenderness Extremities: No Clubbing, No Cyanosis, No Edema Skin: No Rashes Neuro: Normal Speech, Normal Tone Psych/Mental Status: Mental Status NL, Mood NL Results Lab Laboratory Tests 11/07/21 06:05: White Blood Count 2.2L, Red Blood Count 3.99L, Hemoglobin 11.4L, Hematocrit 36L, Mean Corpuscular Volume 90, Mean Corpuscular Hemoglobin 29, Mean Corpuscular Hemoglobin Concent 32, Red Cell Distribution Width 14.0, Platelet Count 161, Mean Platelet Volume 9.5, Immature Granulocyte % (Auto) 1, Neutrophils (%) (Auto) 70, Lymphocytes (%) (Auto) 14, Monocytes (%) (Auto) 15H, Eosinophils (%) (Auto) 0, Basophils (%) (Auto) 0, Neutrophils # (Auto) 1.6L, Lymphocytes # (Auto) 0.3L, Monocytes # (Auto) 0.3, Eosinophils # (Auto) 0.0, Basophils # (Auto) 0.0, Immature Granulocyte # (Auto) 0.0, Sodium Level 143, Potassium Level 3.6, Chloride Level 112H, Carbon Dioxide Level 20L, Anion Gap 11, Blood Urea Nitrogen 14, Creatinine 0.76, Estimat Glomerular Filtration Rate 90, BUN/Creatinine Ratio 18, Glucose Level 136H, Calcium Level 8.4L, Corrected Calcium 9.0, Total Bilirubin 0.3, Aspartate Amino Transf (AST/SGOT) 33, Alanine Aminotransferase (ALT/SGPT) 31, Alkaline Phosphatase 59, Total Protein 6.2L, Albumin 3.2 Assessment/Plan Assessment/Plan Assess & Plan/Chief Complaint Assessment: Recurrent syncope Bronchitis COVID-19 Hypoxia Dehydration Prostate cancer Hematuria Hypokalemia Debility HTN GERD High cholesterol DVT prophylaxis Ulcer prophylaxis Stroke history Plan: Recurrent syncope - midodrine dosage was increased to 3x day - patient will follow up with Dr. Ragland Bronchitis - viral bronchitis most likely from COVID - Continue to give albuterol and dexamethasone at home ID-19 - due to being unvaccinated, patient should quarantine for a full 10 days Hypoxia - resolved, patient on room air with oxygen saturations in the mid to high 90% range Dehydration - resolved Prostate cancer - Tamsulosin was restarted from home medications Hematuria - patient is currently receiving treatment for prostate cancer with injectable GnRH receptor antagonists which is most likely causing the hematuria - resolved Hypokalemia - resolved - potassium WNL this morning Debility - patient is being referred to work with PT/OT Stroke history - dual antiplatelet therapy of aspirin/clopidogrel was restarted from home medications DVT prophylaxis - Enoxaparin Ulcer prophylaxis -Pantoprazole Diagnosis/Problems Diagnosis/Problems (1) Hypoxia Status: Acute (2) Dehydration Status: Acute (3) Prostate cancer Status: Acute (4) COVID-19 virus infection Status: Acute (5) Recurrent syncope Status: Acute (6) Hypokalemia (7) Hematuria (8) Debility Clinical Quality Measures Admission Status Admission Dx Assessment: Recurrent syncope Bronchitis COVID-19 Hypoxia Dehydration Prostate cancer HTN GERD High cholesterol DVT prophylaxis Ulcer prophylaxis Plan: Recurrent syncope - likely constitution party caused by dehydration - patient should have IV and oral fluids Bronchitis - viral bronchitis most likely - Continue to give albuterol and dexamethasone COVID-19 - monitor oxygen levels - repeat ABG should be done tomorrow Hypoxia - continue giving oxygen via nasal canula as needed Dehydration - Oral and IV fluids will be given Prostate cancer - restart home medication Tamsulosin DVT prophylaxis - Enoxaparin Ulcer prophylaxis -Pantoprazole ANABEL CABELLO DO 11/08/21 0529: Supervisory-Addendum Brief Verification & Attestation Participated in pt care: history, MDM, physical Personally performed: exam, history, MDM, supervision of care Care discussed with: Medical Student Procedures: n/a Results interpretation: Verified all documentation Verification and Attestation of Medical Student E/M Service A medical student performed and documented this service in my presence. I review ed and verified all information documented by the medical student and made modifications to such information, when appropriate. I personally performed the physical exam and medical decision making. Anabel Cabello, Nov 08, 2021,05:29 EDGARDO SHARMA Nov 07, 2021 14:46 ANABEL CABELLO DO Nov 08, 2021 05:29
== END 2021-11-07 13:50 | disposition home or self-care (01) | DRG 640 ==
LOC: EDUNIT# 10:36 → ER 10:37 → UNDOADMIN 15:44 → CSD 15:44 → 4TH 11-06 15:56
PROVIDERS: ADMIT Internal Medicine; ATTEND Internal Medicine
PROC: 8E0ZXY6 Isolation (ICD-10-PCS; principal; 2021-11-06)
DX: E86.0 Dehydration (principal); U07.1 COVID-19; I69.354 Hemiplegia and hemiparesis following cerebral infarction affecting left non-dominant side; R09.02 Hypoxemia; J20.8 Acute bronchitis due to other specified organisms; C61 Malignant neoplasm of prostate; I10 Essential (primary) hypertension; I95.1 Orthostatic hypotension; K21.9 Gastro-esophageal reflux disease without esophagitis; E78.00 Pure hypercholesterolemia, unspecified; M19.90 Unspecified osteoarthritis, unspecified site; Z87.891 Personal history of nicotine dependence; Z95.5 Presence of coronary angioplasty implant and graft; I25.10 Atherosclerotic heart disease of native coronary artery without angina pectoris; N40.0 Benign prostatic hyperplasia without lower urinary tract symptoms; G89.29 Other chronic pain; M54.9 Dorsalgia, unspecified; R31.9 Hematuria, unspecified; E87.6 Hypokalemia; R53.81 Other malaise; E78.2 Mixed hyperlipidemia
CPT/HCPCS: 36415; 51701; 71045; 71275; 74177; 80053; 81000; 82533; 82550; 82553; 82805; 83735; 83874; 83880; 84145; 84443; 84484; 85025; 85379; 85610; 85652; 85730; 86141; 87636; 93005; 93041; 94640; 94664; 94760

== ENCOUNTER 2021-11-19 15:45 | Inpatient (IN) | payer MEDICARE ==
[~2021-11-19] VITALS: Ht 170.2 cm; Wt 68.0 kg
[~2021-11-19 15:45] MED LIST changes: +CLOP75TA28 PO; +DEXA6TAB6 PO; +DICL100G27 TP; +FAMO20TA3 PO; +LACT1CAP72 PO; +MIDO10TA PO; +RT-ALBUINH IH
[2021-11-19] MEDS ORDERED: ALPRAZolam 0.25 MG (XANAX) TAB PO PRN (16:00)
[2021-11-19] MEDS ORDERED: ONDANSETRON 4 MG (ZOFRAN) ORAL DISSOLVE TAB PO PRN (16:00)
[2021-11-19] MEDS ORDERED: LACTULOSE SYRUP 10GM/15ML (ENULOSE) 30ML UDC PO PRN (16:00)
[2021-11-19] MEDS ORDERED: FLEET ENEMA ADULT 1 EA BTL PR PRN (16:00)
[2021-11-19] MEDS ORDERED: diphenhydrAMINE 25 MG TAB (BENADRYL) PO PRN (16:00)
[2021-11-19] MEDS ORDERED: BISACODYL 10 MG SUPP (DULCOLAX) PR PRN (16:00)
[2021-11-19] MEDS ORDERED: DOCUSATE SODIUM 100 MG (COLACE) CAP PO PRN (16:00)
[2021-11-19] MEDS ORDERED: guaiFENesin/CODEINE (ROBITUSSIN AC) 10ML UDC PO PRN (16:00)
[2021-11-19] MEDS ORDERED: LOPERAMIDE 2 MG (IMODIUM) TABLET PO PRN (16:00)
[2021-11-19 16:18] VITALS: BP 124/58
[2021-11-19] MEDS ORDERED: NS IV 1000 ML 1,000 ML ONE (16:50)
[2021-11-19] MEDS: NS IV 1000 ML 1,000 ML IV SCH (17:23)
[2021-11-19 17:27] LABS: ALBUMIN 2.7 GM/DL (3.2-4.5)
[2021-11-19 17:28] LABS: CHLORIDE 105 MMOL/L (98-107); POTASSIUM 3.8 MMOL/L (3.6-5.0); SODIUM 137 MMOL/L (135-145)
[2021-11-19 17:29] LABS: CALCIUM 8.4 MG/DL (8.5-10.1)
[2021-11-19 17:30] LABS: GLUCOSE 114 MG/DL (70-105); TOTAL PROTEIN 6.2 GM/DL (6.4-8.2)
--- NOTE | 2021-11-19 17:30 | Diagnostic Imaging Report ---
CHEST 1 VIEW, AP/PA ONLY INDICATION: Dizziness. COMPARISON: 11/05/2021. FINDINGS: New right mid lung and bibasilar heterogeneous consolidations. No pleural effusion or pneumothorax. Normal cardiac silhouette. IMPRESSION: 1. New bilateral pulmonary opacities are most likely due to multifocal pneumonia versus aspiration. Dictated by: Dictated on workstation # [id number]
[2021-11-19 17:31] LABS: CARBON DIOXIDE 23 MMOL/L (21-32)
[2021-11-19 17:32] LABS: BILIRUBIN,TOTAL 0.5 MG/DL (0.1-1.0)
[2021-11-19 17:34] LABS: ALKALINE PHOSPHATASE 82 U/L (40-136); CREATININE SERUM 0.81 MG/DL (0.60-1.30); GFR ESTIMATED 88
[2021-11-19 17:35] LABS: BUN/CREATININE RATIO 20
[2021-11-19 17:37] LABS: ALANINE AMINOTRANSFERASE 30 U/L (0-55)
[2021-11-19 18:01] LABS: BASOPHILS % (AUTO) 0 % (0-10); EOSINOPHILS # (AUTO) 0.1 10^3/uL (0.0-0.3); EOSINOPHILS % (AUTO) 2 % (0-10); HEMATOCRIT 34 % (40-54); HEMOGLOBIN 10.7 g/dL (13.3-17.7); LYMPHOCYTES % (AUTO) 16 % (12-44); MEAN CORPUSCULAR HEMOGLOBIN 28 pg (25-34); MEAN CORPUSCULAR HGB CONC 32 g/dL (32-36); MEAN CORPUSCULAR VOLUME 89 fL (80-99); MEAN PLATELET VOLUME 8.9 fL (9.0-12.2); MONOCYTES # (AUTO) 0.6 10^3/uL (0.0-1.0); MONOCYTES % (AUTO) 9 % (0-12); NEUTROPHILS # (AUTO) 4.3 10^3/uL (1.8-7.8); NEUTROPHILS % (AUTO) 72 % (42-75); PLATELET COUNT 361 10^3/uL (130-400); WHITE BLOOD COUNT 5.9 10^3/uL (4.3-11.0)
[2021-11-19 18:25] LABS: BILIRUBIN,URINE NEGATIVE (NEGATIVE); CLARITY,URINE CLEAR; COLOR,URINE YELLOW; GLUCOSE, URINE (UA) NEGATIVE (NEGATIVE); KETONES,URINE TRACE (NEGATIVE); LEUKOCYTE ESTERASE ,URINE TRACE (NEGATIVE); NITRITE,URINE NEGATIVE (NEGATIVE); PROTEIN,URINE TRACE (NEGATIVE)
[2021-11-19 18:47] LABS: BACTERIA,URINE LARGE /HPF; WBC,URINE 0-2 /HPF
[2021-11-19 20:00] VITALS: BP 122/63
[2021-11-19] MEDS: polyethylene glycoL POWDER 17 GM (MIRALAX) PACK PO SCH (21:28)
[2021-11-19] MEDS: DOCUSATE SODIUM 100 MG (COLACE) CAP PO SCH (21:28)
[2021-11-19] MEDS: SENNA W/DOCUSATE (SENOKOT S) TABLET PO SCH (21:28)
[2021-11-19] MEDS ORDERED: ENOXAPARIN 40 MG/0.4 ML (LOVENOX) SYR ONE (21:34)
[2021-11-19] MEDS: ENOXAPARIN 40 MG/0.4 ML (LOVENOX) SYR SC SCH (22:00)
[2021-11-19] MEDS: MIDODRINE 10 MG (PROAMATINE) TAB PO SCH (22:01)
[2021-11-19] MEDS ORDERED: DICLOFENAC 1% GEL 100 GM (VOLTAREN) TUBE TOP PRN (23:15)
[2021-11-20] MEDS: NS IV 1000 ML 1,000 ML IV SCH ×2 (02:55→12:13)
[2021-11-20 05:04] LABS: BASOPHILS % (AUTO) 0 % (0-10); EOSINOPHILS # (AUTO) 0.1 10^3/uL (0.0-0.3); EOSINOPHILS % (AUTO) 2 % (0-10); HEMATOCRIT 34 % (40-54); LYMPHOCYTES # (AUTO) 1.1 10^3/uL (1.0-4.0); LYMPHOCYTES % (AUTO) 21 % (12-44); MEAN CORPUSCULAR HEMOGLOBIN 29 pg (25-34); MEAN CORPUSCULAR HGB CONC 33 g/dL (32-36); MEAN CORPUSCULAR VOLUME 88 fL (80-99); MEAN PLATELET VOLUME 8.5 fL (9.0-12.2); MONOCYTES # (AUTO) 0.6 10^3/uL (0.0-1.0); MONOCYTES % (AUTO) 11 % (0-12); NEUTROPHILS # (AUTO) 3.4 10^3/uL (1.8-7.8); NEUTROPHILS % (AUTO) 65 % (42-75); PLATELET COUNT 331 10^3/uL (130-400); WHITE BLOOD COUNT 5.3 10^3/uL (4.3-11.0)
--- NOTE | 2021-11-20 05:22 | PM&R Post Admission Assessment ---
PM&R HP Date of Visit: Nov 20, 2021 Time of Visit: 09:30 History of Present Illness Chief complaint: Debility History of present illness: This is an 81-year-old white male clinic patient of mine since he was discharged on 05/28/2021 from inpatient rehab after sustaining a stroke with left-sided hemiparesis who presented to my office with severe debility and worsening weakness following Covid pneumonia on 11/05/2021. He did not require oxygen at discharge but continued to have issues with dehydration and worsening weakness on the left side where his stroke re sidual is. He has had multiple falls at home. Urinary frequency has been an issue requiring multiple bathroom trips at night causing disruption in his sleep cycle. To note he was diagnosed with prostate cancer managed by Dr. Valencia further complicating his full recovery following the stroke. Since his physical therapy ran out 2 months ago he has just been at home sitting around and not doing much activity. His helps him a great deal but she does have dementia. The goal is to provide IV fluids and supportive care and try to initiate aggressive rehab in order to restart outpatient physical therapy and remain independent. Patient had an uneventful night although he is trying to urinate multiple times and only 50cc at a time. RN will bladder scan. Spoke to Dr Valencia and he will see him. Coag negative staph UCx so started on Vanc. Labs reviewed. Poor nutrition will require Ensure. Past Pmoubjk-Thctib-Bcmxey Hx Past Med/Social Hx: Reviewed Nursing Past Med/Soc Hx, Reviewed and Corrections made Patient Social History Marrital Status: Employed/Student: retired Smoking Status: Former Smoker Recent Foreign Travel: No Contact w/other who traveled: No Past Medical History Surgeries: Coronary Stent Cardiac: Coronary Artery Disease, High Cholesterol, Hypertension Neurological: Stroke Genitourinary: Benign Prostatic Hyperpl Prostate cancer Gastrointestinal: Gastroesophageal Reflux Musculoskeletal: Arthritis, Chronic Back Pain Cancer: Prostate Did You Recieve Any Treatments: Yes History of Blood Disorders: No PM&R Allergy/Meds/Data Review Allergies Coded Allergies: aloe vera (Verified Allergy, Unknown, 05/01/21) cephalexin (Verified Allergy, Unknown, 05/01/21) influenza virus vaccine ts [id number] (36 mos,up) (Verified Allergy, Unknown, 05/01/21) Home Medications Scheduled Aspirin (Aspirin EC), 81 MG PO DAILY, (Reported) Atorvastatin Calcium (Atorvastatin Calcium), 80 MG PO HS, (Reported) Clopidogrel Bisulfate (Clopidogrel), 75 MG PO DAILY, (Reported) Famotidine (Acid Search Engine Optimization Consultant (FAMOTIDINE)), 20 MG PO DAILY, (Reported) Midodrine HCl (Midodrine HCl), 5 MG PO TID Omega3,5,6,7,9 No.1/[place] Oil (Complete [place] Softgel), 1 EACH PO DAILY, (Reported) Pantoprazole Sodium (Pantoprazole Sodium), 40 MG PO BIDAC, (Reported) Tamsulosin HCl (Flomax), 0.4 MG PO 1800, (Reported) Scheduled PRN Acetaminophen (Acetaminophen), 650 MG PO Q4H PRN for PAIN-MILD (1-4) Diclofenac Sodium (Diclofenac Sodium), 1 APPLIC TP QID PRN for PAIN- BREAKTHROUGH, (Reported) Discontinued Medications Albuterol Sulfate (Proair Hfa), 2 PUFF IH Q4H Dexamethasone (Decadron), 6 MG PO DAILY Lactobacillus Combo No.10 (Probiotic), 1 EACH PO DAILY, (Reported) Current Medications Current Medications Reviewed Laboratory Data Laboratory Tests 11/19/21 17:00: White Blood Count 5.9, Red Blood Count 3.79L, Hemoglobin 10.7L, Hematocrit 34L, Mean Corpuscular Volume 89, Mean Corpuscular Hemoglobin 28, Mean Corpuscular Hemoglobin Concent 32, Red Cell Distribution Width 14.1, Platelet Count 361, Mean Platelet Volume 8.9L, Immature Granulocyte % (Auto) 1, Neutrophils (%) (Auto) 72, Lymphocytes (%) (Auto) 16, Monocytes (%) (Auto) 9, Eosinophils (%) (Auto) 2, Basophils (%) (Auto) 0, Neutrophils # (Auto) 4.3, Lymphocytes # (Auto) 1.0, Monocytes # (Auto) 0.6, Eosinophils # (Auto) 0.1, Basophils # (Auto) 0.0, Immature Granulocyte # (Auto) 0.0, Sodium Level 137, Potassium Level 3.8, Chloride Level 105, Carbon Dioxide Level 23, Anion Gap 9, Blood Urea Nitrogen 16, Creatinine 0.81, Estimat Glomerular Filtration Rate 88, BUN/Creatinine Ratio 20, Glucose Level 114H, Lactic Acid Level 1.13, Calcium Level 8.4L, Corrected Calcium 9.4, Total Bilirubin 0.5, Aspartate Amino Transf (AST/SGOT) 32, Alanine Aminotransferase (ALT/SGPT) 30, Alkaline Phosphatase 82, Troponin I < 0.028, B- Type Natriuretic Peptide 21.7, Total Protein 6.2L, Albumin 2.7L, Procalcitonin 0.08 11/19/21 18:10: Urine Color YELLOW, Urine Clarity CLEAR, Urine pH 7.0, Urine Specific [place] 1.020, Urine Protein TRACEH, Urine Glucose (UA) NEGATIVE, Urine Ketones TRACEH, Urine Nitrite NEGATIVE, Urine Bilirubin NEGATIVE, Urine Urobilinogen 4.0, Urine Leukocyte Esterase TRACEH, Urine RBC (Auto) NEGATIVE, Urine RBC NONE, Urine WBC 0-2, Urine Squamous Epithelial Cells NONE, Urine Renal Epithelial Cells NONE, Urine Crystals NONE, Urine Bacteria LARGEH, Urine Casts NONE, Urine Mucus NEGATIVE, Urine Culture Indicated YES 11/20/21 04:57: Review of Systems Constitutional: see HPI, dizziness, malaise, weakness EENTM: no symptoms reported Respiratory: dyspnea on exertion Cardiovascular: no symptoms reported Gastrointestinal: no symptoms reported Genitourinary: decreased output, frequency Musculoskeletal: back pain, joint pain Skin: no symptoms reported Psychiatric/Neurological: Depressed All Other Systems Reviewed Negative Unless Noted: Yes Physical Exam Physical Exam Vital Signs Vital Signs - First Documented 11/19/21 16:18 Temp 36.6 Pulse 82 Resp 22 B/P (MAP) 124/58 (80) Pulse Ox 94 O2 Delivery Room Air Capillary Refill : Height, Weight, BMI Height: '" Weight: lbs. oz. kg; 24.33 BMI Method: General Appearance: WD/WN, Anxious, Chronically ill, Mild Distress, Thin, Other (Frail) Eyes: Bilateral Eye Normal Inspection, Bilateral Eye PERRL HEENT: PERRL/EOMI, Normal ENT Inspection, Pharynx Normal Neck: Full Range of Motion, Normal Inspection, Non Tender, Supple, Carotid Bruit Respiratory: Chest Non Tender, Lungs Clear, No Accessory Muscle Use, No Respiratory Distress, Decreased Breath Sounds Cardiovascular: Regular Rate, Rhythm, No Edema, No Gallop, No JVD, No Murmur, Normal Peripheral Pulses Gastrointestinal: Normal Bowel Sounds, No Organomegaly, No Pulsatile Mass, Non Tender, Soft Back: Normal Inspection, No CVA Tenderness, No Vertebral Tenderness Extremity: Normal Capillary Refill, Normal Inspection, Normal Range of Motion (Left-sided hemiparesis), Non Tender, No Calf Tenderness, No Pedal Edema Neurologic/Psychiatric: Alert, Oriented x3, No Motor/Sensory Deficits, 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 Norm as Tested, Abnormal Gait, Depressed Affect, Motor Weakness (Left weakness greater than right but generalized throughout) Skin: Normal Color, Warm/Dry Lymphatic: No Adenopathy PM&R Medical Assessment & Plan REHAB/MEDICAL ASSESSMENT AND PLAN: REHAB IMPAIRMENT GROUP: Debility ETIOLOGIC DIAGNOSIS: Debility The comorbidities that impact the patients function and/or functional outcome by: Advanced age, severe left-sided weakness, recent Covid, weight loss REHAB PLAN: The patient is being admitted to our comprehensive inpatient rehabilitation facility and can tolerate the intensity of service consisting of at least: 180 minutes of therapy a day, 5 out of 7 days a week Rehab treatment will consist of: PT and OT will focus on increasing independence with ADLs and use of assistive devices and fall risk prevention and regaining function maintained last time he was seen in inpatient rehab following his CVA May 2021 The patient/family has a good understanding of our discharge process and will benefit from an interdisciplinary inpatient rehabilitation program. The patient has potential to make improvement and is in need of at least two of the following multidisciplinary therapies including but not limited to physical, occupational, speech, and prosthetics and orthotics. Additionally the patient will need services from respiratory, nutritional services, wound care, psychology, etc. (Customize this to each patient). Given the patients complex condition and risk of further medical complications, rehabilitation services cannot be safely or effectively provided at a lower level of care such as a detention facility. BARRIERS TO DISCHARGE: Severe weakness ESTIMATED LOS: 7 days DISPOSITION: Home with RELEVANT CHANGES SINCE PREADMISSION SCREENING: I have compared the patients medical and functional status at the time of the preadmission screening and there are: No changes PROGNOSIS: Fair REHABILITATION GOALS: 1. PT and OT will focus on increasing independence with ADLs and use of assistive devices and fall risk prevention and regaining function maintained last time he was seen in inpatient rehab following his CVA May 2021 All the above goals were reviewed with the patient and he/she is in agreement. By signing this document, I acknowledge that I have personally performed a full physical examination on this patient within 24 hours of admission to this inpatient rehabilitation facility and have determined the patient to be able to tolerate the above course of treatment at an intensive level for a reasonable period of time. I will be completing a detailed individualized Plan of Care for this patient by day #4 of the patients stay based upon the Preadmission Screen, the Post-Admission Evaluation, and the therapy evaluations. Admission Dx/Comorbidities: (1) Debility ICD Codes: R53.81 - Other malaise (2) Recurrent syncope Status: Acute ICD Codes: R55 - Syncope and collapse (3) Hypotension Status: Acute ICD Codes: I95.9 - Hypotension, unspecified (4) Prostate cancer Status: Acute ICD Codes: C61 - Malignant neoplasm of prostate (5) Dehydration Status: Acute ICD Codes: E86.0 - Dehydration (6) History of cerebrovascular accident ICD Codes: Z86.73 - Personal history of transient ischemic attack (TIA), and cerebral infarction without residual deficits (7) Primary hypertension ICD Codes: I10 - Essential (primary) hypertension (8) Mixed hyperlipidemia ICD Codes: E78.2 - Mixed hyperlipidemia (9) Orthostatic hypotension Status: Acute ICD Codes: I95.1 - Orthostatic hypotension (10) Cerebral infarction due to unspecified occlusion or stenosis of right middle cerebral artery ICD Codes: I63.511 - Cerebral infarction due to unspecified occlusion or stenosis 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
[2021-11-20 05:53] LABS: ALBUMIN 2.6 GM/DL (3.2-4.5); POTASSIUM 3.7 MMOL/L (3.6-5.0)
[2021-11-20 05:54] LABS: CALCIUM 8.2 MG/DL (8.5-10.1)
[2021-11-20 05:58] LABS: BILIRUBIN,TOTAL 0.5 MG/DL (0.1-1.0)
[2021-11-20 05:59] LABS: CREATININE SERUM 0.7 MG/DL (0.60-1.30)
[2021-11-20] MEDS: PANTOPRAZOLE 40 MG (PROTONIX) TAB PO SCH ×2 (06:49→16:25)
[2021-11-20 07:34] VITALS: BP 122/68
[2021-11-20] MEDS: CLOPIDOGREL 75 MG (PLAVIX) TABLET PO SCH (07:34)
[2021-11-20] MEDS: MIDODRINE 10 MG (PROAMATINE) TAB PO SCH ×3 (07:36→20:47)
[2021-11-20] MEDS: FAMOTIDINE 20 MG (PEPCID) TABLET PO SCH (07:36)
[2021-11-20] MEDS: ASPIRIN E.C. 81 MG (ECOTRIN) TAB PO SCH (07:37)
[2021-11-20] MEDS: DOCUSATE SODIUM 100 MG (COLACE) CAP PO SCH ×2 (07:37→20:46)
[2021-11-20] MEDS: SENNA W/DOCUSATE (SENOKOT S) TABLET PO SCH ×2 (07:37→20:57)
--- NOTE | 2021-11-20 08:37 | Occupational Therapy Eval ---
OT Evaluation-General/PLF Medical Diagnosis Admission Date Nov 19, 2021 at 16:12 Medical Diagnosis: debility Onset Date: Nov 19, 2021 Therapy Diagnosis Therapy Diagnosis: decreased ADL status, weakness, impaired functional use LUE Precautions Precautions/Isolations: Fall Prevention, Standard Precautions Referral Physician: Radha Medical History Pertinent Medical History: Arthritis, CVA, GERD Social History Home: Single Level Current Living Status: Spouse Entry Into Home: Stairs With Railing (bilaterally) Steps Into Home: 3 ADL-Prior Level of Function SCALE: Activities may be completed with or without assistive devices. 7-Ghqzwftnel-rdzfuhv completes the activity by him/herself with no assistance from a helper. 5-Set-up or Clean-up Assistance-helper sets up or cleans up; patient completes activity. [place] assists only prior to or following the activity. 4-Supervision or Touching Assistance-helper provides verbal cues and/or touching/steadying and/or contact guard assistance as patient completes activity. Assistance may be provided throughout the activity or intermittently. 3-Partial/Moderate Assistance-helper does LESS THAN HALF the effort. [place] lifts, holds or supports trunk or limbs, but provides less than half the effort. 2-Substantial/Maximal Assistance-helper does MORE THAN HALF the effort. [place] lifts or holds trunk or limbs and provides more than half the effort. 2-Eijykdfld-nbhhea does ALL the effort. Patient does none of the effort to complete the activity. Or, the assistance of 2 or more helpers is required for the patient to complete the activity. If activity was not attempted, code reason: 7-Patient Refused. 9-Not Applicable-not attempted and the patient did not perform the activity before the current illness, exacerbation or injury. 10-Not Attempted due to Environmental Limitations-(lack of equipment, weather restraints, etc.). 88-Not Attempted due to Medical Conditions or Safety Concerns. ADL PLOF Comments Pt reports using SPC for functional mobility, his is typically close by providing supervision. He has assistance with showering, assistance to wash/dry under R arm and with bilateral feet/lower legs. LE dressing, requires assistance threading BLEs, able to complete pant hike. Toileting requires assistance with hygiene for thoroughness, able to manage pants. Set up assistance with feeding. IND with oral care. Self Care: Needed Some Help Functional Cognition: Needed Some Help DME/Equipment: Bath Chair, Grab Bars, Shower DME/Equipment Comments SPC OT Current Status Subjective Pt in bed, agreeable to OT tx. Pt reports he gets fatigued easily. Throughout session, pt indicates he is unable to do tasks prior to trying, requiring encouragement to attempt. Mental Status/Objective Patient Orientation: Person, Place, Time, Situation Attachments: IV Current Glasses/Contacts: Yes Hearing Aids: No Dentures/Partials: Yes Hand Dominance: Right Upper Extremity ROM Decreased LUE. AROM shoulder flexion to approx 40 degrees, PROM to approx 80 degrees, then reports increased pain. WFL elbow AROM, cogwheel spacticity noted with PROM. WFL at wrist and hand, increased pain with full flexion/extension of fingers. RUE WFL. Upper Extremity Coordination decreased LUE Upper Extremity Sensation WFL light touch bilaterally. Upper Extremity Strength decreased LUE, grossly 2/5. RUE grossly 3+/5 ADL-Treatment ADL-Current Pt completed sponge bath and dressing at EOB. He doffed gripper socks with encouragement, then stood to doff underwear. Pt completed lower body sponge bath, encouragement to reach for lower legs/feet. Pt donned lower body clothing. Pt able to thread BLEs into underwear after encouragement to attempt himself, assistance with L side pant hike. Pt then donned pants, assistance threading LLE and assistance with L pant hike. Pt able to thread RLE into pants after encouragement. Pt transferred supine, SBA, for rest break. Pt returned EOB, SBA, completing UE dressing and sponge bath. Pt required assistance washing under R arm and with washing R upper arm. Pt then donned shirt, pt initially threaded LUE into R arm hole, requiring assistance to correctly orient shirt. Pt then threaded LUE into head hole, requiring assistance to put LUE into L arm hole. Pt then treaded R arm into head hole, requiring assistance to locate correct hold. Pt managed shirt overhead, L arm slipping out of shirt, and pt attempting to thread head through L arm hole, requiring assistance. Assistance provided to manage shirt down trunk. Pt transfers supine for rest break. Pt requests to use the bathroom, transfers to EOB, then sit to stand with CGA. CGA-Min A into bathroom using SPC as OT managed IV pole. Pt completed toileting, then transferred to recliner. Eating (QC): 5 (set up per pt report.) Oral Hygiene (QC): 3 (Min A. Pt able to place/remove dentures. Assist with brushing/rinsing dentures.) Shower/Bathe Self (QC): 3 (Pt required assistance washing bilateral feet, and assistance with washing R upper and under arm.) Upper Body Dressing (QC): 2 (Pt required assistance threading BUEs, and overhead. ) Lower Body Dressing (QC): 3 (Min A with threading LLE and L side pant hike. Pt able to thread RLE and complete R pant hike with some encouragement.) On/Off Footwear (QC): 3 (Mod A, pt able to doff with encouragment, assistance donning bilateral socks.) Toileting Hygiene (QC): 2 (Pt required assistance with clothing management up/down on L side, and assistance with hygiene for thoroughness.) Other Treatments Pt in bed, agreeable to OT tx. In order to increase functional use of LUE, pt completed functional reaching task, removing cones from stack on R and stacking them on L utilizing LUE. Pt required cues to open L hand in order to release cones. Pt completed x6 cones total. Post tx, pt in recliner, call light in reach and all needs met. CGA sit to stand transfers, min-CGA functional mobility using FWW and OT managing IV pole. Education OT Patient Education: Correct positioning, Energy conservation, Exercise program, Modified ADL techniques, Progress toward Goal/Update tx plan, Purpose of tx/functional activities, Rehab process, Safety issues Teaching Recipient: Patient Teaching Methods: Discussion Response to Teaching: Verbalize Understanding OT Short Term Goals Short Term Goals Time Frame: Nov 28, 2021 Toileting hygiene: 3 Upper body dressin OT Director Mobile Goals Director Mobile Goals Time Frame: Dec 14, 2021 Eating (QC): 5 Oral Hygiene (QC): 5 Toileting Hygiene (QC): 4 Shower/Bathe Self (QC): 4 Upper Body Dressing (QC): 4 Lower Body Dressing (QC): 4 On/Off Footwear (QC): 4 Additional Goals: 1-Demonstrate ADL Tasks, 2-Verbalize Understanding, 3- ImproveStrength/Jose Carlos 1=Demonstrate adherence to instructed precautions during ADL tasks. 2=Patient will verbalize/demonstrate understanding of assistive devices/modifications for ADL. 3=Patient will improve strength/tolerance for activity to enable patient to perform ADL's. OT Education/Plan Problem List/Assessment Assessment: Decreased Activ Tolerance, Decreased UE Strength, Impaired Coordination, Impaired Funct Balance, Impaired I ADL's, Impaired Self-Care Skills, Restricted Funct UE ROM Discharge Recommendations Plan/Recommendations: Continue POC Treatment Plan/Plan of Care Patient would benefit from OT for education, treatment and training to promote independence in ADL's, mobility, safety and/or upper extremity function for ADL's. Plan of Care: ADL Retraining, Functional Mobility, UE Funct Exercise/Act, UE Neuromus Re-Ed/Coord Treatment Duration: Dec 14, 2021 Frequency: At least 5 of 7 days/Wk (IRF) Estimated Hrs Per Day: 1.5 hours per day Agreement: Yes Rehab Potential: Fair Time/GCodes Start Time: 08:00 Stop Time: 09:30 Total Time Billed (hr/min): 90 Billed Treatment Time 1, EVM (15), ADL 4 (60'), FA (15') BURKE ROCHA OT Nov 20, 2021 08:37
[2021-11-20] MEDS ORDERED: VANCOMYCIN INJECTION 1,000 MG in NS (IVPB) 250 ML IV SCH (09:15)
[2021-11-20] MEDS ORDERED: VANCOMYCIN 1250 MG/NS 250 ML IVPB IV NR ×2 (10:00)
[2021-11-20] MEDS: polyethylene glycoL POWDER 17 GM (MIRALAX) PACK PO SCH ×2 (10:13→20:56)
--- NOTE | 2021-11-20 10:37 | ST Cognitive Linguistic Eval ---
Speech Evaluation-General Medical Diagnosis Debility Onset Date: Nov 19, 2021 Therapy Diagnosis Therapy Diagnosis: Cognitive Linguistic Skills WNL Precautions Precautions: Fall Precautions/Isolations: Fall Prevention, Standard Precautions Referral Referring Physician: Dr. Anabel Garcia Reason for Referral: Evaluation/Treatment Medical History Pertinent Medical History: Arthritis, CVA, GERD Current History The patient is an 81 year-old male with a past medical history significant for stroke, CAD, high cholesterol, HTN, prostate CA, GERD, and arthritis, who presents to the acute rehabilitation floor with severe debility and worsening w eakness. Reviewed History: Yes Social History Current Living Status: Spouse Speech PLF-Current Status Prior Level of Function The patient denied prior challenges with his speech, language, cognition, or swallowing. Subjective The patient was seated upright in his recliner, awake and alert upon entrance to his room by the clinician. The patient greeted the clinician appropriately and was agreeable to participation in the cognitive linguistic evaluation. Language Eval: Auditory Comprehends Simple Yes/No Ques: Functional Indent/Objects Multiple Fisher: Functional Ident/Pics in Multiple Fisher: Functional Follows 1-Step Commands: Functional Follows Complex Directions: Functional Follows General Conversations: Functional Language Eval: Verbal Language Completes Spontaneous Greeting: Functional Produces Auto, Serial Info: Functional Imitates Simple Words/Phrases: Functional Word Finding: Mild Requests Basic Needs: Functional States Basic Personal Info: Functional Expresses Complex Ideas: Functional Language Evaluation: Reading Follows Simple Written Direct: Functional Language Evaluation: Writing Writes to Simple Dictation: Functional Cognitive Patient Orientation The patient was independently oriented to self, location, month, day of week, date, and year. Objective Cognitive Domain Attention: WNL Memory: WNL Problem Solving: Functional Executive Functions: WNL Composite Severity Rating: WNL Clock Drawing Severity Rating: WNL Objective Formal/Standardized Tests [facility] Mental Status ([facility]) Results The patient demonstrated a result of +27/30 on the UMS correlating to normal neurocognitive skills. Oral Motor/Speech Production The patient does not display dysarthria or apraxia of speech. The patient is 100% intelligible in known and unknown contexts. Impression The patient demonstrated neurocognitive skills within normal limits. At this time, the patient does not appear in need of skilled speech pathology services. Speech Patient Assess Expression of Ideas/Wants: Expression (4) Understanding Verbal Content: Understands (4) Brief Interview-Mental Status: Yes Repetition of Three Words: Three (3) Temporal Orientation: Year: Correct (3) Temporal Orientation: Month: Accurate within 5 days(2) Temporal Orientation: Day: Correct (1) Recall : Wear to say "Sock": Yes, no cue required (2) Recall : Color: Yes, no cue required (2) Recall : Bed: Yes, no cue required (2) Memory/Recall Ability: Current season, Staff names and faces, That he or she is in a hsp/hsp unit Speech-Plan Treatment Plan Speech Therapy Treatment Plan: Discontinue ST Treatment Duration: Nov 20, 2021 Frequency: 1 time per week Estimated Hrs Per Day: .25 hour per day Rehab Potential: Fair Pt/Family Agrees to Plan: Yes Safety Risks/Education Teaching Recipient: Patient Teaching Methods: Discussion Response to Teaching: Verbalize Understanding Education Topics Provided: Results of SLUMS, Speech Pathology Plan of Care Time Speech Therapy Time In: 09:30 Speech Therapy Time Out: 09:45 Total Billed Time: 15 Billed Treatment Time 1, [facility] Nov 20, 2021 10:37
--- NOTE | 2021-11-20 10:50 | Physical Therapy Evaluation ---
PT Evaluation-General Medical Diagnosis Admission Date Nov 19, 2021 at 16:12 Medical Diagnosis: Debility Onset Date: Nov 19, 2021 Therapy Diagnosis Therapy Diagnosis: impaired mobility, strength, endurance Precautions Precautions/Isolations: Fall Prevention, Standard Precautions Referral Physician: Anabel Garcia DO Reason for Referral: Evaluation/Treatment Medical History Pertinent Medical History: Arthritis, CVA, GERD Additional Medical History Past Medical History Surgeries: Coronary Stent Cardiac: Coronary Artery Disease, High Cholesterol, Hypertension Neurological: Stroke Genitourinary: Benign Prostatic Hyperpl Prostate cancer Gastrointestinal: Gastroesophageal Reflux Musculoskeletal: Arthritis, Chronic Back Pain Cancer: Prostate Did You Recieve Any Treatments: Yes History of Blood Disorders: No Reviewed History: Yes Social History Home: Single Level Current Living Status: Spouse Entry Into Home: Stairs With Railing (bilaterally) PT Steps Into Home: 3 Prior Prior Level of Function SCALE: Activities may be completed with or without assistive devices. 7-Syjuuouuwi-ghflspw completes the activity by him/herself with no assistance from a helper. 5-Set-up or Clean-up Assistance-helper sets up or cleans up; patient completes activity. [place] assists only prior to or following the activity. 4-Supervision or Touching Assistance-helper provides verbal cues and/or touching/steadying and/or contact guard assistance as patient completes activity. Assistance may be provided throughout the activity or intermittently. 3-Partial/Moderate Assistance-helper does LESS THAN HALF the effort. [place] lifts, holds or supports trunk or limbs, but provides less than half the effort. 2-Substantial/Maximal Assistance-helper does MORE THAN HALF the effort. [place] lifts or holds trunk or limbs and provides more than half the effort. 8-Cstdwmxpb-odqmke does ALL the effort. Patient does none of the effort to complete the activity. Or, the assistance of 2 or more helpers is required for the patient to complete the activity. If activity was not attempted, code reason: 7-Patient Refused. 9-Not Applicable-not attempted and the patient did not perform the activity before the current illness, exacerbation or injury. 10-Not Attempted due to Environmental Limitations-(lack of equipment, weather restraints, etc.). 88-Not Attempted due to Medical Conditions or Safety Concerns. Bed Mobility: 6 Transfers (B,C,W/C): 6 Gait: 6 Stairs: 6 Indoor Mobility (Ambulation): Independent Stairs: Independent used a SPC, only walking short distances like 20' PT Evaluation-Current Subjective Patient in recliner pre tx, agrees to PT, has no complaints of pain. Pt/Family Goals "to get stronger" Objective Patient Orientation: Person, Place, Situation Attachments: IV ROM/Strength ROM Lower Extremities WNL Strength Lower Extremities LLE (hip flexion 3+/5, knee flexion 4/5, knee extension 4/5, dorsilfexion 4/5), RLE (hip flexion 4/5, knee flexion 4+/5, knee extension 4+/5, dorsilfexion 4+/5) Sensory Vision: Functional Hearing: Functional Hand Dominance: Right Sensation Right Lower Extremit: Intact Sensation Left Lower Extremity: Impaired Transfers Roll Left & Right (QC): 6 Sit to Lying (QC): 4 Lying to Sitting/Side of Bed(Q: 4 Sit to Stand (QC): 4 Chair/Ypy-yd-Imysz Xfer(QC): 4 Toilet Transfer (QC): 4 Car Transfer (QC): 3 Patient performs rolling with independence, supine <-> sit SBA, sit <-> stand and transfers CGA, car transfer min assist. Patient needs assist with left leg when getting out of the car transfer system trainer. Occasional cues for positioning and safety. Gait Does the Patient Walk?: Yes Mode of Locomotion: Walk Anticipated Mode of Locomotion: Walk Walk 10 feet (QC): 4 Walk 50 ft with 2 Turns(QC): 4 Walk 150 ft (QC): 88 Walking 10ft/uneven surface-QC: 4 Distance: 60', 50'x2 Gait Assistive Device: Cane Single Point Comments/Gait Description Patient can ambulate 60' with a single point cane with CGA (including 50' with at least 2 turns of 90 degrees and 10' over an uneven surface). Patient ambulates slowly, has decreased foot clearance on the left side, unsteady with turning. Wheelchair Training Does the Pt Use a Wheelchair?: No Wheel 50 ft with 2 turns (QC): 9 Wheel 150 ft (QC): 9 Stairs #of Steps: 4 1 Step (curb) (QC): 4 4 Steps (QC): 4 12 Steps (QC): 88 Patient can go up and down 4 steps using 2 handrails with CGA, cues for foot placement and safety. Balance Sitting Static: Normal Sitting Dynamic: Normal Standing Static: Fair Standing Dynamic: Fair Picking up an Object (QC): 4 (CGA not using a flight engineer performance qualified) Treatment St level 4 for 15' Assessment/Needs Patient in bed post tx with nurse call, phone, tray, all needs met. Patient has impaired mobility, strength, endurance, residual weakness on left side of body from CVA. CGA for transfers and ambulation. Rehab Potential: Fair PT Short Term Goals Short Term Goals Time Frame: Nov 27, 2021 Roll Left & Right: 6 Sit to lyin Lying to sitting on side of be: 6 Sit to stand: 4 (SBA) Chair/qbb-ha-qsvjt transfer: 4 (SBA) Walk 10 feet: 4 (SBA) Walk 50 feet with two turns: 4 (SBA) PT Alf Goals Alf Goals PT Alf Goals Time Frame: Dec 11, 2021 Roll Left & Right (QC): 6 Sit to Lying (QC): 6 Lying-Sitting on Side/Bed(QC): 6 Sit to Stand (QC): 5 Chair/Rmu-xw-Ndfhx Xfer(QC): 5 Toilet Transfer (QC): 5 Car Transfer (QC): 5 Does the Patient Walk: Yes Walk 10 feet (QC): 5 Walk 50ft with 2 Turns (QC): 5 Walk 150 ft (QC): 5 Walking 10ft on Uneven Surface: 5 1 Step (curb) (QC): 4 (SBA) 4 Steps (QC): 4 (SBA) 12 Steps (QC): 88 Picking up an Object (QC): 4 (SBA) Wheel 50 feet with 2 turns (QC: 9 Wheel 150 feet: 9 PT Plan Problem List Problem List: Activity Tolerance, Functional Strength, Safety, Balance, Gait, Transfer, Bed Mobility, ROM Treatment/Plan Treatment Plan: Continue Plan of Care Treatment Plan: Bed Mobility, Education, Functional Activity Jose Carlos, Functional Strength, Group Therapy, Gait, Safety, Therapeutic Exercise, Transfers Treatment Duration: Dec 11, 2021 Frequency: At least 5 of 7 days/Wk (IRF) Estimated Hrs Per Day: 1.5 hours per day Patient and/or Family Agrees t: Yes Safety Risks/Education Patient Education: Gait Training, Transfer Techniques, Steps, Correct Positioning, Safety Issues Teaching Recipient: Patient Teaching Methods: Demonstration, Discussion Response to Teaching: Reinforcement Needed Discharge Recommendations Plan Patient will perform bed mobility and transfer training, balance and endurance training, functional strengthening, stair training, gait training, and education, to improve functional mobility and independence at home. Therapy Discharge Recommendati: Scheduled Assistance, Home & Family, Post Acute PT Time/GCodes Time In: 1000 Time Out: 1100 Total Billed Treatment Time: 60 Total Billed Treatment 1 visit EVM 15' EX 15' FA 30' FELIZ GRIMM PT Nov 20, 2021 10:50
--- NOTE | 2021-11-20 13:21 | CONSULTATION REPORT ---
DATE OF SERVICE: 11/20/2021 ATTENDING PHYSICIAN: Dr. Garcia. SUMMARY: An 81-year-old white man known to me for cancer of the prostate and some prostate issues. History and physical from Dr. Garcia was reviewed. The patient has been having some issues urinating and his urine was kind of positive. It was sent for culture and treatment pending on that. The patient is on Flomax daily, which he tolerates it well. IMPRESSION: 1. History of CA of the prostate. 2. Prostatism. PLAN: Daily bladder scan postvoid residual and p.r.n. and we will manage accordingly. The plan was fully explained to the patient. Job ID: [id number] DocumentID: [id number] Dictated Date: 11/20/2021 10:06:24 [employer] Date: 11/20/2021 13:20:52 Dictated By: QING WAN MD
--- NOTE | 2021-11-20 14:20 | Physical Therapy Daily Note ---
PT Daily Note-Current Subjective Patient in bed pre tx, agrees to PT, has pain in right arm at an IV site, has a ice pack on it that nursing put there. Appearance Patient in bed post tx with nurse call, phone, tray, all needs met. Mental Status Patient Orientation: Person, Place, Situation Attachments: IV Transfers SCALE: Activities may be completed with or without assistive devices. 9-Vqyugfuken-qztldzr completes the activity by him/herself with no assistance from a helper. 5-Set-up or Clean-up Assistance-helper sets up or cleans up; patient completes activity. [place] assists only prior to or following the activity. 4-Supervision or Touching Assistance-helper provides verbal cues and/or touching/steadying and/or contact guard assistance as patient completes activity. Assistance may be provided throughout the activity or intermittently. 3-Partial/Moderate Assistance-helper does LESS THAN HALF the effort. [place] lifts, holds or supports trunk or limbs, but provides less than half the effort. 2-Substantial/Maximal Assistance-helper does MORE THAN HALF the effort. [place] lifts or holds trunk or limbs and provides more than half the effort. 5-Ptmdqtude-tqprvh does ALL the effort. Patient does none of the effort to complete the activity. Or, the assistance of 2 or more helpers is required for the patient to complete the activity. If activity was not attempted, code reason: 7-Patient Refused. 9-Not Applicable-not attempted and the patient did not perform the activity before the current illness, exacerbation or injury. 10-Not Attempted due to Environmental Limitations-(lack of equipment, weather restraints, etc.). 88-Not Attempted due to Medical Conditions or Safety Concerns. Exercises Supine Ex: Ankle pumps, Quad Set, Glut sets, Heel Slides, Short Arc Quads, Straight leg raise, Hip abd/add Supine Reps: 20 Treatments LE ROM Assessment Current Status: Fair Progress patient needed a couple of rest breaks due to fatigue PT Short Term Goals Short Term Goals Time Frame: Nov 27, 2021 Roll Left & Right: 6 Sit to lyin Lying to sitting on side of be: 6 Sit to stand: 4 (SBA) Chair/jpd-ub-cuqes transfer: 4 (SBA) Walk 10 feet: 4 (SBA) Walk 50 feet with two turns: 4 (SBA) PT Death Claim Clerk Goals Usp Goals PT Usp Goals Time Frame: Dec 11, 2021 Roll Left & Right (QC): 6 Sit to Lying (QC): 6 Lying-Sitting on Side/Bed(QC): 6 Sit to Stand (QC): 5 Chair/Oiw-rf-Ylult Xfer(QC): 5 Toilet Transfer (QC): 5 Car Transfer (QC): 5 Does the Patient Walk: Yes Walk 10 feet (QC): 5 Walk 50ft with 2 Turns (QC): 5 Walk 150 ft (QC): 5 Walking 10ft on Uneven Surface: 5 1 Step (curb) (QC): 4 (SBA) 4 Steps (QC): 4 (SBA) 12 Steps (QC): 88 Picking up an Object (QC): 4 (SBA) Wheel 50 feet with 2 turns (QC: 9 Wheel 150 feet: 9 PT Plan Problem List Problem List: Activity Tolerance, Functional Strength, Safety, Balance, Gait, Transfer, Bed Mobility, ROM Treatment/Plan Treatment Plan: Continue Plan of Care Treatment Plan: Bed Mobility, Education, Functional Activity Jose Carlos, Functional Strength, Group Therapy, Gait, Safety, Therapeutic Exercise, Transfers Treatment Duration: Dec 11, 2021 Frequency: At least 5 of 7 days/Wk (IRF) Estimated Hrs Per Day: 1.5 hours per day Patient and/or Family Agrees t: Yes Safety Risks/Education Patient Education: Correct Positioning, Safety Issues Teaching Recipient: Patient Teaching Methods: Demonstration, Discussion Response to Teaching: Reinforcement Needed Time/GCodes Time In: 1405 Time Out: 1420 Total Billed Treatment Time: 15 Total Billed Treatment 1 visit EX FELIZ MARVIN PT Nov 20, 2021 14:20
[2021-11-20] MEDS: TAMSULOSIN 0.4 MG (FLOMAX) CAP PO SCH (17:57)
[2021-11-20 19:25] VITALS: BP 135/75
[2021-11-20] MEDS: ENOXAPARIN 40 MG/0.4 ML (LOVENOX) SYR SC SCH (20:46)
--- NOTE | 2021-11-21 05:40 | PM&R Progress Note ---
Subjective HPI/CC On Admission Date Seen by Provider: Nov 21, 2021 Time Seen by Provider: 09:00 Subjective/Events-last exam 11/21/2021: Patient improved We will Hep-Lock IV fluid Patient will focus on dietary consumption Urinary frequency will be addressed by urology No pain is reported Weakness is noted Checked meds and labs Review of Systems General: Fatigue, Malaise Focused Exam Lactate Level 11/19/21 17:00: Lactic Acid Level 1.13 Objective Exam Vital Signs Vital Signs Date Time Temp Pulse Resp B/P (MAP) Pulse Ox O2 Delivery O2 Flow Rate FiO2 11/21/21 20:16 36.6 83 20 125/79 (94) 92 Room Air Capillary Refill : General Appearance: WD/WN, Anxious, Chronically ill, Thin, Other (Frail) HEENT: PERRL/EOMI, Normal ENT Inspection, Pharynx Normal Neck: Full Range of Motion, Normal Inspection, Non Tender, Supple, Carotid Bruit Respiratory: Chest Non Tender, Lungs Clear, No Accessory Muscle Use, No Respiratory Distress, Decreased Breath Sounds Cardiovascular: Regular Rate, Rhythm, No Edema, No Gallop, No JVD, No Murmur, Normal Peripheral Pulses Gastrointestinal: Normal Bowel Sounds, No Organomegaly, No Pulsatile Mass, Non Tender, Soft Back: Normal Inspection, No CVA Tenderness, No Vertebral Tenderness Extremity: Normal Capillary Refill, Normal Inspection, Normal Range of Motion (Left-sided hemiparesis), Non Tender, No Calf Tenderness, No Pedal Edema Neurologic/Psychiatric: Alert, Oriented x3, No Motor/Sensory Deficits, registered nurse obstetrics II- XII Norm as Tested, Abnormal Gait, Depressed Affect, Motor Weakness (Left weakness greater than right but generalized throughout) Skin: Normal Color, Warm/Dry Lymphatic: No Adenopathy Results/Procedures Lab Laboratory Tests 11/21/21 06:18 Patient resulted labs reviewed. FIM Transfers Therapy Code Descriptions/Definitions Functional [place] Measure: 0=Not Assessed/NA 4=Minimal Assistance 1=Total Assistance 5=Supervision or Setup 2=Maximal Assistance 6=Modified [place] 3=Moderate Assistance 7=Complete IndependenceSCALE: Activities may be completed with or without assistive devices. 0-Pnzienyxia-ygtlpkh completes the activity by him/herself with no assistance from a helper. 5-Set-up or Clean-up Assistance-helper sets up or cleans up; patient completes activity. [place] assists only prior to or following the activity. 4-Supervision or Touching Assistance-helper provides verbal cues and/or touching/steadying and/or contact guard assistance as patient completes activity. Assistance may be provided throughout the activity or intermittently. 3-Partial/Moderate Assistance-helper does LESS THAN HALF the effort. [place] lifts, holds or supports trunk or limbs, but provides less than half the effort. 2-Substantial/Maximal Assistance-helper does MORE THAN HALF the effort. [place] lifts or holds trunk or limbs and provides more than half the effort. 1-Pneiumawv-ohbgnf does ALL the effort. Patient does none of the effort to complete the activity. Or, the assistance of 2 or more helpers is required for the patient to complete the activity. If activity was not attempted, code reason: 7-Patient Refused. 9-Not Applicable-not attempted and the patient did not perform the activity before the current illness, exacerbation or injury. 10-Not Attempted due to Environmental Limitations-(lack of equipment, weather restraints, etc.). 88-Not Attempted due to Medical Conditions or Safety Concerns. Roll Left to Right (QC): 6 Sit to Lying (QC): 4 Sit to Stand (QC): 4 Chair/Tue-vj-Alren Xfer(QC): 4 Car Transfer (QC): 3 Gait Training Does the Patient Walk?: Yes Walk 10 feet (QC): 4 Walk 50 ft with 2 Turns(QC): 4 Walk 150 ft (QC): 88 Walking 10ft/uneven surface-QC: 4 Gait Assistive Device: Cane Single Point Wheelchair Training Does the Pt Use a Wheelchair?: No Wheel 50 ft with 2 turns (QC): 9 Wheel 150 ft (QC): 9 Stair Training #of Steps: 4 1 Step (curb) (QC): 4 4 Steps (QC): 4 12 Steps (QC): 88 Balance Picking up an Object (QC): 4 (CGA not using a economic development specialist) ADL-Treatment Eating (QC): 5 (set up per pt report.) Oral Hygiene (QC): 3 (Min A. Pt able to place/remove dentures. Assist with brushing/rinsing dentures.) Shower/Bathe Self (QC): 3 (Pt required assistance washing bilateral feet, and assistance with washing R upper and under arm.) Upper Body Dressing (QC): 2 (Pt required assistance threading BUEs, and overhead. ) Lower Body Dressing (QC): 3 (Min A with threading LLE and L side pant hike. Pt able to thread RLE and complete R pant hike with some encouragement.) On/Off Footwear (QC): 3 (Mod A, pt able to doff with encouragment, assistance donning bilateral socks.) Toileting Hygiene (QC): 2 (Pt required assistance with clothing management up/down on L side, and assistance with hygiene for thoroughness.) Assessment/Plan Assessment and Plan Assess & Plan/Chief Complaint Assessment: Severe debility and worsening weakness post Covid 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 placed on midodrine Previous stroke with left-sided weakness CAD previous stents Hypertension Hyperlipidemia Prostate cancer Carotid stenosis Urinary frequency Dehydration now resolved after IV fluids GERD Acute UTI coag negative staph started on Vanc Poor nutrition Plan: Supportive care IV fluids Bladder scan Aggressive rehab protocol Dr Valencia consult Vanc empirically 11/21/2021: Vancomycin Hep-Lock IV fluid (1) Debility (2) Recurrent syncope Status: Acute (3) Hypotension Status: Acute (4) Prostate cancer Status: Acute (5) Dehydration Status: Acute (6) History of cerebrovascular accident (7) Primary hypertension (8) Mixed hyperlipidemia (9) Orthostatic hypotension Status: Acute (10) Cerebral infarction due to unspecified occlusion or stenosis 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 GUILLERMO CABELLO DO Nov 21, 2021 05:40
--- NOTE | 2021-11-21 05:40 | Individualized Plan of Care ---
Individualized Plan of Care Rehab Nursing IPOC Order Admission Date Nov 19, 2021 at 16:12 Current Orders Orders Admission Order(Inpt,Obs,Sdc) (11/19/21 15:46) Nilesh Morales (11/19/21 15:46) Sequential Compression Device (11/19/21 15:46) Banquet Line Cook-Inpt Rehab Con (11/19/21 15:46) Rehab Nursing Orders-Ipoc (11/19/21 15:46) Physical Therapy Rehab Orders (11/19/21 15:46) Occupational Therapy Rehab Ord (11/19/21 15:46) Speech Therapy Rehab Orders (11/19/21 15:46) Cbc With Automated Diff (11/20/21 06:00) Comprehensive Metabolic Panel (11/20/21 06:00) Precautions (Aru) (11/19/21 15:46) Weekly Weight WEEK (11/19/21 15:46) Rehab-Intensity Of Therapy (11/19/21 15:46) Initiate Admission Nursing Pro .admission (11/19/21 15:46) Alprazolam Tablet (Xanax Tablet) (11/19/21 16:00) Calcium Carbonate Chew Tablet (Antacid C (11/19/21 16:00) Diphenhydramine Tablet (Benadryl Tablet) (11/19/21 16:00) Docusate Sodium Capsule (Colace Capsule) (11/19/21 21:00) Docusate Sodium Capsule (Colace Capsule) (11/19/21 16:00) Bisacodyl Suppository (Dulcolax Supposit (11/19/21 16:00) Lactulose Oral Solution (Enulose Oral So (11/19/21 16:00) Na Phos/Na Biphos Enema (Fleet Enema Christiano (11/19/21 16:00) Guaifenesin/Codeine Syrup (Robitussin Ac (11/19/21 16:00) Loperamide Tablet (Imodium Tablet) (11/19/21 16:00) Melatonin Tablet (Melatonin Tablet) (11/19/21 16:00) Polyethylene Glycol Powder Pkt (Miralax (11/19/21 21:00) Ondansetron Oral Dissolve Tab (Zofran (11/19/21 16:00) Senna S Tablet (Senokot S Tablet) (11/19/21 21:00) Acetaminophen Tablet/Caplet (Tylenol T (11/19/21 16:00) Code/Resuscitation (11/19/21 15:46) Sequential Compression Device ONCE (11/19/21 15:46) Initiate Admission Nursing Pro .admission (11/19/21 15:46) Cbc With Automated Diff (11/19/21 15:46) Comprehensive Metabolic Panel (11/19/21 15:46) Urinalysis (11/19/21 18:20) Ns Iv 1000 Ml (Sodium Chloride 0.9%) (11/19/21 16:00) Troponin I Abimael (11/19/21 15:46) Bnp Abimael (11/19/21 15:46) Chest 1 View, Ap/Pa Only (11/19/21 15:46) Ekg Tracing (11/19/21 15:46) Lactic Acid Analyzer (11/19/21 15:46) Procalcitonin (Pct) (11/19/21 15:46) Transfer - Bed/Room/Location (11/19/21 16:10) Outpatient Physician Order/Script (11/19/21 16:13) General/Regular (11/19/21 Dinner) Ensure Plus [place] (11/19/21 17:24) Ns Iv 1000 Ml (Sodium Chloride 0.9%) (11/19/21 16:50) Urine Culture (11/19/21 18:10) Aspirin Enteric Coated Tablet (Ecotrin T (11/20/21 09:00) Atorvastatin Tablet (Lipitor Tablet) (11/19/21 21:00) Clopidogrel Tablet (Plavix Tablet) (11/20/21 09:00) Famotidine Tablet (Pepcid Tablet) (11/20/21 09:00) Midodrine Tablet (Proamatine) (11/19/21 21:00) Pantoprazole Tablet (Protonix Tablet) (11/20/21 07:00) Tamsulosin Capsule (Flomax Capsule) (11/20/21 18:00) Diclofenac 1% Gel (Voltaren 1% Gel) (11/19/21 23:15) Incentive Spirometry (Nursing) Q2H (11/19/21 20:08) Bladder Scan-Straight Cath-Pos (11/19/21 20:08) Enoxaparin Injection (Lovenox Injectio (11/19/21 20:15) Atorvastatin Tablet (Lipitor Tablet) (11/19/21 20:56) Enoxaparin Injection (Lovenox Injectio (11/19/21 21:34) Incentive Spirometry Initial (11/19/21 23:33) Enlive Variety (11/20/21 07:30) Vancomycin Injection (Vancomycin Injecti (11/20/21 09:15) Consult Urology (11/20/21 09:12) Vancomycin Injection (Vancomycin Injecti (11/20/21 10:00) Vancomycin Injection (Vancomycin Injecti (11/21/21 10:00) Trough Order (Trough Order-Pharmacy Orde (11/22/21 09:00) Vancomycin,Trough (11/22/21 09:00) Bladder Scan-Straight Cath-Pos (11/20/21 10:04) Patient Visit (11/20/21 ) Speech Sound Lang Comp (11/20/21 ) Treat. Speech/Lang/Voice (11/20/21 ) Venous Access Request Order (11/20/21 11:43) Midline Cap Change Q7D (11/20/21 11:43) Midline Dressing Change Q7D (11/20/21 11:43) Patient Visit (11/20/21 ) Pt Eval Moderate Complexity (11/20/21 ) Exercise Therap, Ea 15 Min (11/20/21 ) Functional Activities, Ea 15 (11/20/21 ) Intake & Output 06,14,22 (11/20/21 17:24) Cbc With Automated Diff (11/21/21 05:40) Comprehensive Metabolic Panel (11/21/21 05:40) Behavorial Health Consult (11/21/21 12:04) Diclofenac 1% Gel (Voltaren 1% Gel) (11/21/21 14:00) Nursing Communication (Order) (11/21/21 13:54) Heating Pad (11/21/21 13:54) Patient Visit (11/21/21 ) Functional Activities, Ea 15 (11/21/21 ) Exercise Therap, Ea 15 Min (11/21/21 ) Gait Training, Ea 15 Min (11/21/21 ) Rehab Nursing Orders: Ongoing Assess. of Cognitive Status, Ongoing Assess. of Function Status, Bladder Management, Bladder Scan, Bladder Training, Bowel Management, Disease Management & Educaiton, DVT Prophylaxis, Fall Prevention, Fluid/Electrolyte/Nutrition Mgmt, Infection Prevention, Medication Management & Education, Management of Risks & Complications, Management of Skin Intergrity, Nutrition Management, Pain Management, Patient/Family Support, Safety Management Intensity of Therapy to be met Patient to be seen: Min.3h per day/5 of 7d PT IPOC Problem List: Activity Tolerance, Functional Strength, Safety, Balance, Gait, Transfer, Bed Mobility, ROM Treatment Plan: Continue Plan of Care Bed Mobility, Education, Functional Activity Jose Carlos, Functional Strength, Group Therapy, Gait, Safety, Therapeutic Exercise, Transfers Treatment Duration: Dec 11, 2021 Frequency: At least 5 of 7 days/Wk (IRF) Estimated Hrs Per Day: 1.5 hours per day OT IPOC Problems: Decreased Activ Tolerance, Decreased UE Strength, Impaired Coordination, Impaired Funct Balance, Impaired I ADL's, Impaired Self-Care Skills, Restricted Funct UE ROM OT Treatment, Training and Edu: Yes Plan of Care: ADL Retraining, Functional Mobility, UE Funct Exercise/Act, UE Neuromus Re-Ed/Coord Treatment Duration: Dec 14, 2021 Frequency: At least 5 of 7 days/Wk (IRF) Estimated Hrs Per Day: 1.[address] IPOC Speech Therapy Treatment Plan: Discontinue ST Treatment Duration: Nov 20, 2021 Frequency: 1 time per week Estimated Hrs Per Day: .25 hour per day Banquet Line Cook/Case Mgmt Banquet Line Cook/Case Managemen: Discharge Planning Dietitian/Calenderer Dietitian/Calenderer to monitor nutritional status and make changes and/or recommendations as needed and work with speech pathology on dietary upgrades as the occur. Physician IPOC Medical Issues being managed closely and that require the 24 hour availability of a physician: Severe weakness following Covid and worsened left-sided weakness from CVA with dehydration and staph epidermidis UTI with urinary frequency and sleep deprivation along with poor nutrition will require close monitoring for any decompensation Medical Issues: Bowel/Bladder Function, DVT Prophylaxis, Falls Precautions, Fluid/Electrolyte/Nutrition Balance, Infection Protection, Pain Management, Weight Bearing Precautions Brief Synthesis of Preadmission Screen, Post-Admission Evaluation, and Therapy Evaluations: PT and OT will focus on regaining function with the use of assistive devices focusing on nutrition and energy conservation will require close monitoring in order to regain function to return home Medical Prognosis: Good Anticipated Length of Stay: 7 days GUILLERMO CABELLO DO Nov 21, 2021 05:40
[2021-11-21] MEDS: NS IV 1000 ML 1,000 ML IV SCH (06:12)
[2021-11-21 06:26] LABS: BASOPHILS % (AUTO) 0 % (0-10); EOSINOPHILS # (AUTO) 0.1 10^3/uL (0.0-0.3); EOSINOPHILS % (AUTO) 2 % (0-10); HEMATOCRIT 34 % (40-54); LYMPHOCYTES % (AUTO) 19 % (12-44); MEAN CORPUSCULAR HEMOGLOBIN 29 pg (25-34); MEAN CORPUSCULAR HGB CONC 33 g/dL (32-36); MEAN CORPUSCULAR VOLUME 88 fL (80-99); MEAN PLATELET VOLUME 8.5 fL (9.0-12.2); MONOCYTES # (AUTO) 0.5 10^3/uL (0.0-1.0); MONOCYTES % (AUTO) 9 % (0-12); NEUTROPHILS # (AUTO) 3.6 10^3/uL (1.8-7.8); NEUTROPHILS % (AUTO) 69 % (42-75); PLATELET COUNT 289 10^3/uL (130-400); WHITE BLOOD COUNT 5.2 10^3/uL (4.3-11.0)
[2021-11-21] MEDS: PANTOPRAZOLE 40 MG (PROTONIX) TAB PO SCH ×2 (06:48→16:56)
[2021-11-21 06:50] LABS: ALBUMIN 2.5 GM/DL (3.2-4.5); POTASSIUM 3.6 MMOL/L (3.6-5.0)
[2021-11-21 06:51] LABS: CALCIUM 8.1 MG/DL (8.5-10.1)
[2021-11-21 06:52] LABS: TOTAL PROTEIN 5.6 GM/DL (6.4-8.2)
[2021-11-21 06:54] LABS: BILIRUBIN,TOTAL 0.5 MG/DL (0.1-1.0)
[2021-11-21 06:56] LABS: CREATININE SERUM 0.66 MG/DL (0.60-1.30)
[2021-11-21 07:24] VITALS: BP 140/67
--- NOTE | 2021-11-21 07:48 | Occupational Ther Daily Note ---
OT Current Status-Daily Note Subjective Pt alert, in bathroom toileting. Pt agrees to therapy. No c/o pain at this time. Mental Status/Objective Patient Orientation: Person, Place, Time, Situation ADL-Treatment Pt able to cleanse patrick area after toileting sitting on toilet. Min A while standing to hike pants over R hip, assist with L hip. Pt then ambulated to EOB with CGA no AD. Pt requires assist to open packages to set up meal then is able to use regular utensils to eat breakfast. After session, pt sitting EOB with call light/phone in reach. All needs met. Therapy Code Descriptions/Definitions Functional [place] Measure: 0=Not Assessed/NA 4=Minimal Assistance 1=Total Assistance 5=Supervision or Setup 2=Maximal Assistance 6=Modified [place] 3=Moderate Assistance 7=Complete IndependenceSCALE: Activities may be completed with or without assistive devices. 9-Jcwxfhtfnf-xppnwkp completes the activity by him/herself with no assistance f rom a helper. 5-Set-up or Clean-up Assistance-helper sets up or cleans up; patient completes activity. [place] assists only prior to or following the activity. 4-Supervision or Touching Assistance-helper provides verbal cues and/or touching/steadying and/or contact guard assistance as patient completes activity. Assistance may be provided throughout the activity or intermittently. 3-Partial/Moderate Assistance-helper does LESS THAN HALF the effort. [place] lifts, holds or supports trunk or limbs, but provides less than half the effort. 2-Substantial/Maximal Assistance-helper does MORE THAN HALF the effort. [place] lifts or holds trunk or limbs and provides more than half the effort. 1-Lzdakfjrf-bjczvd does ALL the effort. Patient does none of the effort to complete the activity. Or, the assistance of 2 or more helpers is required for the patient to complete the activity. If activity was not attempted, code reason: 7-Patient Refused. 9-Not Applicable-not attempted and the patient did not perform the activity before the current illness, exacerbation or injury. 10-Not Attempted due to Environmental Limitations-(lack of equipment, weather restraints, etc.). 88-Not Attempted due to Medical Conditions or Safety Concerns. Eating (QC): 5 Toileting Hygiene (QC): 3 Toilet Transfer (QC): 4 OT Short Term Goals Short Term Goals Time Frame: Nov 28, 2021 Toileting hygiene: 3 Upper body dressin OT Career Technical Supervisor Goals Skilled Nursing Goals Time Frame: Dec 14, 2021 Eating (QC): 5 Oral Hygiene (QC): 5 Toileting Hygiene (QC): 4 Shower/Bathe Self (QC): 4 Upper Body Dressing (QC): 4 Lower Body Dressing (QC): 4 On/Off Footwear (QC): 4 Additional Goals: 1-Demonstrate ADL Tasks, 2-Verbalize Understanding, 3- ImproveStrength/Jose Carlos 1=Demonstrate adherence to instructed precautions during ADL tasks. 2=Patient will verbalize/demonstrate understanding of assistive devices/modifications for ADL. 3=Patient will improve strength/tolerance for activity to enable patient to perform ADL's. OT Education/Plan Problem List/Assessment Assessment: Decreased Activ Tolerance, Impaired Self-Care Skills, Restricted Funct UE ROM (LUE) Discharge Recommendations Plan/Recommendations: Continue POC Treatment Plan/Plan of Care Patient would benefit from OT for education, treatment and training to promote independence in ADL's, mobility, safety and/or upper extremity function for ADL's. Plan of Care: ADL Retraining, Functional Mobility, UE Funct Exercise/Act, UE Neuromus Re-Ed/Coord Treatment Duration: Dec 14, 2021 Frequency: At least 5 of 7 days/Wk (IRF) Estimated Hrs Per Day: 1.5 hours per day Agreement: Yes Rehab Potential: Fair Time/GCodes Start Time: 07:00 Stop Time: 07:30 Total Time Billed (hr/min): 30 Billed Treatment Time 1 visit-ADL 2 (30 min) AAKASH HODGES Nov 21, 2021 07:47
[2021-11-21] MEDS: MIDODRINE 10 MG (PROAMATINE) TAB PO SCH ×3 (09:12→20:34)
[2021-11-21] MEDS: FAMOTIDINE 20 MG (PEPCID) TABLET PO SCH (09:12)
[2021-11-21] MEDS: ASPIRIN E.C. 81 MG (ECOTRIN) TAB PO SCH (09:12)
[2021-11-21] MEDS: CLOPIDOGREL 75 MG (PLAVIX) TABLET PO SCH (09:12)
--- NOTE | 2021-11-21 09:55 | Physical Therapy Daily Note ---
PT Daily Note-Current Subjective Pt. up in recliner states he has had a rough night with little to no sleep. "Hoping I can get some sleep today" Requests frequent rest breaks and states he gets fatigued very easily Pain Location: No Pain Reported Mental Status Patient Orientation: Normal For Age Transfers SCALE: Activities may be completed with or without assistive devices. 9-Raduyxqfan-ytrblpt completes the activity by him/herself with no assistance from a helper. 5-Set-up or Clean-up Assistance-helper sets up or cleans up; patient completes activity. [place] assists only prior to or following the activity. 4-Supervision or Touching Assistance-helper provides verbal cues and/or touching/steadying and/or contact guard assistance as patient completes activity. Assistance may be provided throughout the activity or intermittently. 3-Partial/Moderate Assistance-helper does LESS THAN HALF the effort. [place] lifts, holds or supports trunk or limbs, but provides less than half the effort. 2-Substantial/Maximal Assistance-helper does MORE THAN HALF the effort. [place] lifts or holds trunk or limbs and provides more than half the effort. 9-Nmbzvlayq-weyoca does ALL the effort. Patient does none of the effort to complete the activity. Or, the assistance of 2 or more helpers is required for the patient to complete the activity. If activity was not attempted, code reason: 7-Patient Refused. 9-Not Applicable-not attempted and the patient did not perform the activity before the current illness, exacerbation or injury. 10-Not Attempted due to Environmental Limitations-(lack of equipment, weather restraints, etc.). 88-Not Attempted due to Medical Conditions or Safety Concerns. Roll Left & Right (QC): 6 Sit to Lying (QC): 6 Lying to Sitting/Side of Bed(Q: 6 Sit to Stand (QC): 6 Chair/Ywq-ab-Swpid Xfer(QC): 4 pt. needed some guidance while approaching the bed or a chair after walking, L neglect and vision issues etc Gait Training Does the Patient Walk?: Yes Walk 10 feet (QC): 4 Walk 50 ft with 2 Turns(QC): 4 Gait Persons Needed: 1 Gait Assistive Device: Cane Single Point near even step length, no LOB, c/o fatigue and needed rest breaks and stopping places to sit while walking Exercises Supine Ex: Quad Set, Glut sets, Heel Slides, Hip abd/add Supine Reps: 15 Seated Therapy Exercises: Ankle pumps, Sit to stand, Long arc quads, Hip flexion, Hip abd/add Seated Reps: 15 NuStep Minutes: 8 NuStep Workload: 2 Treatments TRFs, gait , therex Assessment Current Status: Good Progress fatigues and needs rest breaks, no LOB wit gait PT Short Term Goals Short Term Goals Time Frame: Nov 27, 2021 Roll Left & Right: 6 Sit to lyin Lying to sitting on side of be: 6 Sit to stand: 4 (SBA) Chair/fsg-qd-yhivx transfer: 4 (SBA) Walk 10 feet: 4 (SBA) Walk 50 feet with two turns: 4 (SBA) PT Airport Clerk Goals Airport Clerk Goals PT Halfway Goals Time Frame: Dec 11, 2021 Roll Left & Right (QC): 6 Sit to Lying (QC): 6 Lying-Sitting on Side/Bed(QC): 6 Sit to Stand (QC): 5 Chair/Oyj-ik-Ynulu Xfer(QC): 5 Toilet Transfer (QC): 5 Car Transfer (QC): 5 Does the Patient Walk: Yes Walk 10 feet (QC): 5 Walk 50ft with 2 Turns (QC): 5 Walk 150 ft (QC): 5 Walking 10ft on Uneven Surface: 5 1 Step (curb) (QC): 4 (SBA) 4 Steps (QC): 4 (SBA) 12 Steps (QC): 88 Picking up an Object (QC): 4 (SBA) Wheel 50 feet with 2 turns (QC: 9 Wheel 150 feet: 9 PT Plan Treatment/Plan Treatment Plan: Continue Plan of Care Treatment Plan: Bed Mobility, Education, Functional Activity Jose Carlos, Functional Strength, Group Therapy, Gait, Safety, Therapeutic Exercise, Transfers Treatment Duration: Dec 11, 2021 Frequency: At least 5 of 7 days/Wk (IRF) Estimated Hrs Per Day: 1.5 hours per day Patient and/or Family Agrees t: Yes Safety Risks/Education Patient Education: Gait Training, Transfer Techniques, Correct Positioning, Disease Process, Safety Issues Teaching Recipient: Patient Teaching Methods: Demonstration, Discussion Response to Teaching: Verbalize Understanding, Return Demonstration, Reinforcement Needed Time/GCodes Time In: 900 Time Out: 1000 Total Billed Treatment Time: 60 Total Billed Treatment 1,FA20m,EX25m,GT15m MIKE MCKNIGHT METAL ROLLING MILL OPERATOR Nov 21, 2021 09:55
[2021-11-21] MEDS: VANCOMYCIN 1 GM/NS 250 ML IVPB IV SCH ×2 (10:32)
--- NOTE | 2021-11-21 11:06 | Progress Note - Urology ---
Progress Note-Urology Progress Notes/Assess & Plan Progress/Assessment & Plan VOIDING WELL. EMPTIES WELL. PVR 14CC Final Diagnosis CA PROSTATE, RETENTION QING WAN MD Nov 21, 2021 11:06
--- NOTE | 2021-11-21 11:37 | Occupational Ther Daily Note ---
OT Current Status-Daily Note Subjective Pt alert, lying in bed. Pt agrees to therapy. No c/o pain except with L UE movement. Mental Status/Objective Patient Orientation: Person, Place, Time, Situation Attachments: IV ADL-Treatment Independent with oral care sitting at sink. Mod A upper body dressing, using L UE-->head-->R UE sequence to decrease pain with L shldr. Max A lower body dressing. Will educate pt on utilizing AE for lower body dressing. Shower completed mostly sitting on shower bench then SBA in standing while pt cleanses buttocks/patrick area. Max A for footwear. CGA for ambulation around room, no AD used. Therapy Code Descriptions/Definitions Functional [place] Measure: 0=Not Assessed/NA 4=Minimal Assistance 1=Total Assistance 5=Supervision or Setup 2=Maximal Assistance 6=Modified [place] 3=Moderate Assistance 7=Complete IndependenceSCALE: Activities may be completed with or without assistive devices. 8-Kqtaiyuyoe-biblphc completes the activity by him/herself with no assistance from a helper. 5-Set-up or Clean-up Assistance-helper sets up or cleans up; patient completes activity. [place] assists only prior to or following the activity. 4-Supervision or Touching Assistance-helper provides verbal cues and/or touching/steadying and/or contact guard assistance as patient completes activity. Assistance may be provided throughout the activity or intermittently. 3-Partial/Moderate Assistance-helper does LESS THAN HALF the effort. [place] lifts, holds or supports trunk or limbs, but provides less than half the effort. 2-Substantial/Maximal Assistance-helper does MORE THAN HALF the effort. [place] lifts or holds trunk or limbs and provides more than half the effort. 4-Ytcakzhet-nxbrhy does ALL the effort. Patient does none of the effort to complete the activity. Or, the assistance of 2 or more helpers is required for the patient to complete the activity. If activity was not attempted, code reason: 7-Patient Refused. 9-Not Applicable-not attempted and the patient did not perform the activity before the current illness, exacerbation or injury. 10-Not Attempted due to Environmental Limitations-(lack of equipment, weather restraints, etc.). 88-Not Attempted due to Medical Conditions or Safety Concerns. Eating (QC): 5 Oral Hygiene (QC): 6 Shower/Bathe Self (QC): 4 Upper Body Dressing (QC): 3 (mod A) Lower Body Dressing (QC): 2 On/Off Footwear: 2 Toileting Hygiene (QC): 3 Toilet Transfer (QC): 4 Other Treatment Requested to nrsg that pt have ointment for pain and heating pad. Massage and gently stretch to L UE to decrease pain and tightness and increase AROM. After therapy, pt lying in bed with call light/phone in reach. All needs met in room. OT Short Term Goals Short Term Goals Time Frame: Nov 28, 2021 Toileting hygiene: 3 Upper body dressin OT Machine Operator Assistant Goals Senior Living Goals Time Frame: Dec 14, 2021 Eating (QC): 5 Oral Hygiene (QC): 5 Toileting Hygiene (QC): 4 Shower/Bathe Self (QC): 4 Upper Body Dressing (QC): 4 Lower Body Dressing (QC): 4 On/Off Footwear (QC): 4 Additional Goals: 1-Demonstrate ADL Tasks, 2-Verbalize Understanding, 3- ImproveStrength/Jose Carlos 1=Demonstrate adherence to instructed precautions during ADL tasks. 2=Patient will verbalize/demonstrate understanding of assistive devices/modifications for ADL. 3=Patient will improve strength/tolerance for activity to enable patient to perform ADL's. OT Education/Plan Problem List/Assessment Assessment: Decreased Activ Tolerance, Decreased UE Strength, Impaired Funct Balance, Impaired Self-Care Skills, Restricted Funct UE ROM, Visual-Perceptual Deficit (L visual field cut) Discharge Recommendations Plan/Recommendations: Continue POC Treatment Plan/Plan of Care Patient would benefit from OT for education, treatment and training to promote independence in ADL's, mobility, safety and/or upper extremity function for ADL's. Plan of Care: ADL Retraining, Functional Mobility, UE Funct Exercise/Act, UE Neuromus Re-Ed/Coord Treatment Duration: Dec 14, 2021 Frequency: At least 5 of 7 days/Wk (IRF) Estimated Hrs Per Day: 1.5 hours per day Agreement: Yes Rehab Potential: Fair Time/GCodes Start Time: 10:00 Stop Time: 11:30 Total Time Billed (hr/min): 90 Billed Treatment Time 1 visit-ADL 5 (70 min) NM 1 (20 min) AAKASH HODGES Nov 21, 2021 11:37
[2021-11-21] MEDS: polyethylene glycoL POWDER 17 GM (MIRALAX) PACK PO SCH ×2 (12:21→20:02)
[2021-11-21] MEDS: SENNA W/DOCUSATE (SENOKOT S) TABLET PO SCH ×2 (12:21→20:02)
[2021-11-21] MEDS: DOCUSATE SODIUM 100 MG (COLACE) CAP PO SCH ×2 (12:21→20:02)
[2021-11-21] MEDS ORDERED: DICLOFENAC 1% GEL 100 GM (VOLTAREN) TUBE TOP PRN (14:00)
[2021-11-21] MEDS: TAMSULOSIN 0.4 MG (FLOMAX) CAP PO SCH (17:10)
[2021-11-21 20:16] VITALS: BP 125/79
[2021-11-21] MEDS: ENOXAPARIN 40 MG/0.4 ML (LOVENOX) SYR SC SCH (20:34)
--- NOTE | 2021-11-22 06:19 | PM&R Progress Note ---
Subjective HPI/CC On Admission Date Seen by Provider: Nov 22, 2021 Time Seen by Provider: 12:15 Subjective/Events-last exam 11/22/2021: Patient much improved Urology change Flomax to twice a day Minimal post void residual Patient feels like he is stronger No falls Reviewed urine culture 11/21/2021: Patient improved We will Hep-Lock IV fluid Patient will focus on dietary consumption Urinary frequency will be addressed by urology No pain is reported Weakness is noted Checked meds and labs Review of Systems General: Fatigue, Malaise Genitourinary: Dysuria, Frequency Neurological: Weakness, Incoordination Focused Exam Lactate Level Objective Exam Vital Signs Vital Signs Date Time Temp Pulse Resp B/P (MAP) Pulse Ox O2 Delivery O2 Flow Rate FiO2 11/22/21 20:10 Room Air 11/22/21 19:46 36.6 82 18 133/70 (91) 91 Capillary Refill : General Appearance: WD/WN, Anxious, Chronically ill, Thin, Other (Frail) HEENT: PERRL/EOMI, Normal ENT Inspection, Pharynx Normal Neck: Full Range of Motion, Normal Inspection, Non Tender, Supple, Carotid Bruit Respiratory: Chest Non Tender, Lungs Clear, No Accessory Muscle Use, No Respiratory Distress, Decreased Breath Sounds Cardiovascular: Regular Rate, Rhythm, No Edema, No Gallop, No JVD, No Murmur, Normal Peripheral Pulses Gastrointestinal: Normal Bowel Sounds, No Organomegaly, No Pulsatile Mass, Non Tender, Soft Back: Normal Inspection, No CVA Tenderness, No Vertebral Tenderness Extremity: Normal Capillary Refill, Normal Inspection, Normal Range of Motion (Left-sided hemiparesis), Non Tender, No Calf Tenderness, No Pedal Edema Neurologic/Psychiatric: Alert, Oriented x3, No Motor/Sensory Deficits, project manager industrial II- XII Norm as Tested, Abnormal Gait, Depressed Affect, Motor Weakness (Left weakness greater than right but generalized throughout) Skin: Normal Color, Warm/Dry Lymphatic: No Adenopathy Results/Procedures Lab Patient resulted labs reviewed. FIM Transfers Therapy Code Descriptions/Definitions Functional [place] Measure: 0=Not Assessed/NA 4=Minimal Assistance 1=Total Assistance 5=Supervision or Setup 2=Maximal Assistance 6=Modified [place] 3=Moderate Assistance 7=Complete IndependenceSCALE: Activities may be completed with or without assistive devices. 9-Wgiqjuvtyd-gczomea completes the activity by him/herself with no assistance from a helper. 5-Set-up or Clean-up Assistance-helper sets up or cleans up; patient completes activity. [place] assists only prior to or following the activity. 4-Supervision or Touching Assistance-helper provides verbal cues and/or touching/steadying and/or contact guard assistance as patient completes activity. Assistance may be provided throughout the activity or intermittently. 3-Partial/Moderate Assistance-helper does LESS THAN HALF the effort. [place] lifts, holds or supports trunk or limbs, but provides less than half the effort. 2-Substantial/Maximal Assistance-helper does MORE THAN HALF the effort. [place] lifts or holds trunk or limbs and provides more than half the effort. 6-Rjqotnjug-teqawr does ALL the effort. Patient does none of the effort to complete the activity. Or, the assistance of 2 or more helpers is required for the patient to complete the activity. If activity was not attempted, code reason: 7-Patient Refused. 9-Not Applicable-not attempted and the patient did not perform the activity before the current illness, exacerbation or injury. 10-Not Attempted due to Environmental Limitations-(lack of equipment, weather restraints, etc.). 88-Not Attempted due to Medical Conditions or Safety Concerns. Roll Left to Right (QC): 6 Sit to Lying (QC): 6 Sit to Stand (QC): 6 Chair/Dtf-gc-Mezvg Xfer(QC): 4 Car Transfer (QC): 3 Gait Training Does the Patient Walk?: Yes Walk 10 feet (QC): 4 Walk 50 ft with 2 Turns(QC): 4 Walk 150 ft (QC): 88 Walking 10ft/uneven surface-QC: 4 Gait Persons Needed: 1 Gait Assistive Device: Cane Single Point Wheelchair Training Does the Pt Use a Wheelchair?: No Wheel 50 ft with 2 turns (QC): 9 Wheel 150 ft (QC): 9 Stair Training #of Steps: 4 1 Step (curb) (QC): 4 4 Steps (QC): 4 12 Steps (QC): 88 Balance Picking up an Object (QC): 4 (CGA not using a reroller hand) ADL-Treatment Eating (QC): 5 Oral Hygiene (QC): 6 Shower/Bathe Self (QC): 4 Upper Body Dressing (QC): 3 (mod A) Lower Body Dressing (QC): 2 On/Off Footwear (QC): 2 Toileting Hygiene (QC): 3 Toilet Transfer (QC): 4 Assessment/Plan Assessment and Plan Assess & Plan/Chief Complaint Assessment: Severe debility and worsening weakness post Covid 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 placed on midodrine Previous stroke with left-sided weakness CAD previous stents Hypertension Hyperlipidemia Prostate cancer Carotid stenosis Urinary frequency Dehydration now resolved after IV fluids GERD Acute UTI coag negative staph started on Vanc Poor nutrition Plan: Supportive care IV fluids Bladder scan Aggressive rehab protocol Dr Valencia consult Vanc empirically 11/21/2021: Vancomycin Hep-Lock IV fluid 11/22/2021: Maintain vancomycin Supportive care (1) Debility (2) Recurrent syncope Status: Acute (3) Hypotension Status: Acute (4) Prostate cancer Status: Acute (5) Dehydration Status: Acute (6) History of cerebrovascular accident (7) Primary hypertension (8) Mixed hyperlipidemia (9) Orthostatic hypotension Status: Acute (10) Cerebral infarction due to unspecified occlusion or stenosis 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 GUILLERMO CABELLO DO Nov 22, 2021 06:19
[2021-11-22] MEDS: PANTOPRAZOLE 40 MG (PROTONIX) TAB PO SCH ×2 (06:30→17:17)
[2021-11-22 07:19] VITALS: BP 120/60
[2021-11-22] MEDS: CLOPIDOGREL 75 MG (PLAVIX) TABLET PO SCH (07:59)
[2021-11-22] MEDS: MIDODRINE 10 MG (PROAMATINE) TAB PO SCH ×3 (07:59→20:13)
[2021-11-22] MEDS: ASPIRIN E.C. 81 MG (ECOTRIN) TAB PO SCH (07:59)
[2021-11-22] MEDS: FAMOTIDINE 20 MG (PEPCID) TABLET PO SCH (07:59)
[2021-11-22] MEDS ORDERED: TROUGH ORDER-PHARMACY XX NR (09:00)
--- NOTE | 2021-11-22 09:30 | Progress Note - Urology ---
Progress Note-Urology Progress Notes/Assess & Plan Progress/Assessment & Plan STABLE Final Diagnosis CA PROSTATE AND RETENTION QING WAN MD Nov 22, 2021 09:30
[2021-11-22] MEDS: DOCUSATE SODIUM 100 MG (COLACE) CAP PO SCH ×2 (09:43→19:34)
[2021-11-22] MEDS: polyethylene glycoL POWDER 17 GM (MIRALAX) PACK PO SCH ×2 (09:44→19:34)
[2021-11-22] MEDS: SENNA W/DOCUSATE (SENOKOT S) TABLET PO SCH ×2 (09:46→19:34)
--- NOTE | 2021-11-22 09:48 | Physical Therapy Daily Note ---
PT Daily Note-Current Subjective Patient in bed pre tx, agrees to PT, voices no complaints of pain. Appearance Patient in bed post tx with nurse call, phone, tray, all needs met. Mental Status Patient Orientation: Person, Place, Situation Transfers SCALE: Activities may be completed with or without assistive devices. 4-Aiqqtmnjmb-socvltq completes the activity by him/herself with no assistance from a helper. 5-Set-up or Clean-up Assistance-helper sets up or cleans up; patient completes activity. [place] assists only prior to or following the activity. 4-Supervision or Touching Assistance-helper provides verbal cues and/or touching/steadying and/or contact guard assistance as patient completes activity. Assistance may be provided throughout the activity or intermittently. 3-Partial/Moderate Assistance-helper does LESS THAN HALF the effort. [place] lifts, holds or supports trunk or limbs, but provides less than half the effort. 2-Substantial/Maximal Assistance-helper does MORE THAN HALF the effort. [place] lifts or holds trunk or limbs and provides more than half the effort. 9-Hrarhjnsj-udlbzj does ALL the effort. Patient does none of the effort to complete the activity. Or, the assistance of 2 or more helpers is required for the patient to complete the activity. If activity was not attempted, code reason: 7-Patient Refused. 9-Not Applicable-not attempted and the patient did not perform the activity before the current illness, exacerbation or injury. 10-Not Attempted due to Environmental Limitations-(lack of equipment, weather restraints, etc.). 88-Not Attempted due to Medical Conditions or Safety Concerns. Roll Left & Right (QC): 4 Sit to Lying (QC): 4 Lying to Sitting/Side of Bed(Q: 4 Sit to Stand (QC): 4 Chair/Jts-yn-Ihhde Xfer(QC): 4 Toilet Transfer (QC): 4 Patient sits to the side of the bed with SBA, stands with CGA and ambulates into the restroom with CGA using SPC, sits on toilet, is able to push pants down and pull up without assist and wipe himself. Gait Training Distance: 120'x2 Walk 10 feet (QC): 4 Walk 50 ft with 2 Turns(QC): 4 Gait Persons Needed: 1 Gait Assistive Device: Cane Single Point slow ambulation, tends to drift to the left side, slightly unsteady but no LOB, very fatigued after ambulation Exercises Seated Therapy Exercises: Ankle pumps, Hip flexion Seated Reps: 20 LAQ alternating for 5 min NuStep Minutes: 15 NuStep Workload: 4 Treatments bed mobility and transfers, ambulation, toileting, functional strengthening Assessment Current Status: Fair Progress patient needs frequent rest breaks due to fatigue PT Short Term Goals Short Term Goals Time Frame: Nov 27, 2021 Roll Left & Right: 6 Sit to lyin Lying to sitting on side of be: 6 Sit to stand: 4 (SBA) Chair/cyv-va-srdxw transfer: 4 (SBA) Walk 10 feet: 4 (SBA) Walk 50 feet with two turns: 4 (SBA) PT Skilled Nursing Goals Assistance Representative Goals PT Skilled Nursing Goals Time Frame: Dec 11, 2021 Roll Left & Right (QC): 6 Sit to Lying (QC): 6 Lying-Sitting on Side/Bed(QC): 6 Sit to Stand (QC): 5 Chair/Ohi-oc-Wsyic Xfer(QC): 5 Toilet Transfer (QC): 5 Car Transfer (QC): 5 Does the Patient Walk: Yes Walk 10 feet (QC): 5 Walk 50ft with 2 Turns (QC): 5 Walk 150 ft (QC): 5 Walking 10ft on Uneven Surface: 5 1 Step (curb) (QC): 4 (SBA) 4 Steps (QC): 4 (SBA) 12 Steps (QC): 88 Picking up an Object (QC): 4 (SBA) Wheel 50 feet with 2 turns (QC: 9 Wheel 150 feet: 9 PT Plan Problem List Problem List: Activity Tolerance, Functional Strength, Safety, Balance, Gait, Transfer, Bed Mobility, ROM Treatment/Plan Treatment Plan: Continue Plan of Care Treatment Plan: Bed Mobility, Education, Functional Activity Jose Carlos, Functional Strength, Group Therapy, Gait, Safety, Therapeutic Exercise, Transfers Treatment Duration: Dec 11, 2021 Frequency: At least 5 of 7 days/Wk (IRF) Estimated Hrs Per Day: 1.5 hours per day Patient and/or Family Agrees t: Yes Safety Risks/Education Patient Education: Gait Training, Transfer Techniques, Correct Positioning, Safety Issues Teaching Recipient: Patient Teaching Methods: Demonstration, Discussion Response to Teaching: Reinforcement Needed Time/GCodes Time In: 0900 Time Out: 1000 Total Billed Treatment Time: 60 Total Billed Treatment 1 visit EX 30' FA 30' FELIZ GRIMM PT Nov 22, 2021 09:48
[2021-11-22] MEDS: VANCOMYCIN 1 GM/NS 250 ML IVPB IV SCH ×4 (10:32→21:25)
--- NOTE | 2021-11-22 11:49 | Occupational Ther Daily Note ---
OT Current Status-Daily Note Subjective Pt alert, lying in bed. Pt agrees to therapy. No c/o pain at this time. Pt began to feel dizzy when sitting up, BP 96/57, reported to nrsg. Pt laid down 120/56. Nrsg aware of BP. Mental Status/Objective Patient Orientation: Person, Place, Time, Situation Attachments: IV ADL-Treatment Pt declines shower and changing clothing. Pt able to don R sock using figure 4 tech and utilizing one handed technique with CGA for sitting balance. Pt has difficult time crossing L over R LE to don L sock. Educated pt on using sock aide and one handed technique. Pt will need more practice to become proficient. CGA for toilet transfer and CGA for toileting. After session, pt lying in bed with call light/phone in reach. Therapy Code Descriptions/Definitions Functional [place] Measure: 0=Not Assessed/NA 4=Minimal Assistance 1=Total Assistance 5=Supervision or Setup 2=Maximal Assistance 6=Modified [place] 3=Moderate Assistance 7=Complete IndependenceSCALE: Activities may be completed with or without assistive devices. 1-Mscqsghdfo-snvceqz completes the activity by him/herself with no assistance from a helper. 5-Set-up or Clean-up Assistance-helper sets up or cleans up; patient completes activity. [place] assists only prior to or following the activity. 4-Supervision or Touching Assistance-helper provides verbal cues and/or touching/steadying and/or contact guard assistance as patient completes activity. Assistance may be provided throughout the activity or intermittently. 3-Partial/Moderate Assistance-helper does LESS THAN HALF the effort. [place] lifts, holds or supports trunk or limbs, but provides less than half the effort. 2-Substantial/Maximal Assistance-helper does MORE THAN HALF the effort. [place] lifts or holds trunk or limbs and provides more than half the effort. 2-Wxslrydwg-qltule does ALL the effort. Patient does none of the effort to complete the activity. Or, the assistance of 2 or more helpers is required for the patient to complete the activity. If activity was not attempted, code reason: 7-Patient Refused. 9-Not Applicable-not attempted and the patient did not perform the activity before the current illness, exacerbation or injury. 10-Not Attempted due to Environmental Limitations-(lack of equipment, weather restraints, etc.). 88-Not Attempted due to Medical Conditions or Safety Concerns. On/Off Footwear: 3 (mod A) Toileting Hygiene (QC): 4 Toilet Transfer (QC): 4 Other Treatment Due to BP issues, pt required multiple recovery breaks from dizziness and to allow BP to regulate. Pt laid down in bed to assist with increasing BP. While in supine pt used dowel allegra, pt able to to use B UE to lift dowel allegra to ~90* 2 sets 10 reps. Pt then was able to take out 12 resistive pegs from board with L UE. Pt placed 12 pegs in box with L UE by crossing midline to continuous pickling line pickler helper and deposit on L side of body. Pt then sat EOB to complete wt bearing with L UE and work on dynamic sitting to increase ROM and decrease tightness of L UE. OT Short Term Goals Short Term Goals Time Frame: Nov 28, 2021 Toileting hygiene: 3 Upper body dressin OT [place]ter Goals Half-Way Goals Time Frame: Dec 14, 2021 Eating (QC): 5 Oral Hygiene (QC): 5 Toileting Hygiene (QC): 4 Shower/Bathe Self (QC): 4 Upper Body Dressing (QC): 4 Lower Body Dressing (QC): 4 On/Off Footwear (QC): 4 Additional Goals: 1-Demonstrate ADL Tasks, 2-Verbalize Understanding, 3- ImproveStrength/Jose Carlos 1=Demonstrate adherence to instructed precautions during ADL tasks. 2=Patient will verbalize/demonstrate understanding of assistive devices/modific ations for ADL. 3=Patient will improve strength/tolerance for activity to enable patient to perform ADL's. OT Education/Plan Problem List/Assessment Assessment: Decreased Activ Tolerance, Decreased UE Strength, Impaired Self- Care Skills, Restricted Funct UE ROM, Visual-Perceptual Deficit Discharge Recommendations Plan/Recommendations: Continue POC Treatment Plan/Plan of Care Patient would benefit from OT for education, treatment and training to promote independence in ADL's, mobility, safety and/or upper extremity function for ADL's. Plan of Care: ADL Retraining, Functional Mobility, UE Funct Exercise/Act, UE Neuromus Re-Ed/Coord Treatment Duration: Dec 14, 2021 Frequency: At least 5 of 7 days/Wk (IRF) Estimated Hrs Per Day: 1.5 hours per day Agreement: Yes Rehab Potential: Fair Time/GCodes Start Time: 10:30 Stop Time: 12:00 Total Time Billed (hr/min): 90 Billed Treatment Time 1 visit-ADL 3 (45 min) EX 2 (30 min) NM 1 (15 min) AAKASH HODGES Nov 22, 2021 11:49
--- NOTE | 2021-11-22 13:29 | Physical Therapy Daily Note ---
PT Daily Note-Current Subjective Patient in bed pre tx, agrees to PT, has no complaints of pain. Appearance Patient in bed post tx with nurse call, phone, tray, all needs met. Mental Status Patient Orientation: Person, Place, Situation Transfers SCALE: Activities may be completed with or without assistive devices. 2-Cqvnfsqmac-lboirlv completes the activity by him/herself with no assistance from a helper. 5-Set-up or Clean-up Assistance-helper sets up or cleans up; patient completes activity. [place] assists only prior to or following the activity. 4-Supervision or Touching Assistance-helper provides verbal cues and/or touching/steadying and/or contact guard assistance as patient completes activity. Assistance may be provided throughout the activity or intermittently. 3-Partial/Moderate Assistance-helper does LESS THAN HALF the effort. [place] lifts, holds or supports trunk or limbs, but provides less than half the effort. 2-Substantial/Maximal Assistance-helper does MORE THAN HALF the effort. [place] lifts or holds trunk or limbs and provides more than half the effort. 9-Jmmtqfjcs-souhza does ALL the effort. Patient does none of the effort to complete the activity. Or, the assistance of 2 or more helpers is required for the patient to complete the activity. If activity was not attempted, code reason: 7-Patient Refused. 9-Not Applicable-not attempted and the patient did not perform the activity before the current illness, exacerbation or injury. 10-Not Attempted due to Environmental Limitations-(lack of equipment, weather restraints, etc.). 88-Not Attempted due to Medical Conditions or Safety Concerns. Roll Left & Right (QC): 6 Sit to Lying (QC): 4 Lying to Sitting/Side of Bed(Q: 4 Sit to Stand (QC): 4 Chair/Zva-ho-Ulvdu Xfer(QC): 4 Gait Training Distance: 120'x2 Walk 10 feet (QC): 4 Walk 50 ft with 2 Turns(QC): 4 Gait Persons Needed: 1 Gait Assistive Device: Cane Single Point CGA, tends to drift a little to the left, slow ambulation Exercises Seated Therapy Exercises: Ankle pumps, Shoulder Abd, Hip abd/add (with ball and RTB) Seated Reps: 20 Standing: Heel/toe raises, Mini squats, Step-ups Standing Reps: 15 Treatments bed mobility and transfers, ambulation, LE strengthening Assessment Current Status: Fair Progress patient needed several rest breaks due to fatigue PT Short Term Goals Short Term Goals Time Frame: Nov 27, 2021 Roll Left & Right: 6 Sit to lyin Lying to sitting on side of be: 6 Sit to stand: 4 (SBA) Chair/fxa-ja-jwqrs transfer: 4 (SBA) Walk 10 feet: 4 (SBA) Walk 50 feet with two turns: 4 (SBA) PT [place] Upper Goals [place] Goals PT Senior Living Goals Time Frame: Dec 11, 2021 Roll Left & Right (QC): 6 Sit to Lying (QC): 6 Lying-Sitting on Side/Bed(QC): 6 Sit to Stand (QC): 5 Chair/Qod-pw-[place] Xfer(QC): 5 Toilet Transfer (QC): 5 Car Transfer (QC): 5 Does the Patient Walk: Yes Walk 10 feet (QC): 5 Walk 50ft with 2 Turns (QC): 5 Walk 150 ft (QC): 5 Walking 10ft on Uneven Surface: 5 1 Step (curb) (QC): 4 (SBA) 4 Steps (QC): 4 (SBA) 12 Steps (QC): 88 Picking up an Object (QC): 4 (SBA) Wheel 50 feet with 2 turns (QC: 9 Wheel 150 feet: 9 PT Plan Problem List Problem List: Activity Tolerance, Functional Strength, Safety, Balance, Gait, Transfer, Bed Mobility, ROM Treatment/Plan Treatment Plan: Continue Plan of Care Treatment Plan: Bed Mobility, Education, Functional Activity Jose Carlos, Functional Strength, Group Therapy, Gait, Safety, Therapeutic Exercise, Transfers Treatment Duration: Dec 11, 2021 Frequency: At least 5 of 7 days/Wk (IRF) Estimated Hrs Per Day: 1.5 hours per day Patient and/or Family Agrees t: Yes Safety Risks/Education Patient Education: Gait Training, Transfer Techniques, Correct Positioning, Safety Issues Teaching Recipient: Patient Teaching Methods: Demonstration, Discussion Response to Teaching: Reinforcement Needed Time/GCodes Time In: 1300 Time Out: 1330 Total Billed Treatment Time: 30 Total Billed Treatment 1 visit GT 10', EX 20' FELIZ GRIMM PT Nov 22, 2021 13:29
[2021-11-22] MEDS: FLUDROCORTISONE 0.1 MG (FLORINEF) TAB PO SCH (14:45)
--- NOTE | 2021-11-22 15:48 | Behavioral Health Consult ---
Consult- Consult Date Seen by Provider: Nov 22, 2021 Time Seen by Provider: 13:50 CPT Code: 12832 Psychodiagnostic Examination, 42566 +Interactive Complexity, 1 unit(s) Start Time: 1350 Stop Time: 1435 Chief Complaint: depression Referral: Mo Allen is a 81-year-old, , male referred by Dr. Anabel Garcia for a clinical diagnostic assessment. Information for this evaluation was gathered from self-report and medical records. Therapist talked with the nurse prior and after meeting with Ricardo. Presenting Problem: The presenting clinical problem is depression. He reported he is feeling better today and has been able to eat. He stated he has been struggling to sleep between urinary urgency and completing tasks for his treatment. He reported some frustrations with regaining his strength and his left-hand usage. He stated he has learned not to batres things and that his improvements will come in time. 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 He stated he can still play the [employer]. He denied any suicidal thoughts. He initially denied depression, but then stated he probably has some with all his medical issues. He reported he does not want to be on psychotropic medication, because he saw problems it caused for his mother and yxdzzw-hy-mbw. He talked about having prostate cancer and being okay with treatment as long as it is not chemotherapy. Overall symptoms observed or reported requiring current level of care include anergia, appetite disturbance, medical problems, and sleep disturbance (onset delay/easily awakened). Observations/Mental Status: Mo was lying in his hospital bed with two visitors when therapist arrived. His visitors left while therapist was there. Overall appearance was unremarkable clinically. Mo appeared to be an adequate historian. Observed gait and gross motor movements indicated limited movements. In regards to pain, no problems were reported. Sang general approach to the evaluation was cooperative. Orientation was intact for person, place, time, and situation. Mo evidenced good understanding of the reason for the appointment. Sang in-session behavior was cooperative. The predominant mood was generally euthymic with affect appropriate to expressed concerns and presenting problem. Immediate attention and concentration was grossly intact. Memory functioning appeared to be intact. Level of intellectual functioning compared to same age peers was estimated to be in the average range. Thought processes were found to be generally logical, coherent and goal directed. Thought content appeared normal. There was no report or evidence of hallucinations or delusions. Psychomotor functioning was within normal limits. Tone of voice was normal and controlled. Expressive speech was marked by fluent speech and language. Eye contact was fair. Insight was average. Overall, style of interacting during the appointment was appropriate and motivated. Current/Previous Mental Health Treatment: Past psychiatric history was reported as none. History of self or other harm: denied. Medical History: Medical conditions were reported as prostate cancer, stroke (April 2021), and blood pressure issues. Current medications: none reported. Drug allergies: cephalexin, influenza virus vaccine, and aloe vera. Current physician is Dr. Garcia. Educational and Vocational Histories: Mo reported he retired in 1993. He stated he worked for over 30 years for [employer] in the [employer]. 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 Legal History: Legal history was reported as none. Family and Social Histories: Mo reported he lives with his in [place], [place]. He stated his sister lives next door and is helpful. He reported he has two sons that live in [place] and his daughter lives in [place]. He reported for 22 years after he retired, he lived in [facility]. He stated he moved back here because of his health. Ability to care for oneself: is not limited in any way. Strengths/Weaknesses: Strengths/Resources: insightful and supportive family Liabilities/Barriers: health problems Summary of Assessment Information/Prognosis: Mo is a 81-year-old male with a recent diagnosis of prostate cancer and a stroke in April 2021. There are some concerns for depression. He agreed that he has felt sad at times while dealing with his health issues. He denied any need for psychotherapy or psychotropic medication. He does seem to have some mild depression that fluctuates related to his health issues. However, he does seem to have a positive attitude toward his recovering and treatment. He was pleasant to talk to and seemed to be in a good mood. 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 He does not appear to need any psychological follow up at this point, however if that changes feel free to contact Behavioral Health. 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
[2021-11-22] MEDS: TAMSULOSIN 0.4 MG (FLOMAX) CAP PO SCH (17:17)
[2021-11-22 19:46] VITALS: BP 133/70
[2021-11-22] MEDS: ENOXAPARIN 40 MG/0.4 ML (LOVENOX) SYR SC SCH (20:14)
[2021-11-23] MEDS: PANTOPRAZOLE 40 MG (PROTONIX) TAB PO SCH ×2 (05:41→16:48)
--- NOTE | 2021-11-23 06:22 | PM&R Progress Note ---
Subjective HPI/CC On Admission Date Seen by Provider: Nov 23, 2021 Time Seen by Provider: 10:30 Subjective/Events-last exam 11/23/2021: Much improved status Urinary frequency is still present Flomax twice a day Eating better Walking better Motivation good 11/22/2021: Patient much improved Urology change Flomax to twice a day Minimal post void residual Patient feels like he is stronger No falls Reviewed urine culture 11/21/2021: Patient improved We will Hep-Lock IV fluid Patient will focus on dietary consumption Urinary frequency will be addressed by urology No pain is reported Weakness is noted Checked meds and labs Review of Systems General: Fatigue, Malaise Objective Exam Vital Signs Vital Signs Date Time Temp Pulse Resp B/P (MAP) Pulse Ox O2 Delivery O2 Flow Rate FiO2 11/23/21 20:25 91 Room Air 11/23/21 19:50 36.4 80 18 135/65 (88) Capillary Refill : General Appearance: WD/WN, Anxious, Chronically ill, Thin, Other (Frail) HEENT: PERRL/EOMI, Normal ENT Inspection, Pharynx Normal Neck: Full Range of Motion, Normal Inspection, Non Tender, Supple, Carotid Bruit Respiratory: Chest Non Tender, Lungs Clear, No Accessory Muscle Use, No Respiratory Distress, Decreased Breath Sounds Cardiovascular: Regular Rate, Rhythm, No Edema, No Gallop, No JVD, No Murmur, Normal Peripheral Pulses Gastrointestinal: Normal Bowel Sounds, No Organomegaly, No Pulsatile Mass, Non Tender, Soft Back: Normal Inspection, No CVA Tenderness, No Vertebral Tenderness Extremity: Normal Capillary Refill, Normal Inspection, Normal Range of Motion (Left-sided hemiparesis), Non Tender, No Calf Tenderness, No Pedal Edema Neurologic/Psychiatric: Alert, Oriented x3, No Motor/Sensory Deficits, imagery intelligence II- XII Norm as Tested, Abnormal Gait, Depressed Affect, Motor Weakness (Left weakness greater than right but generalized throughout) Skin: Normal Color, Warm/Dry Lymphatic: No Adenopathy Results/Procedures Lab Patient resulted labs reviewed. FIM Transfers Therapy Code Descriptions/Definitions Functional [place] Measure: 0=Not Assessed/NA 4=Minimal Assistance 1=Total Assistance 5=Supervision or Setup 2=Maximal Assistance 6=Modified [place] 3=Moderate Assistance 7=Complete IndependenceSCALE: Activities may be completed with or without assistive devices. 5-Wxehaknakh-bkrzmct completes the activity by him/herself with no assistance from a helper. 5-Set-up or Clean-up Assistance-helper sets up or cleans up; patient completes activity. [place] assists only prior to or following the activity. 4-Supervision or Touching Assistance-helper provides verbal cues and/or touching/steadying and/or contact guard assistance as patient completes activity. Assistance may be provided throughout the activity or intermittently. 3-Partial/Moderate Assistance-helper does LESS THAN HALF the effort. [place] lifts, holds or supports trunk or limbs, but provides less than half the effort. 2-Substantial/Maximal Assistance-helper does MORE THAN HALF the effort. [place] lifts or holds trunk or limbs and provides more than half the effort. 7-Orxeysvwh-xdylti does ALL the effort. Patient does none of the effort to complete the activity. Or, the assistance of 2 or more helpers is required for the patient to complete the activity. If activity was not attempted, code reason: 7-Patient Refused. 9-Not Applicable-not attempted and the patient did not perform the activity bef ore the current illness, exacerbation or injury. 10-Not Attempted due to Environmental Limitations-(lack of equipment, weather r estraints, etc.). 88-Not Attempted due to Medical Conditions or Safety Concerns. Roll Left to Right (QC): 6 Sit to Lying (QC): 4 Sit to Stand (QC): 4 Chair/Xwg-oy-Seenn Xfer(QC): 4 Car Transfer (QC): 3 Gait Training Does the Patient Walk?: Yes Distance: 120'x2 Walk 10 feet (QC): 4 Walk 50 ft with 2 Turns(QC): 4 Walk 150 ft (QC): 88 Walking 10ft/uneven surface-QC: 4 Gait Persons Needed: 1 Gait Assistive Device: Cane Single Point Wheelchair Training Does the Pt Use a Wheelchair?: No Wheel 50 ft with 2 turns (QC): 9 Wheel 150 ft (QC): 9 Stair Training #of Steps: 4 1 Step (curb) (QC): 4 4 Steps (QC): 4 12 Steps (QC): 88 Balance Picking up an Object (QC): 4 (CGA not using a program coordinator for residence life) ADL-Treatment Eating (QC): 5 Oral Hygiene (QC): 6 Shower/Bathe Self (QC): 4 Upper Body Dressing (QC): 3 (mod A) Lower Body Dressing (QC): 2 On/Off Footwear (QC): 3 (mod A) Toileting Hygiene (QC): 4 Toilet Transfer (QC): 4 Assessment/Plan Assessment and Plan Assess & Plan/Chief Complaint Assessment: Severe debility and worsening weakness post Covid 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 placed on midodrine Previous stroke with left-sided weakness CAD previous stents Hypertension Hyperlipidemia Prostate cancer Carotid stenosis Urinary frequency Dehydration now resolved after IV fluids GERD Acute UTI coag negative staph started on Vanc Poor nutrition Plan: Supportive care IV fluids Bladder scan Aggressive rehab protocol Dr Valencia consult Vanc empirically 11/21/2021: Vancomycin Hep-Lock IV fluid 11/22/2021: Maintain vancomycin Supportive care 11/23/2021: Vancomycin Supportive care (1) Debility (2) Recurrent syncope Status: Acute (3) Hypotension Status: Acute (4) Prostate cancer Status: Acute (5) Dehydration Status: Acute (6) History of cerebrovascular accident (7) Primary hypertension (8) Mixed hyperlipidemia (9) Orthostatic hypotension Status: Acute (10) Cerebral infarction due to unspecified occlusion or stenosis 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 GUILLERMO CABELLO DO Nov 23, 2021 06:22
[2021-11-23 07:25] VITALS: BP 118/56
[2021-11-23] MEDS: CLOPIDOGREL 75 MG (PLAVIX) TABLET PO SCH (08:02)
[2021-11-23] MEDS: ASPIRIN E.C. 81 MG (ECOTRIN) TAB PO SCH (08:02)
[2021-11-23] MEDS: FAMOTIDINE 20 MG (PEPCID) TABLET PO SCH (08:03)
[2021-11-23] MEDS: FLUDROCORTISONE 0.1 MG (FLORINEF) TAB PO SCH (08:03)
[2021-11-23] MEDS: DOCUSATE SODIUM 100 MG (COLACE) CAP PO SCH ×2 (08:03→20:25)
[2021-11-23] MEDS: MIDODRINE 10 MG (PROAMATINE) TAB PO SCH ×3 (08:03→20:20)
[2021-11-23] MEDS: polyethylene glycoL POWDER 17 GM (MIRALAX) PACK PO SCH ×2 (09:00→20:25)
[2021-11-23] MEDS: SENNA W/DOCUSATE (SENOKOT S) TABLET PO SCH ×2 (09:00→20:25)
--- NOTE | 2021-11-23 09:28 | Progress Note - Urology ---
Progress Note-Urology Progress Notes/Assess & Plan Progress/Assessment & Plan CONTINUES WELL CHACON. WE WILL SEE PRN. FOLLOW AT OFFICE SCHEDULED Final Diagnosis CAP, RETENTION QING WAN MD Nov 23, 2021 09:28
--- NOTE | 2021-11-23 09:51 | Physical Therapy Daily Note ---
PT Daily Note-Current Subjective Patient in bed pre tx, agrees to PT, has minor left shoulder pain Appearance Patient in bed post tx, with nurse call, phone, tray, all needs met. Mental Status Patient Orientation: Person, Place, Situation Transfers SCALE: Activities may be completed with or without assistive devices. 6-Lzbosxsidl-vgvzcrt completes the activity by him/herself with no assistance from a helper. 5-Set-up or Clean-up Assistance-helper sets up or cleans up; patient completes activity. [place] assists only prior to or following the activity. 4-Supervision or Touching Assistance-helper provides verbal cues and/or touching/steadying and/or contact guard assistance as patient completes activity. Assistance may be provided throughout the activity or intermittently. 3-Partial/Moderate Assistance-helper does LESS THAN HALF the effort. [place] lifts, holds or supports trunk or limbs, but provides less than half the effort. 2-Substantial/Maximal Assistance-helper does MORE THAN HALF the effort. [place] lifts or holds trunk or limbs and provides more than half the effort. 3-Qzdylkngq-xwvlew does ALL the effort. Patient does none of the effort to complete the activity. Or, the assistance of 2 or more helpers is required for the patient to complete the activity. If activity was not attempted, code reason: 7-Patient Refused. 9-Not Applicable-not attempted and the patient did not perform the activity before the current illness, exacerbation or injury. 10-Not Attempted due to Environmental Limitations-(lack of equipment, weather restraints, etc.). 88-Not Attempted due to Medical Conditions or Safety Concerns. Roll Left & Right (QC): 6 Sit to Lying (QC): 6 Lying to Sitting/Side of Bed(Q: 6 Sit to Stand (QC): 4 Chair/Icb-tx-Gfdrj Xfer(QC): 4 Gait Training Distance: 150', 100'x2, 120' Walk 10 feet (QC): 4 Walk 50 ft with 2 Turns(QC): 4 Walk 150 ft (QC): 4 Gait Persons Needed: 1 Gait Assistive Device: Cane Single Point Patient tends to drift to the left during ambulation, ambulates slowly, slight unsteady especially when turning Exercises Seated Therapy Exercises: Ankle pumps, Long arc quads, Hip flexion, Hip abd/add (with ball and RTB) Seated Reps: 20 NuStep Minutes: 15 NuStep Workload: 4 Treatments bed mobility and transfers, ambulation, functional strengthening Assessment Current Status: Fair Progress improving endurance but patient is very tired, says he has not been sleeping well PT Short Term Goals Short Term Goals Time Frame: Nov 27, 2021 Roll Left & Right: 6 Sit to lyin Lying to sitting on side of be: 6 Sit to stand: 4 (SBA) Chair/oum-ty-ztrio transfer: 4 (SBA) Walk 10 feet: 4 (SBA) Walk 50 feet with two turns: 4 (SBA) PT Stone [employer] Operator Goals [place] Operator Goals PT Fdc Goals Time Frame: Dec 11, 2021 Roll Left & Right (QC): 6 Sit to Lying (QC): 6 Lying-Sitting on Side/Bed(QC): 6 Sit to Stand (QC): 5 Chair/Fhl-oz-Wiitx Xfer(QC): 5 Toilet Transfer (QC): 5 Car Transfer (QC): 5 Does the Patient Walk: Yes Walk 10 feet (QC): 5 Walk 50ft with 2 Turns (QC): 5 Walk 150 ft (QC): 5 Walking 10ft on Uneven Surface: 5 1 Step (curb) (QC): 4 (SBA) 4 Steps (QC): 4 (SBA) 12 Steps (QC): 88 Picking up an Object (QC): 4 (SBA) Wheel 50 feet with 2 turns (QC: 9 Wheel 150 feet: 9 PT Plan Problem List Problem List: Activity Tolerance, Functional Strength, Safety, Balance, Gait, Transfer, Bed Mobility, ROM Treatment/Plan Treatment Plan: Continue Plan of Care Treatment Plan: Bed Mobility, Education, Functional Activity Jose Carlos, Functional Strength, Group Therapy, Gait, Safety, Therapeutic Exercise, Transfers Treatment Duration: Dec 11, 2021 Frequency: At least 5 of 7 days/Wk (IRF) Estimated Hrs Per Day: 1.5 hours per day Patient and/or Family Agrees t: Yes Safety Risks/Education Patient Education: Gait Training, Transfer Techniques, Correct Positioning, Safety Issues Teaching Recipient: Patient Teaching Methods: Demonstration, Discussion Response to Teaching: Reinforcement Needed Time/GCodes Time In: 0900 Time Out: 1000 Total Billed Treatment Time: 60 Total Billed Treatment 1 visit EX 30' GT 30' FELIZ GRIMM PT Nov 23, 2021 09:51
[2021-11-23] MEDS: VANCOMYCIN 1 GM/NS 250 ML IVPB IV SCH ×4 (10:22→22:21)
--- NOTE | 2021-11-23 11:22 | Occupational Ther Daily Note ---
OT Current Status-Daily Note Subjective Pt alert, lying in bed. Pt c/o fatigue from not sleeping at night. Pt agrees to therapy. Mental Status/Objective Patient Orientation: Person, Place, Time, Situation Attachments: IV ADL-Treatment Pt declines shower today, agrees to shower tomorrow (11/24/21). Sitting at sink, pt is independent with oral care. Declines changing clothing at this time. SBA for transfer to toilet. SBA for clothing manipulation and hygiene. Therapy Code Descriptions/Definitions Functional [place] Measure: 0=Not Assessed/NA 4=Minimal Assistance 1=Total Assistance 5=Supervision or Setup 2=Maximal Assistance 6=Modified [place] 3=Moderate Assistance 7=Complete IndependenceSCALE: Activities may be completed with or without assistive devices. 1-Swovyhktld-tdigapp completes the activity by him/herself with no assistance from a helper. 5-Set-up or Clean-up Assistance-helper sets up or cleans up; patient completes activity. [place] assists only prior to or following the activity. 4-Supervision or Touching Assistance-helper provides verbal cues and/or touching/steadying and/or contact guard assistance as patient completes activity. Assistance may be provided throughout the activity or intermittently. 3-Partial/Moderate Assistance-helper does LESS THAN HALF the effort. [place] lifts, holds or supports trunk or limbs, but provides less than half the effort. 2-Substantial/Maximal Assistance-helper does MORE THAN HALF the effort. [place] lifts or holds trunk or limbs and provides more than half the effort. 7-Yzxrvxrbq-jztzzo does ALL the effort. Patient does none of the effort to complete the activity. Or, the assistance of 2 or more helpers is required for the patient to complete the activity. If activity was not attempted, code reason: 7-Patient Refused. 9-Not Applicable-not attempted and the patient did not perform the activity before the current illness, exacerbation or injury. 10-Not Attempted due to Environmental Limitations-(lack of equipment, weather restraints, etc.). 88-Not Attempted due to Medical Conditions or Safety Concerns. Other Treatment Massage and stretch to L UE to increase AROM and decrease tightness. Pt able to complete 3 dowel allegra exercises, 3 sets 10 reps, horizontal shldr abd/add; shldr flex, chest press. Pt able to complete ROM with dowel allegra though not WFL. Pt completed wt bearing with L UE on EOB 10x's holding position 5 sec. Pt takes lengthy recovery breaks between each exercise. Pt has a tendency to batres through tasks and not take time to finesse and problem solve through task. After session, pt lying in bed with call light/phone in reach. All needs met in room. OT Short Term Goals Short Term Goals Time Frame: Nov 28, 2021 Toileting hygiene: 3 Upper body dressin OT Corpsman Goals Usp Goals Time Frame: Dec 14, 2021 Eating (QC): 5 Oral Hygiene (QC): 5 Toileting Hygiene (QC): 4 Shower/Bathe Self (QC): 4 Upper Body Dressing (QC): 4 Lower Body Dressing (QC): 4 On/Off Footwear (QC): 4 Additional Goals: 1-Demonstrate ADL Tasks, 2-Verbalize Understanding, 3- ImproveStrength/Jose Carlos 1=Demonstrate adherence to instructed precautions during ADL tasks. 2=Patient will verbalize/demonstrate understanding of assistive devices/modifications for ADL. 3=Patient will improve strength/tolerance for activity to enable patient to perform ADL's. OT Education/Plan Problem List/Assessment Assessment: Decreased Activ Tolerance, Decreased UE Strength, Impaired Self- Care Skills Discharge Recommendations Plan/Recommendations: Continue POC Treatment Plan/Plan of Care Patient would benefit from OT for education, treatment and training to promote independence in ADL's, mobility, safety and/or upper extremity function for ADL's. Plan of Care: ADL Retraining, Functional Mobility, UE Funct Exercise/Act, UE Neuromus Re-Ed/Coord Treatment Duration: Dec 14, 2021 Frequency: At least 5 of 7 days/Wk (IRF) Estimated Hrs Per Day: 1.5 hours per day Agreement: Yes Rehab Potential: Fair Time/GCodes Start Time: 10:00 Stop Time: 11:30 Total Time Billed (hr/min): 90 Billed Treatment Time 1 visit-ADL 3 (45 min) NM 3 (45 min) AAKASH HODGES Nov 23, 2021 11:22
--- NOTE | 2021-11-23 13:45 | Physical Therapy Daily Note ---
PT Daily Note-Current Subjective Pt. agrees to Rx but states he is so tired from the morning Rx and is willing to only do exercises in bed. Pain Location: No Pain Reported Mental Status Patient Orientation: Normal For Age Transfers SCALE: Activities may be completed with or without assistive devices. 4-Stuvhpywfs-vhgkrhq completes the activity by him/herself with no assistance from a helper. 5-Set-up or Clean-up Assistance-helper sets up or cleans up; patient completes activity. [place] assists only prior to or following the activity. 4-Supervision or Touching Assistance-helper provides verbal cues and/or t ouching/steadying and/or contact guard assistance as patient completes activity. Assistance may be provided throughout the activity or intermittently. 3-Partial/Moderate Assistance-helper does LESS THAN HALF the effort. [place] lifts, holds or supports trunk or limbs, but provides less than half the effort. 2-Substantial/Maximal Assistance-helper does MORE THAN HALF the effort. [place] lifts or holds trunk or limbs and provides more than half the effort. 4-Ilmqswdhd-menlrf does ALL the effort. Patient does none of the effort to complete the activity. Or, the assistance of 2 or more helpers is required for the patient to complete the activity. If activity was not attempted, code reason: 7-Patient Refused. 9-Not Applicable-not attempted and the patient did not perform the activity before the current illness, exacerbation or injury. 10-Not Attempted due to Environmental Limitations-(lack of equipment, weather restraints, etc.). 88-Not Attempted due to Medical Conditions or Safety Concerns. scoots self up in bed indep with bed flat Exercises Supine Ex: Bridging, Ankle pumps, Quad Set, Rolling, Heel Slides, Scooting, Straight leg raise, Hip abd/add Supine Reps: 15 Assessment Current Status: Good Progress PT Short Term Goals Short Term Goals Time Frame: Nov 27, 2021 Roll Left & Right: 6 Sit to lyin Lying to sitting on side of be: 6 Sit to stand: 4 (SBA) Chair/jhk-uc-esgml transfer: 4 (SBA) Walk 10 feet: 4 (SBA) Walk 50 feet with two turns: 4 (SBA) PT Coordinator Of Library Services Goals Coordinator Of Library Services Goals PT Coordinator Of Library Services Goals Time Frame: Dec 11, 2021 Roll Left & Right (QC): 6 Sit to Lying (QC): 6 Lying-Sitting on Side/Bed(QC): 6 Sit to Stand (QC): 5 Chair/Thd-lw-Goldd Xfer(QC): 5 Toilet Transfer (QC): 5 Car Transfer (QC): 5 Does the Patient Walk: Yes Walk 10 feet (QC): 5 Walk 50ft with 2 Turns (QC): 5 Walk 150 ft (QC): 5 Walking 10ft on Uneven Surface: 5 1 Step (curb) (QC): 4 (SBA) 4 Steps (QC): 4 (SBA) 12 Steps (QC): 88 Picking up an Object (QC): 4 (SBA) Wheel 50 feet with 2 turns (QC: 9 Wheel 150 feet: 9 PT Plan Treatment/Plan Treatment Plan: Continue Plan of Care Treatment Plan: Bed Mobility, Education, Functional Activity Jose Carlos, Functional Strength, Group Therapy, Gait, Safety, Therapeutic Exercise, Transfers Treatment Duration: Dec 11, 2021 Frequency: At least 5 of 7 days/Wk (IRF) Estimated Hrs Per Day: 1.5 hours per day Patient and/or Family Agrees t: Yes Safety Risks/Education Patient Education: Correct Positioning Time/GCodes Time In: 1300 Time Out: 1330 Total Billed Treatment Time: 30 Total Billed Treatment 1,EX30m MIKE MCKNIGHT PTA Nov 23, 2021 13:45
[2021-11-23] MEDS: TAMSULOSIN 0.4 MG (FLOMAX) CAP PO SCH (16:48)
[2021-11-23 19:50] VITALS: BP 135/65
[2021-11-23] MEDS: ENOXAPARIN 40 MG/0.4 ML (LOVENOX) SYR SC SCH (20:18)
[2021-11-23] MEDS ORDERED: TROUGH ORDER-PHARMACY XX NR (21:00)
[2021-11-23] MEDS: MELATONIN 3 MG TABLET PO PRN (22:06)
[2021-11-24] MEDS ORDERED: VANCOMYCIN INJECTION 1,000 MG in NS (IVPB) 250 ML IV SCH (05:30)
[2021-11-24] MEDS ORDERED: VANCOMYCIN INJECTION 0.1 MG in NS (IVPB) 250 ML IV SCH (05:30)
--- NOTE | 2021-11-24 06:00 | PM&R Progress Note ---
Subjective HPI/CC On Admission Date Seen by Provider: Nov 24, 2021 Time Seen by Provider: 11:30 Subjective/Events-last exam 11/24/2021: Much improved Nocturia still present disturbing sleep Flomax twice a day tolerated Eating better Feels like he is making progress 11/23/2021: Much improved status Urinary frequency is still present Flomax twice a day Eating better Walking better Motivation good 11/22/2021: Patient much improved Urology change Flomax to twice a day Minimal post void residual Patient feels like he is stronger No falls Reviewed urine culture 11/21/2021: Patient improved We will Hep-Lock IV fluid Patient will focus on dietary consumption Urinary frequency will be addressed by urology No pain is reported Weakness is noted Checked meds and labs Review of Systems General: Fatigue, Malaise Objective Exam Vital Signs Vital Signs Date Time Temp Pulse Resp B/P (MAP) Pulse Ox O2 Delivery O2 Flow Rate FiO2 11/24/21 20:53 93 Room Air 11/24/21 19:59 36.6 84 16 133/74 (93) Capillary Refill : General Appearance: WD/WN, Anxious, Chronically ill, Thin, Other (Frail) HEENT: PERRL/EOMI, Normal ENT Inspection, Pharynx Normal Neck: Full Range of Motion, Normal Inspection, Non Tender, Supple, Carotid Bruit Respiratory: Chest Non Tender, Lungs Clear, No Accessory Muscle Use, No Respiratory Distress, Decreased Breath Sounds Cardiovascular: Regular Rate, Rhythm, No Edema, No Gallop, No JVD, No Murmur, Normal Peripheral Pulses Gastrointestinal: Normal Bowel Sounds, No Organomegaly, No Pulsatile Mass, Non Tender, Soft Back: Normal Inspection, No CVA Tenderness, No Vertebral Tenderness Extremity: Normal Capillary Refill, Normal Inspection, Normal Range of Motion (Left-sided hemiparesis), Non Tender, No Calf Tenderness, No Pedal Edema Neurologic/Psychiatric: Alert, Oriented x3, No Motor/Sensory Deficits, motor express clerk II- XII Norm as Tested, Abnormal Gait, Depressed Affect, Motor Weakness (Left weakness greater than right but generalized throughout) Skin: Normal Color, Warm/Dry Lymphatic: No Adenopathy Results/Procedures Lab Patient resulted labs reviewed. FIM Transfers Therapy Code Descriptions/Definitions Functional [place] Measure: 0=Not Assessed/NA 4=Minimal Assistance 1=Total Assistance 5=Supervision or Setup 2=Maximal Assistance 6=Modified [place] 3=Moderate Assistance 7=Complete IndependenceSCALE: Activities may be completed with or without assistive devices. 7-Khmkiavgwl-tlixhuw completes the activity by him/herself with no assistance from a helper. 5-Set-up or Clean-up Assistance-helper sets up or cleans up; patient completes activity. [place] assists only prior to or following the activity. 4-Supervision or Touching Assistance-helper provides verbal cues and/or touching/steadying and/or contact guard assistance as patient completes activity. Assistance may be provided throughout the activity or intermittently. 3-Partial/Moderate Assistance-helper does LESS THAN HALF the effort. [place] lifts, holds or supports trunk or limbs, but provides less than half the effort. 2-Substantial/Maximal Assistance-helper does MORE THAN HALF the effort. [place] lifts or holds trunk or limbs and provides more than half the effort. 3-Ujfhpzxmk-xtrysx does ALL the effort. Patient does none of the effort to complete the activity. Or, the assistance of 2 or more helpers is required for the patient to complete the activity. If activity was not attempted, code reason: 7-Patient Refused. 9-Not Applicable-not attempted and the patient did not perform the activity before the current illness, exacerbation or injury. 10-Not Attempted due to Environmental Limitations-(lack of equipment, weather restraints, etc.). 88-Not Attempted due to Medical Conditions or Safety Concerns. Roll Left to Right (QC): 6 Sit to Lying (QC): 6 Sit to Stand (QC): 4 Chair/Dtm-we-Mffpd Xfer(QC): 4 Car Transfer (QC): 3 Gait Training Does the Patient Walk?: Yes Distance: 150', 100'x2, 120' Walk 10 feet (QC): 4 Walk 50 ft with 2 Turns(QC): 4 Walk 150 ft (QC): 4 Walking 10ft/uneven surface-QC: 4 Gait Persons Needed: 1 Gait Assistive Device: Cane Single Point Wheelchair Training Does the Pt Use a Wheelchair?: No Wheel 50 ft with 2 turns (QC): 9 Wheel 150 ft (QC): 9 Stair Training #of Steps: 4 1 Step (curb) (QC): 4 4 Steps (QC): 4 12 Steps (QC): 88 Balance Picking up an Object (QC): 4 (CGA not using a document management analyst) ADL-Treatment Eating (QC): 5 Oral Hygiene (QC): 6 Shower/Bathe Self (QC): 4 Upper Body Dressing (QC): 3 (mod A) Lower Body Dressing (QC): 2 On/Off Footwear (QC): 3 (mod A) Toileting Hygiene (QC): 4 Toilet Transfer (QC): 4 Assessment/Plan Assessment and Plan Assess & Plan/Chief Complaint Assessment: Severe debility and worsening weakness post Covid 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 placed on midodrine Previous stroke with left-sided weakness CAD previous stents Hypertension Hyperlipidemia Prostate cancer Carotid stenosis Urinary frequency Dehydration now resolved after IV fluids GERD Acute UTI coag negative staph started on Vanc Poor nutrition Plan: Supportive care IV fluids Bladder scan Aggressive rehab protocol Dr Valencia consult Vanc empirically 11/21/2021: Vancomycin Hep-Lock IV fluid 11/22/2021: Maintain vancomycin Supportive care 11/23/2021: Vancomycin Supportive care 11/24/2021: Complete vancomycin for UTI (1) Debility (2) Recurrent syncope Status: Acute (3) Hypotension Status: Acute (4) Prostate cancer Status: Acute (5) Dehydration Status: Acute (6) History of cerebrovascular accident (7) Primary hypertension (8) Mixed hyperlipidemia (9) Orthostatic hypotension Status: Acute (10) Cerebral infarction due to unspecified occlusion or stenosis 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
[2021-11-24] MEDS: PANTOPRAZOLE 40 MG (PROTONIX) TAB PO SCH ×2 (06:54→17:04)
[2021-11-24 07:15] VITALS: BP 128/69
[2021-11-24] MEDS: polyethylene glycoL POWDER 17 GM (MIRALAX) PACK PO SCH ×2 (07:31→20:55)
[2021-11-24] MEDS: MIDODRINE 10 MG (PROAMATINE) TAB PO SCH ×3 (08:29→20:50)
[2021-11-24] MEDS: CLOPIDOGREL 75 MG (PLAVIX) TABLET PO SCH (08:29)
[2021-11-24] MEDS: FLUDROCORTISONE 0.1 MG (FLORINEF) TAB PO SCH (08:29)
[2021-11-24] MEDS: ASPIRIN E.C. 81 MG (ECOTRIN) TAB PO SCH (08:29)
[2021-11-24] MEDS: DOCUSATE SODIUM 100 MG (COLACE) CAP PO SCH ×2 (08:32→20:55)
[2021-11-24] MEDS: SENNA W/DOCUSATE (SENOKOT S) TABLET PO SCH ×2 (08:32→20:55)
[2021-11-24] MEDS: FAMOTIDINE 20 MG (PEPCID) TABLET PO SCH (08:33)
--- NOTE | 2021-11-24 09:04 | Occupational Ther Daily Note ---
OT Current Status-Daily Note Subjective Pt alert, laying in bed when OT entered. Pt agreed to therapy. No c/o pain reported. Mental Status/Objective Patient Orientation: Person, Place, Time, Situation ADL-Treatment Pt agreed to complete shower at this time. Pt transferred from supine to EOB. On ce at EOB pt reported feeling dizzy and felt like he could pass out if he were to get in shower. For safety, pt requested sponge bath at EOB. Pt was able to cleanse/dry UB, chest, and abdomen. Pt required Mod A to thread LUE through UB dressing. Pt then requested to lay down. While laying down, pt cleansed/dry upper LB. He stated his stomach was beginning to feel upset. Nrsing notified of pt's dizziness. Nrsing entered pt's room and transferred him to toilet. No dizziness reported to nrsing from pt. While seated at toilet, pt doffed LB dressing independently. Pt reported that his dizziness is starting to subside. Required Mod A to thread BLE through LB dressing. Pt sit-stand from toilet using grab bars with CGA. Pt able to hike R side of LB dressing, required assist on L side. Pt ambulated to sink using single point cane with CGA. Pt completed oral hygiene while standing at sink with CGA. Therapy Code Descriptions/Definitions Functional [place] Measure: 0=Not Assessed/NA 4=Minimal Assistance 1=Total Assistance 5=Supervision or Setup 2=Maximal Assistance 6=Modified [place] 3=Moderate Assistance 7=Complete IndependenceSCALE: Activities may be completed with or without assistive devices. 3-Elgmyvfuod-pgripzd completes the activity by him/herself with no assistance from a helper. 5-Set-up or Clean-up Assistance-helper sets up or cleans up; patient completes activity. [place] assists only prior to or following the activity. 4-Supervision or Touching Assistance-helper provides verbal cues and/or touching/steadying and/or contact guard assistance as patient completes activity. Assistance may be provided throughout the activity or intermittently. 3-Partial/Moderate Assistance-helper does LESS THAN HALF the effort. [place] lifts, holds or supports trunk or limbs, but provides less than half the effort. 2-Substantial/Maximal Assistance-helper does MORE THAN HALF the effort. [place] lifts or holds trunk or limbs and provides more than half the effort. 6-Bvdxjyopq-sizexr does ALL the effort. Patient does none of the effort to compl ete the activity. Or, the assistance of 2 or more helpers is required for the patient to complete the activity. If activity was not attempted, code reason: 7-Patient Refused. 9-Not Applicable-not attempted and the patient did not perform the activity before the current illness, exacerbation or injury. 10-Not Attempted due to Environmental Limitations-(lack of equipment, weather restraints, etc.). 88-Not Attempted due to Medical Conditions or Safety Concerns. Other Treatment Pt completed x2 sets of 10 reps BUE dowel exercises of shldr flex, chest press, external rotation, and forward rotation. Pt able to complete ROM with dowel allegra though not WFL. Pt required several resting breaks throughout exercises due to decreased activity tolerance. Pt reminded to complete exercises slowly and not to batres self. Pt completed wt bearing with L UE on EOB 10x's holding position 5 sec. After session, pt lying in bed with call light/phone in reach. All needs met in room. Education OT Patient Education: Correct positioning, Energy conservation, Exercise program, Home exercise program, Safety issues Teaching Recipient: Patient Teaching Methods: Demonstration, Discussion Response to Teaching: Verbalize Understanding, Return Demonstration OT Short Term Goals Short Term Goals Time Frame: Nov 28, 2021 Toileting hygiene: 3 Upper body dressin OT Nursing Home Goals Scrub Tech Goals Time Frame: Dec 14, 2021 Eating (QC): 5 Oral Hygiene (QC): 5 Toileting Hygiene (QC): 4 Shower/Bathe Self (QC): 4 Upper Body Dressing (QC): 4 Lower Body Dressing (QC): 4 On/Off Footwear (QC): 4 Additional Goals: 1-Demonstrate ADL Tasks, 2-Verbalize Understanding, 3- ImproveStrength/[place] 1=Demonstrate adherence to instructed precautions during ADL tasks. 2=Patient will verbalize/demonstrate understanding of assistive devices/modifications for ADL. 3=Patient will improve strength/tolerance for activity to enable patient to perform ADL's. OT Education/Plan Problem List/Assessment Assessment: Decreased Activ Tolerance, Decreased UE Strength, Impaired I ADL's, Impaired Self-Care Skills Discharge Recommendations Plan/Recommendations: Continue POC Treatment Plan/Plan of Care Patient would benefit from OT for education, treatment and training to promote independence in ADL's, mobility, safety and/or upper extremity function for ADL's. Plan of Care: ADL Retraining, Functional Mobility, UE Funct Exercise/Act, UE Neuromus Re-Ed/Coord Treatment Duration: Dec 14, 2021 Frequency: At least 5 of 7 days/Wk (IRF) Estimated Hrs Per Day: 1.5 hours per day Agreement: Yes Rehab Potential: Fair Time/GCodes Start Time: 07:30 Stop Time: 09:00 Total Time Billed (hr/min): 90 Billed Treatment Time 1 visit- ADL 4 (62 mins) EX 2 (28 mins) MAURICE LY Nov 24, 2021 09:03
--- NOTE | 2021-11-24 10:53 | Physical Therapy Daily Note ---
PT Daily Note-Current Subjective Pt laying Supine in bed upon arrival. Pt had OT shortly before arrival. Pt reports fatigued due to not sleeping well last night and just having OT tx. Mental Status Patient Orientation: Person, Place, Time, Situation Transfers SCALE: Activities may be completed with or without assistive devices. 0-Lzdxcckdsv-zduqdda completes the activity by him/herself with no assistance f rom a helper. 5-Set-up or Clean-up Assistance-helper sets up or cleans up; patient completes activity. [place] assists only prior to or following the activity. 4-Supervision or Touching Assistance-helper provides verbal cues and/or touching/steadying and/or contact guard assistance as patient completes activity. Assistance may be provided throughout the activity or intermittently. 3-Partial/Moderate Assistance-helper does LESS THAN HALF the effort. [place] lifts, holds or supports trunk or limbs, but provides less than half the effort. 2-Substantial/Maximal Assistance-helper does MORE THAN HALF the effort. [place] lifts or holds trunk or limbs and provides more than half the effort. 8-Zfwzrbsvk-likzjp does ALL the effort. Patient does none of the effort to complete the activity. Or, the assistance of 2 or more helpers is required for the patient to complete the activity. If activity was not attempted, code reason: 7-Patient Refused. 9-Not Applicable-not attempted and the patient did not perform the activity before the current illness, exacerbation or injury. 10-Not Attempted due to Environmental Limitations-(lack of equipment, weather restraints, etc.). 88-Not Attempted due to Medical Conditions or Safety Concerns. Lying to Sitting/Side of Bed(Q: 4 Sit to Stand (QC): 4 Toilet Transfer (QC): 4 Weight Bearing Full Weight Bearing Full Weight Bearing Gait Training Does the Patient Walk?: Yes Distance: 75' x2 Walk 10 feet (QC): 4 Walk 50 ft with 2 Turns(QC): 4 Gait Persons Needed: 1 Gait Assistive Device: Cane Single Point Exercises Standing: Hip Abduction, Heel/toe raises, Marching, Sit to Stand, Weight shifts Standing Reps: 15 NuStep Minutes: 10 NuStep Workload: 4 Treatments TF to standing and amb. in hallway. Pt uses NuStep for 10m at WL 4, frequent RB. Pt completes Standing Ex at //bars to work on balance, frequent RB needed. Pt amb. in hallway, then uses BR before needing to rest. Pt returns to bed and HAND ALTERATIONS SEAMSTRESS issues and reviews written HEP for Supine & Seated EX. Pt has all needs met, call light in hand. Assessment Current Status: Fair Progress Pt fatigues easily and needs frequent RB to recover. PT Short Term Goals Short Term Goals Time Frame: Nov 27, 2021 Roll Left & Right: 6 Sit to lyin Lying to sitting on side of be: 6 Sit to stand: 4 (SBA) Chair/jpq-us-vbtwx transfer: 4 (SBA) Walk 10 feet: 4 (SBA) Walk 50 feet with two turns: 4 (SBA) PT Alf Goals Highway Painter Helper Goals PT Highway Painter Helper Goals Time Frame: Dec 11, 2021 Roll Left & Right (QC): 6 Sit to Lying (QC): 6 Lying-Sitting on Side/Bed(QC): 6 Sit to Stand (QC): 5 Chair/Unx-vh-Stgne Xfer(QC): 5 Toilet Transfer (QC): 5 Car Transfer (QC): 5 Does the Patient Walk: Yes Walk 10 feet (QC): 5 Walk 50ft with 2 Turns (QC): 5 Walk 150 ft (QC): 5 Walking 10ft on Uneven Surface: 5 1 Step (curb) (QC): 4 (SBA) 4 Steps (QC): 4 (SBA) 12 Steps (QC): 88 Picking up an Object (QC): 4 (SBA) Wheel 50 feet with 2 turns (QC: 9 Wheel 150 feet: 9 PT Plan Problem List Problem List: Activity Tolerance, Balance Treatment/Plan Treatment Plan: Continue Plan of Care Treatment Plan: Bed Mobility, Education, Functional Activity Jose Carlos, Functional Strength, Group Therapy, Gait, Safety, Therapeutic Exercise, Transfers Treatment Duration: Dec 11, 2021 Frequency: At least 5 of 7 days/Wk (IRF) Estimated Hrs Per Day: 1.5 hours per day Patient and/or Family Agrees t: Yes Safety Risks/Education Patient Education: Gait Training, Transfer Techniques, Issued Written HEP, Correct Positioning, Safety Issues Teaching Recipient: Patient Teaching Methods: Discussion Response to Teaching: Verbalize Understanding Time/GCodes Time In: 920 Time Out: 1050 Total Billed Treatment Time: 90 Total Billed Treatment 1, GT x2 (25m), EX x2 (35m) & FA x2 (30m) TAYLA KERNS HAND ALTERATIONS SEAMSTRESS Nov 24, 2021 10:53
[2021-11-24] MEDS: VANCOMYCIN 1 GM/NS 250 ML IVPB IV SCH ×4 (10:57→22:13)
[2021-11-24] MEDS: TAMSULOSIN 0.4 MG (FLOMAX) CAP PO SCH (17:04)
[2021-11-24 19:59] VITALS: BP 133/74
[2021-11-24] MEDS: ENOXAPARIN 40 MG/0.4 ML (LOVENOX) SYR SC SCH (20:47)
[2021-11-24] MEDS: ACETAMINOPHEN 325 MG TABLET PO PRN (20:51)
[2021-11-25] MEDS: PANTOPRAZOLE 40 MG (PROTONIX) TAB PO SCH ×2 (06:51→14:57)
[2021-11-25 07:12] VITALS: BP 144/70
--- NOTE | 2021-11-25 07:33 | PM&R Progress Note ---
Subjective HPI/CC On Admission Date Seen by Provider: Nov 25, 2021 Time Seen by Provider: 12:15 Subjective/Events-last exam 11/25/2021: Patient slept last night Urinary frequency continues Vancomycin maintain Monitor closely 11/24/2021: Much improved Nocturia still present disturbing sleep Flomax twice a day tolerated Eating better Feels like he is making progress 11/23/2021: Much improved status Urinary frequency is still present Flomax twice a day Eating better Walking better Motivation good 11/22/2021: Patient much improved Urology change Flomax to twice a day Minimal post void residual Patient feels like he is stronger No falls Reviewed urine culture 11/21/2021: Patient improved We will Hep-Lock IV fluid Patient will focus on dietary consumption Urinary frequency will be addressed by urology No pain is reported Weakness is noted Checked meds and labs Review of Systems General: Fatigue, Malaise Objective Exam Vital Signs Vital Signs Date Time Temp Pulse Resp B/P (MAP) Pulse Ox O2 Delivery O2 Flow Rate FiO2 11/25/21 09:00 Room Air 11/25/21 07:12 36.2 78 20 144/70 (94) 93 Capillary Refill : General Appearance: WD/WN, Anxious, Chronically ill, Thin, Other (Frail) HEENT: PERRL/EOMI, Normal ENT Inspection, Pharynx Normal Neck: Full Range of Motion, Normal Inspection, Non Tender, Supple, Carotid Bruit Respiratory: Chest Non Tender, Lungs Clear, No Accessory Muscle Use, No Respiratory Distress, Decreased Breath Sounds Cardiovascular: Regular Rate, Rhythm, No Edema, No Gallop, No JVD, No Murmur, Normal Peripheral Pulses Gastrointestinal: Normal Bowel Sounds, No Organomegaly, No Pulsatile Mass, Non Tender, Soft Back: Normal Inspection, No CVA Tenderness, No Vertebral Tenderness Extremity: Normal Capillary Refill, Normal Inspection, Normal Range of Motion (Left-sided hemiparesis), Non Tender, No Calf Tenderness, No Pedal Edema Neurologic/Psychiatric: Alert, Oriented x3, No Motor/Sensory Deficits, tool setter II- XII Norm as Tested, Abnormal Gait, Depressed Affect, Motor Weakness (Left weakness greater than right but generalized throughout) Skin: Normal Color, Warm/Dry Lymphatic: No Adenopathy Results/Procedures Lab Patient resulted labs reviewed. FIM Transfers Therapy Code Descriptions/Definitions Functional [place] Measure: 0=Not Assessed/NA 4=Minimal Assistance 1=Total Assistance 5=Supervision or Setup 2=Maximal Assistance 6=Modified [place] 3=Moderate Assistance 7=Complete IndependenceSCALE: Activities may be completed with or without assistive devices. 7-Hthvqhadyc-kituqaz completes the activity by him/herself with no assistance from a helper. 5-Set-up or Clean-up Assistance-helper sets up or cleans up; patient completes activity. [place] assists only prior to or following the activity. 4-Supervision or Touching Assistance-helper provides verbal cues and/or touching/steadying and/or contact guard assistance as patient completes activity. Assistance may be provided throughout the activity or intermittently. 3-Partial/Moderate Assistance-helper does LESS THAN HALF the effort. [place] lifts, holds or supports trunk or limbs, but provides less than half the effort. 2-Substantial/Maximal Assistance-helper does MORE THAN HALF the effort. [place] lifts or holds trunk or limbs and provides more than half the effort. 4-Qwoykdxlq-bpecbg does ALL the effort. Patient does none of the effort to complete the activity. Or, the assistance of 2 or more helpers is required for the patient to complete the activity. If activity was not attempted, code reason: 7-Patient Refused. 9-Not Applicable-not attempted and the patient did not perform the activity before the current illness, exacerbation or injury. 10-Not Attempted due to Environmental Limitations-(lack of equipment, weather restraints, etc.). 88-Not Attempted due to Medical Conditions or Safety Concerns. Roll Left to Right (QC): 6 Sit to Lying (QC): 6 Sit to Stand (QC): 4 Chair/Jld-md-[place] Xfer(QC): 4 Car Transfer (QC): 3 Gait Training Does the Patient Walk?: Yes Distance: 75' x2 Walk 10 feet (QC): 4 Walk 50 ft with 2 Turns(QC): 4 Walk 150 ft (QC): 4 Walking 10ft/uneven surface-QC: 4 Gait Persons Needed: 1 Gait Assistive Device: Cane Single Point Wheelchair Training Does the Pt Use a Wheelchair?: No Wheel 50 ft with 2 turns (QC): 9 Wheel 150 ft (QC): 9 Stair Training #of Steps: 4 1 Step (curb) (QC): 4 4 Steps (QC): 4 12 Steps (QC): 88 Balance Picking up an Object (QC): 4 (CGA not using a embossing machine operator) ADL-Treatment Eating (QC): 5 Oral Hygiene (QC): 6 Shower/Bathe Self (QC): 4 Upper Body Dressing (QC): 3 (mod A) Lower Body Dressing (QC): 2 On/Off Footwear (QC): 3 (mod A) Toileting Hygiene (QC): 4 Toilet Transfer (QC): 4 Assessment/Plan Assessment and Plan Assess & Plan/Chief Complaint Patient is assessment: Severe debility and worsening weakness post Covid 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 placed on midodrine Previous stroke with left-sided weakness CAD previous stents Hypertension Hyperlipidemia Prostate cancer Carotid stenosis Urinary frequency Dehydration now resolved after IV fluids GERD Acute UTI coag negative staph started on Vanc Poor nutrition Plan: Supportive care IV fluids Bladder scan Aggressive rehab protocol Dr Valencia consult Vanc empirically 11/21/2021: Vancomycin Hep-Lock IV fluid 11/22/2021: Maintain vancomycin Supportive care 11/23/2021: Vancomycin Supportive care 11/24/2021: Complete vancomycin for UTI 11/25/2021: Vancomycin Supportive care (1) Debility (2) Recurrent syncope Status: Acute (3) Hypotension Status: Acute (4) Prostate cancer Status: Acute (5) Dehydration Status: Acute (6) History of cerebrovascular accident (7) Primary hypertension (8) Mixed hyperlipidemia (9) Orthostatic hypotension Status: Acute (10) Cerebral infarction due to unspecified occlusion or stenosis 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
[2021-11-25] MEDS: CLOPIDOGREL 75 MG (PLAVIX) TABLET PO SCH (08:01)
[2021-11-25] MEDS: FAMOTIDINE 20 MG (PEPCID) TABLET PO SCH (08:01)
[2021-11-25] MEDS: DOCUSATE SODIUM 100 MG (COLACE) CAP PO SCH ×2 (08:01→20:41)
[2021-11-25] MEDS: FLUDROCORTISONE 0.1 MG (FLORINEF) TAB PO SCH (08:01)
[2021-11-25] MEDS: SENNA W/DOCUSATE (SENOKOT S) TABLET PO SCH ×2 (08:01→20:48)
[2021-11-25] MEDS: ASPIRIN E.C. 81 MG (ECOTRIN) TAB PO SCH (08:01)
[2021-11-25] MEDS: polyethylene glycoL POWDER 17 GM (MIRALAX) PACK PO SCH ×2 (08:01→20:48)
[2021-11-25] MEDS: MIDODRINE 10 MG (PROAMATINE) TAB PO SCH ×3 (08:01→20:42)
[2021-11-25] MEDS: VANCOMYCIN 1 GM/NS 250 ML IVPB IV SCH ×4 (10:27→22:22)
[2021-11-25] MEDS: TAMSULOSIN 0.4 MG (FLOMAX) CAP PO SCH (17:35)
[2021-11-25 19:35] VITALS: BP 132/75
[2021-11-25] MEDS: ENOXAPARIN 40 MG/0.4 ML (LOVENOX) SYR SC SCH (20:40)
[2021-11-25] MEDS: MELATONIN 3 MG TABLET PO PRN (20:41)
[2021-11-25] MEDS: ACETAMINOPHEN 325 MG TABLET PO PRN (20:42)
--- NOTE | 2021-11-26 05:37 | PM&R Progress Note ---
Subjective HPI/CC On Admission Date Seen by Provider: Nov 26, 2021 Time Seen by Provider: 10:30 Subjective/Events-last exam 11/26/2021: Pt doing really well PICC line issues will be managed Vancomycin is still on board for UTI Staph Epidermidis Bp is much improved 11/25/2021: Patient slept last night Urinary frequency continues Vancomycin maintain Monitor closely 11/24/2021: Much improved Nocturia still present disturbing sleep Flomax twice a day tolerated Eating better Feels like he is making progress 11/23/2021: Much improved status Urinary frequency is still present Flomax twice a day Eating better Walking better Motivation good 11/22/2021: Patient much improved Urology change Flomax to twice a day Minimal post void residual Patient feels like he is stronger No falls Reviewed urine culture 11/21/2021: Patient improved We will Hep-Lock IV fluid Patient will focus on dietary consumption Urinary frequency will be addressed by urology No pain is reported Weakness is noted Checked meds and labs Review of Systems General: Fatigue, Malaise Genitourinary: Frequency Objective Exam Vital Signs Vital Signs Date Time Temp Pulse Resp B/P (MAP) Pulse Ox O2 Delivery O2 Flow Rate FiO2 11/26/21 20:10 Room Air 11/26/21 19:25 36.4 78 20 133/62 (85) 94 Capillary Refill : General Appearance: WD/WN, Anxious, Chronically ill, Thin, Other (Frail) HEENT: PERRL/EOMI, Normal ENT Inspection, Pharynx Normal Neck: Full Range of Motion, Normal Inspection, Non Tender, Supple, Carotid Bruit Respiratory: Chest Non Tender, Lungs Clear, No Accessory Muscle Use, No Respiratory Distress, Decreased Breath Sounds Cardiovascular: Regular Rate, Rhythm, No Edema, No Gallop, No JVD, No Murmur, Normal Peripheral Pulses Gastrointestinal: Normal Bowel Sounds, No Organomegaly, No Pulsatile Mass, Non Tender, Soft Back: Normal Inspection, No CVA Tenderness, No Vertebral Tenderness Extremity: Normal Capillary Refill, Normal Inspection, Normal Range of Motion (Left-sided hemiparesis), Non Tender, No Calf Tenderness, No Pedal Edema Neurologic/Psychiatric: Alert, Oriented x3, No Motor/Sensory Deficits, tunneller II- XII Norm as Tested, Abnormal Gait, Depressed Affect, Motor Weakness (Left weakness greater than right but generalized throughout) Skin: Normal Color, Warm/Dry Lymphatic: No Adenopathy Results/Procedures Lab Laboratory Tests 11/26/21 09:40 Patient resulted labs reviewed. FIM Transfers Therapy Code Descriptions/Definitions Functional [place] Measure: 0=Not Assessed/NA 4=Minimal Assistance 1=Total Assistance 5=Supervision or Setup 2=Maximal Assistance 6=Modified [place] 3=Moderate Assistance 7=Complete IndependenceSCALE: Activities may be completed with or without assistive devices. 7-Ceujcrflfn-cjyimut completes the activity by him/herself with no assistance from a helper. 5-Set-up or Clean-up Assistance-helper sets up or cleans up; patient completes activity. [place] assists only prior to or following the activity. 4-Supervision or Touching Assistance-helper provides verbal cues and/or touching/steadying and/or contact guard assistance as patient completes activity. Assistance may be provided throughout the activity or intermittently. 3-Partial/Moderate Assistance-helper does LESS THAN HALF the effort. [place] lifts, holds or supports trunk or limbs, but provides less than half the effort. 2-Substantial/Maximal Assistance-helper does MORE THAN HALF the effort. [place] lifts or holds trunk or limbs and provides more than half the effort. 7-Rqipitkkf-zuybca does ALL the effort. Patient does none of the effort to complete the activity. Or, the assistance of 2 or more helpers is required for the patient to complete the activity. If activity was not attempted, code reason: 7-Patient Refused. 9-Not Applicable-not attempted and the patient did not perform the activity before the current illness, exacerbation or injury. 10-Not Attempted due to Environmental Limitations-(lack of equipment, weather restraints, etc.). 88-Not Attempted due to Medical Conditions or Safety Concerns. 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) ADL-Treatment Eating (QC): 5 Oral Hygiene (QC): 6 Shower/Bathe Self (QC): 4 Upper Body Dressing (QC): 3 (mod A) Lower Body Dressing (QC): 2 On/Off Footwear (QC): 3 (mod A) Toileting Hygiene (QC): 4 Toilet Transfer (QC): 4 Assessment/Plan Assessment and Plan Assess & Plan/Chief Complaint Patient is assessment: Severe debility and worsening weakness post Covid 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 placed on midodrine Previous stroke with left-sided weakness CAD previous stents Hypertension Hyperlipidemia Prostate cancer Carotid stenosis Urinary frequency Dehydration now resolved after IV fluids GERD Acute UTI coag negative staph started on Vanc Poor nutrition Plan: Supportive care IV fluids Bladder scan Aggressive rehab protocol Dr Valencia consult Vanc empirically 11/21/2021: Vancomycin Hep-Lock IV fluid 11/22/2021: Maintain vancomycin Supportive care 11/23/2021: Vancomycin Supportive care 11/24/2021: Complete vancomycin for UTI 11/25/2021: Vancomycin Supportive care 11/26/2021: Supportive care Complete vancomycin (1) Debility (2) Recurrent syncope Status: Acute (3) Hypotension Status: Acute (4) Prostate cancer Status: Acute (5) Dehydration Status: Acute (6) History of cerebrovascular accident (7) Primary hypertension (8) Mixed hyperlipidemia (9) Orthostatic hypotension Status: Acute (10) Cerebral infarction due to unspecified occlusion or stenosis 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 GUILLERMO CABELLO DO Nov 26, 2021 05:37
[2021-11-26] MEDS: PANTOPRAZOLE 40 MG (PROTONIX) TAB PO SCH ×2 (06:48→16:59)
[2021-11-26 07:22] VITALS: BP 138/66
[2021-11-26] MEDS: DOCUSATE SODIUM 100 MG (COLACE) CAP PO SCH ×2 (08:22→20:18)
[2021-11-26] MEDS: ASPIRIN E.C. 81 MG (ECOTRIN) TAB PO SCH (08:22)
[2021-11-26] MEDS: FLUDROCORTISONE 0.1 MG (FLORINEF) TAB PO SCH (08:22)
[2021-11-26] MEDS: FAMOTIDINE 20 MG (PEPCID) TABLET PO SCH (08:22)
[2021-11-26] MEDS: CLOPIDOGREL 75 MG (PLAVIX) TABLET PO SCH (08:22)
[2021-11-26] MEDS: MIDODRINE 10 MG (PROAMATINE) TAB PO SCH ×3 (08:22→20:18)
[2021-11-26] MEDS: polyethylene glycoL POWDER 17 GM (MIRALAX) PACK PO SCH ×2 (09:18→19:47)
[2021-11-26] MEDS: SENNA W/DOCUSATE (SENOKOT S) TABLET PO SCH ×2 (09:18→20:18)
--- NOTE | 2021-11-26 09:52 | Physical Therapy Daily Note ---
PT Daily Note-Current Subjective Patient in bed pre tx, agrees to PT but is very sleepy and tired, has no complaints of pain. Appearance Patient in bed post tx with nurse call, phone, tray, all needs met. Mental Status Patient Orientation: Person, Place, Situation Transfers SCALE: Activities may be completed with or without assistive devices. 0-Diesmmxyba-ffkhovi completes the activity by him/herself with no assistance from a helper. 5-Set-up or Clean-up Assistance-helper sets up or cleans up; patient completes activity. [place] assists only prior to or following the activity. 4-Supervision or Touching Assistance-helper provides verbal cues and/or touching/steadying and/or contact guard assistance as patient completes activity. Assistance may be provided throughout the activity or intermittently. 3-Partial/Moderate Assistance-helper does LESS THAN HALF the effort. [place] lifts, holds or supports trunk or limbs, but provides less than half the effort. 2-Substantial/Maximal Assistance-helper does MORE THAN HALF the effort. [place] lifts or holds trunk or limbs and provides more than half the effort. 7-Wtuwhvphn-kvgpdi does ALL the effort. Patient does none of the effort to complete the activity. Or, the assistance of 2 or more helpers is required for the patient to complete the activity. If activity was not attempted, code reason: 7-Patient Refused. 9-Not Applicable-not attempted and the patient did not perform the activity before the current illness, exacerbation or injury. 10-Not Attempted due to Environmental Limitations-(lack of equipment, weather restraints, etc.). 88-Not Attempted due to Medical Conditions or Safety Concerns. Roll Left & Right (QC): 6 Sit to Lying (QC): 6 Lying to Sitting/Side of Bed(Q: 6 Sit to Stand (QC): 4 Chair/Rcr-ko-Ntxiu Xfer(QC): 4 Weight Bearing Full Weight Bearing Full Weight Bearing Gait Training Distance: 150'x2, 120' Walk 10 feet (QC): 4 Walk 50 ft with 2 Turns(QC): 4 Walk 150 ft (QC): 4 Gait Persons Needed: 1 Gait Assistive Device: Cane Single Point patient tends to drift to the left side, short/choppy steps when turning Exercises Standing: Heel/toe raises, Marching, Mini squats Standing Reps: 15 NuStep Minutes: 15 NuStep Workload: 5 Treatments bed mobility and transfers, ambulation, functional strengthening Assessment Current Status: Fair Progress patient was very tired today, needed extra rest breaks due to fatigue PT Short Term Goals Short Term Goals Time Frame: Nov 27, 2021 Roll Left & Right: 6 Sit to lyin Lying to sitting on side of be: 6 Sit to stand: 4 (SBA) Chair/dam-lh-cgjsy transfer: 4 (SBA) Walk 10 feet: 4 (SBA) Walk 50 feet with two turns: 4 (SBA) PT Nuclear Powerplant Supervisor Goals Care Home Goals PT Nuclear Powerplant Supervisor Goals Time Frame: Dec 11, 2021 Roll Left & Right (QC): 6 Sit to Lying (QC): 6 Lying-Sitting on Side/Bed(QC): 6 Sit to Stand (QC): 5 Chair/Mpl-gk-Wgpvr Xfer(QC): 5 Toilet Transfer (QC): 5 Car Transfer (QC): 5 Does the Patient Walk: Yes Walk 10 feet (QC): 5 Walk 50ft with 2 Turns (QC): 5 Walk 150 ft (QC): 5 Walking 10ft on Uneven Surface: 5 1 Step (curb) (QC): 4 (SBA) 4 Steps (QC): 4 (SBA) 12 Steps (QC): 88 Picking up an Object (QC): 4 (SBA) Wheel 50 feet with 2 turns (QC: 9 Wheel 150 feet: 9 PT Plan Problem List Problem List: Activity Tolerance, Functional Strength, Safety, Balance, Gait, Transfer, Bed Mobility, ROM Treatment/Plan Treatment Plan: Continue Plan of Care Treatment Plan: Bed Mobility, Education, Functional Activity Jose Carlos, Functional Strength, Group Therapy, Gait, Safety, Therapeutic Exercise, Transfers Treatment Duration: Dec 11, 2021 Frequency: At least 5 of 7 days/Wk (IRF) Estimated Hrs Per Day: 1.5 hours per day Patient and/or Family Agrees t: Yes Safety Risks/Education Patient Education: Gait Training, Transfer Techniques, Correct Positioning, Safety Issues Teaching Recipient: Patient Teaching Methods: Demonstration, Discussion Response to Teaching: Reinforcement Needed Time/GCodes Time In: 0900 Time Out: 1000 Total Billed Treatment Time: 60 Total Billed Treatment 1 visit EX 30' FA 30' FELIZ GRIMM PT Nov 26, 2021 09:52
[2021-11-26 09:55] LABS: BASOPHILS # (AUTO) 0.1 10^3/uL (0.0-0.1); BASOPHILS % (AUTO) 1 % (0-10); EOSINOPHILS # (AUTO) 0.3 10^3/uL (0.0-0.3); EOSINOPHILS % (AUTO) 4 % (0-10); HEMATOCRIT 39 % (40-54); HEMOGLOBIN 12.3 g/dL (13.3-17.7); LYMPHOCYTES # (AUTO) 1.6 10^3/uL (1.0-4.0); LYMPHOCYTES % (AUTO) 23 % (12-44); MEAN CORPUSCULAR HEMOGLOBIN 29 pg (25-34); MEAN CORPUSCULAR HGB CONC 31 g/dL (32-36); MEAN CORPUSCULAR VOLUME 91 fL (80-99); MEAN PLATELET VOLUME 8.7 fL (9.0-12.2); MONOCYTES # (AUTO) 0.6 10^3/uL (0.0-1.0); MONOCYTES % (AUTO) 8 % (0-12); NEUTROPHILS # (AUTO) 4.5 10^3/uL (1.8-7.8); NEUTROPHILS % (AUTO) 63 % (42-75); PLATELET COUNT 382 10^3/uL (130-400); WHITE BLOOD COUNT 7.2 10^3/uL (4.3-11.0)
[2021-11-26] MEDS: VANCOMYCIN 1 GM/NS 250 ML IVPB IV SCH ×4 (10:02→21:32)
[2021-11-26 10:10] LABS: ALBUMIN 3.1 GM/DL (3.2-4.5)
[2021-11-26 10:11] LABS: POTASSIUM 3.6 MMOL/L (3.6-5.0)
[2021-11-26 10:12] LABS: CALCIUM 9.2 MG/DL (8.5-10.1)
[2021-11-26 10:15] LABS: BILIRUBIN,TOTAL 0.4 MG/DL (0.1-1.0)
[2021-11-26 10:16] LABS: CREATININE SERUM 0.79 MG/DL (0.60-1.30)
--- NOTE | 2021-11-26 11:49 | Physical Therapy Daily Note ---
PT Daily Note-Current Subjective Patient sitting in recliner pre tx, agrees to PT, has unrated pain in left shoulder. Will be co-treating with OT due to poor patient mobility, strength, endurance, coordinate UE and LE during activity, safety and reduce risk of falls, and to work on more advanced balance activities. Appearance Patient in recliner post tx with nurse call, phone, tray, all needs met. Mental Status Patient Orientation: Person, Place, Situation Transfers SCALE: Activities may be completed with or without assistive devices. 5-Dkcvnthdng-mflicqh completes the activity by him/herself with no assistance from a helper. 5-Set-up or Clean-up Assistance-helper sets up or cleans up; patient completes activity. [place] assists only prior to or following the activity. 4-Supervision or Touching Assistance-helper provides verbal cues and/or touching/steadying and/or contact guard assistance as patient completes activity. Assistance may be provided throughout the activity or intermittently. 3-Partial/Moderate Assistance-helper does LESS THAN HALF the effort. [place] lifts, holds or supports trunk or limbs, but provides less than half the effort. 2-Substantial/Maximal Assistance-helper does MORE THAN HALF the effort. [place] lifts or holds trunk or limbs and provides more than half the effort. 2-Ezyivrhje-neonrx does ALL the effort. Patient does none of the effort to complete the activity. Or, the assistance of 2 or more helpers is required for the patient to complete the activity. If activity was not attempted, code reason: 7-Patient Refused. 9-Not Applicable-not attempted and the patient did not perform the activity before the current illness, exacerbation or injury. 10-Not Attempted due to Environmental Limitations-(lack of equipment, weather restraints, etc.). 88-Not Attempted due to Medical Conditions or Safety Concerns. Sit to Stand (QC): 4 Chair/Igd-qf-Onrme Xfer(QC): 4 Weight Bearing Full Weight Bearing Full Weight Bearing Gait Training Distance: 120'x2 Walk 10 feet (QC): 4 Walk 50 ft with 2 Turns(QC): 4 Gait Persons Needed: 1 Gait Assistive Device: Cane Single Point Neuromuscular Patient performed ring and reaching activity, seated, with one leg crossed over the other in a position simulation to get his sock on, he has been having trouble with this functional activity so balance training was performed in this position. He also performed ring and reaching activity while standing and balloon activity while standing, with feet wide and narrow and activity to the front and side. Treatments PT performed transfers, ambulation, assist with balance during balance activities, OT performed balance activities, UE positioning and safety during activity. Assessment Current Status: Fair Progress Patient tends to lose balance to the left side narrow MARIO during balance activities. PT Short Term Goals Short Term Goals Time Frame: Nov 27, 2021 Roll Left & Right: 6 Sit to lyin Lying to sitting on side of be: 6 Sit to stand: 4 (SBA) Chair/dvb-yk-fxbft transfer: 4 (SBA) Walk 10 feet: 4 (SBA) Walk 50 feet with two turns: 4 (SBA) PT Business Account Specialist Goals Business Account Specialist Goals PT Senior Living Goals Time Frame: Dec 11, 2021 Roll Left & Right (QC): 6 Sit to Lying (QC): 6 Lying-Sitting on Side/Bed(QC): 6 Sit to Stand (QC): 5 Chair/Flm-km-Lxmxq Xfer(QC): 5 Toilet Transfer (QC): 5 Car Transfer (QC): 5 Does the Patient Walk: Yes Walk 10 feet (QC): 5 Walk 50ft with 2 Turns (QC): 5 Walk 150 ft (QC): 5 Walking 10ft on Uneven Surface: 5 1 Step (curb) (QC): 4 (SBA) 4 Steps (QC): 4 (SBA) 12 Steps (QC): 88 Picking up an Object (QC): 4 (SBA) Wheel 50 feet with 2 turns (QC: 9 Wheel 150 feet: 9 PT Plan Problem List Problem List: Activity Tolerance, Functional Strength, Safety, Balance, Gait, Transfer, Bed Mobility, ROM Treatment/Plan Treatment Plan: Continue Plan of Care Treatment Plan: Bed Mobility, Education, Functional Activity Jose Carlos, Functional Strength, Group Therapy, Gait, Safety, Therapeutic Exercise, Transfers Treatment Duration: Dec 11, 2021 Frequency: At least 5 of 7 days/Wk (IRF) Estimated Hrs Per Day: 1.5 hours per day Patient and/or Family Agrees t: Yes Safety Risks/Education Patient Education: Gait Training, Transfer Techniques, Correct Positioning, Safety Issues Teaching Recipient: Patient Teaching Methods: Demonstration, Discussion Response to Teaching: Reinforcement Needed Time/GCodes Time In: 1115 Time Out: 1145 Total Billed Treatment Time: 30 Total Billed Treatment 1 visit FA 10' NM 20' co-treated for 30' FELIZ GRIMM PT Nov 26, 2021 11:49
--- NOTE | 2021-11-26 11:56 | Occupational Ther Daily Note ---
OT Current Status-Daily Note Subjective Pt alert, lying in bed. Pt agrees to therapy. Pt c/o pain, ointment applied to L shldr, reported to nrsg. Mental Status/Objective Patient Orientation: Person, Place, Time, Situation ADL-Treatment Pt agrees to shower. SBA for toilet transfer and toileting. Independent with oral care standing at sink. Shower completed mostly sitting on shower bench then SBA in standing while pt cleanses buttocks/patrick area. Max A lower body dressing and footwear, attempting to educate pt on different techniques for ease. Pt continues to complete the same way which then hooks on either little toe or heel and pt gets frustrated and assist is needed. SBA for ambulation around room, no AD used. Therapy Code Descriptions/Definitions Functional [place] Measure: 0=Not Assessed/NA 4=Minimal Assistance 1=Total Assistance 5=Supervision or Setup 2=Maximal Assistance 6=Modified [place] 3=Moderate Assistance 7=Complete IndependenceSCALE: Activities may be completed with or without assistive devices. 1-Orpitklsty-nfjotym completes the activity by him/herself with no assistance from a helper. 5-Set-up or Clean-up Assistance-helper sets up or cleans up; patient completes activity. [place] assists only prior to or following the activity. 4-Supervision or Touching Assistance-helper provides verbal cues and/or touching/steadying and/or contact guard assistance as patient completes activity. Assistance may be provided throughout the activity or intermittently. 3-Partial/Moderate Assistance-helper does LESS THAN HALF the effort. [place] lifts, holds or supports trunk or limbs, but provides less than half the effort. 2-Substantial/Maximal Assistance-helper does MORE THAN HALF the effort. [place] lifts or holds trunk or limbs and provides more than half the effort. 9-Bolmphpuv-foweyp does ALL the effort. Patient does none of the effort to complete the activity. Or, the assistance of 2 or more helpers is required for the patient to complete the activity. If activity was not attempted, code reason: 7-Patient Refused. 9-Not Applicable-not attempted and the patient did not perform the activity before the current illness, exacerbation or injury. 10-Not Attempted due to Environmental Limitations-(lack of equipment, weather restraints, etc.). 88-Not Attempted due to Medical Conditions or Safety Concerns. Oral Hygiene (QC): 6 Shower/Bathe Self (QC): 4 Lower Body Dressing (QC): 2 On/Off Footwear: 2 Toileting Hygiene (QC): 4 Toilet Transfer (QC): 4 Other Treatment OT/PT cotreat ([id number]), skills of 2 clinicians required for higher level balance skills during standing and sitting. PT focusing on dynamic standing for transfers, ambulation while OT focusing on pt's ability to complete ADL tasks without LOB when sitting in figure 4 tech or standing during bathing/dressing. Pt does demonstrate LOB toward L side during dynamic sitting while crossing L foot over R knee assist needed to right self. Assist needed to right self when over extending reach in standing toward L side. Pt does have a wide [place] during ambulation typically to assist with balance. After session, pt sitting in recliner with call light/phone in reach. All needs met in room. OT Short Term Goals Short Term Goals Time Frame: Nov 28, 2021 Toileting hygiene: 3 Upper body dressin OT [facility] Goals Design Director Goals Time Frame: Dec 14, 2021 Eating (QC): 5 Oral Hygiene (QC): 5 Toileting Hygiene (QC): 4 Shower/Bathe Self (QC): 4 Upper Body Dressing (QC): 4 Lower Body Dressing (QC): 4 On/Off Footwear (QC): 4 Additional Goals: 1-Demonstrate ADL Tasks, 2-Verbalize Understanding, 3- ImproveStrength/Jose Carlos 1=Demonstrate adherence to instructed precautions during ADL tasks. 2=Patient will verbalize/demonstrate understanding of assistive devices/modifications for ADL. 3=Patient will improve strength/tolerance for activity to enable patient to perform ADL's. OT Education/Plan Problem List/Assessment Assessment: Decreased Activ Tolerance, Impaired Self-Care Skills Discharge Recommendations Plan/Recommendations: Continue POC Treatment Plan/Plan of Care Patient would benefit from OT for education, treatment and training to promote independence in ADL's, mobility, safety and/or upper extremity function for ADL's. Plan of Care: ADL Retraining, Functional Mobility, UE Funct Exercise/Act, UE Neuromus Re-Ed/Coord Treatment Duration: Dec 14, 2021 Frequency: At least 5 of 7 days/Wk (IRF) Estimated Hrs Per Day: 1.5 hours per day Agreement: Yes Rehab Potential: Fair Time/GCodes Start Time: 10:30 Stop Time: 12:00 Total Time Billed (hr/min): 90 Billed Treatment Time 1 visit-ADL 4 (60 min) NM 2 (30 min) co-treat with PT [id number], individual [id number], [id number] AAKASH HODGES Nov 26, 2021 11:56
[2021-11-26] MEDS: TAMSULOSIN 0.4 MG (FLOMAX) CAP PO SCH (16:59)
[2021-11-26 19:25] VITALS: BP 133/62
[2021-11-26] MEDS: ENOXAPARIN 40 MG/0.4 ML (LOVENOX) SYR SC SCH (20:18)
[2021-11-27] MEDS: PANTOPRAZOLE 40 MG (PROTONIX) TAB PO SCH ×2 (05:42→17:29)
--- NOTE | 2021-11-27 06:13 | PM&R Progress Note ---
Subjective HPI/CC On Admission Date Seen by Provider: Nov 27, 2021 Time Seen by Provider: 08:45 Subjective/Events-last exam 11/27/2021: Pt doing well Finishing up on Vancomycin today Discharge is planned for Friday No falls No pain 11/26/2021: Pt doing really well PICC line issues will be managed Vancomycin is still on board for UTI Staph Epidermidis Bp is much improved 11/25/2021: Patient slept last night Urinary frequency continues Vancomycin maintain Monitor closely 11/24/2021: Much improved Nocturia still present disturbing sleep Flomax twice a day tolerated Eating better Feels like he is making progress 11/23/2021: Much improved status Urinary frequency is still present Flomax twice a day Eating better Walking better Motivation good 11/22/2021: Patient much improved Urology change Flomax to twice a day Minimal post void residual Patient feels like he is stronger No falls Reviewed urine culture 11/21/2021: Patient improved We will Hep-Lock IV fluid Patient will focus on dietary consumption Urinary frequency will be addressed by urology No pain is reported Weakness is noted Checked meds and labs Review of Systems General: Fatigue, Malaise Genitourinary: Frequency Neurological: Weakness, Incoordination Objective Exam Vital Signs Vital Signs Date Time Temp Pulse Resp B/P (MAP) Pulse Ox O2 Delivery O2 Flow Rate FiO2 11/27/21 20:01 Room Air 11/27/21 19:51 36.6 83 12 112/58 (76) 91 Capillary Refill : General Appearance: WD/WN, Anxious, Chronically ill, Thin, Other (Frail) HEENT: PERRL/EOMI, Normal ENT Inspection, Pharynx Normal Neck: Full Range of Motion, Normal Inspection, Non Tender, Supple, Carotid Bruit Respiratory: Chest Non Tender, Lungs Clear, No Accessory Muscle Use, No Respiratory Distress, Decreased Breath Sounds Cardiovascular: Regular Rate, Rhythm, No Edema, No Gallop, No JVD, No Murmur, Normal Peripheral Pulses Gastrointestinal: Normal Bowel Sounds, No Organomegaly, No Pulsatile Mass, Non Tender, Soft Back: Normal Inspection, No CVA Tenderness, No Vertebral Tenderness Extremity: Normal Capillary Refill, Normal Inspection, Normal Range of Motion (Left-sided hemiparesis), Non Tender, No Calf Tenderness, No Pedal Edema Neurologic/Psychiatric: Alert, Oriented x3, No Motor/Sensory Deficits, venetian blind tape cutter II-XII Norm as Tested, Abnormal Gait, Depressed Affect, Motor Weakness (Left weakness greater than right but generalized throughout) Skin: Normal Color, Warm/Dry Lymphatic: No Adenopathy Results/Procedures Lab Patient resulted labs reviewed. FIM Transfers Therapy Code Descriptions/Definitions Functional [place] Measure: 0=Not Assessed/NA 4=Minimal Assistance 1=Total Assistance 5=Supervision or Setup 2=Maximal Assistance 6=Modified [place] 3=Moderate Assistance 7=Complete IndependenceSCALE: Activities may be completed with or without assistive devices. 0-Sfhovqjwnf-quiysnv completes the activity by him/herself with no assistance from a helper. 5-Set-up or Clean-up Assistance-helper sets up or cleans up; patient completes activity. [place] assists only prior to or following the activity. 4-Supervision or Touching Assistance-helper provides verbal cues and/or touching/steadying and/or contact guard assistance as patient completes activity. Assistance may be provided throughout the activity or intermittently. 3-Partial/Moderate Assistance-helper does LESS THAN HALF the effort. [place] lifts, holds or supports trunk or limbs, but provides less than half the effort. 2-Substantial/Maximal Assistance-helper does MORE THAN HALF the effort. [place] lifts or holds trunk or limbs and provides more than half the effort. 1-Mprjdxcwm-ifkaxy does ALL the effort. Patient does none of the effort to complete the activity. Or, the assistance of 2 or more helpers is required for the patient to complete the activity. If activity was not attempted, code reason: 7-Patient Refused. 9-Not Applicable-not attempted and the patient did not perform the activity before the current illness, exacerbation or injury. 10-Not Attempted due to Environmental Limitations-(lack of equipment, weather restraints, etc.). 88-Not Attempted due to Medical Conditions or Safety Concerns. Roll Left to Right (QC): 6 Sit to Lying (QC): 6 Sit to Stand (QC): 4 Chair/Wwc-pt-Mejft Xfer(QC): 4 Car Transfer (QC): 3 Gait Training Does the Patient Walk?: Yes Distance: 120'x2 Walk 10 feet (QC): 4 Walk 50 ft with 2 Turns(QC): 4 Walk 150 ft (QC): 4 Walking 10ft/uneven surface-QC: 4 Gait Persons Needed: 1 Gait Assistive Device: Cane Single Point Wheelchair Training Does the Pt Use a Wheelchair?: No Wheel 50 ft with 2 turns (QC): 9 Wheel 150 ft (QC): 9 Stair Training #of Steps: 4 1 Step (curb) (QC): 4 4 Steps (QC): 4 12 Steps (QC): 88 Balance Picking up an Object (QC): 4 (CGA not using a wind turbine performance engineer) ADL-Treatment Eating (QC): 5 Oral Hygiene (QC): 6 Shower/Bathe Self (QC): 4 Upper Body Dressing (QC): 3 (mod A) Lower Body Dressing (QC): 2 On/Off Footwear (QC): 2 Toileting Hygiene (QC): 4 Toilet Transfer (QC): 4 Assessment/Plan Assessment and Plan Assess & Plan/Chief Complaint Patient is assessment: Severe debility and worsening weakness post Covid 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 placed on midodrine Previous stroke with left-sided weakness CAD previous stents Hypertension Hyperlipidemia Prostate cancer Carotid stenosis Urinary frequency Dehydration now resolved after IV fluids GERD Acute UTI coag negative staph started on Vanc and completed treatment Poor nutrition Plan: Supportive care IV fluids Bladder scan Aggressive rehab protocol Dr Valencia consult Vanc empirically 11/21/2021: Vancomycin Hep-Lock IV fluid 11/22/2021: Maintain vancomycin Supportive care 11/23/2021: Vancomycin Supportive care 11/24/2021: Complete vancomycin for UTI 11/25/2021: Vancomycin Supportive care 11/26/2021: Supportive care Complete vancomycin 11/27/2021: Completed vancomycin Supportive care (1) Debility (2) Recurrent syncope Status: Acute (3) Hypotension Status: Acute (4) Prostate cancer Status: Acute (5) Dehydration Status: Acute (6) History of cerebrovascular accident (7) Primary hypertension (8) Mixed hyperlipidemia (9) Orthostatic hypotension Status: Acute (10) Cerebral infarction due to unspecified occlusion or stenosis 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
[2021-11-27 07:29] VITALS: BP 142/65
[2021-11-27] MEDS: FLUDROCORTISONE 0.1 MG (FLORINEF) TAB PO SCH (08:06)
[2021-11-27] MEDS: FAMOTIDINE 20 MG (PEPCID) TABLET PO SCH (08:07)
[2021-11-27] MEDS: MIDODRINE 10 MG (PROAMATINE) TAB PO SCH ×3 (08:07→19:34)
[2021-11-27] MEDS: CLOPIDOGREL 75 MG (PLAVIX) TABLET PO SCH (08:07)
[2021-11-27] MEDS: ASPIRIN E.C. 81 MG (ECOTRIN) TAB PO SCH (08:07)
[2021-11-27] MEDS: DOCUSATE SODIUM 100 MG (COLACE) CAP PO SCH ×2 (08:07→19:35)
[2021-11-27] MEDS: polyethylene glycoL POWDER 17 GM (MIRALAX) PACK PO SCH ×2 (09:23→19:27)
[2021-11-27] MEDS: SENNA W/DOCUSATE (SENOKOT S) TABLET PO SCH ×2 (09:24→19:37)
[2021-11-27] MEDS: CALCIUM CARBONATE 500 MG (TUMS) TAB.CHEW PO PRN ×2 (09:27→22:56)
--- NOTE | 2021-11-27 09:53 | Physical Therapy Daily Note ---
PT Daily Note-Current Subjective Patient in bed pre tx, agrees to PT, has no complaints of pain. Appearance Patient in bed post tx with nurse call, phone, tray, all needs met. Mental Status Patient Orientation: Person, Place, Situation Transfers SCALE: Activities may be completed with or without assistive devices. 5-Svpsbnxjjm-pzdlyms completes the activity by him/herself with no assistance from a helper. 5-Set-up or Clean-up Assistance-helper sets up or cleans up; patient completes activity. [place] assists only prior to or following the activity. 4-Supervision or Touching Assistance-helper provides verbal cues and/or touching/steadying and/or contact guard assistance as patient completes activity. Assistance may be provided throughout the activity or intermittently. 3-Partial/Moderate Assistance-helper does LESS THAN HALF the effort. [place] lifts, holds or supports trunk or limbs, but provides less than half the effort. 2-Substantial/Maximal Assistance-helper does MORE THAN HALF the effort. [place] lifts or holds trunk or limbs and provides more than half the effort. 2-Cdtfkslsm-hhnvls does ALL the effort. Patient does none of the effort to complete the activity. Or, the assistance of 2 or more helpers is required for the patient to complete the activity. If activity was not attempted, code reason: 7-Patient Refused. 9-Not Applicable-not attempted and the patient did not perform the activity before the current illness, exacerbation or injury. 10-Not Attempted due to Environmental Limitations-(lack of equipment, weather restraints, etc.). 88-Not Attempted due to Medical Conditions or Safety Concerns. Roll Left & Right (QC): 6 Sit to Lying (QC): 6 Lying to Sitting/Side of Bed(Q: 6 Sit to Stand (QC): 4 Chair/Zjq-ie-Bqisc Xfer(QC): 4 Toilet Transfer (QC): 4 During tx patient needs to use the restroom, he has a BM, needs assist getting his pants down/up on the left side. Weight Bearing Full Weight Bearing Full Weight Bearing Gait Training Distance: 150', 120'x3 Walk 10 feet (QC): 4 Walk 50 ft with 2 Turns(QC): 4 Walk 150 ft (QC): 4 Gait Assistive Device: Cane Single Point slow ambulation, drifts to the left side Exercises NuStep Minutes: 15 NuStep Workload: 4 Treatments bed mobility and transfers, ambulation, functional strengthening, toileting Assessment Current Status: Fair Progress Patient had some difficulty with dizziness, had to have a couple of sitting rest breaks, he was very tired this morning, his left neglect seemed to be a little worse PT Short Term Goals Short Term Goals Time Frame: Nov 27, 2021 Roll Left & Right: 6 Sit to lyin Lying to sitting on side of be: 6 Sit to stand: 4 (SBA) Chair/ssp-qo-zzkjc transfer: 4 (SBA) Walk 10 feet: 4 (SBA) Walk 50 feet with two turns: 4 (SBA) PT Fdc Goals Fdc Goals PT Press Operator Automatic Goals Time Frame: Dec 11, 2021 Roll Left & Right (QC): 6 Sit to Lying (QC): 6 Lying-Sitting on Side/Bed(QC): 6 Sit to Stand (QC): 5 Chair/Fxe-tw-Hmqyg Xfer(QC): 5 Toilet Transfer (QC): 5 Car Transfer (QC): 5 Does the Patient Walk: Yes Walk 10 feet (QC): 5 Walk 50ft with 2 Turns (QC): 5 Walk 150 ft (QC): 5 Walking 10ft on Uneven Surface: 5 1 Step (curb) (QC): 4 (SBA) 4 Steps (QC): 4 (SBA) 12 Steps (QC): 88 Picking up an Object (QC): 4 (SBA) Wheel 50 feet with 2 turns (QC: 9 Wheel 150 feet: 9 PT Plan Problem List Problem List: Activity Tolerance, Functional Strength, Safety, Balance, Gait, Transfer, Bed Mobility, ROM Treatment/Plan Treatment Plan: Continue Plan of Care Treatment Plan: Bed Mobility, Education, Functional Activity Jose Carlos, Functional Strength, Group Therapy, Gait, Safety, Therapeutic Exercise, Transfers Treatment Duration: Dec 11, 2021 Frequency: At least 5 of 7 days/Wk (IRF) Estimated Hrs Per Day: 1.5 hours per day Patient and/or Family Agrees t: Yes Safety Risks/Education Patient Education: Gait Training, Transfer Techniques, Correct Positioning, Safety Issues Teaching Recipient: Patient Teaching Methods: Demonstration, Discussion Response to Teaching: Reinforcement Needed Time/GCodes Time In: 0900 Time Out: 1000 Total Billed Treatment Time: 60 Total Billed Treatment 1 visit EX 15' FA 45' FELIZ GRIMM PT Nov 27, 2021 09:52
[2021-11-27] MEDS: VANCOMYCIN 1 GM/NS 250 ML IVPB IV SCH ×2 (10:27)
--- NOTE | 2021-11-27 12:01 | Occupational Ther Daily Note ---
OT Current Status-Daily Note Subjective Pt sleeping in bed, woke easily to name. Pt agrees to therapy. No c/o pain only fatigue. Mental Status/Objective Patient Orientation: Person, Place, Time, Situation Attachments: IV ADL-Treatment 1st session([id number]): Pt declines shower, oral care or changing clothing. At end of session, pt requests to use toilet. Independent with toilet transfer. Independent with hygiene and clothing manipulation. After session, pt sitting in recliner with call light/phone in reach. All needs met in room. Therapy Code Descriptions/Definitions Functional [place] Measure: 0=Not Assessed/NA 4=Minimal Assistance 1=Total Assistance 5=Supervision or Setup 2=Maximal Assistance 6=Modified [place] 3=Moderate Assistance 7=Complete IndependenceSCALE: Activities may be completed with or without assistive devices. 7-Tfaqtnwltj-qrwvhav completes the activity by him/herself with no assistance from a helper. 5-Set-up or Clean-up Assistance-helper sets up or cleans up; patient completes activity. [place] assists only prior to or following the activity. 4-Supervision or Touching Assistance-helper provides verbal cues and/or touching/steadying and/or contact guard assistance as patient completes activity. Assistance may be provided throughout the activity or intermittently. 3-Partial/Moderate Assistance-helper does LESS THAN HALF the effort. [place] lifts, holds or supports trunk or limbs, but provides less than half the effort. 2-Substantial/Maximal Assistance-helper does MORE THAN HALF the effort. [place] lifts or holds trunk or limbs and provides more than half the effort. 7-Zrtruhfry-gbxabe does ALL the effort. Patient does none of the effort to complete the activity. Or, the assistance of 2 or more helpers is required for the patient to complete the activity. If activity was not attempted, code reason: 7-Patient Refused. 9-Not Applicable-not attempted and the patient did not perform the activity before the current illness, exacerbation or injury. 10-Not Attempted due to Environmental Limitations-(lack of equipment, weather restraints, etc.). 88-Not Attempted due to Medical Conditions or Safety Concerns. Toileting Hygiene (QC): 6 Toilet Transfer (QC): 6 Other Treatment 2nd session([id number]): Co-treat with PT working with higher level standing balance tasks working towards independence for all ADLs and functional mobility. PT focusing on dynamic standing balance during functional tasks while OT focusing on reaching above head and down to floor in standing to simulate dressing and bathing tasks. Pt required min A due to infrequent LOB during picking items off of floor. Pt was able to complete oral care standing at sink with supervision. After session, pt lying in bed with call light/phone in reach. All needs met in room. OT Short Term Goals Short Term Goals Time Frame: Nov 28, 2021 Toileting hygiene: 3 Upper body dressin OT Paper Box Cutter Goals Jail Goals Time Frame: Dec 14, 2021 Eating (QC): 5 Oral Hygiene (QC): 5 Toileting Hygiene (QC): 4 Shower/Bathe Self (QC): 4 Upper Body Dressing (QC): 4 Lower Body Dressing (QC): 4 On/Off Footwear (QC): 4 Additional Goals: 1-Demonstrate ADL Tasks, 2-Verbalize Understanding, 3- ImproveStrength/Jose Carlos 1=Demonstrate adherence to instructed precautions during ADL tasks. 2=Patient will verbalize/demonstrate understanding of assistive devices/modifications for ADL. 3=Patient will improve strength/tolerance for activity to enable patient to perform ADL's. OT Education/Plan Problem List/Assessment Assessment: Decreased Activ Tolerance, Impaired Self-Care Skills Discharge Recommendations Plan/Recommendations: Continue POC Treatment Plan/Plan of Care Patient would benefit from OT for education, treatment and training to promote independence in ADL's, mobility, safety and/or upper extremity function for ADL's. Plan of Care: ADL Retraining, Functional Mobility, UE Funct Exercise/Act, UE Neuromus Re-Ed/Coord Treatment Duration: Dec 14, 2021 Frequency: At least 5 of 7 days/Wk (IRF) Estimated Hrs Per Day: 1.5 hours per day Agreement: Yes Rehab Potential: Fair Time/GCodes Start Time: 11:00 (1300) Stop Time: 12:00 (1330) Total Time Billed (hr/min): 90 Billed Treatment Time 1 visit([id number]): ADL 1 (10 min) NM 3 (50 min) 1 visit-([id number]): ADL 1 (10 min) FA 1 (20 min) co-treat with PT [id number] AAKASH HODGES Nov 27, 2021 12:01
--- NOTE | 2021-11-27 13:32 | Physical Therapy Daily Note ---
PT Daily Note-Current Subjective Patient in recliner pre tx, agrees to PT, has no complaints of pain at rest. Will be co-treating with OT due to poor patient mobility, strength, endurance, left hemiparesis, coordinate UE and LE during activity, safety and reduce risk of falls, and to work on more advanced balance activities. Appearance Patient in bed post tx with nurse call, phone, tray, all needs met. Mental Status Patient Orientation: Person, Place, Situation Transfers SCALE: Activities may be completed with or without assistive devices. 9-Irmfzgsddp-sagynsh completes the activity by him/herself with no assistance from a helper. 5-Set-up or Clean-up Assistance-helper sets up or cleans up; patient completes activity. [place] assists only prior to or following the activity. 4-Supervision or Touching Assistance-helper provides verbal cues and/or touching/steadying and/or contact guard assistance as patient completes activity. Assistance may be provided throughout the activity or intermittently. 3-Partial/Moderate Assistance-helper does LESS THAN HALF the effort. [place] lifts, holds or supports trunk or limbs, but provides less than half the effort. 2-Substantial/Maximal Assistance-helper does MORE THAN HALF the effort. [place] lifts or holds trunk or limbs and provides more than half the effort. 3-Alsdtfmci-aawiap does ALL the effort. Patient does none of the effort to complete the activity. Or, the assistance of 2 or more helpers is required for the patient to complete the activity. If activity was not attempted, code reason: 7-Patient Refused. 9-Not Applicable-not attempted and the patient did not perform the activity befo re the current illness, exacerbation or injury. 10-Not Attempted due to Environmental Limitations-(lack of equipment, weather re straints, etc.). 88-Not Attempted due to Medical Conditions or Safety Concerns. Roll Left & Right (QC): 6 Sit to Lying (QC): 6 Sit to Stand (QC): 4 Chair/Fdj-fk-Knjyp Xfer(QC): 4 After getting out of recliner patient ambulated to the restroom to brush teeth and then ambulated to the therapy gym. Weight Bearing Full Weight Bearing Full Weight Bearing Gait Training Distance: 120'x2 Walk 10 feet (QC): 4 Walk 50 ft with 2 Turns(QC): 4 Gait Persons Needed: 1 Gait Assistive Device: Cane Single Point slow ambulation, left neglect Exercises standing balance activities with moving rings and activity picking up beanbags off the floor and turning and ambulating to put them in a specific place. Treatments PT performed bed mobility and transfers, ambulation, balance training, OT performed ADL's, UE positioning and safety during activity, balance activity Assessment Current Status: Fair Progress patient still has unsteady moments during ambulation, especially with turning PT Short Term Goals Short Term Goals Time Frame: Nov 27, 2021 Roll Left & Right: 6 Sit to lyin Lying to sitting on side of be: 6 Sit to stand: 4 (SBA) Chair/aoc-qz-mgyed transfer: 4 (SBA) Walk 10 feet: 4 (SBA) Walk 50 feet with two turns: 4 (SBA) PT Skilled Nursing Goals Clamshell Engineer Goals PT Skilled Nursing Goals Time Frame: Dec 11, 2021 Roll Left & Right (QC): 6 Sit to Lying (QC): 6 Lying-Sitting on Side/Bed(QC): 6 Sit to Stand (QC): 5 Chair/Zuf-lx-Vfjoq Xfer(QC): 5 Toilet Transfer (QC): 5 Car Transfer (QC): 5 Does the Patient Walk: Yes Walk 10 feet (QC): 5 Walk 50ft with 2 Turns (QC): 5 Walk 150 ft (QC): 5 Walking 10ft on Uneven Surface: 5 1 Step (curb) (QC): 4 (SBA) 4 Steps (QC): 4 (SBA) 12 Steps (QC): 88 Picking up an Object (QC): 4 (SBA) Wheel 50 feet with 2 turns (QC: 9 Wheel 150 feet: 9 PT Plan Problem List Problem List: Activity Tolerance, Functional Strength, Safety, Balance, Gait, Transfer, Bed Mobility, ROM Treatment/Plan Treatment Plan: Continue Plan of Care Treatment Plan: Bed Mobility, Education, Functional Activity Jose Carlos, Functional Strength, Group Therapy, Gait, Safety, Therapeutic Exercise, Transfers Treatment Duration: Dec 11, 2021 Frequency: At least 5 of 7 days/Wk (IRF) Estimated Hrs Per Day: 1.5 hours per day Patient and/or Family Agrees t: Yes Safety Risks/Education Patient Education: Gait Training, Transfer Techniques, Correct Positioning, Safety Issues Teaching Recipient: Patient Teaching Methods: Demonstration, Discussion Response to Teaching: Reinforcement Needed Time/GCodes Time In: 1300 Time Out: 1330 Total Billed Treatment Time: 30 Total Billed Treatment 1 visit FA 10' NM 20' co-treated for 30' FELIZ GRIMM PT Nov 27, 2021 13:32
[2021-11-27] MEDS: TAMSULOSIN 0.4 MG (FLOMAX) CAP PO SCH (17:29)
[2021-11-27] MEDS: ENOXAPARIN 40 MG/0.4 ML (LOVENOX) SYR SC SCH (19:36)
[2021-11-27 19:51] VITALS: BP 112/58
[2021-11-28] MEDS: PANTOPRAZOLE 40 MG (PROTONIX) TAB PO SCH ×2 (06:28→17:08)
[2021-11-28] MEDS: ASPIRIN E.C. 81 MG (ECOTRIN) TAB PO SCH (07:56)
[2021-11-28] MEDS: CLOPIDOGREL 75 MG (PLAVIX) TABLET PO SCH (07:56)
[2021-11-28] MEDS: DOCUSATE SODIUM 100 MG (COLACE) CAP PO SCH ×2 (07:56→19:16)
[2021-11-28] MEDS: FLUDROCORTISONE 0.1 MG (FLORINEF) TAB PO SCH (07:56)
[2021-11-28] MEDS: MIDODRINE 10 MG (PROAMATINE) TAB PO SCH ×3 (07:56→20:14)
[2021-11-28] MEDS: FAMOTIDINE 20 MG (PEPCID) TABLET PO SCH (07:57)
[2021-11-28] MEDS: polyethylene glycoL POWDER 17 GM (MIRALAX) PACK PO SCH ×2 (07:57→19:16)
[2021-11-28] MEDS: SENNA W/DOCUSATE (SENOKOT S) TABLET PO SCH ×2 (07:57→19:16)
[2021-11-28 08:00] VITALS: BP 111/56
--- NOTE | 2021-11-28 09:28 | Occupational Ther Daily Note ---
OT Current Status-Daily Note Subjective Pt alert, lying in bed. Pt anxious about constipation, reported to nrsg. Pt became dizzy during session, laid back down in bed. Mental Status/Objective Patient Orientation: Person, Place, Time, Situation Attachments: IV (PICC) ADL-Treatment 1st session([id number]): Independent with toileting. Sitting at sink, pt independent with oral care. Pt then became dizzy and required assistance to ambulate to bed for safety then laid down in bed. Reported to nrsg. After therapy, pt lying in bed with call light/phone in reach. All needs met in room. 2nd session([id number]): Pt c/o being fatigue due to going to the bathroom a lot during the night and this morning. Pt does agree to work on dressing. Pt has tendency to pull clothing until an extremity finds a hole in the clothing. Pt requires verbal cues on when to stop and look at how clothing is positioned throughout dressing process. Pt is able to physically complete clothes with this instruction. Pt independent with toileting though fatigues quickly. Pt able to doff socks then needs assistance to get socks over toes then can don the rest of the way. Pt is independent with bed mobility. After session, pt lying in bed with call light/phone in reach. All needs met in room. Therapy Code Descriptions/Definitions Functional [place] Measure: 0=Not Assessed/NA 4=Minimal Assistance 1=Total Assistance 5=Supervision or Setup 2=Maximal Assistance 6=Modified [place] 3=Moderate Assistance 7=Complete IndependenceSCALE: Activities may be completed with or without assistive devices. 3-Krldxpqdlz-mekeorl completes the activity by him/herself with no assistance from a helper. 5-Set-up or Clean-up Assistance-helper sets up or cleans up; patient completes activity. [place] assists only prior to or following the activity. 4-Supervision or Touching Assistance-helper provides verbal cues and/or touching/steadying and/or contact guard assistance as patient completes activity. Assistance may be provided throughout the activity or intermittently. 3-Partial/Moderate Assistance-helper does LESS THAN HALF the effort. [place] lifts, holds or supports trunk or limbs, but provides less than half the effort. 2-Substantial/Maximal Assistance-helper does MORE THAN HALF the effort. [place] lifts or holds trunk or limbs and provides more than half the effort. 3-Sywnbjqch-llkjye does ALL the effort. Patient does none of the effort to complete the activity. Or, the assistance of 2 or more helpers is required for the patient to complete the activity. If activity was not attempted, code reason: 7-Patient Refused. 9-Not Applicable-not attempted and the patient did not perform the activity before the current illness, exacerbation or injury. 10-Not Attempted due to Environmental Limitations-(lack of equipment, weather restraints, etc.). 88-Not Attempted due to Medical Conditions or Safety Concerns. Eating (QC): 5 Oral Hygiene (QC): 6 Toileting Hygiene (QC): 6 Toilet Transfer (QC): 6 OT Short Term Goals Short Term Goals Time Frame: Nov 28, 2021 Toileting hygiene: 3 Upper body dressin OT Scrum Project Manager Goals Scrum Project Manager Goals Time Frame: Dec 14, 2021 Eating (QC): 5 Oral Hygiene (QC): 5 Toileting Hygiene (QC): 4 Shower/Bathe Self (QC): 4 Upper Body Dressing (QC): 4 Lower Body Dressing (QC): 4 On/Off Footwear (QC): 4 Additional Goals: 1-Demonstrate ADL Tasks, 2-Verbalize Understanding, 3- ImproveStrength/Jose Carlos 1=Demonstrate adherence to instructed precautions during ADL tasks. 2=Patient will verbalize/demonstrate understanding of assistive devices/modifications for ADL. 3=Patient will improve strength/tolerance for activity to enable patient to perform ADL's. OT Education/Plan Problem List/Assessment Assessment: Decreased Activ Tolerance, Decreased UE Strength, Impaired Self- Care Skills, Restricted Funct UE ROM, Visual-Perceptual Deficit Discharge Recommendations Plan/Recommendations: Continue POC Treatment Plan/Plan of Care Patient would benefit from OT for education, treatment and training to promote independence in ADL's, mobility, safety and/or upper extremity function for ADL's. Plan of Care: ADL Retraining, Functional Mobility, UE Funct Exercise/Act, UE Neuromus Re-Ed/Coord Treatment Duration: Dec 14, 2021 Frequency: At least 5 of 7 days/Wk (IRF) Estimated Hrs Per Day: 1.5 hours per day Agreement: Yes Rehab Potential: Fair Time/GCodes Start Time: 07:30 (1007) Stop Time: 08:00 (1107) Total Time Billed (hr/min): 90 Billed Treatment Time 1 visit([id number]): ADL 2 (30 min) 1 visit([id number]): ADL 4 (30 min) AAKASH HODGES Nov 28, 2021 09:28
--- NOTE | 2021-11-28 09:56 | Physical Therapy Daily Note ---
PT Daily Note-Current Subjective Pt. agrees to Rx with encouragement . Pt. c/o he is having bowel issues and needs to have a BM and is a little leary of going out of his room but agrees to idea of wearing a brief so he wouldnt have to worry about a mess. No c/o pain, very talkative and pleasant once he started therapy. Pt. requested a coke and states it usually makes him go to the [facility]. Pain Location: No Pain Reported Mental Status Patient Orientation: Normal For Age Transfers SCALE: Activities may be completed with or without assistive devices. 1-Ltagkauhac-ivfpoia completes the activity by him/herself with no assistance from a helper. 5-Set-up or Clean-up Assistance-helper sets up or cleans up; patient completes activity. [place] assists only prior to or following the activity. 4-Supervision or Touching Assistance-helper provides verbal cues and/or touchi ng/steadying and/or contact guard assistance as patient completes activity. Assistance may be provided throughout the activity or intermittently. 3-Partial/Moderate Assistance-helper does LESS THAN HALF the effort. [place] lifts, holds or supports trunk or limbs, but provides less than half the effort. 2-Substantial/Maximal Assistance-helper does MORE THAN HALF the effort. [place] lifts or holds trunk or limbs and provides more than half the effort. 9-Mtmmllbuk-gcyjsu does ALL the effort. Patient does none of the effort to complete the activity. Or, the assistance of 2 or more helpers is required for the patient to complete the activity. If activity was not attempted, code reason: 7-Patient Refused. 9-Not Applicable-not attempted and the patient did not perform the activity before the current illness, exacerbation or injury. 10-Not Attempted due to Environmental Limitations-(lack of equipment, weather restraints, etc.). 88-Not Attempted due to Medical Conditions or Safety Concerns. Lying to Sitting/Side of Bed(Q: 6 Sit to Stand (QC): 4 stand to sit work done as pt. tends to sit before LEs are touching the chair, improved with work Weight Bearing Full Weight Bearing Full Weight Bearing Gait Training Does the Patient Walk?: Yes Walk 10 feet (QC): 4 Walk 50 ft with 2 Turns(QC): 4 Walk 150 ft (QC): 4 Gait Persons Needed: 1 Gait Assistive Device: Cane Single Point gait with decreased step length but fairly equal,pt. with left neglect runs in to objects x 2 needing guidance to avoid objects on left. No LOB. gait on carpet in smaller area simulating home with pt. managing this well Exercises Seated Therapy Exercises: Ankle pumps, Sit to stand, Long arc quads, Hip flexion, Hip abd/add Seated Reps: 15 NuStep Minutes: 11 NuStep Workload: 3 Treatments sup to sit at EOB , sit to stand and shorts and underwear doffed, brief and shorts donned with mod assist, gait, LE ex, Nustep, Assessment Current Status: Good Progress PT Short Term Goals Short Term Goals Time Frame: Nov 27, 2021 Roll Left & Right: 6 Sit to lyin Lying to sitting on side of be: 6 Sit to stand: 4 (SBA) Chair/uzf-gw-auofx transfer: 4 (SBA) Walk 10 feet: 4 (SBA) Walk 50 feet with two turns: 4 (SBA) PT Shelter Goals Natural Fabricator Goals PT Natural Fabricator Goals Time Frame: Dec 11, 2021 Roll Left & Right (QC): 6 Sit to Lying (QC): 6 Lying-Sitting on Side/Bed(QC): 6 Sit to Stand (QC): 5 Chair/Kqo-xq-Ndwai Xfer(QC): 5 Toilet Transfer (QC): 5 Car Transfer (QC): 5 Does the Patient Walk: Yes Walk 10 feet (QC): 5 Walk 50ft with 2 Turns (QC): 5 Walk 150 ft (QC): 5 Walking 10ft on Uneven Surface: 5 1 Step (curb) (QC): 4 (SBA) 4 Steps (QC): 4 (SBA) 12 Steps (QC): 88 Picking up an Object (QC): 4 (SBA) Wheel 50 feet with 2 turns (QC: 9 Wheel 150 feet: 9 PT Plan Treatment/Plan Treatment Plan: Continue Plan of Care Treatment Plan: Bed Mobility, Education, Functional Activity Jose Carlos, Functional Strength, Group Therapy, Gait, Safety, Therapeutic Exercise, Transfers Treatment Duration: Dec 11, 2021 Frequency: At least 5 of 7 days/Wk (IRF) Estimated Hrs Per Day: 1.5 hours per day Patient and/or Family Agrees t: Yes Safety Risks/Education Patient Education: Gait Training, Transfer Techniques, Correct Positioning, Disease Process, Safety Issues Teaching Recipient: Patient Teaching Methods: Demonstration, Discussion Response to Teaching: Verbalize Understanding, Return Demonstration, Reinforcement Needed Time/GCodes Time In: 900 Time Out: 1000 Total Billed Treatment Time: 60 Total Billed Treatment 1,GT25m,EX20m,FA15m MIKE MCKNIGHT 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
--- NOTE | 2021-11-28 11:13 | PM&R Progress Note ---
Subjective HPI/CC On Admission Date Seen by Provider: Nov 28, 2021 Time Seen by Provider: 12:00 Subjective/Events-last exam 11/28/2021: Pt doing really well Drinking and eating fairly well He is building up his reserve pretty well Discharge planned for Friday11/27/2021: Pt doing well Finishing up on Vancomycin today Discharge is planned for Friday No falls No pain 11/26/2021: Pt doing really well PICC line issues will be managed Vancomycin is still on board for UTI Staph Epidermidis Bp is much improved 11/25/2021: Patient slept last night Urinary frequency continues Vancomycin maintain Monitor closely 11/24/2021: Much improved Nocturia still present disturbing sleep Flomax twice a day tolerated Eating better Feels like he is making progress 11/23/2021: Much improved status Urinary frequency is still present Flomax twice a day Eating better Walking better Motivation good 11/22/2021: Patient much improved Urology change Flomax to twice a day Minimal post void residual Patient feels like he is stronger No falls Reviewed urine culture 11/21/2021: Patient improved We will Hep-Lock IV fluid Patient will focus on dietary consumption Urinary frequency will be addressed by urology No pain is reported Weakness is noted Checked meds and labs Review of Systems General: Fatigue, Malaise Neurological: Weakness Objective Exam Vital Signs Vital Signs Date Time Temp Pulse Resp B/P (MAP) Pulse Ox O2 Delivery O2 Flow Rate FiO2 11/28/21 20:00 Room Air 11/28/21 19:45 36.2 86 16 115/59 (77) 91 Capillary Refill : General Appearance: WD/WN, Anxious, Chronically ill, Thin, Other (Frail) HEENT: PERRL/EOMI, Normal ENT Inspection, Pharynx Normal Neck: Full Range of Motion, Normal Inspection, Non Tender, Supple, Carotid Bruit Respiratory: Chest Non Tender, Lungs Clear, No Accessory Muscle Use, No Respiratory Distress, Decreased Breath Sounds Cardiovascular: Regular Rate, Rhythm, No Edema, No Gallop, No JVD, No Murmur, Normal Peripheral Pulses Gastrointestinal: Normal Bowel Sounds, No Organomegaly, No Pulsatile Mass, Non Tender, Soft Back: Normal Inspection, No CVA Tenderness, No Vertebral Tenderness Extremity: Normal Capillary Refill, Normal Inspection, Normal Range of Motion (Left-sided hemiparesis), Non Tender, No Calf Tenderness, No Pedal Edema Neurologic/Psychiatric: Alert, Oriented x3, No Motor/Sensory Deficits, second baker II- XII Norm as Tested, Abnormal Gait, Depressed Affect, Motor Weakness (Left weakness greater than right but generalized throughout) Skin: Normal Color, Warm/Dry Lymphatic: No Adenopathy Results/Procedures Lab Patient resulted labs reviewed. FIM Transfers Therapy Code Descriptions/Definitions Functional [place] Measure: 0=Not Assessed/NA 4=Minimal Assistance 1=Total Assistance 5=Supervision or Setup 2=Maximal Assistance 6=Modified [place] 3=Moderate Assistance 7=Complete IndependenceSCALE: Activities may be completed with or without assistive devices. 8-Depyugucjo-xvnthnz completes the activity by him/herself with no assistance from a helper. 5-Set-up or Clean-up Assistance-helper sets up or cleans up; patient completes activity. [place] assists only prior to or following the activity. 4-Supervision or Touching Assistance-helper provides verbal cues and/or touching/steadying and/or contact guard assistance as patient completes activity. Assistance may be provided throughout the activity or intermittently. 3-Partial/Moderate Assistance-helper does LESS THAN HALF the effort. [place] lifts, holds or supports trunk or limbs, but provides less than half the effort. 2-Substantial/Maximal Assistance-helper does MORE THAN HALF the effort. [place] lifts or holds trunk or limbs and provides more than half the effort. 2-Wkadegusw-nokico does ALL the effort. Patient does none of the effort to complete the activity. Or, the assistance of 2 or more helpers is required for the patient to complete the activity. If activity was not attempted, code reason: 7-Patient Refused. 9-Not Applicable-not attempted and the patient did not perform the activity before the current illness, exacerbation or injury. 10-Not Attempted due to Environmental Limitations-(lack of equipment, weather restraints, etc.). 88-Not Attempted due to Medical Conditions or Safety Concerns. Roll Left to Right (QC): 6 Sit to Lying (QC): 6 Sit to Stand (QC): 4 Chair/Ptu-bs-Vsyqg Xfer(QC): 4 Car Transfer (QC): 3 Gait Training Does the Patient Walk?: Yes Distance: 120'x2 Walk 10 feet (QC): 4 Walk 50 ft with 2 Turns(QC): 4 Walk 150 ft (QC): 4 Walking 10ft/uneven surface-QC: 4 Gait Persons Needed: 1 Gait Assistive Device: Cane Single Point Wheelchair Training Does the Pt Use a Wheelchair?: No Wheel 50 ft with 2 turns (QC): 9 Wheel 150 ft (QC): 9 Stair Training #of Steps: 4 1 Step (curb) (QC): 4 4 Steps (QC): 4 12 Steps (QC): 88 Balance Picking up an Object (QC): 4 (CGA not using a water vessel captain) ADL-Treatment Eating (QC): 5 Oral Hygiene (QC): 6 Shower/Bathe Self (QC): 4 Upper Body Dressing (QC): 3 (mod A) Lower Body Dressing (QC): 2 On/Off Footwear (QC): 2 Toileting Hygiene (QC): 6 Toilet Transfer (QC): 6 Assessment/Plan Assessment and Plan Assess & Plan/Chief Complaint Patient is assessment: Severe debility and worsening weakness post Covid 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 placed on midodrine Previous stroke with left-sided weakness CAD previous stents Hypertension Hyperlipidemia Prostate cancer Carotid stenosis Urinary frequency Dehydration now resolved after IV fluids GERD Acute UTI coag negative staph started on Vanc and completed treatment Poor nutrition Plan: Supportive care IV fluids Bladder scan Aggressive rehab protocol Dr Valencia consult Vanc empirically 11/21/2021: Vancomycin Hep-Lock IV fluid 11/22/2021: Maintain vancomycin Supportive care 11/23/2021: Vancomycin Supportive care 11/24/2021: Complete vancomycin for UTI 11/25/2021: Vancomycin Supportive care 11/26/2021: Supportive care Complete vancomycin 11/27/2021: Completed vancomycin Supportive care 11/28/2021: Discharge on Friday (1) Debility (2) Recurrent syncope Status: Acute (3) Hypotension Status: Acute (4) Prostate cancer Status: Acute (5) Dehydration Status: Acute (6) History of cerebrovascular accident (7) Primary hypertension (8) Mixed hyperlipidemia (9) Orthostatic hypotension Status: Acute (10) Cerebral infarction due to unspecified occlusion or stenosis 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
--- NOTE | 2021-11-28 11:59 | Physical Therapy Daily Note ---
PT Daily Note-Current Subjective Pt. in bed, had agreed earlier to step training or car TRF training but now says he is so tired and would rather do bed ex. "I have done those steps so many times, that car TRF too". Pt. states he is suppose to go home on Sat and hopes he is ready Pain Location: No Pain Reported Mental Status Patient Orientation: Normal For Age Transfers SCALE: Activities may be completed with or without assistive devices. 6-Puufjkaudw-cskkvkj completes the activity by him/herself with no assistance from a helper. 5-Set-up or Clean-up Assistance-helper sets up or cleans up; patient completes activity. [place] assists only prior to or following the activity. 4-Supervision or Touching Assistance-helper provides verbal cues and/or touching/steadying and/or contact guard assistance as patient completes activity. Assistance may be provided throughout the activity or intermittently. 3-Partial/Moderate Assistance-helper does LESS THAN HALF the effort. [place] lifts, holds or supports trunk or limbs, but provides less than half the effort. 2-Substantial/Maximal Assistance-helper does MORE THAN HALF the effort. [place] lifts or holds trunk or limbs and provides more than half the effort. 9-Kpwdrqvvr-htpcel does ALL the effort. Patient does none of the effort to complete the activity. Or, the assistance of 2 or more helpers is required for the patient to complete the activity. If activity was not attempted, code reason: 7-Patient Refused. 9-Not Applicable-not attempted and the patient did not perform the activity before the current illness, exacerbation or injury. 10-Not Attempted due to Environmental Limitations-(lack of equipment, weather restraints, etc.). 88-Not Attempted due to Medical Conditions or Safety Concerns. Roll Left & Right (QC): 6 Weight Bearing Full Weight Bearing Full Weight Bearing Exercises Supine Ex: Bridging, Ankle pumps, Quad Set, Rolling, Glut sets, Heel Slides, Short Arc Quads, Scooting, Straight leg raise, Hip abd/add Supine Reps: 20 Treatments bed mob, LE therex with rest breaks Assessment Current Status: Good Progress PT Short Term Goals Short Term Goals Time Frame: Nov 27, 2021 Roll Left & Right: 6 Sit to lyin Lying to sitting on side of be: 6 Sit to stand: 4 (SBA) Chair/bem-fb-zutcq transfer: 4 (SBA) Walk 10 feet: 4 (SBA) Walk 50 feet with two turns: 4 (SBA) PT Chcf Goals Chcf Goals PT Char Conveyor Tender Goals Time Frame: Dec 11, 2021 Roll Left & Right (QC): 6 Sit to Lying (QC): 6 Lying-Sitting on Side/Bed(QC): 6 Sit to Stand (QC): 5 Chair/Vor-nv-Guzqc Xfer(QC): 5 Toilet Transfer (QC): 5 Car Transfer (QC): 5 Does the Patient Walk: Yes Walk 10 feet (QC): 5 Walk 50ft with 2 Turns (QC): 5 Walk 150 ft (QC): 5 Walking 10ft on Uneven Surface: 5 1 Step (curb) (QC): 4 (SBA) 4 Steps (QC): 4 (SBA) 12 Steps (QC): 88 Picking up an Object (QC): 4 (SBA) Wheel 50 feet with 2 turns (QC: 9 Wheel 150 feet: 9 PT Plan Treatment/Plan Treatment Plan: Continue Plan of Care Treatment Plan: Bed Mobility, Education, Functional Activity Jose Carlos, Functional Strength, Group Therapy, Gait, Safety, Therapeutic Exercise, Transfers Treatment Duration: Dec 11, 2021 Frequency: At least 5 of 7 days/Wk (IRF) Estimated Hrs Per Day: 1.5 hours per day Patient and/or Family Agrees t: Yes Safety Risks/Education Patient Education: Correct Positioning Time/GCodes Time In: 1130 Time Out: 1200 Total Billed Treatment Time: 30 Total Billed Treatment 1, EX30m MIKE MCKNIGHT PTA Nov 28, 2021 11:59
[2021-11-28] MEDS: TAMSULOSIN 0.4 MG (FLOMAX) CAP PO SCH (17:08)
[2021-11-28 19:45] VITALS: BP 115/59
[2021-11-28] MEDS: ENOXAPARIN 40 MG/0.4 ML (LOVENOX) SYR SC SCH (20:14)
[2021-11-28] MEDS: ACETAMINOPHEN 325 MG TABLET PO PRN (23:07)
--- NOTE | 2021-11-29 06:12 | PM&R Progress Note ---
Subjective HPI/CC On Admission Date Seen by Provider: Nov 29, 2021 Time Seen by Provider: 09:30 Subjective/Events-last exam 11/29/2021: Pt doing really well Denies any significant new problems Got a little bit of rest last night Bowels moved yesterday Bladder scan reveals no post void residual 11/28/2021: Pt doing really well Drinking and eating fairly well He is building up his reserve pretty well Discharge planned for Friday11/27/2021: Pt doing well Finishing up on Vancomycin today Discharge is planned for Friday No falls No pain 11/26/2021: Pt doing really well PICC line issues will be managed Vancomycin is still on board for UTI Staph Epidermidis Bp is much improved 11/25/2021: Patient slept last night Urinary frequency continues Vancomycin maintain Monitor closely 11/24/2021: Much improved Nocturia still present disturbing sleep Flomax twice a day tolerated Eating better Feels like he is making progress 11/23/2021: Much improved status Urinary frequency is still present Flomax twice a day Eating better Walking better Motivation good 11/22/2021: Patient much improved Urology change Flomax to twice a day Minimal post void residual Patient feels like he is stronger No falls Reviewed urine culture 11/21/2021: Patient improved We will Hep-Lock IV fluid Patient will focus on dietary consumption Urinary frequency will be addressed by urology No pain is reported Weakness is noted Checked meds and labs Review of Systems General: Fatigue, Malaise Genitourinary: Frequency Neurological: Weakness, Incoordination Objective Exam Vital Signs Vital Signs Date Time Temp Pulse Resp B/P (MAP) Pulse Ox O2 Delivery O2 Flow Rate FiO2 11/29/21 21:00 92 Room Air 11/29/21 20:00 36.8 84 18 148/75 (99) Capillary Refill : General Appearance: WD/WN, Anxious, Chronically ill, Thin, Other (Frail) HEENT: PERRL/EOMI, Normal ENT Inspection, Pharynx Normal Neck: Full Range of Motion, Normal Inspection, Non Tender, Supple, Carotid Bruit Respiratory: Chest Non Tender, Lungs Clear, No Accessory Muscle Use, No Respiratory Distress, Decreased Breath Sounds Cardiovascular: Regular Rate, Rhythm, No Edema, No Gallop, No JVD, No Murmur, Normal Peripheral Pulses Gastrointestinal: Normal Bowel Sounds, No Organomegaly, No Pulsatile Mass, Non Tender, Soft Back: Normal Inspection, No CVA Tenderness, No Vertebral Tenderness Extremity: Normal Capillary Refill, Normal Inspection, Normal Range of Motion (Left-sided hemiparesis), Non Tender, No Calf Tenderness, No Pedal Edema Neurologic/Psychiatric: Alert, Oriented x3, No Motor/Sensory Deficits, manager field investigations II- XII Norm as Tested, Abnormal Gait, Depressed Affect, Motor Weakness (Left weakness greater than right but generalized throughout) Skin: Normal Color, Warm/Dry Lymphatic: No Adenopathy Results/Procedures Lab Patient resulted labs reviewed. FIM Transfers Therapy Code Descriptions/Definitions Functional [place] Measure: 0=Not Assessed/NA 4=Minimal Assistance 1=Total Assistance 5=Supervision or Setup 2=Maximal Assistance 6=Modified [place] 3=Moderate Assistance 7=Complete IndependenceSCALE: Activities may be completed with or without assistive devices. 5-Jjfqzlbhtk-fnbncjm completes the activity by him/herself with no assistance from a helper. 5-Set-up or Clean-up Assistance-helper sets up or cleans up; patient completes activity. [place] assists only prior to or following the activity. 4-Supervision or Touching Assistance-helper provides verbal cues and/or touching/steadying and/or contact guard assistance as patient completes activity. Assistance may be provided throughout the activity or intermittently. 3-Partial/Moderate Assistance-helper does LESS THAN HALF the effort. [place] lifts, holds or supports trunk or limbs, but provides less than half the effort. 2-Substantial/Maximal Assistance-helper does MORE THAN HALF the effort. [place] lifts or holds trunk or limbs and provides more than half the effort. 5-Byonhkqao-fbdjdb does ALL the effort. Patient does none of the effort to complete the activity. Or, the assistance of 2 or more helpers is required for the patient to complete the activity. If activity was not attempted, code reason: 7-Patient Refused. 9-Not Applicable-not attempted and the patient did not perform the activity before the current illness, exacerbation or injury. 10-Not Attempted due to Environmental Limitations-(lack of equipment, weather restraints, etc.). 88-Not Attempted due to Medical Conditions or Safety Concerns. Roll Left to Right (QC): 6 Sit to Lying (QC): 6 Sit to Stand (QC): 4 Chair/Vng-fl-Lhcpx Xfer(QC): 4 Car Transfer (QC): 3 Gait Training Does the Patient Walk?: Yes Distance: 120'x2 Walk 10 feet (QC): 4 Walk 50 ft with 2 Turns(QC): 4 Walk 150 ft (QC): 4 Walking 10ft/uneven surface-QC: 4 Gait Persons Needed: 1 Gait Assistive Device: Cane Single Point Wheelchair Training Does the Pt Use a Wheelchair?: No Wheel 50 ft with 2 turns (QC): 9 Wheel 150 ft (QC): 9 Stair Training #of Steps: 4 1 Step (curb) (QC): 4 4 Steps (QC): 4 12 Steps (QC): 88 Balance Picking up an Object (QC): 4 (CGA not using a decal transferrer) ADL-Treatment Eating (QC): 5 Oral Hygiene (QC): 6 Shower/Bathe Self (QC): 4 Upper Body Dressing (QC): 3 (mod A) Lower Body Dressing (QC): 2 On/Off Footwear (QC): 2 Toileting Hygiene (QC): 6 Toilet Transfer (QC): 6 Assessment/Plan Assessment and Plan Assess & Plan/Chief Complaint Patient is assessment: Severe debility and worsening weakness post Covid 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 placed on midodrine Previous stroke with left-sided weakness CAD previous stents Hypertension Hyperlipidemia Prostate cancer Carotid stenosis Urinary frequency Dehydration now resolved after IV fluids GERD Acute UTI coag negative staph started on Vanc and completed treatment Poor nutrition Plan: Supportive care IV fluids Bladder scan Aggressive rehab protocol Dr Valencia consult Vanc empirically 11/21/2021: Vancomycin Hep-Lock IV fluid 11/22/2021: Maintain vancomycin Supportive care 11/23/2021: Vancomycin Supportive care 11/24/2021: Complete vancomycin for UTI 11/25/2021: Vancomycin Supportive care 11/26/2021: Supportive care Complete vancomycin 11/27/2021: Completed vancomycin Supportive care 11/28/2021: Discharge on Friday11/29/2021: Patient much improved Discharge Friday (1) Debility (2) Recurrent syncope Status: Acute (3) Hypotension Status: Acute (4) Prostate cancer Status: Acute (5) Dehydration Status: Acute (6) History of cerebrovascular accident (7) Primary hypertension (8) Mixed hyperlipidemia (9) Orthostatic hypotension Status: Acute (10) 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
[2021-11-29] MEDS: PANTOPRAZOLE 40 MG (PROTONIX) TAB PO SCH ×2 (06:30→16:14)
[2021-11-29 07:32] VITALS: BP 142/74
--- NOTE | 2021-11-29 07:58 | Occupational Ther Daily Note ---
OT Current Status-Daily Note Subjective Pt alert, sitting up in bed. Pt agrees to therapy. No c/o pain. Mental Status/Objective Patient Orientation: Person, Place, Time, Situation Attachments: IV ([facility]) ADL-Treatment 1st session(): Pt able to complete eating after set up. Pt then requested to use bathroom. Independent with toilet transfer and toileting. 2nd session([id number]): Pt ambulates to bathroom without AD independently. Completes toileting independently. Standing at sink then tiring used chair to finish grooming and oral care independently. Therapy Code Descriptions/Definitions Functional [place] Measure: 0=Not Assessed/NA 4=Minimal Assistance 1=Total Assistance 5=Supervision or Setup 2=Maximal Assistance 6=Modified [place] 3=Moderate Assistance 7=Complete IndependenceSCALE: Activities may be completed with or without assistive devices. 3-Eqpvokapsi-nnervna completes the activity by him/herself with no assistance from a helper. 5-Set-up or Clean-up Assistance-helper sets up or cleans up; patient completes activity. [place] assists only prior to or following the activity. 4-Supervision or Touching Assistance-helper provides verbal cues and/or touching/steadying and/or contact guard assistance as patient completes activity. Assistance may be provided throughout the activity or intermittently. 3-Partial/Moderate Assistance-helper does LESS THAN HALF the effort. [place] lifts, holds or supports trunk or limbs, but provides less than half the effort. 2-Substantial/Maximal Assistance-helper does MORE THAN HALF the effort. [place] lifts or holds trunk or limbs and provides more than half the effort. 9-Smmpogjbv-huhrho does ALL the effort. Patient does none of the effort to complete the activity. Or, the assistance of 2 or more helpers is required for the patient to complete the activity. If activity was not attempted, code reason: 7-Patient Refused. 9-Not Applicable-not attempted and the patient did not perform the activity before the current illness, exacerbation or injury. 10-Not Attempted due to Environmental Limitations-(lack of equipment, weather restraints, etc.). 88-Not Attempted due to Medical Conditions or Safety Concerns. Eating (QC): 5 Toileting Hygiene (QC): 6 Toilet Transfer (QC): 6 Other Treatment 1st session([id number]): Pt ambulated to therapy gym after ambulating around ARU floor 1x. Pt then completed horizontal shldr/scapular protract, retraction, abd, add to decrease tone and increase mobility. After session, pt sitting in recliner with call light/phone in reach. All needs met in room. 2nd session([id number]): Pt ambulated to therapy gym using SPC with SBA. Pt completed 6 min on arm bike without resistance. Pt's L UE tone kicked in and movement became painful. Wt bearing and gentle stretch to L UE decreased tone and pain. Pt then ambulated back to room using FWW. Pt sitting in recliner with call light/phone in reach. All needs met in room. Heat applied to L shldr/scapular area. OT Short Term Goals Short Term Goals Time Frame: Nov 28, 2021 Toileting hygiene: 3 Upper body dressin OT Shoe Folder Goals Shoe Folder Goals Time Frame: Dec 14, 2021 Eating (QC): 5 Oral Hygiene (QC): 5 Toileting Hygiene (QC): 4 Shower/Bathe Self (QC): 4 Upper Body Dressing (QC): 4 Lower Body Dressing (QC): 4 On/Off Footwear (QC): 4 Additional Goals: 1-Demonstrate ADL Tasks, 2-Verbalize Understanding, 3- ImproveStrength/Jose Carlos 1=Demonstrate adherence to instructed precautions during ADL tasks. 2=Patient will verbalize/demonstrate understanding of assistive devices/modifications for ADL. 3=Patient will improve strength/tolerance for activity to enable patient to perform ADL's. OT Education/Plan Problem List/Assessment Assessment: Decreased Activ Tolerance, Decreased UE Strength, Impaired Self- Care Skills, Restricted Funct UE ROM, Visual-Perceptual Deficit Discharge Recommendations Plan/Recommendations: Continue POC Treatment Plan/Plan of Care Patient would benefit from OT for education, treatment and training to promote independence in ADL's, mobility, safety and/or upper extremity function for ADL's. Plan of Care: ADL Retraining, Functional Mobility, UE Funct Exercise/Act, UE Neuromus Re-Ed/Coord Treatment Duration: Dec 14, 2021 Frequency: At least 5 of 7 days/Wk (IRF) Estimated Hrs Per Day: 1.5 hours per day Agreement: Yes Rehab Potential: Fair Time/GCodes Start Time: 07:15 (1030) Stop Time: 07:45 (1130) Total Time Billed (hr/min): 90 Billed Treatment Time 1 visit(): ADL 1 (15 min) NM 1 (15 min) 1 visit([id number]): ADL 3 (40 min) NM 1 (20 min) AAKASH HODGES Nov 29, 2021 07:58
[2021-11-29] MEDS: DOCUSATE SODIUM 100 MG (COLACE) CAP PO SCH ×2 (08:09→21:42)
[2021-11-29] MEDS: FAMOTIDINE 20 MG (PEPCID) TABLET PO SCH (08:10)
[2021-11-29] MEDS: ASPIRIN E.C. 81 MG (ECOTRIN) TAB PO SCH (08:10)
[2021-11-29] MEDS: SENNA W/DOCUSATE (SENOKOT S) TABLET PO SCH ×2 (08:10→21:00)
[2021-11-29] MEDS: FLUDROCORTISONE 0.1 MG (FLORINEF) TAB PO SCH (08:10)
[2021-11-29] MEDS: CLOPIDOGREL 75 MG (PLAVIX) TABLET PO SCH (08:10)
[2021-11-29] MEDS: MIDODRINE 10 MG (PROAMATINE) TAB PO SCH ×3 (08:10→21:42)
[2021-11-29] MEDS: polyethylene glycoL POWDER 17 GM (MIRALAX) PACK PO SCH ×2 (09:07→21:00)
--- NOTE | 2021-11-29 09:53 | Physical Therapy Daily Note ---
PT Daily Note-Current Subjective Patient in restroom pre tx, agrees to PT, has no complaints of pain. He is able to stand and pull up his pants on the right side but needs assist with the left. Appearance Patient in bed post tx with nurse call, phone, tray, all needs met. Mental Status Patient Orientation: Person, Place, Situation Transfers SCALE: Activities may be completed with or without assistive devices. 2-Cfprvzxatq-uptqihh completes the activity by him/herself with no assistance from a helper. 5-Set-up or Clean-up Assistance-helper sets up or cleans up; patient completes activity. [place] assists only prior to or following the activity. 4-Supervision or Touching Assistance-helper provides verbal cues and/or touching/steadying and/or contact guard assistance as patient completes activity. Assistance may be provided throughout the activity or intermittently. 3-Partial/Moderate Assistance-helper does LESS THAN HALF the effort. [place] lifts, holds or supports trunk or limbs, but provides less than half the effort. 2-Substantial/Maximal Assistance-helper does MORE THAN HALF the effort. [place] lifts or holds trunk or limbs and provides more than half the effort. 3-Lcrolsply-hhwszx does ALL the effort. Patient does none of the effort to complete the activity. Or, the assistance of 2 or more helpers is required for the patient to complete the activity. If activity was not attempted, code reason: 7-Patient Refused. 9-Not Applicable-not attempted and the patient did not perform the activity before the current illness, exacerbation or injury. 10-Not Attempted due to Environmental Limitations-(lack of equipment, weather restraints, etc.). 88-Not Attempted due to Medical Conditions or Safety Concerns. Roll Left & Right (QC): 6 Sit to Lying (QC): 6 Sit to Stand (QC): 4 Chair/Cgw-js-Bvyji Xfer(QC): 4 Toilet Transfer (QC): 4 SBA for sit to stand and transfers now Weight Bearing Full Weight Bearing Full Weight Bearing Gait Training Distance: 200'x2, 100'x2 Walk 10 feet (QC): 4 Walk 50 ft with 2 Turns(QC): 4 Walk 150 ft (QC): 4 Gait Persons Needed: 1 Gait Assistive Device: Cane Single Point slow ambulation, tends to drift to the left side, needs occasional cues for obstacles on the left side, unsteady when turning Exercises Seated Therapy Exercises: Ankle pumps, Hip flexion, Hip abd/add Seated Reps: 20 LAQ alternating for 5 min NuStep Minutes: 15 NuStep Workload: 4 Treatments transfers, ambulation, functional strengthening Assessment Current Status: Fair Progress Patient needs frequent rest breaks due to fatigue, as he fatigues his left knee prevents him from ambulating as far PT Short Term Goals Short Term Goals Time Frame: Nov 27, 2021 Roll Left & Right: 6 Sit to lyin Lying to sitting on side of be: 6 Sit to stand: 4 (SBA) Chair/vsn-bj-nmjsx transfer: 4 (SBA) Walk 10 feet: 4 (SBA) Walk 50 feet with two turns: 4 (SBA) PT Penitentiary Goals Penitentiary Goals PT It Risk And Assurance Senior Manager Goals Time Frame: Dec 11, 2021 Roll Left & Right (QC): 6 Sit to Lying (QC): 6 Lying-Sitting on Side/Bed(QC): 6 Sit to Stand (QC): 5 Chair/Ewm-ox-Zhcxz Xfer(QC): 5 Toilet Transfer (QC): 5 Car Transfer (QC): 5 Does the Patient Walk: Yes Walk 10 feet (QC): 5 Walk 50ft with 2 Turns (QC): 5 Walk 150 ft (QC): 5 Walking 10ft on Uneven Surface: 5 1 Step (curb) (QC): 4 (SBA) 4 Steps (QC): 4 (SBA) 12 Steps (QC): 88 Picking up an Object (QC): 4 (SBA) Wheel 50 feet with 2 turns (QC: 9 Wheel 150 feet: 9 PT Plan Problem List Problem List: Activity Tolerance, Functional Strength, Safety, Balance, Gait, Transfer, Bed Mobility, ROM Treatment/Plan Treatment Plan: Continue Plan of Care Treatment Plan: Bed Mobility, Education, Functional Activity Jose Carlos, Functional Strength, Group Therapy, Gait, Safety, Therapeutic Exercise, Transfers Treatment Duration: Dec 11, 2021 Frequency: At least 5 of 7 days/Wk (IRF) Estimated Hrs Per Day: 1.5 hours per day Patient and/or Family Agrees t: Yes Safety Risks/Education Patient Education: Gait Training, Transfer Techniques, Correct Positioning, Safety Issues Teaching Recipient: Patient Teaching Methods: Demonstration, Discussion Response to Teaching: Reinforcement Needed Time/GCodes Time In: 0900 Time Out: 1000 Total Billed Treatment Time: 60 Total Billed Treatment 1 visit EX 30' FA 30' FELIZ GRIMM PT Nov 29, 2021 09:53
--- NOTE | 2021-11-29 12:55 | Physical Therapy Daily Note ---
PT Daily Note-Current Subjective Patient in recliner pre tx, agrees to PT, has no complaints of pain. Appearance Patient in recliner post tx with nurse call, phone, tray, all needs met. Mental Status Patient Orientation: Person, Place, Situation Transfers SCALE: Activities may be completed with or without assistive devices. 5-Htgzxyfbxv-zfvaotl completes the activity by him/herself with no assistance from a helper. 5-Set-up or Clean-up Assistance-helper sets up or cleans up; patient completes activity. [place] assists only prior to or following the activity. 4-Supervision or Touching Assistance-helper provides verbal cues and/or [place]/steadying and/or contact guard assistance as patient completes activity. Assistance may be provided throughout the activity or intermittently. 3-Partial/Moderate Assistance-helper does LESS THAN HALF the effort. [place] lifts, holds or supports trunk or limbs, but provides less than half the effort. 2-Substantial/Maximal Assistance-helper does MORE THAN HALF the effort. [place] lifts or holds trunk or limbs and provides more than half the effort. 5-Gjljzunde-zupeur does ALL the effort. Patient does none of the effort to complete the activity. Or, the assistance of 2 or more helpers is required for the patient to complete the activity. If activity was not attempted, code reason: 7-Patient Refused. 9-Not Applicable-not attempted and the patient did not perform the activity before the current illness, exacerbation or injury. 10-Not Attempted due to Environmental Limitations-(lack of equipment, weather restraints, etc.). 88-Not Attempted due to Medical Conditions or Safety Concerns. Sit to Stand (QC): 4 Chair/Zwt-up-Fvhhf Xfer(QC): 4 SBA Weight Bearing Full Weight Bearing Full Weight Bearing Gait Training Distance: 120'x2 Walk 10 feet (QC): 4 Walk 50 ft with 2 Turns(QC): 4 Gait Persons Needed: 1 Gait Assistive Device: Cane Single Point SBA, tends to drift to the left side, cues for obstacles Exercises NuStep Minutes: 15 NuStep Workload: 4 Treatments transfers, ambulation, functional strengthening Assessment Current Status: Fair Progress improving endurance PT Short Term Goals Short Term Goals Time Frame: Nov 27, 2021 Roll Left & Right: 6 Sit to lyin Lying to sitting on side of be: 6 Sit to stand: 4 (SBA) Chair/kst-xq-khhwn transfer: 4 (SBA) Walk 10 feet: 4 (SBA) Walk 50 feet with two turns: 4 (SBA) PT Mcfp Goals Moving Van Driver Goals PT Mcfp Goals Time Frame: Dec 11, 2021 Roll Left & Right (QC): 6 Sit to Lying (QC): 6 Lying-Sitting on Side/Bed(QC): 6 Sit to Stand (QC): 5 Chair/Dfq-sn-Quncg Xfer(QC): 5 Toilet Transfer (QC): 5 Car Transfer (QC): 5 Does the Patient Walk: Yes Walk 10 feet (QC): 5 Walk 50ft with 2 Turns (QC): 5 Walk 150 ft (QC): 5 Walking 10ft on Uneven Surface: 5 1 Step (curb) (QC): 4 (SBA) 4 Steps (QC): 4 (SBA) 12 Steps (QC): 88 Picking up an Object (QC): 4 (SBA) Wheel 50 feet with 2 turns (QC: 9 Wheel 150 feet: 9 PT Plan Problem List Problem List: Activity Tolerance, Functional Strength, Safety, Balance, Gait, Transfer, Bed Mobility, ROM Treatment/Plan Treatment Plan: Continue Plan of Care Treatment Plan: Bed Mobility, Education, Functional Activity Jose Carlos, Functional Strength, Group Therapy, Gait, Safety, Therapeutic Exercise, Transfers Treatment Duration: Dec 11, 2021 Frequency: At least 5 of 7 days/Wk (IRF) Estimated Hrs Per Day: 1.5 hours per day Patient and/or Family Agrees t: Yes Safety Risks/Education Patient Education: Gait Training, Transfer Techniques, Correct Positioning, Safety Issues Teaching Recipient: Patient Teaching Methods: Demonstration, Discussion Response to Teaching: Reinforcement Needed Time/GCodes Time In: 1130 Time Out: 1200 Total Billed Treatment Time: 30 Total Billed Treatment 1 visit EX 15' FA 15' FELIZ GRIMM PT Nov 29, 2021 12:55
[2021-11-29] MEDS: TAMSULOSIN 0.4 MG (FLOMAX) CAP PO SCH (17:41)
[2021-11-29 20:00] VITALS: BP 148/75
[2021-11-29] MEDS: ENOXAPARIN 40 MG/0.4 ML (LOVENOX) SYR SC SCH (21:41)
[2021-11-29] MEDS: ACETAMINOPHEN 325 MG TABLET PO PRN (21:43)
--- NOTE | 2021-11-30 06:35 | PM&R Progress Note ---
Subjective HPI/CC On Admission Date Seen by Provider: Nov 30, 2021 Time Seen by Provider: 11:45 Subjective/Events-last exam 11/30/2021: Patient set for discharge tomorrow Bowels are moving Urinary frequency continues but he is sleeping better 11/29/2021: Pt doing really well Denies any significant new problems Got a little bit of rest last night Bowels moved yesterday Bladder scan reveals no post void residual 11/28/2021: Pt doing really well Drinking and eating fairly well He is building up his reserve pretty well Discharge planned for Friday11/27/2021: Pt doing well Finishing up on Vancomycin today Discharge is planned for Friday No falls No pain 11/26/2021: Pt doing really well PICC line issues will be managed Vancomycin is still on board for UTI Staph Epidermidis Bp is much improved 11/25/2021: Patient slept last night Urinary frequency continues Vancomycin maintain Monitor closely 11/24/2021: Much improved Nocturia still present disturbing sleep Flomax twice a day tolerated Eating better Feels like he is making progress 11/23/2021: Much improved status Urinary frequency is still present Flomax twice a day Eating better Walking better Motivation good 11/22/2021: Patient much improved Urology change Flomax to twice a day Minimal post void residual Patient feels like he is stronger No falls Reviewed urine culture 11/21/2021: Patient improved We will Hep-Lock IV fluid Patient will focus on dietary consumption Urinary frequency will be addressed by urology No pain is reported Weakness is noted Checked meds and labs Review of Systems General: Fatigue, Malaise Objective Exam Vital Signs Vital Signs Date Time Temp Pulse Resp B/P (MAP) Pulse Ox O2 Delivery O2 Flow Rate FiO2 11/30/21 21:23 93 Room Air 11/30/21 20:00 37.2 88 18 136/64 (88) Capillary Refill : General Appearance: WD/WN, Anxious, Chronically ill, Thin, Other (Frail) HEENT: PERRL/EOMI, Normal ENT Inspection, Pharynx Normal Neck: Full Range of Motion, Normal Inspection, Non Tender, Supple, Carotid Bruit Respiratory: Chest Non Tender, Lungs Clear, No Accessory Muscle Use, No Respiratory Distress, Decreased Breath Sounds Cardiovascular: Regular Rate, Rhythm, No Edema, No Gallop, No JVD, No Murmur, Normal Peripheral Pulses Gastrointestinal: Normal Bowel Sounds, No Organomegaly, No Pulsatile Mass, Non Tender, Soft Back: Normal Inspection, No CVA Tenderness, No Vertebral Tenderness Extremity: Normal Capillary Refill, Normal Inspection, Normal Range of Motion (Left-sided hemiparesis), Non Tender, No Calf Tenderness, No Pedal Edema Neurologic/Psychiatric: Alert, Oriented x3, No Motor/Sensory Deficits, sales and service representative II- XII Norm as Tested, Abnormal Gait, Depressed Affect, Motor Weakness (Left weakness greater than right but generalized throughout) Skin: Normal Color, Warm/Dry Lymphatic: No Adenopathy Results/Procedures Lab Patient resulted labs reviewed. FIM Transfers Therapy Code Descriptions/Definitions Functional [place] Measure: 0=Not Assessed/NA 4=Minimal Assistance 1=Total Assistance 5=Supervision or Setup 2=Maximal Assistance 6=Modified [place] 3=Moderate Assistance 7=Complete IndependenceSCALE: Activities may be completed with or without assistive devices. 7-Phwsmxeflf-kqanbir completes the activity by him/herself with no assistance from a helper. 5-Set-up or Clean-up Assistance-helper sets up or cleans up; patient completes activity. [place] assists only prior to or following the activity. 4-Supervision or Touching Assistance-helper provides verbal cues and/or t ouching/steadying and/or contact guard assistance as patient completes activity. Assistance may be provided throughout the activity or intermittently. 3-Partial/Moderate Assistance-helper does LESS THAN HALF the effort. [place] lifts, holds or supports trunk or limbs, but provides less than half the effort. 2-Substantial/Maximal Assistance-helper does MORE THAN HALF the effort. [place] lifts or holds trunk or limbs and provides more than half the effort. 9-Agosjvkod-sdtvxw does ALL the effort. Patient does none of the effort to complete the activity. Or, the assistance of 2 or more helpers is required for the patient to complete the activity. If activity was not attempted, code reason: 7-Patient Refused. 9-Not Applicable-not attempted and the patient did not perform the activity before the current illness, exacerbation or injury. 10-Not Attempted due to Environmental Limitations-(lack of equipment, weather restraints, etc.). 88-Not Attempted due to Medical Conditions or Safety Concerns. Roll Left to Right (QC): 6 Sit to Lying (QC): 6 Sit to Stand (QC): 4 Chair/Aox-lr-Ahyhj Xfer(QC): 4 Car Transfer (QC): 3 Gait Training Does the Patient Walk?: Yes Distance: 120'x2 Walk 10 feet (QC): 4 Walk 50 ft with 2 Turns(QC): 4 Walk 150 ft (QC): 4 Walking 10ft/uneven surface-QC: 4 Gait Persons Needed: 1 Gait Assistive Device: Cane Single Point Wheelchair Training Does the Pt Use a Wheelchair?: No Wheel 50 ft with 2 turns (QC): 9 Wheel 150 ft (QC): 9 Stair Training #of Steps: 4 1 Step (curb) (QC): 4 4 Steps (QC): 4 12 Steps (QC): 88 Balance Picking up an Object (QC): 4 (CGA not using a tannery worker) ADL-Treatment Eating (QC): 5 Oral Hygiene (QC): 6 Shower/Bathe Self (QC): 4 Upper Body Dressing (QC): 3 (mod A) Lower Body Dressing (QC): 2 On/Off Footwear (QC): 2 Toileting Hygiene (QC): 6 Toilet Transfer (QC): 6 Assessment/Plan Assessment and Plan Assess & Plan/Chief Complaint Patient is assessment: Severe debility and worsening weakness post Covid 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 placed on midodrine Previous stroke with left-sided weakness CAD previous stents Hypertension Hyperlipidemia Prostate cancer Carotid stenosis Urinary frequency Dehydration now resolved after IV fluids GERD Acute UTI coag negative staph started on Vanc and completed treatment Poor nutrition Plan: Supportive care IV fluids Bladder scan Aggressive rehab protocol Dr Valencia consult Vanc empirically 11/21/2021: Vancomycin Hep-Lock IV fluid 11/22/2021: Maintain vancomycin Supportive care 11/23/2021: Vancomycin Supportive care 11/24/2021: Complete vancomycin for UTI 11/25/2021: Vancomycin Supportive care 11/26/2021: Supportive care Complete vancomycin 11/27/2021: Completed vancomycin Supportive care 11/28/2021: Discharge on Friday11/29/2021: Patient much improved Discharge Friday11/30/2021: Discharge home Friday (1) Debility (2) Recurrent syncope Status: Acute (3) Hypotension Status: Acute (4) Prostate cancer Status: Acute (5) Dehydration Status: Acute (6) History of cerebrovascular accident (7) Primary hypertension (8) Mixed hyperlipidemia (9) Orthostatic hypotension Status: Acute (10) Cerebral infarction due to unspecified occlusion or stenosis 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 GUILLERMO CABELLO DO Nov 30, 2021 06:35
[2021-11-30] MEDS: PANTOPRAZOLE 40 MG (PROTONIX) TAB PO SCH ×2 (07:01→17:25)
[2021-11-30 08:00] VITALS: BP 114/63
[2021-11-30] MEDS: SENNA W/DOCUSATE (SENOKOT S) TABLET PO SCH ×2 (08:39→21:13)
[2021-11-30] MEDS: polyethylene glycoL POWDER 17 GM (MIRALAX) PACK PO SCH ×2 (08:40→21:12)
[2021-11-30] MEDS: MIDODRINE 10 MG (PROAMATINE) TAB PO SCH ×3 (08:40→20:02)
[2021-11-30] MEDS: DOCUSATE SODIUM 100 MG (COLACE) CAP PO SCH ×2 (08:40→21:12)
[2021-11-30] MEDS: FLUDROCORTISONE 0.1 MG (FLORINEF) TAB PO SCH (08:40)
[2021-11-30] MEDS: FAMOTIDINE 20 MG (PEPCID) TABLET PO SCH (08:40)
[2021-11-30] MEDS: ASPIRIN E.C. 81 MG (ECOTRIN) TAB PO SCH (08:40)
[2021-11-30] MEDS: CLOPIDOGREL 75 MG (PLAVIX) TABLET PO SCH (08:40)
--- NOTE | 2021-11-30 08:59 | Occupational Ther Daily Note ---
OT Current Status-Daily Note Subjective Pt alert, sitting in recliner. Pt agrees to therapy. No c/o pain. Mental Status/Objective Patient Orientation: Person, Place, Time, Situation Attachments: IV (PIC) ADL-Treatment Pt agrees to shower. Pt set up for eating. Independent for toileting and oral care. Pt requires assist to dry feet after shower. Completes all other bathing using shower chair, grabbars and hand held shower. Min A for upper body dressing, assist to set up and to cue on technique then pt able to complete on own. Min A for pants, setup and cues on technique then able to complete on own. Pt takes increased time to complete due to fatigue and recovery breaks. Therapy Code Descriptions/Definitions Functional [place] Measure: 0=Not Assessed/NA 4=Minimal Assistance 1=Total Assistance 5=Supervision or Setup 2=Maximal Assistance 6=Modified [place] 3=Moderate Assistance 7=Complete IndependenceSCALE: Activities may be completed with or without assistive devices. 6-Jotusklgfg-fzsgwcj completes the activity by him/herself with no assistance from a helper. 5-Set-up or Clean-up Assistance-helper sets up or cleans up; patient completes activity. [place] assists only prior to or following the activity. 4-Supervision or Touching Assistance-helper provides verbal cues and/or touching/steadying and/or contact guard assistance as patient completes activity. Assistance may be provided throughout the activity or intermittently. 3-Partial/Moderate Assistance-helper does LESS THAN HALF the effort. [place] lifts, holds or supports trunk or limbs, but provides less than half the effort. 2-Substantial/Maximal Assistance-helper does MORE THAN HALF the effort. [place] lifts or holds trunk or limbs and provides more than half the effort. 2-Nibadraej-doshkw does ALL the effort. Patient does none of the effort to complete the activity. Or, the assistance of 2 or more helpers is required for the patient to complete the activity. If activity was not attempted, code reason: 7-Patient Refused. 9-Not Applicable-not attempted and the patient did not perform the activity before the current illness, exacerbation or injury. 10-Not Attempted due to Environmental Limitations-(lack of equipment, weather restraints, etc.). 88-Not Attempted due to Medical Conditions or Safety Concerns. Eating (QC): 5 Oral Hygiene (QC): 6 Shower/Bathe Self (QC): 3 (assist only to dry feet before dressing) Upper Body Dressing (QC): 3 Lower Body Dressing (QC): 3 On/Off Footwear: 3 (mod A) Toileting Hygiene (QC): 6 Toilet Transfer (QC): 6 Pt does have visual deficits that make seeing clothing or objects on L side difficult. Other Treatment Pt completed isometric exercises with B UE's, 3 sets 10 reps. Grasp/release with L UE to work on strength and dexterity, 9 large pegs. After session, pt sitting in recliner with call light/phone in reach. All needs met in room. OT Short Term Goals Short Term Goals Time Frame: Nov 28, 2021 Toileting hygiene: 3 Upper body dressin OT Jail Goals Jail Goals Time Frame: Dec 14, 2021 Eating (QC): 5 (met) Oral Hygiene (QC): 5 (met) Toileting Hygiene (QC): 4 (met) Shower/Bathe Self (QC): 4 (notmet) Upper Body Dressing (QC): 4 (not met) Lower Body Dressing (QC): 4 (not met) On/Off Footwear (QC): 4 (not met) Additional Goals: 1-Demonstrate ADL Tasks, 2-Verbalize Understanding, 3-ImproveStrength/Jose Carlos 1=Demonstrate adherence to instructed precautions during ADL tasks. 2=Patient will verbalize/demonstrate understanding of assistive devices/modifications for ADL. 3=Patient will improve strength/tolerance for activity to enable patient to perform ADL's. OT Education/Plan Problem List/Assessment Assessment: Decreased Activ Tolerance, Impaired Self-Care Skills, Restricted Funct UE ROM, Visual-Perceptual Deficit Discharge Recommendations Plan/Recommendations: Continue POC Treatment Plan/Plan of Care Patient would benefit from OT for education, treatment and training to promote independence in ADL's, mobility, safety and/or upper extremity function for ADL's. Plan of Care: ADL Retraining, Functional Mobility, UE Funct Exercise/Act, UE Neuromus Re-Ed/Coord Treatment Duration: Dec 14, 2021 Frequency: At least 5 of 7 days/Wk (IRF) Estimated Hrs Per Day: 1.5 hours per day Agreement: Yes Rehab Potential: Fair Time/GCodes Start Time: 07:30 Stop Time: 09:00 Total Time Billed (hr/min): 90 Billed Treatment Time 1 visit-ADL 5 (75 min) NM 1 (15 min) AAKASH HODGES Nov 30, 2021 08:59
--- NOTE | 2021-11-30 12:24 | Physical Therapy Daily Note ---
PT Daily Note-Current Subjective Pt. hesitant to agree to therapy. States he is still a little worried he will "wear his out at home" . This RESIDENTIAL ADVISOR pointing out that he is nearly indep with all tasks. Pain Location: No Pain Reported Mental Status Patient Orientation: Normal For Age Transfers SCALE: Activities may be completed with or without assistive devices. 1-Fihvjhzzjy-jowoouj completes the activity by him/herself with no assistance from a helper. 5-Set-up or Clean-up Assistance-helper sets up or cleans up; patient completes activity. [place] assists only prior to or following the activity. 4-Supervision or Touching Assistance-helper provides verbal cues and/or touching/steadying and/or contact guard assistance as patient completes activity. Assistance may be provided throughout the activity or intermittently. 3-Partial/Moderate Assistance-helper does LESS THAN HALF the effort. [place] lifts, holds or supports trunk or limbs, but provides less than half the effort. 2-Substantial/Maximal Assistance-helper does MORE THAN HALF the effort. [place] lifts or holds trunk or limbs and provides more than half the effort. 7-Qqfzvoztm-rswhvc does ALL the effort. Patient does none of the effort to complete the activity. Or, the assistance of 2 or more helpers is required for the patient to complete the activity. If activity was not attempted, code reason: 7-Patient Refused. 9-Not Applicable-not attempted and the patient did not perform the activity before the current illness, exacerbation or injury. 10-Not Attempted due to Environmental Limitations-(lack of equipment, weather restraints, etc.). 88-Not Attempted due to Medical Conditions or Safety Concerns. Roll Left & Right (QC): 6 Sit to Lying (QC): 6 Lying to Sitting/Side of Bed(Q: 6 Sit to Stand (QC): 6 Chair/Tcv-qu-Quqti Xfer(QC): 6 Toilet Transfer (QC): 6 Car Transfer (QC): 6 Weight Bearing Full Weight Bearing Full Weight Bearing Gait Training Does the Patient Walk?: Yes Walk 10 feet (QC): 6 Walk 50 ft with 2 Turns(QC): 6 Walk 150 ft (QC): 6 Walking 10ft/uneven surface-QC: 4 Gait Persons Needed: 1 Gait Assistive Device: Cane Single Point pt. needs occas reminder to avoid objects on his left as he walks Stair Training Stair Training: Handrails/: 1 handrail #of Steps: 12 1 Step (curb) (QC): 6 4 Steps (QC): 6 12 Steps (QC): 6 Stairs: Pattern: Reciprocal holds rail with one hand and cane in other, no LOB Balance Picking up an Object (QC): 6 Exercises NuStep Minutes: 10 NuStep Workload: 3 Assessment Current Status: Good Progress PT Short Term Goals Short Term Goals Time Frame: Nov 27, 2021 Roll Left & Right: 6 Sit to lyin Lying to sitting on side of be: 6 Sit to stand: 4 (SBA) Chair/oqm-dz-jlhhl transfer: 4 (SBA) Walk 10 feet: 4 (SBA) Walk 50 feet with two turns: 4 (SBA) PT Education Liaison Goals Education Liaison Goals PT Education Liaison Goals Time Frame: Dec 11, 2021 Roll Left & Right (QC): 6 Sit to Lying (QC): 6 Lying-Sitting on Side/Bed(QC): 6 Sit to Stand (QC): 5 Chair/Rwq-sj-Gnlhn Xfer(QC): 5 Toilet Transfer (QC): 5 Car Transfer (QC): 5 Does the Patient Walk: Yes Walk 10 feet (QC): 5 Walk 50ft with 2 Turns (QC): 5 Walk 150 ft (QC): 5 Walking 10ft on Uneven Surface: 5 1 Step (curb) (QC): 4 (SBA) 4 Steps (QC): 4 (SBA) 12 Steps (QC): 88 Picking up an Object (QC): 4 (SBA) Wheel 50 feet with 2 turns (QC: 9 Wheel 150 feet: 9 PT Plan Treatment/Plan Treatment Plan: Continue Plan of Care Treatment Plan: Bed Mobility, Education, Functional Activity Jose [place], Functional Strength, Group Therapy, Gait, Safety, Therapeutic Exercise, Transfers Treatment Duration: Dec 11, 2021 Frequency: At least 5 of 7 days/Wk (IRF) Estimated Hrs Per Day: 1.5 hours per day Patient and/or Family Agrees t: Yes Safety Risks/Education Patient Education: Gait Training, Transfer Techniques, Steps, Reviewed Precautions, Correct Positioning, Safety Issues Teaching Recipient: Patient Teaching Methods: Demonstration, Discussion Response to Teaching: Verbalize Understanding, Return Demonstration Time/GCodes Time In: 1100 Time Out: 1200 Total Billed Treatment Time: 60 Total Billed Treatment 1,FA25m,GT15m,EX20m MIKE MCKNIGHT RESIDENTIAL ADVISOR Nov 30, 2021 12:24
--- NOTE | 2021-11-30 13:37 | Physical Therapy Daily Note ---
PT Daily Note-Current Subjective Patient in recliner pre tx, agrees to PT, has no complaints of pain. Appearance Patient in bed post tx with nurse call, phone, tray, all needs met. Mental Status Patient Orientation: Person, Place, Situation Transfers SCALE: Activities may be completed with or without assistive devices. 5-Dtdbenusee-bsaikyf completes the activity by him/herself with no assistance from a helper. 5-Set-up or Clean-up Assistance-helper sets up or cleans up; patient completes activity. [place] assists only prior to or following the activity. 4-Supervision or Touching Assistance-helper provides verbal cues and/or touching /steadying and/or contact guard assistance as patient completes activity. Assistance may be provided throughout the activity or intermittently. 3-Partial/Moderate Assistance-helper does LESS THAN HALF the effort. [place] lifts, holds or supports trunk or limbs, but provides less than half the effort. 2-Substantial/Maximal Assistance-helper does MORE THAN HALF the effort. [place] lifts or holds trunk or limbs and provides more than half the effort. 6-Dhtfspiex-eoibrr does ALL the effort. Patient does none of the effort to complete the activity. Or, the assistance of 2 or more helpers is required for the patient to complete the activity. If activity was not attempted, code reason: 7-Patient Refused. 9-Not Applicable-not attempted and the patient did not perform the activity before the current illness, exacerbation or injury. 10-Not Attempted due to Environmental Limitations-(lack of equipment, weather restraints, etc.). 88-Not Attempted due to Medical Conditions or Safety Concerns. Sit to Lying (QC): 6 Sit to Stand (QC): 4 Chair/Cmt-ws-Hjuuj Xfer(QC): 4 Weight Bearing Full Weight Bearing Full Weight Bearing Gait Training Distance: 120'x4 Walk 10 feet (QC): 4 Walk 50 ft with 2 Turns(QC): 4 Gait Assistive Device: Cane Single Point Patient ambulated to the therapy gym, during tx needed to return to his room to have a BM, didn't end up having a BM, ambulated back to the gym and then back to his room. Exercises NuStep Minutes: 10 NuStep Workload: 4 Treatments bed mobility and transfers, ambulation, functional strengthening Assessment Current Status: Fair Progress SBA with transfers and ambulation, still has left neglect PT Short Term Goals Short Term Goals Time Frame: Nov 27, 2021 Roll Left & Right: 6 Sit to lyin Lying to sitting on side of be: 6 Sit to stand: 4 (SBA) Chair/lue-ek-fvngp transfer: 4 (SBA) Walk 10 feet: 4 (SBA) Walk 50 feet with two turns: 4 (SBA) PT Mcfp Goals Tube Cleaner Goals PT Tube Cleaner Goals Time Frame: Dec 11, 2021 Roll Left & Right (QC): 6 Sit to Lying (QC): 6 Lying-Sitting on Side/Bed(QC): 6 Sit to Stand (QC): 5 Chair/Fvz-pl-Weijs Xfer(QC): 5 Toilet Transfer (QC): 5 Car Transfer (QC): 5 Does the Patient Walk: Yes Walk 10 feet (QC): 5 Walk 50ft with 2 Turns (QC): 5 Walk 150 ft (QC): 5 Walking 10ft on Uneven Surface: 5 1 Step (curb) (QC): 4 (SBA) 4 Steps (QC): 4 (SBA) 12 Steps (QC): 88 Picking up an Object (QC): 4 (SBA) Wheel 50 feet with 2 turns (QC: 9 Wheel 150 feet: 9 PT Plan Problem List Problem List: Activity Tolerance, Functional Strength, Safety, Balance, Gait, Transfer, Bed Mobility, ROM Treatment/Plan Treatment Plan: Continue Plan of Care Treatment Plan: Bed Mobility, Education, Functional Activity Jose Carlos, Functional Strength, Group Therapy, Gait, Safety, Therapeutic Exercise, Transfers Treatment Duration: Dec 11, 2021 Frequency: At least 5 of 7 days/Wk (IRF) Estimated Hrs Per Day: 1.5 hours per day Patient and/or Family Agrees t: Yes Safety Risks/Education Patient Education: Gait Training, Transfer Techniques, Correct Positioning, Safety Issues Teaching Recipient: Patient Teaching Methods: Demonstration, Discussion Response to Teaching: Reinforcement Needed Time/GCodes Time In: 1255 Time Out: 1325 Total Billed Treatment Time: 30 Total Billed Treatment 1 visit EX 10' FA 20' FELIZ GRIMM PT Nov 30, 2021 13:37
[2021-11-30] MEDS: TAMSULOSIN 0.4 MG (FLOMAX) CAP PO SCH (17:25)
[2021-11-30 20:00] VITALS: BP 136/64
[2021-11-30] MEDS: ACETAMINOPHEN 325 MG TABLET PO PRN (20:03)
[2021-11-30] MEDS: ENOXAPARIN 40 MG/0.4 ML (LOVENOX) SYR SC SCH (20:03)
[2021-11-30] MEDS ORDERED: SENN1TAB76 PO (20:53)
[2021-11-30] MEDS ORDERED: FLDR.1T PO (20:53)
[2021-11-30] MEDS ORDERED: MIDO10TA PO (20:53)
--- NOTE | 2021-11-30 20:55 | D/C HH Face to Face Order ---
D/C Face to Face Orders Reconcile Patient Problems Problems Reviewed?: Yes Instructions for Patient Via [facility], Patient Instructions/FollowUp: Dr Garcia as scheduled Physician to follow Patient: Radha Discharge Diet for Home: No Restrictions Patient Problems: Weakness Post COVID Patient Data-Allergies,Ht & Wt Patient Allergies: Coded Allergies: aloe vera (Verified Allergy, Unknown, 05/01/21) cephalexin (Verified Allergy, Unknown, 05/01/21) influenza virus vaccine ts [id number] (36 mos,up) (Verified Allergy, Unkn own, 05/01/21) Home Health Need/Face to Face Date of Face to Face: Nov 30, 2021 Clinical Findings: Generalized weakness and fatigue, Instability, Muscle weakness I have seen Pt rmos-wy-bdom: Yes Discharged To: Home Diagnosis/Conditions: Weakness Patient is Homebound due to: Muscle weakness Homebound Status Due to the above stated illness, injury or surgical procedure (medical condition or diagnosis) and associated clinical findings, the patient is homebound because of his/her inability to leave home except with aid of a supportive device and/or person AND leaving the home requires a considerable and taxing effort or is medically contraindicated. Pt req the following assistanc: Walker Home Health Nursing Orders Home Health Services Order: Nursing Services, [place] Worker-Evaluate & Treat, Physical Therapy-Evaluate & Treat Home Health Infusion Therapy Line Start Date: Nov 20, 2021 Certify Stmt I certify that this patient is under my care and that I, a nurse practitioner or a physician; a bilingual sales assistant working with me, had a face to face encounter that - meets the physician face to face encounter requirements with this patient as dated. GUILLERMO GARCIA DO Nov 30, 2021 20:55
[2021-12-01] MEDS: PANTOPRAZOLE 40 MG (PROTONIX) TAB PO SCH (06:59)
[2021-12-01 07:22] VITALS: BP 128/68
--- NOTE | 2021-12-01 07:30 | Discharge Summary ---
Diagnosis/Chief Complaint Date of Admission Nov 19, 2021 at 16:12 Date of Discharge Discharge Date: Dec 01, 2021 Discharge Diagnosis Assessment: Severe debility and worsening weakness post Covid 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 placed on midodrine Previous stroke with left-sided weakness CAD previous stents Hypertension Hyperlipidemia Prostate cancer Carotid stenosis Urinary frequency Dehydration now resolved after IV fluids GERD Acute UTI coag negative staph started on Vanc and completed treatment Poor nutrition Plan: Supportive care IV fluids Bladder scan Aggressive rehab protocol Dr Valencia consult Vanc empirically 11/21/2021: Vancomycin Hep-Lock IV fluid 11/22/2021: Maintain vancomycin Supportive care 11/23/2021: Vancomycin Supportive care 11/24/2021: Complete vancomycin for UTI 11/25/2021: Vancomycin Supportive care 11/26/2021: Supportive care Complete vancomycin 11/27/2021: Completed vancomycin Supportive care 11/28/2021: Discharge on Friday11/29/2021: Patient much improved Discharge Friday11/30/2021: Discharge home Friday (1) Debility (2) Recurrent syncope Status: Acute (3) Hypotension Status: Acute (4) Prostate cancer Status: Acute (5) Dehydration Status: Acute (6) History of cerebrovascular accident (7) Primary hypertension (8) Mixed hyperlipidemia (9) Orthostatic hypotension Status: Acute (10) Cerebral infarction due to unspecified occlusion or stenosis 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 Discharge Summary Discharge Physical Examination Allergies: Coded Allergies: aloe vera (Verified Allergy, Unknown, 05/01/21) cephalexin (Verified Allergy, Unknown, 05/01/21) influenza virus vaccine [id number] (36 mos,up) (Verified Allergy, Unknown, 05/01/21) Vitals & I&Os Vital Signs Date Time Temp Pulse Resp B/P (MAP) Pulse Ox O2 Delivery O2 Flow Rate FiO2 12/01/21 11:15 36.6 82 18 128/68 94 Room Air General Appearance: Alert, Oriented X3, Cooperative Respiratory: Clear to Auscultation Cardiovascular: Regular Rate Psych/Mental Status: Mental Status NL Hospital Course Was the Problem List Reviewed?: Yes Patient had a standard hospital course and rehab. Patient was admitted directly from my office weakness multiple falls syndrome causing more issues with left- sided weakness from stroke in May. Patient was diagnosed with UTI placed on empiric antibiotics which revealed staph epidermidis. Patient completed vancomycin. Dr. Valencia initiated regimen with good results. Urinary frequency continued but not severe. Orthostasis managed with midodrine overall he did very well pain continue to strengthen able to discharge home. Labs (last 24 hrs) Laboratory Tests 11/19/21 16:12: Lab Scanned Report Referred Lab Report 11/19/21 17:00: White Blood Count 5.9, Red Blood Count 3.79L, Hemoglobin 10.7L, Hematocrit 34L, Mean Corpuscular Volume 89, Mean Corpuscular Hemoglobin 28, Mean Corpuscular Hemoglobin Concent 32, Red Cell Distribution Width 14.1, Platelet Count 361, Mean Platelet Volume 8.9L, Immature Granulocyte % (Auto) 1, Neutrophils (%) (Auto) 72, Lymphocytes (%) (Auto) 16, Monocytes (%) (Auto) 9, Eosinophils (%) (Auto) 2, Basophils (%) (Auto) 0, Neutrophils # (Auto) 4.3, Lymphocytes # (Auto) 1.0, Monocytes # (Auto) 0.6, Eosinophils # (Auto) 0.1, Basophils # (Auto) 0.0, Immature Granulocyte # (Auto) 0.0, Sodium Level 137, Potassium Level 3.8, Chloride Level 105, Carbon Dioxide Level 23, Anion Gap 9, Blood Urea Nitrogen 16, Creatinine 0.81, Estimat Glomerular Filtration Rate 88, BUN/Creatinine Ratio 20, Glucose Level 114H, Lactic Acid Level 1.13, Calcium Level 8.4L, Corrected Calcium 9.4, Total Bilirubin 0.5, Aspartate Amino Transf (AST/SGOT) 32, Alanine Aminotransferase (ALT/SGPT) 30, Alkaline Phosphatase 82, Troponin I < 0.028, B- Type Natriuretic Peptide 21.7, Total Protein 6.2L, Albumin 2.7L, Procalcitonin 0.08 11/19/21 18:10: Urine Color YELLOW, Urine Clarity CLEAR, Urine pH 7.0, Urine Specific [place] 1.020, Urine Protein TRACEH, Urine Glucose (UA) NEGATIVE, Urine Ketones TRACEH, Urine Nitrite NEGATIVE, Urine Bilirubin NEGATIVE, Urine Urobilinogen 4.0, Urine Leukocyte Esterase TRACEH, Urine RBC (Auto) NEGATIVE, Urine RBC NONE, Urine WBC 0-2, Urine Squamous Epithelial Cells NONE, Urine Renal Epithelial Cells NONE, Urine Crystals NONE, Urine Bacteria LARGEH, Urine Casts NONE, Urine Mucus NEGATIVE, Urine Culture Indicated YES 11/20/21 04:57: White Blood Count 5.3, Red Blood Count 3.80L, Hemoglobin 11.0L, Hematocrit 34L, Mean Corpuscular Volume 88, Mean Corpuscular Hemoglobin 29, Mean Corpuscular Hemoglobin Concent 33, Red Cell Distribution Width 14.2, Platelet Count 331, Mean Platelet Volume 8.5L, Immature Granulocyte % (Auto) 1, Neutrophils (%) (Auto) 65, Lymphocytes (%) (Auto) 21, Monocytes (%) (Auto) 11, Eosinophils (%) (Auto) 2, Basophils (%) (Auto) 0, Neutrophils # (Auto) 3.4, Lymphocytes # (Auto) 1.1, Monocytes # (Auto) 0.6, Eosinophils # (Auto) 0.1, Basophils # (Auto) 0.0, Immature Granulocyte # (Auto) 0.0, Sodium Level 138, Potassium Level 3.7, Chloride Level 109H, Carbon Dioxide Level 20L, Anion Gap 9, Blood Urea Nitrogen 13, Creatinine 0.70, Estimat Glomerular Filtration Rate 92, BUN/Creatinine Ratio 19, Glucose Level 100, Calcium Level 8.2L, Corrected Calcium 9.3, Total Bilirubin 0.5, Aspartate Amino Transf (AST/SGOT) 30, Alanine Aminotransferase (ALT/SGPT) 32, Alkaline Phosphatase 83, Total Protein 6.0L, Albumin 2.6L 11/21/21 06:18: White Blood Count 5.2, Red Blood Count 3.82L, Hemoglobin 11.0L, Hematocrit 34L, Mean Corpuscular Volume 88, Mean Corpuscular Hemoglobin 29, Mean Corpuscular Hem oglobin Concent 33, Red Cell Distribution Width 14.1, Platelet Count 289, Mean Platelet Volume 8.5L, Immature Granulocyte % (Auto) 1, Neutrophils (%) (Auto) 69, Lymphocytes (%) (Auto) 19, Monocytes (%) (Auto) 9, Eosinophils (%) (Auto) 2, Basophils (%) (Auto) 0, Neutrophils # (Auto) 3.6, Lymphocytes # (Auto) 1.0, Monocytes # (Auto) 0.5, Eosinophils # (Auto) 0.1, Basophils # (Auto) 0.0, Immature Granulocyte # (Auto) 0.0, Sodium Level 138, Potassium Level 3.6, Chloride Level 109H, Carbon Dioxide Level 19L, Anion Gap 10, Blood Urea Nitrogen 11, Creatinine 0.66, Estimat Glomerular Filtration Rate 94, BUN/Creatinine Ratio 17, Glucose Level 103, Calcium Level 8.1L, Corrected Calcium 9.3, Total Bilirubin 0.5, Aspartate Amino Transf (AST/SGOT) 37H, Alanine Aminotransferase (ALT/SGPT) 30, Alkaline Phosphatase 80, Total Protein 5.6L, Albumin 2.5L 11/22/21 09:00: Vancomycin Level Trough 6.1L 11/23/21 20:30: Vancomycin Level Trough 17.9 11/26/21 09:40: White Blood Count 7.2, Red Blood Count 4.30, Hemoglobin 12.3L, Hematocrit 39L, Mean Corpuscular Volume 91, Mean Corpuscular Hemoglobin 29, Mean Corpuscular Hemoglobin Concent 31L, Red Cell Distribution Width 14.6H, Platelet Count 382, Mean Platelet Volume 8.7L, Immature Granulocyte % (Auto) 1, Neutrophils (%) (Au to) 63, Lymphocytes (%) (Auto) 23, Monocytes (%) (Auto) 8, Eosinophils (%) (Auto) 4, Basophils (%) (Auto) 1, Neutrophils # (Auto) 4.5, Lymphocytes # (Auto) 1.6, Monocytes # (Auto) 0.6, Eosinophils # (Auto) 0.3, Basophils # (Auto) 0.1, Immature Granulocyte # (Auto) 0.1, Sodium Level 139, Potassium Level 3.6, Chloride Level 104, Carbon Dioxide Level 24, Anion Gap 11, Blood Urea Nitrogen 15, Creatinine 0.79, Estimat Glomerular Filtration Rate 89, BUN/Creatinine Ratio 19, Glucose Level 127H, Calcium Level 9.2, Corrected Calcium 9.9, Total Bilirubin 0.4, Aspartate Amino Transf (AST/SGOT) 41H, Alanine Aminotransferase (ALT/SGPT) 45, Alkaline Phosphatase 107, Total Protein 7.0, Albumin 3.1L Microbiology 11/19/21 Urine Culture - Final, Complete Staphylococcus epidermidis Pending Labs Microbiology Date/Time Source Procedure Growth Status 11/19/21 18:10 Urine Clean Catch Urine Culture - Final Staphylococcus epidermidis Complete Laboratory Tests 11/19/21 16:12: Lab Scanned Report Referred Lab Report 2/28/22 17:00: White Blood Count 5.9, Red Blood Count 3.79, Hemoglobin 10.7, Hematocrit 34, Mean Corpuscular Volume 89, Mean Corpuscular Hemoglobin 28, Mean Corpuscular Hemoglobin Concent 32, Red Cell Distribution Width 14.1, Platelet Count 361, Mean Platelet Volume 8.9, Immature Granulocyte % (Auto) 1, Neutrophils (%) (Auto) 72, Lymphocytes (%) (Auto) 16, Monocytes (%) (Auto) 9, Eosinophils (%) (Auto) 2, Basophils (%) (Auto) 0, Neutrophils # (Auto) 4.3, Lymphocytes # (Auto) 1.0, Monocytes # (Auto) 0.6, Eosinophils # (Auto) 0.1, Basophils # (Auto) 0.0, Immature Granulocyte # (Auto) 0.0, Sodium Level 137, Potassium Level 3.8, Chloride Level 105, Carbon Dioxide Level 23, Anion Gap 9, Blood Urea Nitrogen 16, Creatinine 0.81, Estimat Glomerular Filtration Rate 88, BUN/Creatinine Ratio 20, Glucose Level 114, Lactic Acid Level 1.13, Calcium Level 8.4, Corrected Calcium 9.4, Total Bilirubin 0.5, Aspartate Amino Transf (AST/SGOT) 32, Alanine Aminotransferase (ALT/SGPT) 30, Alkaline Phosphatase 82, Troponin I < 0.028, B- Type Natriuretic Peptide 21.7, Total Protein 6.2, Albumin 2.7, Procalcitonin 0.08 11/19/21 18:10: Urine Color YELLOW, Urine Clarity CLEAR, Urine pH 7.0, Urine Specific [place] 1.020, Urine Protein TRACE, Urine Glucose (UA) NEGATIVE, Urine Ketones TRACE, Urine Nitrite NEGATIVE, Urine Bilirubin NEGATIVE, Urine Urobilinogen 4.0, Urine Leukocyte Esterase TRACE, Urine RBC (Auto) NEGATIVE, Urine RBC NONE, Urine WBC 0-2, Urine Squamous Epithelial Cells NONE, Urine Renal Epithelial Cells NONE, Urine Crystals NONE, Urine Bacteria LARGE, Urine Casts NONE, Urine Mucus NEGATIVE, Urine Culture Indicated YES 11/20/21 04:57: White Blood Count 5.3, Red Blood Count 3.80, Hemoglobin 11.0, Hematocrit 34, Mean Corpuscular Volume 88, Mean Corpuscular Hemoglobin 29, Mean Corpuscular Hemoglobin Concent 33, Red Cell Distribution Width 14.2, Platelet Count 331, Mean Platelet Volume 8.5, Immature Granulocyte % (Auto) 1, Neutrophils (%) (Auto) 65, Lymphocytes (%) (Auto) 21, Monocytes (%) (Auto) 11, Eosinophils (%) (Auto) 2, Basophils (%) (Auto) 0, Neutrophils # (Auto) 3.4, Lymphocytes # (Auto) 1.1, Monocytes # (Auto) 0.6, Eosinophils # (Auto) 0.1, Basophils # (Auto) 0.0, Immature Granulocyte # (Auto) 0.0, Sodium Level 138, Potassium Level 3.7, Chloride Level 109, Carbon Dioxide Level 20, Anion Gap 9, Blood Urea Nitrogen 13, Creatinine 0.70, Estimat Glomerular Filtration Rate 92, BUN/Creatinine Ratio 19, Glucose Level 100, Calcium Level 8.2, Corrected Calcium 9.3, Total Bilirubin 0.5, Aspartate Amino Transf (AST/SGOT) 30, Alanine Aminotransferase (ALT/SGPT) 32, Alkaline Phosphatase 83, Total Protein 6.0, Albumin 2.6 11/21/21 06:18: White Blood Count 5.2, Red Blood Count 3.82, Hemoglobin 11.0, Hematocrit 34, Mean Corpuscular Volume 88, Mean Corpuscular Hemoglobin 29, Mean Corpuscular Hemoglobin Concent 33, Red Cell Distribution Width 14.1, Platelet Count 289, Mean Platelet Volume 8.5, Immature Granulocyte % (Auto) 1, Neutrophils (%) (Auto) 69, Lymphocytes (%) (Auto) 19, Monocytes (%) (Auto) 9, Eosinophils (%) (Auto) 2, Basophils (%) (Auto) 0, Neutrophils # (Auto) 3.6, Lymphocytes # (Auto) 1.0, Monocytes # (Auto) 0.5, Eosinophils # (Auto) 0.1, Basophils # (Auto) 0.0, Immature Granulocyte # (Auto) 0.0, Sodium Level 138, Potassium Level 3.6, Chloride Level 109, Carbon Dioxide Level 19, Anion Gap 10, Blood Urea Nitrogen 11, Creatinine 0.66, Estimat Glomerular Filtration Rate 94, BUN/Creatinine Ratio 17, Glucose Level 103, Calcium Level 8.1, Corrected Calcium 9.3, Total Bilirubin 0.5, Aspartate Amino Transf (AST/SGOT) 37, Alanine Aminotransferase (ALT/SGPT) 30, Alkaline Phosphatase 80, Total Protein 5.6, Albumin 2.5 11/22/21 09:00: Vancomycin Level Trough 6.1 11/23/21 20:30: Vancomycin Level Trough 17.9 11/26/21 09:40: White Blood Count 7.2, Red Blood Count 4.30, Hemoglobin 12.3, Hematocrit 39, Mean Corpuscular Volume 91, Mean Corpuscular Hemoglobin 29, Mean Corpuscular Hemoglobin Concent 31, Red Cell Distribution Width 14.6, Platelet Count 382, Mean Platelet Volume 8.7, Immature Granulocyte % (Auto) 1, Neutrophils (%) (Auto) 63, Lymphocytes (%) (Auto) 23, Monocytes (%) (Auto) 8, Eosinophils (%) (Auto) 4, Basophils (%) (Auto) 1, Neutrophils # (Auto) 4.5, Lymphocytes # (Auto) 1.6, Monocytes # (Auto) 0.6, Eosinophils # (Auto) 0.3, Basophils # (Auto) 0.1, Immature Granulocyte # (Auto) 0.1, Sodium Level 139, Potassium Level 3.6, Chloride Level 104, Carbon Dioxide Level 24, Anion Gap 11, Blood Urea Nitrogen 15, Creatinine 0.79, Estimat Glomerular Filtration Rate 89, BUN/Creatinine Ratio 19, Glucose Level 127, Calcium Level 9.2, Corrected Calcium 9.9, Total Bilirubin 0.4, Aspartate Amino Transf (AST/SGOT) 41, Alanine Aminotransferase (ALT/SGPT) 45, Alkaline Phosphatase 107, Total Protein 7.0, Albumin 3.1 Discharge Home Medications: Active Scripts Active Fludrocortisone Acetate 0.1 Mg Tab 0.1 Mg PO DAILY Stool Softener-Laxative Tablet (Sennosides/Docusate Sodium) 1 Each Tablet 1 Ea PO BID Midodrine HCl 10 Mg Tablet 5 Mg PO TID Acetaminophen 325 Mg Tablet 650 Mg PO Q4H PRN Reported Aspirin EC (Aspirin) 81 Mg Tablet.dr 81 Mg PO DAILY Diclofenac Sodium 100 Gm Gel..gram. 1 Applic TP QID PRN APPLY TO AFFECTED AREAS Pantoprazole Sodium 40 Mg Tablet.dr 40 Mg PO BIDAC Atorvastatin Calcium 80 Mg Tablet 80 Mg PO HS BREAKS THE TAB IN HALF AND TAKES BOTH HALVES AT THE SAME TIME Flomax (Tamsulosin HCl) 0.4 Mg Cap 0.4 Mg PO 1800 Clopidogrel (Clopidogrel Bisulfate) 75 Mg Tablet 75 Mg PO DAILY [employer] (FAMOTIDINE) (Famotidine) 20 Mg Tablet 20 Mg PO DAILY Complete [place] Softgel (Omega3,5,6,7,9 No.1/[place] Oil) 1 Each Capsule 1 Each PO DAILY Instructions to patient/family Please see electronic discharge instructions given to patient. 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
[2021-12-01] MEDS: MIDODRINE 10 MG (PROAMATINE) TAB PO SCH (08:09)
[2021-12-01] MEDS: FLUDROCORTISONE 0.1 MG (FLORINEF) TAB PO SCH (08:10)
[2021-12-01] MEDS: CLOPIDOGREL 75 MG (PLAVIX) TABLET PO SCH (08:10)
[2021-12-01] MEDS: FAMOTIDINE 20 MG (PEPCID) TABLET PO SCH (08:10)
[2021-12-01] MEDS: ASPIRIN E.C. 81 MG (ECOTRIN) TAB PO SCH (08:10)
[2021-12-01] MEDS: SENNA W/DOCUSATE (SENOKOT S) TABLET PO SCH (09:00)
[2021-12-01] MEDS: polyethylene glycoL POWDER 17 GM (MIRALAX) PACK PO SCH (09:00)
[2021-12-01] MEDS: DOCUSATE SODIUM 100 MG (COLACE) CAP PO SCH (09:00)
[2021-12-01 11:15] VITALS: BP 128/68
--- NOTE | 2021-12-03 13:11 | Therapy Team Discharge Summary ---
Therapy Discharge Summary Discharge Recommendations Date of Discharge Dec 01, 2021 at 11:15 Physical Therapy Roll Left to Right (QC): 6 Sit to Lying (QC): 6 Lying to Sitting/Side of Bed(Q: 6 Sit to Stand (QC): 4 Chair/Mzm-lm-Lbonq Xfer(QC): 4 Toilet Transfer (QC): 6 Car Transfer (QC): 6 Does the Patient Walk: Yes Mode of Locomotion: Walk Anticipated Mode of Locomotion: Walk Walk 10 feet (QC): 4 Walk 50 ft with 2 Turns(QC): 4 Walk 150 ft (QC): 6 Walking 10ft on uneven surface: 4 Distance: 60', 50'x2 Gait Assistive Device: Cane Single Point Does the Pt Use a Wheelchair: No Wheel 50 ft with 2 turns (QC): 9 Wheel 150 ft (QC): 9 #of Steps: 12 1 Step (curb) (QC): 6 4 Steps (QC): 6 12 Steps (QC): 6 Balance Sitting Static: Normal Balance Sitting Dynamic: Normal Balance-Standing Static: Fair Picking up an Object (QC): 6 Occupational Therapy Pt admitted to ARU with debility. At [facility], pt was using a SPC for functional mobility ( provides supervision), and assists pt with showering, LE dressing, toileting, and set up feeding. Upon initial evaluation, pt required set up assistance with eating, min A oral care and showering, max A upper body dressing, min A lower body dressing, mod A footwear and max A toileting. OT txs focused on increasing BUE strength and activity tolerance, and increasing safety and independence with ADLs and functional mobility. Pt made functional progress towards goals, but only attained LTGs for eating, oral care and toileting. Pt discharged home with spouse, d/c from OT. Decreased Activ Tolerance, Impaired Self-Care Skills, Restricted Funct UE ROM, Visual-Perceptual Deficit Eating (QC): 5 Oral Hygiene (QC): 6 Shower/Bathe Self (QC): 3 (assist only to dry feet before dressing) Upper Body Dressing (QC): 3 (min) Lower Body Dressing (QC): 3 (min) On/Off Footwear (QC): 3 (mod A) Toileting Hygiene (QC): 6 PT Halfway Goals Halfway Goals PT Halfway Goals Time Frame: Dec 11, 2021 Roll Left to Right (QC): 6 Sit to Lying (QC): 6 Lying-Sitting on Side/Bed(QC): 6 Sit to Stand (QC): 5 Chair/Sih-ra-Pgilh Xfer(QC): 5 Car Transfer (QC): 5 Does the Patient Walk: Yes Walk 10 feet (QC): 5 Walk 10ft-Uneven Surface(QC): 5 Walk 50ft with 2 Turns (QC): 5 Walk 150 ft (QC): 5 Wheel 50 feet with 2 turns (QC: 9 1 Step (curb) (QC): 4 (SBA) 4 Steps (QC): 4 (SBA) 12 Steps (QC): 88 Picking up an Object (QC): 4 (SBA) OT Candy Supervisor Goals Halfway Goals Time Frame: Dec 14, 2021 Eating (QC): 5 (met) Oral Hygiene (QC): 5 (met) Shower/Bathe Self (QC): 4 (notmet) Upper Body Dressing (QC): 4 (not met) Lower Body Dressing (QC): 4 (not met) On/Off Footwear (QC): 4 (not met) Toileting Hygiene (QC): 4 (met) Toilet/Commode Transfer (QC): 5 Additional Goals: 1-Demonstrate ADL Tasks, 2-Verbalize Understanding, 3-ImproveStrength/Jose Carlos 1=Demonstrate adherence to instructed precautions during ADL tasks. 2=Patient will verbalize/demonstrate understanding of assistive devices/modifications for ADL. 3=Patient will improve strength/tolerance for activity to enable patient to perform ADL's. BURKE ROCHA OT Dec 03, 2021 13:11
== END 2021-12-01 11:15 | disposition home health service (06) | DRG 57 ==
PROVIDERS: ADMIT Internal Medicine; ATTEND Internal Medicine
DX: I69.354 Hemiplegia and hemiparesis following cerebral infarction affecting left non-dominant side (principal); R41.4 Neurologic neglect syndrome; N39.0 Urinary tract infection, site not specified; I69.398 Other sequelae of cerebral infarction; Z91.81 History of falling; Z86.16 Personal history of COVID-19; N40.1 Benign prostatic hyperplasia with lower urinary tract symptoms; R35.0 Frequency of micturition; R33.9 Retention of urine, unspecified; E86.0 Dehydration; I25.10 Atherosclerotic heart disease of native coronary artery without angina pectoris; I95.1 Orthostatic hypotension; E78.00 Pure hypercholesterolemia, unspecified; E78.2 Mixed hyperlipidemia; F32.A Depression, unspecified; I10 Essential (primary) hypertension; K21.9 Gastro-esophageal reflux disease without esophagitis; C61 Malignant neoplasm of prostate; M19.91 Primary osteoarthritis, unspecified site; M54.9 Dorsalgia, unspecified; B95.7 Other staphylococcus as the cause of diseases classified elsewhere; Z87.891 Personal history of nicotine dependence; Z95.5 Presence of coronary angioplasty implant and graft; Z88.1 Allergy status to other antibiotic agents; Z88.7 Allergy status to serum and vaccine; Z88.8 Allergy status to other drugs, medicaments and biological substances; Z79.82 Long term (current) use of aspirin
CPT/HCPCS: 36410; 36415; 71045; 76937; 80053; 80202; 81000; 83605; 83880; 84145; 84484; 85025; 87077; 87088; 87186; 93005; 94664

== ENCOUNTER 2022-01-10 10:00 | Day surgery (SDC) | payer MEDICARE ==
[~2022-01-10] VITALS: Ht 170.2 cm; Wt 73.9 kg
[~2022-01-10 10:00] MED LIST changes: +FLDR.1T PO; +SENN1TAB76 PO
[2022-01-10] MEDS ORDERED: LIDOCAINE 2% 20 ML (XYLOCAINE) VIAL ONE (10:39)
--- NOTE | 2022-01-10 11:15 | Cardiac Procedure Note ---
Cardiology Procedures Date of Procedure 01/10/22 INDICATION: History of cerebrovascular accident. PROCEDURE: After informed consent, the patient was prepped and draped in the usual sterile fashion in the left pectoral area. I subsequently infiltrated the fourth intercostal space in the midclavicular line with 2% lidocaine for local anesthesia. I then made a luisa in the skin using the insertion kit. I subsequently inserted a Med[employer]onic LINQ II implantable loop recorder (serial # [id number]) using the insertion tool. Dermabond was then applied to the incision and a sterile antibiotic impregnated dressing was applied. The device was interrogated and there was good R wave detection. IMPRESSION: 1. Status post successful loop recorder insertion with a [employer]onic LINQ II implantable loop recorder (serial # [id number]). Certain portions of this document may have been dictated utilizing voice recognition technology. Inherent to this technology, typographical and grammatical errors may exist. As much as I am diligent to identify and correct these mistakes, some errors may remain in the document. JUAN CARLOS CHACKO JR, MD Jan 10, 2022 11:15
== END 2022-01-10 11:20 | disposition home or self-care (01) ==
LOC: CATH 10:00
PROVIDERS: ATTEND Internal Medicine Cardiovascular Disease
DX: Z86.73 Personal history of transient ischemic attack (TIA), and cerebral infarction without residual deficits (principal); I95.1 Orthostatic hypotension; I10 Essential (primary) hypertension; I65.21 Occlusion and stenosis of right carotid artery; E78.2 Mixed hyperlipidemia; Z79.899 Other long term (current) drug therapy; Z79.82 Long term (current) use of aspirin; E66.3 Overweight; Z68.25 Body mass index [BMI] 25.0-25.9, adult; Z86.16 Personal history of COVID-19; Z85.46 Personal history of malignant neoplasm of prostate; Z87.891 Personal history of nicotine dependence
CPT/HCPCS: 33285; C1764

== ENCOUNTER 2022-01-30 05:30 | Outpatient (CLI) | payer MEDICARE ==
[~2022-01-30] VITALS: Ht 172 cm; Wt 79.8 kg
[2022-01-30] MEDS ORDERED: LEUP22.53 IM (15:43)
[2022-01-30] MEDS ORDERED: LACT1TAB13 PO (15:43)
[2022-01-30] MEDS ORDERED: vitamin d (15:43)
[2022-02-05] MEDS ORDERED: ACET325T38 PO (10:23)
[2022-02-05] MEDS ORDERED: MIDO5TAB3 PO (10:23)
[2022-02-05] MEDS ORDERED: SENN-109 PO (10:23)
[2022-02-05] MEDS ORDERED: SILO8CAP6 PO (10:23)
[2022-02-05] MEDS ORDERED: CHOL200025 PO (10:23)
[2022-02-05] MEDS ORDERED: LACT1CAP62 PO (10:23)
[2022-02-05] MEDS ORDERED: [UNRECOGNIZED DRUG - CODE] PO (10:39)
[2022-02-05] MEDS ORDERED: FLDR.1T PO (10:41)
== END 2022-01-31 06:45 | disposition home or self-care (01) ==
LOC: PREOP 05:30
PROVIDERS: ATTEND Urology
DX: Z01.818 Encounter for other preprocedural examination (principal)

== ENCOUNTER 2022-02-06 09:46 | Inpatient (IN) | payer MEDICARE ==
[~2022-02-06] VITALS: Ht 170.1 cm; Wt 77.0 kg
[~2022-02-06 09:46] MED LIST changes: +ACET325T38 PO; +CHOL200025 PO; -DICL100G27 TP; +DICL100G32 TP; +LACT1CAP62 PO; +LACT1TAB13 PO; +LEUP22.53 IM; +SENN-109 PO; +SILO8CAP6 PO; +[UNRECOGNIZED DRUG - CODE] PO; +vitamin d
--- NOTE | 2022-02-06 11:29 | PM&R Post Admission Assessment ---
PM&R HP Date of Visit: February 06, 2022 Time of Visit: 12:00 History of Present Illness Med-surg dc summary: Pt had an uneventful hospital course. He was admitted for altered mental status and syncope. 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 He had cardiology consulted. PT and OT thought he would be a good candidate for in-patient rehab. He has been there twice before. He was deemed stable for discharge. He will be placed on Lovenox and then transitioned to an oral anticoagulation. Subjective: CC: L Sided Weakness, Debility, Recent fall, Subacute embolic stoke HPI: The patient is an 81 YO male with a PMH of prostate cancer, carotid stenosis, CVA during a carotid artery endarterectomy in 2020, HTN, HLP, CAD with stenting, and orthostatic hypotension, who is admitted to inpatient rehab ilitation for weakness, and debility after a recent fall on 02/04/22. The patient reports that he was standing up from a chair, when his left knee gave out, resulting in him falling. He denies LOC with the fall. His called EMS, which transported him to the ER and he was subsequently admitted to the ICU. MRI of the brain in the ER showed acute to subacute infarcts in the posterior right frontal lobe and right occipital lobe. Given the multiple vascular distributions, an embolic source was suspected. When I saw the patient today, he was in the ICU and laying in his bed comfortably. He denied any dizziness, chest pain, or shortness of breath. He mentioned having some cough. ROS: Constitutional: no fevers, no chills. EENTM: no vision changes Respiratory: no SOB, reports cough Cardiovascular: no chest pains Gastrointestinal: no constipation, no vomiting Musculoskeletal: no calf cramping, L sided weakness Skin: no change in color, no concerning lesions Psychiatric/Neurological: no anxiety, no depression PMH: Surgeries: Eye Surgery, Gallbladder, Vasectomy Cardiac: Coronary Artery Disease, High Cholesterol, Hypotension, Irregular Heartbeat Neurological: Stroke Genitourinary: Benign Prostatic Hyperpl, Prostate Problems, Kidney Stones Prostate cancer Gastrointestinal: Gastroesophageal Reflux, Chronic Constipation, Gall Bladder Disease Musculoskeletal: Arthritis, Chronic Back Pain HEENT: Cataract Cancer: Prostate Did You Recieve Any Treatments: Yes What Type of Treatment Did You: Radiation Psychosocial: Depression History of Blood Disorders: No ALGY: aloe vera (Verified Allergy, Unknown, RASH, 01/30/22) cephalexin (Verified Allergy, Unknown, FACE THROAT SWELLING, 01/30/22) influenza virus vaccine ts [id number] (36 mos,up) (Verified Allergy, Unknown, TERRIBLE REACTION, 01/30/22) SH: Marrital Status: Employed/Student: retired Alcohol Use: Denies Use Smoking Status: Former Smoker Former Smoker, Quit: January 31, 2000 2nd Hand Smoke Exposure: No Recent Foreign Travel: No Contact w/other who traveled: No Recent Hopitalizations: No Objective: Vitals: T: 36.9, HR: 80, RR: 18, BP: 128/70 PE: General Appearance: No Apparent Distress Eyes: Bilateral Eye Normal Inspection, Bilateral Eye PERRL, Mild Ptosis of L ey e HEENT: PERRL/EOMI, mocuous membranes moist, Mandibular Strength Intact Neck: normal inspection, normal ROM Respiratory: Chest Non Tender, Lungs Clear, Normal Breath Sounds, No Accessory Muscle Use, No Respiratory Distress Cardiovascular: Regular Rate, Rhythm, No Edema, No Gallop, No JVD, Normal Peripheral Pulses Gastrointestinal: Normal Bowel Sounds, No Organomegaly, No Pulsatile Mass, Non Tender, Soft Extremity: Normal Capillary Refill, Normal Inspection, Non Tender, No Calf Tenderness, No Pedal Edema, 4/5 strength of L lower and upper extremity. 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 Skin: Normal Color, Warm/Dry Assessment: Left sided weakness Debility Subacute stroke, with MRI showing suspected embolic cause Carotid artery stenosis status post carotid endarterectony in 2020 HX of stroke during carotid endarterectomy resulting in L sided weakness HTN HLP CAD with stenting Prostate cancer on Lupron and radiation seed therapy UTI Hx Urinary frequency Anemia Hypokalemia DVT prophylaxis Plan: Left sided weakness Debility Subacute stroke, with MRI showing suspected embolic cause Carotid artery stenosis status post carotid endarterectony in 2020 HX of stroke during carotid endarterectomy resulting in L sided weakness PT admitted to inpatient rehab, where he will participate in rehabilitation therapies with the goal of regaining strength, balance, and stamina. The patient was comfortable with this plan. We will continue to monitor his neurological status, and strength levels. HTN HLP CAD with stenting Continue home meds Prostate cancer on Lupron and radiation seed therapy UTI Hx Urinary frequency Continue Lupron therapy. Monitor urinary frequency. Anemia Hypokalemia Monitor K+ and hemoglobin. DVT prophylaxis Lovenox 80mg BID. Past Twreeft-Bvvguw-Qnlrab Hx Past Med/Social Hx: Reviewed Nursing Past Med/Soc Hx, Reviewed and Corrections made Patient Social History Marrital Status: Employed/Student: retired Alcohol Use: Denies Use Smoking Status: Former Smoker Former Smoker, Quit: January 31, 2000 2nd Hand Smoke Exposure: No Recent Hopitalizations: No Immunizations Up To Date Tetanus Booster (TDap): Unknown Past Medical History Surgeries: Eye Surgery, Gallbladder, Vascular Surgery, Vasectomy Respiratory: Pneumonia Cardiac: Atrial Fibrillation, Coronary Artery Disease, High Cholesterol, Hypotension, Irregular Heartbeat Neurological: Stroke Genitourinary: Benign Prostatic Hyperpl, Prostate Problems, Kidney Stones Prostate cancer Gastrointestinal: Gastroesophageal Reflux, Chronic Constipation, Gall Bladder Disease Musculoskeletal: Arthritis, Chronic Back Pain HEENT: Cataract Cancer: Prostate Did You Recieve Any Treatments: Yes What Type of Treatment Did You: Radiation Psychosocial: Depression History of Blood Disorders: No PM&R Allergy/Meds/Data Review Allergies Coded Allergies: aloe vera (Verified Allergy, Unknown, RASH, 01/30/22) cephalexin (Verified Allergy, Unknown, FACE THROAT SWELLING, 01/30/22) influenza virus vaccine [id number] (36 mos,up) (Verified Allergy, Unknown, TERRIBLE REACTION, 01/30/22) Home Medications Scheduled Aspirin (Aspirin EC), 81 MG PO DAILY, (Reported) Atorvastatin Calcium (Atorvastatin Calcium), 80 MG PO HS, (Reported) Cholecalciferol (Vitamin D3) (Vitamin D3), 50 MCG PO DAILY, (Reported) Famotidine (Acid Hand Cloth Folder (FAMOTIDINE)), 20 MG PO HS, (Reported) Fludrocortisone Acetate (Fludrocortisone Acetate), 0.1 MG PO DAILY, (Reported) Lactobacillus Acidophilus (Probiotic), 1 EACH PO DAILY, (Reported) Midodrine HCl (Midodrine HCl), 5 MG PO 0900,1500,2100, (Reported) [place]-3/Dha/Epa/Fish Oil (Megared Adv 6X Abs 800 mg Sfgl), 1 EACH PO DAILY, (Reported) Pantoprazole Sodium (Pantoprazole Sodium), 40 MG PO BIDAC, (Reported) Silodosin (Silodosin), 8 MG PO 1800, (Reported) Scheduled PRN Acetaminophen (Tylenol), 650 MG PO Q6H PRN for PAIN-MILD (1-4), (Reported) Diclofenac Sodium (Diclofenac Sodium), 1 APPLIC TP QID PRN for PAIN- BREAKTHROUGH, (Reported) Sennosides/Docusate Sodium (Senna-S Tablet), 1 EACH PO BID PRN for CONSTIPATION- 6TH LINE, (Reported) Discontinued Medications Acetaminophen (Acetaminophen), 650 MG PO Q4H PRN for PAIN-MILD (1-4) Discontinued Reason: Duplicate Order Leuprolide Acetate (Lupron [place]), 22.5 MG IM, (Reported) Discontinued Reason: No Longer Taking Midodrine HCl (Midodrine HCl), 5 MG PO TID Discontinued Reason: Duplicate Order Sennosides/Docusate Sodium (Stool Softener-Laxative Tablet), 1 EA PO BID Discontinued Reason: Duplicate Order Tamsulosin HCl (Flomax), 0.4 MG PO 1800, (Reported) Discontinued Reason: No Longer Taking [vitamin d], Unknown Dose, (Reported) Discontinued Reason: Prescription changed Current Medications Current Medications Reviewed Review of Systems Constitutional: see HPI, malaise, weakness EENTM: no symptoms reported Respiratory: no symptoms reported Cardiovascular: no symptoms reported Gastrointestinal: no symptoms reported Genitourinary: no symptoms reported Musculoskeletal: back pain, joint pain Skin: no symptoms reported Psychiatric/Neurological: Anxiety, Depressed, Numbness, Weakness All Other Systems Reviewed Negative Unless Noted: Yes Physical Exam Physical Exam Vital Signs Capillary Refill : Height, Weight, BMI Height: '" Weight: lbs. oz. kg; 27.39 BMI Method: General Appearance: No Apparent Distress, WD/WN, Chronically ill Eyes: Bilateral Eye Normal Inspection, Bilateral Eye PERRL HEENT: PERRL/EOMI, Normal ENT Inspection, Pharynx Normal Neck: Full Range of Motion, Normal Inspection, Non Tender, Supple, Carotid Bruit Respiratory: Chest Non Tender, Lungs Clear, Normal Breath Sounds, No Accessory Muscle Use, No Respiratory Distress Cardiovascular: Regular Rate, Rhythm, No Edema, No Gallop, No JVD, No Murmur, Normal Peripheral Pulses Gastrointestinal: Normal Bowel Sounds, No Organomegaly, No Pulsatile Mass, Non Tender, Soft Back: Normal Inspection, No CVA Tenderness, No Vertebral Tenderness Extremity: Normal Capillary Refill, Normal Inspection, Normal Range of Motion, Non Tender, No Calf Tenderness, No Pedal Edema Neurologic/Psychiatric: Alert, Oriented x3, life skills instructor II-XII Norm as Tested, Abnormal Gait, Depressed Affect, Motor Weakness (Generalized weakness) Skin: Normal Color, Warm/Dry Lymphatic: No Adenopathy PM&R Medical Assessment & Plan REHAB/MEDICAL ASSESSMENT AND PLAN: REHAB IMPAIRMENT GROUP: CVA ETIOLOGIC DIAGNOSIS: CVA The comorbidities that impact the patients function and/or functional outcome by: Previous CVA with left-sided weakness, suspected atrial fibrillation, oral anticoagulation required, fall risk REHAB PLAN: The patient is being admitted to our comprehensive inpatient rehabilitation facility and can tolerate the intensity of service consisting of at least: 180 minutes of therapy a day, 5 out of 7 days a week Rehab treatment will consist of: PT and OT will focus on regaining function with assistive devices in order to regain enough function to return back to independent living with spouse The patient/family has a good understanding of our discharge process and will benefit from an interdisciplinary inpatient rehabilitation program. The patient has potential to make improvement and is in need of at least two of the following multidisciplinary therapies including but not limited to physical, occupational, speech, and prosthetics and orthotics. Additionally the patient will need services from respiratory, nutritional services, wound care, psychology, etc. (Customize this to each patient). Given the patients complex condition and risk of further medical complications, rehabilitation services cannot be safely or effectively provided at a lower level of care such as a intermediate facility. BARRIERS TO DISCHARGE: Prior stroke with deficit ESTIMATED LOS: 7 days DISPOSITION: Home RELEVANT CHANGES SINCE PREADMISSION SCREENING: I have compared the patients medical and functional status at the time of the preadmission screening and there are: [No changes PROGNOSIS: Good REHABILITATION GOALS: 1. PT and OT will focus on regaining function with assistive devices in order to regain enough function to return back to independent living with spouse All the above goals were reviewed with the patient and he/she is in agreement. By signing this document, I acknowledge that I have personally performed a full physical examination on this patient within 24 hours of admission to this inpatient rehabilitation facility and have determined the patient to be able to tolerate the above course of treatment at an intensive level for a reasonable period of time. I will be completing a detailed individualized Plan of Care for this patient by day #4 of the patients stay based upon the Preadmission Screen, the Post-Admission Evaluation, and the therapy evaluations. Admission Dx/Comorbidities: (1) Acute cerebrovascular accident ICD Codes: I63.9 - Cerebral infarction, unspecified (2) Recurrent syncope Status: Acute ICD Codes: R55 - Syncope and collapse (3) Hemiparesis affecting left side as late effect of cerebrovascular accident Status: Acute ICD Codes: I69.354 - Hemiplegia and hemiparesis following cerebral infarction affecting left non-dominant side (4) Fall at home ICD Codes: W19.XXXA - Unspecified fall, initial encounter; Y92.009 - Unspecified place in unspecified non-institutional (private) residence as the place of occurrence of the external cause (5) Primary hypertension ICD Codes: I10 - Essential (primary) hypertension (6) Seizure Status: Acute ICD Codes: R56.9 - Unspecified convulsions; R19.7 - Diarrhea, unspecified (7) Mixed hyperlipidemia ICD Codes: E78.2 - Mixed hyperlipidemia (8) Orthostatic hypotension Status: Acute ICD Codes: I95.1 - Orthostatic hypotension (9) Prostate cancer Status: Acute ICD Codes: C61 - Malignant neoplasm of prostate (10) Aspiration precautions Status: Acute ICD Codes: Z91.89 - Other specified personal risk factors, not elsewhere classified; R19.7 - Diarrhea, unspecified Assessment/Plan Assessment and Plan Assess & Plan/Chief Complaint Assessment: Subacute stroke suspect embolic in nature on MRI with left-sided weakness Isolated seizure Suspected aspiration pneumonia placed on antibiotics empirically 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 maintained on midodrine Previous stroke with left-sided weakness sustained during carotid endarterectomy CAD previous stents Hypertension Hyperlipidemia Prostate cancer undergoing Lupron and radiation seeds Carotid stenosis status post carotid endarterectomy Urinary frequency chronic GERD Previous UTI Poor nutrition Plan: Inpatient rehab Cardiology consult [facility] and OT GUILLERMO CABELLO DO February 06, 2022 11:29
[2022-02-06 11:30] VITALS: BP 128/70
[2022-02-06] MEDS ORDERED: guaiFENesin/CODEINE (ROBITUSSIN AC) 10ML UDC PO PRN (11:30)
[2022-02-06] MEDS ORDERED: RT-ALBUTEROL SULF 2.5 MG/3 ML PRE-MIX VIAL INH PRN (11:30)
[2022-02-06] MEDS ORDERED: ALPRAZolam 0.25 MG (XANAX) TAB PO PRN (11:30)
[2022-02-06] MEDS ORDERED: ONDANSETRON 4 MG/2 ML (SDV) Z0FRAN IV PRN (11:30)
[2022-02-06] MEDS ORDERED: ACETAMINOPHEN 325 MG TABLET PO PRN ×2 (11:30)
[2022-02-06] MEDS ORDERED: FLEET ENEMA ADULT 1 EA BTL PR PRN (11:30)
[2022-02-06] MEDS ORDERED: DOCUSATE SODIUM 100 MG (COLACE) CAP PO PRN (11:30)
[2022-02-06] MEDS ORDERED: LACTULOSE SYRUP 10GM/15ML (ENULOSE) 30ML UDC PO PRN ×2 (11:30)
[2022-02-06] MEDS ORDERED: LOPERAMIDE 2 MG (IMODIUM) TABLET PO PRN ×2 (11:30)
[2022-02-06] MEDS ORDERED: CALCIUM CARBONATE 500 MG (TUMS) TAB.CHEW PO PRN ×2 (11:30)
[2022-02-06] MEDS ORDERED: diphenhydrAMINE 25 MG TAB (BENADRYL) PO PRN ×2 (11:30)
[2022-02-06] MEDS ORDERED: BISACODYL 10 MG SUPP (DULCOLAX) PR PRN ×2 (11:30)
[2022-02-06] MEDS ORDERED: ONDANSETRON 4 MG (ZOFRAN) ORAL DISSOLVE TAB PO PRN (11:30)
[2022-02-06] MEDS ORDERED: MELATONIN 3 MG TABLET PO PRN ×2 (11:30)
[2022-02-06] MEDS ORDERED: DICLOFENAC 1% GEL 100 GM (VOLTAREN) TUBE TOP PRN (11:30)
--- NOTE | 2022-02-06 12:04 | Occupational Therapy Eval ---
OT Evaluation-General/PLF Medical Diagnosis Admission Date February 06, 2022 at 11:27 Medical Diagnosis: CVA Onset Date: February 04, 2022 Therapy Diagnosis Therapy Diagnosis: reduced adl status Precautions Precautions/Isolations: Seizure, Fall Prevention, Standard Precautions Referral Physician: Radha Whitehead Reason: Evaluation/Treatment Medical History Pertinent Medical History: Arthritis, CVA, GERD Current History Per chart, pt experienced a syncope episode resulting in a fall. Pt denies episode. While being rolled in for a CAT scan, pt had a seizure and was unresponsive and vomiting. Per patient, his assists with dressing due to impaired functional use of LUE from CVA in April 2021. He is able to complete toileting, bathing (with AE) and eating indep. He states he owns a cane but was not using prior to admission. At time of patients last discharge from rehab (11/30/21) he was min-mod a for UB/LB dressing, bathing, and footwear and indep with toileting. Reviewed History: Yes Social History Home: Single Level Current Living Status: Spouse ADL-Prior Level of Function SCALE: Activities may be completed with or without assistive devices. 4-Awpzaunwif-rjqwtck completes the activity by him/herself with no assistance from a helper. 5-Set-up or Clean-up Assistance-helper sets up or cleans up; patient completes activity. [place] assists only prior to or following the activity. 4-Supervision or Touching Assistance-helper provides verbal cues and/or touching/steadying and/or contact guard assistance as patient completes a ctivity. Assistance may be provided throughout the activity or intermittently. 3-Partial/Moderate Assistance-helper does LESS THAN HALF the effort. [place] lifts, holds or supports trunk or limbs, but provides less than half the effort. 2-Substantial/Maximal Assistance-helper does MORE THAN HALF the effort. [place] lifts or holds trunk or limbs and provides more than half the effort. 7-Yaqbrnyui-lafolv does ALL the effort. Patient does none of the effort to complete the activity. Or, the assistance of 2 or more helpers is required for the patient to complete the activity. If activity was not attempted, code reason: 7-Patient Refused. 9-Not Applicable-not attempted and the patient did not perform the activity before the current illness, exacerbation or injury. 10-Not Attempted due to Environmental Limitations-(lack of equipment, weather restraints, etc.). 88-Not Attempted due to Medical Conditions or Safety Concerns. Self Care: Needed Some Help Functional Cognition: Needed Some Help DME/Equipment: Bath Chair, Grab Bars, Shower Drive Self: No OT Current Status Subjective Pt denies pain, agreeable to eval. Co-treat with PT for part of session secondary to fatigue, high fall risk, vision impairment, and need of 2 skilled clinicians to progress indep and safety with adls and mobility. Appearance Pt requesting to return to bed at end of treatment. All needs within reach. Mental Status/Objective Patient Orientation: Person, Place, Situation Attachments: Marino Catheter, IV, Oxygen Current Glasses/Contacts: Yes Hearing Aids: No Hand Dominance: Right Upper Extremity ROM Impaired LUE secondary to CVA in April 2021. AROM shoulder ~45 degrees. PROM shoulder flex: ~80 degrees, full elbow flex/ext with extra time, poor co ordination. finger opposition thumb to index only. ADL-Treatment Eating (QC): 5 Oral Hygiene (QC): 4 Shower/Bathe Self (QC): 7 Upper Body Dressing (QC): 2 Lower Body Dressing (QC): 2 On/Off Footwear (QC): 1 Toileting Hygiene (QC): 1 (marino catheter) Pt requesting to defer shower due to fatigue. Clothing donned seated in w/c. Max a to don shirt as pt required assist to thread LUE, bring overhead, and pull down around torso. Education/cues for fabiano technique and sequencing required. Pt exhibits some impulsivity when donning LB clothing, cues needed for correct orientation and for slowing pace. Assist required to thread LLE into shorts, pt was able to thread R with extra time. He stood with CGA, assist needed to pull clothing over hips, specifically over L hip due to impaired junior account executive/coordination with L hand. Other Treatments Pt stood for hickman bag toss. Focus on promoting increased balance, safety, endurance, LE strength, and functional reach. Due to loss of peripheral vision on L side, hickman bags placed towards L to encourage compensatory strategies (lighthouse scanning). Pt reaching across midline with RUE. Min a for balance required, some knee instability/weakness exhibited when reaching towards Left. Pt fatigues after first round (12 hickman bags) thus needing a sitting rest break before completing again. Education OT Patient Education: Correct positioning, Energy conservation, Modified ADL techniques, Purpose of tx/functional activities, Reviewed precautions, Rehab process, Safety issues, Transfer techniques Teaching Recipient: Patient Teaching Methods: Demonstration, Discussion Response to Teaching: Verbalize Understanding, Return Demonstration, Reinforcement Needed OT Short Term Goals Short Term Goals Time Frame: February 15, 2022 Eatin Oral hygiene: 5 Toileting hygiene: 3 Shower/bathe self: 3 Upper body dressin (mod) Lower body dressin (mod) Putting on/taking off footwear: 2 OT Blunger Loader Goals Longterm Goals Time Frame: Feb 23, 2022 Eating (QC): 5 Oral Hygiene (QC): 5 Toileting Hygiene (QC): 6 Shower/Bathe Self (QC): 5 Upper Body Dressing (QC): 3 (min) Lower Body Dressing (QC): 3 (min) On/Off Footwear (QC): 3 (mod) 1=Demonstrate adherence to instructed precautions during ADL tasks. 2=Patient will verbalize/demonstrate understanding of assistive devices/modifications for ADL. 3=Patient will improve strength/tolerance for activity to enable patient to perform ADL's. OT Education/Plan Problem List/Assessment Assessment: Decreased Activ Tolerance, Decreased Safety Aware, Decreased UE Strength, Impaired Cognition, Impaired Coordination, Impaired Funct Balance, Impaired Self-Care Skills, Restricted Funct UE ROM, Visual-Perceptual Deficit Discharge Recommendations Plan/Recommendations: Continue POC Treatment Plan/Plan of Care Treatment,Training & Education: Yes Patient would benefit from OT for education, treatment and training to promote independence in ADL's, mobility, safety and/or upper extremity function for ADL's. Plan of Care: ADL Retraining, Functional Mobility, Group Exercise/Act as Ind, UE Funct Exercise/Act, UE Neuromus Re-Ed/Coord, Visual/Perceptual Retrain Treatment Duration: Feb 23, 2022 Frequency: At least 5 of 7 days/Wk (IRF) Estimated Hrs Per Day: 1.5 hours per day (75-90 min/day ) Agreement: Yes Rehab Potential: Fair Time/GCodes Start Time: 11:10 Stop Time: 12:10 Total Time Billed (hr/min): 60 Billed Treatment Time 1 visit EVM (10 min) ADL x3 (50 min) Susi Quach OT February 06, 2022 12:04
--- NOTE | 2022-02-06 12:34 | Progress Note ---
BILL PEDRO 02/06/22 1234: Progress Note Subjective: CC: L Sided Weakness, Debility, Recent fall, Subacute embolic stoke HPI: The patient is an 81 YO male with a PMH of prostate cancer, carotid stenosis, CVA during a carotid artery endarterectomy in 2020, HTN, HLP, CAD with stenting, and orthostatic hypotension, who is admitted to inpatient rehabilitation for weakness, and debility after a recent fall on 02/04/22. The patient reports that he was standing up from a chair, when his left knee gave out, resulting in him falling. He denies LOC with the fall. His called EMS, which transported him to the ER and he was subsequently admitted to the ICU. MRI of the brain in the ER showed acute to subacute infarcts in the posterior right frontal lobe and right occipital lobe. Given the multiple vascular distributions, an embolic source was suspected. When I saw the patient today, he was in the ICU and laying in his bed comfortably. He denied any dizziness, chest pain, or shortness of breath. He mentioned having some cough. ROS: Constitutional: no fevers, no chills. EENTM: no vision changes Respiratory: no SOB, reports cough Cardiovascular: no chest pains Gastrointestinal: no constipation, no vomiting Musculoskeletal: no calf cramping, L sided weakness Skin: no change in color, no concerning lesions Psychiatric/Neurological: no anxiety, no depression PMH: Surgeries: Eye Surgery, Gallbladder, Vasectomy Cardiac: Coronary Artery Disease, High Cholesterol, Hypotension, Irregular Heartbeat Neurological: Stroke Genitourinary: Benign Prostatic Hyperpl, Prostate Problems, Kidney Stones Prostate cancer Gastrointestinal: Gastroesophageal Reflux, Chronic Constipation, Gall Bladder Disease Musculoskeletal: Arthritis, Chronic Back Pain HEENT: Cataract Cancer: Prostate Did You Recieve Any Treatments: Yes What Type of Treatment Did You: Radiation Psychosocial: Depression History of Blood Disorders: No ALGY: aloe vera (Verified Allergy, Unknown, RASH, 01/30/22) cephalexin (Verified Allergy, Unknown, FACE THROAT SWELLING, 01/30/22) influenza virus vaccine ts [id number] (36 mos,up) (Verified Allergy, Unknown, TERRIBLE REACTION, 01/30/22) SH: Marrital Status: Employed/Student: retired Alcohol Use: Denies Use Smoking Status: Former Smoker Former Smoker, Quit: January 31, 2000 2nd Hand Smoke Exposure: No Recent Foreign Travel: No Contact w/other who traveled: No Recent Hopitalizations: No Objective: Vitals: T: 36.9, HR: 80, RR: 18, BP: 128/70 PE: General Appearance: No Apparent Distress Eyes: Bilateral Eye Normal Inspection, Bilateral Eye PERRL, Mild Ptosis of L eye HEENT: PERRL/EOMI, mocuous membranes moist, Mandibular Strength Intact Neck: normal inspection, normal ROM Respiratory: Chest Non Tender, Lungs Clear, Normal Breath Sounds, No Accessory Muscle Use, No Respiratory Distress Cardiovascular: Regular Rate, Rhythm, No Edema, No Gallop, No JVD, Normal Peripheral Pulses Gastrointestinal: Normal Bowel Sounds, No Organomegaly, No Pulsatile Mass, Non Tender, Soft Extremity: Normal Capillary Refill, Normal Inspection, Non Tender, No Calf Tend erness, No Pedal Edema, 4/5 strength of L lower and upper extremity. 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 Skin: Normal Color, Warm/Dry Assessment: Left sided weakness Debility Subacute stroke, with MRI showing suspected embolic cause Carotid artery stenosis status post carotid endarterectony in 2020 HX of stroke during carotid endarterectomy resulting in L sided weakness HTN HLP CAD with stenting Prostate cancer on Lupron and radiation seed therapy UTI Hx Urinary frequency Anemia Hypokalemia DVT prophylaxis Plan: Left sided weakness Debility Subacute stroke, with MRI showing suspected embolic cause Carotid artery stenosis status post carotid endarterectony in 2020 HX of stroke during carotid endarterectomy resulting in L sided weakness PT admitted to inpatient rehab, where he will participate in rehabilitation therapies with the goal of regaining strength, balance, and stamina. The patient was comfortable with this plan. We will continue to monitor his neurological status, and strength levels. HTN HLP CAD with stenting Continue home meds Prostate cancer on Lupron and radiation seed therapy UTI Hx Urinary frequency Continue Lupron therapy. Monitor urinary frequency. Anemia Hypokalemia Monitor K+ and hemoglobin. DVT prophylaxis Lovenox 80mg BID. ANABEL CABELLO DO 02/07/22 0601: Supervisory-Addendum Brief Verification & Attestation Participated in pt care: history, MDM, physical Personally performed: exam, history, MDM, supervision of care Care discussed with: Medical Student Procedures: n/a Results interpretation: Verified all documentation Verification and Attestation of Medical Student E/M Service A medical student performed and documented this service in my presence. I reviewed and verified all information documented by the medical student and made modifications to such information, when appropriate. I personally performed the physical exam and medical decision making. Anabel Cabello, February 07, 2022,06:01 BILL PEDRO February 06, 2022 12:34 ANABEL CABELLO DO February 07, 2022 06:01
--- NOTE | 2022-02-06 12:54 | Physical Therapy Evaluation ---
PT Evaluation-General Medical Diagnosis Admission Date February 06, 2022 at 11:27 Medical Diagnosis: CVA Onset Date: February 04, 2022 Therapy Diagnosis Therapy Diagnosis: impaired mobility, strength, balance Precautions Precautions/Isolations: Fall Prevention, Standard Precautions Referral Physician: Anabel Garcia DO Reason for Referral: Evaluation/Treatment Medical History Pertinent Medical History: Arthritis, CVA, GERD Additional Medical History Past Medical History Surgeries: Eye Surgery, Gallbladder, Vasectomy Cardiac: Coronary Artery Disease, High Cholesterol, Hypotension, Irregular Heartbeat Neurological: Stroke Genitourinary: Benign Prostatic Hyperpl, Prostate Problems, Kidney Stones Prostate cancer Gastrointestinal: Gastroesophageal Reflux, Chronic Constipation, Gall Bladder Disease Musculoskeletal: Arthritis, Chronic Back Pain HEENT: Cataract Cancer: Prostate Did You Recieve Any Treatments: Yes Psychosocial: Depression History of Blood Disorders: No Reviewed History: Yes Reviewed History: Yes Social History Home: Single Level Current Living Status: Spouse Entry Into Home: Stairs With Railing PT Steps Into Home: 2 Prior Prior Level of Function SCALE: Activities may be completed with or without assistive devices. 7-Jsymrsmoom-hgdjyhf completes the activity by him/herself with no assistance from a helper. 5-Set-up or Clean-up Assistance-helper sets up or cleans up; patient completes activity. [place] assists only prior to or following the activity. 4-Supervision or Touching Assistance-helper provides verbal cues and/or touching/steadying and/or contact guard assistance as patient completes activity. Assistance may be provided throughout the activity or intermittently. 3-Partial/Moderate Assistance-helper does LESS THAN HALF the effort. [place] lifts, holds or supports trunk or limbs, but provides less than half the effort. 2-Substantial/Maximal Assistance-helper does MORE THAN HALF the effort. [place] lifts or holds trunk or limbs and provides more than half the effort. 1-Xdkodlyml-tktbos does ALL the effort. Patient does none of the effort to complete the activity. Or, the assistance of 2 or more helpers is required for the patient to complete the activity. If activity was not attempted, code reason: 7-Patient Refused. 9-Not Applicable-not attempted and the patient did not perform the activity before the current illness, exacerbation or injury. 10-Not Attempted due to Environmental Limitations-(lack of equipment, weather restraints, etc.). 88-Not Attempted due to Medical Conditions or Safety Concerns. Bed Mobility: 6 Transfers (B,C,W/C): 6 Gait: 6 Indoor Mobility (Ambulation): Independent cane PT Evaluation-Current Subjective Patient in recliner pre tx, agrees to PT, has no complaints of pain. Will be co-treating with OT for part of tx due to poor patient mobility, strength, balance, coordinate UE and LE during activity, safety and reduce risk of falls. Pt/Family Goals to be independent at home Objective Patient Orientation: Person, Place, Situation Attachments: Samano Catheter, IV ROM/Strength ROM Lower Extremities WNL Strength Lower Extremities LLE (hip flexion 3-/5, knee flexion 4-/5, knee extension 4-/5, dorsiflexion 4/5), RLE (hip flexion 4/5, knee flexion 4+/5, knee extension 4/5, dorsiflexion 4/5) Neuromuscular (Tone, Coordination, Reflexes) Patient has some left neglect and left side peripheral vision impairment Sensory Vision: Sensation Right Lower Extremit: Intact Sensation Left Lower Extremity: Impaired Transfers Roll Left & Right (QC): 6 Sit to Lying (QC): 3 Lying to Sitting/Side of Bed(Q: 3 Sit to Stand (QC): 4 Chair/[place]tw-[place] Xfer(QC): 4 Toilet Transfer (QC): 4 Car Transfer (QC): 4 Patient performs rolling with independence, supine <-> sit min assist, sit <-> stand and transfers CGA, car transfer CGA. Patient needs frequent cues for direction mostly due to his visual impairments. Gait Does the Patient Walk?: Yes Mode of Locomotion: Walk Anticipated Mode of Locomotion: Walk Walk 10 feet (QC): 4 Walk 50 ft with 2 Turns(QC): 4 Walk 150 ft (QC): 88 Walking 10ft/uneven surface-QC: 4 Distance: 120'x2 Gait Assistive Device: Cane Single Point Comments/Gait Description Patient can ambulate 120' with a single point cane with CGA (including 50' with at least 2 turns of 90 degrees and 10' over an uneven surface), patient needs frequent cues for direction mostly due to his visual impairments. Wheelchair Training Does the Pt Use a Wheelchair?: No Wheel 50 ft with 2 turns (QC): 9 Wheel 150 ft (QC): 9 Stairs #of Steps: 1 1 Step (curb) (QC): 4 4 Steps (QC): 88 12 Steps (QC): 88 Walking Assistive Device: Cane Patient can go up and down 1 step using a single point cane with CGA, cues for safety and foot placement. Balance Sitting Static: Normal Sitting Dynamic: Normal Standing Static: Good Standing Dynamic: Fair Picking up an Object (QC): 4 (with agent broker) Treatment PT performed bed mobility and transfer training, ambulation, stair training, standing and balance during UE reaching and balance activity, standing and balance during dressing, OT performed dressing, UE positioning and safety during activity, reaching and balance activity. Assessment/Needs Patient in bed post tx with nurse call, phone, tray, all needs met. Patient has impaired mobility, strength, balance. He just needs CGA for ambulation but needs a little assist to get into and out of bed. Rehab Potential: Fair PT Short Term Goals Short Term Goals Time Frame: February 13, 2022 Roll Left & Right: 6 Sit to lyin Lying to sitting on side of be: 4 (SBA) Sit to stand: 4 (SBA) Chair/gze-yb-hozim transfer: 4 (SBA) Walk 10 feet: 4 (SBA) Walk 50 feet with two turns: 4 (SBA) Walk 150 feet: 4 (SBA) PT Nursing Home Goals Talent Development Director Goals PT Talent Development Director Goals Time Frame: Feb 27, 2022 Roll Left & Right (QC): 6 Sit to Lying (QC): 6 Lying-Sitting on Side/Bed(QC): 6 Sit to Stand (QC): 5 Chair/Sgu-ed-Fscjw Xfer(QC): 5 Toilet Transfer (QC): 5 Car Transfer (QC): 5 Does the Patient Walk: Yes Walk 10 feet (QC): 5 Walk 50ft with 2 Turns (QC): 5 Walk 150 ft (QC): 5 Walking 10ft on Uneven Surface: 5 1 Step (curb) (QC): 4 4 Steps (QC): 4 12 Steps (QC): 88 Picking up an Object (QC): 5 Wheel 50 feet with 2 turns (QC: 9 Wheel 150 feet: 9 PT Plan Problem List Problem List: Activity Tolerance, Functional Strength, Safety, Balance, Gait, Transfer, Bed Mobility, ROM Treatment/Plan Treatment Plan: Continue Plan of Care Treatment Plan: Bed Mobility, Education, Functional Activity Jose Carlos, Functional Strength, Group Therapy, Gait, Safety, Therapeutic Exercise, Transfers Treatment Duration: Feb 27, 2022 Frequency: At least 5 of 7 days/Wk (IRF) Estimated Hrs Per Day: 1.5 hours per day Patient and/or Family Agrees t: Yes Safety Risks/Education Patient Education: Gait Training, Transfer Techniques, Steps, Correct Positioning, Safety Issues Teaching Recipient: Patient Teaching Methods: Demonstration, Discussion Response to Teaching: Reinforcement Needed Discharge Recommendations Plan Patient will perform bed mobility and transfer training, balance and endurance training, functional strengthening, stair training, gait training, and education, to improve functional mobility and independence at home. Therapy Discharge Recommendati: Home & Family, Post Acute PT Time/GCodes Time In: 1100 Time Out: 1200 Total Billed Treatment Time: 50 Total Billed Treatment 1 visit EVM 10' FA 40' (only charge 2 units) PT eval from [id number], OT eval from [id number], co-treat from [id number] FELIZ GRIMM PT February 06, 2022 12:54
--- NOTE | 2022-02-06 14:12 | ST Cognitive Linguistic Eval ---
Speech Evaluation-General Medical Diagnosis CVA Onset Date: February 04, 2022 Therapy Diagnosis Therapy Diagnosis: Intact Neurocognitive Skills Precautions Precautions: Fall Precautions/Isolations: Fall Prevention, Standard Precautions Referral Referring Physician: Dr. Anabel Garcia Reason for Referral: Evaluation/Treatment Medical History Pertinent Medical History: Arthritis, CVA, GERD Current History The patient is an 81 year-old male with a past medical history of arthritis, CVA, and GERD, who presented to ARU following a CVA. Reviewed History: Yes Social History Current Living Status: Spouse Speech PLF-Current Status Prior Level of Function The patient denied prior challenges or concerns with speech, language, swallowing, or cognition. Subjective The patient was seated upright in his bed, awake and alert upon entrance to his room by the clinician. The patient greeted the clinician appropriately and was agreeable to participation in the cognitive linguistic assessment. Language Eval: Auditory Comprehends Simple Yes/No Ques: Functional Indent/Objects Multiple Fisher: Functional Ident/Pics in Multiple Fisher: Functional Follows 1-Step Commands: Functional Follows Complex Directions: Functional Follows General Conversations: Functional Language Eval: Verbal Language Completes Spontaneous Greeting: Functional Produces Auto, Serial Info: Functional Imitates Simple Words/Phrases: Functional Word Finding: Mild Requests Basic Needs: Functional States Basic Personal Info: Functional Expresses Complex Ideas: Functional Language Evaluation: Reading Follows Simple Written Direct: Functional Language Evaluation: Writing Writes to Simple Dictation: Functional Cognitive Patient Orientation The patient was independently oriented to self, location, month, day of week, d ate, and year. Objective Cognitive Domain Attention: WNL Memory: WNL Problem Solving: Functional Executive Functions: WNL Visuospatial Skills: WNL Composite Severity Rating: WNL Clock Drawing Severity Rating: WNL Objective Formal/Standardized Tests [facility] Mental Status Exam Results The patient demonstrated a result of +29/30 on the SLUMS correlating to a score of neurocognitive skills within normal limits. Oral Motor/Speech Production Dysarthria and apraxia of speech were not demonstrated. The patient remained 100% intelligible in known and unknown contexts. Impression The patient demonstrated neurocognitive skills within normal limits. Speech Patient Assess Expression of Ideas/Wants: Expression (4) Understanding Verbal Content: Understands (4) Brief Interview-Mental Status: Yes Repetition of Three Words: Three (3) Temporal Orientation: Year: Correct (3) Temporal Orientation: Month: Accurate within 5 days(2) Temporal Orientation: Day: Correct (1) Recall : Wear to say "Sock": Yes, no cue required (2) Recall : Color: Yes, no cue required (2) Recall : Bed: Yes, no cue required (2) Memory/Recall Ability: Current season, Location of own room, Staff names and faces, That he or she is in a hsp/hsp unit Speech-Plan Treatment Plan Speech Therapy Treatment Plan: Discontinue ST Treatment Duration: February 06, 2022 Frequency: 1 time per week Estimated Hrs Per Day: .5 hour per day Rehab Potential: Fair Pt/Family Agrees to Plan: Yes Safety Risks/Education Teaching Recipient: Patient Teaching Methods: Discussion Response to Teaching: Verbalize Understanding Education Topics Provided: Results of SLUMS, Plan of Care Time Speech Therapy Time In: 12:00 Speech Therapy Time Out: 12:30 Total Billed Time: 30 Billed Treatment Time 1, [facility] February 06, 2022 14:12
[2022-02-06] MEDS: CLINDAMYCIN 150 MG (CLEOCIN) CAP PO SCH ×2 (14:15→20:33)
[2022-02-06] MEDS: OMEGA 3 (FISH OIL) 1000 MG CAP PO SCH ×2 (14:15→17:28)
[2022-02-06] MEDS: MIDODRINE 10 MG (PROAMATINE) TAB PO SCH ×2 (14:18→20:36)
--- NOTE | 2022-02-06 14:31 | Therapy Group Daily Note ---
Therapy Daily Group Note Patient Education Topic Home Safety, Other List Below (FWW safety) Exercises LE Seated Exercise, UE Exercise Session Ratio (pt:therapist): 4:1 Goal of Session: Education on ARU Expectations, Home Safety Strategies, UE/LE Strengthing, Use of Adaptive Equipment Goal Met for this Session: Yes Pt Benefit of Group: Contributions to Others, F/U Use of Strategies @Home, Increased Functional Safety, Increased Functional Strength, Improved Cognition, Recognition of Peers, Socialization Other/Notes Pt ambulated using quadcane to [facility] area for OT/PT group. Group consisted of introductions(name, place living, favorite summer activity), socialization, B UE/LE seated exercises, ARU orientation, FWW safety and home safety education. Pt introduced self appropriately and actively listened to peers. Pt was able to interact with peers, give personal stories that involved educational topics and conversations that was discussed during group. Pt a cknowledge understanding of educational topics of home safety, FWW safety and ARU orientation. B UE/LE seat exercises were tolerated and able to complete WFL. After session, pt lying in bed with call light/phone in reach. All needs met in room. Start Time: 13:00 Stop Time: 14:10 Total Billed Treatment Time: 70 Total Billed Treatment 1-AAKASH CASTORENA February 06, 2022 14:31
[2022-02-06] MEDS ORDERED: PATIENT MAY USE OWN MED,SINGLE MED PO SCH (15:30)
[2022-02-06] MEDS: PANTOPRAZOLE 40 MG (PROTONIX) TAB PO SCH (16:13)
[2022-02-06] MEDS ORDERED: CATHETER FLUSH 10 ML SYR IVP PRN (16:15)
[2022-02-06] MEDS: [UNRECOGNIZED DRUG - REMARK] PO SCH (17:27)
[2022-02-06 19:41] VITALS: BP 132/72
[2022-02-06] MEDS: SENNA W/DOCUSATE (SENOKOT S) TABLET PO SCH (20:33)
[2022-02-06] MEDS: DOCUSATE SODIUM 100 MG (COLACE) CAP PO SCH (20:33)
[2022-02-06] MEDS: FAMOTIDINE 20 MG (PEPCID) TABLET PO SCH (20:34)
[2022-02-06] MEDS: ENOXAPARIN 40 MG/0.4 ML (LOVENOX) SYR SC SCH (20:36)
[2022-02-06] MEDS: CATHETER FLUSH 10 ML SYR IVP SCH (20:37)
[2022-02-06] MEDS: polyethylene glycoL POWDER 17 GM (MIRALAX) PACK PO SCH (20:47)
[2022-02-06] MEDS ORDERED: DOCUSATE SODIUM 100 MG (COLACE) CAP PO SCH (21:00)
[2022-02-06] MEDS ORDERED: SENNA W/DOCUSATE (SENOKOT S) TABLET PO SCH (21:00)
[2022-02-07] MEDS: HYDROcodone/APAP 5 MG/325 MG (LORTAB) TAB PO PRN (04:53)
[2022-02-07] MEDS: CATHETER FLUSH 10 ML SYR IVP SCH ×3 (05:57→20:07)
[2022-02-07] MEDS: PANTOPRAZOLE 40 MG (PROTONIX) TAB PO SCH ×2 (05:57→15:58)
[2022-02-07 06:04] LABS: BASOPHILS # (AUTO) 0.1 10^3/uL (0.0-0.1); BASOPHILS % (AUTO) 1 % (0-10); EOSINOPHILS # (AUTO) 0.4 10^3/uL (0.0-0.3); EOSINOPHILS % (AUTO) 5 % (0-10); HEMATOCRIT 31 % (40-54); LYMPHOCYTES # (AUTO) 1.5 10^3/uL (1.0-4.0); LYMPHOCYTES % (AUTO) 21 % (12-44); MEAN CORPUSCULAR HEMOGLOBIN 29 pg (25-34); MEAN CORPUSCULAR HGB CONC 33 g/dL (32-36); MEAN CORPUSCULAR VOLUME 88 fL (80-99); MEAN PLATELET VOLUME 9.9 fL (9.0-12.2); MONOCYTES # (AUTO) 0.6 10^3/uL (0.0-1.0); MONOCYTES % (AUTO) 8 % (0-12); NEUTROPHILS # (AUTO) 4.9 10^3/uL (1.8-7.8); NEUTROPHILS % (AUTO) 66 % (42-75); PLATELET COUNT 167 10^3/uL (130-400); WHITE BLOOD COUNT 7.4 10^3/uL (4.3-11.0)
[2022-02-07 06:19] LABS: ALBUMIN 3.1 GM/DL (3.2-4.5); POTASSIUM 3.6 MMOL/L (3.6-5.0)
[2022-02-07 06:21] LABS: CALCIUM 8.6 MG/DL (8.5-10.1)
[2022-02-07 06:22] LABS: TOTAL PROTEIN 5.7 GM/DL (6.4-8.2)
[2022-02-07 06:24] LABS: BILIRUBIN,TOTAL 0.5 MG/DL (0.1-1.0)
[2022-02-07 06:25] LABS: CREATININE SERUM 0.69 MG/DL (0.60-1.30)
--- NOTE | 2022-02-07 06:46 | PM&R Progress Note ---
Subjective HPI/CC On Admission Date Seen by Provider: February 07, 2022 Time Seen by Provider: 10:00 Subjective/Events-last exam 02/07/22: Pt is moving around really well Bowels moved today and it was dark so I will order a hemoccult Heating pad will be placed on the shoulder We will discontinue the marino catheter if he has retention will consult Dr. Valencia, his urologist Review of Systems General: Fatigue, Malaise Neurological: Weakness Objective Exam Vital Signs Vital Signs Date Time Temp Pulse Resp B/P (MAP) Pulse Ox O2 Delivery O2 Flow Rate FiO2 02/07/22 20:10 Room Air 02/07/22 20:00 37.1 75 18 139/66 (90) 94 Capillary Refill : General Appearance: No Apparent Distress, WD/WN, Chronically ill HEENT: PERRL/EOMI, Normal ENT Inspection, Pharynx Normal Neck: Full Range of Motion, Normal Inspection, Non Tender, Supple, Carotid Bruit Respiratory: Chest Non Tender, Lungs Clear, Normal Breath Sounds, No Accessory Muscle Use, No Respiratory Distress Cardiovascular: Regular Rate, Rhythm, No Edema, No Gallop, No JVD, No Murmur, Normal Peripheral Pulses Gastrointestinal: Normal Bowel Sounds, No Organomegaly, No Pulsatile Mass, Non Tender, Soft Back: Normal Inspection, No CVA Tenderness, No Vertebral Tenderness Extremity: Normal Capillary Refill, Normal Inspection, Normal Range of Motion, Non Tender, No Calf Tenderness, No Pedal Edema Neurologic/Psychiatric: Alert, Oriented x3, pretzel twister II-XII Norm as Tested, Abnormal Gait, Depressed Affect, Motor Weakness (Generalized weakness) Skin: Normal Color, Warm/Dry Lymphatic: No Adenopathy Results/Procedures Lab Laboratory Tests 02/07/22 05:56 Patient resulted labs reviewed. FIM Transfers Therapy Code Descriptions/Definitions Functional [place] Measure: 0=Not Assessed/NA 4=Minimal Assistance 1=Total Assistance 5=Supervision or Setup 2=Maximal Assistance 6=Modified [place] 3=Moderate Assistance 7=Complete IndependenceSCALE: Activities may be completed with or without assistive devices. 7-Kweqzhlodq-muauqco completes the activity by him/herself with no assistance from a helper. 5-Set-up or Clean-up Assistance-helper sets up or cleans up; patient completes activity. [place] assists only prior to or following the activity. 4-Supervision or Touching Assistance-helper provides verbal cues and/or touching/steadying and/or contact guard assistance as patient completes activity. Assistance may be provided throughout the activity or intermittently. 3-Partial/Moderate Assistance-helper does LESS THAN HALF the effort. [place] lifts, holds or supports trunk or limbs, but provides less than half the effort. 2-Substantial/Maximal Assistance-helper does MORE THAN HALF the effort. [place] lifts or holds trunk or limbs and provides more than half the effort. 7-Qjndyzrcu-onhwfb does ALL the effort. Patient does none of the effort to complete the activity. Or, the assistance of 2 or more helpers is required for the patient to complete the activity. If activity was not attempted, code reason: 7-Patient Refused. 9-Not Applicable-not attempted and the patient did not perform the activity before the current illness, exacerbation or injury. 10-Not Attempted due to Environmental Limitations-(lack of equipment, weather restraints, etc.). 88-Not Attempted due to Medical Conditions or Safety Concerns. Roll Left to Right (QC): 6 Sit to Lying (QC): 3 Sit to Stand (QC): 4 Chair/Ovq-zy-Ouxbj Xfer(QC): 4 Car Transfer (QC): 4 Gait Training Does the Patient Walk?: Yes Walk 10 feet (QC): 4 Walk 50 ft with 2 Turns(QC): 4 Walk 150 ft (QC): 88 Walking 10ft/uneven surface-QC: 4 Gait Assistive Device: Cane Single Point Wheelchair Training Does the Pt Use a Wheelchair?: No Wheel 50 ft with 2 turns (QC): 9 Wheel 150 ft (QC): 9 Stair Training #of Steps: 1 1 Step (curb) (QC): 4 4 Steps (QC): 88 12 Steps (QC): 88 Balance Picking up an Object (QC): 4 (with assessment specialist) ADL-Treatment Eating (QC): 5 Oral Hygiene (QC): 4 Shower/Bathe Self (QC): 7 Upper Body Dressing (QC): 2 Lower Body Dressing (QC): 2 On/Off Footwear (QC): 1 Toileting Hygiene (QC): 1 (marino catheter) Assessment/Plan Assessment and Plan Assess & Plan/Chief Complaint Assessment: Subacute stroke suspect embolic in nature on MRI with left-sided weakness Isolated seizure Suspected aspiration pneumonia placed on antibiotics empirically 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 maintained on midodrine Previous stroke with left-sided weakness sustained during carotid endarterectomy CAD previous stents Hypertension Hyperlipidemia Prostate cancer undergoing Lupron and radiation seeds Carotid stenosis status post carotid endarterectomy Urinary frequency chronic GERD Previous UTI Poor nutrition Plan: Inpatient rehab Cardiology consult Supportive [facility] meds PT and OT 02/07/2022: DC catheter Heating pad to shoulder Anticoagulation per Dr. Escobar (1) Acute cerebrovascular accident (2) Recurrent syncope Status: Acute (3) Hemiparesis affecting left side as late effect of cerebrovascular accident Status: Acute (4) Fall at home (5) Primary hypertension (6) Seizure Status: Acute (7) Mixed hyperlipidemia (8) Orthostatic hypotension Status: Acute (9) Prostate cancer Status: Acute (10) Aspiration precautions Status: Acute GUILLERMO CABELLO DO February 07, 2022 06:46
--- NOTE | 2022-02-07 06:48 | Individualized Plan of Care ---
Individualized Plan of Care Rehab Nursing IPOC Order Admission Date February 06, 2022 at 11:27 Current Orders Orders Admission Order(Inpt,Obs,Sdc) (02/06/22 11:19) Vital Signs: Per Unit Policy ( 08,16,00 (02/06/22 11:19) Nilesh Morales (02/06/22 11:19) Sequential Compression Device (02/06/22 11:19) Jewel Bearing Grinder-Inpt Rehab Con (02/06/22 11:19) Rehab Nursing Orders-Ipoc (02/06/22 11:19) Physical Therapy Rehab Orders (02/06/22 11:19) Occupational Therapy Rehab Ord (02/06/22 11:19) Speech Therapy Rehab Orders (02/06/22 11:19) Cbc With Automated Diff (02/07/22 06:00) Comprehensive Metabolic Panel (02/07/22 06:00) Precautions (Aru) (02/06/22 11:19) Weekly Weight WEEK (02/06/22 11:19) Rehab-Intensity Of Therapy (02/06/22 11:19) Initiate Admission Nursing Pro .admission (02/06/22 11:19) Alprazolam Tablet (Xanax Tablet) (02/06/22 11:30) Calcium Carbonate Chew Tablet (Antacid C (02/06/22 11:30) Diphenhydramine Tablet (Benadryl Tablet) (02/06/22 11:30) Docusate Sodium Capsule (Colace Capsule) (02/06/22 21:00) Docusate Sodium Capsule (Colace Capsule) (02/06/22 11:30) Bisacodyl Suppository (Dulcolax Supposit (02/06/22 11:30) Lactulose Oral Solution (Enulose Oral So (02/06/22 11:30) Na Phos/Na Biphos Enema (Fleet Enema Christiano (02/06/22 11:30) Guaifenesin/Codeine Syrup (Robitussin Ac (02/06/22 11:30) Loperamide Tablet (Imodium Tablet) (02/06/22 11:30) Melatonin Tablet (Melatonin Tablet) (02/06/22 11:30) Polyethylene Glycol Powder Pkt (Miralax (02/06/22 21:00) Ondansetron Oral Dissolve Tab (Zofran (02/06/22 11:30) Senna S Tablet (Senokot S Tablet) (02/06/22 21:00) Acetaminophen Tablet/Caplet (Tylenol T (02/06/22 11:30) Code/Resuscitation (02/06/22 11:19) Admission Arrival Bed Request (02/06/22 11:27) Code/Resuscitation (02/06/22 11:26) Activity (02/06/22 11:26) Catheter(Urinary) Insert & Ass 03,15 (02/06/22 11:26) Heart Healthy (02/06/22 Lunch) (Nf) Silodosin (02/06/22 18:00) Acetaminophen Tablet/Caplet (Tylenol T (02/06/22 11:30) Albuterol Pre-Mix Nebs (Rt) (Proventil (02/06/22 11:30) Aspirin Enteric Coated Tablet (Ecotrin T (02/07/22 09:00) Atorvastatin Tablet (Lipitor Tablet) (02/06/22 21:00) Bisacodyl Suppository (Dulcolax Supposit (02/06/22 11:30) Calcium Carbonate Chew Tablet (Antacid C (02/06/22 11:30) Cholecalciferol Capsule/Tablet (Vitamin (02/07/22 09:00) Diclofenac 1% Gel (Voltaren 1% Gel) (02/06/22 11:30) Docusate Sodium Capsule (Colace Capsule) (02/06/22 21:00) Enoxaparin Injection (Lovenox Injection) (02/06/22 21:00) Famotidine Tablet (Pepcid Tablet) (02/06/22 21:00) Fludrocortisone Tablet (Florinef Tablet) (02/07/22 09:00) Hydrocodone/Apap 5/325 Tablet (Lortab 5 (02/06/22 11:30) Lactobacillus Acidophilus Cap (Acidophil (02/07/22 09:00) Lactulose Oral Solution (Enulose Oral So (02/06/22 11:30) Loperamide Tablet (Imodium Tablet) (02/06/22 11:30) Melatonin Tablet (Melatonin Tablet) (02/06/22 11:30) Midodrine Tablet (Proamatine) (02/06/22 15:00) [place] 3 Capsule (Fish Oil Capsule) (02/06/22 13:00) Ondansetron Injection (Zofran Injectio (02/06/22 11:30) Pantoprazole Tablet (Protonix Tablet) (02/06/22 16:00) Senna S Tablet (Senokot S Tablet) (02/06/22 21:00) Diphenhydramine Tablet (Benadryl Tablet) (02/06/22 11:30) Consult Cardiology (02/06/22 11:26) Dietary Consult (02/06/22 11:26) Mat Initiate Protocol (02/06/22 11:26) Svn Small Volume Nebulizer (02/06/22 11:26) Clindamycin Capsule (Cleocin Capsule) (02/06/22 13:00) Patient Visit (02/06/22 ) Speech Sound Lang Comp (02/06/22 ) Treat. Speech/Lang/Voice (02/06/22 ) Patient Visit (02/06/22 ) Functional Activities, Ea 15 (02/06/22 ) Patient Visit (02/06/22 ) Pt Eval Moderate Complexity (02/06/22 ) Functional Activities, Ea 15 (02/06/22 ) Patient Visit (02/06/22 ) Patient May Use Own Med,Single (Patient (02/06/22 15:30) Sodium Chloride Flush (Catheter Flush Sy (02/06/22 16:15) Sodium Chloride Flush (Catheter Flush Sy (02/06/22 22:00) Ekg Tracing (02/07/22 07:23) Heating Pad (02/07/22 10:58) Occult Blood Stool (02/07/22 15:01) Catheter(Urinary) Discontinue (02/07/22 10:58) Enoxaparin Injection (Lovenox Injection) (02/07/22 21:00) Patient Visit (02/07/22 ) Exercise Therap, Ea 15 Min (02/07/22 ) Functional Activities, Ea 15 (02/07/22 ) Gait Training, Ea 15 Min (02/07/22 ) Rivaroxaban Tablet (Xarelto Tablet) (02/07/22 17:00) Rehab Nursing Orders: Ongoing Assess. of Cognitive Status, Ongoing Assess. of Function Status, Bladder Management, Bladder Scan, Bladder Training, Bowel Management, Bowel Training, Disease Management & Educaiton, DVT Prophylaxis, Fall Prevention, Fluid/Electrolyte/Nutrition Mgmt, Infection Prevention, Medication Management & Education, Management of Risks & Complications, Management of Skin Intergrity, Nutrition Management, Pain Management, Patient/Family Support, Safety Management Intensity of Therapy to be met Patient to be seen: Min.3h per day/5 of 7d PT IPOC Problem List: Activity Tolerance, Functional Strength, Safety, Balance, Gait, Transfer, Bed Mobility, ROM Treatment Plan: Continue Plan of Care Bed Mobility, Education, Functional Activity Jose Carlos, Functional Strength, Group Therapy, Gait, Safety, Therapeutic Exercise, Transfers Treatment Duration: Feb 27, 2022 Frequency: At least 5 of 7 days/Wk (IRF) Estimated Hrs Per Day: 1.5 hours per day OT IPOC Problems: Decreased Activ Tolerance, Decreased Safety Aware, Decreased UE Strength, Impaired Cognition, Impaired Coordination, Impaired Funct Balance, Impaired Self-Care Skills, Restricted Funct UE ROM, Visual-Perceptual Deficit OT Treatment, Training and Edu: Yes Plan of Care: ADL Retraining, Functional Mobility, Group Exercise/Act as Ind, UE Funct Exercise/Act, UE Neuromus Re-Ed/Coord, Visual/Perceptual Retrain Treatment Duration: Feb 23, 2022 Frequency: At least 5 of 7 days/Wk (IRF) Estimated Hrs Per Day: 1.5 hours per day (75-90 min/day ) ST IPOC Speech Therapy Treatment Plan: Discontinue ST Treatment Duration: February 06, 2022 Frequency: 1 time per week Estimated Hrs Per Day: .5 hour per day Jewel Bearing Grinder/Case Mgmt Jewel Bearing Grinder/Case Managemen: Discharge Planning Dietitian/Masonry Installer Dietitian/Masonry Installer to monitor nutritional status and make changes and/or recommendations as needed and work with speech pathology on dietary upgrades as the occur. Physician IPOC Medical Issues being managed closely and that require the 24 hour availability of a physician: Recent CVA embolic type requiring anticoagulation with cardiology consultation along with orthostatic hypotension issues will require close monitoring and aggressive rehab to return back to baseline function Medical Issues: Bowel/Bladder Function, DVT Prophylaxis, Falls Precautions, Fluid/Electrolyte/Nutrition Balance, Infection Protection, Pain Management Brief Synthesis of Preadmission Screen, Post-Admission Evaluation, and Therapy Evaluations: PT and OT will focus on regaining function with the use of assistive devices in order to regain enough function close to back to baseline in order to return back home Medical Prognosis: Good Anticipated Length of Stay: 7 days GUILLERMO CABELLO DO February 07, 2022 06:48
[2022-02-07 07:42] VITALS: BP 121/58
[2022-02-07] MEDS: OMEGA 3 (FISH OIL) 1000 MG CAP PO SCH ×3 (08:15→17:21)
--- NOTE | 2022-02-07 08:52 | Physical Therapy Daily Note ---
PT Daily Note-Current Subjective Patient in recliner pre tx, agrees to PT, has no complaints of pain. Appearance Patient in restroom on toilet post tx, knows to call nurse when done. Mental Status Patient Orientation: Person, Place, Situation Attachments: Samano Catheter Transfers SCALE: Activities may be completed with or without assistive devices. 0-Cvpxvislce-verphhq completes the activity by him/herself with no assistance from a helper. 5-Set-up or Clean-up Assistance-helper sets up or cleans up; patient completes activity. [place] assists only prior to or following the activity. 4-Supervision or Touching Assistance-helper provides verbal cues and/or touching/steadying and/or contact guard assistance as patient completes activity. Assistance may be provided throughout the activity or intermittently. 3-Partial/Moderate Assistance-helper does LESS THAN HALF the effort. [place] lifts, holds or supports trunk or limbs, but provides less than half the effort. 2-Substantial/Maximal Assistance-helper does MORE THAN HALF the effort. [place] lifts or holds trunk or limbs and provides more than half the effort. 8-Miovojskn-wcokav does ALL the effort. Patient does none of the effort to complete the activity. Or, the assistance of 2 or more helpers is required for the patient to complete the activity. If activity was not attempted, code reason: 7-Patient Refused. 9-Not Applicable-not attempted and the patient did not perform the activity before the current illness, exacerbation or injury. 10-Not Attempted due to Environmental Limitations-(lack of equipment, weather restraints, etc.). 88-Not Attempted due to Medical Conditions or Safety Concerns. Roll Left & Right (QC): 6 Sit to Lying (QC): 4 Lying to Sitting/Side of Bed(Q: 3 Sit to Stand (QC): 4 Chair/Faj-re-Qaxdy Xfer(QC): 4 Min assist for supine to sit. Gait Training Distance: 120', 100'x2 Exercises supine SAQ for 5 min with 5# ankle weights on both legs. NuStep Minutes: 10 NuStep Workload: 5 Treatments bed mobility and transfers, ambulation, functional strengthening Assessment Current Status: Fair Progress Patient was pretty nauseated with activity, nurse notified and gave him some meds for it. Patient needed extra rests due to nausea. PT Short Term Goals Short Term Goals Time Frame: February 13, 2022 Roll Left & Right: 6 Sit to lyin Lying to sitting on side of be: 4 (SBA) Sit to stand: 4 (SBA) Chair/yoh-dm-qjbmr transfer: 4 (SBA) Walk 10 feet: 4 (SBA) Walk 50 feet with two turns: 4 (SBA) Walk 150 feet: 4 (SBA) PT Controller Instructor Goals [facility] Goals PT Controller Instructor Goals Time Frame: Feb 27, 2022 Roll Left & Right (QC): 6 Sit to Lying (QC): 6 Lying-Sitting on Side/Bed(QC): 6 Sit to Stand (QC): 5 Chair/Noi-iw-Qpctd Xfer(QC): 5 Toilet Transfer (QC): 5 Car Transfer (QC): 5 Does the Patient Walk: Yes Walk 10 feet (QC): 5 Walk 50ft with 2 Turns (QC): 5 Walk 150 ft (QC): 5 Walking 10ft on Uneven Surface: 5 1 Step (curb) (QC): 4 4 Steps (QC): 4 12 Steps (QC): 88 Picking up an Object (QC): 5 Wheel 50 feet with 2 turns (QC: 9 Wheel 150 feet: 9 PT Plan Problem List Problem List: Activity Tolerance, Functional Strength, Safety, Balance, Gait, Transfer, Bed Mobility, ROM Treatment/Plan Treatment Plan: Continue Plan of Care Treatment Plan: Bed Mobility, Education, Functional Activity Jose Carlos, Functional Strength, Group Therapy, Gait, Safety, Therapeutic Exercise, Transfers Treatment Duration: Feb 27, 2022 Frequency: At least 5 of 7 days/Wk (IRF) Estimated Hrs Per Day: 1.5 hours per day Patient and/or Family Agrees t: Yes Safety Risks/Education Patient Education: Gait Training, Transfer Techniques, Correct Positioning, Safety Issues Teaching Recipient: Patient Teaching Methods: Demonstration, Discussion Response to Teaching: Reinforcement Needed Time/GCodes Time In: 0800 Time Out: 0900 Total Billed Treatment Time: 60 Total Billed Treatment 1 visit EX 15' FA 45' FELIZ GRIMM PT February 07, 2022 08:52
[2022-02-07] MEDS ORDERED: ASPIRIN E.C. 81 MG (ECOTRIN) TAB PO SCH (09:00)
[2022-02-07] MEDS: ENOXAPARIN 40 MG/0.4 ML (LOVENOX) SYR SC SCH (09:57)
[2022-02-07] MEDS: MIDODRINE 10 MG (PROAMATINE) TAB PO SCH ×3 (09:57→20:05)
[2022-02-07] MEDS: LACTOBACILLUS ACIDOPHILUS (PROBIOTIC) CAPSULE PO SCH (09:57)
[2022-02-07] MEDS: CLINDAMYCIN 150 MG (CLEOCIN) CAP PO SCH ×3 (09:57→20:04)
[2022-02-07] MEDS: DOCUSATE SODIUM 100 MG (COLACE) CAP PO SCH ×2 (09:58→20:09)
[2022-02-07] MEDS: VITAMIN D3 25 MCG (1,000 UNITS) TABLET PO SCH (09:58)
[2022-02-07] MEDS: FLUDROCORTISONE 0.1 MG (FLORINEF) TAB PO SCH (09:58)
[2022-02-07] MEDS: polyethylene glycoL POWDER 17 GM (MIRALAX) PACK PO SCH ×2 (10:00→19:09)
[2022-02-07] MEDS: SENNA W/DOCUSATE (SENOKOT S) TABLET PO SCH ×2 (10:00→20:09)
--- NOTE | 2022-02-07 11:58 | Occupational Ther Daily Note ---
OT Current Status-Daily Note Subjective Pt dozing in bed, woke easily to name. Pt agrees to therapy though c/o fatigue. No c/o pain. Mental Status/Objective Patient Orientation: Person, Place, Time, Situation Attachments: IV (2 IVs) ADL-Treatment Pt agrees to shower. Supine to EOB min A, EOB to supine independent. Pt ambulated to bathroom with CGA using SPC for safety. Pt able to manipulate cl othing over hips with CGA. Pt completes toilet hygiene in sitting by self. Pt doffs clothing with CGA in standing. Sitting on shower bench 100% of the time to complete shower with SBA for safety. Min A to don shirt. Max A to don underwear/pants due to Samano catheter. Pt able to don/doff shoes by self after set up. Pt stood at sink to complete oral care SBA for safety. Therapy Code Descriptions/Definitions Functional [place] Measure: 0=Not Assessed/NA 4=Minimal Assistance 1=Total Assistance 5=Supervision or Setup 2=Maximal Assistance 6=Modified [place] 3=Moderate Assistance 7=Complete IndependenceSCALE: Activities may be completed with or without assistive devices. 0-Srwsndqpxa-uhpskje completes the activity by him/herself with no assistance from a helper. 5-Set-up or Clean-up Assistance-helper sets up or cleans up; patient completes activity. [place] assists only prior to or following the activity. 4-Supervision or Touching Assistance-helper provides verbal cues and/or touching/steadying and/or contact guard assistance as patient completes activity. Assistance may be provided throughout the activity or intermittently. 3-Partial/Moderate Assistance-helper does LESS THAN HALF the effort. [place] lifts, holds or supports trunk or limbs, but provides less than half the effort. 2-Substantial/Maximal Assistance-helper does MORE THAN HALF the effort. [place] lifts or holds trunk or limbs and provides more than half the effort. 5-Qnywfiwke-rxqrjf does ALL the effort. Patient does none of the effort to complete the activity. Or, the assistance of 2 or more helpers is required for the patient to complete the activity. If activity was not attempted, code reason: 7-Patient Refused. 9-Not Applicable-not attempted and the patient did not perform the activity before the current illness, exacerbation or injury. 10-Not Attempted due to Environmental Limitations-(lack of equipment, weather restraints, etc.). 88-Not Attempted due to Medical Conditions or Safety Concerns. Oral Hygiene (QC): 4 Shower/Bathe Self (QC): 4 Upper Body Dressing (QC): 3 Lower Body Dressing (QC): 2 On/Off Footwear: 5 Toileting Hygiene (QC): 4 Toilet Transfer (QC): 4 Other Treatment Pt ambulated using SPC to therapy gym. Pt attempted to complete arm pulleys though due to increased pain and tightness, pt unable to stretch L shldr with task. Pt then ambulated to therapy mat and positioned in supine to work on massage and stretch to L bicep and shldr to increase AROM and decrease pain/tightness. Pt was able to complete self AROM exercises using SPC with less pain and increase AROM. After session, pt lying in bed with call light/phone in reach. All needs met in room. OT Short Term Goals Short Term Goals Time Frame: February 15, 2022 Eatin Oral hygiene: 5 Toileting hygiene: 3 Shower/bathe self: 3 Upper body dressin (mod) Lower body dressin (mod) Putting on/taking off footwear: 2 OT Mcfp Goals Paint Line Production Supervisor Goals Time Frame: Feb 23, 2022 Eating (QC): 5 Oral Hygiene (QC): 5 Toileting Hygiene (QC): 6 Shower/Bathe Self (QC): 5 Upper Body Dressing (QC): 3 (min) Lower Body Dressing (QC): 3 (min) On/Off Footwear (QC): 3 (mod) 1=Demonstrate adherence to instructed precautions during ADL tasks. 2=Patient will verbalize/demonstrate understanding of assistive devices/modifications for ADL. 3=Patient will improve strength/tolerance for activity to enable patient to perform ADL's. OT Education/Plan Problem List/Assessment Assessment: Decreased Activ Tolerance, Decreased UE Strength, Impaired Self- Care Skills, Restricted Funct UE ROM, Visual-Perceptual Deficit (L visual field cut) Discharge Recommendations Plan/Recommendations: Continue POC Treatment Plan/Plan of Care Patient would benefit from OT for education, treatment and training to promote independence in ADL's, mobility, safety and/or upper extremity function for ADL's. Plan of Care: ADL Retraining, Functional Mobility, Group Exercise/Act as Ind, UE Funct Exercise/Act, UE Neuromus Re-Ed/Coord, Visual/Perceptual Retrain Treatment Duration: Feb 23, 2022 Frequency: At least 5 of 7 days/Wk (IRF) Estimated Hrs Per Day: 1.5 hours per day (75-90 min/day ) Agreement: Yes Rehab Potential: Fair Time/GCodes Start Time: 09:00 Stop Time: 10:30 Total Time Billed (hr/min): 90 Billed Treatment Time 1 visit-ADL 4 (60 min) NM 2 (30 min) AAKASH HODGES February 07, 2022 11:58
--- NOTE | 2022-02-07 14:27 | Physical Therapy Daily Note ---
PT Daily Note-Current Subjective Patient in bed pre tx, agrees to PT, has no complaints of pain. Appearance Patient in bed post tx with nurse call, phone, tray, all needs met. Mental Status Patient Orientation: Person, Place, Situation Transfers SCALE: Activities may be completed with or without assistive devices. 3-Zwxbsgtdpc-uikjgyi completes the activity by him/herself with no assistance from a helper. 5-Set-up or Clean-up Assistance-helper sets up or cleans up; patient completes activity. [place] assists only prior to or following the activity. 4-Supervision or Touching Assistance-helper provides verbal cues and/or touching/steadying and/or contact guard assistance as patient completes activity. Assistance may be provided throughout the activity or intermittently. 3-Partial/Moderate Assistance-helper does LESS THAN HALF the effort. [place] lifts, holds or supports trunk or limbs, but provides less than half the effort. 2-Substantial/Maximal Assistance-helper does MORE THAN HALF the effort. [place] lifts or holds trunk or limbs and provides more than half the effort. 8-Veuqoibgr-qgshth does ALL the effort. Patient does none of the effort to complete the activity. Or, the assistance of 2 or more helpers is required for the patient to complete the activity. If activity was not attempted, code reason: 7-Patient Refused. 9-Not Applicable-not attempted and the patient did not perform the activity before the current illness, exacerbation or injury. 10-Not Attempted due to Environmental Limitations-(lack of equipment, weather restraints, etc.). 88-Not Attempted due to Medical Conditions or Safety Concerns. Roll Left & Right (QC): 4 Sit to Lying (QC): 4 Lying to Sitting/Side of Bed(Q: 4 Sit to Stand (QC): 4 Chair/Nbj-rs-Zedps Xfer(QC): 4 Gait Training Distance: 100'x3 Walk 10 feet (QC): 4 Walk 50 ft with 2 Turns(QC): 4 Gait Persons Needed: 1 Gait Assistive Device: Cane Single Point CGA when turning, SBA going straight forward, occasional cues for direction due to visual impairments Exercises Standing: Heel/toe raises, Mini squats Standing Reps: 20 Treatments bed mobility and transfers, ambulation, LE strengthening Assessment Current Status: Fair Progress improving general mobility PT Short Term Goals Short Term Goals Time Frame: February 13, 2022 Roll Left & Right: 6 Sit to lyin Lying to sitting on side of be: 4 (SBA) Sit to stand: 4 (SBA) Chair/ivf-jt-fohnk transfer: 4 (SBA) Walk 10 feet: 4 (SBA) Walk 50 feet with two turns: 4 (SBA) Walk 150 feet: 4 (SBA) PT Ceo Na Goals Ceo Na Goals PT Group Home Goals Time Frame: Feb 27, 2022 Roll Left & Right (QC): 6 Sit to Lying (QC): 6 Lying-Sitting on Side/Bed(QC): 6 Sit to Stand (QC): 5 Chair/Csp-ls-Pcgin Xfer(QC): 5 Toilet Transfer (QC): 5 Car Transfer (QC): 5 Does the Patient Walk: Yes Walk 10 feet (QC): 5 Walk 50ft with 2 Turns (QC): 5 Walk 150 ft (QC): 5 Walking 10ft on Uneven Surface: 5 1 Step (curb) (QC): 4 4 Steps (QC): 4 12 Steps (QC): 88 Picking up an Object (QC): 5 Wheel 50 feet with 2 turns (QC: 9 Wheel 150 feet: 9 PT Plan Problem List Problem List: Activity Tolerance, Functional Strength, Safety, Balance, Gait, Transfer, Bed Mobility, ROM Treatment/Plan Treatment Plan: Continue Plan of Care Treatment Plan: Bed Mobility, Education, Functional Activity Jose Carlos, Functional Strength, Group Therapy, Gait, Safety, Therapeutic Exercise, Transfers Treatment Duration: Feb 27, 2022 Frequency: At least 5 of 7 days/Wk (IRF) Estimated Hrs Per Day: 1.5 hours per day Patient and/or Family Agrees t: Yes Safety Risks/Education Patient Education: Gait Training, Transfer Techniques, Correct Positioning, Safety Issues Teaching Recipient: Patient Teaching Methods: Demonstration, Discussion Response to Teaching: Reinforcement Needed Time/GCodes Time In: 1355 Time Out: 1425 Total Billed Treatment Time: 30 Total Billed Treatment 1 visit GT 20' EX 10' FELIZ GRIMM PT February 07, 2022 14:27
--- NOTE | 2022-02-07 15:05 | Cardiology Progress Note ---
Progress Note-Cardiology Events since last exam Date Seen by Provider: February 07, 2022 Time Seen by Provider: 14:59 Events since last exam I am following him due to acute/subacute cerebrovascular accident during this hospitalization along with possible paroxysmal atrial fibrillation. He was transferred to our inpatient rehabilitation unit on 02/06. He has been working with physical therapy without issues. He denies any new neurologic complaints since his previous stroke earlier this year. His presenting symptom during this hospitalization was a fall. He denies chest pain, dyspnea, palpitations, syncope, or ankle edema. Certain portions of this document may have been dictated utilizing voice recognition technology. Inherent to this technology, typographical and grammatical errors may exist. As much as I am diligent to identify and correct these mistakes, some errors may remain in the document. Vitals Last set of Vitals Signs Vital Signs 02/07/22 02/07/22 07:42 09:50 Temp 37.3 Pulse 84 Resp 20 B/P (MAP) 121/58 (79) Pulse Ox 90 O2 Delivery Room Air Labs Labs Laboratory Tests 02/07/22 05:56 Exam Vital Signs Vital Signs Date Time Temp Pulse Resp B/P (MAP) Pulse Ox O2 Delivery O2 Flow Rate FiO2 02/07/22 09:50 Room Air 02/07/22 07:42 37.3 84 20 121/58 (79) 90 Physical Exam General: Alert. No acute distress. Eye: No xanthelasma. HENT: Normocephalic. Neck: Jugular venous pressure does not appear elevated. Respiratory: Lungs are clear to auscultation. Respirations are non-labored. Breath sounds are equal. Symmetrical chest wall expansion. Cardiovascular: Normal rate. Regular rhythm. No murmur. No gallop. No edema. Gastrointestinal: Soft. Normal bowel sounds. Skin: Warm. Dry. Neurologic: Alert and oriented to person, place, time. Cranial nerves 3-11 grossly intact. Partial left hemiparesis with weakness of left arm and leg. Psychiatric: Cooperative. Appropriate mood & affect. Labs Laboratory Tests Test 02/07/22 05:56 Range/Units White Blood Count 7.4 4.3-11.0 10^3/uL Red Blood Count 3.47 L 4.30-5.52 10^6/uL Hemoglobin 10.0 L 13.3-17.7 g/dL Hematocrit 31 L 40-54 % Mean Corpuscular Volume 88 80-99 fL Mean Corpuscular Hemoglobin 29 25-34 pg Mean Corpuscular Hemoglobin Concent 33 32-36 g/dL Red Cell Distribution Width 15.0 H 10.0-14.5 % Platelet Count 167 130-400 10^3/uL Mean Platelet Volume 9.9 9.0-12.2 fL Immature Granulocyte % (Auto) 0 % Neutrophils (%) (Auto) 66 42-75 % Lymphocytes (%) (Auto) 21 12-44 % Monocytes (%) (Auto) 8 0-12 % Eosinophils (%) (Auto) 5 0-10 % Basophils (%) (Auto) 1 0-10 % Neutrophils # (Auto) 4.9 1.8-7.8 10^3/uL Lymphocytes # (Auto) 1.5 1.0-4.0 10^3/uL Monocytes # (Auto) 0.6 0.0-1.0 10^3/uL Eosinophils # (Auto) 0.4 H 0.0-0.3 10^3/uL Basophils # (Auto) 0.1 0.0-0.1 10^3/uL Immature Granulocyte # (Auto) 0.0 0.0-0.1 10^3/uL Sodium Level 143 135-145 MMOL/L Potassium Level 3.6 3.6-5.0 MMOL/L Chloride Level 107 98-107 MMOL/L Carbon Dioxide Level 28 21-32 MMOL/L Anion Gap 8 5-14 MMOL/L Blood Urea Nitrogen 12 7-18 MG/DL Creatinine 0.69 0.60-1.30 MG/DL Estimat Glomerular Filtration Rate 92 BUN/Creatinine Ratio 17 Glucose Level 110 H 70-105 MG/DL Calcium Level 8.6 8.5-10.1 MG/DL Corrected Calcium 9.3 8.5-10.1 MG/DL Total Bilirubin 0.5 0.1-1.0 MG/DL Aspartate Amino Transf (AST/SGOT) 20 5-34 U/L Alanine Aminotransferase (ALT/SGPT) 19 0-55 U/L Alkaline Phosphatase 58 40-136 U/L Total Protein 5.7 L 6.4-8.2 GM/DL Albumin 3.1 L 3.2-4.5 GM/DL Diagnosis/Problems Diagnosis/Problems (1) Paroxysmal atrial fibrillation Assessment & Plan: When he was in the intensive care unit his telemetry showed some brief episodes of irregular atrial rhythm that may have been short bursts o f paroxysmal atrial fibrillation. In light of the new stroke in 2 different territories, this is certainly concerning for an embolic stroke due to atrial fibrillation. I will change his aspirin over to rivaroxaban. He should continue on high-dose statin medication. (2) Acute cerebrovascular accident Assessment & Plan: As above, this may have been due to atrial fibrillation. Although we did not see any atrial fibrillation on his implantable loop recorder prior to admission, due to possible atrial fibrillation seen during this hospitalization, I will adjust his oral anticoagulation as above. He does not appear to have any major new neurologic deficits with his most recent stroke. He is now on the inpatient rehabilitation unit for physical therapy and occupational therapy. (3) Mixed hyperlipidemia Assessment & Plan: Continue high-dose statin medication. (4) Orthostatic hypotension Status: Acute Assessment & Plan: He has had problems with severe orthostasis in the past. Continue midodrine and fludrocortisone. (5) Primary hypertension Assessment & Plan: He had a previous history of hypertension but then developed orthostasis and all of his antihypertensive medication was discontinued. (6) Seizure Status: Acute Assessment & Plan: He had a seizure in the emergency room but no evidence of recurrence. This may have been related to the acute cerebrovascular accident. JUAN CARLOS CHACKO JR, MD February 07, 2022 15:05
[2022-02-07] MEDS: [UNRECOGNIZED DRUG - REMARK] PO SCH (17:28)
[2022-02-07] MEDS: RIVAROXABAN 20 MG TABLET (XARELTO) PO SCH (17:28)
[2022-02-07 20:00] VITALS: BP 139/66
[2022-02-07] MEDS: FAMOTIDINE 20 MG (PEPCID) TABLET PO SCH (20:04)
[2022-02-07] MEDS ORDERED: ENOXAPARIN 80 MG/0.8 ML (LOVENOX) SYR SC SCH (21:00)
[2022-02-08] MEDS: CATHETER FLUSH 10 ML SYR IVP SCH ×3 (06:03→20:10)
[2022-02-08] MEDS: PANTOPRAZOLE 40 MG (PROTONIX) TAB PO SCH ×2 (06:03→15:57)
--- NOTE | 2022-02-08 06:04 | PM&R Progress Note ---
Subjective HPI/CC On Admission Date Seen by Provider: February 08, 2022 Time Seen by Provider: 11:30 Subjective/Events-last exam 02/08/22: Pt is doing really well Voiding well Bowels moved yesterday Supportive care will continue 02/07/22: Pt is moving around really well Bowels moved today and it was dark so I will order a hemoccult Heating pad will be placed on the shoulder We will discontinue the marino catheter if he has retention will consult Dr. Valencia, his urologist Review of Systems General: Fatigue, Malaise Neurological: Incoordination Objective Exam Vital Signs Vital Signs Date Time Temp Pulse Resp B/P (MAP) Pulse Ox O2 Delivery O2 Flow Rate FiO2 02/08/22 20:14 Room Air 02/08/22 20:06 100 02/08/22 19:30 37.1 20 133/80 (97) 96 Capillary Refill : General Appearance: No Apparent Distress, WD/WN, Chronically ill HEENT: PERRL/EOMI, Normal ENT Inspection, Pharynx Normal Neck: Full Range of Motion, Normal Inspection, Non Tender, Supple, Carotid Bruit Respiratory: Chest Non Tender, Lungs Clear, Normal Breath Sounds, No Accessory Muscle Use, No Respiratory Distress Cardiovascular: Regular Rate, Rhythm, No Edema, No Gallop, No JVD, No Murmur, Normal Peripheral Pulses Gastrointestinal: Normal Bowel Sounds, No Organomegaly, No Pulsatile Mass, Non Tender, Soft Back: Normal Inspection, No CVA Tenderness, No Vertebral Tenderness Extremity: Normal Capillary Refill, Normal Inspection, Normal Range of Motion, Non Tender, No Calf Tenderness, No Pedal Edema Neurologic/Psychiatric: Alert, Oriented x3, senior database administrator II-XII Norm as Tested, Abnormal Gait, Depressed Affect, Motor Weakness (Generalized weakness) Skin: Normal Color, Warm/Dry Lymphatic: No Adenopathy Results/Procedures Lab Patient resulted labs reviewed. FIM Transfers Therapy Code Descriptions/Definitions Functional [place] Measure: 0=Not Assessed/NA 4=Minimal Assistance 1=Total Assistance 5=Supervision or Setup 2=Maximal Assistance 6=Modified At[place] 3=Moderate Assistance 7=Complete IndependenceSCALE: Activities may be completed with or without assistive devices. 3-Dytzcrbpcf-wmmrolo completes the activity by him/herself with no assistance from a helper. 5-Set-up or Clean-up Assistance-helper sets up or cleans up; patient completes activity. [place] assists only prior to or following the activity. 4-Supervision or Touching Assistance-helper provides verbal cues and/or touching/steadying and/or contact guard assistance as patient completes activity. Assistance may be provided throughout the activity or intermittently. 3-Partial/Moderate Assistance-helper does LESS THAN HALF the effort. [place] lifts, holds or supports trunk or limbs, but provides less than half the effort. 2-Substantial/Maximal Assistance-helper does MORE THAN HALF the effort. [place] lifts or holds trunk or limbs and provides more than half the effort. 6-Nlncqspqg-kzoomz does ALL the effort. Patient does none of the effort to complete the activity. Or, the assistance of 2 or more helpers is required for the patient to complete the activity. If activity was not attempted, code reason: 7-Patient Refused. 9-Not Applicable-not attempted and the patient did not perform the activity before the current illness, exacerbation or injury. 10-Not Attempted due to Environmental Limitations-(lack of equipment, weather restraints, etc.). 88-Not Attempted due to Medical Conditions or Safety Concerns. Roll Left to Right (QC): 4 Sit to Lying (QC): 4 Sit to Stand (QC): 4 Chair/Glz-qh-Ngzpp Xfer(QC): 4 Car Transfer (QC): 4 Gait Training Does the Patient Walk?: Yes Distance: 100'x3 Walk 10 feet (QC): 4 Walk 50 ft with 2 Turns(QC): 4 Walk 150 ft (QC): 88 Walking 10ft/uneven surface-QC: 4 Gait Persons Needed: 1 Gait Assistive Device: Cane Single Point Wheelchair Training Does the Pt Use a Wheelchair?: No Wheel 50 ft with 2 turns (QC): 9 Wheel 150 ft (QC): 9 Stair Training #of Steps: 1 1 Step (curb) (QC): 4 4 Steps (QC): 88 12 Steps (QC): 88 Balance Picking up an Object (QC): 4 (with straight cutter) ADL-Treatment Eating (QC): 5 Oral Hygiene (QC): 4 Shower/Bathe Self (QC): 4 Upper Body Dressing (QC): 3 Lower Body Dressing (QC): 2 On/Off Footwear (QC): 5 Toileting Hygiene (QC): 4 Toilet Transfer (QC): 4 Assessment/Plan Assessment and Plan Assess & Plan/Chief Complaint Assessment: Subacute stroke suspect embolic in nature on MRI with left-sided weakness Isolated seizure Suspected aspiration pneumonia placed on antibiotics empirically 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 maintained on midodrine Previous stroke with left-sided weakness sustained during carotid endarterectomy CAD previous stents Hypertension Hyperlipidemia Prostate cancer undergoing Lupron and radiation seeds Carotid stenosis status post carotid endarterectomy Urinary frequency chronic GERD Previous UTI Poor nutrition Plan: Inpatient rehab Cardiology consult Supportive [facility] meds PT and OT 02/07/2022: DC catheter Heating pad to shoulder Anticoagulation per Dr. Escobar 02/08: Monitor closely Doing well (1) Paroxysmal atrial fibrillation Assessment & Plan: When he was in the intensive care unit his telemetry showed some brief episodes of irregular atrial rhythm that may have been short bursts of paroxysmal atrial fibrillation. In light of the new stroke in 2 different territories, this is certainly concerning for an embolic stroke due to atrial fibrillation. I will change his aspirin over to rivaroxaban. He should continue on high-dose statin medication. (2) Acute cerebrovascular accident Assessment & Plan: As above, this may have been due to atrial fibrillation. Although we did not see any atrial fibrillation on his implantable loop recorder prior to admission, due to possible atrial fibrillation seen during this hospitalization, I will adjust his oral anticoagulation as above. He does not appear to have any major new neurologic deficits with his most recent stroke. He is now on the inpatient rehabilitation unit for physical therapy and occupational therapy. (3) Mixed hyperlipidemia Assessment & Plan: Continue high-dose statin medication. (4) Orthostatic hypotension Status: Acute Assessment & Plan: He has had problems with severe orthostasis in the past. Continue midodrine and fludrocortisone. (5) Primary hypertension Assessment & Plan: He had a previous history of hypertension but then developed orthostasis and all of his antihypertensive medication was discontinued. (6) Seizure Status: Acute Assessment & Plan: He had a seizure in the emergency room but no evidence of recurrence. This may have been related to the acute cerebrovascular accident. GUILLERMO CABELLO DO February 08, 2022 06:04
[2022-02-08 07:22] VITALS: BP 137/67
[2022-02-08] MEDS: OMEGA 3 (FISH OIL) 1000 MG CAP PO SCH ×3 (08:14→17:18)
[2022-02-08] MEDS: LACTOBACILLUS ACIDOPHILUS (PROBIOTIC) CAPSULE PO SCH (08:14)
[2022-02-08] MEDS: MIDODRINE 10 MG (PROAMATINE) TAB PO SCH ×3 (08:14→20:09)
[2022-02-08] MEDS: CLINDAMYCIN 150 MG (CLEOCIN) CAP PO SCH (08:14)
[2022-02-08] MEDS: VITAMIN D3 25 MCG (1,000 UNITS) TABLET PO SCH (08:14)
[2022-02-08] MEDS: FLUDROCORTISONE 0.1 MG (FLORINEF) TAB PO SCH (08:14)
--- NOTE | 2022-02-08 08:34 | Cardiology Progress Note ---
Progress Note-Cardiology Events since last exam Date Seen by Provider: February 08, 2022 Time Seen by Provider: 08:33 Events since last exam I am following him due to acute/subacute stroke and probable atrial fibrillation. He remains on our inpatient rehabilitation facility. He denies chest discomfort, dyspnea, palpitations, syncope, or ankle edema. Certain portions of this document may have been dictated utilizing voice r ecognition technology. Inherent to this technology, typographical and grammatical errors may exist. As much as I am diligent to identify and correct these mistakes, some errors may remain in the document. Vitals Last set of Vitals Signs Vital Signs 02/08/22 07:22 Temp 37.0 Pulse 95 Resp 18 B/P (MAP) 137/67 (90) Pulse Ox 91 O2 Delivery Room Air Exam Vital Signs Vital Signs Date Time Temp Pulse Resp B/P (MAP) Pulse Ox O2 Delivery O2 Flow Rate FiO2 02/08/22 07:22 37.0 95 18 137/67 (90) 91 Room Air Physical Exam General: Alert. No acute distress. Eye: No xanthelasma. HENT: Normocephalic. Neck: Jugular venous pressure does not appear elevated. Respiratory: Lungs are clear to auscultation. Respirations are non-labored. Breath sounds are equal. Symmetrical chest wall expansion. Cardiovascular: Normal rate. Regular rhythm. No murmur. No gallop. No edema. Gastrointestinal: Soft. Normal bowel sounds. Skin: Warm. Dry. Neurologic: Alert and oriented to person, place, time. Cranial nerves 3-11 grossly intact. Partial left hemiparesis with weakness of left arm and leg, unchanged from previous stroke over 1 month ago. Psychiatric: Cooperative. Appropriate mood & affect. Labs Laboratory Tests Test 02/07/22 15:00 Range/Units Stool Occult Blood Immunoassay NEGATIVE NEGATIVE Diagnosis/Problems Diagnosis/Problems (1) Paroxysmal atrial fibrillation Assessment & Plan: When he was in the intensive care unit his telemetry showed some brief episodes of irregular atrial rhythm that may have been short bursts of paroxysmal atrial fibrillation. In light of the new stroke in 2 different territories, this is certainly concerning for an embolic stroke due to atrial fibrillation. I changed his aspirin over to rivaroxaban. He should continue on high-dose statin medication. (2) Acute cerebrovascular accident Assessment & Plan: As above, this may have been due to atrial fibrillation. Although we did not see any atrial fibrillation on his implantable loop recorder prior to admission, due to possible atrial fibrillation seen during this hospitalization, He does not appear to have any major new neurologic deficits with his most recent stroke. He will continue with physical therapy on the inpatient rehabilitation unit for physical therapy and occupational therapy. (3) Mixed hyperlipidemia Assessment & Plan: Continue high-dose statin medication. (4) Orthostatic hypotension Status: Acute Assessment & Plan: He has had problems with severe orthostasis in the past. Continue midodrine and fludrocortisone. (5) Primary hypertension Assessment & Plan: He had a previous history of hypertension but then developed orthostasis and all of his antihypertensive medication was discontinued. (6) Seizure Status: Acute Assessment & Plan: He had a seizure in the emergency room but no evidence of recurrence. This may have been related to the acute cerebrovascular accident. JUAN CARLOS CHACKO JR, MD February 08, 2022 08:34
[2022-02-08] MEDS: SENNA W/DOCUSATE (SENOKOT S) TABLET PO SCH ×2 (08:53→20:10)
[2022-02-08] MEDS: polyethylene glycoL POWDER 17 GM (MIRALAX) PACK PO SCH ×2 (08:53→19:29)
[2022-02-08] MEDS: DOCUSATE SODIUM 100 MG (COLACE) CAP PO SCH ×2 (08:53→20:10)
[2022-02-08] MEDS: HYDROcodone/APAP 5 MG/325 MG (LORTAB) TAB PO PRN ×2 (09:00→23:53)
--- NOTE | 2022-02-08 09:25 | Physical Therapy Daily Note ---
PT Daily Note-Current Subjective Patient in bed pre tx, agrees to PT, has 9/10 pain in left knee, nurse notified and he got pain meds during tx. Appearance Patient in bed post tx with nurse call, phone, tray, all needs met. Mental Status Patient Orientation: Person, Place, Situation Transfers SCALE: Activities may be completed with or without assistive devices. 9-Yehikhoods-donrgai completes the activity by him/herself with no assistance from a helper. 5-Set-up or Clean-up Assistance-helper sets up or cleans up; patient completes activity. [place] assists only prior to or following the activity. 4-Supervision or Touching Assistance-helper provides verbal cues and/or touching/steadying and/or contact guard assistance as patient completes activity. Assistance may be provided throughout the activity or intermittently. 3-Partial/Moderate Assistance-helper does LESS THAN HALF the effort. [place] lifts, holds or supports trunk or limbs, but provides less than half the effort. 2-Substantial/Maximal Assistance-helper does MORE THAN HALF the effort. [place] lifts or holds trunk or limbs and provides more than half the effort. 9-Rlxpzqned-hnbdwf does ALL the effort. Patient does none of the effort to complete the activity. Or, the assistance of 2 or more helpers is required for the patient to complete the activity. If activity was not attempted, code reason: 7-Patient Refused. 9-Not Applicable-not attempted and the patient did not perform the activity before the current illness, exacerbation or injury. 10-Not Attempted due to Environmental Limitations-(lack of equipment, weather restraints, etc.). 88-Not Attempted due to Medical Conditions or Safety Concerns. Roll Left & Right (QC): 6 Sit to Lying (QC): 6 Lying to Sitting/Side of Bed(Q: 3 Sit to Stand (QC): 4 Chair/Ohl-bn-Ogltt Xfer(QC): 4 Toilet Transfer (QC): 4 after getting back to his room patient has to use the toilet, needs some assist with pants on the left side Gait Training Distance: 120'x3 Walk 10 feet (QC): 4 Walk 50 ft with 2 Turns(QC): 4 Gait Persons Needed: 1 Gait Assistive Device: Cane Single Point SBA, better speed and stability today Exercises Supine Ex: Ankle pumps, Quad Set, Glut sets, Heel Slides, Straight leg raise, Hip abd/add Supine Reps: 20 SAQ alternating for 5 min NuStep Minutes: 15 NuStep Workload: 5 (LUE not used) Treatments bed mobility and transfers, ambulation, functional strengthening Assessment Current Status: Fair Progress changed tx due to severe left knee pain, patient tolerated tx well PT Short Term Goals Short Term Goals Time Frame: February 13, 2022 Roll Left & Right: 6 Sit to lyin Lying to sitting on side of be: 4 (SBA) Sit to stand: 4 (SBA) Chair/bep-bh-owrub transfer: 4 (SBA) Walk 10 feet: 4 (SBA) Walk 50 feet with two turns: 4 (SBA) Walk 150 feet: 4 (SBA) PT Orthotic Finish Grinding Technician Goals Orthotic Finish Grinding Technician Goals PT Orthotic Finish Grinding Technician Goals Time Frame: Feb 27, 2022 Roll Left & Right (QC): 6 Sit to Lying (QC): 6 Lying-Sitting on Side/Bed(QC): 6 Sit to Stand (QC): 5 Chair/Qtk-uj-Fnzyz Xfer(QC): 5 Toilet Transfer (QC): 5 Car Transfer (QC): 5 Does the Patient Walk: Yes Walk 10 feet (QC): 5 Walk 50ft with 2 Turns (QC): 5 Walk 150 ft (QC): 5 Walking 10ft on Uneven Surface: 5 1 Step (curb) (QC): 4 4 Steps (QC): 4 12 Steps (QC): 88 Picking up an Object (QC): 5 Wheel 50 feet with 2 turns (QC: 9 Wheel 150 feet: 9 PT Plan Problem List Problem List: Activity Tolerance, Functional Strength, Safety, Balance, Gait, Transfer, Bed Mobility, ROM Treatment/Plan Treatment Plan: Continue Plan of Care Treatment Plan: Bed Mobility, Education, Functional Activity Jose Carlos, Functional Strength, Group Therapy, Gait, Safety, Therapeutic Exercise, Transfers Treatment Duration: Feb 27, 2022 Frequency: At least 5 of 7 days/Wk (IRF) Estimated Hrs Per Day: 1.5 hours per day Patient and/or Family Agrees t: Yes Safety Risks/Education Patient Education: Gait Training, Transfer Techniques, Correct Positioning, Safety Issues Teaching Recipient: Patient Teaching Methods: Demonstration, Discussion Response to Teaching: Reinforcement Needed Time/GCodes Time In: 829 Time Out: 929 Total Billed Treatment Time: 60 Total Billed Treatment 1 visit EX 30' FA 30' FELIZ GRIMM PT February 08, 2022 09:25
--- NOTE | 2022-02-08 10:48 | Physical Therapy Daily Note ---
PT Daily Note-Current Subjective Patient in therapy gym pre tx, agrees to PT, has severe left knee pain. Will be co-treating with OT due to poor patient mobility, strength, endurance, left hemiparesis, severe knee pain with activity, coordinate UE and LE during activity, safety and reduce risk of falls. Appearance Patient in room post tx with OT Mental Status Patient Orientation: Person, Place, Situation Transfers SCALE: Activities may be completed with or without assistive devices. 2-Zctviqktvx-pwrrpgt completes the activity by him/herself with no assistance from a helper. 5-Set-up or Clean-up Assistance-helper sets up or cleans up; patient completes activity. [place] assists only prior to or following the activity. 4-Supervision or Touching Assistance-helper provides verbal cues and/or touching/steadying and/or contact guard assistance as patient completes activity. Assistance may be provided throughout the activity or intermittently. 3-Partial/Moderate Assistance-helper does LESS THAN HALF the effort. [place] lifts, holds or supports trunk or limbs, but provides less than half the effort. 2-Substantial/Maximal Assistance-helper does MORE THAN HALF the effort. [place] lifts or holds trunk or limbs and provides more than half the effort. 3-Svjhjultz-zxwagt does ALL the effort. Patient does none of the effort to complete the activity. Or, the assistance of 2 or more helpers is required for the patient to complete the activity. If activity was not attempted, code reason: 7-Patient Refused. 9-Not Applicable-not attempted and the patient did not perform the activity before the current illness, exacerbation or injury. 10-Not Attempted due to Environmental Limitations-(lack of equipment, weather restraints, etc.). 88-Not Attempted due to Medical Conditions or Safety Concerns. Sit to Lying (QC): 6 Sit to Stand (QC): 4 Chair/Hxy-sb-Hgeyi Xfer(QC): 4 Exercises Patient performed standing activity reaching to each side to work on balance, stability, UE ROM and then performed activity ambulating without AD grabbing cones and taking them to a destination working on balance and ambulation. Treatments PT worked on balance and standing and ambulation, OT worked on UE positioning and safety during activity, UE ROM. Assessment Current Status: Fair Progress improving balance PT Short Term Goals Short Term Goals Time Frame: February 13, 2022 Roll Left & Right: 6 Sit to lyin Lying to sitting on side of be: 4 (SBA) Sit to stand: 4 (SBA) Chair/ufc-xk-pcrdn transfer: 4 (SBA) Walk 10 feet: 4 (SBA) Walk 50 feet with two turns: 4 (SBA) Walk 150 feet: 4 (SBA) PT Acoustical Installer Goals Mcfp Goals PT Mcfp Goals Time Frame: Feb 27, 2022 Roll Left & Right (QC): 6 Sit to Lying (QC): 6 Lying-Sitting on Side/Bed(QC): 6 Sit to Stand (QC): 5 Chair/Cia-zh-Jgxep Xfer(QC): 5 Toilet Transfer (QC): 5 Car Transfer (QC): 5 Does the Patient Walk: Yes Walk 10 feet (QC): 5 Walk 50ft with 2 Turns (QC): 5 Walk 150 ft (QC): 5 Walking 10ft on Uneven Surface: 5 1 Step (curb) (QC): 4 4 Steps (QC): 4 12 Steps (QC): 88 Picking up an Object (QC): 5 Wheel 50 feet with 2 turns (QC: 9 Wheel 150 feet: 9 PT Plan Problem List Problem List: Activity Tolerance, Functional Strength, Safety, Balance, Gait, Transfer, Bed Mobility, ROM Treatment/Plan Treatment Plan: Continue Plan of Care Treatment Plan: Bed Mobility, Education, Functional Activity Jose Carlos, Functional Strength, Group Therapy, Gait, Safety, Therapeutic Exercise, Transfers Treatment Duration: Feb 27, 2022 Frequency: At least 5 of 7 days/Wk (IRF) Estimated Hrs Per Day: 1.5 hours per day Patient and/or Family Agrees t: Yes Safety Risks/Education Patient Education: Gait Training, Transfer Techniques, Correct Positioning, Safety Issues Teaching Recipient: Patient Teaching Methods: Demonstration, Discussion Response to Teaching: Reinforcement Needed Time/GCodes Time In: 1015 Time Out: 1045 Total Billed Treatment Time: 30 Total Billed Treatment 1 visit NM 30' co-treated for 30' FELIZ GRIMM PT February 08, 2022 10:48
--- NOTE | 2022-02-08 10:59 | Occupational Ther Daily Note ---
OT Current Status-Daily Note Subjective Pt alert, lying in bed. Agrees to therapy. Pt c/o pain in knee, does not rate. No other pain noted. Physician aware and will be discussing with orthopedic physician. Mental Status/Objective Patient Orientation: Person, Place, Time, Situation Attachments: IV (2) ADL-Treatment Nrsg requested to have pt wear KALYANI hose. STARR donned stocking for pt. Pt supine to EOB by self in supine. Pt sat EOB to initiate donning shoes, pt not positioned correctly in sitting to accomplish task independently. Pt transferred to chair and donned shoes independently using figure 4 technique to slide shoes over toes then placed foot on ground and bent over, used finger to slide back of shoe on. Sitting at sink, pt completed grooming with electric razor and oral hygiene independent. Pt doffs shirt by self, shirt positioned on pt's lap and verbal/gestural/physical cues to don shirt correctly. Pt required assistance to thread R UE into shirt due to IV sites. Therapy Code Descriptions/Definitions Functional [place] Measure: 0=Not Assessed/NA 4=Minimal Assistance 1=Total Assistance 5=Supervision or Setup 2=Maximal Assistance 6=Modified [place] 3=Moderate Assistance 7=Complete IndependenceSCALE: Activities may be completed with or without assistive devices. 6-Nfryvzccpx-jtijwwe completes the activity by him/herself with no assistance from a helper. 5-Set-up or Clean-up Assistance-helper sets up or cleans up; patient completes activity. [place] assists only prior to or following the activity. 4-Supervision or Touching Assistance-helper provides verbal cues and/or touching/steadying and/or contact guard assistance as patient completes activity. Assistance may be provided throughout the activity or intermittently. 3-Partial/Moderate Assistance-helper does LESS THAN HALF the effort. [place] lifts, holds or supports trunk or limbs, but provides less than half the effort. 2-Substantial/Maximal Assistance-helper does MORE THAN HALF the effort. [place] lifts or holds trunk or limbs and provides more than half the effort. 3-Wlkhsafpf-figepd does ALL the effort. Patient does none of the effort to complete the activity. Or, the assistance of 2 or more helpers is required for the patient to complete the activity. If activity was not attempted, code reason: 7-Patient Refused. 9-Not Applicable-not attempted and the patient did not perform the activity before the current illness, exacerbation or injury. 10-Not Attempted due to Environmental Limitations-(lack of equipment, weather restraints, etc.). 88-Not Attempted due to Medical Conditions or Safety Concerns. Oral Hygiene (QC): 6 Upper Body Dressing (QC): 3 On/Off Footwear: 3 (Mod A) Co-treat with PT([id number]), skills of 2 clinicians required to decrease fall risk while completing higher level balance skills and to monitor/modify tasks due to increased L knee pain. PT focusing on ambulation, dynamic standing balance and transfers while OT focusing on B UE positioning, L UE placement during functional tasks, B UE exercise to increase AROM of L UE and functional mobility. Other Treatment Pt ambulated with FWW to therapy gym. Pt completing B UE strengthening and AROM tasks to increase functional movement and strength for daily tasks with skilled instructions and modifications when necessary. Using ROM arc in standing with L UE, R UE stabilizing with grabbar while pt grasped ring with L hand and brought across midline. Then pt would pivot 90* with body to find item with corresponding color and place in designated matching little traverse. Pt then was instructed to reach across body to grasp colored ring and bring back to starting place then grab corresponding color hickman bag at lower height and toss into designated area. Pt completed these tasks without LOB and was 100% accurate. Pt then ambulated with PT around therapy gym without AD while scanning around room to find cones, retrieve then bring back to designated area. See PT notes for progress on ambulation. Pt then ambulated back to room and laid in bed to complete L UE stretching and massage to increase AROM and decrease pain. Pt then completed B UE exercises with SPC, shldr flex (15 reps), shldr abd (10 reps), shldr flex with forearm pronation (15 reps). After session, pt sitting on EOB with drink in hand. Call light/phone in reach. All needs met in room. OT Short Term Goals Short Term Goals Time Frame: February 15, 2022 Eatin Oral hygiene: 5 Toileting hygiene: 3 Shower/bathe self: 3 Upper body dressin (mod) Lower body dressin (mod) Putting on/taking off footwear: 2 OT Nursing Home Goals Ld Teacher Goals Time Frame: Feb 23, 2022 Eating (QC): 5 Oral Hygiene (QC): 5 Toileting Hygiene (QC): 6 Shower/Bathe Self (QC): 5 Upper Body Dressing (QC): 3 (min) Lower Body Dressing (QC): 3 (min) On/Off Footwear (QC): 3 (mod) 1=Demonstrate adherence to instructed precautions during ADL tasks. 2=Patient will verbalize/demonstrate understanding of assistive devices/modifications for ADL. 3=Patient will improve strength/tolerance for activity to enable patient to perform ADL's. OT Education/Plan Problem List/Assessment Assessment: Decreased Activ Tolerance, Decreased UE Strength, Impaired Funct Balance, Impaired Self-Care Skills, Restricted Funct UE ROM, Visual-Perceptual Deficit Discharge Recommendations Plan/Recommendations: Continue POC Treatment Plan/Plan of Care Patient would benefit from OT for education, treatment and training to promote independence in ADL's, mobility, safety and/or upper extremity function for ADL's. Plan of Care: ADL Retraining, Functional Mobility, Group Exercise/Act as Ind, UE Funct Exercise/Act, UE Neuromus Re-Ed/Coord, Visual/Perceptual Retrain Treatment Duration: Feb 23, 2022 Frequency: At least 5 of 7 days/Wk (IRF) Estimated Hrs Per Day: 1.5 hours per day (75-90 min/day ) Agreement: Yes Rehab Potential: Fair Time/GCodes Start Time: 09:30 Stop Time: 11:00 Total Time Billed (hr/min): 90 Billed Treatment Time 1 visit-ADL 3 (45 min), NM 2 (25 min) FA 1 (20 min) co-treat with PT [id number], individual [id number] AAKASH HODGES February 08, 2022 10:59
--- NOTE | 2022-02-08 13:46 | Diagnostic Imaging Report ---
INDICATION: Left knee pain. COMPARISON: 02/05/2022. FINDINGS: Three radiographic views of the left knee were obtained. There are findings suspicious for calcified suprapatellar intra-articular loose body. Small joint effusion is also suspected. Osseous structures are otherwise intact. There is no evidence of acute fracture. Joint spaces are maintained. Mild osteoarthritic changes are noted. No unexpected radiopaque foreign bodies are identified. IMPRESSION: 1. No acute fracture or dislocation of the left knee. 2. Small effusion with probable suprapatellar intra-articular calcified loose body. Dictated by: Dictated on workstation # [id number]
[2022-02-08] MEDS: [UNRECOGNIZED DRUG - REMARK] PO SCH (17:34)
[2022-02-08] MEDS: RIVAROXABAN 20 MG TABLET (XARELTO) PO SCH (17:34)
[2022-02-08 19:30] VITALS: BP 133/80
[2022-02-08] MEDS: FAMOTIDINE 20 MG (PEPCID) TABLET PO SCH (20:09)
[2022-02-09] MEDS: PANTOPRAZOLE 40 MG (PROTONIX) TAB PO SCH ×2 (05:21→16:47)
[2022-02-09] MEDS: CATHETER FLUSH 10 ML SYR IVP SCH ×3 (05:21→20:44)
[2022-02-09 07:19] VITALS: BP 152/80
--- NOTE | 2022-02-09 08:19 | Consultation - Ortho ---
Consult - Ortho Subjective Date of Exam 02/09/22 Chief Complaint Left Knee Pain HPI/Events since last exam has history with left knee pain, worse with weather change, has treated at home with Voltaren gel with some success Medical, Surgical History not obtained Social History not obtained Family History not obtained Review of Systems not obtained Allergies: Coded Allergies: aloe vera (Verified Allergy, Unknown, RASH, 01/30/22) cephalexin (Verified Allergy, Unknown, FACE THROAT SWELLING, 01/30/22) influenza virus vaccine ts [id number] (36 mos,up) (Verified Allergy, Unknown, TERRIBLE REACTION, 01/30/22) Home Meds Reported Medications Fludrocortisone Acetate (Fludrocortisone Acetate) 0.1 Mg Tab, 0.1 MG PO DAILY, TAB 02/05/22 Sarah Ann-3/Dha/Epa/Fish Oil (Megared Adv 6X Abs 800 mg Sfgl) 476 Mg-800 Mg Capsule, 1 EACH PO DAILY, CAP 02/05/22 Acetaminophen (Tylenol) 325 Mg Tablet, 650 MG PO Q6H PRN for PAIN-MILD (1-4), TAB 02/05/22 Sennosides/Docusate Sodium (Senna-S Tablet) 8.6 Mg-50 Mg Tablet, 1 EACH PO BID PRN for CONSTIPATION-6TH LINE, TAB 02/05/22 Silodosin (Silodosin) 8 Mg Capsule, 8 MG PO 1800, CAP 02/05/22 Midodrine HCl (Midodrine HCl) 5 Mg Tablet, 5 MG PO 0900,1500,2100, TAB 02/05/22 Cholecalciferol (Vitamin D3) (Vitamin D3) 50 Mcg (2000 Unit) Tablet, 50 MCG PO DAILY, TAB 02/05/22 Lactobacillus Acidophilus (Probiotic) 10 Billion Cell Capsule, 1 EACH PO DAILY, CAP 02/05/22 Aspirin (Aspirin EC) 81 Mg Tablet.dr, 81 MG PO DAILY, TAB HAS BEEN ON HOLD SINCE 01-30-2022 DUE TO AN UPCOMING PROCEDURE 11/06/21 Diclofenac Sodium (Diclofenac Sodium) 100 Gm Gel..gram., 1 APPLIC TP QID PRN for PAIN-BREAKTHROUGH, EA APPLY TO AFFECTED KNEES 11/06/21 Pantoprazole Sodium (Pantoprazole Sodium) 40 Mg Tablet.dr, 40 MG PO BIDAC, TAB 11/06/21 Atorvastatin Calcium (Atorvastatin Calcium) 80 Mg Tablet, 80 MG PO HS, TAB 11/06/21 Famotidine (Acid Construction Supervisor (FAMOTIDINE)) 20 Mg Tablet, 20 MG PO HS, TAB 11/06/21 Discontinued Reported Medications Leuprolide Acetate (Lupron Depot) 22.5 Mg (3 Month) Soln, 22.5 MG IM, EA 01/30/22 [vitamin d] Unknown Strength No Conflict Check 01/30/22 Tamsulosin HCl (Flomax) 0.4 Mg Cap, 0.4 MG PO 1800, CAP 11/06/21 Discontinued Scripts Sennosides/Docusate Sodium (Stool Softener-Laxative Tablet) 1 Each Tablet, 1 EA PO BID, #60 TAB Prov:GUILLERMO CABELLO DO 11/30/21 Midodrine HCl (Midodrine HCl) 10 Mg Tablet, 5 MG PO TID, #90 TAB Prov:GUILLERMO CABELLO DO 11/30/21 Acetaminophen (Acetaminophen) 325 Mg Tablet, 650 MG PO Q4H PRN for PAIN-MILD (1- 4), #60 TAB Prov:GUILLERMO CABELLO DO 05/23/21 Objective Exam L Knee: No effusion, extends 0, flexes 100 and then has pain, tender MJL, stable to stress Vital Signs Vital Signs Date Time Temp Pulse Resp B/P (MAP) Pulse Ox O2 Delivery O2 Flow Rate FiO2 02/09/22 07:19 36.5 98 16 152/80 (104) 94 Room Air 02/08/22 20:14 Room Air 02/08/22 20:06 100 02/08/22 19:30 37.1 74 20 133/80 (97) 96 Room Air Imaging 2 nonweightbearing views of the left knee dated 02/08/22 were reviewed from PACS and demonstrated tricompartmental degenerative change Assessment and Plan Assessment Left Knee Primary Osteoarthritis Problem List Left Knee Primary Osteoarthritis Plan Voltaren gel scheduled If not helping, will potentially inject Revisit Friday Final Diagonsis Left Knee Primary Osteoarthritis Level of the visit: Level 3 ERIN MCINTYRE MD February 09, 2022 08:19
[2022-02-09] MEDS: VITAMIN D3 25 MCG (1,000 UNITS) TABLET PO SCH (08:20)
[2022-02-09] MEDS: LACTOBACILLUS ACIDOPHILUS (PROBIOTIC) CAPSULE PO SCH (08:20)
[2022-02-09] MEDS: FLUDROCORTISONE 0.1 MG (FLORINEF) TAB PO SCH (08:20)
[2022-02-09] MEDS: MIDODRINE 10 MG (PROAMATINE) TAB PO SCH ×3 (08:21→20:42)
[2022-02-09] MEDS: DOCUSATE SODIUM 100 MG (COLACE) CAP PO SCH ×2 (08:22→20:42)
[2022-02-09] MEDS: polyethylene glycoL POWDER 17 GM (MIRALAX) PACK PO SCH ×2 (08:22→20:42)
[2022-02-09] MEDS: SENNA W/DOCUSATE (SENOKOT S) TABLET PO SCH ×2 (08:22→20:42)
[2022-02-09] MEDS: OMEGA 3 (FISH OIL) 1000 MG CAP PO SCH ×3 (08:22→17:18)
[2022-02-09] MEDS: DICLOFENAC 1% GEL 100 GM (VOLTAREN) TUBE TOP SCH ×4 (08:31→20:52)
--- NOTE | 2022-02-09 09:31 | PM&R Progress Note ---
Subjective HPI/CC On Admission Date Seen by Provider: February 09, 2022 Time Seen by Provider: 09:45 Subjective/Events-last exam 02/09/2022: Patient doing well No pain reported Left knee evaluated by Dr Dimas and reviewed xrays Diclofenac gel will be maintained 02/08/22: Pt is doing really well Voiding well Bowels moved yesterday Supportive care will continue 02/07/22: Pt is moving around really well Bowels moved today and it was dark so I will order a hemoccult Heating pad will be placed on the shoulder We will discontinue the marino catheter if he has retention will consult Dr. Valencia, his urologist Review of Systems General: Fatigue, Malaise Objective Exam Vital Signs Vital Signs Date Time Temp Pulse Resp B/P (MAP) Pulse Ox O2 Delivery O2 Flow Rate FiO2 02/09/22 08:55 Room Air 02/09/22 07:19 36.5 98 16 152/80 (104) 94 Capillary Refill : General Appearance: No Apparent Distress, WD/WN, Chronically ill HEENT: PERRL/EOMI, Normal ENT Inspection, Pharynx Normal Neck: Full Range of Motion, Normal Inspection, Non Tender, Supple, Carotid Bruit Respiratory: Chest Non Tender, Lungs Clear, Normal Breath Sounds, No Accessory Muscle Use, No Respiratory Distress Cardiovascular: Regular Rate, Rhythm, No Edema, No Gallop, No JVD, No Murmur, Normal Peripheral Pulses Gastrointestinal: Normal Bowel Sounds, No Organomegaly, No Pulsatile Mass, Non Tender, Soft Back: Normal Inspection, No CVA Tenderness, No Vertebral Tenderness Extremity: Normal Capillary Refill, Normal Inspection, Normal Range of Motion, Non Tender, No Calf Tenderness, No Pedal Edema Neurologic/Psychiatric: Alert, Oriented x3, marketing research intern II-XII Norm as Tested, Abnormal Gait, Depressed Affect, Motor Weakness (Generalized weakness) Skin: Normal Color, Warm/Dry Lymphatic: No Adenopathy Results/Procedures Lab Patient resulted labs reviewed. FIM Transfers Therapy Code Descriptions/Definitions Functional [place] Measure: 0=Not Assessed/NA 4=Minimal Assistance 1=Total Assistance 5=Supervision or Setup 2=Maximal Assistance 6=Modified [place] 3=Moderate Assistance 7=Complete IndependenceSCALE: Activities may be completed with or without assistive devices. 7-Tbpqzxoaag-sjzknhk completes the activity by him/herself with no assistance from a helper. 5-Set-up or Clean-up Assistance-helper sets up or cleans up; patient completes activity. [place] assists only prior to or following the activity. 4-Supervision or Touching Assistance-helper provides verbal cues and/or touching/steadying and/or contact guard assistance as patient completes activity. Assistance may be provided throughout the activity or intermittently. 3-Partial/Moderate Assistance-helper does LESS THAN HALF the effort. [place] lifts, holds or supports trunk or limbs, but provides less than half the effort. 2-Substantial/Maximal Assistance-helper does MORE THAN HALF the effort. [place] lifts or holds trunk or limbs and provides more than half the effort. 7-Atnzypxfk-rictev does ALL the effort. Patient does none of the effort to complete the activity. Or, the assistance of 2 or more helpers is required for the patient to complete the activity. If activity was not attempted, code reason: 7-Patient Refused. 9-Not Applicable-not attempted and the patient did not perform the activity before the current illness, exacerbation or injury. 10-Not Attempted due to Environmental Limitations-(lack of equipment, weather restraints, etc.). 88-Not Attempted due to Medical Conditions or Safety Concerns. Roll Left to Right (QC): 6 Sit to Lying (QC): 6 Sit to Stand (QC): 4 Chair/Zhv-xe-Vtrpm Xfer(QC): 4 Car Transfer (QC): 4 Gait Training Does the Patient Walk?: Yes Distance: 120'x3 Walk 10 feet (QC): 4 Walk 50 ft with 2 Turns(QC): 4 Walk 150 ft (QC): 88 Walking 10ft/uneven surface-QC: 4 Gait Persons Needed: 1 Gait Assistive Device: Cane Single Point Wheelchair Training Does the Pt Use a Wheelchair?: No Wheel 50 ft with 2 turns (QC): 9 Wheel 150 ft (QC): 9 Stair Training #of Steps: 1 1 Step (curb) (QC): 4 4 Steps (QC): 88 12 Steps (QC): 88 Balance Picking up an Object (QC): 4 (with peanut blancher) ADL-Treatment Eating (QC): 5 Oral Hygiene (QC): 6 Shower/Bathe Self (QC): 4 Upper Body Dressing (QC): 3 Lower Body Dressing (QC): 2 On/Off Footwear (QC): 3 (Mod A) Toileting Hygiene (QC): 4 Toilet Transfer (QC): 4 Assessment/Plan Assessment and Plan Assess & Plan/Chief Complaint Assessment: Subacute stroke suspect embolic in nature on MRI with left-sided weakness Isolated seizure Suspected aspiration pneumonia placed on antibiotics empirically 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 maintained on midodrine Previous stroke with left-sided weakness sustained during carotid endarterectomy CAD previous stents Hypertension Hyperlipidemia Prostate cancer undergoing Lupron and radiation seeds Carotid stenosis status post carotid endarterectomy Urinary frequency chronic GERD Previous UTI Poor nutrition Plan: Inpatient rehab Cardiology consult Supportive long term meds PT and OT 02/07/2022: DC catheter Heating pad to shoulder Anticoagulation per Dr. Escobar 02/08: Monitor closely Doing well 02/09: Monitor closely Dr Dimas appreciated (1) Paroxysmal atrial fibrillation Assessment & Plan: When he was in the intensive care unit his telemetry showed some brief episodes of irregular atrial rhythm that may have been short bursts of paroxysmal atrial fibrillation. In light of the new stroke in 2 different territories, this is certainly concerning for an embolic stroke due to atrial fibrillation. I changed his aspirin over to rivaroxaban. He should continue on high-dose statin medication. (2) Acute cerebrovascular accident Assessment & Plan: As above, this may have been due to atrial fibrillation. Although we did not see any atrial fibrillation on his implantable loop recorder prior to admission, due to possible atrial fibrillation seen during this hospitalization, He does not appear to have any major new neurologic deficits with his most recent stroke. He will continue with physical therapy on the inpatient rehabilitation unit for physical therapy and occupational therapy. (3) Mixed hyperlipidemia Assessment & Plan: Continue high-dose statin medication. (4) Orthostatic hypotension Status: Acute Assessment & Plan: He has had problems with severe orthostasis in the past. Continue midodrine and fludrocortisone. (5) Primary hypertension Assessment & Plan: He had a previous history of hypertension but then developed orthostasis and all of his antihypertensive medication was discontinued. (6) Seizure Status: Acute Assessment & Plan: He had a seizure in the emergency room but no evidence of recurrence. This may have been related to the acute cerebrovascular accident. GUILLERMO CABELLO DO February 09, 2022 09:31
--- NOTE | 2022-02-09 09:52 | Physical Therapy Daily Note ---
PT Daily Note-Current Subjective Pt. initially reluctant to participate then states he should really get up and move a little Pain Numeric Pain Scale: 5-Moderate Pain Location: Left Location Body Site: Hip Pain Description: Ache Mental Status Patient Orientation: Normal For Age Transfers SCALE: Activities may be completed with or without assistive devices. 2-Xmyesbissc-puuqqtn completes the activity by him/herself with no assistance from a helper. 5-Set-up or Clean-up Assistance-helper sets up or cleans up; patient completes activity. [place] assists only prior to or following the activity. 4-Supervision or Touching Assistance-helper provides verbal cues and/or touching/steadying and/or contact guard assistance as patient completes activity. Assistance may be provided throughout the activity or intermittently. 3-Partial/Moderate Assistance-helper does LESS THAN HALF the effort. [place] lifts, holds or supports trunk or limbs, but provides less than half the effort. 2-Substantial/Maximal Assistance-helper does MORE THAN HALF the effort. [place] lifts or holds trunk or limbs and provides more than half the effort. 5-Ushgcsvks-plwjxo does ALL the effort. Patient does none of the effort to complete the activity. Or, the assistance of 2 or more helpers is required for the patient to complete the activity. If activity was not attempted, code reason: 7-Patient Refused. 9-Not Applicable-not attempted and the patient did not perform the activity before the current illness, exacerbation or injury. 10-Not Attempted due to Environmental Limitations-(lack of equipment, weather restraints, etc.). 88-Not Attempted due to Medical Conditions or Safety Concerns. Roll Left & Right (QC): 6 Sit to Lying (QC): 6 Lying to Sitting/Side of Bed(Q: 6 Sit to Stand (QC): 4 Chair/Hel-fb-Iumgz Xfer(QC): 4 Toilet Transfer (QC): 6 Gait Training Does the Patient Walk?: Yes Walk 150 ft (QC): 4 Gait Persons Needed: 1 Gait Assistive Device: Cane Single Point 160 ft x 2 CGA SPC good gait pattern, No LOB Exercises Supine Ex: Bridging, Ankle pumps, Quad Set, Rolling, Lower trunk rotation, Scooting, Straight leg raise, Hip abd/add Supine Reps: 15 Seated Therapy Exercises: Ankle pumps, Long arc quads, Hip flexion, Hip abd/add Seated Reps: 20 Treatments above Rx, then used toilet SBA, managing clothing indep, in bed after Rx with adam at hand Assessment Current Status: Good Progress PT Short Term Goals Short Term Goals Time Frame: February 13, 2022 Roll Left & Right: 6 Sit to lyin Lying to sitting on side of be: 4 (SBA) Sit to stand: 4 (SBA) Chair/uio-vq-gfaxr transfer: 4 (SBA) Walk 10 feet: 4 (SBA) Walk 50 feet with two turns: 4 (SBA) Walk 150 feet: 4 (SBA) PT Lumber Buyer Goals Lumber Buyer Goals PT Lumber Buyer Goals Time Frame: Feb 27, 2022 Roll Left & Right (QC): 6 Sit to Lying (QC): 6 Lying-Sitting on Side/Bed(QC): 6 Sit to Stand (QC): 5 Chair/Ewc-zw-Sdvby Xfer(QC): 5 Toilet Transfer (QC): 5 Car Transfer (QC): 5 Does the Patient Walk: Yes Walk 10 feet (QC): 5 Walk 50ft with 2 Turns (QC): 5 Walk 150 ft (QC): 5 Walking 10ft on Uneven Surface: 5 1 Step (curb) (QC): 4 4 Steps (QC): 4 12 Steps (QC): 88 Picking up an Object (QC): 5 Wheel 50 feet with 2 turns (QC: 9 Wheel 150 feet: 9 PT Plan Treatment/Plan Treatment Plan: Continue Plan of Care Treatment Plan: Bed Mobility, Education, Functional Activity Jose Carlos, Functional Strength, Group Therapy, Gait, Safety, Therapeutic Exercise, Transfers Treatment Duration: Feb 27, 2022 Frequency: At least 5 of 7 days/Wk (IRF) Estimated Hrs Per Day: 1.5 hours per day Patient and/or Family Agrees t: Yes Safety Risks/Education Patient Education: Gait Training, Transfer Techniques, Correct Positioning, Safety Issues Teaching Recipient: Patient Teaching Methods: Demonstration, Discussion Response to Teaching: Verbalize Understanding, Return Demonstration, Reinforcement Needed Time/GCodes Time In: 910 Time Out: 945 Total Billed Treatment Time: 35 Total Billed Treatment 1,EX20m,GT15m MIKE MCKNIGHT CIRCULAR HEAD SAW OPERATOR February 09, 2022 09:52
[2022-02-09 11:02] VITALS: BP 152/80
[2022-02-09 14:18] VITALS: BP 157/83
[2022-02-09] MEDS: RIVAROXABAN 20 MG TABLET (XARELTO) PO SCH (16:47)
[2022-02-09] MEDS: [UNRECOGNIZED DRUG - REMARK] PO SCH (17:19)
[2022-02-09 20:02] VITALS: BP 164/78
[2022-02-09] MEDS: FAMOTIDINE 20 MG (PEPCID) TABLET PO SCH (20:42)
[2022-02-10] MEDS: CATHETER FLUSH 10 ML SYR IVP SCH ×3 (06:12→20:47)
[2022-02-10] MEDS: PANTOPRAZOLE 40 MG (PROTONIX) TAB PO SCH ×2 (06:12→16:06)
[2022-02-10 07:05] VITALS: BP 116/77
--- NOTE | 2022-02-10 08:26 | PM&R Progress Note ---
Subjective HPI/CC On Admission Date Seen by Provider: February 10, 2022 Time Seen by Provider: 16:00 Subjective/Events-last exam 02/10/2022: Patient has no complaints No pain No dark stools Tolerating DOAC 02/09/2022: Patient doing well No pain reported Left knee evaluated by Dr Dimas and reviewed xrays Diclofenac gel will be maintained 02/08/22: Pt is doing really well Voiding well Bowels moved yesterday Supportive care will continue 02/07/22: Pt is moving around really well Bowels moved today and it was dark so I will order a hemoccult Heating pad will be placed on the shoulder We will discontinue the marino catheter if he has retention will consult Dr. Valencia, his urologist Review of Systems General: Fatigue, Malaise Neurological: Weakness Objective Exam Vital Signs Vital Signs Date Time Temp Pulse Resp B/P (MAP) Pulse Ox O2 Delivery O2 Flow Rate FiO2 02/10/22 20:10 Room Air 02/10/22 19:19 36.8 83 18 141/80 (100) 92 02/09/22 11:02 0.00 02/09/22 11:02 21 Capillary Refill : General Appearance: No Apparent Distress, WD/WN, Chronically ill HEENT: PERRL/EOMI, Normal ENT Inspection, Pharynx Normal Neck: Full Range of Motion, Normal Inspection, Non Tender, Supple, Carotid Bruit Respiratory: Chest Non Tender, Lungs Clear, Normal Breath Sounds, No Accessory Muscle Use, No Respiratory Distress Cardiovascular: Regular Rate, Rhythm, No Edema, No Gallop, No JVD, No Murmur, Normal Peripheral Pulses Gastrointestinal: Normal Bowel Sounds, No Organomegaly, No Pulsatile Mass, Non Tender, Soft Back: Normal Inspection, No CVA Tenderness, No Vertebral Tenderness Extremity: Normal Capillary Refill, Normal Inspection, Normal Range of Motion, Non Tender, No Calf Tenderness, No Pedal Edema Neurologic/Psychiatric: Alert, Oriented x3, 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 FIM Transfers Therapy Code Descriptions/Definitions Functional [place] Measure: 0=Not Assessed/NA 4=Minimal Assistance 1=Total Assistance 5=Supervision or Setup 2=Maximal Assistance 6=Modified [place] 3=Moderate Assistance 7=Complete IndependenceSCALE: Activities may be completed with or without assistive devices. 0-Gjfenpulfc-wcgaxdm completes the activity by him/herself with no assistance from a helper. 5-Set-up or Clean-up Assistance-helper sets up or cleans up; patient completes activity. [place] assists only prior to or following the activity. 4-Supervision or Touching Assistance-helper provides verbal cues and/or touching/steadying and/or contact guard assistance as patient completes activity. Assistance may be provided throughout the activity or intermittently. 3-Partial/Moderate Assistance-helper does LESS THAN HALF the effort. [place] lifts, holds or supports trunk or limbs, but provides less than half the effort. 2-Substantial/Maximal Assistance-helper does MORE THAN HALF the effort. [place] lifts or holds trunk or limbs and provides more than half the effort. 9-Ydzszzroy-ksfvhj does ALL the effort. Patient does none of the effort to complete the activity. Or, the assistance of 2 or more helpers is required for the patient to complete the activity. If activity was not attempted, code reason: 7-Patient Refused. 9-Not Applicable-not attempted and the patient did not perform the activity before the current illness, exacerbation or injury. 10-Not Attempted due to Environmental Limitations-(lack of equipment, weather restraints, etc.). 88-Not Attempted due to Medical Conditions or Safety Concerns. Roll Left to Right (QC): 6 Sit to Lying (QC): 6 Sit to Stand (QC): 4 Chair/Zzi-nb-Tmcba Xfer(QC): 4 Car Transfer (QC): 4 Gait Training Does the Patient Walk?: Yes Distance: 120'x3 Walk 10 feet (QC): 4 Walk 50 ft with 2 Turns(QC): 4 Walk 150 ft (QC): 4 Walking 10ft/uneven surface-QC: 4 Gait Persons Needed: 1 Gait Assistive Device: Cane Single Point Wheelchair Training Does the Pt Use a Wheelchair?: No Wheel 50 ft with 2 turns (QC): 9 Wheel 150 ft (QC): 9 Stair Training #of Steps: 1 1 Step (curb) (QC): 4 4 Steps (QC): 88 12 Steps (QC): 88 Balance Picking up an Object (QC): 4 (with crosscutter) ADL-Treatment Eating (QC): 5 Oral Hygiene (QC): 6 Shower/Bathe Self (QC): 4 Upper Body Dressing (QC): 3 Lower Body Dressing (QC): 2 On/Off Footwear (QC): 3 (Mod A) Toileting Hygiene (QC): 4 Toilet Transfer (QC): 4 Assessment/Plan Assessment and Plan Assess & Plan/Chief Complaint Assessment: Subacute stroke suspect embolic in nature on MRI with left-sided weakness Isolated seizure Suspected aspiration pneumonia placed on antibiotics empirically 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 maintained on midodrine Previous stroke with left-sided weakness sustained during carotid endarterectomy CAD previous stents Hypertension Hyperlipidemia Prostate cancer undergoing Lupron and radiation seeds Carotid stenosis status post carotid endarterectomy Urinary frequency chronic GERD Previous UTI Poor nutrition Plan: Inpatient rehab Cardiology consult Supportive longterm meds PT and OT 02/07/2022: DC catheter Heating pad to shoulder Anticoagulation per Dr. Escobar 02/08: Monitor closely Doing well 02/09: Monitor closely Dr Wing metz 02/10/2022: Monitor progress Intense rehab (1) Paroxysmal atrial fibrillation Assessment & Plan: When he was in the intensive care unit his telemetry showed some brief episodes of irregular atrial rhythm that may have been short bursts of paroxysmal atrial fibrillation. In light of the new stroke in 2 different territories, this is certainly concerning for an embolic stroke due to atrial fibrillation. I changed his aspirin over to rivaroxaban. He should continue on high-dose statin medication. (2) Acute cerebrovascular accident Assessment & Plan: As above, this may have been due to atrial fibrillation. Although we did not see any atrial fibrillation on his implantable loop recorder prior to admission, due to possible atrial fibrillation seen during this hospitalization, He does not appear to have any major new neurologic deficits with his most recent stroke. He will continue with physical therapy on the inpatient rehabilitation unit for physical therapy and occupational therapy. (3) Mixed hyperlipidemia Assessment & Plan: Continue high-dose statin medication. (4) Orthostatic hypotension Status: Acute Assessment & Plan: He has had problems with severe orthostasis in the past. Continue midodrine and fludrocortisone. (5) Primary hypertension Assessment & Plan: He had a previous history of hypertension but then developed orthostasis and all of his antihypertensive medication was discontinued. (6) Seizure Status: Acute Assessment & Plan: He had a seizure in the emergency room but no evidence of recurrence. This may have been related to the acute cerebrovascular accident. GUILLERMO CABELLO DO February 10, 2022 08:26
[2022-02-10] MEDS: SENNA W/DOCUSATE (SENOKOT S) TABLET PO SCH ×2 (08:50→20:43)
[2022-02-10] MEDS: OMEGA 3 (FISH OIL) 1000 MG CAP PO SCH ×3 (08:50→18:11)
[2022-02-10] MEDS: LACTOBACILLUS ACIDOPHILUS (PROBIOTIC) CAPSULE PO SCH (08:50)
[2022-02-10] MEDS: DOCUSATE SODIUM 100 MG (COLACE) CAP PO SCH ×2 (08:50→20:42)
[2022-02-10] MEDS: VITAMIN D3 25 MCG (1,000 UNITS) TABLET PO SCH (08:50)
[2022-02-10] MEDS: MIDODRINE 10 MG (PROAMATINE) TAB PO SCH ×3 (08:50→20:43)
[2022-02-10] MEDS: FLUDROCORTISONE 0.1 MG (FLORINEF) TAB PO SCH (08:50)
[2022-02-10] MEDS: DICLOFENAC 1% GEL 100 GM (VOLTAREN) TUBE TOP SCH ×4 (08:51→20:47)
[2022-02-10] MEDS: polyethylene glycoL POWDER 17 GM (MIRALAX) PACK PO SCH ×2 (09:00→20:47)
[2022-02-10] MEDS: RIVAROXABAN 20 MG TABLET (XARELTO) PO SCH (16:06)
[2022-02-10] MEDS: [UNRECOGNIZED DRUG - REMARK] PO SCH (18:11)
[2022-02-10 19:19] VITALS: BP 141/80
[2022-02-10] MEDS: FAMOTIDINE 20 MG (PEPCID) TABLET PO SCH (20:42)
[2022-02-10] MEDS: HYDROcodone/APAP 5 MG/325 MG (LORTAB) TAB PO PRN (20:46)
--- NOTE | 2022-02-11 05:48 | PM&R Progress Note ---
Subjective HPI/CC On Admission Date Seen by Provider: February 11, 2022 Time Seen by Provider: 09:00 Subjective/Events-last exam 02/11/2022: Patient doing well No pain reported Left knee doing better No falls Balance better Eating well 02/10/2022: Patient has no complaints No pain No dark stools Tolerating DOAC 02/09/2022: Patient doing well No pain reported Left knee evaluated by Dr Dimas and reviewed xrays Diclofenac gel will be maintained 02/08/22: Pt is doing really well Voiding well Bowels moved yesterday Supportive care will continue 02/07/22: Pt is moving around really well Bowels moved today and it was dark so I will order a hemoccult Heating pad will be placed on the shoulder We will discontinue the marino catheter if he has retention will consult Dr. Valencia, his urologist Review of Systems General: Fatigue, Malaise Neurological: Weakness, Numbness Objective Exam Vital Signs Vital Signs Date Time Temp Pulse Resp B/P (MAP) Pulse Ox O2 Delivery O2 Flow Rate FiO2 02/11/22 07:09 36.4 88 18 129/62 (84) 94 Room Air 02/09/22 11:02 0.00 02/09/22 11:02 21 Capillary Refill : General Appearance: No Apparent Distress, WD/WN, Chronically ill HEENT: PERRL/EOMI, Normal ENT Inspection, Pharynx Normal Neck: Full Range of Motion, Normal Inspection, Non Tender, Supple, Carotid Bruit Respiratory: Chest Non Tender, Lungs Clear, Normal Breath Sounds, No Accessory Muscle Use, No Respiratory Distress Cardiovascular: Regular Rate, Rhythm, No Edema, No Gallop, No JVD, No Murmur, Normal Peripheral Pulses Gastrointestinal: Normal Bowel Sounds, No Organomegaly, No Pulsatile Mass, Non Tender, Soft Back: Normal Inspection, No CVA Tenderness, No Vertebral Tenderness Extremity: Normal Capillary Refill, Normal Inspection, Normal Range of Motion, Non Tender, No Calf Tenderness, No Pedal Edema Neurologic/Psychiatric: Alert, Oriented x3, 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 FIM Transfers Therapy Code Descriptions/Definitions Functional [place] Measure: 0=Not Assessed/NA 4=Minimal Assistance 1=Total Assistance 5=Supervision or Setup 2=Maximal Assistance 6=Modified [place] 3=Moderate Assistance 7=Complete IndependenceSCALE: Activities may be completed with or without assistive devices. 2-Wqztlxjdxg-weydncl completes the activity by him/herself with no assistance from a helper. 5-Set-up or Clean-up Assistance-helper sets up or cleans up; patient completes activity. [place] assists only prior to or following the activity. 4-Supervision or Touching Assistance-helper provides verbal cues and/or touching/steadying and/or contact guard assistance as patient completes activity. Assistance may be provided throughout the activity or intermittently. 3-Partial/Moderate Assistance-helper does LESS THAN HALF the effort. [place] lifts, holds or supports trunk or limbs, but provides less than half the effort. 2-Substantial/Maximal Assistance-helper does MORE THAN HALF the effort. [place] lifts or holds trunk or limbs and provides more than half the effort. 8-Iqjvmxtws-yvkccj does ALL the effort. Patient does none of the effort to complete the activity. Or, the assistance of 2 or more helpers is required for the patient to complete the activity. If activity was not attempted, code reason: 7-Patient Refused. 9-Not Applicable-not attempted and the patient did not perform the activity before the current illness, exacerbation or injury. 10-Not Attempted due to Environmental Limitations-(lack of equipment, weather restraints, etc.). 88-Not Attempted due to Medical Conditions or Safety Concerns. Roll Left to Right (QC): 6 Sit to Lying (QC): 6 Sit to Stand (QC): 4 Chair/Ulv-ks-Uosmw Xfer(QC): 4 Car Transfer (QC): 4 Gait Training Does the Patient Walk?: Yes Distance: 120'x3 Walk 10 feet (QC): 4 Walk 50 ft with 2 Turns(QC): 4 Walk 150 ft (QC): 4 Walking 10ft/uneven surface-QC: 4 Gait Persons Needed: 1 Gait Assistive Device: Cane Single Point Wheelchair Training Does the Pt Use a Wheelchair?: No Wheel 50 ft with 2 turns (QC): 9 Wheel 150 ft (QC): 9 Stair Training #of Steps: 1 1 Step (curb) (QC): 4 4 Steps (QC): 88 12 Steps (QC): 88 Balance Picking up an Object (QC): 4 (with hand cloth examiner) ADL-Treatment Eating (QC): 5 Oral Hygiene (QC): 6 Shower/Bathe Self (QC): 4 Upper Body Dressing (QC): 3 Lower Body Dressing (QC): 2 On/Off Footwear (QC): 3 (Mod A) Toileting Hygiene (QC): 4 Toilet Transfer (QC): 4 Assessment/Plan Assessment and Plan Assess & Plan/Chief Complaint Assessment: Subacute stroke suspect embolic in nature on MRI with left-sided weakness Isolated seizure Suspected aspiration pneumonia placed on antibiotics empirically 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 maintained on midodrine Previous stroke with left-sided weakness sustained during carotid endarterectomy CAD previous stents Hypertension Hyperlipidemia Prostate cancer undergoing Lupron and radiation seeds Carotid stenosis status post carotid endarterectomy Urinary frequency chronic GERD Previous UTI Poor nutrition Plan: Inpatient rehab Cardiology consult Supportive retirement meds PT and OT 02/07/2022: DC catheter Heating pad to shoulder Anticoagulation per Dr. Escobar 02/08: Monitor closely Doing well 02/09: Monitor closely Dr Dimas appreciated 02/10/2022: Monitor progress Intense rehab 02/11/2022: Monitor closely Improved (1) Paroxysmal atrial fibrillation Assessment & Plan: When he was in the intensive care unit his telemetry showed some brief episodes of irregular atrial rhythm that may have been short bursts of paroxysmal atrial fibrillation. In light of the new stroke in 2 different territories, this is certainly concerning for an embolic stroke due to atrial fibrillation. I changed his aspirin over to rivaroxaban. He should continue on high-dose statin medication. (2) Acute cerebrovascular accident Assessment & Plan: As above, this may have been due to atrial fibrillation. Although we did not see any atrial fibrillation on his implantable loop recorder prior to admission, due to possible atrial fibrillation seen during this hospitalization, He does not appear to have any major new neurologic deficits with his most recent stroke. He will continue with physical therapy on the inpatient rehabilitation unit for physical therapy and occupational therapy. (3) Mixed hyperlipidemia Assessment & Plan: Continue high-dose statin medication. (4) Orthostatic hypotension Status: Acute Assessment & Plan: He has had problems with severe orthostasis in the past. Continue midodrine and fludrocortisone. (5) Primary hypertension Assessment & Plan: He had a previous history of hypertension but then developed orthostasis and all of his antihypertensive medication was discontinued. (6) Seizure Status: Acute Assessment & Plan: He had a seizure in the emergency room but no evidence of recurrence. This may have been related to the acute cerebrovascular accident. GUILLERMO CABELLO DO February 11, 2022 05:48
[2022-02-11] MEDS: PANTOPRAZOLE 40 MG (PROTONIX) TAB PO SCH ×2 (06:39→15:59)
[2022-02-11] MEDS: CATHETER FLUSH 10 ML SYR IVP SCH ×3 (06:40→20:34)
[2022-02-11 07:09] VITALS: BP 129/62
--- NOTE | 2022-02-11 07:46 | Occupational Ther Daily Note ---
OT Current Status-Daily Note Subjective Pt alert, lying in bed. Pt agree to therapy. No c/o pain. Mental Status/Objective Patient Orientation: Person, Place, Time, Situation Attachments: IV ADL-Treatment Pt agrees to shower. Supine <--> EOB independent. Ambulates without AD, SBA, to bathroom. Sits at sink to complete oral care and grooming independently. Pt completes shower 90% of the time sitting on shower bench then stands using grabbars for stability while cleansing patrick area/buttocks, supervision for safety. After set up by gathering clothing and positioning shirt, pt able to complete donning/doffing shirt by self. After set up and verbal cues to slow down to visually see where clothing is caught on toes, pt able to don/doff pants by self with SBA for safety. KALYANI hose donned with assist then pt dons/doffs shoes by self. Therapy Code Descriptions/Definitions Functional [place] Measure: 0=Not Assessed/NA 4=Minimal Assistance 1=Total Assistance 5=Supervision or Setup 2=Maximal Assistance 6=Modified [place] 3=Moderate Assistance 7=Complete IndependenceSCALE: Activities may be completed with or without assistive devices. 4-Tivriknwfg-wusxdzf completes the activity by him/herself with no assistance from a helper. 5-Set-up or Clean-up Assistance-helper sets up or cleans up; patient completes activity. [place] assists only prior to or following the activity. 4-Supervision or Touching Assistance-helper provides verbal cues and/or touching/steadying and/or contact guard assistance as patient completes activity. Assistance may be provided throughout the activity or intermittently. 3-Partial/Moderate Assistance-helper does LESS THAN HALF the effort. [place] l ifts, holds or supports trunk or limbs, but provides less than half the effort. 2-Substantial/Maximal Assistance-helper does MORE THAN HALF the effort. [place] lifts or holds trunk or limbs and provides more than half the effort. 8-Qhhjgbxoi-ywqhuk does ALL the effort. Patient does none of the effort to complete the activity. Or, the assistance of 2 or more helpers is required for t he patient to complete the activity. If activity was not attempted, code reason: 7-Patient Refused. 9-Not Applicable-not attempted and the patient did not perform the activity before the current illness, exacerbation or injury. 10-Not Attempted due to Environmental Limitations-(lack of equipment, weather restraints, etc.). 88-Not Attempted due to Medical Conditions or Safety Concerns. Oral Hygiene (QC): 6 Shower/Bathe Self (QC): 4 Upper Body Dressing (QC): 4 Lower Body Dressing (QC): 4 On/Off Footwear: 3 Other Treatment Pt ambulated to therapy gym to complete L UE AROM stretching and strengthening to increase independence during functional tasks. Pt completing AROM tasks in horizontal plane on therapy table while sitting. Eliminating gravity and resistance pt completed circles on table with L UE first in ADD direction then ABD direction with verbal cues to reach as far as possible. Pt then completed shldr retraction and protraction with gravity and resistant eliminated movements. After therapy, pt lying in bed with call light/phone in reach. All needs met in room. OT Short Term Goals Short Term Goals Time Frame: February 15, 2022 Eatin Oral hygiene: 5 Toileting hygiene: 3 Shower/bathe self: 3 Upper body dressin (mod) Lower body dressin (mod) Putting on/taking off footwear: 2 OT Halfway Goals Halfway Goals Time Frame: Feb 23, 2022 Eating (QC): 5 Oral Hygiene (QC): 5 Toileting Hygiene (QC): 6 Shower/Bathe Self (QC): 5 Upper Body Dressing (QC): 3 (min) Lower Body Dressing (QC): 3 (min) On/Off Footwear (QC): 3 (mod) 1=Demonstrate adherence to instructed precautions during ADL tasks. 2=Patient will verbalize/demonstrate understanding of assistive devices/modifications for ADL. 3=Patient will improve strength/tolerance for activity to enable patient to perform ADL's. OT Education/Plan Problem List/Assessment Assessment: Impaired Self-Care Skills, Restricted Funct UE ROM, Visual- Perceptual Deficit Discharge Recommendations Plan/Recommendations: Continue POC Treatment Plan/Plan of Care Patient would benefit from OT for education, treatment and training to promote independence in ADL's, mobility, safety and/or upper extremity function for ADL's. Plan of Care: ADL Retraining, Functional Mobility, Group Exercise/Act as Ind, UE Funct Exercise/Act, UE Neuromus Re-Ed/Coord, Visual/Perceptual Retrain Treatment Duration: Feb 23, 2022 Frequency: At least 5 of 7 days/Wk (IRF) Estimated Hrs Per Day: 1.5 hours per day (75-90 min/day ) Agreement: Yes Rehab Potential: Fair Time/GCodes Start Time: 07:30 Stop Time: 09:00 Total Time Billed (hr/min): 90 Billed Treatment Time 1 visit-ADL 4 (60 min) NM 2 (30 min) AAKASH HODGES February 11, 2022 07:46
[2022-02-11 08:22] LABS: BASOPHILS # (AUTO) 0.1 10^3/uL (0.0-0.1); BASOPHILS % (AUTO) 1 % (0-10); EOSINOPHILS # (AUTO) 0.3 10^3/uL (0.0-0.3); EOSINOPHILS % (AUTO) 6 % (0-10); HEMATOCRIT 34 % (40-54); HEMOGLOBIN 10.8 g/dL (13.3-17.7); LYMPHOCYTES # (AUTO) 1.6 10^3/uL (1.0-4.0); LYMPHOCYTES % (AUTO) 27 % (12-44); MEAN CORPUSCULAR HEMOGLOBIN 28 pg (25-34); MEAN CORPUSCULAR HGB CONC 32 g/dL (32-36); MEAN CORPUSCULAR VOLUME 90 fL (80-99); MEAN PLATELET VOLUME 9.9 fL (9.0-12.2); MONOCYTES # (AUTO) 0.6 10^3/uL (0.0-1.0); MONOCYTES % (AUTO) 10 % (0-12); NEUTROPHILS # (AUTO) 3.3 10^3/uL (1.8-7.8); NEUTROPHILS % (AUTO) 56 % (42-75); PLATELET COUNT 242 10^3/uL (130-400); WHITE BLOOD COUNT 5.8 10^3/uL (4.3-11.0)
[2022-02-11] MEDS: MIDODRINE 10 MG (PROAMATINE) TAB PO SCH ×3 (08:36→20:33)
[2022-02-11] MEDS: OMEGA 3 (FISH OIL) 1000 MG CAP PO SCH ×3 (08:36→16:29)
[2022-02-11] MEDS: LACTOBACILLUS ACIDOPHILUS (PROBIOTIC) CAPSULE PO SCH (08:36)
[2022-02-11] MEDS: VITAMIN D3 25 MCG (1,000 UNITS) TABLET PO SCH (08:36)
[2022-02-11] MEDS: FLUDROCORTISONE 0.1 MG (FLORINEF) TAB PO SCH (08:36)
[2022-02-11] MEDS: DICLOFENAC 1% GEL 100 GM (VOLTAREN) TUBE TOP SCH ×4 (08:37→20:40)
[2022-02-11 08:48] LABS: ALBUMIN 3.4 GM/DL (3.2-4.5); BILIRUBIN,TOTAL 0.4 MG/DL (0.1-1.0); CREATININE SERUM 0.92 MG/DL (0.60-1.30); TOTAL PROTEIN 6.3 GM/DL (6.4-8.2)
[2022-02-11] MEDS: DOCUSATE SODIUM 100 MG (COLACE) CAP PO SCH ×2 (09:26→20:33)
[2022-02-11] MEDS: polyethylene glycoL POWDER 17 GM (MIRALAX) PACK PO SCH ×2 (09:26→20:45)
[2022-02-11] MEDS: SENNA W/DOCUSATE (SENOKOT S) TABLET PO SCH ×2 (09:26→20:33)
--- NOTE | 2022-02-11 09:50 | Progress Note ---
BILL PEDRO 02/11/22 0950: Progress Note Subjective: HPI: The patient was comfortably laying in bed this morning. He is doing well and reports he feels that he is good making progress with his rehabilitation. He reports improved balance and ambulation ability. He reports that his bowels are moving well. He denies any changes over night. He was seen by orthopedics on 02/09/22 and was started on Voltaren gel. Orthopedics reported they will consider steroid injection therapy if the Voltaren gel does not provide adequate relief. X-ray of the L knee on 02/08/22 showed no acute fracture or dislocation of the left knee. There was small effusion with probable suprapatellar intra-articular calcified loose body. ROS: Constitutional: no fevers, no chills EENTM: no vision changes Respiratory: no cough, no dyspnea Cardiovascular: no chest pain, no palpitations Gastrointestinal: no constipation, no vomiting Musculoskeletal: L knee pain Skin: no change in color, no concerning lesions Psychiatric/Neurological: no anxiety, no depression Objective: Vitals: T: 36.4, HR: 88, RR: 18 , BP: 129/62 , 94% room air PE: General Appearance: No Apparent Distress Eyes: Bilateral Eye Normal Inspection, Bilateral Eye PERRL HEENT: PERRL/EOMI, mocuous membranes moist Neck: normal inspection, normal ROM Respiratory: Chest Non Tender, Lungs Clear, Normal Breath Sounds, No Accessory Muscle Use, No Respiratory Distress Cardiovascular: Regular Rate, Rhythm, No Edema, No Gallop, No JVD, no Murmur, Normal Peripheral Pulses Gastrointestinal: Normal Bowel Sounds, No Organomegaly, No Pulsatile Mass, Non Tender, Soft Extremity: Normal Capillary Refill, Normal Inspection, Non Tender, No Calf Tenderness, No Pedal Edema, Neurologic/Psychiatric: Alert, Oriented x3, Normal Mood/Affect, LUE and LLE 4/5 strength, RUE and RLE 5/5 strength, CN III: improved L sided ptosis, CN XI: minor weakness of L shoulder shrug, Remainder of CN normal as tested. Skin: Normal Color, Warm/Dry Assessment: Left sided weakness Debility Subacute stroke, with MRI showing suspected embolic cause Carotid artery stenosis status post carotid endarterectony in 2020 HX of stroke during carotid endarterectomy resulting in L sided weakness HTN HLP CAD with stenting Prostate cancer on Lupron and radiation seed therapy UTI Hx Urinary frequency Anemia Hypokalemia Anticoagulation Plan: Left sided weakness Debility Subacute stroke, with MRI showing suspected embolic cause Carotid artery stenosis status post carotid endarterectony in 2020 HX of stroke during carotid endarterectomy resulting in L sided weakness PT will continue with inpatient rehab. He is making good progress with his ambulation, balance and ADLs. At admission to inpatient rehab, he was not able to ambulate with a cane, and today he is able to ambulate with a can. PT reported "if he wanted to" he can ambulate without a cane. We will continue to monitor his neurological and strength status. HTN HLP CAD with stenting Continue home meds Prostate cancer on Lupron and radiation seed therapy UTI Hx Urinary frequency Continue Lupron therapy. Monitor for any urinary changes. Anemia Hypokalemia K+ was 4 today, continue to monitor. Hemoglobin is stable, and was 10.8 today, continue to monitor. Anticoagulation Xeralto 20mg daily. ANABEL CABELLO DO 02/11/222050: Supervisory-Addendum Brief Verification & Attestation Participated in pt care: history, MDM, physical Personally performed: exam, history, MDM, supervision of care Care discussed with: Medical Student Procedures: n/a Results interpretation: Verified all documentation Verification and Attestation of Medical Student E/M Service A medical student performed and documented this service in my presence. I reviewed and verified all information documented by the medical student and made modifications to such information, when appropriate. I personally performed the physical exam and medical decision making. Anabel Cabello February 11, 2022,20:50 BILL PEDRO February 11, 2022 09:50 ANABEL CABELLO DO February 11, 2022 20:51
--- NOTE | 2022-02-11 10:56 | Physical Therapy Daily Note ---
PT Daily Note-Current Subjective Patient in bed pre tx, agrees to PT, has 5/10 pain in left knee. Appearance Patient in restroom post tx to have a BM, knows to use nurse call when done. Mental Status Patient Orientation: Person, Place, Situation Transfers SCALE: Activities may be completed with or without assistive devices. 3-Izcpsinukg-upqrvjz completes the activity by him/herself with no assistance from a helper. 5-Set-up or Clean-up Assistance-helper sets up or cleans up; patient completes activity. [place] assists only prior to or following the activity. 4-Supervision or Touching Assistance-helper provides verbal cues and/or [place]/steadying and/or contact guard assistance as patient completes activity. Assistance may be provided throughout the activity or intermittently. 3-Partial/Moderate Assistance-helper does LESS THAN HALF the effort. [place] lifts, holds or supports trunk or limbs, but provides less than half the effort. 2-Substantial/Maximal Assistance-helper does MORE THAN HALF the effort. [place] lifts or holds trunk or limbs and provides more than half the effort. 4-Exkaffgxt-wniivg does ALL the effort. Patient does none of the effort to complete the activity. Or, the assistance of 2 or more helpers is required for the patient to complete the activity. If activity was not attempted, code reason: 7-Patient Refused. 9-Not Applicable-not attempted and the patient did not perform the activity before the current illness, exacerbation or injury. 10-Not Attempted due to Environmental Limitations-(lack of equipment, weather restraints, etc.). 88-Not Attempted due to Medical Conditions or Safety Concerns. Roll Left & Right (QC): 6 Lying to Sitting/Side of Bed(Q: 6 Sit to Stand (QC): 4 Chair/Fgn-wf-Kpltn Xfer(QC): 4 SBA for sit to stand and transfers Gait Training Distance: 150'x2, 120' Walk 10 feet (QC): 4 Walk 50 ft with 2 Turns(QC): 4 Walk 150 ft (QC): 4 Gait Persons Needed: 1 Gait Assistive Device: Cane Single Point SBA, much more steady ambulation Exercises Standing: Heel/toe raises, Mini squats Standing Reps: 20 NuStep Minutes: 15 NuStep Workload: 5 (doesn't use left arm) Treatments bed mobility and transfers, ambulation, functional strengthening Assessment Current Status: Fair Progress improving general mobility but endurance is still low, needs frequent rest breaks PT Short Term Goals Short Term Goals Time Frame: February 13, 2022 Roll Left & Right: 6 Sit to lyin Lying to sitting on side of be: 4 (SBA) Sit to stand: 4 (SBA) Chair/hxo-eg-wlbqn transfer: 4 (SBA) Walk 10 feet: 4 (SBA) Walk 50 feet with two turns: 4 (SBA) Walk 150 feet: 4 (SBA) PT Budget Director Goals Senior Living Goals PT Senior Living Goals Time Frame: Feb 27, 2022 Roll Left & Right (QC): 6 Sit to Lying (QC): 6 Lying-Sitting on Side/Bed(QC): 6 Sit to Stand (QC): 5 Chair/Hbt-pf-Uwavj Xfer(QC): 5 Toilet Transfer (QC): 5 Car Transfer (QC): 5 Does the Patient Walk: Yes Walk 10 feet (QC): 5 Walk 50ft with 2 Turns (QC): 5 Walk 150 ft (QC): 5 Walking 10ft on Uneven Surface: 5 1 Step (curb) (QC): 4 4 Steps (QC): 4 12 Steps (QC): 88 Picking up an Object (QC): 5 Wheel 50 feet with 2 turns (QC: 9 Wheel 150 feet: 9 PT Plan Problem List Problem List: Activity Tolerance, Functional Strength, Safety, Balance, Gait, Transfer, Bed Mobility, ROM Treatment/Plan Treatment Plan: Continue Plan of Care Treatment Plan: Bed Mobility, Education, Functional Activity Jose Carlos, Functional Strength, Group Therapy, Gait, Safety, Therapeutic Exercise, Transfers Treatment Duration: Feb 27, 2022 Frequency: At least 5 of 7 days/Wk (IRF) Estimated Hrs Per Day: 1.5 hours per day Patient and/or Family Agrees t: Yes Safety Risks/Education Patient Education: Gait Training, Transfer Techniques, Correct Positioning, Safety Issues Teaching Recipient: Patient Teaching Methods: Demonstration, Discussion Response to Teaching: Reinforcement Needed Time/GCodes Time In: 1000 Time Out: 1100 Total Billed Treatment Time: 60 Total Billed Treatment 1 visit EX 20' FA 40' FELIZ GRIMM PT February 11, 2022 10:56
--- NOTE | 2022-02-11 13:32 | Physical Therapy Daily Note ---
PT Daily Note-Current Subjective Patient in bed pre tx, agrees to PT, voices no complaints of pain. Appearance Patient in bed post tx with nurse call, phone, tray, all needs met. Mental Status Patient Orientation: Person, Place, Situation Transfers SCALE: Activities may be completed with or without assistive devices. 9-Pvzhndypgv-hyvvgxw completes the activity by him/herself with no assistance from a helper. 5-Set-up or Clean-up Assistance-helper sets up or cleans up; patient completes activity. [place] assists only prior to or following the activity. 4-Supervision or Touching Assistance-helper provides verbal cues and/or touching/steadying and/or contact guard assistance as patient completes activity. Assistance may be provided throughout the activity or intermittently. 3-Partial/Moderate Assistance-helper does LESS THAN HALF the effort. [place] lifts, holds or supports trunk or limbs, but provides less than half the effort. 2-Substantial/Maximal Assistance-helper does MORE THAN HALF the effort. [place] lifts or holds trunk or limbs and provides more than half the effort. 3-Yczrndold-kjwhss does ALL the effort. Patient does none of the effort to complete the activity. Or, the assistance of 2 or more helpers is required for the patient to complete the activity. If activity was not attempted, code reason: 7-Patient Refused. 9-Not Applicable-not attempted and the patient did not perform the activity before the current illness, exacerbation or injury. 10-Not Attempted due to Environmental Limitations-(lack of equipment, weather restraints, etc.). 88-Not Attempted due to Medical Conditions or Safety Concerns. Roll Left & Right (QC): 6 Sit to Lying (QC): 6 Lying to Sitting/Side of Bed(Q: 6 Sit to Stand (QC): 4 Chair/Kkg-vx-Vwwli Xfer(QC): 4 Gait Training Distance: 150'x2 Walk 10 feet (QC): 4 Walk 50 ft with 2 Turns(QC): 4 Walk 150 ft (QC): 4 Gait Persons Needed: 1 Gait Assistive Device: Cane Single Point slightly faster ambulation, no LOB Exercises Standing: Hip Abduction, Marching Standing Reps: 20 Treatments bed mobility and transfers, ambulation, LE strengthening Assessment Current Status: Fair Progress good progress with general mobility, still has poor endurance and needs frequent rest breaks PT Short Term Goals Short Term Goals Time Frame: February 13, 2022 Roll Left & Right: 6 Sit to lyin Lying to sitting on side of be: 4 (SBA) Sit to stand: 4 (SBA) Chair/ifo-he-qfjov transfer: 4 (SBA) Walk 10 feet: 4 (SBA) Walk 50 feet with two turns: 4 (SBA) Walk 150 feet: 4 (SBA) PT Residential Goals Tax Assistant Goals PT Residential Goals Time Frame: Feb 27, 2022 Roll Left & Right (QC): 6 Sit to Lying (QC): 6 Lying-Sitting on Side/Bed(QC): 6 Sit to Stand (QC): 5 Chair/Cmp-xf-Yofkn Xfer(QC): 5 Toilet Transfer (QC): 5 Car Transfer (QC): 5 Does the Patient Walk: Yes Walk 10 feet (QC): 5 Walk 50ft with 2 Turns (QC): 5 Walk 150 ft (QC): 5 Walking 10ft on Uneven Surface: 5 1 Step (curb) (QC): 4 4 Steps (QC): 4 12 Steps (QC): 88 Picking up an Object (QC): 5 Wheel 50 feet with 2 turns (QC: 9 Wheel 150 feet: 9 PT Plan Problem List Problem List: Activity Tolerance, Functional Strength, Safety, Balance, Gait, T ransfer, Bed Mobility, ROM Treatment/Plan Treatment Plan: Continue Plan of Care Treatment Plan: Bed Mobility, Education, Functional Activity Jose Carlos, Functional Strength, Group Therapy, Gait, Safety, Therapeutic Exercise, Transfers Treatment Duration: Feb 27, 2022 Frequency: At least 5 of 7 days/Wk (IRF) Estimated Hrs Per Day: 1.5 hours per day Patient and/or Family Agrees t: Yes Safety Risks/Education Patient Education: Gait Training, Transfer Techniques, Correct Positioning, Safety Issues Teaching Recipient: Patient Teaching Methods: Demonstration, Discussion Response to Teaching: Reinforcement Needed Time/GCodes Time In: 1300 Time Out: 1330 Total Billed Treatment Time: 30 Total Billed Treatment 1 visit EX 10' FA 20' FELIZ GRIMM PT February 11, 2022 13:32
[2022-02-11] MEDS: RIVAROXABAN 20 MG TABLET (XARELTO) PO SCH (16:27)
[2022-02-11] MEDS: [UNRECOGNIZED DRUG - REMARK] PO SCH (16:30)
[2022-02-11] MEDS: FAMOTIDINE 20 MG (PEPCID) TABLET PO SCH (20:33)
[2022-02-11 20:48] VITALS: BP 129/63
[2022-02-12] MEDS: CATHETER FLUSH 10 ML SYR IVP SCH (06:46)
[2022-02-12] MEDS: PANTOPRAZOLE 40 MG (PROTONIX) TAB PO SCH ×2 (06:46→15:31)
[2022-02-12] MEDS: LACTOBACILLUS ACIDOPHILUS (PROBIOTIC) CAPSULE PO SCH (07:32)
[2022-02-12] MEDS: MIDODRINE 10 MG (PROAMATINE) TAB PO SCH ×3 (07:33→20:55)
[2022-02-12] MEDS: DOCUSATE SODIUM 100 MG (COLACE) CAP PO SCH ×2 (07:33→21:00)
[2022-02-12] MEDS: VITAMIN D3 25 MCG (1,000 UNITS) TABLET PO SCH (07:33)
[2022-02-12] MEDS: OMEGA 3 (FISH OIL) 1000 MG CAP PO SCH ×3 (07:33→17:39)
[2022-02-12] MEDS: FLUDROCORTISONE 0.1 MG (FLORINEF) TAB PO SCH (07:34)
[2022-02-12] MEDS: SENNA W/DOCUSATE (SENOKOT S) TABLET PO SCH ×2 (07:34→21:00)
[2022-02-12] MEDS: DICLOFENAC 1% GEL 100 GM (VOLTAREN) TUBE TOP SCH ×4 (07:36→21:00)
[2022-02-12 07:37] VITALS: BP 137/65
--- NOTE | 2022-02-12 07:55 | Occupational Ther Daily Note ---
OT Current Status-Daily Note Subjective Pt alert, lying in bed. Pt agrees to therapy. No c/o pain. Mental Status/Objective Patient Orientation: Person, Place, Time, Situation Attachments: IV ADL-Treatment Independent with eating sitting EOB. Independent with supine to EOB with HOB raised. Pt ambulated to bathroom without AD, SBA. Independent with toileting. In sitting, independent with oral care. Pt able to doff pants by self, verbal cues and assist to position pants for pt to thread B LE through pant legs then stood and hiked pants by self. Pt able to don/doff shoes by self. Therapy Code Descriptions/Definitions Functional [place] Measure: 0=Not Assessed/NA 4=Minimal Assistance 1=Total Assistance 5=Supervision or Setup 2=Maximal Assistance 6=Modified [place] 3=Moderate Assistance 7=Complete IndependenceSCALE: Activities may be completed with or without assistive devices. 5-Mdjcfqlkjs-ooasksd completes the activity by him/herself with no assistance from a helper. 5-Set-up or Clean-up Assistance-helper sets up or cleans up; patient completes activity. [place] assists only prior to or following the activity. 4-Supervision or Touching Assistance-helper provides verbal cues and/or touching/steadying and/or contact guard assistance as patient completes activity. Assistance may be provided throughout the activity or intermittently. 3-Partial/Moderate Assistance-helper does LESS THAN HALF the effort. [place] lifts, holds or supports trunk or limbs, but provides less than half the effort. 2-Substantial/Maximal Assistance-helper does MORE THAN HALF the effort. [place] lifts or holds trunk or limbs and provides more than half the effort. 1-Iwgbzyjpz-edyjgr does ALL the effort. Patient does none of the effort to complete the activity. Or, the assistance of 2 or more helpers is required for the patient to complete the activity. If activity was not attempted, code reason: 7-Patient Refused. 9-Not Applicable-not attempted and the patient did not perform the activity before the current illness, exacerbation or injury. 10-Not Attempted due to Environmental Limitations-(lack of equipment, weather restraints, etc.). 88-Not Attempted due to Medical Conditions or Safety Concerns. Eating (QC): 6 Oral Hygiene (QC): 6 Lower Body Dressing (QC): 3 On/Off Footwear: 5 Toileting Hygiene (QC): 6 Other Treatment Pt ambulated to therapy gym to work on L UE AROM and increasing ROM. Pt completed supine AROM exercises using cane to stretch and strengthen L shldr girdle, 3 sets 10 reps. Pt then completed AROM exercises in horizontal plane using cane while sliding along parallel bars to decrease resistance and increase shldr ROM. Improvement noted by L UE increasing AROM. After therapy, pt sitting in recliner with call light/phone in reach. All needs met in room. OT Short Term Goals Short Term Goals Time Frame: February 15, 2022 Eatin Oral hygiene: 5 Toileting hygiene: 3 Shower/bathe self: 3 Upper body dressin (mod) Lower body dressin (mod) Putting on/taking off footwear: 2 OT Marking Clerk Goals Detention Goals Time Frame: Feb 23, 2022 Eating (QC): 5 Oral Hygiene (QC): 5 Toileting Hygiene (QC): 6 Shower/Bathe Self (QC): 5 Upper Body Dressing (QC): 3 (min) Lower Body Dressing (QC): 3 (min) On/Off Footwear (QC): 3 (mod) 1=Demonstrate adherence to instructed precautions during ADL tasks. 2=Patient will verbalize/demonstrate understanding of assistive devices/modifications for ADL. 3=Patient will improve strength/tolerance for activity to enable patient to perform ADL's. OT Education/Plan Problem List/Assessment Assessment: Decreased Activ Tolerance, Decreased UE Strength, Impaired Self- Care Skills, Restricted Funct UE ROM, Visual-Perceptual Deficit Discharge Recommendations Plan/Recommendations: Continue POC Treatment Plan/Plan of Care Patient would benefit from OT for education, treatment and training to promote independence in ADL's, mobility, safety and/or upper extremity function for ADL's. Plan of Care: ADL Retraining, Functional Mobility, Group Exercise/Act as Ind, UE Funct Exercise/Act, UE Neuromus Re-Ed/Coord, Visual/Perceptual Retrain Treatment Duration: Feb 23, 2022 Frequency: At least 5 of 7 days/Wk (IRF) Estimated Hrs Per Day: 1.5 hours per day (75-90 min/day ) Agreement: Yes Rehab Potential: Fair Time/GCodes Start Time: 07:30 Stop Time: 09:00 Total Time Billed (hr/min): 90 Billed Treatment Time 1 visit-ADL 3 (45 min) NM 3 (45 min) AAKASH HODGES February 12, 2022 07:55
[2022-02-12] MEDS: polyethylene glycoL POWDER 17 GM (MIRALAX) PACK PO SCH ×2 (08:23→21:00)
--- NOTE | 2022-02-12 09:03 | PM&R Progress Note ---
Subjective HPI/CC On Admission Date Seen by Provider: February 12, 2022 Time Seen by Provider: 09:00 Subjective/Events-last exam 02/12/22: Patient doing well Ultram and APAP # 3 ordered at his request Voiding well Wants left knee injected and Dr Dimas will do that tomorrow DC planning 02/11/2022: Patient doing well No pain reported Left knee doing better No falls Balance better Eating well 02/10/2022: Patient has no complaints No pain No dark stools Tolerating DOAC 02/09/2022: Patient doing well No pain reported Left knee evaluated by Dr Dimas and reviewed xrays Diclofenac gel will be maintained 02/08/22: Pt is doing really well Voiding well Bowels moved yesterday Supportive care will continue 02/07/22: Pt is moving around really well Bowels moved today and it was dark so I will order a hemoccult Heating pad will be placed on the shoulder We will discontinue the [place] catheter if he has retention will consult Dr. Valencia, his urologist Review of Systems General: Fatigue, Malaise Musculoskeletal: leg pain Neurological: Weakness Objective Exam Vital Signs Vital Signs Date Time Temp Pulse Resp B/P (MAP) Pulse Ox O2 Delivery O2 Flow Rate FiO2 02/12/22 19:39 37.0 69 18 140/67 (91) 96 Room Air 02/09/22 11:02 0.00 02/09/22 11:02 21 Capillary Refill : General Appearance: No Apparent Distress, WD/WN, Chronically ill HEENT: PERRL/EOMI, Normal ENT Inspection, Pharynx Normal Neck: Full Range of Motion, Normal Inspection, Non Tender, Supple, Carotid Bruit Respiratory: Chest Non Tender, Lungs Clear, Normal Breath Sounds, No Accessory Muscle Use, No Respiratory Distress Cardiovascular: Regular Rate, Rhythm, No Edema, No Gallop, No JVD, No Murmur, Normal Peripheral Pulses Gastrointestinal: Normal Bowel Sounds, No Organomegaly, No Pulsatile Mass, Non Tender, Soft Back: Normal Inspection, No CVA Tenderness, No Vertebral Tenderness Extremity: Normal Capillary Refill, Normal Inspection, Normal Range of Motion, Non Tender, No Calf Tenderness, No Pedal Edema Neurologic/Psychiatric: Alert, Oriented x3, felt tipping machine tender II-XII Norm as Tested, Abnormal Gait, Depressed Affect, Motor Weakness (Generalized weakness) Skin: Normal Color, Warm/Dry Lymphatic: No Adenopathy Results/Procedures Lab Patient resulted labs reviewed. FIM Transfers Therapy Code Descriptions/Definitions Functional [place] Measure: 0=Not Assessed/NA 4=Minimal Assistance 1=Total Assistance 5=Supervision or Setup 2=Maximal Assistance 6=Modified [place] 3=Moderate Assistance 7=Complete IndependenceSCALE: Activities may be completed with or without assistive devices. 4-Nsmauxmlnp-uowvsma completes the activity by him/herself with no assistance from a helper. 5-Set-up or Clean-up Assistance-helper sets up or cleans up; patient completes activity. [place] assists only prior to or following the activity. 4-Supervision or Touching Assistance-helper provides verbal cues and/or touching/steadying and/or contact guard assistance as patient completes a ctivity. Assistance may be provided throughout the activity or intermittently. 3-Partial/Moderate Assistance-helper does LESS THAN HALF the effort. [place] lifts, holds or supports trunk or limbs, but provides less than half the effort. 2-Substantial/Maximal Assistance-helper does MORE THAN HALF the effort. [place] lifts or holds trunk or limbs and provides more than half the effort. 4-Obdvxzymg-vzwfhf does ALL the effort. Patient does none of the effort to complete the activity. Or, the assistance of 2 or more helpers is required for the patient to complete the activity. If activity was not attempted, code reason: 7-Patient Refused. 9-Not Applicable-not attempted and the patient did not perform the activity before the current illness, exacerbation or injury. 10-Not Attempted due to Environmental Limitations-(lack of equipment, weather restraints, etc.). 88-Not Attempted due to Medical Conditions or Safety Concerns. Roll Left to Right (QC): 6 Sit to Lying (QC): 6 Sit to Stand (QC): 4 Chair/Vcv-tv-Obsri Xfer(QC): 4 Car Transfer (QC): 4 Gait Training Does the Patient Walk?: Yes Distance: 150'x2 Walk 10 feet (QC): 4 Walk 50 ft with 2 Turns(QC): 4 Walk 150 ft (QC): 4 Walking 10ft/uneven surface-QC: 4 Gait Persons Needed: 1 Gait Assistive Device: Cane Single Point Wheelchair Training Does the Pt Use a Wheelchair?: No Wheel 50 ft with 2 turns (QC): 9 Wheel 150 ft (QC): 9 Stair Training #of Steps: 1 1 Step (curb) (QC): 4 4 Steps (QC): 88 12 Steps (QC): 88 Balance Picking up an Object (QC): 4 (with blast furnace operator) ADL-Treatment Eating (QC): 5 Oral Hygiene (QC): 6 Shower/Bathe Self (QC): 4 Upper Body Dressing (QC): 4 Lower Body Dressing (QC): 4 On/Off Footwear (QC): 3 Toileting Hygiene (QC): 4 Toilet Transfer (QC): 4 Assessment/Plan Assessment and Plan Assess & Plan/Chief Complaint Assessment: Subacute stroke suspect embolic in nature on MRI with left-sided weakness Isolated seizure Suspected aspiration pneumonia placed on antibiotics empirically 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 maintained on midodrine Previous stroke with left-sided weakness sustained during carotid endarterectomy CAD previous stents Hypertension Hyperlipidemia Prostate cancer undergoing Lupron and radiation seeds Carotid stenosis status post carotid endarterectomy Urinary frequency chronic GERD Previous UTI Poor nutrition Plan: Inpatient rehab Cardiology consult Supportive group home meds PT and OT 02/07/2022: DC catheter Heating pad to shoulder Anticoagulation per Dr. Escobar 02/08: Monitor closely Doing well 02/09: Monitor closely Dr Dimas appreciated 02/10/2022: Monitor progress Intense rehab 02/11/2022: Monitor closely Improved 02/12/22: Monitor closely Left knee injection (1) Paroxysmal atrial fibrillation Assessment & Plan: When he was in the intensive care unit his telemetry showed some brief episodes of irregular atrial rhythm that may have been short bursts of paroxysmal atrial fibrillation. In light of the new stroke in 2 different territories, this is certainly concerning for an embolic stroke due to atrial fibrillation. I changed his aspirin over to rivaroxaban. He should continue on high-dose statin medication. (2) Acute cerebrovascular accident Assessment & Plan: As above, this may have been due to atrial fibrillation. Although we did not see any atrial fibrillation on his implantable loop recorder prior to admission, due to possible atrial fibrillation seen during this hospitalization, He does not appear to have any major new neurologic deficits with his most recent stroke. He will continue with physical therapy on the inpatient rehabilitation unit for physical therapy and occupational therapy. (3) Mixed hyperlipidemia Assessment & Plan: Continue high-dose statin medication. (4) Orthostatic hypotension Status: Acute Assessment & Plan: He has had problems with severe orthostasis in the past. Continue midodrine and fludrocortisone. (5) Primary hypertension Assessment & Plan: He had a previous history of hypertension but then developed orthostasis and all of his antihypertensive medication was discontinued. (6) Seizure Status: Acute Assessment & Plan: He had a seizure in the emergency room but no evidence of recurrence. This may have been related to the acute cerebrovascular accident. GUILLERMO CABELLO DO February 12, 2022 09:03
[2022-02-12] MEDS ORDERED: APAP 300 MG/CODEINE 30 MG (TYLENOL #3) TAB PO PRN (12:45)
--- NOTE | 2022-02-12 12:53 | Physical Therapy Daily Note ---
PT Daily Note-Current Subjective Pt sitting in recliner upon arrival. Pt agrees to PT. Pain Location: No Pain Reported Mental Status Patient Orientation: Person, Place, Time, Situation Transfers SCALE: Activities may be completed with or without assistive devices. 4-Fsbrkcfklw-gnvzxri completes the activity by him/herself with no assistance from a helper. 5-Set-up or Clean-up Assistance-helper sets up or cleans up; patient completes activity. [place] assists only prior to or following the activity. 4-Supervision or Touching Assistance-helper provides verbal cues and/or touching/steadying and/or contact guard assistance as patient completes activity. Assistance may be provided throughout the activity or intermittently. 3-Partial/Moderate Assistance-helper does LESS THAN HALF the effort. [place] lifts, holds or supports trunk or limbs, but provides less than half the effort. 2-Substantial/Maximal Assistance-helper does MORE THAN HALF the effort. [place] lifts or holds trunk or limbs and provides more than half the effort. 0-Gwgdhbvyb-cqwjbn does ALL the effort. Patient does none of the effort to complete the activity. Or, the assistance of 2 or more helpers is required for the patient to complete the activity. If activity was not attempted, code reason: 7-Patient Refused. 9-Not Applicable-not attempted and the patient did not perform the activity bef ore the current illness, exacerbation or injury. 10-Not Attempted due to Environmental Limitations-(lack of equipment, weather r estraints, etc.). 88-Not Attempted due to Medical Conditions or Safety Concerns. Sit to Lying (QC): 5 Sit to Stand (QC): 5 Toilet Transfer (QC): 5 Weight Bearing Full Weight Bearing Full Weight Bearing Gait Training Does the Patient Walk?: Yes Distance: 500' x2 Walk 10 feet (QC): 5 Walk 50 ft with 2 Turns(QC): 5 Walk 150 ft (QC): 5 Gait Persons Needed: 1 Gait Assistive Device: Cane Single Point Majority of amb. is w/o AD but as pt fatigues or pt feels weaker in L knee, SPC is used. Exercises Standing: Hip Abduction, Hamstring curls, Heel/toe raises, Marching, Sit to Stand, Weight shifts Standing Reps: 15 NuStep Minutes: 15 NuStep Workload: 5 Treatments TF to standing then amb. to BR and in hallway. Pt uses NuStep then short RB. Pt completes Standing EX at //bars then amb. in hallway before returning to room. Pt returns to rest Supine in bed with all needs met, call light in hand. Assessment Current Status: Good Progress Pt is improving with strength, activity tolerance , mobility and balance. PT Short Term Goals Short Term Goals Time Frame: February 13, 2022 Roll Left & Right: 6 Sit to lyin Lying to sitting on side of be: 4 (SBA) Sit to stand: 4 (SBA) Chair/hfx-iz-utzph transfer: 4 (SBA) Walk 10 feet: 4 (SBA) Walk 50 feet with two turns: 4 (SBA) Walk 150 feet: 4 (SBA) PT Group Home Goals Pharmacy Intake Technician Goals PT Group Home Goals Time Frame: Feb 27, 2022 Roll Left & Right (QC): 6 Sit to Lying (QC): 6 Lying-Sitting on Side/Bed(QC): 6 Sit to Stand (QC): 5 Chair/Gjp-tf-Vwnok Xfer(QC): 5 Toilet Transfer (QC): 5 Car Transfer (QC): 5 Does the Patient Walk: Yes Walk 10 feet (QC): 5 Walk 50ft with 2 Turns (QC): 5 Walk 150 ft (QC): 5 Walking 10ft on Uneven Surface: 5 1 Step (curb) (QC): 4 4 Steps (QC): 4 12 Steps (QC): 88 Picking up an Object (QC): 5 Wheel 50 feet with 2 turns (QC: 9 Wheel 150 feet: 9 PT Plan Treatment/Plan Treatment Plan: Continue Plan of Care Treatment Plan: Bed Mobility, Education, Functional Activity Jose Carlos, Functional Strength, Group Therapy, Gait, Safety, Therapeutic Exercise, Transfers Treatment Duration: Feb 27, 2022 Frequency: At least 5 of 7 days/Wk (IRF) Estimated Hrs Per Day: 1.5 hours per day Patient and/or Family Agrees t: Yes Safety Risks/Education Patient Education: Gait Training, Correct Positioning Teaching Recipient: Patient Teaching Methods: Discussion Response to Teaching: Verbalize Understanding Time/GCodes Time In: 915 Time Out: 1045 Total Billed Treatment Time: 90 Total Billed Treatment 1, FA (15m), GT x2 (30m), EX x3 (45m) TAYLA KERNS LAND EXAMINER February 12, 2022 12:53
[2022-02-12] MEDS: RIVAROXABAN 20 MG TABLET (XARELTO) PO SCH (17:39)
[2022-02-12] MEDS: [UNRECOGNIZED DRUG - REMARK] PO SCH (17:39)
[2022-02-12 19:39] VITALS: BP 140/67
[2022-02-12] MEDS: FAMOTIDINE 20 MG (PEPCID) TABLET PO SCH (20:55)
--- NOTE | 2022-02-13 05:43 | PM&R Progress Note ---
Subjective HPI/CC On Admission Date Seen by Provider: February 13, 2022 Time Seen by Provider: 10:00 Subjective/Events-last exam 02/13/2022: Pt is doing really well Having a loss of balance at times Pain meds were discussed Left knee injection will be performed by Dr. Dimas 02/12/22: Patient doing well Ultram and APAP # 3 ordered at his request Voiding well Wants left knee injected and Dr Dimas will do that tomorrow DC planning 02/11/2022: Patient doing well No pain reported Left knee doing better No falls Balance better Eating well 02/10/2022: Patient has no complaints No pain No dark stools Tolerating DOAC 02/09/2022: Patient doing well No pain reported Left knee evaluated by Dr Dimas and reviewed xrays Diclofenac gel will be maintained 02/08/22: Pt is doing really well Voiding well Bowels moved yesterday Supportive care will continue 02/07/22: Pt is moving around really well Bowels moved today and it was dark so I will order a hemoccult Heating pad will be placed on the shoulder We will discontinue the marino catheter if he has retention will consult Dr. Valencia, his urologist Review of Systems General: Fatigue, Malaise Neurological: Weakness Objective Exam Vital Signs Vital Signs Date Time Temp Pulse Resp B/P (MAP) Pulse Ox O2 Delivery O2 Flow Rate FiO2 02/13/22 20:53 36.8 89 20 132/74 (93) 95 Room Air 02/09/22 11:02 0.00 02/09/22 11:02 21 Capillary Refill : General Appearance: No Apparent Distress, WD/WN, Chronically ill HEENT: PERRL/EOMI, Normal ENT Inspection, Pharynx Normal Neck: Full Range of Motion, Normal Inspection, Non Tender, Supple, Carotid Bruit Respiratory: Chest Non Tender, Lungs Clear, Normal Breath Sounds, No Accessory Muscle Use, No Respiratory Distress Cardiovascular: Regular Rate, Rhythm, No Edema, No Gallop, No JVD, No Murmur, Normal Peripheral Pulses Gastrointestinal: Normal Bowel Sounds, No Organomegaly, No Pulsatile Mass, Non Tender, Soft Back: Normal Inspection, No CVA Tenderness, No Vertebral Tenderness Extremity: Normal Capillary Refill, Normal Inspection, Normal Range of Motion, Non Tender, No Calf Tenderness, No Pedal Edema Neurologic/Psychiatric: Alert, Oriented x3, state patrol officer II-XII Norm as Tested, Abnormal Gait, Depressed Affect, Motor Weakness (Generalized weakness) Skin: Normal Color, Warm/Dry Lymphatic: No Adenopathy Results/Procedures Lab Patient resulted labs reviewed. FIM Transfers Therapy Code Descriptions/Definitions Functional [place] Measure: 0=Not Assessed/NA 4=Minimal Assistance 1=Total Assistance 5=Supervision or Setup 2=Maximal Assistance 6=Modified [place] 3=Moderate Assistance 7=Complete IndependenceSCALE: Activities may be completed with or without assistive devices. 2-Ptskjikkmw-yppkwir completes the activity by him/herself with no assistance from a helper. 5-Set-up or Clean-up Assistance-helper sets up or cleans up; patient completes activity. [place] assists only prior to or following the activity. 4-Supervision or Touching Assistance-helper provides verbal cues and/or touching/steadying and/or contact guard assistance as patient completes activity. Assistance may be provided throughout the activity or intermittently. 3-Partial/Moderate Assistance-helper does LESS THAN HALF the effort. [place] lifts, holds or supports trunk or limbs, but provides less than half the effort. 2-Substantial/Maximal Assistance-helper does MORE THAN HALF the effort. [place] lifts or holds trunk or limbs and provides more than half the effort. 8-[place] does ALL the effort. Patient does none of the effort to complete the activity. Or, the assistance of 2 or more helpers is required for the patient to complete the activity. If activity was not attempted, code reason: 7-Patient Refused. 9-Not Applicable-not attempted and the patient did not perform the activity before the current illness, exacerbation or injury. 10-Not Attempted due to Environmental Limitations-(lack of equipment, weather restraints, etc.). 88-Not Attempted due to Medical Conditions or Safety Concerns. Roll Left to Right (QC): 6 Sit to Lying (QC): 5 Sit to Stand (QC): 5 Chair/Ylu-xu-Syujv Xfer(QC): 4 Car Transfer (QC): 4 Gait Training Does the Patient Walk?: Yes Distance: 500' x2 Walk 10 feet (QC): 5 Walk 50 ft with 2 Turns(QC): 5 Walk 150 ft (QC): 5 Walking 10ft/uneven surface-QC: 4 Gait Persons Needed: 1 Gait Assistive Device: Cane Single Point Wheelchair Training Does the Pt Use a Wheelchair?: No Wheel 50 ft with 2 turns (QC): 9 Wheel 150 ft (QC): 9 Stair Training #of Steps: 1 1 Step (curb) (QC): 4 4 Steps (QC): 88 12 Steps (QC): 88 Balance Picking up an Object (QC): 4 (with gravity meter observer) ADL-Treatment Eating (QC): 6 Oral Hygiene (QC): 6 Shower/Bathe Self (QC): 4 Upper Body Dressing (QC): 4 Lower Body Dressing (QC): 3 On/Off Footwear (QC): 5 Toileting Hygiene (QC): 6 Toilet Transfer (QC): 4 Assessment/Plan Assessment and Plan Assess & Plan/Chief Complaint Assessment: Subacute stroke suspect embolic in nature on MRI with left-sided weakness Isolated seizure Suspected aspiration pneumonia placed on antibiotics empirically 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 maintained on midodrine Previous stroke with left-sided weakness sustained during carotid endarterectomy CAD previous stents Hypertension Hyperlipidemia Prostate cancer undergoing Lupron and radiation seeds Carotid stenosis status post carotid endarterectomy Urinary frequency chronic GERD Previous UTI Poor nutrition Plan: Inpatient rehab Cardiology consult Supportive long term meds PT and OT 02/07/2022: DC catheter Heating pad to shoulder Anticoagulation per Dr. Escobar 02/08: Monitor closely Doing well 02/09: Monitor closely Dr Dimas appreciated 02/10/2022: Monitor progress Intense rehab 02/11/2022: Monitor closely Improved 02/12/22: Monitor closely Left knee injection 02/13/2022: Supportive care Discharge 02/17/2022 (1) Paroxysmal atrial fibrillation Assessment & Plan: When he was in the intensive care unit his telemetry showed some brief episodes of irregular atrial rhythm that may have been short bursts of paroxysmal atrial fibrillation. In light of the new stroke in 2 different territories, this is certainly concerning for an embolic stroke due to atrial fibrillation. I changed his aspirin over to rivaroxaban. He should continue on high-dose statin medication. (2) Acute cerebrovascular accident Assessment & Plan: As above, this may have been due to atrial fibrillation. Although we did not see any atrial fibrillation on his implantable loop recorder prior to admission, due to possible atrial fibrillation seen during this hospitalization, He does not appear to have any major new neurologic deficits with his most recent stroke. He will continue with physical therapy on the inpatient rehabilitation unit for physical therapy and occupational therapy. (3) Mixed hyperlipidemia Assessment & Plan: Continue high-dose statin medication. (4) Orthostatic hypotension Status: Acute Assessment & Plan: He has had problems with severe orthostasis in the past. Continue midodrine and fludrocortisone. (5) Primary hypertension Assessment & Plan: He had a previous history of hypertension but then developed orthostasis and all of his antihypertensive medication was discontinued. (6) Seizure Status: Acute Assessment & Plan: He had a seizure in the emergency room but no evidence of recurrence. This may have been related to the acute cerebrovascular accident. GUILLERMO CABELLO DO February 13, 2022 05:43
[2022-02-13] MEDS: PANTOPRAZOLE 40 MG (PROTONIX) TAB PO SCH ×2 (06:20→16:34)
[2022-02-13] MEDS: LACTOBACILLUS ACIDOPHILUS (PROBIOTIC) CAPSULE PO SCH (07:42)
[2022-02-13] MEDS: FLUDROCORTISONE 0.1 MG (FLORINEF) TAB PO SCH (07:42)
[2022-02-13] MEDS: VITAMIN D3 25 MCG (1,000 UNITS) TABLET PO SCH (07:43)
[2022-02-13] MEDS: MIDODRINE 10 MG (PROAMATINE) TAB PO SCH ×3 (07:43→20:19)
[2022-02-13] MEDS: DOCUSATE SODIUM 100 MG (COLACE) CAP PO SCH ×2 (07:43→19:26)
[2022-02-13] MEDS: polyethylene glycoL POWDER 17 GM (MIRALAX) PACK PO SCH ×2 (07:43→19:26)
[2022-02-13] MEDS: OMEGA 3 (FISH OIL) 1000 MG CAP PO SCH ×3 (07:43→17:51)
[2022-02-13 07:44] VITALS: BP 119/70
[2022-02-13] MEDS: SENNA W/DOCUSATE (SENOKOT S) TABLET PO SCH ×2 (07:44→19:26)
[2022-02-13] MEDS: DICLOFENAC 1% GEL 100 GM (VOLTAREN) TUBE TOP SCH ×4 (07:56→20:51)
--- NOTE | 2022-02-13 10:27 | Progress Note ---
BILL PEDRO 02/13/22 1027: Progress Note Subjective: CC: Left Sided Weakness and Debility Secondary to a Subacute Stroke, HPI: The patient was laying in bed comfortably this morning. He reports that his in patient rehab progress is going well. He reports that he continues to use his cane to ambulate and that he is still ambulating at times without his cane. The patient's bowels are moving well. The patient reports having a dizziness episode this morning when standing up too quickly, and he reports that he did not fall with this dizziness episode. He continues with L knee pain and orthopedics is planning to do an injection today. ROS: Constitutional: no fevers, no chills EENTM: no vision changes Respiratory: no cough, no dyspnea Cardiovascular: no chest pain, no palpitations Gastrointestinal: no constipation, no vomiting Musculoskeletal: L knee pain Skin: no change in color, no concerning lesions Psychiatric/Neurological: no anxiety, no depression Objective: Vitals: T: 36.5, HR: 93, RR: 18, BP: 119/70, 96% room air PE: General Appearance: No Apparent Distress Eyes: Bilateral Eye Normal Inspection, Bilateral Eye PERRL HEENT: PERRL/EOMI, mocuous membranes moist Neck: normal inspection, normal ROM Respiratory: Chest Non Tender, Lungs Clear, Normal Breath Sounds, No Accessory Muscle Use, No Respiratory Distress Cardiovascular: Regular Rate, Rhythm, No Edema, No Gallop, No JVD, No Murmur, Normal Peripheral Pulses Gastrointestinal: Normal Bowel Sounds, No Organomegaly, No Pulsatile Mass, Non Tender, Soft Extremity: Normal Inspection, Non Tender, No Calf Tenderness, No Pedal Edema, Neurologic/Psychiatric: Alert, Oriented x3, Normal Mood/Affect, 4/5 LUE Strength, 5/5 RUE strength, 5/5 RLE and LLE Strength. CN II- X, and XII normal as tested. CN XI: slight weakness on L shoulder shrug. Skin: Normal Color, Warm/Dry Assessment: Left sided weakness Debility Subacute stroke, with MRI showing suspected embolic cause Left knee pain Carotid artery stenosis status post carotid endarterectony in 2020 HX of stroke during carotid endarterectomy resulting in L sided weakness HTN HLP CAD with stenting Prostate cancer on Lupron and radiation seed therapy UTI Hx Urinary frequency Anemia Hypokalemia Anticoagulation Plan: Left sided weakness Debility Subacute stroke, with MRI showing suspected embolic cause Carotid artery stenosis status post carotid endarterectony in 2020 HX of stroke during carotid endarterectomy resulting in L sided weakness The patient will continue with inpatient rehab. He is content with is progress thus far. He will continue to work on his ambulation, balance, strength and endurance. We will continue to monitor his strength levels and neurological status. Orthopedics is planning to do an injection of his left knee today. The patient was comfortable with this plan. Discharge planned for 02/17/22. HTN HLP CAD with stenting Continue home meds. Cardiology following, we appreciate their recommendations. Prostate cancer on Lupron and radiation seed therapy UTI Hx Urinary frequency Continue Lupron therapy. Monitor for any urinary changes. Anemia Hypokalemia Continue to monitor K+ and hemoglobin. Anticoagulation Xeralto 20mg daily. ANABEL CABELLO DO 02/13/222100: Supervisory-Addendum Brief Verification & Attestation Participated in pt care: history, MDM, physical Personally performed: exam, history, MDM, supervision of care Care discussed with: Medical Student Procedures: n/a Results interpretation: Verified all documentation Verification and Attestation of Medical Student E/M Service A medical student performed and documented this service in my presence. I reviewed and verified all information documented by the medical student and made modifications to such information, when appropriate. I personally performed the physical exam and medical decision making. Anabel Cabello, February 13, 2022,21:01 BILL PEDRO February 13, 2022 10:27 ANABEL CABELLO DO February 13, 2022 21:01
--- NOTE | 2022-02-13 11:46 | Progress Note - Ortho ---
Progress Note Subjective Date of Exam 02/13/22 Chief Complaint L Knee Pain HPI/Events since last exam Requests to proceed with injection Review of Systems - Allergies: Coded Allergies: aloe vera (Verified Allergy, Unknown, RASH, 01/30/22) cephalexin (Verified Allergy, Unknown, FACE THROAT SWELLING, 01/30/22) influenza virus vaccine ts [id number] (36 mos,up) (Verified Allergy, Unknown, TERRIBLE REACTION, 01/30/22) Home Meds Reported Medications Fludrocortisone Acetate (Fludrocortisone Acetate) 0.1 Mg Tab, 0.1 MG PO DAILY, TAB 02/05/22 [place]-3/Dha/Epa/Fish Oil (Megared Adv 6X Abs 800 mg Sfgl) 476 Mg-800 Mg Capsule, 1 EACH PO DAILY, CAP 02/05/22 Acetaminophen (Tylenol) 325 Mg Tablet, 650 MG PO Q6H PRN for PAIN-MILD (1-4), TAB 02/05/22 Sennosides/Docusate Sodium (Senna-S Tablet) 8.6 Mg-50 Mg Tablet, 1 EACH PO BID PRN for CONSTIPATION-6TH LINE, TAB 02/05/22 Silodosin (Silodosin) 8 Mg Capsule, 8 MG PO 1800, CAP 02/05/22 Midodrine HCl (Midodrine HCl) 5 Mg Tablet, 5 MG PO 0900,1500,2100, TAB 02/05/22 Cholecalciferol (Vitamin D3) (Vitamin D3) 50 Mcg (2000 Unit) Tablet, 50 MCG PO DAILY, TAB 02/05/22 Lactobacillus Acidophilus (Probiotic) 10 Billion Cell Capsule, 1 EACH PO DAILY, CAP 02/05/22 Aspirin (Aspirin EC) 81 Mg Tablet.dr, 81 MG PO DAILY, TAB HAS BEEN ON HOLD SINCE 01-30-2022 DUE TO AN UPCOMING PROCEDURE 11/06/21 Diclofenac Sodium (Diclofenac Sodium) 100 Gm Gel..gram., 1 APPLIC TP QID PRN for PAIN-BREAKTHROUGH, EA APPLY TO AFFECTED KNEES 11/06/21 Pantoprazole Sodium (Pantoprazole Sodium) 40 Mg Tablet.dr, 40 MG PO BIDAC, TAB 11/06/21 Atorvastatin Calcium (Atorvastatin Calcium) 80 Mg Tablet, 80 MG PO HS, TAB 11/06/21 Famotidine (Acid [place] (FAMOTIDINE)) 20 Mg Tablet, 20 MG PO HS, TAB 11/06/21 Objective Exam L Knee: prepped with alcohol and betadine, 22 gauge needle used to deliver 40 mg of kenalog to the suprapatellar pouch, site dressed with a band-aid Assessment and Plan Assessment L Knee Primary OA Problem List L Knee Primary OA Plan Injected Final Diagonsis L Knee Primary OA Level of the visit: Level 3 (injection only) ERIN MCINTYRE MD February 13, 2022 11:46
--- NOTE | 2022-02-13 12:01 | Physical Therapy Daily Note ---
PT Daily Note-Current Subjective Pt sitting in recliner upon arrival. Pt agrees to PT. Pain Location: No Pain Reported Mental Status Patient Orientation: Person, Place, Time, Situation Transfers SCALE: Activities may be completed with or without assistive devices. 8-Gzmpelnwba-ktxwsya completes the activity by him/herself with no assistance from a helper. 5-Set-up or Clean-up Assistance-helper sets up or cleans up; patient completes activity. [place] assists only prior to or following the activity. 4-Supervision or Touching Assistance-helper provides verbal cues and/or touching/steadying and/or contact guard assistance as patient completes activity. Assistance may be provided throughout the activity or intermittently. 3-Partial/Moderate Assistance-helper does LESS THAN HALF the effort. [place] lifts, holds or supports trunk or limbs, but provides less than half the effort. 2-Substantial/Maximal Assistance-helper does MORE THAN HALF the effort. [place] lifts or holds trunk or limbs and provides more than half the effort. 4-Xnrfxlxmy-vqlofo does ALL the effort. Patient does none of the effort to complete the activity. Or, the assistance of 2 or more helpers is required for the patient to complete the activity. If activity was not attempted, code reason: 7-Patient Refused. 9-Not Applicable-not attempted and the patient did not perform the activity bef ore the current illness, exacerbation or injury. 10-Not Attempted due to Environmental Limitations-(lack of equipment, weather r estraints, etc.). 88-Not Attempted due to Medical Conditions or Safety Concerns. Sit to Stand (QC): 6 Weight Bearing Full Weight Bearing Full Weight Bearing Gait Training Does the Patient Walk?: Yes Distance: 500', 150' Walk 10 feet (QC): 6 Walk 50 ft with 2 Turns(QC): 5 Walk 150 ft (QC): 5 Gait Assistive Device: Cane Single Point No AD until fatigued then SPC at SBA Exercises Standing: Hip Abduction, Heel/toe raises, Marching, Mini squats Standing Reps: 15 NuStep Minutes: 15 NuStep Workload: 5 Treatments After finishing his drink, pt stands and uses BR. Pt amb. in hallway before amb. to Therapy Gym. Pt uses NuStep, takes short RB then completes Standing EX at //bars. Pt amb. in hallway then returns to room to rest in recliner. All needs met, call light in hand. Assessment Current Status: Excellent Progress Pt takes seldom RB but will when fatigued. Pt continues to work on balance which has improved. PT Short Term Goals Short Term Goals Time Frame: February 13, 2022 Roll Left & Right: 6 Sit to lyin Lying to sitting on side of be: 4 (SBA) Sit to stand: 4 (SBA) Chair/sot-wm-htibk transfer: 4 (SBA) Walk 10 feet: 4 (SBA) Walk 50 feet with two turns: 4 (SBA) Walk 150 feet: 4 (SBA) PT Ict Development Manager Goals Ict Development Manager Goals PT Ict Development Manager Goals Time Frame: Feb 27, 2022 Roll Left & Right (QC): 6 Sit to Lying (QC): 6 Lying-Sitting on Side/Bed(QC): 6 Sit to Stand (QC): 5 Chair/Hro-ul-Zmbcd Xfer(QC): 5 Toilet Transfer (QC): 5 Car Transfer (QC): 5 Does the Patient Walk: Yes Walk 10 feet (QC): 5 Walk 50ft with 2 Turns (QC): 5 Walk 150 ft (QC): 5 Walking 10ft on Uneven Surface: 5 1 Step (curb) (QC): 4 4 Steps (QC): 4 12 Steps (QC): 88 Picking up an Object (QC): 5 Wheel 50 feet with 2 turns (QC: 9 Wheel 150 feet: 9 PT Plan Treatment/Plan Treatment Plan: Continue Plan of Care Treatment Plan: Bed Mobility, Education, Functional Activity Jose Carlos, Functional Strength, Group Therapy, Gait, Safety, Therapeutic Exercise, Transfers Treatment Duration: Feb 27, 2022 Frequency: At least 5 of 7 days/Wk (IRF) Estimated Hrs Per Day: 1.5 hours per day Patient and/or Family Agrees t: Yes Safety Risks/Education Patient Education: Gait Training, Safety Issues Teaching Recipient: Patient Teaching Methods: Discussion Response to Teaching: Verbalize Understanding Time/GCodes Time In: 915 Time Out: 1045 Total Billed Treatment Time: 90 Total Billed Treatment 1, GT x2 (30m), FA x2 (30m) & EX x2 (30m) TAYLA KERNS NURSE TRANSPLANT February 13, 2022 12:01
--- NOTE | 2022-02-13 13:23 | Occupational Ther Daily Note ---
OT Current Status-Daily Note Subjective Pt alert, lying in bed. Pt agrees to therapy. No c/o pain. Mental Status/Objective Patient Orientation: Person, Place, Time, Situation ADL-Treatment Independent with eating sitting EOB. Independent with supine to EOB. Pt ambulated to bathroom without AD, SBA. In sitting, independent with oral care. Pt able to doff shirt by self, verbal cues and assist to position shirt for pt to thread B UE through sleeves and head through neck hole. Pt able to don/doff shoes by self. Therapy Code Descriptions/Definitions Functional [place] Measure: 0=Not Assessed/NA 4=Minimal Assistance 1=Total Assistance 5=Supervision or Setup 2=Maximal Assistance 6=Modified [place] 3=Moderate Assistance 7=Complete IndependenceSCALE: Activities may be completed with or without assistive devices. 4-Mzcffnhjny-cxuowhf completes the activity by him/herself with no assistance from a helper. 5-Set-up or Clean-up Assistance-helper sets up or cleans up; patient completes activity. [place] assists only prior to or following the activity. 4-Supervision or Touching Assistance-helper provides verbal cues and/or touching/steadying and/or contact guard assistance as patient completes activity. Assistance may be provided throughout the activity or intermittently. 3-Partial/Moderate Assistance-helper does LESS THAN HALF the effort. [place] lifts, holds or supports trunk or limbs, but provides less than half the effort. 2-Substantial/Maximal Assistance-helper does MORE THAN HALF the effort. [place] lifts or holds trunk or limbs and provides more than half the effort. 8-Iavuahgcv-fymqqm does ALL the effort. Patient does none of the effort to complete the activity. Or, the assistance of 2 or more helpers is required for the patient to complete the activity. If activity was not attempted, code reason: 7-Patient Refused. 9-Not Applicable-not attempted and the patient did not perform the activity before the current illness, exacerbation or injury. 10-Not Attempted due to Environmental Limitations-(lack of equipment, weather restraints, etc.). 88-Not Attempted due to Medical Conditions or Safety Concerns. Oral Hygiene (QC): 6 Upper Body Dressing (QC): 4 Other Treatment Pt ambulated to therapy gym to work on L UE AROM and increasing ROM. Pt compl eted supine AROM exercises using cane to stretch and strengthen L shldr girdle, 3 sets 10 reps. Pt then completed AROM exercises in horizontal plane using cane while sliding along parallel bars to decrease resistance and increase shldr ROM. Improvement noted by L UE increasing AROM. Arm bike completed for 10 min without resistance. After therapy, pt sitting in recliner with call light/phone in reach. All needs met in room. OT Short Term Goals Short Term Goals Time Frame: February 15, 2022 Eatin Oral hygiene: 5 Toileting hygiene: 3 Shower/bathe self: 3 Upper body dressin (mod) Lower body dressin (mod) Putting on/taking off footwear: 2 OT Human Capital Consultant Goals [facility] Goals Time Frame: Feb 23, 2022 Eating (QC): 5 Oral Hygiene (QC): 5 Toileting Hygiene (QC): 6 Shower/Bathe Self (QC): 5 Upper Body Dressing (QC): 3 (min) Lower Body Dressing (QC): 3 (min) On/Off Footwear (QC): 3 (mod) 1=Demonstrate adherence to instructed precautions during ADL tasks. 2=Patient will verbalize/demonstrate understanding of assistive devices/modifications for ADL. 3=Patient will improve strength/tolerance for activity to enable patient to perform ADL's. OT Education/Plan Problem List/Assessment Assessment: Decreased Activ Tolerance, Decreased UE Strength, Impaired Self- Care Skills, Restricted Funct UE ROM Discharge Recommendations Plan/Recommendations: Continue POC Treatment Plan/Plan of Care Patient would benefit from OT for education, treatment and training to promote independence in ADL's, mobility, safety and/or upper extremity function for ADL's. Plan of Care: ADL Retraining, Functional Mobility, Group Exercise/Act as Ind, UE Funct Exercise/Act, UE Neuromus Re-Ed/Coord, Visual/Perceptual Retrain Treatment Duration: Feb 23, 2022 Frequency: At least 5 of 7 days/Wk (IRF) Estimated Hrs Per Day: 1.5 hours per day (75-90 min/day ) Agreement: Yes Rehab Potential: Fair Time/GCodes Start Time: 07:30 Stop Time: 09:00 Total Time Billed (hr/min): 90 Billed Treatment Time 1 visit-ADL 2 (35 min) FA 1 (15 min) NM 2 (25 min) AAKASH HODGES February 13, 2022 13:22
[2022-02-13] MEDS: RIVAROXABAN 20 MG TABLET (XARELTO) PO SCH (16:34)
[2022-02-13] MEDS: [UNRECOGNIZED DRUG - REMARK] PO SCH (17:52)
--- NOTE | 2022-02-13 18:42 | Cardiology Progress Note ---
Progress Note-Cardiology Events since last exam Date Seen by Provider: February 13, 2022 Time Seen by Provider: 18:39 Events since last exam I am following him due to paroxysmal atrial fibrillation and acute/subacute stroke during this admission. He remains on the inpatient rehabilitation unit. His physical therapy is going well. He feels like he is back to his previous baseline with mild left hemiparesis. He denies chest pain, dyspnea, palpitations, syncope, or ankle edema. He may need a procedure in the near future for his prostate carcinoma. Certain portions of this document may have been dictated utilizing voice recognition technology. Inherent to this technology, typographical and grammatical errors may exist. As much as I am diligent to identify and correct these mistakes, some errors may remain in the document. Vitals Last set of Vitals Signs Vital Signs 02/09/22 02/13/22 02/13/22 11:02 07:44 08:03 Temp 36.5 Pulse 93 Resp 18 B/P (MAP) 119/70 (86) Pulse Ox 96 O2 Delivery Room Air O2 Flow Rate 0.00 FiO2 21 Exam Vital Signs Vital Signs Date Time Temp Pulse Resp B/P (MAP) Pulse Ox O2 Delivery O2 Flow Rate FiO2 02/13/22 08:03 Room Air 02/13/22 07:44 36.5 93 18 119/70 (86) 96 02/09/22 11:02 0.00 02/09/22 11:02 21 Physical Exam General: Alert. No acute distress. Eye: No xanthelasma. HENT: Normocephalic. Neck: Jugular venous pressure does not appear elevated. Respiratory: Lungs are clear to auscultation. Respirations are non-labored. Breath sounds are equal. Symmetrical chest wall expansion. Cardiovascular: Normal rate. Regular rhythm. No murmur. No gallop. No edema. Gastrointestinal: Soft. Normal bowel sounds. Skin: Warm. Dry. Neurologic: Alert and oriented to person, place, time. Cranial nerves 3-11 grossly intact. Partial left hemiparesis with weakness of left arm and leg, unchanged from previous stroke over 1 month ago. Psychiatric: Cooperative. Appropriate mood & affect. Diagnosis/Problems Diagnosis/Problems (1) Paroxysmal atrial fibrillation Assessment & Plan: When he was in the intensive care unit his telemetry showed some brief episodes of irregular atrial rhythm that may have been short bursts of paroxysmal atrial fibrillation. In light of the new stroke in 2 different t erritories, this is certainly concerning for an embolic stroke due to atrial fibrillation. I changed his aspirin over to rivaroxaban. He should continue on high-dose statin medication. We will continue to monitor his implantable loop recorder via his remote monitor which he has in his room. If he needs to have an invasive procedure, he should stop his regular rocks abandoned the day before the procedure and resume this as soon as possible following the procedure. There is no indication for bridging with heparin or enoxaparin. (2) Acute cerebrovascular accident Assessment & Plan: As above, this may have been due to atrial fibrillation. Although we did not see any atrial fibrillation on his implantable loop recorder prior to admission, due to possible atrial fibrillation seen during this hospitalization, his aspirin was changed to rivaroxaban. He does not appear to have any major new neurologic deficits with his most recent stroke. He will continue with physical therapy on the inpatient rehabilitation unit for physical therapy and occupational therapy. (3) Mixed hyperlipidemia Assessment & Plan: Continue high-dose statin medication. (4) Orthostatic hypotension Status: Acute Assessment & Plan: He has had problems with severe orthostasis in the past. Continue midodrine and fludrocortisone. He had been prescribed Flomax which may have caused a dip in his blood pressure and this has been changed to Rapaflo. (5) Primary hypertension Assessment & Plan: He had a previous history of hypertension but then developed orthostasis and all of his antihypertensive medication was discontinued. (6) Seizure Status: Acute Assessment & Plan: He had a seizure in the emergency room but no evidence of recurrence. This may have been related to the acute cerebrovascular accident. JUAN CARLOS CHACKO JR, MD February 13, 2022 18:42
[2022-02-13] MEDS: FAMOTIDINE 20 MG (PEPCID) TABLET PO SCH (20:19)
[2022-02-13 20:53] VITALS: BP 132/74
--- NOTE | 2022-02-14 06:35 | PM&R Progress Note ---
Subjective HPI/CC On Admission Date Seen by Provider: February 14, 2022 Time Seen by Provider: 12:00 Subjective/Events-last exam 02/14/2022: Pt is doing really well Discharge on Friday No falls Left knee improved with injection 02/13/2022: Pt is doing really well Having a loss of balance at times Pain meds were discussed Left knee injection will be performed by Dr. Dimas 02/12/22: Patient doing well Ultram and APAP # 3 ordered at his request Voiding well Wants left knee injected and Dr Dimas will do that tomorrow DC planning 02/11/2022: Patient doing well No pain reported Left knee doing better No falls Balance better Eating well 02/10/2022: Patient has no complaints No pain No dark stools Tolerating DOAC 02/09/2022: Patient doing well No pain reported Left knee evaluated by Dr Dimas and reviewed xrays Diclofenac gel will be maintained 02/08/22: Pt is doing really well Voiding well Bowels moved yesterday Supportive care will continue 02/07/22: Pt is moving around really well Bowels moved today and it was dark so I will order a hemoccult Heating pad will be placed on the shoulder We will discontinue the marino catheter if he has retention will consult Dr. Valencia, his urologist Review of Systems General: Fatigue, Malaise Objective Exam Vital Signs Vital Signs Date Time Temp Pulse Resp B/P (MAP) Pulse Ox O2 Delivery O2 Flow Rate FiO2 02/14/22 19:22 Room Air 02/14/22 19:20 37.1 82 20 142/64 (90) 96 02/09/22 11:02 0.00 02/09/22 11:02 21 Capillary Refill : General Appearance: No Apparent Distress, WD/WN, Chronically ill HEENT: PERRL/EOMI, Normal ENT Inspection, Pharynx Normal Neck: Full Range of Motion, Normal Inspection, Non Tender, Supple, Carotid Bruit Respiratory: Chest Non Tender, Lungs Clear, Normal Breath Sounds, No Accessory Muscle Use, No Respiratory Distress Cardiovascular: Regular Rate, Rhythm, No Edema, No Gallop, No JVD, No Murmur, Normal Peripheral Pulses Gastrointestinal: Normal Bowel Sounds, No Organomegaly, No Pulsatile Mass, Non Tender, Soft Back: Normal Inspection, No CVA Tenderness, No Vertebral Tenderness Extremity: Normal Capillary Refill, Normal Inspection, Normal Range of Motion, Non Tender, No Calf Tenderness, No Pedal Edema Neurologic/Psychiatric: Alert, Oriented x3, hr administrator II-XII Norm as Tested, Abnormal Gait, Depressed Affect, Motor Weakness (Generalized weakness) Skin: Normal Color, Warm/Dry Lymphatic: No Adenopathy Results/Procedures Lab Patient resulted labs reviewed. FIM Transfers Therapy Code Descriptions/Definitions Functional [place] Measure: 0=Not Assessed/NA 4=Minimal Assistance 1=Total Assistance 5=Supervision or Setup 2=Maximal Assistance 6=Modified [place] 3=Moderate Assistance 7=Complete IndependenceSCALE: Activities may be completed with or without assistive devices. 4-Bhpdyycqsv-xureeec completes the activity by him/herself with no assistance from a helper. 5-Set-up or Clean-up Assistance-helper sets up or cleans up; patient completes activity. [place] assists only prior to or following the activity. 4-Supervision or Touching Assistance-helper provides verbal cues and/or touching/steadying and/or contact guard assistance as patient completes activity. Assistance may be provided throughout the activity or intermittently. 3-Partial/Moderate Assistance-helper does LESS THAN HALF the effort. [place] lifts, holds or supports trunk or limbs, but provides less than half the effort. 2-Substantial/Maximal Assistance-helper does MORE THAN HALF the effort. [place] lifts or holds trunk or limbs and provides more than half the effort. 7-Fzqvpzqhn-ntxnxj does ALL the effort. Patient does none of the effort to complete the activity. Or, the assistance of 2 or more helpers is required for the patient to complete the activity. If activity was not attempted, code reason: 7-Patient Refused. 9-Not Applicable-not attempted and the patient did not perform the activity before the current illness, exacerbation or injury. 10-Not Attempted due to Environmental Limitations-(lack of equipment, weather restraints, etc.). 88-Not Attempted due to Medical Conditions or Safety Concerns. Roll Left to Right (QC): 6 Sit to Lying (QC): 5 Sit to Stand (QC): 6 Chair/Uav-zm-Diiky Xfer(QC): 4 Car Transfer (QC): 4 Gait Training Does the Patient Walk?: Yes Distance: 500', 150' Walk 10 feet (QC): 6 Walk 50 ft with 2 Turns(QC): 5 Walk 150 ft (QC): 5 Walking 10ft/uneven surface-QC: 4 Gait Persons Needed: 1 Gait Assistive Device: Cane Single Point Wheelchair Training Does the Pt Use a Wheelchair?: No Wheel 50 ft with 2 turns (QC): 9 Wheel 150 ft (QC): 9 Stair Training #of Steps: 1 1 Step (curb) (QC): 4 4 Steps (QC): 88 12 Steps (QC): 88 Balance Picking up an Object (QC): 4 (with library page) ADL-Treatment Eating (QC): 6 Oral Hygiene (QC): 6 Shower/Bathe Self (QC): 4 Upper Body Dressing (QC): 4 Lower Body Dressing (QC): 3 On/Off Footwear (QC): 5 Toileting Hygiene (QC): 6 Toilet Transfer (QC): 4 Assessment/Plan Assessment and Plan Assess & Plan/Chief Complaint Assessment: Subacute stroke suspect embolic in nature on MRI with left-sided weakness Isolated seizure Suspected aspiration pneumonia placed on antibiotics empirically 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 maintained on midodrine Previous stroke with left-sided weakness sustained during carotid endarterectomy CAD previous stents Hypertension Hyperlipidemia Prostate cancer undergoing Lupron and radiation seeds Carotid stenosis status post carotid endarterectomy Urinary frequency chronic GERD Previous UTI Poor nutrition Plan: Inpatient rehab Cardiology consult Supportive [facility] meds PT and OT 02/07/2022: DC catheter Heating pad to shoulder Anticoagulation per Dr. Escobar 02/08: Monitor closely Doing well 02/09: Monitor closely Dr Dimas appreciated 02/10/2022: Monitor progress Intense rehab 02/11/2022: Monitor closely Improved 02/12/22: Monitor closely Left knee injection 02/13/2022: Supportive care Discharge 02/17/2022 02/14/2022: Discharge 02/17/2022 (1) Paroxysmal atrial fibrillation Assessment & Plan: When he was in the intensive care unit his telemetry showed some brief episodes of irregular atrial rhythm that may have been short bursts of paroxysmal atrial fibrillation. In light of the new stroke in 2 different territories, this is certainly concerning for an embolic stroke due to atrial fibrillation. I changed his aspirin over to rivaroxaban. He should continue on high-dose statin medication. We will continue to monitor his implantable loop recorder via his remote monitor which he has in his room. If he needs to have an invasive procedure, he should stop his regular rocks abandoned the day before the procedure and resume this as soon as possible following the procedure. There is no indication for bridging with heparin or enoxaparin. (2) Acute cerebrovascular accident Assessment & Plan: As above, this may have been due to atrial fibrillation. Although we did not see any atrial fibrillation on his implantable loop recorder prior to admission, due to possible atrial fibrillation seen during this hospitalization, his aspirin was changed to rivaroxaban. He does not appear to have any major new neurologic deficits with his most recent stroke. He will continue with physical therapy on the inpatient rehabilitation unit for physical therapy and occupational therapy. (3) Mixed hyperlipidemia Assessment & Plan: Continue high-dose statin medication. (4) Orthostatic hypotension Status: Acute Assessment & Plan: He has had problems with severe orthostasis in the past. Continue midodrine and fludrocortisone. He had been prescribed Flomax which may have caused a dip in his blood pressure and this has been changed to Rapaflo. (5) Primary hypertension Assessment & Plan: He had a previous history of hypertension but then developed orthostasis and all of his antihypertensive medication was discontinued. (6) Seizure Status: Acute Assessment & Plan: He had a seizure in the emergency room but no evidence of recurrence. This may have been related to the acute cerebrovascular accident. GUILLERMO CABELLO DO February 14, 2022 06:35
[2022-02-14] MEDS: PANTOPRAZOLE 40 MG (PROTONIX) TAB PO SCH ×2 (06:38→16:51)
--- NOTE | 2022-02-14 07:32 | Occupational Ther Daily Note ---
OT Current Status-Daily Note Subjective Pt alert, sitting EOB. Agrees to therapy. No c/o pain. Mental Status/Objective Patient Orientation: Person, Place, Time, Situation ADL-Treatment Pt independent with supine <--> EOB. Independent with eating. Pt ambulated to bathroom and transferred onto toilet without AD, independently. Independent with toileting. Sitting at sink, pt completes grooming and oral care independe ntly. Therapy Code Descriptions/Definitions Functional [place] Measure: 0=Not Assessed/NA 4=Minimal Assistance 1=Total Assistance 5=Supervision or Setup 2=Maximal Assistance 6=Modified [place] 3=Moderate Assistance 7=Complete IndependenceSCALE: Activities may be completed with or without assistive devices. 6-Xnfbzpwgev-sxxmzgw completes the activity by him/herself with no assistance from a helper. 5-Set-up or Clean-up Assistance-helper sets up or cleans up; patient completes activity. [place] assists only prior to or following the activity. 4-Supervision or Touching Assistance-helper provides verbal cues and/or touching/steadying and/or contact guard assistance as patient completes activity. Assistance may be provided throughout the activity or intermittently. 3-Partial/Moderate Assistance-helper does LESS THAN HALF the effort. [place] lifts, holds or supports trunk or limbs, but provides less than half the effort. 2-Substantial/Maximal Assistance-helper does MORE THAN HALF the effort. [place] lifts or holds trunk or limbs and provides more than half the effort. 9-Yknusujst-przcku does ALL the effort. Patient does none of the effort to complete the activity. Or, the assistance of 2 or more helpers is required for the patient to complete the activity. If activity was not attempted, code reason: 7-Patient Refused. 9-Not Applicable-not attempted and the patient did not perform the activity before the current illness, exacerbation or injury. 10-Not Attempted due to Environmental Limitations-(lack of equipment, weather restraints, etc.). 88-Not Attempted due to Medical Conditions or Safety Concerns. Eating (QC): 6 Oral Hygiene (QC): 6 On/Off Footwear: 5 Toileting Hygiene (QC): 6 Toilet Transfer (QC): 6 Other Treatment Pt ambulated using SPC to ambulate to therapy gym. Pt completed B UE AROM strengthening and stretching exercises to increase L UE ROM for daily functional tasks. Supine exercises using SPC for shldr flex/ext/abd/add, 1 set 20 reps. Pt seated at parallel bars with SPC resting on bars to slide SPC forward for stretch throughout B shldrs then pull back, 2 min. Vertical finger walks while standing 5x's. Wt bearing in standing by placing hands on table, 10 reps. Completed slowly due to possible dizziness from vestibular movement. After session, pt lying in bed with call light/phone in reach. All needs met in room. OT Short Term Goals Short Term Goals Time Frame: February 15, 2022 Eatin Oral hygiene: 5 Toileting hygiene: 3 Shower/bathe self: 3 Upper body dressin (mod) Lower body dressin (mod) Putting on/taking off footwear: 2 OT Medical Receptionist [place] Goals Nursing Home Goals Time Frame: Feb 23, 2022 Eating (QC): 5 Oral Hygiene (QC): 5 Toileting Hygiene (QC): 6 Shower/Bathe Self (QC): 5 Upper Body Dressing (QC): 3 (min) Lower Body Dressing (QC): 3 (min) On/Off Footwear (QC): 3 (mod) 1=Demonstrate adherence to instructed precautions during ADL tasks. 2=Patient will verbalize/demonstrate understanding of assistive devices/modifications for ADL. 3=Patient will improve strength/tolerance for activity to enable patient to perform ADL's. OT Education/Plan Discharge Recommendations Plan/Recommendations: Continue POC Treatment Plan/Plan of Care Patient would benefit from OT for education, treatment and training to promote independence in ADL's, mobility, safety and/or upper extremity function for ADL's. Plan of Care: ADL Retraining, Functional Mobility, Group Exercise/Act as Ind, UE Funct Exercise/Act, UE Neuromus Re-Ed/Coord, Visual/Perceptual Retrain Treatment Duration: Feb 23, 2022 Frequency: At least 5 of 7 days/Wk (IRF) Estimated Hrs Per Day: 1.5 hours per day (75-90 min/day ) Agreement: Yes Rehab Potential: Fair Time/GCodes Start Time: 07:15 Stop Time: 08:45 Total Time Billed (hr/min): 90 Billed Treatment Time 1 visit-ADL 3 (45 min) EX 2 (30 min) FA 1 (15 min) AAKASH HODGES February 14, 2022 07:32
[2022-02-14 07:36] VITALS: BP 120/83
[2022-02-14] MEDS: DICLOFENAC 1% GEL 100 GM (VOLTAREN) TUBE TOP SCH ×4 (09:00→19:17)
[2022-02-14] MEDS: SENNA W/DOCUSATE (SENOKOT S) TABLET PO SCH ×2 (09:00→19:20)
[2022-02-14] MEDS: polyethylene glycoL POWDER 17 GM (MIRALAX) PACK PO SCH ×2 (09:00→19:20)
[2022-02-14] MEDS: VITAMIN D3 25 MCG (1,000 UNITS) TABLET PO SCH (09:07)
[2022-02-14] MEDS: LACTOBACILLUS ACIDOPHILUS (PROBIOTIC) CAPSULE PO SCH (09:07)
[2022-02-14] MEDS: MIDODRINE 10 MG (PROAMATINE) TAB PO SCH ×3 (09:07→19:16)
[2022-02-14] MEDS: OMEGA 3 (FISH OIL) 1000 MG CAP PO SCH ×3 (09:07→16:57)
[2022-02-14] MEDS: FLUDROCORTISONE 0.1 MG (FLORINEF) TAB PO SCH (09:08)
[2022-02-14] MEDS: DOCUSATE SODIUM 100 MG (COLACE) CAP PO SCH ×2 (09:10→19:16)
--- NOTE | 2022-02-14 10:50 | Physical Therapy Daily Note ---
PT Daily Note-Current Subjective Patient in bed pre tx, agrees to PT, has no complaints of pain. Appearance Patient in bed post tx with nurse call, phone, tray, all needs met. Mental Status Patient Orientation: Person, Place, Situation Transfers SCALE: Activities may be completed with or without assistive devices. 8-Ikvqsivwfq-wlwamxx completes the activity by him/herself with no assistance from a helper. 5-Set-up or Clean-up Assistance-helper sets up or cleans up; patient completes activity. [place] assists only prior to or following the activity. 4-Supervision or Touching Assistance-helper provides verbal cues and/or touching/steadying and/or contact guard assistance as patient completes activity. Assistance may be provided throughout the activity or intermittently. 3-Partial/Moderate Assistance-helper does LESS THAN HALF the effort. [place] lifts, holds or supports trunk or limbs, but provides less than half the effort. 2-Substantial/Maximal Assistance-helper does MORE THAN HALF the effort. [place] lifts or holds trunk or limbs and provides more than half the effort. 0-Hngbyzgng-ifzztz does ALL the effort. Patient does none of the effort to complete the activity. Or, the assistance of 2 or more helpers is required for the patient to complete the activity. If activity was not attempted, code reason: 7-Patient Refused. 9-Not Applicable-not attempted and the patient did not perform the activity before the current illness, exacerbation or injury. 10-Not Attempted due to Environmental Limitations-(lack of equipment, weather restraints, etc.). 88-Not Attempted due to Medical Conditions or Safety Concerns. Roll Left & Right (QC): 6 Sit to Lying (QC): 6 Lying to Sitting/Side of Bed(Q: 6 Sit to Stand (QC): 6 Chair/Ivk-si-Cublh Xfer(QC): 4 Weight Bearing Full Weight Bearing Full Weight Bearing Gait Training Does the Patient Walk?: Yes Distance: 300'x3 Walk 10 feet (QC): 4 Walk 50 ft with 2 Turns(QC): 4 Walk 150 ft (QC): 4 Gait Persons Needed: 1 Gait Assistive Device: None Patient needed close SBA but didn't use a single point cane for ambulation, needed occasional cues for safety due to his left neglect, knee pain much better since his knee injection Exercises Supine Ex: Bridging, Ankle pumps, Quad Set, Glut sets, Heel Slides, Short Arc Quads (alternating for 5 min with 2# ankle weights), Straight leg raise, Hip abd/add Supine Reps: 20 Seated Therapy Exercises: Hip flexion, Hip abd/add (with ball and RTB) Seated Reps: 20 sit to stands 3 sets of 10 NuStep Minutes: 16 NuStep Workload: 5 Treatments bed mobility and transfers, ambulation, functional strengthening Assessment Current Status: Fair Progress improving endurance and distance of ambulation, less knee pain PT Short Term Goals Short Term Goals Time Frame: February 13, 2022 Roll Left & Right: 6 Sit to lyin Lying to sitting on side of be: 4 (SBA) Sit to stand: 4 (SBA) Chair/wdr-xx-etvpo transfer: 4 (SBA) Walk 10 feet: 4 (SBA) Walk 50 feet with two turns: 4 (SBA) Walk 150 feet: 4 (SBA) PT Snf Goals Snf Goals PT Living Manager Goals Time Frame: Feb 27, 2022 Roll Left & Right (QC): 6 Sit to Lying (QC): 6 Lying-Sitting on Side/Bed(QC): 6 Sit to Stand (QC): 5 Chair/Nbz-ym-Viewp Xfer(QC): 5 Toilet Transfer (QC): 5 Car Transfer (QC): 5 Does the Patient Walk: Yes Walk 10 feet (QC): 5 Walk 50ft with 2 Turns (QC): 5 Walk 150 ft (QC): 5 Walking 10ft on Uneven Surface: 5 1 Step (curb) (QC): 4 4 Steps (QC): 4 12 Steps (QC): 88 Picking up an Object (QC): 5 Wheel 50 feet with 2 turns (QC: 9 Wheel 150 feet: 9 PT Plan Problem List Problem List: Activity Tolerance, Functional Strength, Safety, Balance, Gait, Transfer, Bed Mobility, ROM Treatment/Plan Treatment Plan: Continue Plan of Care Treatment Plan: Bed Mobility, Education, Functional Activity Jose Carlos, Functional Strength, Group Therapy, Gait, Safety, Therapeutic Exercise, Transfers Treatment Duration: Feb 27, 2022 Frequency: At least 5 of 7 days/Wk (IRF) Estimated Hrs Per Day: 1.5 hours per day Patient and/or Family Agrees t: Yes Safety Risks/Education Patient Education: Gait Training, Transfer Techniques, Correct Positioning, Safety Issues Teaching Recipient: Patient Teaching Methods: Demonstration, Discussion Response to Teaching: Reinforcement Needed Time/GCodes Time In: 0930 Time Out: 1100 Total Billed Treatment Time: 90 Total Billed Treatment 1 visit EX 45' FA 45' FELIZ GRIMM PT February 14, 2022 10:50
[2022-02-14] MEDS: RIVAROXABAN 20 MG TABLET (XARELTO) PO SCH (16:46)
[2022-02-14] MEDS: [UNRECOGNIZED DRUG - REMARK] PO SCH (16:49)
[2022-02-14] MEDS: FAMOTIDINE 20 MG (PEPCID) TABLET PO SCH (19:16)
[2022-02-14 19:20] VITALS: BP 142/64
--- NOTE | 2022-02-15 06:09 | PM&R Progress Note ---
Subjective HPI/CC On Admission Date Seen by Provider: February 15, 2022 Time Seen by Provider: 11:00 Subjective/Events-last exam 02/15/22: Pt is doing really well Discharge planned for tomorrow Has an appt with Dr. Valencia, Dr. Escobar, and my clinic 02/14/2022: Pt is doing really well Discharge on Friday No falls Left knee improved with injection 02/13/2022: Pt is doing really well Having a loss of balance at times Pain meds were discussed Left knee injection will be performed by Dr. Dimas 02/12/22: Patient doing well Ultram and APAP # 3 ordered at his request Voiding well Wants left knee injected and Dr Dimas will do that tomorrow DC planning 02/11/2022: Patient doing well No pain reported Left knee doing better No falls Balance better Eating well 02/10/2022: Patient has no complaints No pain No dark stools Tolerating DOAC 02/09/2022: Patient doing well No pain reported Left knee evaluated by Dr Dimas and reviewed xrays Diclofenac gel will be maintained 02/08/22: Pt is doing really well Voiding well Bowels moved yesterday Supportive care will continue 02/07/22: Pt is moving around really well Bowels moved today and it was dark so I will order a hemoccult Heating pad will be placed on the shoulder We will discontinue the marino catheter if he has retention will consult Dr. Valencia, his urologist Review of Systems General: Fatigue, Malaise Objective Exam Vital Signs Vital Signs Date Time Temp Pulse Resp B/P (MAP) Pulse Ox O2 Delivery O2 Flow Rate FiO2 02/15/22 20:45 97 Room Air 02/15/22 20:04 37.2 72 16 145/78 (100) Capillary Refill : General Appearance: No Apparent Distress, WD/WN, Chronically ill HEENT: PERRL/EOMI, Normal ENT Inspection, Pharynx Normal Neck: Full Range of Motion, Normal Inspection, Non Tender, Supple, Carotid Bruit Respiratory: Chest Non Tender, Lungs Clear, Normal Breath Sounds, No Accessory Muscle Use, No Respiratory Distress Cardiovascular: Regular Rate, Rhythm, No Edema, No Gallop, No JVD, No Murmur, Normal Peripheral Pulses Gastrointestinal: Normal Bowel Sounds, No Organomegaly, No Pulsatile Mass, Non Tender, Soft Back: Normal Inspection, No CVA Tenderness, No Vertebral Tenderness Extremity: Normal Capillary Refill, Normal Inspection, Normal Range of Motion, Non Tender, No Calf Tenderness, No Pedal Edema Neurologic/Psychiatric: Alert, Oriented x3, operational risk manager II-XII Norm as Tested, Abnormal Gait, Depressed Affect, Motor Weakness (Generalized weakness) Skin: Normal Color, Warm/Dry Lymphatic: No Adenopathy Results/Procedures Lab Patient resulted labs reviewed. FIM Transfers Therapy Code Descriptions/Definitions Functional [place] Measure: 0=Not Assessed/NA 4=Minimal Assistance 1=Total Assistance 5=Supervision or Setup 2=Maximal Assistance 6=Modified [place] 3=Moderate Assistance 7=Complete IndependenceSCALE: Activities may be completed with or without assistive devices. 5-Rbngltaros-bnerzzp completes the activity by him/herself with no assistance from a helper. 5-Set-up or Clean-up Assistance-helper sets up or cleans up; patient completes activity. [place] assists only prior to or following the activity. 4-Supervision or Touching Assistance-helper provides verbal cues and/or touching/steadying and/or contact guard assistance as patient completes activity. Assistance may be provided throughout the activity or intermittently. 3-Partial/Moderate Assistance-helper does LESS THAN HALF the effort. [place] lifts, holds or supports trunk or limbs, but provides less than half the effort. 2-Substantial/Maximal Assistance-helper does MORE THAN HALF the effort. [place] lifts or holds trunk or limbs and provides more than half the effort. 2-Lnemcylgz-gbmuow does ALL the effort. Patient does none of the effort to complete the activity. Or, the assistance of 2 or more helpers is required for the patient to complete the activity. If activity was not attempted, code reason: 7-Patient Refused. 9-Not Applicable-not attempted and the patient did not perform the activity before the current illness, exacerbation or injury. 10-Not Attempted due to Environmental Limitations-(lack of equipment, weather restraints, etc.). 88-Not Attempted due to Medical Conditions or Safety Concerns. Roll Left to Right (QC): 6 Sit to Lying (QC): 6 Sit to Stand (QC): 6 Chair/Pou-ih-Ngehd Xfer(QC): 4 Car Transfer (QC): 4 Gait Training Does the Patient Walk?: Yes Distance: 300'x3 Walk 10 feet (QC): 4 Walk 50 ft with 2 Turns(QC): 4 Walk 150 ft (QC): 4 Walking 10ft/uneven surface-QC: 4 Gait Persons Needed: 1 Gait Assistive Device: None Wheelchair Training Does the Pt Use a Wheelchair?: No Wheel 50 ft with 2 turns (QC): 9 Wheel 150 ft (QC): 9 Stair Training #of Steps: 1 1 Step (curb) (QC): 4 4 Steps (QC): 88 12 Steps (QC): 88 Balance Picking up an Object (QC): 4 (with bioprocessing manufacturing technician) ADL-Treatment Eating (QC): 6 Oral Hygiene (QC): 6 Shower/Bathe Self (QC): 4 Upper Body Dressing (QC): 4 Lower Body Dressing (QC): 3 On/Off Footwear (QC): 5 Toileting Hygiene (QC): 6 Toilet Transfer (QC): 6 Assessment/Plan Assessment and Plan Assess & Plan/Chief Complaint Assessment: Subacute stroke suspect embolic in nature on MRI with left-sided weakness Isolated seizure Suspected aspiration pneumonia placed on antibiotics empirically 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 maintained on midodrine Previous stroke with left-sided weakness sustained during carotid endarterectomy CAD previous stents Hypertension Hyperlipidemia Prostate cancer undergoing Lupron and radiation seeds Carotid stenosis status post carotid endarterectomy Urinary frequency chronic GERD Previous UTI Poor nutrition Plan: Inpatient rehab Cardiology consult Supportive retirement meds PT and OT 02/07/2022: DC catheter Heating pad to shoulder Anticoagulation per Dr. Escobar 02/08: Monitor closely Doing well 02/09: Monitor closely Dr Dimas appreciated 02/10/2022: Monitor progress Intense rehab 02/11/2022: Monitor closely Improved 02/12/22: Monitor closely Left knee injection 02/13/2022: Supportive care Discharge 02/17/2022 02/14/2022: Discharge 02/17/2022 02/15/2022: Supportive care Discharge home tomorrow Maintain Xarelto no longer on aspirin or Plavix (1) Paroxysmal atrial fibrillation Assessment & Plan: When he was in the intensive care unit his telemetry showed some brief episodes of irregular atrial rhythm that may have been short bursts of paroxysmal atrial fibrillation. In light of the new stroke in 2 different territories, this is certainly concerning for an embolic stroke due to atrial fibrillation. I changed his aspirin over to rivaroxaban. He should continue on high-dose statin medication. We will continue to monitor his implantable loop recorder via his remote monitor which he has in his room. If he needs to have an invasive procedure, he should stop his regular rocks abandoned the day before the procedure and resume this as soon as possible following the procedure. There is no indication for bridging with heparin or enoxaparin. (2) Acute cerebrovascular accident Assessment & Plan: As above, this may have been due to atrial fibrillation. Although we did not see any atrial fibrillation on his implantable loop recorder prior to admission, due to possible atrial fibrillation seen during this hospitalization, his aspirin was changed to rivaroxaban. He does not appear to have any major new neurologic deficits with his most recent stroke. He will continue with physical therapy on the inpatient rehabilitation unit for physical therapy and occupational therapy. (3) Mixed hyperlipidemia Assessment & Plan: Continue high-dose statin medication. (4) Orthostatic hypotension Status: Acute Assessment & Plan: He has had problems with severe orthostasis in the past. Continue midodrine and fludrocortisone. He had been prescribed Flomax which may have caused a dip in his blood pressure and this has been changed to Rapaflo. (5) Primary hypertension Assessment & Plan: He had a previous history of hypertension but then developed orthostasis and all of his antihypertensive medication was discontinued. (6) Seizure Status: Acute Assessment & Plan: He had a seizure in the emergency room but no evidence of recurrence. This may have been related to the acute cerebrovascular accident. GUILLERMO CABELLO DO February 15, 2022 06:09
[2022-02-15] MEDS: PANTOPRAZOLE 40 MG (PROTONIX) TAB PO SCH ×2 (06:20→15:03)
[2022-02-15 07:08] VITALS: BP 138/73
[2022-02-15] MEDS: DOCUSATE SODIUM 100 MG (COLACE) CAP PO SCH ×2 (07:48→20:38)
[2022-02-15] MEDS: LACTOBACILLUS ACIDOPHILUS (PROBIOTIC) CAPSULE PO SCH (07:48)
[2022-02-15] MEDS: VITAMIN D3 25 MCG (1,000 UNITS) TABLET PO SCH (07:49)
[2022-02-15] MEDS: FLUDROCORTISONE 0.1 MG (FLORINEF) TAB PO SCH (07:49)
[2022-02-15] MEDS: OMEGA 3 (FISH OIL) 1000 MG CAP PO SCH ×3 (07:49→17:11)
[2022-02-15] MEDS: SENNA W/DOCUSATE (SENOKOT S) TABLET PO SCH ×2 (07:49→20:42)
[2022-02-15] MEDS: MIDODRINE 10 MG (PROAMATINE) TAB PO SCH ×3 (07:49→20:38)
[2022-02-15] MEDS: polyethylene glycoL POWDER 17 GM (MIRALAX) PACK PO SCH ×2 (08:01→20:42)
[2022-02-15] MEDS: DICLOFENAC 1% GEL 100 GM (VOLTAREN) TUBE TOP SCH ×4 (08:02→20:40)
--- NOTE | 2022-02-15 08:55 | Physical Therapy Daily Note ---
PT Daily Note-Current Subjective Pt. states he doesnt always use his cane and feels safe. No c/o pain and states he is so pleased that the injection in his left knee was successful." I'm 10 times better than when I came in here" Pain Location: No Pain Reported Mental Status Patient Orientation: Normal For Age Transfers SCALE: Activities may be completed with or without assistive devices. 5-Dkpkwzifsp-ezkpndv completes the activity by him/herself with no assistance from a helper. 5-Set-up or Clean-up Assistance-helper sets up or cleans up; patient completes activity. [place] assists only prior to or following the activity. 4-Supervision or Touching Assistance-helper provides verbal cues and/or touching/steadying and/or contact guard assistance as patient completes activity. Assistance may be provided throughout the activity or intermittently. 3-Partial/Moderate Assistance-helper does LESS THAN HALF the effort. [place] lifts, holds or supports trunk or limbs, but provides less than half the effort. 2-Substantial/Maximal Assistance-helper does MORE THAN HALF the effort. [place] lifts or holds trunk or limbs and provides more than half the effort. 8-Pwvlhrtxl-salmij does ALL the effort. Patient does none of the effort to complete the activity. Or, the assistance of 2 or more helpers is required for the patient to complete the activity. If activity was not attempted, code reason: 7-Patient Refused. 9-Not Applicable-not attempted and the patient did not perform the activity before the current illness, exacerbation or injury. 10-Not Attempted due to Environmental Limitations-(lack of equipment, weather restraints, etc.). 88-Not Attempted due to Medical Conditions or Safety Concerns. Roll Left & Right (QC): 6 Sit to Lying (QC): 6 Lying to Sitting/Side of Bed(Q: 6 Sit to Stand (QC): 6 Chair/Nsl-pv-Pzaxp Xfer(QC): 6 Toilet Transfer (QC): 6 Car Transfer (QC): 6 Weight Bearing Full Weight Bearing Full Weight Bearing Gait Training Does the Patient Walk?: Yes Walk 10 feet (QC): 6 Walk 50 ft with 2 Turns(QC): 6 Walk 150 ft (QC): 6 Walking 10ft/uneven surface-QC: 4 Gait Persons Needed: 1 Gait Assistive Device: Cane Single Point pt. ambulated 100 ft with SPC and 100 ft without, holding cane in his right hand, no LOB, works hard at even step length, safe habits Stair Training Stair Training: Handrails/: 1 handrail #of Steps: 12 1 Step (curb) (QC): 4 4 Steps (QC): 4 12 Steps (QC): 4 Stairs: Pattern: Step to Balance Picking up an Object (QC): 4 Exercises Supine Ex: Bridging, Ankle pumps, Quad Set, Rolling, Glut sets, Heel Slides, Short Arc Quads, Scooting, Straight leg raise, Hip abd/add Supine Reps: 15 NuStep Minutes: 10 NuStep Workload: 5 Assessment Current Status: Good Progress meets goals PT Short Term Goals Short Term Goals Time Frame: February 13, 2022 Roll Left & Right: 6 Sit to lyin Lying to sitting on side of be: 4 (SBA) Sit to stand: 4 (SBA) Chair/jcl-nh-nwavp transfer: 4 (SBA) Walk 10 feet: 4 (SBA) Walk 50 feet with two turns: 4 (SBA) Walk 150 feet: 4 (SBA) PT Snf Goals Research Development Manager Goals PT Research Development Manager Goals Time Frame: Feb 27, 2022 Roll Left & Right (QC): 6 Sit to Lying (QC): 6 Lying-Sitting on Side/Bed(QC): 6 Sit to Stand (QC): 5 Chair/Vht-ox-Jkehe Xfer(QC): 5 Toilet Transfer (QC): 5 Car Transfer (QC): 5 Does the Patient Walk: Yes Walk 10 feet (QC): 5 Walk 50ft with 2 Turns (QC): 5 Walk 150 ft (QC): 5 Walking 10ft on Uneven Surface: 5 1 Step (curb) (QC): 4 4 Steps (QC): 4 12 Steps (QC): 88 Picking up an Object (QC): 5 Wheel 50 feet with 2 turns (QC: 9 Wheel 150 feet: 9 PT Plan Treatment/Plan Treatment Plan: Continue Plan of Care Treatment Plan: Bed Mobility, Education, Functional Activity Jose Carlos, Functional Strength, Group Therapy, Gait, Safety, Therapeutic Exercise, Transfers Treatment Duration: Feb 27, 2022 Frequency: At least 5 of 7 days/Wk (IRF) Estimated Hrs Per Day: 1.5 hours per day Patient and/or Family Agrees t: Yes Safety Risks/Education Patient Education: Gait Training, Transfer Techniques, Steps, Correct Positioning, Safety Issues Teaching Recipient: Health Care Proxy Teaching Methods: Discussion Response to Teaching: Return Demonstration, Reinforcement Needed Time/GCodes Time In: 800 Time Out: 900 Total Billed Treatment Time: 60 Total Billed Treatment 1,EX15m,GT15m,FA30m MIKE MCKNIGHT PACKAGING MECHANIC February 15, 2022 08:55
--- NOTE | 2022-02-15 10:30 | Occupational Ther Daily Note ---
OT Current Status-Daily Note Subjective Pt denies pain, agreeable to shower. Appearance Pt left sitting EOB, all needs within reach. Mental Status/Objective Patient Orientation: Person, Place, Situation ADL-Treatment Therapy Code Descriptions/Definitions Functional [place] Measure: 0=Not Assessed/NA 4=Minimal Assistance 1=Total Assistance 5=Supervision or Setup 2=Maximal Assistance 6=Modified [place] 3=Moderate Assistance 7=Complete IndependenceSCALE: Activities may be completed with or without assistive devices. 2-Mjkprqtzfp-salmwsc completes the activity by him/herself with no assistance from a helper. 5-Set-up or Clean-up Assistance-helper sets up or cleans up; patient completes activity. [place] assists only prior to or following the activity. 4-Supervision or Touching Assistance-helper provides verbal cues and/or touching/steadying and/or contact guard assistance as patient completes activity. Assistance may be provided throughout the activity or intermittently. 3-Partial/Moderate Assistance-helper does LESS THAN HALF the effort. [place] lifts, holds or supports trunk or limbs, but provides less than half the effort. 2-Substantial/Maximal Assistance-helper does MORE THAN HALF the effort. [place] lifts or holds trunk or limbs and provides more than half the effort. 8-Fyoixmpzq-byycwr does ALL the effort. Patient does none of the effort to complete the activity. Or, the assistance of 2 or more helpers is required for the patient to complete the activity. If activity was not attempted, code reason: 7-Patient Refused. 9-Not Applicable-not attempted and the patient did not perform the activity before the current illness, exacerbation or injury. 10-Not Attempted due to Environmental Limitations-(lack of equipment, weather restraints, etc.). 88-Not Attempted due to Medical Conditions or Safety Concerns. Eating (QC): 5 Oral Hygiene (QC): 6 Shower/Bathe Self (QC): 6 Upper Body Dressing (QC): 4 Lower Body Dressing (QC): 4 On/Off Footwear: 5 Toileting Hygiene (QC): 6 Toilet Transfer (QC): 6 Shower performed; majority completing in sitting. No lob or unsteadiness observed when standing to wash patrick area/buttocks. OT provided pt with LHS after he provided multiple statements that he uses a LHS at home for improved ease when washing LB. With AE, pt did not require any assistance to wash feet. Clothing donned seated at EOB. Extra time and min verbal cues for fabiano technique when donning shirt, but no physical assistance required. Pt was able to thread BLE's into underwear/shorts however required multiple attempts secondary to placing RLE into incorrect leg opening several times. He was able to identify problem and re-attempt without cues. Significant time and cues to incorporate LUE into task when pulling clothing up to waist. He donned slip on shoes with se t up only. Other Treatment Pt ambulated to/from therapy gym with supervision, no AD. While supine, he perf ormed BUE AROM strengthening and stretching exercises to increase L UE ROM for daily functional tasks. Exercises using SPC for shldr flex/ext/abd/add, 1 set 15 reps. Isometric exercises 5x5 sec each including: elbow flexion/extension, external/internal rotation, shoulder extension. While sidelying, OT facilitated scapula mobilizations including elevation/depression, protraction/retraction to aid in increasing shoulder AROM. Education OT Patient Education: Correct positioning, Exercise program Teaching Recipient: Patient Teaching Methods: Demonstration, Discussion Response to Teaching: Verbalize Understanding, Return Demonstration, Reinforcement Needed OT Short Term Goals Short Term Goals Time Frame: February 15, 2022 Eatin Oral hygiene: 5 Toileting hygiene: 3 Shower/bathe self: 3 Upper body dressin (mod) Lower body dressin (mod) Putting on/taking off footwear: 2 OT Half-Way Goals Half-Way Goals Time Frame: Feb 23, 2022 Eating (QC): 5 (met) Oral Hygiene (QC): 5 (met) Toileting Hygiene (QC): 6 (met) Shower/Bathe Self (QC): 5 (met) Upper Body Dressing (QC): 3 (met) Lower Body Dressing (QC): 3 (met) On/Off Footwear (QC): 3 (met) 1=Demonstrate adherence to instructed precautions during ADL tasks. 2=Patient will verbalize/demonstrate understanding of assistive devices /modifications for ADL. 3=Patient will improve strength/tolerance for activity to enable patient to perform ADL's. OT Education/Plan Problem List/Assessment Assessment: Decreased Activ Tolerance, Decreased UE Strength, Impaired Coordination, Impaired Self-Care Skills, Restricted Funct UE ROM Discharge Recommendations Plan/Recommendations: Continue POC Therapy Discharge Recommendati: Home & Family, Post Acute OT (home health OT) Treatment Plan/Plan of Care Treatment,Training & Education: Yes Patient would benefit from OT for education, treatment and training to promote independence in ADL's, mobility, safety and/or upper extremity function for ADL's. Plan of Care: ADL Retraining, Functional Mobility, Group Exercise/Act as Ind, UE Funct Exercise/Act, UE Neuromus Re-Ed/Coord, Visual/Perceptual Retrain Treatment Duration: Feb 23, 2022 Frequency: At least 5 of 7 days/Wk (IRF) Estimated Hrs Per Day: 1.5 hours per day (75-90 min/day ) Agreement: Yes Rehab Potential: Fair Time/GCodes Start Time: 09:00 Stop Time: 10:30 Total Time Billed (hr/min): 90 Billed Treatment Time 1 visit ADL x3 (45 min) EX x3 (45 min) Susi Quach OT February 15, 2022 10:30
--- NOTE | 2022-02-15 11:14 | Physical Therapy Daily Note ---
PT Daily Note-Current Subjective Pt. agrees to Rx, explains his situation at home and feels he has a great set up for he ad his Pain Location: No Pain Reported Mental Status Patient Orientation: Normal For Age Transfers SCALE: Activities may be completed with or without assistive devices. 5-Efbiybnvmg-drzfjrf completes the activity by him/herself with no assistance from a helper. 5-Set-up or Clean-up Assistance-helper sets up or cleans up; patient completes activity. [place] assists only prior to or following the activity. 4-Supervision or Touching Assistance-helper provides verbal cues and/or touching /steadying and/or contact guard assistance as patient completes activity. Assistance may be provided throughout the activity or intermittently. 3-Partial/Moderate Assistance-helper does LESS THAN HALF the effort. [place] lifts, holds or supports trunk or limbs, but provides less than half the effort. 2-Substantial/Maximal Assistance-helper does MORE THAN HALF the effort. [place] lifts or holds trunk or limbs and provides more than half the effort. 6-Vvhyjcjqr-wleygx does ALL the effort. Patient does none of the effort to complete the activity. Or, the assistance of 2 or more helpers is required for the patient to complete the activity. If activity was not attempted, code reason: 7-Patient Refused. 9-Not Applicable-not attempted and the patient did not perform the activity before the current illness, exacerbation or injury. 10-Not Attempted due to Environmental Limitations-(lack of equipment, weather restraints, etc.). 88-Not Attempted due to Medical Conditions or Safety Concerns. all TRFs MOD I in out bed ,chair and toilet Weight Bearing Full Weight Bearing Full Weight Bearing Exercises Supine Ex: Bridging, Ankle pumps, Quad Set, Rolling, Glut sets, Heel Slides, Short Arc Quads, Scooting, Straight leg raise, Hip abd/add Supine Reps: 20 Treatments TRFs, LE ex, education and review of safety at home Assessment Current Status: Good Progress PT Short Term Goals Short Term Goals Time Frame: February 13, 2022 Roll Left & Right: 6 Sit to lyin Lying to sitting on side of be: 4 (SBA) Sit to stand: 4 (SBA) Chair/cab-ct-sdxun transfer: 4 (SBA) Walk 10 feet: 4 (SBA) Walk 50 feet with two turns: 4 (SBA) Walk 150 feet: 4 (SBA) PT Claim Professional Goals Claim Professional Goals PT Claim Professional Goals Time Frame: Feb 27, 2022 Roll Left & Right (QC): 6 Sit to Lying (QC): 6 Lying-Sitting on Side/Bed(QC): 6 Sit to Stand (QC): 5 Chair/Uxd-tx-Sqpjv Xfer(QC): 5 Toilet Transfer (QC): 5 Car Transfer (QC): 5 Does the Patient Walk: Yes Walk 10 feet (QC): 5 Walk 50ft with 2 Turns (QC): 5 Walk 150 ft (QC): 5 Walking 10ft on Uneven Surface: 5 1 Step (curb) (QC): 4 4 Steps (QC): 4 12 Steps (QC): 88 Picking up an Object (QC): 5 Wheel 50 feet with 2 turns (QC: 9 Wheel 150 feet: 9 PT Plan Treatment/Plan Treatment Plan: Continue Plan of Care Treatment Plan: Bed Mobility, Education, Functional Activity Jose Carlos, Functional Strength, Group Therapy, Gait, Safety, Therapeutic Exercise, Transfers Treatment Duration: Feb 27, 2022 Frequency: At least 5 of 7 days/Wk (IRF) Estimated Hrs Per Day: 1.5 hours per day Patient and/or Family Agrees t: Yes Safety Risks/Education Patient Education: Safety Issues Teaching Recipient: Patient Teaching Methods: Discussion Response to Teaching: Reinforcement Needed Time/GCodes Time In: 1045 Time Out: 1115 Total Billed Treatment Time: 30 Total Billed Treatment 1,FA10m,EX20m MIKE MCKNIGHT SECURITY RISK ANALYST February 15, 2022 11:14
[2022-02-15] MEDS ORDERED: RIVA20TA2 PO (12:24)
[2022-02-15] MEDS: RIVAROXABAN 20 MG TABLET (XARELTO) PO SCH (17:11)
[2022-02-15] MEDS: [UNRECOGNIZED DRUG - REMARK] PO SCH (17:59)
[2022-02-15 20:04] VITALS: BP 145/78
[2022-02-15] MEDS: FAMOTIDINE 20 MG (PEPCID) TABLET PO SCH (20:38)
[2022-02-16] MEDS: PANTOPRAZOLE 40 MG (PROTONIX) TAB PO SCH (06:35)
--- NOTE | 2022-02-16 06:44 | Discharge Summary ---
Diagnosis/Chief Complaint Date of Admission February 06, 2022 at 11:27 Date of Discharge Discharge Date: February 16, 2022 Discharge Diagnosis Assessment: Subacute stroke suspect embolic in nature on MRI with left-sided weakness Isolated seizure Suspected aspiration pneumonia placed on antibiotics empirically 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 maintained on midodrine Previous stroke with left-sided weakness sustained during carotid endarterectomy CAD previous stents Hypertension Hyperlipidemia Prostate cancer undergoing Lupron and radiation seeds Carotid stenosis status post carotid endarterectomy Urinary frequency chronic GERD Previous UTI Poor nutrition Plan: Inpatient rehab Cardiology consult Supportive [facility] meds PT and OT 02/07/2022: DC catheter Heating pad to shoulder Anticoagulation per Dr. Escobar 02/08: Monitor closely Doing well 02/09: Monitor closely Dr Dimas appreciated 02/10/2022: Monitor progress Intense rehab 02/11/2022: Monitor closely Improved 02/12/22: Monitor closely Left knee injection 02/13/2022: Supportive care Discharge 02/17/2022 02/14/2022: Discharge 02/17/2022 02/15/2022: Supportive care Discharge home tomorrow Maintain Xarelto no longer on aspirin or Plavix (1) Paroxysmal atrial fibrillation Assessment & Plan: When he was in the intensive care unit his telemetry showed some brief episodes of irregular atrial rhythm that may have been short bursts of paroxysmal atrial fibrillation. In light of the new stroke in 2 different territories, this is certainly concerning for an embolic stroke due to atrial fibrillation. I changed his aspirin over to rivaroxaban. He should continue on high-dose statin medication. We will continue to monitor his implantable loop recorder via his remote monitor which he has in his room. If he needs to have an invasive procedure, he should stop his regular rocks abandoned the day before the procedure and resume this as soon as possible following the procedure. There is no indication for bridging with heparin or enoxaparin. (2) Acute cerebrovascular accident Assessment & Plan: As above, this may have been due to atrial fibrillation. Although we did not see any atrial fibrillation on his implantable loop recorder prior to admission, due to possible atrial fibrillation seen during this hospitalization, his aspirin was changed to rivaroxaban. He does not appear to have any major new neurologic deficits with his most recent stroke. He will continue with physical therapy on the inpatient rehabilitation unit for physical therapy and occupational therapy. (3) Mixed hyperlipidemia Assessment & Plan: Continue high-dose statin medication. (4) Orthostatic hypotension Status: Acute Assessment & Plan: He has had problems with severe orthostasis in the past. Continue midodrine and fludrocortisone. He had been prescribed Flomax which may have caused a dip in his blood pressure and this has been changed to Rapaflo. (5) Primary hypertension Assessment & Plan: He had a previous history of hypertension but then developed orthostasis and all of his antihypertensive medication was discontinued. (6) Seizure Status: Acute Assessment & Plan: He had a seizure in the emergency room but no evidence of recurrence. This may have been related to the acute cerebrovascular accident. GUILLERMO CABELLO DO February 15, 2022 06:09 Discharge Summary Discharge Physical Examination Allergies: Coded Allergies: aloe vera (Verified Allergy, Unknown, RASH, 01/30/22) cephalexin (Verified Allergy, Unknown, FACE THROAT SWELLING, 01/30/22) influenza virus vaccine ts [id number] (36 mos,up) (Verified Allergy, Unknown, TERRIBLE REACTION, 01/30/22) Vitals & I&Os Vital Signs Date Time Temp Pulse Resp B/P (MAP) Pulse Ox O2 Delivery O2 Flow Rate FiO2 02/16/22 08:15 Room Air 02/16/22 07:01 36.4 65 18 147/74 (98) 98 General Appearance: Alert, Oriented X3, Cooperative Respiratory: Clear to Auscultation Cardiovascular: Regular Rate Neuro: Normal Gait, Normal Speech Psych/Mental Status: Mental Status NL Hospital Course Was the Problem List Reviewed?: Yes Pt had an uneventful hospital course for 10 days after he was admitted for CVA embolic type from afib. Pt was placed on Xarelto. He overall did very well. Participated in all therapy. He was back to baseline. He was discharged in improved condition. Labs (last 24 hrs) Laboratory Tests 02/07/22 05:56: White Blood Count 7.4, Red Blood Count 3.47L, Hemoglobin 10.0L, Hematocrit 31L, Mean Corpuscular Volume 88, Mean Corpuscular Hemoglobin 29, Mean Corpuscular Hemoglobin Concent 33, Red Cell Distribution Width 15.0H, Platelet Count 167, Mean Platelet Volume 9.9, Immature Granulocyte % (Auto) 0, Neutrophils (%) (Auto) 66, Lymphocytes (%) (Auto) 21, Monocytes (%) (Auto) 8, Eosinophils (%) (Auto) 5, Basophils (%) (Auto) 1, Neutrophils # (Auto) 4.9, Lymphocytes # (Auto) 1.5, Monocytes # (Auto) 0.6, Eosinophils # (Auto) 0.4H, Basophils # (Auto) 0.1, Immature Granulocyte # (Auto) 0.0, Sodium Level 143, Potassium Level 3.6, Chloride Level 107, Carbon Dioxide Level 28, Anion Gap 8, Blood Urea Nitrogen 12, Creatinine 0.69, Estimat Glomerular Filtration Rate 92, BUN/Creatinine Ratio 17, Glucose Level 110H, Calcium Level 8.6, Corrected Calcium 9.3, Total Bilirubin 0.5, Aspartate Amino Transf (AST/SGOT) 20, Alanine Aminotransferase (ALT/SGPT) 19, Alkaline Phosphatase 58, Total Protein 5.7L, Albumin 3.1L 02/07/22 15:00: Stool Occult Blood Immunoassay NEGATIVE 02/11/22 07:30: White Blood Count 5.8, Red Blood Count 3.82L, Hemoglobin 10.8L, Hematocrit 34L, Mean Corpuscular Volume 90, Mean Corpuscular Hemoglobin 28, Mean Corpuscular Hemoglobin Concent 32, Red Cell Distribution Width 14.8H, Platelet Count 242, Mean Platelet Volume 9.9, Immature Granulocyte % (Auto) 1, Neutrophils (%) (Auto) 56, Lymphocytes (%) (Auto) 27, Monocytes (%) (Auto) 10, Eosinophils (%) (Auto) 6, Basophils (%) (Auto) 1, Neutrophils # (Auto) 3.3, Lymphocytes # (Auto) 1.6, Monocytes # (Auto) 0.6, Eosinophils # (Auto) 0.3, Basophils # (Auto) 0.1, Immature Granulocyte # (Auto) 0.0, Sodium Level 143, Potassium Level 4.0, Chloride Level 103, Carbon Dioxide Level 29, Anion Gap 11, Blood Urea Nitrogen 13, Creatinine 0.92, Estimat Glomerular Filtration Rate 83, BUN/Creatinine Ratio 14, Glucose Level 149H, Calcium Level 9.0, Corrected Calcium 9.5, Total Bilirubin 0.4, Aspartate Amino Transf (AST/SGOT) 23, Alanine Aminotransferase (ALT/SGPT) 18, Alkaline Phosphatase 69, Total Protein 6.3L, Albumin 3.4 Pending Labs Laboratory Tests 02/07/22 05:56: White Blood Count 7.4, Red Blood Count 3.47, Hemoglobin 10.0, Hematocrit 31, Mean Corpuscular Volume 88, Mean Corpuscular Hemoglobin 29, Mean Corpuscular Hemoglobin Concent 33, Red Cell Distribution Width 15.0, Platelet Count 167, Mean Platelet Volume 9.9, Immature Granulocyte % (Auto) 0, Neutrophils (%) (Auto) 66, Lymphocytes (%) (Auto) 21, Monocytes (%) (Auto) 8, Eosinophils (%) (Auto) 5, Basophils (%) (Auto) 1, Neutrophils # (Auto) 4.9, Lymphocytes # (Auto) 1.5, Monocytes # (Auto) 0.6, Eosinophils # (Auto) 0.4, Basophils # (Auto) 0.1, Immature Granulocyte # (Auto) 0.0, Sodium Level 143, Potassium Level 3.6, Chloride Level 107, Carbon Dioxide Level 28, Anion Gap 8, Blood Urea Nitrogen 12, Creatinine 0.69, Estimat Glomerular Filtration Rate 92, BUN/Creatinine Ratio 17, Glucose Level 110, Calcium Level 8.6, Corrected Calcium 9.3, Total Bilirubin 0.5, Aspartate Amino Transf (AST/SGOT) 20, Alanine Aminotransferase (ALT/SGPT) 19, Alkaline Phosphatase 58, Total Protein 5.7, Albumin 3.1 02/07/22 15:00: Stool Occult Blood Immunoassay NEGATIVE 02/11/22 07:30: White Blood Count 5.8, Red Blood Count 3.82, Hemoglobin 10.8, Hematocrit 34, Mean Corpuscular Volume 90, Mean Corpuscular Hemoglobin 28, Mean Corpuscular Hemoglobin Concent 32, Red Cell Distribution Width 14.8, Platelet Count 242, Mean Platelet Volume 9.9, Immature Granulocyte % (Auto) 1, Neutrophils (%) (Auto) 56, Lymphocytes (%) (Auto) 27, Monocytes (%) (Auto) 10, Eosinophils (%) (Auto) 6, Basophils (%) (Auto) 1, Neutrophils # (Auto) 3.3, Lymphocytes # (Auto) 1.6, Monocytes # (Auto) 0.6, Eosinophils # (Auto) 0.3, Basophils # (Auto) 0.1, Immature Granulocyte # (Auto) 0.0, Sodium Level 143, Potassium Level 4.0, Chloride Level 103, Carbon Dioxide Level 29, Anion Gap 11, Blood Urea Nitrogen 13, Creatinine 0.92, Estimat Glomerular Filtration Rate 83, BUN/Creatinine Ratio 14, Glucose Level 149, Calcium Level 9.0, Corrected Calcium 9.5, Total Bilirubin 0.4, Aspartate Amino Transf (AST/SGOT) 23, Alanine Aminotransferase (ALT/SGPT) 18, Alkaline Phosphatase 69, Total Protein 6.3, Albumin 3.4 Discharge Home Medications: Active Scripts Active Xarelto Tablet (Rivaroxaban) 20 Mg Tablet 20 Mg PO DAILY@1700 Reported Fludrocortisone Acetate 0.1 Mg Tab 0.1 Mg PO DAILY Megared Adv 6X Abs 800 mg Sfgl ([place]-3/Dha/Epa/Fish Oil) 476 Mg-800 Mg Capsule 1 Each PO DAILY Tylenol (Acetaminophen) 325 Mg Tablet 650 Mg PO Q6H PRN Senna-S Tablet (Sennosides/Docusate Sodium) 8.6 Mg-50 Mg Tablet 1 Each PO BID PRN Silodosin 8 Mg Capsule 8 Mg PO 1800 Midodrine HCl 5 Mg Tablet 5 Mg PO 0900,1500,2100 Vitamin D3 (Cholecalciferol (Vitamin D3)) 50 Mcg (2000 Unit) Tablet 50 Mcg PO DAILY Probiotic (Lactobacillus Acidophilus) 10 Billion Cell Capsule 1 Each PO DAILY Diclofenac Sodium 100 Gm Gel..gram. 1 Applic TP QID PRN APPLY TO AFFECTED KNEES Pantoprazole Sodium 40 Mg Tablet.dr 40 Mg PO BIDAC Atorvastatin Calcium 80 Mg Tablet 80 Mg PO HS Acid Vending Machine Filler (FAMOTIDINE) (Famotidine) 20 Mg Tablet 20 Mg PO HS Instructions to patient/family Please see electronic discharge instructions given to patient. Diagnosis/Problems Diagnosis/Problems (1) Acute cerebrovascular accident (2) Recurrent syncope Status: Acute (3) Hemiparesis affecting left side as late effect of cerebrovascular accident Status: Acute (4) Fall at home (5) Primary hypertension (6) Seizure Status: Acute (7) Mixed hyperlipidemia (8) Orthostatic hypotension Status: Acute (9) Prostate cancer Status: Acute (10) Aspiration precautions Status: Acute GUILLERMO CABELLO DO February 16, 2022 06:44
[2022-02-16 07:01] VITALS: BP 147/74
[2022-02-16] MEDS: OMEGA 3 (FISH OIL) 1000 MG CAP PO SCH ×2 (08:05→12:29)
[2022-02-16] MEDS: FLUDROCORTISONE 0.1 MG (FLORINEF) TAB PO SCH (08:05)
[2022-02-16] MEDS: MIDODRINE 10 MG (PROAMATINE) TAB PO SCH (08:05)
[2022-02-16] MEDS: VITAMIN D3 25 MCG (1,000 UNITS) TABLET PO SCH (08:05)
[2022-02-16] MEDS: LACTOBACILLUS ACIDOPHILUS (PROBIOTIC) CAPSULE PO SCH (08:05)
[2022-02-16] MEDS: DICLOFENAC 1% GEL 100 GM (VOLTAREN) TUBE TOP SCH ×2 (08:10→12:29)
[2022-02-16] MEDS: DOCUSATE SODIUM 100 MG (COLACE) CAP PO SCH (08:10)
[2022-02-16] MEDS: polyethylene glycoL POWDER 17 GM (MIRALAX) PACK PO SCH (08:11)
[2022-02-16] MEDS: SENNA W/DOCUSATE (SENOKOT S) TABLET PO SCH (08:11)
[2022-02-16] MEDS: RIVAROXABAN 20 MG TABLET (XARELTO) PO SCH (12:58)
--- NOTE | 2022-02-18 10:03 | Therapy Team Discharge Summary ---
Therapy Discharge Summary Discharge Recommendations Date of Discharge February 16, 2022 at 13:10 Physical Therapy Patient admitted to rehab post CVA. Upon evaluation patient performs rolling with independence, supine <-> sit min assist, sit <-> stand and transfers CGA, car transfer CGA, ambulate 120' with a single point cane with CGA (including 50' with at least 2 turns of 90 degrees and 10' over an uneven surface), can go up and down 1 step using a single point cane with CGA, and can brain picker an object from the floor with CGA using a traffic operations manager. Patient has been performing bed mobility and transfer training, balance and endurance training, functional strengthening, stair training, gait training, and education. 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 Now, patient performs rolling and supine <-> sit with independence, sit <-> stand and transfers with independence, ambulates 150' with a single point cane with independence (including 50' with at least 2 turns of 90 degrees but needs SBA for ambulating over an uneven surface), can go up and down 12 steps using 1 handrail with CGA/SBA, and can brain picker an object from the floor using a traffic operations manager with CGA/SBA. Patient has been discharged from this facility and will be discharged from PT at this time. Roll Left to Right (QC): 6 Sit to Lying (QC): 6 Lying to Sitting/Side of Bed(Q: 6 Sit to Stand (QC): 6 Chair/Bqb-rh-Sminf Xfer(QC): 6 Toilet Transfer (QC): 5 Car Transfer (QC): 6 Does the Patient Walk: Yes Mode of Locomotion: Walk Anticipated Mode of Locomotion: Walk Walk 10 feet (QC): 6 Walk 50 ft with 2 Turns(QC): 6 Walk 150 ft (QC): 6 Walking 10ft on uneven surface: 4 Distance: 120'x2 Gait Assistive Device: Cane Single Point Does the Pt Use a Wheelchair: No Wheel 50 ft with 2 turns (QC): 9 Wheel 150 ft (QC): 9 #of Steps: 12 1 Step (curb) (QC): 4 4 Steps (QC): 4 12 Steps (QC): 4 Walking Assistive Device: Cane Balance Sitting Static: Normal Balance Sitting Dynamic: Normal Balance-Standing Static: Good Picking up an Object (QC): 4 Occupational Therapy Decreased Activ Tolerance, Decreased UE Strength, Impaired Coordination, Impaired Self-Care Skills, Restricted Funct UE ROM Eating (QC): 5 Oral Hygiene (QC): 6 Shower/Bathe Self (QC): 6 Upper Body Dressing (QC): 4 Lower Body Dressing (QC): 4 On/Off Footwear (QC): 5 Toileting Hygiene (QC): 6 PT Celery Stripper Goals Intermediate Goals PT Intermediate Goals Time Frame: Feb 27, 2022 Roll Left to Right (QC): 6 Sit to Lying (QC): 6 Lying-Sitting on Side/Bed(QC): 6 Sit to Stand (QC): 5 Chair/Nqw-tm-Hjpws Xfer(QC): 5 Car Transfer (QC): 5 Does the Patient Walk: Yes Walk 10 feet (QC): 5 Walk 10ft-Uneven Surface(QC): 5 Walk 50ft with 2 Turns (QC): 5 Walk 150 ft (QC): 5 Wheel 50 feet with 2 turns (QC: 9 1 Step (curb) (QC): 4 4 Steps (QC): 4 12 Steps (QC): 88 Picking up an Object (QC): 5 OT Celery Stripper Goals Intermediate Goals Time Frame: Feb 23, 2022 Eating (QC): 5 (met) Oral Hygiene (QC): 5 (met) Shower/Bathe Self (QC): 5 (met) Upper Body Dressing (QC): 3 (met) Lower Body Dressing (QC): 3 (met) On/Off Footwear (QC): 3 (met) Toileting Hygiene (QC): 6 (met) Toilet/Commode Transfer (QC): 5 1=Demonstrate adherence to instructed precautions during ADL tasks. 2=Patient will verbalize/demonstrate understanding of assistive devices/modifications for ADL. 3=Patient will improve strength/tolerance for activity to enable patient to perform ADL's. FELIZ GRIMM PT February 18, 2022 10:03
--- NOTE | 2022-02-19 09:40 | Therapy Team Discharge Summary ---
Therapy Discharge Summary Discharge Recommendations Date of Discharge February 16, 2022 at 13:10 Therapy D/C Recommendations: Home w/ Family Support, Occupational Therapy Home Care Physical Therapy Roll Left to Right (QC): 6 Sit to Lying (QC): 6 Lying to Sitting/Side of Bed(Q: 6 Sit to Stand (QC): 6 Chair/Cqk-ll-Qolnc Xfer(QC): 6 Toilet Transfer (QC): 5 Car Transfer (QC): 6 Does the Patient Walk: Yes Mode of Locomotion: Walk Anticipated Mode of Locomotion: Walk Walk 10 feet (QC): 6 Walk 50 ft with 2 Turns(QC): 6 Walk 150 ft (QC): 6 Walking 10ft on uneven surface: 4 Distance: 120'x2 Gait Assistive Device: Cane Single Point Does the Pt Use a Wheelchair: No Wheel 50 ft with 2 turns (QC): 9 Wheel 150 ft (QC): 9 #of Steps: 12 1 Step (curb) (QC): 4 4 Steps (QC): 4 12 Steps (QC): 4 Walking Assistive Device: Cane Balance Sitting Static: Normal Balance Sitting Dynamic: Normal Balance-Standing Static: Good Picking up an Object (QC): 4 Occupational Therapy Pt arrived to ARU following a CVA. At time of evaluation, pt was dependent for toileting and footwear, max a for lower body dressing, upper body dressing, min a for bathing, sba for oral care, and set up for eating. During pt's rehab stay, OT focused on safety, UE ROM, strengthening, balance, attention, visual perception, energy conservation strategies and compensatory techniques. 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 See below for current levels of assist. Pt is now discharged from this facility and will be discharged from OT at this time. Decreased Activ Tolerance, Decreased UE Strength, Impaired Coordination, Impaired Self-Care Skills, Restricted Funct UE ROM Eating (QC): 5 Oral Hygiene (QC): 6 Shower/Bathe Self (QC): 6 Upper Body Dressing (QC): 4 Lower Body Dressing (QC): 4 On/Off Footwear (QC): 5 Toileting Hygiene (QC): 6 PT Head Teller Goals Senior Care Goals PT Head Teller Goals Time Frame: Feb 27, 2022 Roll Left to Right (QC): 6 Sit to Lying (QC): 6 Lying-Sitting on Side/Bed(QC): 6 Sit to Stand (QC): 5 Chair/Yif-do-Xkfiq Xfer(QC): 5 Car Transfer (QC): 5 Does the Patient Walk: Yes Walk 10 feet (QC): 5 Walk 10ft-Uneven Surface(QC): 5 Walk 50ft with 2 Turns (QC): 5 Walk 150 ft (QC): 5 Wheel 50 feet with 2 turns (QC: 9 1 Step (curb) (QC): 4 4 Steps (QC): 4 12 Steps (QC): 88 Picking up an Object (QC): 5 OT Senior Care Goals Senior Care Goals Time Frame: Feb 23, 2022 Eating (QC): 5 (met) Oral Hygiene (QC): 5 (met) Shower/Bathe Self (QC): 5 (met) Upper Body Dressing (QC): 3 (met) Lower Body Dressing (QC): 3 (met) On/Off Footwear (QC): 3 (met) Toileting Hygiene (QC): 6 (met) Toilet/Commode Transfer (QC): 5 (met) 1=Demonstrate adherence to instructed precautions during ADL tasks. 2=Patient will verbalize/demonstrate understanding of assistive devices/modifications for ADL. 3=Patient will improve strength/tolerance for activity to enable patient to perform ADL's. Susi Quach OT February 19, 2022 09:39
== END 2022-02-16 13:10 | disposition home or self-care (01) | DRG 57 ==
PROVIDERS: ADMIT Internal Medicine; ATTEND Internal Medicine
PROC: 3E0U33Z Introduction of Anti-inflammatory into Joints, Percutaneous Approach (ICD-10-PCS; principal; 2022-02-13)
DX: I69.354 Hemiplegia and hemiparesis following cerebral infarction affecting left non-dominant side (principal); C61 Malignant neoplasm of prostate; I10 Essential (primary) hypertension; E78.2 Mixed hyperlipidemia; E78.00 Pure hypercholesterolemia, unspecified; N40.1 Benign prostatic hyperplasia with lower urinary tract symptoms; R35.0 Frequency of micturition; M17.12 Unilateral primary osteoarthritis, left knee; I25.10 Atherosclerotic heart disease of native coronary artery without angina pectoris; I48.0 Paroxysmal atrial fibrillation; K21.9 Gastro-esophageal reflux disease without esophagitis; F32.A Depression, unspecified; F41.9 Anxiety disorder, unspecified; D64.9 Anemia, unspecified; E87.6 Hypokalemia; I95.1 Orthostatic hypotension; R56.9 Unspecified convulsions; Z87.891 Personal history of nicotine dependence; Z88.1 Allergy status to other antibiotic agents; Z88.7 Allergy status to serum and vaccine; Z91.048 Other nonmedicinal substance allergy status; Z79.82 Long term (current) use of aspirin
CPT/HCPCS: 36415; 73562; 80053; 82274; 85025; 93005; 94760

== ENCOUNTER 2022-03-03 16:09 | Observation (INO) | payer MEDICARE ==
[~2022-03-03] VITALS: Ht 170.8 cm; Wt 75.9 kg
[~2022-03-03 16:09] MED LIST changes: +RIVA20TA2 PO
--- NOTE | 2022-03-03 16:29 | ED Syncope ---
General Chief Complaint: Dizziness/Syncope Stated Complaint: SYNCOPE Source of Information: Patient, EMS Exam Limitations: No Limitations History of Present Illness Date Seen by Provider: Mar 03, 2022 Time Seen by Provider: 16:25 Initial Comments This is an 81-year-old male with history of prostate cancer and recurrent syncopal events that presents to the emergency room for evaluation of syncope. He states that shortly after going to the bathroom he was walking back to the kitchen where he was getting his haircut and he felt lightheaded. He told his that he was "going down" and he lowered himself to the ground and seemingly passed out. He states that this is not the first time that this is happened to him and he was recently admitted for similar symptoms. He states that he has had 2 strokes and is currently on Xarelto. He also has a loop recorder due to the syncopal events. EMS reports that when they arrived the patient's initial blood pressure was a systolic of 74 and after 2 to 300 mL of normal saline it came up to a blood pressure of 113/64. The patient states that he feels back to baseline and that he can tell when these events are going to happen. Timing/Prior Episodes: Recent History (CVA with admission) Symptoms Prior to Episode: Lightheadedness Precipitating Factors: Other (Going to the bathroom) Loss of Consciousness: Brief (Seconds) Current Symptoms: Back to Normal Allergies and Home Medications Allergies Coded Allergies: aloe vera (Verified Allergy, Unknown, RASH, 01/30/22) cephalexin (Verified Allergy, Unknown, FACE THROAT SWELLING, 01/30/22) influenza virus vaccine ts [id number] (36 mos,up) (Verified Allergy, Unknown, TERRIBLE REACTION, 01/30/22) Patient Home Medication List Home Medication List Reviewed: Yes Acetaminophen (Tylenol) 325 Mg Tablet, 650 MG PO Q6H PRN for PAIN-MILD (1-4), (Reported) Entered as Reported by: GUEVARA MONTANO on 02/05/22 1023 Atorvastatin Calcium (Atorvastatin Calcium) 80 Mg Tablet, 80 MG PO HS, (Repor steven) Entered as Reported by: GUEVARA MONTANO on 11/06/21 1019 Cholecalciferol (Vitamin D3) (Vitamin D3) 50 Mcg (2000 Unit) Tablet, 50 MCG PO DAILY, (Reported) Entered as Reported by: GUEVARA MONTANO on 02/05/22 1023 Diclofenac Sodium (Diclofenac Sodium) 100 Gm Gel..gram., 1 APPLIC TP QID PRN for PAIN-BREAKTHROUGH, (Reported) Entered as Reported by: GUEVARA MONTANO on 11/06/21 1019 Famotidine (Acid Adult Caregiver (FAMOTIDINE)) 20 Mg Tablet, 20 MG PO HS, (Reported) Entered as Reported by: GUEVARA MONTANO on 11/06/21 1019 Fludrocortisone Acetate (Fludrocortisone Acetate) 0.1 Mg Tab, 0.1 MG PO DAILY, (Reported) Entered as Reported by: GUEVARA MONTANO on 02/05/22 1041 Lactobacillus Acidophilus (Probiotic) 10 Billion Cell Capsule, 1 EACH PO DAILY, (Reported) Entered as Reported by: GUEVARA MONTANO on 02/05/22 1023 Midodrine HCl (Midodrine HCl) 5 Mg Tablet, 5 MG PO 0900,1500,2100, (Reported) Entered as Reported by: GUEVARA MONTANO on 02/05/22 1023 [place]-3/Dha/Epa/Fish Oil (Megared Adv 6X Abs 800 mg Sfgl) 476 Mg-800 Mg Capsule, 1 EACH PO DAILY, (Reported) Entered as Reported by: GUEVARA MONTANO on 02/05/22 1039 Pantoprazole Sodium (Pantoprazole Sodium) 40 Mg Tablet.dr, 40 MG PO BIDAC, (Reported) Entered as Reported by: GUEVARA MONTANO on 11/06/21 1019 Rivaroxaban (Xarelto Tablet) 20 Mg Tablet, 20 MG PO DAILY@1700 Prescribed by: GUILLERMO CABELLO on 02/15/22 1224 Sennosides/Docusate Sodium (Senna-S Tablet) 8.6 Mg-50 Mg Tablet, 1 EACH PO BID PRN for CONSTIPATION-6TH LINE, (Reported) Entered as Reported by: GUEVARA MONTANO on 02/05/22 1023 Silodosin (Silodosin) 8 Mg Capsule, 8 MG PO 1800, (Reported) Entered as Reported by: GUEVARA MONTANO on 02/05/22 1023 Review of Systems Constitutional: see HPI EENTM: no symptoms reported Respiratory: no symptoms reported Cardiovascular: syncope Gastrointestinal: no symptoms reported Genitourinary: no symptoms reported Musculoskeletal: no symptoms reported Skin: no symptoms reported Past Lpaexyn-Gkgnsc-Rbvsiy Hx Patient Social History Tobacco Use?: No Immunizations Up To Date Tetanus Booster (TDap): Unknown First/Initial COVID19 Vaccinat: NONE Second COVID19 Vaccination Sid: NONE Third COVID19 Vaccination Date: NONE Past Medical History Surgery/Hospitalization HX: PROSTATE CA,(CURRENT) (PT. HAD A SHOT LAST MONTH TO STOP TESTOSTERONE) WILL BE GETTING SEEDS INTO PROSTATE AT SOME POINT THEN WILL HAVE RADIATION TREATMENT. STROKE, TIA SX:NATALIA, CAROTID STENTS, FILTER IN CAROTID.LOOP RECORDER, HTN, HIGH LIPIDS, DEPRESSION, ARTHRITIS Surgeries: Yes (CATARACTS, PROSTATE BX, CAROTID ENDARTERECTOMY STROKE DURING 05/12, LOOP REC) Eye Surgery, Gallbladder, Vasectomy Respiratory: No Cardiac: Yes Coronary Artery Disease, High Cholesterol, Hypotension, Irregular Heartbeat Neurological: Yes (STROKE 04/2021 WITH LEFT SIDE WEAKNESS) Stroke Genitourinary: Yes (PROSTATE CANCER) Benign Prostatic Hyperpl, Prostate Problems, Kidney Stones Gastrointestinal: Yes Gastroesophageal Reflux, Chronic Constipation, Gall Bladder Disease Musculoskeletal: Yes Arthritis, Chronic Back Pain Endocrine: No HEENT: No Cataract Cancer: Yes Prostate Did You Recieve Any Treatments: Yes What Type of Treatment Did You: Radiation Psychosocial: Yes Depression Integumentary: Yes (DRY SKINS) Blood Disorders: No Physical Exam Vital Signs Vital Signs - First Documented 03/03/22 16:14 Temp 35.7 Pulse 65 Resp 18 B/P (MAP) 132/63 (86) Pulse Ox 98 Capillary Refill : Height, Weight, BMI Height: '" Weight: lbs. oz. kg; 26.61 BMI Method: General Appearance: No Apparent Distress HEENT: PERRL/EOMI, Pharynx Normal Neck: Full Range of Motion Cardiovascular: Regular Rate, Rhythm, No Edema, Other (Heart sounds distant) Respiratory: Chest Non Tender, Lungs Clear Gastrointestinal: Normal Bowel Sounds Back: Normal Inspection Extremities: Normal Capillary Refill, Normal Inspection Neurologic/Psychiatric: Alert, Oriented x3, ehs teacher II-XII Norm as Tested Cranial Nerves: PERRL Motor/Sensory: No Motor Deficit Skin: Normal Color, Warm/Dry Progress/Results/Core Measures Results/Orders Lab Results Laboratory Tests Test 03/03/22 16:18 Range/Units White Blood Count 7.0 4.3-11.0 10^3/uL Red Blood Count 3.92 L 4.30-5.52 10^6/uL Hemoglobin 11.0 L 13.3-17.7 g/dL Hematocrit 35 L 40-54 % Mean Corpuscular Volume 90 80-99 fL Mean Corpuscular Hemoglobin 28 25-34 pg Mean Corpuscular Hemoglobin Concent 31 L 32-36 g/dL Red Cell Distribution Width 14.6 H 10.0-14.5 % Platelet Count 204 130-400 10^3/uL Mean Platelet Volume 10.3 9.0-12.2 fL Immature Granulocyte % (Auto) 0 % Neutrophils (%) (Auto) 48 42-75 % Lymphocytes (%) (Auto) 38 12-44 % Monocytes (%) (Auto) 9 0-12 % Eosinophils (%) (Auto) 3 0-10 % Basophils (%) (Auto) 1 0-10 % Neutrophils # (Auto) 3.4 1.8-7.8 X 10^3 Lymphocytes # (Auto) 2.7 1.0-4.0 X 10^3 Monocytes # (Auto) 0.7 0.0-1.0 X 10^3 Eosinophils # (Auto) 0.2 0.0-0.3 10^3/uL Basophils # (Auto) 0.1 0.0-0.1 10^3/uL Immature Granulocyte # (Auto) 0.0 0.0-0.1 10^3/uL Sodium Level 143 135-145 MMOL/L Potassium Level 3.7 3.6-5.0 MMOL/L Chloride Level 107 98-107 MMOL/L Carbon Dioxide Level 24 21-32 MMOL/L Anion Gap 12 5-14 MMOL/L Blood Urea Nitrogen 14 7-18 MG/DL Creatinine 0.98 0.60-1.30 MG/DL Estimat Glomerular Filtration Rate 77 BUN/Creatinine Ratio 14 Glucose Level 143 H 70-105 MG/DL Calcium Level 8.2 L 8.5-10.1 MG/DL Corrected Calcium 8.8 8.5-10.1 MG/DL Total Bilirubin 0.3 0.1-1.0 MG/DL Aspartate Amino Transf (AST/SGOT) 27 5-34 U/L Alanine Aminotransferase (ALT/SGPT) 28 0-55 U/L Alkaline Phosphatase 56 40-136 U/L Troponin I < 0.028 <0.028 NG/ML Total Protein 6.1 L 6.4-8.2 GM/DL Albumin 3.3 3.2-4.5 GM/DL My Orders Orders - EMILY YOUNG Ekg Tracing (03/03/22 16:16) Cbc With Automated Diff (03/03/22 16:22) Comprehensive Metabolic Panel (03/03/22 16:22) Troponin I Abimael (03/03/22 16:22) Chest 1 View, Ap/Pa Only (03/03/22 16:22) Ct Head Wo (03/03/22 16:22) Ed Iv/Invasive Line Start (03/03/22 16:22) Monitor-Rhythm Ecg Trace Only (03/03/22 16:22) Ed Admission (Communication) (03/03/22 17:12) Vital Signs/I&O 03/03/22 16:14 Temp 35.7 Pulse 65 Resp 18 B/P (MAP) 132/63 (86) Pulse Ox 98 Departure Communication (Admissions) Time/Spoke to Admitting Phy: 17:14 Dr. Cabello accepts patient at this time Time/Spoke to Consulting Phy: 17:15 Dr. Carr will consult on patient. We will attempt to get loop recording from [employer]. Chronic findings noted with CT scan of the head without acute process. Stable vital signs. Lab work reassuring. No seizure-like activity. Patient will be admitted for further evaluation for syncopal episode Communication (PCP) Interrogated loop recorder in the emergency room and there were no acute arrhythmias in the last 4 days Impression Primary Impression: Syncope Disposition: 09 ADMITTED INPATIENT Condition: Stable Admissions Decision to Admit Reason: Admit from ER (General) Decision to Admit/Date: Mar 03, 2022 Time/Decision to Admit Time: 17:16 Departure-Patient Inst. Referrals: GUILLERMO CABELLO DO (PCP) Primary Care Physician EMILY YOUNG Mar 03, 2022 16:29
[2022-03-03 16:38] LABS: MEAN CORPUSCULAR HEMOGLOBIN 28 pg (25-34)
[2022-03-03 16:39] LABS: BASOPHILS % (AUTO) 1 % (0-10); EOSINOPHILS % (AUTO) 3 % (0-10); HEMATOCRIT 35 % (40-54); LYMPHOCYTES % (AUTO) 38 % (12-44); MEAN CORPUSCULAR HGB CONC 31 g/dL (32-36); MEAN CORPUSCULAR VOLUME 90 fL (80-99); MEAN PLATELET VOLUME 10.3 fL (9.0-12.2); MONOCYTES % (AUTO) 9 % (0-12); NEUTROPHILS % (AUTO) 48 % (42-75); PLATELET COUNT 204 10^3/uL (130-400)
[2022-03-03 16:40] LABS: BASOPHILS # (AUTO) 0.1 10^3/uL (0.0-0.1); EOSINOPHILS # (AUTO) 0.2 10^3/uL (0.0-0.3); LYMPHOCYTES # (AUTO) 2.7 X 10^3 (1.0-4.0); MONOCYTES # (AUTO) 0.7 X 10^3 (0.0-1.0); NEUTROPHILS # (AUTO) 3.4 X 10^3 (1.8-7.8)
[2022-03-03 16:49] LABS: CHLORIDE 107 MMOL/L (98-107); POTASSIUM 3.7 MMOL/L (3.6-5.0); SODIUM 143 MMOL/L (135-145)
[2022-03-03 16:50] LABS: ALANINE AMINOTRANSFERASE 28 U/L (0-55); ALBUMIN 3.3 GM/DL (3.2-4.5); ALKALINE PHOSPHATASE 56 U/L (40-136); BILIRUBIN,TOTAL 0.3 MG/DL (0.1-1.0); BUN/CREATININE RATIO 14; CALCIUM 8.2 MG/DL (8.5-10.1); CARBON DIOXIDE 24 MMOL/L (21-32); CREATININE SERUM 0.98 MG/DL (0.60-1.30); GFR ESTIMATED 77; GLUCOSE 143 MG/DL (70-105); TOTAL PROTEIN 6.1 GM/DL (6.4-8.2)
--- NOTE | 2022-03-03 16:56 | Diagnostic Imaging Report ---
PROCEDURE: CT head without contrast. TECHNIQUE: Multiple contiguous axial images were obtained through the brain without the use of intravenous contrast. Auto Exposure Controls were utilized during the CT exam to meet ALARA standards for radiation dose reduction. DATE: March 03, 2022. COMPARISON: MRI brain February 05, 2022. February 04, 2022. INDICATION: 81-year-old male, syncope. Left arm deficit. FINDINGS: There is abnormal low-attenuation in the right middle cerebral artery distribution which is largely similar in appearance to February 04, 2022. There is a more CSF type attenuation focus centrally in this distribution likely reflecting area of encephalomalacia. There are additional areas of low-attenuation in the periventricular and subcortical white matter likely reflecting findings of chronic small vessel ischemic disease. There is mild cerebral volume loss. There is no identified epidural or subdural hematoma. There is no identified acute intraparenchymal hemorrhage. There is no mass effect or midline shift. IMPRESSION: 1. No interval acute intracranial abnormality. 2. Large area of abnormal low-attenuation in the right middle cerebral artery distribution unchanged since February 04, 2022. Additional findings of encephalomalacia in the right frontal parietal region and findings of chronic small vessel ischemic disease. Dictated by: Dictated on workstation # [id number]
--- NOTE | 2022-03-03 16:58 | Diagnostic Imaging Report ---
EXAMINATION: Chest radiograph, portable AP view. DATE: 03/03/2022 4:49 PM INDICATION: 81-year-old male, syncope. COMPARISON: February 04, 2022. FINDINGS: Heart size and mediastinal contours are unremarkable. There is no identified pneumothorax. There is no large pleural effusion. There is no identified focal airspace consolidation. There are surgical clips in the right neck. IMPRESSION: No identified acute cardiopulmonary abnormality. Dictated by: Dictated on workstation # [id number]
[2022-03-03] MEDS ORDERED: MELATONIN 3 MG TABLET PO PRN (18:00)
[2022-03-03] MEDS ORDERED: CALCIUM CARBONATE 500 MG (TUMS) TAB.CHEW PO PRN (18:00)
[2022-03-03] MEDS ORDERED: ACETAMINOPHEN 325 MG TABLET PO PRN (18:00)
[2022-03-03] MEDS ORDERED: ONDANSETRON 4 MG/2 ML (SDV) Z0FRAN IV PRN (18:00)
[2022-03-03] MEDS ORDERED: ANTACID SUSP 30 ML UDC (MYLANTA) PO PRN (18:00)
[2022-03-03] MEDS ORDERED: ONDANSETRON 4 MG (ZOFRAN) ORAL DISSOLVE TAB PO PRN (18:00)
[2022-03-03] MEDS ORDERED: BISACODYL 10 MG SUPP (DULCOLAX) PR PRN (18:00)
[2022-03-03] MEDS ORDERED: LACTULOSE SYRUP 10GM/15ML (ENULOSE) 30ML UDC PO PRN (18:00)
[2022-03-03] MEDS ORDERED: diphenhydrAMINE 50 MG/ML INJ (BENADRYL) IVP PRN (18:00)
[2022-03-03] MEDS ORDERED: morphine INJ 4 MG/ML 1 ML (VIAL/SYRINGE) IV PRN (18:00)
[2022-03-03] MEDS ORDERED: MILK OF MAGNESIA 400 MG/5 ML 30 ML UDC PO PRN (18:00)
[2022-03-03] MEDS ORDERED: polyethylene glycoL POWDER 17 GM (MIRALAX) PACK PO PRN (18:00)
[2022-03-03] MEDS ORDERED: diphenhydrAMINE 25 MG TAB (BENADRYL) PO PRN (18:00)
--- NOTE | 2022-03-03 18:07 | History & Physical ---
History of Present Illness HPI/Chief Complaint CC: Syncope HPI: This is an 81yoWM clinic patient of mine with h/o recent CVA due to documented AF placed on OAC with DC ASA last admit last month w/h/o prior CVA 1 year ago with left sided weakness and h/o orthostasis on Midodrine and Florinef s/p loop recorder by Dr Escobar 1 month ago who presented to the ER via EMS due to syncope at home. He had had a normal BM prior to walking to the chair for his to cut his hair when he lost consciousness. He stated this was a different episode in the fact he did not "feel hot" like prior syncopal episodes. He feels back to baseline now. His SBP was low at 77 when he was assessed. IVF given with good results. Cardiology recommended admit for observation and loop recorder will be accessed tomorrow. Source: patient Exam Limitations: no limitations Date Seen 03/03/22 Time Seen by a Provider: 19:00 Attending Physician Anabel Cabello DO PCP Admitting Physician: Anabel Cabello DO Attending Physician: Anabel Cabello DO Referring Physician Date of Admission Mar 03, 2022 at 17:14 Home Medications & Allergies Home Medications Reviewed patient Home Medication Reconciliation performed by pharmacy medication reconciliations pharmacy technician instructor and/or nursing. Patients Allergies have been reviewed. Allergies Allergies Coded Allergies aloe vera (Verified Allergy, Unknown, RASH, 01/30/22) cephalexin (Verified Allergy, Unknown, FACE THROAT SWELLING, 01/30/22) influenza virus vaccine [id number] (36 mos,up) (Verified Allergy, Unknown, TERRIBLE REACTION, 01/30/22) Past Zccfvol-[id number]-Vhlsfq Hx Past Med/Social Hx: Reviewed Nursing Past Med/Soc Hx, Reviewed and Corrections made Patient Social History Marrital Status: Employed/Student: retired Alcohol Use: Denies Use Smoking Status: Former Smoker Former Smoker, Quit: January 31, 2000 2nd Hand Smoke Exposure: No Recent Hopitalizations: No Immunizations Up To Date Tetanus Booster (TDap): Unknown Past Medical History Surgeries: Eye Surgery, Gallbladder, Vasectomy Cardiac: Atrial Fibrillation, Coronary Artery Disease, High Cholesterol, Hypotension, Irregular Heartbeat Neurological: Stroke Genitourinary: Benign Prostatic Hyperpl, Prostate Problems, Kidney Stones Prostate cancer Gastrointestinal: Gastroesophageal Reflux, Chronic Constipation, Gall Bladder Disease Musculoskeletal: Arthritis, Chronic Back Pain HEENT: Cataract Cancer: Prostate Did You Recieve Any Treatments: Yes What Type of Treatment Did You: Radiation Psychosocial: Depression History of Blood Disorders: No Review of Systems Constitutional: see HPI, dizziness, malaise, weakness EENTM: no symptoms reported Respiratory: no symptoms reported Cardiovascular: no symptoms reported Gastrointestinal: no symptoms reported Genitourinary: no symptoms reported Musculoskeletal: no symptoms reported Skin: no symptoms reported Psychiatric/Neurological: No Symptoms Reported All Other Systems Reviewed Negative Unless Noted: Yes Physical Exam Physical Exam Vital Signs Vital Signs - First Documented 03/03/22 03/03/22 16:14 19:04 Temp 35.7 Pulse 65 Resp 18 B/P (MAP) 132/63 (86) Pulse Ox 98 O2 Delivery Room Air Capillary Refill : Height, Weight, BMI Height: '" Weight: lbs. oz. kg; 26.00 BMI Method: General Appearance: No Apparent Distress, Chronically ill HEENT: PERRL/EOMI, Normal ENT Inspection, Pharynx Normal Neck: Full Range of Motion Respiratory: Chest Non Tender, Lungs Clear, Normal Breath Sounds, No Accessory Muscle Use, No Respiratory Distress Cardiovascular: Regular Rate, Rhythm, No Edema, Other (Heart sounds distant) Gastrointestinal: Normal Bowel Sounds Back: Normal Inspection Extremity: Normal Capillary Refill, Normal Inspection Neurologic/Psychiatric: Alert, Oriented x3, Normal Mood/Affect, fighter pilot II-XII Norm as Tested, Motor Weakness (left sided chronic) Skin: Normal Color, Warm/Dry Results Results/Procedures Labs Laboratory Tests 03/03/22 16:18 Patient resulted labs reviewed. Assessment/Plan Admission Diagnosis Assessment: Syncope 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 maintained on midodrine and Florinef with loop recorder placed 02/2022 Dr Escobar h/o stroke suspected embolic in nature on MRI with left-sided weakness 02/06/22 placed on Xarelto h/o Isolated seizure in CT scanner during ER evaluation 02/06/22 Previous stroke 04/27/2021 with left-sided weakness sustained during carotid endarterectomy at [place] CAD previous stents Hypertension Hyperlipidemia Prostate cancer undergoing Lupron and radiation seeds managed by Dr Valencia/Dr Robert Carotid stenosis status post carotid endarterectomy 04/27/2021 Urinary frequency chronic GERD h/o UTI Plan: IVF Increase Midodrine Eval loop recorder data Fall risk Home meds Xarelto Admission Status: Observation Diagnosis/Problems Diagnosis/Problems (1) Syncope Status: Acute ANABEL CABELLO DO Mar 03, 2022 18:07
[2022-03-03] MEDS: NS IV 1000 ML 1,000 ML IV SCH (19:02)
[2022-03-03 19:04] VITALS: BP 136/60
[2022-03-03] MEDS: MIDODRINE 10 MG (PROAMATINE) TAB PO SCH (20:17)
[2022-03-03] MEDS: PANTOPRAZOLE 40 MG (PROTONIX) TAB PO SCH (20:17)
[2022-03-03] MEDS: DOCUSATE SODIUM 100 MG (COLACE) CAP PO SCH (20:18)
[2022-03-03] MEDS: SENNOSIDES 8.6 MG (SENOKOT) TAB PO SCH (20:18)
[2022-03-03] MEDS ORDERED: DICLOFENAC 1% GEL 100 GM (VOLTAREN) TUBE TOP SCH (21:00)
[2022-03-03 23:14] VITALS: BP 132/68
[2022-03-04 03:03] VITALS: BP 165/73
[2022-03-04 06:01] LABS: BASOPHILS % (AUTO) 0 % (0-10); EOSINOPHILS # (AUTO) 0.2 10^3/uL (0.0-0.3); EOSINOPHILS % (AUTO) 4 % (0-10); HEMATOCRIT 33 % (40-54); HEMOGLOBIN 10.6 g/dL (13.3-17.7); LYMPHOCYTES # (AUTO) 2.1 10^3/uL (1.0-4.0); LYMPHOCYTES % (AUTO) 41 % (12-44); MEAN CORPUSCULAR HEMOGLOBIN 28 pg (25-34); MEAN CORPUSCULAR HGB CONC 32 g/dL (32-36); MEAN CORPUSCULAR VOLUME 89 fL (80-99); MEAN PLATELET VOLUME 10.1 fL (9.0-12.2); MONOCYTES # (AUTO) 0.4 10^3/uL (0.0-1.0); MONOCYTES % (AUTO) 8 % (0-12); NEUTROPHILS # (AUTO) 2.5 10^3/uL (1.8-7.8); NEUTROPHILS % (AUTO) 47 % (42-75); PLATELET COUNT 185 10^3/uL (130-400); WHITE BLOOD COUNT 5.3 10^3/uL (4.3-11.0)
[2022-03-04 06:14] LABS: ALBUMIN 3.2 GM/DL (3.2-4.5); POTASSIUM 3.3 MMOL/L (3.6-5.0)
[2022-03-04 06:15] LABS: CALCIUM 8.4 MG/DL (8.5-10.1)
[2022-03-04 06:17] LABS: TOTAL PROTEIN 5.7 GM/DL (6.4-8.2)
[2022-03-04 06:18] LABS: BILIRUBIN,TOTAL 0.3 MG/DL (0.1-1.0)
[2022-03-04 06:20] LABS: CREATININE SERUM 0.76 MG/DL (0.60-1.30)
[2022-03-04] MEDS: NS IV 1000 ML 1,000 ML IV SCH (06:39)
[2022-03-04] MEDS: PANTOPRAZOLE 40 MG (PROTONIX) TAB PO SCH (06:39)
[2022-03-04 07:39] VITALS: BP 157/84
[2022-03-04] MEDS: MIDODRINE 10 MG (PROAMATINE) TAB PO SCH (08:33)
[2022-03-04] MEDS: DOCUSATE SODIUM 100 MG (COLACE) CAP PO SCH (08:37)
[2022-03-04] MEDS: SENNOSIDES 8.6 MG (SENOKOT) TAB PO SCH (08:37)
[2022-03-04] MEDS ORDERED: FLUDROCORTISONE 0.1 MG (FLORINEF) TAB PO SCH (09:00)
--- NOTE | 2022-03-04 09:24 | Consultation-Cardiology ---
HPI-Cardiology Cardiology Consultation: Date of Consultation 03/04/22 Time Seen by a Provider: 09:30 Date of Admission 03-03-22 Attending Physician Anabel Cabello DO Admitting Physician Admitting Physician: Anabel Cabello DO Attending Physician: Anabel Cabello DO Consulting Physician Mary Ellen Carr MD HPI: Chief Complaint: Syncope Mr. Allen is an 81 yr old male admitted to 429 from the ED d/t syncopal episode. He reports he was sitting up in a chair at home getting his hair cut. He reports he got up to go have a BM. When he returned he sat down in the chair and began to feel unwell and dizzy. The next thing he recalls EMS was rousing him. He is unsure as to how long he was unresponsive. He denies any loss of bowel or bladder control. He reports EMS stated his BP was in the 70's systolic. He reports he has been having issues with low blood pressure since his R CEA in Apr of last yr. He states he tries to stay hydrated and he is taking his Midodrine and florinef. He reports he does not wear compression socks at home. He reports he has been up ambulating in the halls this morning without difficulty. No c/o n/v/d. No c/o fever or chills. No c/o LE swelling. He currently has knee high compression socks on. Review of Systems-Cardiology Review of Systems Constitutional: No chills, No fever; lightheadedness Eyes: No vision change Ears/Nose/Throat: No epistaxis, No recent hearing loss Respiratory: As described under HPI Cardiovascular: As described under HPI Gastrointestinal: No diarrhea, No nausea, No vomiting Genitourinary: No dysuria; frequency Musculoskeletal: other (chronic left foot numbness; chronic right hand numbess and weakness following CVA in Apr 2021) Skin: No rash on exposed areas, No ulcerations on exposed areas Psychiatric/Neurological: syncope; No anxiety, No depression, No seizure Hematologic: No bleeding abnormalities All Other Systems Reviewed Negative Unless Noted: Yes VMR-Kzsymd-Recntt Hx Patient Social History Marrital Status: Employed/Student: retired Smoking Status: Former Smoker 2nd Hand Smoke Exposure: No Have you traveled recently?: No Alcohol Use?: No Pt feels they are or have been: No Immunizations Up To Date Tetanus Booster (TDap): Unknown Past Medical History PMH As described under Assessment. Family Medical History Family Medical History: The patient does not know of any family history of premature coronary artery disease in first-degree relatives. Allergies and Home Medications Allergies Coded Allergies: aloe vera (Verified Allergy, Unknown, RASH, 01/30/22) cephalexin (Verified Allergy, Unknown, FACE THROAT SWELLING, 01/30/22) influenza virus vaccine ts [id number] (36 mos,up) (Verified Allergy, Unknown, TERRIBLE REACTION, 01/30/22) Patient Home Medication List Acetaminophen (Tylenol) 325 Mg Tablet, 650 MG PO Q6H PRN for PAIN-MILD (1-4), (Reported) Entered as Reported by: GUEVARA MONTANO on 02/05/22 1023 Atorvastatin Calcium (Atorvastatin Calcium) 80 Mg Tablet, 80 MG PO HS, (Reported) Entered as Reported by: GUEVARA MONTANO on 11/06/21 1019 Cholecalciferol (Vitamin D3) (Vitamin D3) 50 Mcg (2000 Unit) Tablet, 50 MCG PO DAILY, (Reported) Entered as Reported by: GUEVARA MONTANO on 02/05/22 1023 Diclofenac Sodium (Diclofenac Sodium) 100 Gm Gel..gram., 1 APPLIC TP QID PRN for PAIN-BREAKTHROUGH, (Reported) Entered as Reported by: GUEVARA MONTANO on 11/06/21 1019 Famotidine (Acid Utility Mechanic (FAMOTIDINE)) 20 Mg Tablet, 20 MG PO HS, (Reported) Entered as Reported by: GUEVARA MONTANO on 11/06/21 1019 Fludrocortisone Acetate (Fludrocortisone Acetate) 0.1 Mg Tab, 0.1 MG PO DAILY, (Reported) Entered as Reported by: GUEVARA MONTANO on 02/05/22 1041 Lactobacillus Acidophilus (Probiotic) 10 Billion Cell Capsule, 1 EACH PO DAILY, (Reported) Entered as Reported by: GUEVARA MONTANO on 02/05/22 1023 Midodrine HCl (Midodrine HCl) 5 Mg Tablet, 5 MG PO 0900,1500,2100, (Reported) Entered as Reported by: GUEVARA MONTANO on 02/05/22 1023 [place]-3/Dha/Epa/Fish Oil (Megared Adv 6X Abs 800 mg Sfgl) 476 Mg-800 Mg Capsule, 1 EACH PO DAILY, (Reported) Entered as Reported by: GUEVARA MONTANO on 02/05/22 1039 Pantoprazole Sodium (Pantoprazole Sodium) 40 Mg Tablet.dr, 40 MG PO BIDAC, (Reported) Entered as Reported by: GUEVARA MONTANO on 11/06/21 1019 Rivaroxaban (Xarelto Tablet) 20 Mg Tablet, 20 MG PO DAILY@1700 Prescribed by: ANABEL CABELLO on 02/15/22 1224 Sennosides/Docusate Sodium (Senna-S Tablet) 8.6 Mg-50 Mg Tablet, 1 EACH PO BID PRN for CONSTIPATION-6TH LINE, (Reported) Entered as Reported by: GUEVARA MONTANO on 02/05/22 1023 Silodosin (Silodosin) 8 Mg Capsule, 8 MG PO 1800, (Reported) Entered as Reported by: GUEVARA MONTANO on 02/05/22 1023 Physical Exam-Cardiology Physical Exam Vital Signs/I&O 03/03/22 03/04/22 03/04/22 03/04/22 23:14 01:00 03:03 06:41 Temp 36.1 36.2 Pulse 70 68 65 78 Resp 20 18 B/P (MAP) 132/68 (89) 165/73 (103) Pulse Ox 96 96 O2 Delivery Room Air Room Air 03/04/22 03/04/22 07:39 08:39 Temp 36.7 Pulse 72 Resp 16 B/P (MAP) 157/84 (108) Pulse Ox 95 O2 Delivery Room Air Room Air 03/04/22 00:00 Intake Total 2200 ml Output Total 100 ml Balance 2100 ml Capillary Refill : Constitutional: AAO x 3, well-developed, well-nourished HEENT: PERRL, hearing is well preserved, oral hygience is good Neck: No carotid bruit; carotid pulses are 2 + bilaterally Respiratory: No accessory muscle use, No respiratory distress; chest expansion is symmetric, chest is bilaterally symmetric, lungs clear to auscultation Cardiovascular: regular rate-rhythm; No JVD; S1 and S2 Extremities: no lower extremity edema bilateral Neurologic/Psychiatric: other (LUE 4/5) Skin: No rash on exposed areas, No ulcerations on exposed areas Data Review Labs Laboratory Tests 03/03/22 16:18: White Blood Count 7.0, Red Blood Count 3.92L, Hemoglobin 11.0L, Hematocrit 35L, Mean Corpuscular Volume 90, Mean Corpuscular Hemoglobin 28, Mean Corpuscular Hemoglobin Concent 31L, Red Cell Distribution Width 14.6H, Platelet Count 204, Mean Platelet Volume 10.3, Immature Granulocyte % (Auto) 0, Neutrophils (%) (Auto) 48, Lymphocytes (%) (Auto) 38, Monocytes (%) (Auto) 9, Eosinophils (%) (Auto) 3, Basophils (%) (Auto) 1, Neutrophils # (Auto) 3.4, Lymphocytes # (Auto) 2.7, Monocytes # (Auto) 0.7, Eosinophils # (Auto) 0.2, Basophils # (Auto) 0.1, Immature Granulocyte # (Auto) 0.0, Sodium Level 143, Potassium Level 3.7, Chloride Level 107, Carbon Dioxide Level 24, Anion Gap 12, Blood Urea Nitrogen 14, Creatinine 0.98, Estimat Glomerular Filtration Rate 77, BUN/Creatinine Ratio 14, Glucose Level 143H, Calcium Level 8.2L, Corrected Calcium 8.8, Total Bilirubin 0.3, Aspartate Amino Transf (AST/SGOT) 27, Alanine Aminotransferase (ALT/SGPT) 28, Alkaline Phosphatase 56, Troponin I < 0.028, Total Protein 6.1L, Albumin 3.3 03/04/22 05:34: White Blood Count 5.3, Red Blood Count 3.75L, Hemoglobin 10.6L, Hematocrit 33L, Mean Corpuscular Volume 89, Mean Corpuscular Hemoglobin 28, Mean Corpuscular Hemoglobin Concent 32, Red Cell Distribution Width 14.5, Platelet Count 185, Mean Platelet Volume 10.1, Immature Granulocyte % (Auto) 0, Neutrophils (%) (Auto) 47, Lymphocytes (%) (Auto) 41, Monocytes (%) (Auto) 8, Eosinophils (%) (Auto) 4, Basophils (%) (Auto) 0, Neutrophils # (Auto) 2.5, Lymphocytes # (Auto) 2.1, Monocytes # (Auto) 0.4, Eosinophils # (Auto) 0.2, Basophils # (Auto) 0.0, Immature Granulocyte # (Auto) 0.0, Sodium Level 144, Potassium Level 3.3L, Chloride Level 110H, Carbon Dioxide Level 25, Anion Gap 9, Blood Urea Nitrogen 11, Creatinine 0.76, Estimat Glomerular Filtration Rate 90, BUN/Creatinine Ratio 14, Glucose Level 104, Calcium Level 8.4L, Corrected Calcium 9.0, Total Bilirubin 0.3, Aspartate Amino Transf (AST/SGOT) 16, Alanine Aminotransferase (ALT/SGPT) 26, Alkaline Phosphatase 57, Total Protein 5.7L, Albumin 3.2 Radiology NAME: NIRMALA ALLEN [facility] REC#: [id number] PT STATUS: REG ER : 1940 PHYSICIAN: EMILY YOUNG ADMIT DATE: 03/03/22/ER Signed Date of Exam:03/03/22 CHEST 1 VIEW, AP/PA ONLY EXAMINATION: Chest radiograph, portable AP view. DATE: 03/03/2022 4:49 PM INDICATION: 81-year-old male, syncope. COMPARISON: February 04, 2022. FINDINGS: Heart size and mediastinal contours are unremarkable. There is no identified pneumothorax. There is no large pleural effusion. There is no identified focal airspace consolidation. There are surgical clips in the right neck. IMPRESSION: No identified acute cardiopulmonary abnormality. Dictated by: Dictated on workstation # [id number] Dict: 03/03/22 1656 Trans: 03/03/22 170 [facility] [id number] Interpreted by: TANIKA CANO MD Electronically signed by: TANIKA CANO MD 03/03/22 170 NAME: NIRMALA ALLEN [facility] REC#: [id number] PT STATUS: REG ER : 1940 PHYSICIAN: EMILY YOUNG ADMIT DATE: 03/03/22/ER Signed Date of Exam:03/03/22 CT HEAD WO PROCEDURE: CT head without contrast. TECHNIQUE: Multiple contiguous axial images were obtained through the brain without the use of intravenous contrast. Auto Exposure Controls were utilized during the CT exam to meet ALARA standards for radiation dose reduction. DATE: March 03, 2022. COMPARISON: MRI brain February 05, 2022. February 04, 2022. INDICATION: 81-year-old male, syncope. Left arm deficit. FINDINGS: There is abnormal low-attenuation in the right middle cerebral artery distribution which is largely similar in appearance to February 04, 2022. There is a more CSF type attenuation focus centrally in this distribution likely reflecting area of encephalomalacia. There are additional areas of low-attenuation in the periventricular and subcortical white matter likely reflecting findings of chronic small vessel ischemic disease. There is mild cerebral volume loss. There is no identified epidural or subdural hematoma. There is no identified acute intraparenchymal hemorrhage. There is no mass effect or midline shift. IMPRESSION: 1. No interval acute intracranial abnormality. 2. Large area of abnormal low-attenuation in the right middle cerebral artery distribution unchanged since February 04, 2022. Additional findings of encephalomalacia in the right frontal parietal region and findings of chronic small vessel ischemic disease. Dictated by: Dictated on workstation # [id number] Dict: 03/03/22 1649 Trans: 03/03/22 1700 [facility] [id number] Interpreted by: TANIKA CANO MD Electronically signed by: TANIKA CANO MD 03/03/22 1700 ECG Impression ECG Comment SR with first degree AV block A/P-Cardiology Assessment/Admission Diagnosis Syncope - ILR interrogation on 03-03-22 reviewed does not show any evidence of arrhythmia, bradycardia or pauses (implanted December [address] Jeffries ins) - likely neurocardiogenic syncope d/t transient hypotension PAF - first documented during hospitalization in January [address] Escobar - OAC with Xarelto H/o orthostatic hypotension - maintained on midodrine and fludrocortisone Echocardiogram of 04-27-[address] 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 Arias - Carotid u/s of 04-27-21 post carotid endarterectomy shows post surgical changes to right carotid and approx 30% stenosis to the L ICA - following with Dr. Arias of [place] [facility] services Mixed hyperlipidemia - maintained on statin Discussion and Recomendations Syncope - likely neurocardiogenic d/t transient hypotension - advise continuation of Midodrine and florinef - advise good hydration - advise thigh high compressions stockings to be put on in the morning and off at hs Replace potassium today Advise repeat lab as an out pt Advise out pt f/u with Dr. Escobar in 1 week We morena like to thank medical services for this consult Further recs will be based on his hospital course MABEL SNOWDEN Mar 04, 2022 09:23
--- NOTE | 2022-03-04 10:12 | Discharge Summary ---
Diagnosis/Chief Complaint Date of Admission Mar 03, 2022 at 17:14 Date of Discharge Discharge Date: Mar 04, 2022 Discharge Diagnosis Assessment: Syncope 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 maintained on midodrine and Florinef with loop recorder placed 02/2022 Dr Escobar h/o stroke suspected embolic in nature on MRI with left-sided weakness 02/06/22 placed on Xarelto h/o Isolated seizure in CT scanner during ER evaluation 02/06/22 Previous stroke 04/27/2021 with left-sided weakness sustained during carotid endarterectomy at [place] CAD previous stents Hypertension Hyperlipidemia Prostate cancer undergoing Lupron and radiation seeds managed by Dr Valencia/Dr Robert Carotid stenosis status post carotid endarterectomy 04/27/2021 Urinary frequency chronic GERD h/o UTI Plan: IVF Increase Midodrine Eval loop recorder data Fall risk Home meds Xarelto Discharge Summary Discharge Physical Examination Allergies: Coded Allergies: aloe vera (Verified Allergy, Unknown, RASH, 01/30/22) cephalexin (Verified Allergy, Unknown, FACE THROAT SWELLING, 01/30/22) influenza virus vaccine [id number] (36 mos,up) (Verified Allergy, Unknown, TERRIBLE REACTION, 01/30/22) Vitals & I&Os Vital Signs Date Time Temp Pulse Resp B/P (MAP) Pulse Ox O2 Delivery O2 Flow Rate FiO2 03/04/22 11:44 03/04/22 08:39 Room Air 03/04/22 07:39 36.7 72 16 95 General Appearance: Alert, Oriented X3, Cooperative Respiratory: Clear to Auscultation Cardiovascular: Regular Rate Neuro: Normal Gait, Normal Speech, Strength at 5/5 X4 Ext Psych/Mental Status: Mental Status NL Hospital Course Was the Problem List Reviewed?: Yes Pt had an uneventful overnight hospital course after he was admitted for a syncopal episode. IV fluids initiated for hypotension. Loop recorder was interrogated. No evidence of any arrhythmia. Neurocardiogenic syncope diagnosed. He will remain on Midodrine and Florinef. Pt will have close follow up with me and Dr. Escobar. Labs (last 24 hrs) Laboratory Tests 03/03/22 16:18: White Blood Count 7.0, Red Blood Count 3.92L, Hemoglobin 11.0L, Hematocrit 35L, Mean Corpuscular Volume 90, Mean Corpuscular Hemoglobin 28, Mean Corpuscular Hemoglobin Concent 31L, Red Cell Distribution Width 14.6H, Platelet Count 204, Mean Platelet Volume 10.3, Immature Granulocyte % (Auto) 0, Neutrophils (%) (Auto) 48, Lymphocytes (%) (Auto) 38, Monocytes (%) (Auto) 9, Eosinophils (%) (Auto) 3, Basophils (%) (Auto) 1, Neutrophils # (Auto) 3.4, Lymphocytes # (Auto) 2.7, Monocytes # (Auto) 0.7, Eosinophils # (Auto) 0.2, Basophils # (Auto) 0.1, Immature Granulocyte # (Auto) 0.0, Sodium Level 143, Potassium Level 3.7, Chloride Level 107, Carbon Dioxide Level 24, Anion Gap 12, Blood Urea Nitrogen 14, Creatinine 0.98, Estimat Glomerular Filtration Rate 77, BUN/Creatinine Ratio 14, Glucose Level 143H, Calcium Level 8.2L, Corrected Calcium 8.8, Total Bilirubin 0.3, Aspartate Amino Transf (AST/SGOT) 27, Alanine Aminotransferase (ALT/SGPT) 28, Alkaline Phosphatase 56, Troponin I < 0.028, Total Protein 6.1L, Albumin 3.3 03/04/22 05:34: White Blood Count 5.3, Red Blood Count 3.75L, Hemoglobin 10.6L, Hematocrit 33L, Mean Corpuscular Volume 89, Mean Corpuscular Hemoglobin 28, Mean Corpuscular H emoglobin Concent 32, Red Cell Distribution Width 14.5, Platelet Count 185, Mean Platelet Volume 10.1, Immature Granulocyte % (Auto) 0, Neutrophils (%) (Auto) 47, Lymphocytes (%) (Auto) 41, Monocytes (%) (Auto) 8, Eosinophils (%) (Auto) 4, Basophils (%) (Auto) 0, Neutrophils # (Auto) 2.5, Lymphocytes # (Auto) 2.1, Monocytes # (Auto) 0.4, Eosinophils # (Auto) 0.2, Basophils # (Auto) 0.0, Immature Granulocyte # (Auto) 0.0, Sodium Level 144, Potassium Level 3.3L, Chloride Level 110H, Carbon Dioxide Level 25, Anion Gap 9, Blood Urea Nitrogen 11, Creatinine 0.76, Estimat Glomerular Filtration Rate 90, BUN/Creatinine Ratio 14, Glucose Level 104, Calcium Level 8.4L, Corrected Calcium 9.0, Total Bilirubi n 0.3, Aspartate Amino Transf (AST/SGOT) 16, Alanine Aminotransferase (ALT/SGPT) 26, Alkaline Phosphatase 57, Total Protein 5.7L, Albumin 3.2 Pending Labs Laboratory Tests 03/03/22 16:18: White Blood Count 7.0, Red Blood Count 3.92, Hemoglobin 11.0, Hematocrit 35, Mean Corpuscular Volume 90, Mean Corpuscular Hemoglobin 28, Mean Corpuscular Hemoglobin Concent 31, Red Cell Distribution Width 14.6, Platelet Count 204, Mean Platelet Volume 10.3, Immature Granulocyte % (Auto) 0, Neutrophils (%) (Auto) 48, Lymphocytes (%) (Auto) 38, Monocytes (%) (Auto) 9, Eosinophils (%) (Auto) 3, Basophils (%) (Auto) 1, Neutrophils # (Auto) 3.4, Lymphocytes # (Auto) 2.7, Monocytes # (Auto) 0.7, Eosinophils # (Auto) 0.2, Basophils # (Auto) 0.1, Immature Granulocyte # (Auto) 0.0, Sodium Level 143, Potassium Level 3.7, Chloride Level 107, Carbon Dioxide Level 24, Anion Gap 12, Blood Urea Nitrogen 14, Creatinine 0.98, Estimat Glomerular Filtration Rate 77, BUN/Creatinine Ratio 14, Glucose Level 143, Calcium Level 8.2, Corrected Calcium 8.8, Total Bilirubin 0.3, Aspartate Amino Transf (AST/SGOT) 27, Alanine Aminotransferase (ALT/SGPT) 28, Alkaline Phosphatase 56, Troponin I < 0.028, Total Protein 6.1, Albumin 3.3 03/04/22 05:34: White Blood Count 5.3, Red Blood Count 3.75, Hemoglobin 10.6, Hematocrit 33, Mean Corpuscular Volume 89, Mean Corpuscular Hemoglobin 28, Mean Corpuscular Hemoglobin Concent 32, Red Cell Distribution Width 14.5, Platelet Count 185, Mean Platelet Volume 10.1, Immature Granulocyte % (Auto) 0, Neutrophils (%) (Auto) 47, Lymphocytes (%) (Auto) 41, Monocytes (%) (Auto) 8, Eosinophils (%) (Auto) 4, Basophils (%) (Auto) 0, Neutrophils # (Auto) 2.5, Lymphocytes # (Auto) 2.1, Monocytes # (Auto) 0.4, Eosinophils # (Auto) 0.2, Basophils # (Auto) 0.0, Immature Granulocyte # (Auto) 0.0, Sodium Level 144, Potassium Level 3.3, Chloride Level 110, Carbon Dioxide Level 25, Anion Gap 9, Blood Urea Nitrogen 11, Creatinine 0.76, Estimat Glomerular Filtration Rate 90, BUN/Creatinine Ratio 14, Glucose Level 104, Calcium Level 8.4, Corrected Calcium 9.0, Total Bilirubin 0.3, Aspartate Amino Transf (AST/SGOT) 16, Alanine Aminotransferase (ALT/SGPT) 26, Alkaline Phosphatase 57, Total Protein 5.7, Albumin 3.2 Discharge Home Medications: Active Scripts Active Xarelto Tablet (Rivaroxaban) 20 Mg Tablet 20 Mg PO DAILY@1700 Reported Fludrocortisone Acetate 0.1 Mg Tab 0.1 Mg PO DAILY Megared Adv 6X Abs 800 mg Sfgl ([place]-3/Dha/Epa/Fish Oil) 476 Mg-800 Mg Capsule 1 Each PO DAILY Tylenol (Acetaminophen) 325 Mg Tablet 650 Mg PO Q6H PRN Senna-S Tablet (Sennosides/Docusate Sodium) 8.6 Mg-50 Mg Tablet 1 Each PO BID PRN Silodosin 8 Mg Capsule 8 Mg PO 1800 Midodrine HCl 5 Mg Tablet 5 Mg PO 0900,1500,2100 Vitamin D3 (Cholecalciferol (Vitamin D3)) 50 Mcg (2000 Unit) Tablet 50 Mcg PO DAILY Probiotic (Lactobacillus Acidophilus) 10 Billion Cell Capsule 1 Each PO DAILY Diclofenac Sodium 100 Gm Gel..gram. 1 Applic TP QID PRN APPLY TO AFFECTED KNEES Pantoprazole Sodium 40 Mg Tablet.dr 40 Mg PO BIDAC Atorvastatin Calcium 80 Mg Tablet 80 Mg PO HS Acid Mailroom Associate (FAMOTIDINE) (Famotidine) 20 Mg Tablet 20 Mg PO HS Instructions to patient/family Please see electronic discharge instructions given to patient. Diagnosis/Problems Diagnosis/Problems (1) Syncope Status: Acute GUILLERMO CABELLO DO Mar 04, 2022 10:11
[2022-03-04] MEDS ORDERED: KCL 20 MEQ TAB (K-DUR) PO NR (10:32)
--- NOTE | 2022-03-04 10:36 | Physical Therapy Evaluation ---
PT Evaluation-General Medical Diagnosis Admission Date Mar 03, 2022 at 17:14 Medical Diagnosis: syncope Onset Date: Mar 03, 2022 Therapy Diagnosis Therapy Diagnosis: debility Precautions Precautions/Isolations: Fall Prevention, Standard Precautions Referral Physician: Radha Reason for Referral: Evaluation/Treatment Medical History Pertinent Medical History: Atrial Fib, Arthritis, CAD, CVA, GERD, HTN Current History ER secondary to syncope Reviewed History: Yes Social History Home: Single Level Current Living Status: Spouse Entry Into Home: Stairs With Railing PT Steps Into Home: 3 Prior Prior Level of Function SCALE: Activities may be completed with or without assistive devices. 0-Rawfbyjxgm-nnwtpyq completes the activity by him/herself with no assistance from a helper. 5-Set-up or Clean-up Assistance-helper sets up or cleans up; patient completes activity. Hector assists only prior to or following the activity. 4-Supervision or Touching Assistance-helper provides verbal cues and/or touching/steadying and/or contact guard assistance as patient completes activity. Assistance may be provided throughout the activity or intermittently. 3-Partial/Moderate Assistance-helper does LESS THAN HALF the effort. Hector lifts, holds or supports trunk or limbs, but provides less than half the effort. 2-Substantial/Maximal Assistance-helper does MORE THAN HALF the effort. Hector lifts or holds trunk or limbs and provides more than half the effort. 3-Wjjzsfngj-latnvn does ALL the effort. Patient does none of the effort to complete the activity. Or, the assistance of 2 or more helpers is required for the patient to complete the activity. If activity was not attempted, code reason: 7-Patient Refused. 9-Not Applicable-not attempted and the patient did not perform the activity before the current illness, exacerbation or injury. 10-Not Attempted due to Environmental Limitations-(lack of equipment, weather restraints, etc.). 88-Not Attempted due to Medical Conditions or Safety Concerns. Bed Mobility: 6 Transfers (B,C,W/C): 6 Gait: 6 Stairs: 6 Indoor Mobility (Ambulation): Independent Stairs: Independent Prior Device Use: cane PT Evaluation-Current Subjective Patient agrees to PT. Objective Patient Orientation: Normal For Age Attachments: IV ROM/Strength ROM Lower Extremities bilateral LE WFL Strength Lower Extremities 4/5 right LE/3/5 grossly left LE Integumentary/Posture Bowel Incontinence: No Bladder Incontinence: No Posture WFL Neuromuscular (Tone, Coordination, Reflexes) grossly intact Sensory Vision: Functional Hearing: Functional Transfers Roll Left to Right (QC): 6 Lying to Sitting/Side of Bed(Q: 6 Sit to Stand (QC): 6 Chair/Fjt-lx-Qsgpl Xfer(QC): 6 Gait Mode of Locomotion: Walk Anticipated Mode of Locomotion: Walk Walk 10 feet (QC): 6 Walk 50 ft with 2 Turns(QC): 6 Walk 150 ft (QC): 6 Distance: 500' Gait Assistive Device: None Comments/Gait Description safe and functional with no deviation Balance Sitting Static: Normal Sitting Dynamic: Normal Standing Static: Good Standing Dynamic: Good Assessment/Needs 81 y.o. male, is currently at [facility] with all gross motor skills and does not require skilled PT intervention. Rehab Potential: Fair PT Plan Treatment/Plan Treatment Plan: Discontinue PT, goals met Treatment Duration: Mar 04, 2022 Frequency: 1 time per week Estimated Hrs Per Day: .25 hour per day Patient and/or Family Agrees t: Yes Time/GCodes Time In: 850 Time Out: 900 Total Billed Treatment Time: 10 Total Billed Treatment 1 visit EVModC 10 min KIZZY VILLEGAS PT Mar 04, 2022 10:36
--- NOTE | 2022-03-04 10:56 | Occ Therapy Progress Note ---
Therapy Progress Note OT orders received and chart reviewed. OT visited with pt who indicates he is at his PLOF with ADLs. He ambulated in halls with PT, 500' IND, no AD. Pt has no concerns with completing ADLs, his provides assistance as needed at home. No skilled OT services indicated at this time, as pt is at [facility], d/c from OT. 1, visit [id number] BURKE ROCHA OT Mar 04, 2022 10:56
--- NOTE | 2022-03-04 13:06 | Consultation-Cardiology ---
HPI-Cardiology Cardiology Consultation: Date of Consultation 03/04/22 Time Seen by a Provider: 10:00 Date of Admission Attending Physician Anabel Cabello DO Admitting Physician Admitting Physician: Anabel Cabello DO Attending Physician: Anabel Cabello DO Consulting Physician REY HOOK MD, MA, FACP, FACC, FSCAI, CCDS HPI: Chief Complaint: Syncope Mr. Allen is an 81 yr old male admitted to 429 from the ED d/t syncopal episode. He reports he was sitting up in a chair at home getting his hair cut. He reports he got up to go have a BM. When he returned he sat down in the chair and began to feel unwell and dizzy. The next thing he recalls EMS was rousing him. He is unsure as to how long he was unresponsive. He denies any loss of bowel or bladder control. He reports EMS stated his BP was in the 70's systolic. He reports he has been having issues with low blood pressure since his R CEA in Apr of last yr. He states he tries to stay hydrated and he is taking his Midodrine and florinef. He reports he does not wear compression socks at home. He reports he has been up ambulating in the halls this morning without difficulty. No c/o n/v/d. No c/o fever or chills. No c/o LE swelling. He currently has knee high compression socks on. Review of Systems-Cardiology Review of Systems Constitutional: No chills, No fever; lightheadedness Eyes: No vision change Ears/Nose/Throat: No epistaxis, No recent hearing loss Respiratory: As described under HPI Cardiovascular: As described under HPI Gastrointestinal: No diarrhea, No nausea, No vomiting Genitourinary: No dysuria; frequency Musculoskeletal: other (chronic left foot numbness; chronic right hand numbess and weakness following CVA in Apr 2021) Skin: No rash on exposed areas, No ulcerations on exposed areas Psychiatric/Neurological: syncope; No anxiety, No depression, No seizure Hematologic: No bleeding abnormalities All Other Systems Reviewed Negative Unless Noted: Yes UMF-Ocsuay-Ccnlow Hx Patient Social History Marrital Status: Employed/Student: retired Smoking Status: Former Smoker 2nd Hand Smoke Exposure: No Have you traveled recently?: No Alcohol Use?: No Pt feels they are or have been: No Immunizations Up To Date Tetanus Booster (TDap): Unknown Past Medical History PMH As described under Assessment. Family Medical History Family Medical History: The patient does not know of any family history of premature coronary artery disease in first-degree relatives. Allergies and Home Medications Allergies Coded Allergies: aloe vera (Verified Allergy, Unknown, RASH, 01/30/22) cephalexin (Verified Allergy, Unknown, FACE THROAT SWELLING, 01/30/22) influenza virus vaccine ts [id number] (36 mos,up) (Verified Allergy, Unknown, TERRIBLE REACTION, 01/30/22) Patient Home Medication List Home Medication List Reviewed: Yes Acetaminophen (Tylenol) 325 Mg Tablet, 650 MG PO Q6H PRN for PAIN-MILD (1-4), (Reported) Entered as Reported by: GUEVARA MONTANO on 02/05/22 1023 Atorvastatin Calcium (Atorvastatin Calcium) 80 Mg Tablet, 80 MG PO HS, (Reported) Entered as Reported by: GUEVARA MONTANO on 11/06/21 1019 Cholecalciferol (Vitamin D3) (Vitamin D3) 50 Mcg (2000 Unit) Tablet, 50 MCG PO DAILY, (Reported) Entered as Reported by: GUEVARA MONTANO on 02/05/22 1023 Diclofenac Sodium (Diclofenac Sodium) 100 Gm Gel..gram., 1 APPLIC TP QID PRN for PAIN-BREAKTHROUGH, (Reported) Entered as Reported by: GUEVARA MONTANO on 11/06/21 1019 Famotidine (Acid Valuation Consultant (FAMOTIDINE)) 20 Mg Tablet, 20 MG PO HS, (Reported) Entered as Reported by: GUEVARA MONTANO on 11/06/21 1019 Fludrocortisone Acetate (Fludrocortisone Acetate) 0.1 Mg Tab, 0.1 MG PO DAILY, (Reported) Entered as Reported by: GUEVARA MONTANO on 02/05/22 1041 Lactobacillus Acidophilus (Probiotic) 10 Billion Cell Capsule, 1 EACH PO DAILY, (Reported) Entered as Reported by: GUEVARA MONTANO on 02/05/22 1023 Midodrine HCl (Midodrine HCl) 5 Mg Tablet, 5 MG PO 0900,1500,2100, (Reported) Entered as Reported by: GUEVARA MONTANO on 02/05/22 1023 [place]-3/Dha/Epa/Fish Oil (Megared Adv 6X Abs 800 mg Sfgl) 476 Mg-800 Mg Capsule, 1 EACH PO DAILY, (Reported) Entered as Reported by: GUEVARA MONTANO on 02/05/22 1039 Pantoprazole Sodium (Pantoprazole Sodium) 40 Mg Tablet.dr, 40 MG PO BIDAC, (Reported) Entered as Reported by: GUEVARA MONTANO on 11/06/21 1019 Rivaroxaban (Xarelto Tablet) 20 Mg Tablet, 20 MG PO DAILY@1700 Prescribed by: ANABEL CABELLO on 02/15/22 1224 Sennosides/Docusate Sodium (Senna-S Tablet) 8.6 Mg-50 Mg Tablet, 1 EACH PO BID PRN for CONSTIPATION-6TH LINE, (Reported) Entered as Reported by: GUEVARA MONTANO on 02/05/22 1023 Silodosin (Silodosin) 8 Mg Capsule, 8 MG PO 1800, (Reported) Entered as Reported by: GUEVARA MONTANO on 02/05/22 1023 Physical Exam-Cardiology Physical Exam Vital Signs/I&O 03/04/22 03/04/22 03/04/22 03/04/22 03:03 06:41 07:39 08:39 Temp 36.2 36.7 Pulse 65 78 72 Resp 18 16 B/P (MAP) 165/73 (103) 157/84 (108) Pulse Ox 96 95 O2 Delivery Room Air Room Air Room Air 03/04/22 11:44 B/P (MAP) 03/04/22 00:00 Intake Total 2200 ml Output Total 100 ml Balance 2100 ml Capillary Refill : Constitutional: AAO x 3, well-developed, well-nourished HEENT: PERRL, hearing is well preserved, oral hygience is good Neck: No carotid bruit; carotid pulses are 2 + bilaterally Respiratory: No accessory muscle use, No respiratory distress; chest expansion is symmetric, chest is bilaterally symmetric, lungs clear to auscultation Cardiovascular: regular rate-rhythm; No JVD; S1 and S2 Extremities: no lower extremity edema bilateral Neurologic/Psychiatric: other (LUE 4/5) Skin: No rash on exposed areas, No ulcerations on exposed areas Data Review Labs Laboratory Tests 03/03/22 16:18: White Blood Count 7.0, Red Blood Count 3.92L, Hemoglobin 11.0L, Hematocrit 35L, Mean Corpuscular Volume 90, Mean Corpuscular Hemoglobin 28, Mean Corpuscular Hemoglobin Concent 31L, Red Cell Distribution Width 14.6H, Platelet Count 204, Mean Platelet Volume 10.3, Immature Granulocyte % (Auto) 0, Neutrophils (%) ( Auto) 48, Lymphocytes (%) (Auto) 38, Monocytes (%) (Auto) 9, Eosinophils (%) (Auto) 3, Basophils (%) (Auto) 1, Neutrophils # (Auto) 3.4, Lymphocytes # (Auto) 2.7, Monocytes # (Auto) 0.7, Eosinophils # (Auto) 0.2, Basophils # (Auto) 0.1, Immature Granulocyte # (Auto) 0.0, Sodium Level 143, Potassium Level 3.7, Chloride Level 107, Carbon Dioxide Level 24, Anion Gap 12, Blood Urea Nitrogen 14, Creatinine 0.98, Estimat Glomerular Filtration Rate 77, BUN/Creatinine Ratio 14, Glucose Level 143H, Calcium Level 8.2L, Corrected Calcium 8.8, Total Bilirubin 0.3, Aspartate Amino Transf (AST/SGOT) 27, Alanine Aminotransferase (ALT/SGPT) 28, Alkaline Phosphatase 56, Troponin I < 0.028, Total Protein 6.1L, Albumin 3.3 03/04/22 05:34: White Blood Count 5.3, Red Blood Count 3.75L, Hemoglobin 10.6L, Hematocrit 33L, Mean Corpuscular Volume 89, Mean Corpuscular Hemoglobin 28, Mean Corpuscular Hemoglobin Concent 32, Red Cell Distribution Width 14.5, Platelet Count 185, Mean Platelet Volume 10.1, Immature Granulocyte % (Auto) 0, Neutrophils (%) (Auto) 47, Lymphocytes (%) (Auto) 41, Monocytes (%) (Auto) 8, Eosinophils (%) (Auto) 4, Basophils (%) (Auto) 0, Neutrophils # (Auto) 2.5, Lymphocytes # (Auto) 2.1, Monocytes # (Auto) 0.4, Eosinophils # (Auto) 0.2, Basophils # (Auto) 0.0, Immature Granulocyte # (Auto) 0.0, Sodium Level 144, Potassium Level 3.3L, Chlo ride Level 110H, Carbon Dioxide Level 25, Anion Gap 9, Blood Urea Nitrogen 11, Creatinine 0.76, Estimat Glomerular Filtration Rate 90, BUN/Creatinine Ratio 14, Glucose Level 104, Calcium Level 8.4L, Corrected Calcium 9.0, Total Bilirubin 0.3, Aspartate Amino Transf (AST/SGOT) 16, Alanine Aminotransferase (ALT/SGPT) 26, Alkaline Phosphatase 57, Total Protein 5.7L, Albumin 3.2 A/P-Cardiology Assessment/Admission Diagnosis Syncope - ILR interrogation on 03-03-22 reviewed does not show any evidence of arrhythmia, bradycardia or pauses (implanted December [address] Escobar) - likely neurocardiogenic syncope d/t transient hypotension PAF - first documented during hospitalization in January [address] Escobar - OAC with Xarelto H/o orthostatic hypotension - maintained on midodrine and fludrocortisone Echocardiogram of 04-27-[address] 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 Arias - Carotid u/s of 04-27-21 post carotid endarterectomy shows post surgical changes to right carotid and approx 30% stenosis to the L ICA - following with Dr. Arias of [place] [facility] Mixed hyperlipidemia - maintained on statin Discussion and Recomendations Syncope - likely neurocardiogenic d/t transient hypotension - advise continuation of Midodrine and florinef - advise good hydration - advise thigh-high compressions stockings to be put on in the morning and off at hs Replace potassium today Advise repeat lab as an out pt Advise out pt f/u with Dr. Escobar in 1 week I discussed his case with Dr Cabello this am I answered Mr Tiffany's questions. He wishes to go home We morena like to thank Medical services for this consult REY HOOK MD [facility] CCDS Mar 04, 2022 13:06
[2022-03-04] MEDS ORDERED: RIVAROXABAN 20 MG TABLET (XARELTO) PO SCH (17:00)
== END 2022-03-04 11:47 | disposition home or self-care (01) ==
LOC: EDUNIT# 16:09 → ER 16:10 → CSD 17:14 → 4TH 17:46
PROVIDERS: ADMIT Internal Medicine; ATTEND Internal Medicine
DX: I95.1 Orthostatic hypotension (principal); I25.10 Atherosclerotic heart disease of native coronary artery without angina pectoris; I10 Essential (primary) hypertension; E78.5 Hyperlipidemia, unspecified; C61 Malignant neoplasm of prostate; I65.29 Occlusion and stenosis of unspecified carotid artery; K21.9 Gastro-esophageal reflux disease without esophagitis; Z92.3 Personal history of irradiation; Z87.891 Personal history of nicotine dependence
CPT/HCPCS: 70450; 71045; 80053 ×2; 84484; 85025 ×2; 93005; 93041; 96360; 96361 ×2; 97162; 99283; G0378; 36415

== ENCOUNTER → 2022-03-21 | Outpatient (RCR) | payer MEDICARE | END | disposition home or self-care (01) | LOC: ONC 03-01 10:04 | PROVIDERS: ATTEND Radiology Radiation Oncology | DX: Z51.0 Encounter for antineoplastic radiation therapy (principal); C61 Malignant neoplasm of prostate; E78.00 Pure hypercholesterolemia, unspecified; K21.9 Gastro-esophageal reflux disease without esophagitis; I10 Essential (primary) hypertension; Z98.890 Other specified postprocedural states | CPT/HCPCS: 77300; 77301; 77334; 77336; 77338; 77385 ==

== ENCOUNTER → 2022-03-21 | Outpatient (RCR) | payer MEDICARE | END | disposition home or self-care (01) | PROVIDERS: ATTEND Internal Medicine | DX: I69.354 Hemiplegia and hemiparesis following cerebral infarction affecting left non-dominant side (principal) | CPT/HCPCS: 77336 ==

== ENCOUNTER 2022-03-30 10:26 | Emergency (ER) | payer MEDICARE ==
[~2022-03-30] VITALS: Ht 163 cm; Wt 74.0 kg
[2022-03-30 10:59] VITALS: BP_SYST 109; BP_SYST 120; BP_SYST 88; BP_DIAS 54; BP_DIAS 62; BP_DIAS 88
[2022-03-30 11:13] LABS: POTASSIUM 3.6 MMOL/L (3.6-5.0)
[2022-03-30 11:14] LABS: CALCIUM 9.6 MG/DL (8.5-10.1)
[2022-03-30] MEDS ORDERED: LACTATED RINGERS 1,000 ML IV ONE (11:15)
[2022-03-30 11:17] LABS: BASOPHILS # (AUTO) 0.1 10^3/uL (0.0-0.1); BASOPHILS % (AUTO) 1 % (0-10); EOSINOPHILS # (AUTO) 0.2 10^3/uL (0.0-0.3); EOSINOPHILS % (AUTO) 3 % (0-10); HEMATOCRIT 42 % (40-54); LYMPHOCYTES # (AUTO) 1.5 10^3/uL (1.0-4.0); LYMPHOCYTES % (AUTO) 30 % (12-44); MEAN CORPUSCULAR HEMOGLOBIN 28 pg (25-34); MEAN CORPUSCULAR HGB CONC 31 g/dL (32-36); MEAN CORPUSCULAR VOLUME 90 fL (80-99); MEAN PLATELET VOLUME 9.7 fL (9.0-12.2); MONOCYTES # (AUTO) 0.4 10^3/uL (0.0-1.0); MONOCYTES % (AUTO) 8 % (0-12); NEUTROPHILS # (AUTO) 2.9 10^3/uL (1.8-7.8); NEUTROPHILS % (AUTO) 57 % (42-75); PLATELET COUNT 191 10^3/uL (130-400); WHITE BLOOD COUNT 5.1 10^3/uL (4.3-11.0)
[2022-03-30 11:19] LABS: CREATININE SERUM 1.03 MG/DL (0.60-1.30)
[2022-03-30] MEDS ORDERED: MIDODRINE 10 MG (PROAMATINE) TAB PO ONE (12:15)
[2022-03-30 12:40] LABS: BILIRUBIN,URINE NEGATIVE (NEGATIVE); CLARITY,URINE CLEAR; COLOR,URINE YELLOW; GLUCOSE, URINE (UA) NEGATIVE (NEGATIVE); KETONES,URINE NEGATIVE (NEGATIVE); LEUKOCYTE ESTERASE ,URINE NEGATIVE (NEGATIVE); NITRITE,URINE NEGATIVE (NEGATIVE); PH,URINE 7.5 (5-9); PROTEIN,URINE TRACE (NEGATIVE)
[2022-03-30 12:47] LABS: BACTERIA,URINE TRACE /HPF; RBC,URINE RARE /HPF; SQUAMOUS EPITHELIAL CELL,UR RARE /HPF; WBC,URINE 0-2 /HPF
--- NOTE | 2022-03-30 14:10 | ED Syncope ---
General Chief Complaint: Dizziness/Syncope Stated Complaint: SYNCOPAL EPISODE Nursing Triage Note: ARRIVED VIA EMS FROM HOME AFTER PASSING OUT WHILE HAVING A BM. STATES THIS HAS HAPPENED MULTIPLE TIMES BEFORE BUT TODAY IT TOOK HIM ABOUT 20 MINS FOR FAMILY TO GET HIM GOOD AND AWAKE. A/O X3 UPON ARRIVAL. PT STATES HE RECEIVES DAILY RADIATION FOR PROSTATE CA. Source of Information: Patient Exam Limitations: No Limitations History of Present Illness Date Seen by Provider: Mar 30, 2022 Time Seen by Provider: 11:02 Initial Comments This 81-year-old gentleman with history of orthostatic hypotension and multiple prior episodes of syncope presents to the emergency room via EMS after having a syncopal episode while sitting on the stool to have a bowel movement today. He did pass the bowel movement and then abruptly became diaphoretic and lightheaded. He then had a brief syncopal episode. He was caught by his and therefore did not hit the floor or suffer any injury. Patient takes midodrine for treatment of orthostatic hypotension. He had not yet taken his midodrine today. He is presently receiving daily radiation therapy for treatment of prostate cancer. He does have some bowel issues related to this. Allergies and Home Medications Allergies Coded Allergies: aloe vera (Verified Allergy, Unknown, RASH, 01/30/22) cephalexin (Verified Allergy, Unknown, FACE THROAT SWELLING, 01/30/22) influenza virus vaccine ts [id number] (36 mos,up) (Verified Allergy, Unknown, TERRIBLE REACTION, 01/30/22) Patient Home Medication List Home Medication List Reviewed: Yes Acetaminophen (Tylenol) 325 Mg Tablet, 650 MG PO Q6H PRN for PAIN-MILD (1-4), (Reported) Entered as Reported by: GUEVARA MONTANO on 02/05/22 1023 Atorvastatin Calcium (Atorvastatin Calcium) 80 Mg Tablet, 80 MG PO HS, (Reported) Entered as Reported by: GUEVARA MONTANO on 11/06/21 1019 Cholecalciferol (Vitamin D3) (Vitamin D3) 50 Mcg (2000 Unit) Tablet, 50 MCG PO DAILY, (Reported) Entered as Reported by: GUEVARA MONTANO on 02/05/22 1023 Diclofenac Sodium (Diclofenac Sodium) 100 Gm Gel..gram., 1 APPLIC TP QID PRN for PAIN-BREAKTHROUGH, (Reported) Entered as Reported by: GUEVARA MONTANO on 11/06/21 1019 Famotidine (Acid Dairy Department Manager (FAMOTIDINE)) 20 Mg Tablet, 20 MG PO HS, (Reported) Entered as Reported by: GUEVARA MONTANO on 11/06/21 1019 Fludrocortisone Acetate (Fludrocortisone Acetate) 0.1 Mg Tab, 0.1 MG PO DAILY, (Reported) Entered as Reported by: GUEVARA MONTANO on 02/05/22 1041 Lactobacillus Acidophilus (Probiotic) 10 Billion Cell Capsule, 1 EACH PO DAILY, (Reported) Entered as Reported by: GUEVARA MONTANO on 02/05/22 1023 Midodrine HCl (Midodrine HCl) 5 Mg Tablet, 5 MG PO 0900,1500,2100, (Reported) Entered as Reported by: GUEVARA MONTANO on 02/05/22 1023 [place]-3/Dha/Epa/Fish Oil (Megared Adv 6X Abs 800 mg Sfgl) 476 Mg-800 Mg Capsule, 1 EACH PO DAILY, (Reported) Entered as Reported by: GUEVARA MONTANO on 02/05/22 1039 Pantoprazole Sodium (Pantoprazole Sodium) 40 Mg Tablet.dr, 40 MG PO BIDAC, (Reported) Entered as Reported by: GUEVARA MONTANO on 11/06/21 1019 Rivaroxaban (Xarelto Tablet) 20 Mg Tablet, 20 MG PO DAILY@1700 Prescribed by: GUILLERMO CABELLO on 02/15/22 1224 Sennosides/Docusate Sodium (Senna-S Tablet) 8.6 Mg-50 Mg Tablet, 1 EACH PO BID PRN for CONSTIPATION-6TH LINE, (Reported) Entered as Reported by: GUEVARA MONTANO on 02/05/22 1023 Silodosin (Silodosin) 8 Mg Capsule, 8 MG PO 1800, (Reported) Entered as Reported by: GUEVARA MONTANO on 02/05/22 1023 Review of Systems Constitutional: no symptoms reported EENTM: no symptoms reported Respiratory: no symptoms reported Cardiovascular: see HPI Gastrointestinal: see HPI Genitourinary: no symptoms reported Musculoskeletal: no symptoms reported Skin: no symptoms reported Psychiatric/Neurological: No Symptoms Reported Past Ugmfrmr-Mnyjza-Yxuxey Hx Patient Social History Smoking Status: Former Smoker Substance use?: No Alcohol Use?: No Immunizations Up To Date Tetanus Booster (TDap): Unknown First/Initial COVID19 Vaccinat: NONE Second COVID19 Vaccination Sid: NONE Third COVID19 Vaccination Date: NONE Past Medical History Surgery/Hospitalization HX: Loop recorder placement, syncop, covid Surgeries: Yes (CATARACTS, PROSTATE BX, CAROTID ENDARTERECTOMY STROKE DURING 05/12, LOOP REC) Eye Surgery, Gallbladder, Vasectomy Respiratory: No Cardiac: Yes (Orthostatic hypotension) Atrial Fibrillation, Coronary Artery Disease, High Cholesterol, Hypotension, Irregular Heartbeat Neurological: Yes (STROKE 04/2021 WITH LEFT SIDE WEAKNESS) Stroke Genitourinary: Yes (PROSTATE CANCER) Benign Prostatic Hyperpl, Prostate Problems, Kidney Stones Gastrointestinal: Yes Gastroesophageal Reflux, Chronic Constipation, Gall Bladder Disease Musculoskeletal: Yes Arthritis, Chronic Back Pain Endocrine: No HEENT: No Cataract Cancer: Yes Prostate Did You Recieve Any Treatments: Yes What Type of Treatment Did You: Radiation Psychosocial: Yes Depression Integumentary: Yes (DRY SKINS) Blood Disorders: No Physical Exam Vital Signs Vital Signs - First Documented 03/30/22 10:33 Temp 36.3 Pulse 82 Resp 16 B/P (MAP) 121/83 (96) Pulse Ox 98 O2 Delivery Room Air Capillary Refill : Less Than 3 Seconds Height, Weight, BMI Height: '" Weight: lbs. oz. kg; 27.00 BMI Method: General Appearance: No Apparent Distress, WD/WN HEENT: PERRL/EOMI, Normal ENT Inspection Neck: Normal Inspection; No Carotid Bruit, No JVD Cardiovascular: Regular Rate, Rhythm, No Edema, No Murmur Respiratory: Lungs Clear, Normal Breath Sounds, No Respiratory Distress Gastrointestinal: Normal Bowel Sounds, Non Tender, Soft Extremities: Normal Inspection, No Pedal Edema Neurologic/Psychiatric: Alert, Oriented x3, No Motor/Sensory Deficits, Normal Mood/Affect, gear hobber operator II-XII Norm as Tested, Other (Tremors) Cranial Nerves: Normal Hearing, Normal Speech, PERRL Motor/Sensory: No Motor Deficit, No Sensory Deficit Skin: Normal Color, Warm/Dry Progress/Results/Core Measures Results/Orders Lab Results Laboratory Tests Test 03/30/22 10:38 03/30/22 12:32 Range/Units White Blood Count 5.1 4.3-11.0 10^3/uL Red Blood Count 4.66 4.30-5.52 10^6/uL Hemoglobin 13.0 L 13.3-17.7 g/dL Hematocrit 42 40-54 % Mean Corpuscular Volume 90 80-99 fL Mean Corpuscular Hemoglobin 28 25-34 pg Mean Corpuscular Hemoglobin Concent 31 L 32-36 g/dL Red Cell Distribution Width 14.2 10.0-14.5 % Platelet Count 191 130-400 10^3/uL Mean Platelet Volume 9.7 9.0-12.2 fL Immature Granulocyte % (Auto) 1 % Neutrophils (%) (Auto) 57 42-75 % Lymphocytes (%) (Auto) 30 12-44 % Monocytes (%) (Auto) 8 0-12 % Eosinophils (%) (Auto) 3 0-10 % Basophils (%) (Auto) 1 0-10 % Neutrophils # (Auto) 2.9 1.8-7.8 10^3/uL Lymphocytes # (Auto) 1.5 1.0-4.0 10^3/uL Monocytes # (Auto) 0.4 0.0-1.0 10^3/uL Eosinophils # (Auto) 0.2 0.0-0.3 10^3/uL Basophils # (Auto) 0.1 0.0-0.1 10^3/uL Immature Granulocyte # (Auto) 0.0 0.0-0.1 10^3/uL Sodium Level 143 135-145 MMOL/L Potassium Level 3.6 3.6-5.0 MMOL/L Chloride Level 107 98-107 MMOL/L Carbon Dioxide Level 21 21-32 MMOL/L Anion Gap 15 H 5-14 MMOL/L Blood Urea Nitrogen 13 7-18 MG/DL Creatinine 1.03 0.60-1.30 MG/DL Estimat Glomerular Filtration Rate 73 BUN/Creatinine Ratio 13 Glucose Level 224 H 70-105 MG/DL Calcium Level 9.6 8.5-10.1 MG/DL Urine Color YELLOW Urine Clarity CLEAR Urine pH 7.5 5-9 Urine Specific [place] 1.015 L 1.016-1.022 Urine Protein TRACE H NEGATIVE Urine Glucose (UA) NEGATIVE NEGATIVE Urine Ketones NEGATIVE NEGATIVE Urine Nitrite NEGATIVE NEGATIVE Urine Bilirubin NEGATIVE NEGATIVE Urine Urobilinogen 0.2 < = 1.0 MG/DL Urine Leukocyte Esterase NEGATIVE NEGATIVE Urine RBC (Auto) NEGATIVE NEGATIVE Urine RBC RARE /HPF Urine WBC 0-2 /HPF Urine Squamous Epithelial Cells RARE /HPF Urine Crystals NONE /LPF Urine Bacteria TRACE /HPF Urine Casts PRESENT /LPF Urine Hyaline Casts 10-25 H /LPF Urine Mucus NEGATIVE /LPF Urine Culture Indicated NO My Orders Orders - ADA QUINTEROS MD Basic Metabolic Panel (03/30/22 11:02) Cbc With Automated Diff (03/30/22 11:02) Ua Culture If Indicated (03/30/22 11:02) Ed Iv/Invasive Line Start (03/30/22 11:02) Orthostatic Vital Signs (Adult (03/30/22 11:02) Lactated Ringers (Lr 1000 Ml Iv Solution (03/30/22 11:15) Ekg Tracing (03/30/22 11:30) Monitor-Rhythm Ecg Trace Only (03/30/22 11:30) Midodrine Tablet (Proamatine) (03/30/22 12:15) Ns Iv 500 Ml (Sodium Chloride 0.9%) (03/30/22 14:30) Medications Given in ED Current Medications Medications Dose Ordered Sig/Otilio Route Start Time Stop Time Status Last Admin Dose Admin Lactated Ringer's 1,000 ml @ 0 mls/hr Q0M ONCE IV 03/30/22 11:15 03/30/22 11:16 DC 03/30/22 11:24 1,000 MLS/HR Midodrine 5 mg ONCE ONCE PO 03/30/22 12:15 03/30/22 12:16 DC 03/30/22 12:36 5 MG Sodium Chloride 500 ml @ 0 mls/hr Q0M ONCE IV 03/30/22 14:30 03/30/22 14:31 DC 03/30/22 14:28 500 MLS/HR Vital Signs/I&O 03/30/22 03/30/22 03/30/22 03/30/22 10:33 10:59 15:14 16:58 Temp 36.3 Pulse 82 82 80 80 88 81 66 92 Resp 16 16 B/P (MAP) 121/83 (96) 120/88 (99) 123/69 (87) 138/84 109/62 (78) 122/68 (86) 88/54 (65) 83/51 (62) Pulse Ox 98 97 O2 Delivery Room Air Room Air Blood Pressure Mean: 65 Progress Progress Note #1: Time: 14:08 Progress Note Patient was hydrated with a liter of fluid and given his morning dose of midodrine. Unfortunately, he is still hypotensive upon standing with systolic blood pressures of 69 and 76 at this time. He was not symptomatic upon standing. Although he was not symptomatic and he often has low blood pressures, I do not feel is appropriate to send him home with a systolic blood pressure of 69. We are going to give another 500 mL fluid bolus and give his midodrine more time to respond. We will recheck his blood pressures after the fluid bolus. Progress Note #2: Time: 16:41 Progress Note Last standing blood pressure was 83 and patient was asymptomatic. He desires to return home and feels safe returning home stating he has been dealing with this problem for over 2 years. He generally has a prodrome of lightheadedness prior to the episodes and lowers himself down to a safe position. I am agreeable to letting him return home at this time with some changes including spacing out the midodrine closer to every 8 hours and changing the hold parameter to systolic blood pressure 140 instead of 130. See discharge instructions for further discussion. Patient's fasting blood sugar this morning was 255. He also had a recent blood sugar of 216 on a prior visit. He has not been recently on dexamethasone. That was a an older prescription. These blood sugars likely represent new onset of type 2 diabetes. This was discussed with patient and family. He was advised to start with dietary changes and glucose monitoring at home. Dr. Cabello can then direct his diabetes care. Initial ECG Impression Date: Mar 30, 2022 Initial ECG Impression Time: 11:59 Initial ECG Rate: 72 Initial ECG Rhythm: Normal Sinus Comment Sinus rhythm with no ST elevation or depression. First-degree AV block with NM interval of 237 ms. No axis deviation. Departure Impression Primary Impression: Orthostatic hypotension Additional Impressions: Syncope Qualified Codes: R55 - Syncope and collapse New onset type 2 diabetes mellitus Disposition: 01 HOME, SELF-CARE Condition: Improved Departure-Patient Inst. Decision time for Depature: 14:12 Referrals: GUILLERMO CABELLO DO (PCP/Family) Primary Care Physician Patient Instructions: Orthostatic Hypotension, Treatment for Type 2 Diabetes Add. Discharge Instructions: Take midodrine 5 mg as close to an 8-hour interval as possible. You may skip the dose if blood pressure at that time is less than 140 on the top number. Oth erwise, try to take as close to every 8 hours as possible. Also use compression socks as previously instructed. Drink plenty of clear liquids to stay well-hydrated. Select water or other sugar-free beverages whenever possible. Eat a diet low in sugars and carbohydrates. Avoid sugary beverages. Carbohydrates include breads, pastas, desserts, and other grain products. Whole-grain products are better than white flour products. Check your blood sugars fasting in the morning and then about 2 hours after a m eal each day. Record these blood sugars and bring them to your appointment with Dr. Cabello. If you have any blood sugars over 350, call Dr. Cabello or return to the emergency room. Follow-up with Dr. Cabello soon as possible. Please call Friday for an appointment. Please also follow-up with your automatic i threading machine feeder as soon as possible. Always be very careful upon arising. It is best to go from a lying position to a sitting position and wait a few minutes before attempting to stand. Always have some sort of support available should you get lightheaded such as a cane, walker, etc. When you do become lightheaded, sit or lie down immediately to avoid falls. Return to the emergency room if you have worsening symptoms. All discharge instructions reviewed with patient and/or family. Voiced understanding. Copy Copies To 1: GUILLERMO CABELLO DO Copies To 2: JUAN CARLOS CHACKO JR, MD BRUEGGEMANN, JOSHUA T MD Mar 30, 2022 14:10
[2022-03-30] MEDS ORDERED: NS IV 500 ML 500 ML IV ONE (14:30)
[2022-03-30 15:14] VITALS: BP_SYST 122; BP_SYST 123; BP_SYST 83; BP_DIAS 51; BP_DIAS 68; BP_DIAS 69
[2022-03-30 16:58] VITALS: BP 138/84
== END 2022-03-30 16:58 | disposition home or self-care (01) ==
LOC: EDUNIT# 10:26 → ER 10:32
DX: I95.1 Orthostatic hypotension (principal); E11.9 Type 2 diabetes mellitus without complications; C61 Malignant neoplasm of prostate; T44.4X6A Underdosing of predominantly alpha-adrenoreceptor agonists, initial encounter; Z91.14 Patient's other noncompliance with medication regimen; Z87.891 Personal history of nicotine dependence; Z98.52 Vasectomy status; Z28.310 Unvaccinated for COVID-19
CPT/HCPCS: 36415; 80048; 81000; 85025; 93005; 93041

== ENCOUNTER 2022-04-16 13:00 | Outpatient (RCR) | payer MEDICARE | END 2022-04-21 | disposition home or self-care (01) | LOC: ONC 13:00 | PROVIDERS: ATTEND Radiology Radiation Oncology | DX: Z51.0 Encounter for antineoplastic radiation therapy (principal); C61 Malignant neoplasm of prostate; E78.00 Pure hypercholesterolemia, unspecified; K21.9 Gastro-esophageal reflux disease without esophagitis; I10 Essential (primary) hypertension; Z98.890 Other specified postprocedural states | CPT/HCPCS: 77300; 77336; 77338; 77385 ==

== ENCOUNTER 2022-04-18 09:47 | Outpatient (RCR) | payer MEDICARE | END 2022-04-21 | disposition home or self-care (01) | PROVIDERS: ATTEND Internal Medicine | DX: I69.354 Hemiplegia and hemiparesis following cerebral infarction affecting left non-dominant side (principal) ==

== ENCOUNTER 2022-05-13 12:55 | Outpatient (RCR) | payer MEDICARE | END 2022-05-22 | disposition home or self-care (01) | LOC: ONC 12:55 | PROVIDERS: ATTEND Radiology Radiation Oncology | DX: Z51.0 Encounter for antineoplastic radiation therapy (principal); C61 Malignant neoplasm of prostate; E78.00 Pure hypercholesterolemia, unspecified; K21.9 Gastro-esophageal reflux disease without esophagitis; I10 Essential (primary) hypertension; Z98.890 Other specified postprocedural states | CPT/HCPCS: 77336; 77385 ==

== ENCOUNTER 2022-05-16 11:15 | Outpatient (RCR) | payer MEDICARE | END 2022-05-22 | disposition home or self-care (01) | PROVIDERS: ATTEND Internal Medicine | DX: I69.354 Hemiplegia and hemiparesis following cerebral infarction affecting left non-dominant side (principal) ==

== ENCOUNTER 2022-06-18 14:02 | Outpatient (RCR) | payer MEDICARE | END 2022-06-21 | disposition home or self-care (01) | PROVIDERS: ATTEND Internal Medicine | DX: I69.354 Hemiplegia and hemiparesis following cerebral infarction affecting left non-dominant side (principal) ==

== ENCOUNTER 2022-07-10 09:01 | Outpatient (RCR) | payer MEDICARE ==
[~2022-07-10 09:01] MED LIST changes: +ALBU8.5H6 IH; -RT-ALBUINH IH
== END 2022-07-22 | disposition home or self-care (01) ==
PROVIDERS: ATTEND Internal Medicine
DX: I69.354 Hemiplegia and hemiparesis following cerebral infarction affecting left non-dominant side (principal)

== ENCOUNTER 2022-07-11 10:27 | Outpatient (RCR) | payer MEDICARE | END 2022-07-22 | disposition home or self-care (01) | LOC: ONC 10:27 | PROVIDERS: ATTEND Radiology Radiation Oncology | DX: C61 Malignant neoplasm of prostate (principal); E78.00 Pure hypercholesterolemia, unspecified; K21.9 Gastro-esophageal reflux disease without esophagitis; I10 Essential (primary) hypertension; Z98.890 Other specified postprocedural states | CPT/HCPCS: 99213 ==

== ENCOUNTER 2022-08-20 14:45 | Outpatient (RCR) | payer MEDICARE ==
[~2022-08-20 14:45] MED LIST changes: +CLOP-31 PO; -CLOP75TA69 PO
== END 2022-08-21 | disposition home or self-care (01) ==
PROVIDERS: ATTEND Internal Medicine
DX: I69.354 Hemiplegia and hemiparesis following cerebral infarction affecting left non-dominant side (principal); Z85.46 Personal history of malignant neoplasm of prostate

== ENCOUNTER 2022-09-03 14:01 | Outpatient (RCR) | payer MEDICARE | END 2022-09-12 10:55 | disposition home or self-care (01) | PROVIDERS: ATTEND Internal Medicine | DX: I69.354 Hemiplegia and hemiparesis following cerebral infarction affecting left non-dominant side (principal); Z85.46 Personal history of malignant neoplasm of prostate ==

== ENCOUNTER → 2023-02-19 | Outpatient (CLI) | payer MEDICARE ==
[~2023-02-19] MED LIST changes: +SENN-271 PO; -SENN1TAB76 PO
--- NOTE | 2023-02-19 18:33 | Diagnostic Imaging Report ---
PROCEDURE: US Renal Bilateral. TECHNIQUE: Multiple real-time grayscale images were obtained over the kidneys in various projections bilaterally. INDICATION: Increased urinary frequency COMPARISON: None. FINDINGS: Both kidneys are normal in size and echogenicity. The right kidney measures 10.5 cm in length and the left is 10.3 cm. The cortical thickness and the cortical medullary differentiation is well maintained. There is no evidence of calculi, focal mass or hydronephrosis. Limited views of the pelvis demonstrate mildly distended urinary bladder. Prevoid bladder volume measures 60 mL. Post void residual measures 24 mm. No large intraluminal masses or calculi are present. There is no ascites. IMPRESSION: 1. Normal renal sonogram. 2. Pre and post void bladder volumes as above. Dictated by: Dictated on workstation # [id number]
== END ==
LOC: RAD 14:40
PROVIDERS: ATTEND Specialist
DX: C61 Malignant neoplasm of prostate (principal); R35.0 Frequency of micturition
CPT/HCPCS: 76770

== ENCOUNTER → 2023-08-05 | Outpatient (CLI) | payer MEDICARE ==
[~2023-08-05] MED LIST changes: -DICL100G13 TOP; +DICL100G60 TOP; +FAMO-356 PO; -FAMO20TA3 PO
--- NOTE | 2023-08-05 17:15 | Diagnostic Imaging Report ---
PROCEDURE: US Renal Bilateral. TECHNIQUE: Multiple real-time grayscale images were obtained over the kidneys in various projections bilaterally. INDICATION: Renal colic Right kidney measures 9.8 x 5.2 x 5.1 cm. Left kidney measures 10.2 x 4.4 x 5.3 cm. There is no mass, calculus or hydronephrosis seen in either kidney. There are calculi present in the urinary bladder. IMPRESSION: Bladder calculus. Kidneys are unremarkable. Dictated by: Dictated on workstation # [id number]
== END ==
LOC: RAD 15:13
PROVIDERS: ATTEND Specialist
DX: N21.0 Calculus in bladder (principal); N23 Unspecified renal colic
CPT/HCPCS: 76770